=== PATIENT | male | born 1960 | race Caucasian/White ===

== ENCOUNTER 2020-03-02 16:23 | Emergency (ER) | payer OTHER, SELFPAY ==
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
[2020-03-02 16:25] VITALS: BP 142/79; PULSE 76; RESP 20; TEMP 36.6; O2SAT 97
[2020-03-02] MEDS: ACETAMINOPHEN 500 MG TABLET 1000 MG PO (17:08)
--- NOTE | 2020-03-02 17:49 | ED.UPPEXIN ---
HPI - Extremity Injury (Upper) General Chief Complaint: Extremity Injury, Upper Stated Complaint: right hand injury Time Seen by Provider: 03/02/20 16:48 History of Present Illness HPI narrative: Patient is a 59-year-old male who presents the ER with right hand pain. He was working with a drill when it caught in spine and jerked his hand. Initially did not have any pain but over the course of a couple hours she started having a lot of pain with movement and with gripping. No numbness or tingling. No direct trauma. Related Data Allergies Allergy/AdvReac Type Severity Reaction Status Date / Time No Known Allergies Allergy Verified 03/02/20 16:28 Review of Systems Musculoskeletal: Comments: right hand pain and swelling Neurologic: Denies focal weakness and Denies numbness PMFSH Past Medical History Medical History (Updated 03/02/20 @ 17:53 by Isidro Conde MD) Healthy adult male Surgical History Surgical History (Updated 03/02/20 @ 17:51 by Isidro Conde MD) No history of previous surgery Social History Social History (Updated 03/02/20 @ 17:51 by Isidro Conde MD) Smoking status: Never smoker Exam Narrative: Exam Narrative: GENERAL: Well-appearing, well-nourished, and in no acute distress. HEAD: Normocephalic, atraumatic. HEART: Regular rate and rhythm. No murmur heard. Normal peripheral pulses. EXTREMITIES: Palpation over the fourth metacarpal of the dorsal aspect of the hand. Slight swelling. No bruising. FROM of digits/wrist. NV intact. SKIN: Warm, dry, no rash. NEURO: No focal deficits. Alert and oriented x3. PSYCH: Normal mood and affect. Course Course Emergency Course: Informed of results. Shakeel wrap applied by nurse. D/c. Vital Signs Vital signs: Vital Signs Temperature 97.9 F 03/02/20 16:25 Pulse Rate 76 03/02/20 16:25 Respiratory Rate 03/02/20 16:25 Blood Pressure 142/79 H 03/02/20 16:25 Pulse Oximetry 97 03/02/20 16:25 Temperature 97.9 F 03/02/20 16:25 Pulse Rate 76 03/02/20 16:25 Respiratory Rate 20 03/02/20 16:25 Blood Pressure 142/79 H 03/02/20 16:25 Pulse Oximetry 97 03/02/20 16:25 MDM - Extremity Injury (Upper) Imaging Data Radiologist's impression: ITS Impressions Hand X-Ray 03/02/20 16:55 IMPRESSION: No acute osseous findings. Wrist X-Ray 03/02/20 16:55 IMPRESSION: No acute osseous findings. Discharge Plan Discharge Clinical Impression: Hand sprain Patient Disposition: Home, Self-Care Condition: Stable Instructions: Hand Sprain (ED) Additional Instructions: Return to the ER if you suffer new injury, you have chest pain or shortness of breath, you cannot keep down food or water, you have additional concerns. Follow-up/Referrals: PHYSICIAN,CONE CHOCOLATE DIPPER [Primary Care Provider] - Gil Ramírez MD [Physician] - 1 Week
== END 2020-03-02 17:58 | disposition home or self-care (01) ==
PROVIDERS: Emergency Provider Emergency Medicine
DX: S63.91XA Sprain of unspecified part of right wrist and hand, initial encounter (principal); W29.8XXA Contact with other powered hand tools and household machinery, initial encounter
CPT/HCPCS: 73110; 73130; 99283; A9270

== ENCOUNTER 2020-12-23 12:05 | Emergency (ER) | payer OTHER, SELFPAY ==
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
[2020-12-23 12:19] VITALS: BP 151/95; PULSE 87; RESP 18; TEMP 36.7; O2SAT 97
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
[2020-12-23] MEDS: HYDROcodone/acetaminophen (*CRX) 5-325 MG TABLET 1 TAB PO (13:04)
== END 2020-12-23 13:29 | disposition home or self-care (01) ==
PROVIDERS: Emergency Provider Emergency Medicine; PCP Internal Medicine
DX: S16.1XXA Strain of muscle, fascia and tendon at neck level, initial encounter (principal); M54.6 Pain in thoracic spine; J43.9 Emphysema, unspecified; M47.812 Spondylosis without myelopathy or radiculopathy, cervical region; M47.814 Spondylosis without myelopathy or radiculopathy, thoracic region; V49.40XA Driver injured in collision with unspecified motor vehicles in traffic accident, initial encounter
CPT/HCPCS: 71046; 72072; 72125; 73030; 99284; A9270

== ENCOUNTER 2021-01-12 16:51 | Outpatient (CLI) | payer OTHER, SELFPAY ==
--- NOTE | ~2021-01-12 | XR_ITS ---
EXAMINATION: XR clavicle LT DATE: 01/12/2021 17:32 INDICATION: Left shoulder pain. TECHNIQUE: 2 views of left clavicle were obtained. COMPARISON: Left shoulder radiographs 12/23/2020 FINDINGS: Bone alignment is normal. No fracture. The sternoclavicular joint and acromioclavicular bev nt are normal. IMPRESSION: 1. Normal left clavicle. Reviewed, dictated and finalized at location A. IMPRESSION: 1. Normal left clavicle.
--- NOTE | ~2021-01-12 | XR_ITS ---
EXAMINATION: XR_RIBSBICXR1_CR DATE: 01/12/2021 17:31 INDICATION: Dorsalgia. Shoulder pain. TECHNIQUE: A single view of the chest, 3 views of the right ribs, and 3 views of the left ribs were o btained. COMPARISON: Chest 2 views 12/23/2020 FINDINGS: There are lucencies in the lungs, consistent with emphysema. No pleural effusion or pneumot horax. The heart size is normal. There is a fracture of anterior right seventh rib. IMPRESSION: 1. Right seventh rib fracture. 2. Emphysema. Reviewed, dictated and finalized at location A.
--- NOTE | ~2021-01-12 | XR_ITS ---
EXAMINATION: XR thoracic spine 2V DATE: 01/12/2021 17:32 INDICATION: Thoracic back pain. TECHNIQUE: 3 views of thoracic spine were obtained. COMPARISON: Thoracic spine radiographs 12/23/2020, chest single view 12/23/2012 FINDINGS: There is kyphosis of thoracic spine. There is mild chronic anterior wedging of multiple pura tebral bodies. There are endplate osteophytes at most levels. There is mildly decreased disc height a t a level in mid thoracic spine. IMPRESSION: 1. No acute fracture. 2. Mild thoracic spondylosis. 3. Thoracic kyphosis. Reviewed, dictated and finalized at location A.
== END 2021-01-12 16:52 | disposition home or self-care (01) ==
LOC: ANHIMG 16:59
PROVIDERS: PCP Nurse Practitioner Family; Visit Provider Nurse Practitioner Family
DX: S22.31XA Fracture of one rib, right side, initial encounter for closed fracture (principal); J43.9 Emphysema, unspecified; M47.814 Spondylosis without myelopathy or radiculopathy, thoracic region; M40.294 Other kyphosis, thoracic region
CPT/HCPCS: 71111; 72070; 73000

== ENCOUNTER → 2021-03-11 12:58 | Outpatient (CLI) | payer OTHER, SELFPAY ==
--- NOTE | ~2021-03-11 | XR_ITS ---
XR knee RT min 4V DATE: 03/11/2021 16:24 INDICATION: Right knee pain. No injury. TECHNIQUE: AP, PA, lateral and sunrise views COMPARISON: None FINDINGS: No fracture or dislocation or joint effusion. No periosteal reaction or bone destruction. J oint spaces are relatively well preserved. No radiopaque intra-articular loose body or chondrocalcino sis. There is femoral and popliteal artery calcification. IMPRESSION: No significant abnormality of the right knee Reviewed, dictated and finalized at location B.
--- NOTE | ~2021-03-11 | XR_ITS ---
XR knee LT min 4V DATE: 03/11/2021 13:30 INDICATION: Left knee pain. No injury. TECHNIQUE: 4 views including sunrise and standing AP, PA and lateral projections COMPARISON: None FINDINGS: There is evidence of a small suprapatellar knee joint effusion. No fracture or dislocation, radiopaque intra-articular loose body or chondrocalcinosis. Joint spaces appear well preserved. No periosteal reaction or bone destruction. IMPRESSION: Small suprapatellar knee joint effusion Reviewed, dictated and finalized at location B.
== END ==
PROVIDERS: PCP Nurse Practitioner Family; Visit Provider Nurse Practitioner Family
DX: M25.569 Pain in unspecified knee (principal); M25.462 Effusion, left knee
CPT/HCPCS: 73564

== ENCOUNTER 2021-11-21 13:29 | Outpatient (CLI) | payer OTHER, SELFPAY ==
--- NOTE | ~2021-11-21 | CT_ITS ---
EXAMINATION:CT lung screening DATE: 11/21/2021 13:48 INDICATION: Personal history of nicotine dependence. Smoker who quit 4 years ago with 60 pack year hi story. TECHNIQUE: Computed tomography (CT) of the chest was performed without intravenous contrast. Automate d exposure control and iterative reconstruction technique were employed. The dose-length product (DLP ) was 85.87 mGy-cm. COMPARISON: None. FINDINGS: There is moderate emphysema. There is an 8 mm nodule in lingula abutting the medial pleura adjacent to the heart. There are other nodules in lingula measuring up to 7 mm. There is a 5 mm nodul e in left upper lobe. There is a 7 mm nodule in left upper lobe. No pleural effusion. The heart size is normal. There are coronary artery calcifications. No pericardial effusion. There is mild chronic a nterior wedging of multiple thoracic vertebral bodies. There is mild thoracic spondylosis. IMPRESSION: 1. Lung-RADS category 4A: Suspicious. Noncontrast chest CT is recommended in 3 months. Reviewed, dictated and finalized at location B.
== END 2021-11-21 13:30 | disposition home or self-care (01) ==
PROVIDERS: PCP Nurse Practitioner Family; Visit Provider Nurse Practitioner Family
DX: Z12.2 Encounter for screening for malignant neoplasm of respiratory organs (principal); Z87.891 Personal history of nicotine dependence
CPT/HCPCS: 71271

== ENCOUNTER 2022-02-28 12:11 | Outpatient (CLI) | payer OTHER, SELFPAY ==
--- NOTE | ~2022-02-28 | CT_ITS ---
EXAMINATION: CT diagnostic chest wo con DATE: 02/28/2022 12:42 INDICATION: Pulmonary nodules TECHNIQUE: Computed tomography (CT) of the chest was performed without intravenous contrast. The dose -length product was 79.73 mGy-cm. Automated exposure control and iterative reconstruction technique w ere employed. COMPARISON: CT dated 11/21/2021 FINDINGS: Interval resolution of 8 mm left upper lobe nodule located medially on prior study. Stable focal scarring at the left apex posteriorly. There is emphysema. There is a stable 5 mm left upper lo be nodule, image 32. There is emphysema. No endobronchial lesions. There are subtle reticulonodular d ensities in the right lower lobe and right middle lobe adjacent to the fissure, likely postinfectious /inflammatory. No pneumothorax. The upper abdomen is unremarkable. Mild thoracic spondylosis with acc entuated kyphosis. IMPRESSION: 1. Stable 5 mm left upper lobe nodule. Reticulonodular densities in the right middle and lower lobe a djacent to the fissure are likely postinfectious/inflammatory. Follow-up low dose CT chest in 12 barak hs recommended. 2: Emphysema. Reviewed, dictated and finalized at location A. IMPRESSION: 1. Stable 5 mm left upper lobe nodule. Reticulonodular densities in the right m iddle and lower lobe adjacent to the fissure are likely postinfectious/inflamma tory. Follow-up low dose CT chest in 12 months recommended. 2: Emphysema.
== END 2022-02-28 12:12 | disposition home or self-care (01) ==
PROVIDERS: PCP Nurse Practitioner Family; Visit Provider Nurse Practitioner Family
DX: R91.8 Other nonspecific abnormal finding of lung field (principal); J43.9 Emphysema, unspecified
CPT/HCPCS: 71250

== ENCOUNTER 2022-07-12 15:12 | Outpatient (CLI) | payer OTHER, SELFPAY ==
--- NOTE | ~2022-07-12 | XR_ITS ---
Left Shoulder Technique: AP and scapular Y views were obtained. Clinical History: Pain Findings: No fracture or dislocation is seen. Osseous alignment is anatomic. The glenohumeral and acr omioclavicular joint spaces are preserved. Soft tissues are unremarkable. Impression: Unremarkable left shoulder radiographs. Reviewed, dictated and finalized at [facility]. 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
--- NOTE | ~2022-07-12 | XR_ITS ---
Right Shoulder Technique: AP and scapular Y views were obtained. Clinical History: Pain Findings: No fracture or dislocation is seen. Osseous alignment is anatomic. The glenohumeral and acr omioclavicular joint spaces are preserved. Soft tissues are unremarkable. Impression: Unremarkable right shoulder radiographs. Reviewed, dictated and finalized at [facility]. ON PRESSER Impression: Unremarkable right shoulder radiographs.
== END 2022-07-12 15:13 | disposition home or self-care (01) ==
PROVIDERS: PCP Nurse Practitioner Family; Visit Provider Nurse Practitioner Family
DX: M25.519 Pain in unspecified shoulder (principal)
CPT/HCPCS: 73030

== ENCOUNTER 2023-02-19 12:46 | Outpatient (CLI) | payer OTHER, SELFPAY ==
--- NOTE | ~2023-02-19 | CT_ITS ---
CT Scan of the Chest without Contrast: Clinical Indication: Lung cancer screening, personal history of nicotine dependence Technique: Contiguous sections were acquired throughout the chest without intravenous contrast. Dose reduction technique was used on this scan by utilizing automated exposure control and iterative recon struction technique. The dose-length product (DLP) was 95.78 mGy-cm. COMPARISON: 02/28/2022, 11/21/2021 Findings: There is no evidence of any significant mediastinal, hilar or axillary lymphadenopathy. Atherosclerot ic calcifications of the coronary arteries are present. There is no evidence of pleural or pericardial effusion. There is a new 5 mm nodule at the anteromedial right upper lobe (axial image 71). Stable 5 mm left up per lobe pulmonary nodule noted (axial image 35). There is an additional new left upper lobe pulmonar y nodule measuring 6 mm (axial image 50). Previously noted lingular nodules are essentially completel y resolved. There is a new 7 mm nodule in the left lower lobe (axial image 90). Images through the upper abdomen reveal no abnormalities. Impression: Lung RADS 4A: Suspicious. 3 month follow-up screening CT recommended given new 7 mm nodule at the lef t lower lobe. Reviewed, dictated and finalized at location M. Impression: Lung RADS 4A: Suspicious. 3 month follow-up screening CT recommended given new 7 mm nodule at the left lower lobe.
== END 2023-02-19 12:47 | disposition home or self-care (01) ==
PROVIDERS: PCP Nurse Practitioner Family; Visit Provider Nurse Practitioner Family
DX: Z12.2 Encounter for screening for malignant neoplasm of respiratory organs (principal); Z87.891 Personal history of nicotine dependence; R91.8 Other nonspecific abnormal finding of lung field
CPT/HCPCS: 71271

== ENCOUNTER 2023-05-23 12:40 | Outpatient (CLI) | payer OTHER, SELFPAY ==
--- NOTE | ~2023-05-23 | CT_ITS ---
EXAMINATION: CT diagnostic chest wo con DATE: 05/23/2023 12:58 INDICATION: Pulmonary nodules TECHNIQUE: Computed tomography (CT) of the chest was performed without intravenous contrast. The dose -length product (DLP) was 101.59 mGy-cm. Automated exposure control and iterative reconstruction tech [employer] were employed. COMPARISON: 02/19/2023 FINDINGS: There is moderate emphysema. There has been near-complete interval resolution of the new 5 mm right upper lobe nodule on the comparison examination. A 9 mm left lower lobe nodule described as new on the comparison examination has resolved. There are stable nodules of the left upper lobe measu ring up to 6 mm. There is focal airspace opacity in the right upper lobe, consistent with infection/i nflammation. No pleural effusion or pneumothorax. No pathologically enlarged thoracic lymph nodes are identified. The heart size is normal. Calcified coronary artery atherosclerosis is noted. There is m ild thoracic spondylosis. IMPRESSION: 1. Interval resolution of the pulmonary nodules described as new on the recent lung cancer screening CT, consistent with resolved infection/inflammation. 2. New focal airspace opacity in the right upper lobe, consistent with infection/inflammation. 3. Otherwise stable pulmonary nodules. Annual lung cancer screening CT is recommended. Reviewed, dictated and finalized at location B. 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 Interval resolution of the pulmonary nodules described as new on the recent lung cancer screening CT, consistent with resolved infection/inflammation. 2. New focal airspace opacity in the right upper lobe, consistent with infectio n/inflammation. 3. Otherwise stable pulmonary nodules. Annual lung cancer screening CT is recom mended.
== END 2023-05-23 12:41 | disposition home or self-care (01) ==
PROVIDERS: PCP Nurse Practitioner Family; Visit Provider Nurse Practitioner Family
DX: R91.8 Other nonspecific abnormal finding of lung field (principal)
CPT/HCPCS: 71250

== ENCOUNTER 2023-05-31 13:23 | Outpatient (CLI) | payer OTHER, SELFPAY ==
--- NOTE | ~2023-05-31 | MR_ITS ---
MRI of the brain Clinical History: Memory impairment Technique: Axial and sagittal T1-weighted images were acquired. These were followed by axial T2-weigh nicolasa, diffusion weighted, gradient, and FLAIR images. Following intravenous administration of 15 cc Mu ltiHance gadolinium, T1-weighted fat-sat imaging was performed in the axial and coronal planes. Findings: No abnormal signal seen in the brain parenchyma. No acute infarct, intracranial hemorrhage, or mass lesion. Ventricles and subarachnoid spaces are unremarkable. Orbits are unremarkable. Paranasal sinuses and m astoid air cells are clear. Major intracranial flow voids are intact. Sagittal midline structures are intact. No abnormal postcontrast enhancement identified. IMPRESSION: Unremarkable exam. Reviewed, dictated and finalized at location M. STERED RESPIRATORY TECHNICIAN IMPRESSION: Unremarkable exam.
== END 2023-05-31 13:24 | disposition home or self-care (01) ==
PROVIDERS: PCP Nurse Practitioner Family; Visit Provider Nurse Practitioner Family
DX: R41.3 Other amnesia (principal)
CPT/HCPCS: 70553; A9577

== ENCOUNTER 2023-06-14 11:20 | Emergency (ER) | payer OTHER, SELFPAY ==
--- NOTE | ~2023-06-14 | XR_ITS ---
XR chest 2V DATE: 06/14/2023 12:01 INDICATION: Chest pain, upper back pain. No injury. TECHNIQUE: 2 views COMPARISON: 05/23/2023 CT chest 12/23/2020 2 view chest FINDINGS: There is bilateral hyperinflation consistent with COPD. No pulmonary infiltrate or consolidation, pleural effusion or pulmonary vascular congestion or pneumo thorax is detected. Normal heart size. No hilar or mediastinal enlargement. No suspicious osteolytic or osteoblastic lesions are identified. IMPRESSION: Moderate emphysema; no active cardiopulmonary disease Reviewed, dictated and finalized at location L. IN [employer]ORTER
--- NOTE | ~2023-06-14 | XR_ITS ---
EXAMINATION: XR thoracic spine 3V DATE: 06/14/2023 12:01 INDICATION: Centralized upper back pain TECHNIQUE: One AP, lateral and lateral swimmer's views of the thoracic spine were obtained. COMPARISON: 12/23/2020 FINDINGS: Visualized portion of lungs are clear. No pleural effusion or pneumothorax. Cardiomediastinal silhoue tte is normal. Again seen is a mild to moderate thoracic kyphosis with chronic mild anterior wedging of a few mid and lower thoracic vertebral bodies. Multilevel mild thoracic disc height loss and small degenerative endplate osteophytes. IMPRESSION: 1. Mild to moderate thoracic kyphosis with multiple chronic mild compression fractures in the mid to lower thoracic spine. 2. Mild thoracic spondylosis. Reviewed, dictated and finalized at location A. [employer] IMPRESSION: 1. Mild to moderate thoracic kyphosis with multiple chronic mild compression fr actures in the mid to lower thoracic spine. 2. Mild thoracic spondylosis.
[2023-06-14 11:22] VITALS: BP 121/73; PULSE 86; RESP 20; TEMP 36.2; O2SAT 97
--- NOTE | 2023-06-14 11:35 | ECG_ITS ---
Measurements Intervals [place] Rate: 83 P: 14 VT: 163 QRS: -8 QRSD: 88 T: -6 QT: 346 QTc: 407 Interpretive Statements SINUS RHYTHM INCOMPLETE RIGHT BUNDLE BRANCH BLOCK BORDERLINE T WAVE ABNORMALITY- INFERIOR LEADS BORDERLINE ECG NO PREVIOUS ECG AVAILABLE FOR COMPARISON Electronically Signed On 06-14-2023 12:24:09 AUTOMATIC PINSETTER ADJUSTER by Zion Freedman D.O.
--- NOTE | 2023-06-14 11:48 | PC.NURSE ---
pt states they would like to decline the muscle relaxer because they are unable to get a ride after discharge today as well as plans to run errands. pt states they took 800mg of alieve @1000 that is helping relieve the pain.
[2023-06-14 12:35] LABS: Basophils Percent Auto 0.5 % (0.2-1.2); Eosinophils Absolute Auto 0.2 K/mm3 (0-0.3); Eosinophils Percent Auto 3.2 % (0-4.4); Hematocrit 41.5 % (42.0-52.0); Hemoglobin 14.9 g/dL (14.0-18.0); Immature Granulocyte Absolute 0.04 K/mm3 (0.00-0.031); Immature Granulocyte Percent A 0.5 % (0-0.5); Lymphocytes Absolute Auto 1.92 K/mm3 (0.9-3.2); Lymphocytes Percent Auto 25.9 % (18.3-44.2); Mean Corpuscular HGB Conc 35.9 g/dl (32-36); Mean Corpuscular Hemoglobin 33.1 pg (26-34); Mean Corpuscular Volume 92.2 fl (80-100); Mean Platelet Volume 8.3 fl (7.4-10.4); Monocytes Absolute Auto 0.9 K/mm3 (0.1-0.6); Monocytes Percent Auto 12.7 % (2.6-8.5); Neutrophils Absolute Auto 4.2 K/mm3 (1.3-6.7); Neutrophils Percent Auto 57.2 % (45.5-73.1); Platelet Count Result 192 k/mm3 (150-375); Red Cell Distribution Width 12.1 % (11.5-14.5); White Blood Count 7.4 K/mm3 (4.5-10.0)
[2023-06-14 12:45] LABS: Alanine Aminotransferase 41 U/L (6-50); Albumin Level 4.1 g/dL (3.5-5.1); Alkaline Phosphatase 85 U/L (38-126); Anion Gap 7 mmol/L (8-16); Aspartate Amino Transferase 37 U/L (17-59); Bilirubin,Total 0.5 mg/dL (0.2-1.3); Blood Urea Nitrogen 12 mg/dL (9-20); Calcium 8.8 mg/dL (8.4-10.2); Carbon Dioxide 28 mmol/L (22-30); Chloride 100 mmol/L (98-107); Estimated CRCL calculation 102 ml/min; Estimated Glomerular Filt Rate > 60; Glucose 97 mg/dL (65-110); Potassium 4.5 mmol/L (3.4-5.0); Sodium 135 mmol/L (137-145)
[2023-06-14 12:46] LABS: INR 0.9; Prothrombin Time 12.4 Seconds (11.1-14.7)
[2023-06-14 12:48] LABS: Partial Thromboplastin Time 42.2 SECONDS (22.3-36.8)
[2023-06-14 12:59] LABS: Troponin I < 0.012 ng/mL (0.000-0.034)
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
[2023-06-14 14:11] VITALS: BP 119/79
== END 2023-06-14 14:13 | disposition home or self-care (01) ==
PROVIDERS: Emergency Provider Emergency Medicine; PCP Nurse Practitioner Family
DX: M54.6 Pain in thoracic spine (principal); E78.00 Pure hypercholesterolemia, unspecified; K21.9 Gastro-esophageal reflux disease without esophagitis; F41.9 Anxiety disorder, unspecified; F32.A Depression, unspecified; Z87.891 Personal history of nicotine dependence; M47.814 Spondylosis without myelopathy or radiculopathy, thoracic region; J43.9 Emphysema, unspecified; I45.10 Unspecified right bundle-branch block; R94.31 Abnormal electrocardiogram [ECG] [EKG]; M48.54XA Collapsed vertebra, not elsewhere classified, thoracic region, initial encounter for fracture
CPT/HCPCS: 36415; 71046; 72072; 80053; 84484; 85025; 85610; 85730; 93005; 99284

== ENCOUNTER 2023-06-17 12:30 | Inpatient (IN) | payer OTHER, SELFPAY ==
[2023-06-17] VITALS (9 sets, daily range): BP systolic 102–151; BP diastolic 59–106; PULSE 75–130; RESP 13–28; TEMP 36.5–37.2; O2SAT 85–97; BMI 23.6
--- NOTE | ~2023-06-17 | XR_ITS ---
XR chest 2V DATE: 06/17/2023 13:16 INDICATION: Cough, shortness of breath. History of COPD TECHNIQUE: AP and lateral views COMPARISON: 06/14/2023 PA and lateral chest FINDINGS: Bilateral hyperinflation, consistent with clinical diagnosis of COPD. There is interval pulmonary vascular congestion and prominence of the fissures and there are prominen t bilateral Harjeet B-lines. There are bilateral pulmonary infiltrates, predominating in the lower lung zones, right greater than left. Differential diagnosis of the pulmonary infiltrates includes pulmonary edema, pneumonia, aspira tion. Normal heart size. Osteopenia. IMPRESSION: Congestive changes and pulmonary edema Bilateral pulmonary infiltrates which may be due to pulmonary edema or pneumonia or aspiration COPD Reviewed, dictated and finalized at location A. STAND LOADER IMPRESSION: Congestive changes and pulmonary edema Bilateral pulmonary infiltrates which may be due to pulmonary edema or pneumoni a or aspiration COPD
--- NOTE | ~2023-06-17 | CT_ITS ---
EXAMINATION: CTA chest PE protocol DATE: 06/17/2023 18:19 INDICATION: Cough and shortness of breath TECHNIQUE: Computed tomography angiography (CTA) of the chest was performed with 100 mL Omnipaque-350 intravenous contrast timed to evaluate the pulmonary arteries. Coronal maximum intensity projection 3D-reconstructions were created by the technologist. The dose-length product (DLP) was 314.92 mGy-cm. Automated exposure control and iterative reconstruction technique were employed. COMPARISON: 05/23/2023 FINDINGS: The pulmonary arteries are well-opacified. No pulmonary embolism is identified. There are s mall pleural effusions. There is moderate emphysema. There are new airspace opacities of the lower lo bes and right middle lobe. There is a decreasing airspace opacity of the right upper lobe. No pneumot horax is identified. There is mild bilateral hilar lymphadenopathy, likely reactive. The heart size i s normal. Calcified coronary artery atherosclerosis is noted. There is mild thoracic spondylosis. IMPRESSION: 1. Multifocal pneumonia of the lower lobes and right middle lobe. No pulmonary embolus identified. 2. Moderate emphysema. Reviewed, dictated and finalized at location F. CAN HISTORY PROFESSOR
--- NOTE | 2023-06-17 12:46 | ECG_ITS ---
Measurements Intervals [place] Rate: 103 P: 44 [place]: 148 QRS: 73 QRSD: 85 T: 89 QT: 317 QTc: 416 Interpretive Statements SINUS TACHYCARDIA POSSIBLE LEFT ATRIAL ENLARGEMENT INCOMPLETE RIGHT BUNDLE BRANCH BLOCK BORDERLINE T WAVE ABNORMALITY- HIGH LATERAL LEADS BASELINE ARTIFACT- II, III, AVF, V4-V5 BORDERLINE ECG COMPARED TO ECG 06/14/2023 11:47:00 SINUS TACHYCARDIA NOW PRESENT Electronically Signed On 06-17-2023 16:10:54 UNDERWRITING SERVICE REPRESENTATIVE by Zion Freedman D.O.
[2023-06-17 13:15] LABS: Basophils Absolute Auto 0.1 K/mm3 (0.0-0.1); Basophils Percent Auto 0.7 % (0.2-1.2); Eosinophils Absolute Auto 0.2 K/mm3 (0-0.3); Eosinophils Percent Auto 2.1 % (0-4.4); Hematocrit 46.3 % (42.0-52.0); Hemoglobin 15.8 g/dL (14.0-18.0); Immature Granulocyte Absolute 0.04 K/mm3 (0.00-0.031); Immature Granulocyte Percent A 0.5 % (0-0.5); Lymphocytes Absolute Auto 1.28 K/mm3 (0.9-3.2); Lymphocytes Percent Auto 14.7 % (18.3-44.2); Mean Corpuscular HGB Conc 34.1 g/dl (32-36); Mean Corpuscular Hemoglobin 32.7 pg (26-34); Mean Corpuscular Volume 95.9 fl (80-100); Mean Platelet Volume 8.6 fl (7.4-10.4); Monocytes Absolute Auto 0.9 K/mm3 (0.1-0.6); Monocytes Percent Auto 9.9 % (2.6-8.5); Neutrophils Absolute Auto 6.3 K/mm3 (1.3-6.7); Neutrophils Percent Auto 72.1 % (45.5-73.1); Platelet Count Result 204 k/mm3 (150-375); Red Blood Count 4.83 M/mm3 (4.6-6.20); Red Cell Distribution Width 12.3 % (11.5-14.5); White Blood Count 8.7 K/mm3 (4.5-10.0)
[2023-06-17 13:26] LABS: Alanine Aminotransferase 39 U/L (6-50); Albumin Level 4.1 g/dL (3.5-5.1); Alkaline Phosphatase 116 U/L (38-126); Anion Gap 15 mmol/L (8-16); Aspartate Amino Transferase 51 U/L (17-59); Bilirubin,Total 0.7 mg/dL (0.2-1.3); Blood Urea Nitrogen 13 mg/dL (9-20); Calcium 8.6 mg/dL (8.4-10.2); Carbon Dioxide 19 mmol/L (22-30); Chloride 102 mmol/L (98-107); Estimated CRCL calculation 90 ml/min; Estimated Glomerular Filt Rate > 60; Glucose 153 mg/dL (65-110); Potassium 3.9 mmol/L (3.4-5.0); Sodium 136 mmol/L (137-145)
--- NOTE | 2023-06-17 13:29 | ED.SOB ---
HPI - SOB/Dyspnea General Chief Complaint: Shortness of Breath/Dyspnea Stated Complaint: back pain Time Seen by Provider: 06/17/23 13:16 Source: patient and family Mode of arrival: ambulatory Limitations: no limitations History of Present Illness HPI Narrative: 63 YEARS OLD WHITE MALE CAME TO THE EMERGENCY ROOM WITH HIS PATIENT WAS SEEN IN OUR EMERGENCY ROOM 2 DAYS AGO WITH THE SAME SYMPTOMS AND WAS DISCHARGED ON NAPROXEN AND TIZANIDINE. HISTORY OF COPD, HYPERLIPIDEMIA, AND ACID REFLUX. PATIENT DENIES ANY CHEST PAIN. IN THE ED PATIENT IS TELLING ME HE FEELS BETTER RIGHT NOW COMPARED TO AT HOME. AFTER TAKING ALL THIS MEDICATION PRIOR TO ARRIVAL. Related Data Home Medications Medication Instructions Recorded Confirmed omeprazole 20 mg capsule,delayed 20 mg PO DAILY 10/31/21 06/17/23 release alendronate 70 mg tablet 70 mg PO WEEKLY 11/10/22 06/17/23 trazodone 100 mg tablet 100 mg PO HS 11/10/22 06/17/23 albuterol sulfate 90 mcg/actuation 2 puff inhalation Q6H PRN Wheezing 06/17/23 06/17/23 aerosol inhaler cholecalciferol (vitamin D3) 125 125 mcg PO DAILY 06/17/23 06/17/23 mcg (5,000 unit) capsule fluticasone fur. 100 mcg-umeclid 1 inh inhalation QAM 06/17/23 06/17/23 62.5 mcg-vilant 25 mcg inhalat.powder (Trelegy Ellipta) folic acid 1 mg tablet 1 mg PO DAILY 06/17/23 06/17/23 propranolol 10 mg tablet 10 mg PO DAILY 06/17/23 06/17/23 simvastatin 20 mg tablet 20 mg PO DAILY 06/17/23 06/17/23 Allergies Allergy/AdvReac Type Severity Reaction Status Date / Time No Known Allergies Allergy Verified 01/12/23 12:47 Review of Systems Review of Systems: All systems reviewed & are unremarkable except as noted in HPI and below PMFSH Past Medical History Medical History (Updated 06/18/23 @ 04:43 by Lisa Mcghee DO) Anxiety and depression COPD with chronic bronchitis and emphysema Former smoker GERD (gastroesophageal reflux disease) Heavy alcohol use Hypercholesteremia Osteoporosis Surgical History Surgical History History of tonsillectomy Social History Social History (Updated 06/18/23 @ 04:43 by Lisa Mcghee DO) Social History: Patient reports he smoke 1 pack of cigarettes per day but quit smoking in 2019. He occasionally will vape some marijuana. He is single and never been . He does not have any children. He lives alone. 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 Code status: Full code Smoking packs per day: 1 Smoking cigarettes per day: 20.0 Years smoked: 40 Smoking pack-years: 40.00 Smoking status: Former smoker Tobacco type: cigarettes Second hand tobacco smoke exposure: No Smoking end date: 04/15/91 Alcohol intake: current Drinks per week: 4 Alcohol use details: wine Substance use: never Substance use type: does not use Do You Feel Safe in your Home?: Yes Lack of Transportation: No Lack of Food: Never True Current Housing: I Have Housing Concerned About Future Housing: No Difficulty Paying Gas/Electric Bills: No Difficulty Paying for Meds: No Currently Unemployed: No Education: High School Diploma/GED Difficulty w/ Childcare or Family Care: No Living arrangements: with family Occupation/Education: unemployed 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 Gender identity (if verbalized by the patient): Male Spiritual care concerns: No Exam Narrative: GENERAL APPEARANCE: WELL-DEVELOPED, WELL-NOURISHED SKIN: NORMAL COLOR HEAD: NORMOCEPHALIC, NONTRAUMATIC EYES: CLEAR CONJUNCTIVA ENT: OROPHARYNX NORMAL, EARS NORMAL, NOSE NORMAL NECK: SUPPLE, NONTENDER CHEST AND RESPIRATORY: AIRWAY PATENT, NO RESPIRATORY DISTRESS, NO ACCESSORY MUSCLE USE HEART: REGULAR RATE/RHYTHM ABDOMEN: SOFT, NONTENDER, NO ORGANOMEGALY, QUIET BOWEL SOUNDS VASCULAR: NORMAL PERIPHERAL PULSES, NORMAL CAPILLARY REFILL. MUSCULOSKELETAL: NORMAL RANG
[2023-06-17 13:51] LABS: Influenza A QL RT-PCR Negative (Negative); Influenza B QL RT-PCR Negative (Negative); RSV RNA, RT-PCR Negative (Negative); SARS-CoV-2 RNA PCR Negative (Negative)
[2023-06-17 15:02] LABS: Influenza A QL RT-PCR Negative (Negative); Influenza B QL RT-PCR Negative (Negative); RSV RNA, RT-PCR Negative (Negative); SARS-CoV-2 RNA PCR Negative (Negative)
[2023-06-17 15:54] LABS: CRP 1.9 mg/dL (<1.0)
[2023-06-17 16:13] LABS: Troponin I 0.534 ng/mL (0.000-0.034)
[2023-06-17 16:15] LABS: D Dimer 0.85 ug/mL (<0.48)
[2023-06-17 16:36] LABS: Erythrocyte Sedimentation Rate 18 mm/hr (0-20)
[2023-06-17] MEDS: ONDANSETRON INJ 4 MG/2 ML VIAL IV PUSH (17:54)
[2023-06-17] MEDS: MORPHINE SULFATE (*CRX) 4 MG/ML INJ IV PUSH (17:54)
--- NOTE | 2023-06-17 18:42 | ECG_ITS ---
Measurements Intervals [place] Rate: 93 P: 40 [place]: 175 QRS: 58 QRSD: 81 T: 76 QT: 330 QTc: 411 Interpretive Statements SINUS RHYTHM BORDERLINE ST-T WAVE ABNORMALITY- HIGH LATERAL LEADS BORDERLINE ECG COMPARED TO ECG 06/17/2023 12:51:50 SINUS RHYTHM NOW PRESENT Electronically Signed On 06-18-2023 6:46:59 SUPERVISOR RIVETING by Zion Freedman D.O.
[2023-06-17] MEDS: ASPIRIN 81 MG CHEWABLE TABLET 324 MG PO (18:49)
[2023-06-17] MEDS: diazePAM INJ (*CRX) 10 MG/2 ML SYRINGE 5 MG IV PUSH (18:50)
[2023-06-17] MEDS: IPRATROPIUM BR 0.02% INH SOLN 0.5 MG/2.5 ML VIAL INHALATION (20:42)
[2023-06-17] MEDS: ALBUTEROL SULFATE NEB 2.5 MG/3 ML INH INHALATION (20:42)
[2023-06-17] MEDS: HEPARIN SOD/D5W 100 UNITS/ML 25,000 UNITS/250 ML BAG 9 UNITS IV CONT (21:04)
[2023-06-17] MEDS: HEPARIN SODIUM 5,000 UNITS/ML VIAL 4000 UNITS IV PUSH (21:04)
--- NOTE | 2023-06-17 21:56 | ADMGEN ---
This patient, Edgar Laguna, was admitted to IMU Room 202-01. @[id number] Patient/family oriented to hospital policies and general routines including ID bracelet, bed and alarms, visiting hours, pain management, procedures, bathroom and other care routines, personal items, smoking policy, room service/diet, and visiting hours. Information on how to activate the Rapid Response Team has been discussed. Patient/Family are encouraged to report perceived risks to care and to ask questions if they do not understand what they are told or what they should do.
[2023-06-17] MEDS: AZITHROMYCIN 500 MG/NS 250 ML 500 MG/250 ML BAG 250 MG IVPB (22:04)
[2023-06-17 22:36] LABS: Lipase 207 U/L (23-300)
--- NOTE | 2023-06-17 22:57 | ECG_ITS ---
Measurements Intervals [place] Rate: 93 P: 52 [place]: 162 QRS: 79 QRSD: 85 T: 81 QT: 329 QTc: 410 Interpretive Statements SINUS RHYTHM INCOMPLETE RIGHT BUNDLE BRANCH BLOCK BASELINE ARTIFACT- I, III, AVR, AVL, V1 BORDERLINE ECG COMPARED TO ECG 06/17/2023 19:10:47 NO SIGNIFICANT CHANGES Electronically Signed On 06-18-2023 7:45:56 STEWARD/STEWARDESS SECOND CLASS by Zion Freedman D.O.
[2023-06-18] VITALS (27 sets, daily range): BP systolic 70–126; BP diastolic 59–81; PULSE 72–109; RESP 12–24; TEMP 36.4–37; O2SAT 91–100
--- NOTE | 2023-06-18 | ECHO_ITS ---
Patient Info Name: Edgar Laguna Age: 63 years : 1960 Gender: Male Ht: 61 in Wt: 168 lbs BSA: 1.84 m2 HR: 86 bpm BP: 101 / 67 mmHg Heart Rhythm: Sinus Rhythm Technical Quality: Poor Exam Date: 06/18/2023 9:18 AM Exam Location: Echo Lab Patient Status: Outpatient Admit Date: 06/17/2023 Staff Ordering Physician: Lisa Mcghee DO Attending Provider: Lisa Mcghee DO Referring Physician: Taz MELARA; Exam Type: CA echo dop color flow w con Study Info Indications I21.4 - Non-ST elevation (NSTEMI) myocardial infarction Complete two-dimensional, color flow and Doppler transthoracic echocardiogram is performed with contrast to opacify the left ventricle and to improve the deliniation of the left ventricle endocardial borders. Contrast/Agitated Saline Contrast/Ag. Saline: Definity Amount: 2.00 ml Existing IV Access: Yes IV Access Condition: patent with no signs of infiltration Reason for Poor Study: patient body habitus Summary 1. Technically difficult study with limited views. Definity contrast administered. 2. Left ventricular chamber dimension is normal. 3. Left ventricular systolic function is moderately reduced, estimated at 30-35%. Akinesis of the apex with relative sparing at the bases. 4. There is mild to moderately increased left ventricular wall thickness. 5. The left ventricular diastolic function is grade I diastolic dysfunction. 6. Heavy trabeculation noted at the LV apex, however, there is no clear thrombus visualized in the left ventricle. 7. There is mild mitral valve regurgitation. Left Ventricle Left ventricular chamber dimension is normal. Left ventricular systolic function is moderately reduced, estimated at 30-35%. Akinesis of the apex with relative sparing at the bases. There is mild to moderately increased left ventricular wall thickness. The left ventricular diastolic function is grade I diastolic dysfunction. Heavy trabeculation noted at the LV apex, however, there is no clear thrombus visualized in the left ventricle. Technically difficult study with limited views. Definity contrast administered. Right Ventricle Right ventricular chamber dimension is normal. Right ventricular systolic function is mildly reduced. TAPSE 1.7. Left Atria Left atrial chamber dimension is normal. Right Atria Right atrial chamber dimension is normal. Aortic Valve The aortic valve is not well visualized. There is no aortic valve stenosis. There is no aortic valve regurgitation. Pulmonic Valve The pulmonic valve is not well visualized. There is trace pulmonic regurgitation. Mitral Valve The mitral valve has thickened leaflets. There is mild mitral valve regurgitation. The mitral valve annulus is mildly calcified. Tricuspid Valve The tricuspid valve is not well visualized. Unable to estimate PA systolic pressure due to poor spectral resolution of tricuspid regurgitant jet velocity. Pericardium/Pleural The pericardium appears not well visualized. Inferior Vena Cava Normal inferior vena cava with >50% collapse upon inspiration consistent with normal right atrial pressure, 5 mmHg. Aorta The aortic root size at the sinus of Valsalva is normal. There is mild aortic atherosclerosis. Left Ventricular Outflow Tract Name Value Normal LVOT 2D
[2023-06-18] MEDS: NITROGLYCERIN SL 0.4 MG TABLET SUBLINGUAL (02:26)
[2023-06-18] MEDS: IPRATROPIUM BR 0.02% INH SOLN 0.5 MG/2.5 ML VIAL INHALATION ×4 (02:37→21:06)
[2023-06-18] MEDS: ALBUTEROL SULFATE NEB 2.5 MG/3 ML INH INHALATION ×4 (02:37→21:06)
[2023-06-18] MEDS: NITROGLYCERIN OINTMENT 1 INCH DOSE TRANSDERM ×3 (02:49→11:35)
[2023-06-18 03:33] LABS: Basophils Absolute Auto 0.1 K/mm3 (0.0-0.1); Basophils Percent Auto 0.6 % (0.2-1.2); Eosinophils Absolute Auto 0.2 K/mm3 (0-0.3); Eosinophils Percent Auto 1.4 % (0-4.4); Hematocrit 39.5 % (42.0-52.0); Hemoglobin 13.6 g/dL (14.0-18.0); Immature Granulocyte Absolute 0.04 K/mm3 (0.00-0.031); Immature Granulocyte Percent A 0.4 % (0-0.5); Lymphocytes Absolute Auto 2.34 K/mm3 (0.9-3.2); Lymphocytes Percent Auto 21.2 % (18.3-44.2); Mean Corpuscular HGB Conc 34.4 g/dl (32-36); Mean Corpuscular Volume 95.9 fl (80-100); Mean Platelet Volume 8.8 fl (7.4-10.4); Monocytes Absolute Auto 1.1 K/mm3 (0.1-0.6); Monocytes Percent Auto 9.5 % (2.6-8.5); Neutrophils Absolute Auto 7.4 K/mm3 (1.3-6.7); Neutrophils Percent Auto 66.9 % (45.5-73.1); Platelet Count Result 180 k/mm3 (150-375); Red Blood Count 4.12 M/mm3 (4.6-6.20); Red Cell Distribution Width 12.5 % (11.5-14.5)
--- NOTE | 2023-06-18 03:44 | PM.IMHP ---
H&P: HPI History of Present Illness Date/Time: 06/18/23 03:44 Chief Complaint: back pain Narrative: 63-year-old male with past medical history of osteoporosis, COPD, hypertension, GERD and insomnia who presented to the ER via private vehicle due to mid upper back pain. The patient reports that he has had 4 days of back pain. He came to the ER couple of days ago receive prescriptions for tramadol and Flexeril. He reports that the pain did not improved despite taking 100 mg of tramadol, naproxen, and 1.5 g of Tylenol. So I decided she drinks some rubs which seemed to help his pain. He went to bed and fell asleep. When he woke up the pain had returned. When it returned nose accompanied by chest heaviness that extended across his shoulders. The pain went up into his lower neck. With the onset of the chest pain he then began having severe shortness of breath. He denies having any increased cough from baseline, lower extremity swelling. But he has been having some increased dyspnea on exertion for a couple of days. He he states that he had CT of his chest in May to monitor for possible lung cancer. This CT at that time demonstrated a right upper lobe infiltrate. Two days later she was diagnosed with COVID and had COVID symptoms for 2 weeks. He had chest x-ray on his initial ER visit which demonstrated emphysema. His repeat x-ray on this visit demonstrated?Congestive changes and pulmonary edema with bilateral pulmonary infiltrates with differential including edema pneumonia or atelectasis. Patient had a CTA of the chest performed due to elevated D-dimer which demonstrated multifocal pneumonia bilateral lower lobes and right middle lobe. Patient denies any increased cough for sputum production. He has not had any chills and his temperature has been normal. He reports that when he had the onset of chest pain which prompted him to come to the ER he did have some diaphoresis but denies significant nausea. He denies having any palpitations. His CTA was negative for pulmonary embolism. He has had to mild recurrences of his chest pain since arrival to the IMU. The patient is fixated on his back pain no and is insistent that he is not going to take any other pain medications except for Tylenol until his pain is unbearable. The patient was given a sublingual nitroglycerin which resolved his chest pain. His chest pain has not recurred since he placed on nitropaste. His back pain remained constant and is worse with palpation of his back but no discrete pinpoint tenderness to spinous processes. Review of Systems Review of Systems: 12 systems were reviewed with pertinent positives and negatives per HPI. Except as documented in the HPI, all other systems were reviewed and are negative. He denies any history of drug use besides occasional vaping of THC. He reports that his weight has been stable. She does have osteoporosis and his pain in his back is similar to when he had a prior compression fracture but is further up in his back. He reports that the pain is similar to the pain he had when he had adhesive capsulitis of bilateral shoulders. [facility] Past Medical History Medical History (Updated 06/18/23 @ 08:18 by Lisa Mcghee DO) Anxiety and depression COPD with chronic bronchitis and emphysema Former smoker GERD (gastroesophageal reflux disease) Heavy alcohol use Hypercholesteremia Osteoporosis with prior thoracic compression fractures Surgical History Surgical History History of tonsillectomy Social History Social History (Updated 06/18/23 @ 04:43 by Lisa Mcghee DO) Social History: Patient reports he smoke 1 pack of cigarettes per day but quit smoking in 2019. He occasionally will vape some marijuana. He is single and never been . He does not have any children. He lives alone. 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 Code status: Full code
[2023-06-18 03:48] LABS: Cholesterol 164 mg/dL (0-200); HDL Direct 45 mg/dL; Triglycerides 152 mg/dL (<150)
[2023-06-18 03:57] LABS: Partial Thromboplastin Time 73.7 SECONDS (22.3-36.8)
[2023-06-18 03:59] LABS: LDL Cholesterol Direct 87 mg/dL
[2023-06-18] MEDS: MORPHINE SULFATE (*CRX) 2 MG/ML INJ 4 MG IV PUSH (07:58)
[2023-06-18] MEDS: ASPIRIN 81 MG CHEWABLE TABLET PO (08:29)
[2023-06-18] MEDS: CHOLECALCIFEROL 1,000 UNITS TABLET 5000 UNITS PO (08:29)
[2023-06-18] MEDS: SIMVASTATIN 20 MG TABLET PO (08:29)
[2023-06-18] MEDS: PANTOPRAZOLE 40 MG TABLET PO (08:30)
[2023-06-18] MEDS: PROPRANOLOL HCL 10 MG TABLET PO (08:30)
[2023-06-18] MEDS: FOLIC ACID 1 MG TABLET PO (08:30)
[2023-06-18 09:23] LABS: Barbiturate Screen Urine Negative (Negative); Benzodiazepines Screen Urine Positive (Negative)
[2023-06-18 09:27] LABS: Amphetamine Screen Urine Negative (Negative); Cannabinoid Screen Urine Positive (Negative); Cocaine Screen Urine Negative (Negative); Methadone Screen Urine Negative (Negative); Opiate Screen Urine Positive (Negative); Phencyclidine Screen Urine Negative (Negative)
--- NOTE | 2023-06-18 09:57 | PM.CNCAR ---
Assessment and Plan Assessment and plan (1) Non-STEMI (non-ST elevated myocardial infarction): Code(s): I21.4 - Non-ST elevation (NSTEMI) myocardial infarction Status: Acute Assessment and Plan: Patient presents with progressive upper back pain new, severe chest pain with associated shortness of breath resolved with nitroglycerin, significant elevation in his troponin consistent with NSTEMI. He has no prior known history of CAD treated he remains pain-free with nitroglycerin paste. Continue heparin infusion for now. Continue simvastatin with goal LDL less than 70. I advised invasive angiography for delineation of his coronary anatomy possible percutaneous intervention and stent implantation. At great length, we discussed the pros and cons of angiography including risks and benefits including but not limited to bleeding/infection, myocardial infarction, stroke, arrhythmia, and or . Patient verbalized understanding and agreed to proceed with plan of care. All questions answered to his satisfaction. Obtained 2D echocardiogram to assess LV function, valve pathology, pulmonary pressures no wall motion abnormalities. 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 Continue aspirin 81 mg daily, simvastatin 20 mg at bedtime. Explained the high risk nature of his presentation and concern given significant troponin elevation consistent with injury and acute myocardial infarction. Patient verbalized understanding and agreed with plan of care. (2) Ischemic cardiomyopathy: Code(s): I25.5 - Ischemic cardiomyopathy Status: Acute Assessment and Plan: Echo personally reviewed. If moderately reduced 30-35% with akinetic apex. Optimize guideline directed medical therapy. Add Toprol XL 25 mg daily as tolerated and as BP permits Lisinopril 5mg daily or Entresto 24/26mg BID depending upon coronary angiography. Patient is not clinically in decompensated heart failure at this time. Continue to monitor volume status. Patient at elevated risk for ventricular arrhythmias, CHF. (3) Hypercholesteremia: Code(s): E78.00 - Pure hypercholesterolemia, unspecified Status: Acute Assessment and Plan: Check lipid panel. Continue simvastatin 20 mg daily. Dose adjustment for goal LDL less than 70. (4) Back pain: Qualifiers: Back pain laterality: midline Back pain location: thoracic back pain Chronicity: acute Qualified Code(s): M54.6 - Pain in thoracic spine Code(s): M54.9 - Dorsalgia, unspecified Status: Acute Assessment and Plan: Management per primary service. Unclear if predominantly a function of referred pain related to NSTEMI versus musculoskeletal pain. (5) COPD with chronic bronchitis and emphysema: Code(s): J44.89 - Other specified chronic obstructive pulmonary disease; J43.9 - Emphysema, unspecified Status: Acute Assessment and Plan: Encouraged remains smoke-free. Monitor O2 saturations. Bronchodilator therapy as warranted. Defer to primary service. (6) Alcohol dependence: Code(s): F10.20 - Alcohol dependence, uncomplicated Status: Acute Assessment and Plan: Strongly encouraged to cut down and abstain from excessive alcohol intake. (7) Former smoker: Code(s): Z87.891 - Personal history of nicotine dependence Status: Acute Assessment and Plan: Encouraged to remain smoke-free as above. History of Present Illness History of Present Illness Consult date/time: Date of service:06/18/23 09:57 Requesting physician: Lisa Mcghee DO Consult reason: Other (NSTEMI) Reason For Visit: Non-STEMI, Pneumonia Narrative: Patient is a 63-year-old male with past medical history significant for remote tobacco abuse, COPD, alcohol dependence, hyperlipidemia, GERD, osteoarthritis who presented emergency department with complaints of progressive upper back pain for approximately 5 days minimally responsive to Tyle
[2023-06-18] MEDS: FLUTICASONE/UMECLIDIN/VILANTER 100-62.5-25 MCG ELLIPTA 1 PUFF INHALATION (10:00)
[2023-06-18] MEDS: PERFLUTREN LIPID MICROSPHERES 1.5 ML VIAL DILUTED TO 10 ML TOTAL VOLUME IV PUSH (10:16)
[2023-06-18 10:27] LABS: Partial Thromboplastin Time 61.7 SECONDS (22.3-36.8)
[2023-06-18] MEDS: HEPARIN SODIUM 5,000 UNITS/ML VIAL 3000 UNITS IV PUSH (10:39)
[2023-06-18] MEDS: traMADol HCL (*CRX) 50 MG TABLET PO (11:31)
--- NOTE | 2023-06-18 14:22 | WPDMODSED ---
Moderate Sedation Note-Pt Data Patient Data Diagnosis: NSTEMI Present Complaint: chest Procedure to be performed/Plan: coronary angiogram left heart catheterization stent Allergies Allergy/AdvReac Type Severity Reaction Status Date / Time No Known Allergies Allergy Verified 01/12/23 12:47 Home Medications Medication Instructions Recorded Confirmed Type omeprazole 20 mg capsule,delayed 20 mg PO DAILY 10/31/21 06/17/23 History release alendronate 70 mg tablet 70 mg PO WEEKLY 11/10/22 06/17/23 History trazodone 100 mg tablet 100 mg PO HS 11/10/22 06/17/23 History naproxen 500 mg tablet 500 mg PO BID #14 tabs 06/14/23 06/17/23 Rx tizanidine 2 mg capsule 2 mg PO Q8H PRN muscle spasticity 06/14/23 06/17/23 Rx #14 caps albuterol sulfate 90 mcg/actuation 2 puff inhalation Q6H PRN Wheezing 06/17/23 06/17/23 History aerosol inhaler cholecalciferol (vitamin D3) 125 125 mcg PO DAILY 06/17/23 06/17/23 History mcg (5,000 unit) capsule fluticasone fur. 100 mcg-umeclid 1 inh inhalation QAM 06/17/23 06/17/23 History 62.5 mcg-vilant 25 mcg inhalat.powder (Trelegy Ellipta) folic acid 1 mg tablet 1 mg PO DAILY 06/17/23 06/17/23 History propranolol 10 mg tablet 10 mg PO DAILY 06/17/23 06/17/23 History simvastatin 20 mg tablet 20 mg PO DAILY 06/17/23 06/17/23 History Current Medications: Active Medications Acetaminophen (Acetaminophen 500 Mg Tablet) 1,000 mg PO Q6H PRN PRN Reason: Mild Pain (1-3) or Fever Albuterol (Albuterol Sulfate Neb 2.5 Mg/3 Ml Inh) 2.5 mg INHALATION Q6HRT [facility] Last Admin: 06/18/23 10:00 Dose: 2.5 mg Aspirin (Aspirin 81 Mg Chewable Tablet) 81 mg PO DAILY@0800 [facility] Last Admin: 06/18/23 08:29 Dose: 81 mg Diazepam (Diazepam Inj (*Crx) 10 Mg/2 Ml Syringe) 5 mg IV PUSH Q8H PRN PRN Reason: muscle spasm Fluticasone/Umeclidinium/Vilanterol (Fluticasone/Umeclidin/Vilanter 100-62.5-25 Mcg Ellipta) 1 puff INHALATION DAILYRT [facility] Last Admin: 06/18/23 10:00 Dose: 1 puff Folic Acid (Folic Acid 1 Mg Tablet) 1 mg PO DAILY [facility] Last Admin: 06/18/23 08:30 Dose: 1 mg Heparin Sodium (Porcine) (Heparin Sodium 5,000 Units/Ml Vial) 4,000 units IV PUSH PRN PRN PRN Reason: aPTT less than 55 seconds Heparin Sodium (Porcine) (Heparin Sodium 5,000 Units/Ml Vial) 3,000 units IV PUSH PRN PRN PRN Reason: aPTT 55 - 70 seconds Last Admin: 06/18/23 10:39 Dose: 3,000 units Heparin Sodium/Dextrose (Heparin Sodium/D5w 100 Units/Ml) 25,000 units in 250 mls @ 11 mls/hr IV CONT .[id number] [facility]; Protocol Last Titration: 06/18/23 10:40 Dose: 1,100 units/hr, 11 mls/hr Ceftriaxone Sodium (Rocephin 1 Gm/Ns 50 Ml) 1 gm in 50 mls @ 100 mls/hr IVPB Q24H [facility] Azithromycin (Zithromax) 500 mg in 250 mls @ 250 mls/hr IVPB Q24H [facility] Ipratropium [place] (Ipratropium Br 0.02% Inh Soln 0.5 Mg/2.5 Ml Vial) 0.5 mg INHALATION Q6HRT [facility] Last Admin: 06/18/23 10:00 Dose: 0.5 mg Metoprolol Succinate (Metoprolol Succinate Ext Rel 25 Mg Tabcr) 25 mg PO QAM [facility] Morphine Sulfate (Morphine Sulfate (*Crx) 2 Mg/Ml Inj) 4 mg IV PUSH Q2H PRN PRN Reason: Pain Rated 7-10 Last Admin: 06/18/23 07:58 Dose: 4 mg Nitroglycerin (Nitroglycerin Sl 0.4 Mg Tablet) 0.4 mg SUBLINGUAL Q5MIN PRN PRN Reason: Chest Pain Last Admin: 06/18/23 02:26 Dose: 0.4 mg Nitroglycerin (Nitroglycerin Ointment 1 Inch Dose) 1 inch TRANSDERM Q6HR [facility] Last Admin: 06/18/23 11:35 Dose: 1 inch Pantoprazole Sodium (Pantoprazole 40 Mg Tablet) 40 mg PO DAILY [facility] Stop: 07/18/23 08:59 Last Admin: 06/18/23 08:30 Dose: 40 mg Perflutren Lipid Microsphere (Perflutren Lipid Microspheres 1.5 Ml Vial Diluted To 10 Ml Total Volume) 0 ml IV PUSH ONCE PRN; Protocol PRN Reason: adequate visualization Stop: 06/21/23 03:51 Propranolol HCl (Propranolol Hcl 10 Mg Tablet) 10 mg PO DAILY [facility] Last Admin: 06/18/23 08:30 Dose: 10 mg Simvastatin (Simvastatin 20 Mg Tablet) 20 mg PO DAILY [facility] Last Admin: 06/18/23 08:29 Dose: 20 mg Tramadol HCl (Tramadol
--- NOTE | 2023-06-18 14:24 | WPDHPUPDATE1 ---
History and Physical Update Update Date/Time: 06/18/23 14:24 History and Physical has been reviewed, including an updated exam of the patient. There are NO changes in the patient's condition. Risks, benefits, and alternatives have been discussed and questions answered. Patient agrees to proceed with procedure.
--- NOTE | 2023-06-18 14:28 | WPDCARDPROC ---
Cardiac Cath Procedure Note Date of procedure:: 06/18/23 Performing physician:: Isadora Ruvalcaba MD Indication:: NSTEMI Brief clinical history:: this 63-year-old patient with history of tobacco abuse, history of alcohol abuse presents to the hospital with chest pain was found to have elevated troponins and therefore patient is here for cardiac catheterization. Procedure Procedure performed:: 1-Moderate sedation that started at 12:23 p.m.and ended at 2:18 p.m. total duration 101 minutes using 1mg of Versed and 50mcg fentanyl. The registered nurse was carolee wilcox. 2-Selective left and right coronary angiogram. 3-Left heart catheterization with measurement of LVEDP and measurement of gradient across aortic valve. 4- intravascular ultrasound of the LAD and the left main. 5- Deployment of a drug-eluting stent orsiro 2.75 by 20 to cover the mid LAD. 6- deployment of a drug-eluting stent 3 x 30 vanda covering proximal LAD in overlapping the mid stent. 7- deployment with drug-eluting stent 3.5 x 18 covering left main into the LAD stent in overlapping fashion. 4-Right common femoral arterial angiogram. 5-Deployment of 6 Tristanian Angio-Seal. Sedation/Medication given:: Moderate sedation. Access site:: Right common femoral artery. Estimated blood loss:: 10cc Procedure note:: After informed consent patient was brought in to laborer cement gun placing with the was draped and prepped in usual manner. Moderate sedation was given and the right groin was infiltrated using 1% lidocaine. Five Tristanian sheath was obtained using micropuncture needle and the modified Seldinger technique. Selective left coronary angiogram was done using JL4 catheter with the tip of the catheter placed in the left main coronary artery. Selective right coronary angiogram was done using JR4 catheter with the tip of the catheter placed to the right coronary artery. After that The JR4 catheter was advanced across the aortic valve into the left ventricle with measurement of LVEDP and measurement of gradient across aortic valve. Right common femoral arterial angiogram was done. - subsequently left main was engaged using 6 Tristanian CLS 3.5 guide catheter then we attempted to wire the LAD using the luge wire without success and then we used BMW wire. After that balloon angioplasty of the mid LAD was done using 3 by 10 balloon under nominal pressure for 10 seconds. And then balloon angioplasty of proximal LAD done using the same under normal pressure for 10 seconds. Then after that deployment of a drug-eluting stent orsiro 2.75 x 20 to cover the mid LAD under normal pressure for about 10 seconds. at that time we noticed that the left main disease became hazy and unstable . also noticed at proximal to the mid LAD stent there was significant disease in the LAD. Intravascular ultrasound was taken and measured the left main which was 3.5 mm. we took another wire luge into the left circumflex artery. I took another stent vanda 3 x 30 cover the proximal LAD in overlapping the mid LAD stent under nominal pressure for 10 seconds and then the stent balloon was used to dilated the overlap segment. subsequently a another stent 3.5 x 18 vanda was used to cover the ostial left main into the proximal LAD stent under normal pressure for 10 seconds and then the stent balloon was used to post dilate the overlap segment. Subsequently post dilatation of the stents, the mid LAD stent using 2.75 x 20 noncompliant balloon under 20 atmospheres for 10 seconds with 2 inflations and then we used 3 x 20 noncompliant balloon to inflate in the proximal LAD stents under normal pressure for 10 seconds. And then 3.5 by 20 noncompliant balloon under 20 atmospheres for 10 seconds 2 inflations. after that 6 Tristanian Angio-Seal deployed. during the case we had to give a couple dosages of phenylephrine and then restarted patient on Levophed due to low blood pressure. he responded very well to Levophed. Findings:: 1- left coronary artery is a la
[2023-06-18] MEDS: LACTATED RINGERS 1,000 ML 100 ML IV CONT (16:00)
[2023-06-18] MEDS: SODIUM CHLORIDE 0.9% IV 1,000 ML 125 ML IV CONT (16:01)
--- NOTE | 2023-06-18 18:13 | PC.NURSE ---
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 Oriented to unit policies, call light and post cath orders. call light within reach.
--- NOTE | 2023-06-18 18:29 | PM.IMPN ---
Progress Note: A&P Assessment and Plan (1) Non-STEMI (non-ST elevated myocardial infarction): Code(s): I21.4 - Non-ST elevation (NSTEMI) myocardial infarction Status: Acute Assessment and Plan: Patient presents with back pain. He was hypoxic at 91% on 3L on admission. EKG showing sinus tach, possible LAE, iRBBB and borderline T wave changes in the high lateral leads CXR showing congestive changes, pulmonary edema, Bilateral pulmonary infiltrates (edema or PNA or aspiration) and COPD? CTA chest showing multifocal pneumonia of the lower lobes and right middle lobe, no PE and moderate emphysema. Troponin elevated on admission and climbed to 9.8. Recieved nebs in ED. Hypoxia resolved. Abx started. Echo showing EF 30-35% with akinesis of the apex and Grade I diastolic dysfunction. Cardiology consulted and patient went for C earlier today showin- left coronary artery is a large artery that divides into large LAD, large circumflex artery.? Left main is the lesion of about 40% however later on became unstable and his during the intervention. 2- left anterior descending artery is a large artery that runs and wraps around the apex. has a proximal lesion about 90% mid lesion of about 90% also. 3- leftcircumflex artery is a large artery? and codominant.? Ostial and proximal 50%. 4- right coronary artery is ? medium in size, ostial and proximal 50%, mid 50% 5- LVEDP was 10mmhg and no gradient across aortic valve. 6- opening arterial pressure was 94/50 and closing pressure was 106/60 . 7- right femoral artery angiogram shows no significant disease in the right common femoral artery. PCI and PARMINDER to Mid-LAD; a 2nd stent proximal LAD overlapping the mid LAD and 3rd stent to cover the ostial left main into the proximal LAD in overlapping fashion Medical management with ASA, Brilinta, Zocor. No Toprol due to HoTN Stop NTP. Apprecaite cardiology input. (2) Shock: Code(s): R57.9 - Shock, unspecified Status: Acute Assessment and Plan: During the heart cath, patient was HoTN requiring a couple dosages of phenylephrine but ultimately needed to be started on Levophed due to low blood pressure. BP improved. Monitor closely in ICU' Wean Levophed as BP toelrates. (3) COPD with chronic bronchitis and emphysema: Code(s): J44.89 - Other specified chronic obstructive pulmonary disease; J43.9 - Emphysema, unspecified Status: Acute Assessment and Plan: Patient did have hypoxia in the ER on presentation. Imaging as above. Consider pulmonary edema over PNA givnen the low EF. Patient recently had COVID and could directly have residual pneumonia due to recent COVID. Continue abx and nebs. Consider Lasix when more stable. No evidence of acute COPD flare. (4) Heavy alcohol use: Code(s): F10.90 - Alcohol use, unspecified, uncomplicated Status: Acute Assessment and Plan: Patient reports he drinks a little over a bottle of wine 5 days a week. He denies history of alcohol withdrawal. Patient was educated about the benefits abstaining from alcohol use Contineu Folic acid. Continue PPI Add Thiamine. (5) Back pain: Qualifiers: Back pain laterality: midline Back pain location: thoracic back pain Chronicity: acute Qualified Code(s): M54.6 - Pain in thoracic spine Code(s): M54.9 - Dorsalgia, unspecified Status: Acute Assessment and Plan: Patient was having back pain that is reproducible to palpation. Thoracic xray showing mild-mod thoracic kyphosis with multiple chronic mild compression fractues which probably the etiology of his back pain. Out of bed when able. Plan DVT prophylaxis -Lovenox Code status -full Subjective Date/time seen: 06/18/23 18:29 Interval history: 63yo male with osteoporosis, COPD, hypertension, GERD and insomnia who presented to the ER via private vehicle due to mid upper back pain.? Patient underwent L
[2023-06-18] MEDS: AZITHROMYCIN 500 MG/NS 250 ML 500 MG/250 ML BAG 250 MG IVPB (20:53)
[2023-06-18] MEDS: THIAMINE HCL 200 MG/2 ML VIAL 100 MG IV PUSH (20:53)
[2023-06-18] MEDS: TICAGRELOR 90 MG TABLET PO (20:54)
[2023-06-18] MEDS: traZODone HCL 50 MG TABLET 100 MG PO (20:54)
[2023-06-19] VITALS (8 sets, daily range): BP systolic 102–119; BP diastolic 64–89; PULSE 87–100; RESP 14–24; TEMP 36.4–36.6; O2SAT 94–96
[2023-06-19] MEDS: ALBUTEROL SULFATE NEB 2.5 MG/3 ML INH INHALATION (01:53)
[2023-06-19] MEDS: IPRATROPIUM BR 0.02% INH SOLN 0.5 MG/2.5 ML VIAL INHALATION (01:54)
[2023-06-19 04:48] LABS: Hematocrit 36.6 % (42.0-52.0); Hemoglobin 12.4 g/dL (14.0-18.0); Mean Corpuscular HGB Conc 33.9 g/dl (32-36); Mean Corpuscular Hemoglobin 32.7 pg (26-34); Mean Corpuscular Volume 96.6 fl (80-100); Mean Platelet Volume 9.1 fl (7.4-10.4); Platelet Count Result 194 k/mm3 (150-375); Red Blood Count 3.79 M/mm3 (4.6-6.20); Red Cell Distribution Width 12.5 % (11.5-14.5); White Blood Count 8.9 K/mm3 (4.5-10.0)
[2023-06-19 04:59] LABS: Alanine Aminotransferase 36 U/L (6-50); Albumin Level 3.2 g/dL (3.5-5.1); Alkaline Phosphatase 85 U/L (38-126); Anion Gap 9 mmol/L (8-16); Aspartate Amino Transferase 79 U/L (17-59); Bilirubin,Total 0.7 mg/dL (0.2-1.3); Blood Urea Nitrogen 8 mg/dL (9-20); Calcium 8.2 mg/dL (8.4-10.2); Carbon Dioxide 21 mmol/L (22-30); Chloride 102 mmol/L (98-107); Estimated CRCL calculation 102 ml/min; Estimated Glomerular Filt Rate > 60; Glucose 82 mg/dL (65-110); Magnesium 1.9 mg/dL (1.6-2.3); Potassium 3.8 mmol/L (3.4-5.0); Sodium 132 mmol/L (137-145)
[2023-06-19] MEDS: FLUTICASONE/UMECLIDIN/VILANTER 100-62.5-25 MCG ELLIPTA 1 PUFF INHALATION (08:19)
[2023-06-19] MEDS: TICAGRELOR 90 MG TABLET PO (08:39)
[2023-06-19] MEDS: PANTOPRAZOLE 40 MG TABLET PO (08:39)
[2023-06-19] MEDS: ASPIRIN 81 MG CHEWABLE TABLET PO (08:39)
[2023-06-19] MEDS: CHOLECALCIFEROL 1,000 UNITS TABLET 5000 UNITS PO (08:40)
[2023-06-19] MEDS: FOLIC ACID 1 MG TABLET PO (08:40)
[2023-06-19] MEDS: THIAMINE HCL 200 MG/2 ML VIAL 100 MG IV PUSH (08:41)
[2023-06-19] MEDS: SIMVASTATIN 20 MG TABLET PO (09:07)
--- NOTE | 2023-06-19 10:34 | PM.PNCARD ---
Progress Note: A&P Assessment and Plan (1) Non-STEMI (non-ST elevated myocardial infarction): Code(s): I21.4 - Non-ST elevation (NSTEMI) myocardial infarction Status: Acute Assessment and Plan: Patient underwent PCI to the LM and LAD on 06/[address] Ruvalcaba (Left main, proximal LAD, and mid LAD; total of 3 stents). Continue ASA indefinitely. Brilinta 90mg BID for at least 1 year. High-intensity statin. Start beta debra. I had a lengthy discussion with the patient regarding importance of being compliant with DAPT and the risks of stent thrombosis, including , if non-compliant. Patient expressed understanding. (2) Ischemic cardiomyopathy: Code(s): I25.5 - Ischemic cardiomyopathy Status: Acute Assessment and Plan: Echocardiogram 06/18 shows LVEF 30-35%, akinesis of the apex with relative sparing of bases. This is a new diagnosis of cardiomyopathy for the patient, in setting of NSTEMI. Will start low dose Toprol. His pressures are soft at this time, will hold off on ARNI/ACEi/ARB for now. Uptitrate GDMT as tolerated by hemodynamics. (3) Alcohol dependence: Code(s): F10.20 - Alcohol dependence, uncomplicated Status: Acute Assessment and Plan: Discussed cessation. Plan Recommendations and Plan discussed with Beef Splitter. Subjective Date/time seen: 06/19/23 10:34 Interval history: Reason for visit: NSTEMI HPI: Patient is a 63-year-old male with past medical history significant for remote tobacco abuse, COPD, alcohol dependence, hyperlipidemia, GERD, osteoarthritis who presented emergency department with complaints of progressive upper back pain for approximately 5 days minimally responsive to Tylenol, tramadol, and Flexeril.? He states he only thing that really helped him was drinking a small bottle of rum.? Day prior to presentation he then developed significant chest pain with associated progressive shortness of breath.? Back pain was clearly worsen with position and activity.? He has never had severe back pain such as this in his chronic pain is generally in the lower back.? He denies orthopnea, PND or lower extremity edema.? He was noted to CT chest obtained in May revealed right upper lobe infiltrate and shortly after he was diagnosed with COVID and had associated symptoms for 2 weeks [address].? CT angiogram of the chest revealed multifocal pneumonia but no pulmonary embolism.? Initial troponin was mildly elevated at 0.534 subsequently 2.820, 4.410, 9.840.? Chest pain at presentation was resolved with sublingual nitroglycerin and has not returned a nitroglycerin paste.? Of note, patient presented to the ER at [place] 06/14/2023 with complaints of back pain which radiated to his chest waking him from sleep prompting him to present to the ER.? Troponin at that time was negative and he was discharged home on tizanidine and naproxen.? No significant ECG changes side from tachycardia presentation compared to 06/14/2023.? He denies any prior known history of CAD, myocardial infarction, CHF or arrhythmias.? Denies history of DVT/PE, stroke or bleeding complications.? He was continued on IV antibiotic treatment with azithromycin and ceftriaxone for possible pneumonia and heparin drip and aspirin for NSTEMI.? Aside from upper back pain he has no other complaints of chest pain or shortness of breath at present. Date of service 06/19: No chest pain, back pain. Feeling well this morning. Patient states he wants to go home today and will leave AMA this afternoon. Review of Systems Review of Systems: All systems reviewed & are unremarkable except as noted in HPI and below (HPI) Exam Const: General: comfortable and no acute distress HENMT: Mouth: Yes moist mucous membranes Eyes: General: appearance normal, both eyes and all related structures Sclera: sclerae normal Neck: Neck: supple Resp: Effort & Inspection: normal respiratory effort Auscultation: clear to auscultation marco
--- NOTE | 2023-06-19 11:20 | PC.NURSE ---
Pt remains a and o times 4, signed AMA sheet, stated he has a friend coming to pick him up, iv's dc'd, tele. bp cuff and pulse ox check removed, pt oob getting dressed at this time
--- NOTE | 2023-06-19 11:27 | PC.NURSE ---
pt signed AMA sheet, alert and oriented x's 4, removed iv's, telemetry off, bp cuff and pulse ox off, pt up changing clothes
--- NOTE | 2023-06-19 11:54 | WPDCNINT ---
Assessment and Plan Assessment and plan (1) Non-STEMI (non-ST elevated myocardial infarction): Code(s): I21.4 - Non-ST elevation (NSTEMI) myocardial infarction Status: Acute Assessment and Plan: Present patient is a 06/28/2022, diagnosed with NSTEMI, status post PTCA/PCI with stent x3 to left main, proximal LAD and mid LAD -continue aspirin, Brilinta, high-intensity statin and beta-debra -cardiology following the patient closely (2) Ischemic cardiomyopathy: Code(s): I25.5 - Ischemic cardiomyopathy Status: Acute Assessment and Plan: Echocardiogram 06/18/2023 showed EF of 35% achiness of the apex with relative sparing of bases. -new diagnosis of cardiomyopathy likely related to ischemia/NSTEMI -cardiology will be following the patient (3) COPD with chronic bronchitis and emphysema: Code(s): J44.89 - Other specified chronic obstructive pulmonary disease; J43.9 - Emphysema, unspecified Status: Acute Assessment and Plan: Continue bronchodilators (4) Hypercholesteremia: Code(s): E78.00 - Pure hypercholesterolemia, unspecified Status: Acute Assessment and Plan: Continue high-intensity statin Plan DVT prophylaxis: Status post cardiac care Stress ulcer prophylaxis: Protonix Nutrition: Heart healthy that Code Status: Full code Critical Care Time Spent: 44 minutes Due to a high probability of clinically significant, life threatening deterioration, the patient required my highest level of preparedness to intervene emergently and I personally spent this critical care time directly and personally managing the patient. This critical care time included obtaining a history; examining the patient; pulse oximetry; ordering and review of studies; arranging urgent treatment with development of a management plan; evaluation of patient's response to treatment; frequent reassessment; and discussions with other providers. It was exclusive of separately billable procedures and treating other patients and teaching time. Please see Assessment and Plan section and the rest of the note for further information on patient assessment and treatment This dictation may have been done utilizing a voice recognition system. Attempts have been made to correct errors. However, there may be uncorrected grammatical, spelling, and recognitions errors present. Labor Delivery Rn Consult Note Consult date: 06/19/23 Reason for consult: NSTEMI status post cardiac catheterization with PTCA/PCI with stent x3 to left main, proximal LAD and mid LAD. HPI: Edgar Laguna is a 63 year old with past medical history of tobacco abuse, COPD, alcohol dependence, hyperlipidemia, gastroesophageal reflux disease, osteoarthritis presented the ED on 06/18/2023 with complains of chest pain which was started as upper back pain for about 4-5 days prior to admission and the day prior to admission he developed chest pain associated shortness of breath, radiating to the left arm and jaw. Chest chest pain resolved with sublingual nitroglycerin and nitroglycerin paste. Troponins were elevated and peaked at 9.84. 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 Patient was started on aspirin, Brilinta, high-dose statin and beta-debra patient was transferred to the ICU for further management Patient seen and examined the ICU this morning, is awake, alert, oriented x3, nonfocal. Denies any chest pain, shortness of breath, abdominal pain, nausea vomiting at this time. Patient states he was to go home replied that the marble worker will decide any await for the Cardiology to come by. He was agreeable. Hemodynamically stable, afebrile, adequate urine output Review of Systems Review of Systems: All systems reviewed & are unremarkable except as noted in HPI and below PMFSH Past Medical History Medical History (Reviewed 06/18/23 @ 14:23 by Beth Platt
--- NOTE | 2023-06-19 12:09 | PM.DS ---
DS: Admitting Diagnosis Discharge Date 06/19/23 Admitting Diagnosis Upper back pain DS: Discharge Diagnosis Discharge Diagnosis (1) Non-STEMI (non-ST elevated myocardial infarction): Code(s): I21.4 - Non-ST elevation (NSTEMI) myocardial infarction Status: Acute (2) Shock: Code(s): R57.9 - Shock, unspecified Status: Acute (3) COPD with chronic bronchitis and emphysema: Code(s): J44.89 - Other specified chronic obstructive pulmonary disease; J43.9 - Emphysema, unspecified Status: Acute (4) Heavy alcohol use: Code(s): F10.90 - Alcohol use, unspecified, uncomplicated Status: Acute (5) Back pain: Qualifiers: Back pain laterality: midline Back pain location: thoracic back pain Chronicity: acute Qualified Code(s): M54.6 - Pain in thoracic spine Code(s): M54.9 - Dorsalgia, unspecified Status: Acute DS: Summary Hospital Course Reason for hospitalization: 63yo male with osteoporosis, COPD, hypertension, GERD and insomnia who presented to the ER via private vehicle due to mid upper back pain.?Please see H&P for details. Hospital Course: Patient presents with back pain probably anginal equivalent. He was hypoxic at 91% on 3L on admission. EKG showing sinus tach, possible LAE, iRBBB and borderline T wave changes in the high lateral leads. CXR showing?congestive changes,? pulmonary edema, Bilateral pulmonary infiltrates (edema or PNA or aspiration) and COPD. TA chest showing?multifocal pneumonia of the lower lobes and right middle lobe, no PE and moderate emphysema. Troponin elevated on admission and climbed to 9.8. He received nebs in ED. Hypoxia resolved. Abx started. Echo showing EF 30-35% with akinesis of the apex and Grade I diastolic dysfunction. Cardiology consulted and patient went for [facility] 06/18/23 showin- left coronary artery is a large artery that divides into large LAD, large circumflex artery.? Left main is the lesion of about 40% however later on became unstable and his during the intervention. 2- left anterior descending artery is a large artery that runs and wraps around the apex. has a proximal lesion about 90% mid lesion of about 90% also. 3- leftcircumflex artery is a large artery? and codominant.? Ostial and proximal 50%. 4- right coronary artery is ? medium in size, ostial and proximal 50%, mid 50% 5- LVEDP was 10mmhg and no gradient across aortic valve. 6- opening arterial pressure was 94/50 and closing pressure was 106/60 . 7- right femoral artery angiogram shows no significant disease in the right common femoral artery. PCI and PARMINDER to Mid-LAD; a 2nd stent proximal LAD overlapping the mid LAD and 3rd stent to cover the ostial left main into the proximal LAD in overlapping fashion. Medical management with ASA, Brilinta, Zocor. No Toprol due to HoTN. During the heart cath, patient was HoTN requiring a couple dosages of phenylephrine but ultimately needed to be started on Levophed due to low blood pressure. BP improved. He was moved to the ICU after the procedure. Able to wean Levophed off. Patient reports he drinks a little over a bottle of wine 5 days a week.? He denies history of alcohol withdrawal.? Patient was educated about the benefits abstaining from alcohol use. Thiaminie and Folate added. Patient was having back pain that was reproducible to palpation. Consider also that it is anginal equivalent. Thoracic xray showing mild-mod thoracic kyphosis with multiple chronic mild compression fractures which probably the etiology of his back pain. The day after the [facility], patient felt much better and decided to sign himself out against medical advise. He was alert and oriented. He voiced understanding of the risks of leaving the hospital AMA including but not limited to heart failure, recurrent heart attack and/or sudden cardiac . Patient voices understanding of this. Also explained in detail about the need to be compliant with the aspirin and Brilinta. R
[2023-06-20 21:54] LABS: Pneumococcal Antigen Urine Not Detected (Not Detected)
[2023-06-21 01:47] LABS: Legionella pneumophila Ag Ur Not Detected (Not Detected)
--- NOTE | 2023-07-03 14:06 | IVDEFINITY ---
Prior to administration of IV Definity the patient was educated on the risks and benefits of the imaging enhancing agent including potential adverse side effects. The patient verbalized understanding. Allergies were verified. No exclusion criteria were identified and at least one of the following inclusion criteria were met: 1) physician request, 2) patient technically difficult to image (per the [place] [employer] Echocardiography guidelines of two or more segments not discernable within the apical view), or 3) questionable left ventricular function. ?
== END 2023-06-19 12:03 | disposition left against medical advice (07) | DRG 174 ==
LOC: ANHED 13:42 → ANHIMU 21:15 → ANHICU 06-18 14:41
PROVIDERS: Emergency Medicine; Internal Medicine; Internal Medicine Cardiovascular Disease; Admitting Provider Internal Medicine; Emergency Provider Emergency Medicine; PCP Nurse Practitioner Family; Visit Provider Internal Medicine
PROC: 4A023N7 Measurement of Cardiac Sampling and Pressure, Left Heart, Percutaneous Approach (ICD-10-PCS; CPT 93452; principal; 2023-06-18 13:00)
PROC: 027036Z Dilation of Coronary Artery, One Artery with Three Drug-eluting Intraluminal Devices, Percutaneous Approach (ICD-10-PCS; 2023-06-18 13:00)
PROC: 027036Z Dilation of Coronary Artery, One Artery with Three Drug-eluting Intraluminal Devices, Percutaneous Approach (ICD-10-PCS; 2023-06-18 13:00)
PROC: 027036Z Dilation of Coronary Artery, One Artery with Three Drug-eluting Intraluminal Devices, Percutaneous Approach (ICD-10-PCS; CPT 92933; 2023-06-18 13:00)
PROC: 027036Z Dilation of Coronary Artery, One Artery with Three Drug-eluting Intraluminal Devices, Percutaneous Approach (ICD-10-PCS; 2023-06-18 13:00)
DX: I21.4 Non-ST elevation (NSTEMI) myocardial infarction (principal); I25.10 Atherosclerotic heart disease of native coronary artery without angina pectoris; I95.89 Other hypotension; J18.9 Pneumonia, unspecified organism; E78.00 Pure hypercholesterolemia, unspecified; I25.5 Ischemic cardiomyopathy; J44.89 Other specified chronic obstructive pulmonary disease; F10.20 Alcohol dependence, uncomplicated; Z86.16 Personal history of COVID-19; Z87.891 Personal history of nicotine dependence; M80.08XD Age-related osteoporosis with current pathological fracture, vertebra(e), subsequent encounter for fracture with routine healing
CPT/HCPCS: 36415; 71046; 71275; 80053; 80061; 80307; 83605; 83690; 83735; 84484; 85025; 85027; 85380; 85652; 85730; 86140; 87040; 87449; 87637; 87899; 92978; 93005; 93458; 94640; 96365; 96374; 96375; 99285; A9270; C1725; C1753; C1760; C1769; C1874; C1887; C1894; C8929; C9600; G0269; G0378; G0379; J0456; J0583; J0696; J1327; J1644; J2250; J2270; J2405; J3010; J3360; J3411; J7030; J7040; J7060; J7120; Q9957; Q9967

== ENCOUNTER 2023-06-19 15:00 | Observation (INO) | payer OTHER, SELFPAY ==
[2023-06-19] VITALS (18 sets, daily range): BP systolic 117–149; BP diastolic 72–93; PULSE 88–105; RESP 14–26; TEMP 36.1–36.3; O2SAT 94–98; BMI 23.2
--- NOTE | ~2023-06-19 | XR_ITS ---
EXAMINATION: XR chest 2V DATE: 06/19/2023 16:14 INDICATION: Shortness of breath. Chest pain. Palpitations. TECHNIQUE: Frontal and lateral views of the chest were obtained. COMPARISON: Chest 2 views 06/17/23, chest CT 06/17/2023 FINDINGS: There are lucencies in the lungs, consistent with emphysema. There is interstitial pattern in the inferior lungs, consistent with mild pulmonary edema. No pleural effusion or pneumothorax. The heart size is normal. IMPRESSION: 1. Mild pulmonary edema with interval improvement. 2. Emphysema. Reviewed, dictated and finalized at location A. SALES REPRESENTATIVE
--- NOTE | 2023-06-19 15:43 | ED.SOB ---
HPI - SOB/Dyspnea General Chief Complaint: Shortness of Breath/Dyspnea Stated Complaint: SOB Time Seen by Provider: 06/19/23 18:01 Source: patient and old records reviewed Mode of arrival: ambulatory Limitations: no limitations History of Present Illness HPI Narrative: Patient is a 63 y/o male who presents to the ED with c/o dyspnea on exertion. Per records, patient was admitted to the hospital here on Sunday for NSTEMI by elevated troponin, multifocal pneumonia. He underwent cardiac catheterization and had 3 stents placed. Patient left AMA from the hospital around noon today. Was provided with Rx for Plavix and ASA, but states he has not picked these up yet. He was not given any antibiotic prescriptions. Patient states when he attempted to walk into his house from his car he became significantly short of breath, noted that his heart was racing. Worse with any type of exertion. He went to see his primary care doctor and c d stripper and was referred here for further evaluation. Patient also reports a recent cough with red tinged sputum. Denies known fevers. Denies chest pain currently. Related Data Home Medications Medication Instructions Recorded Confirmed omeprazole 20 mg capsule,delayed 20 mg PO DAILY 10/31/21 06/19/23 release alendronate 70 mg tablet 70 mg PO WEEKLY 11/10/22 06/19/23 trazodone 100 mg tablet 100 mg PO HS 11/10/22 06/19/23 albuterol sulfate 90 mcg/actuation 2 puff inhalation Q6H PRN Wheezing 06/17/23 06/19/23 aerosol inhaler cholecalciferol (vitamin D3) 125 125 mcg PO DAILY 06/17/23 06/19/23 mcg (5,000 unit) capsule fluticasone fur. 100 mcg-umeclid 1 inh inhalation QAM 06/17/23 06/19/23 62.5 mcg-vilant 25 mcg inhalat.powder (Trelegy Ellipta) folic acid 1 mg tablet 1 mg PO DAILY 06/17/23 06/19/23 propranolol 10 mg tablet 10 mg PO DAILY 06/17/23 06/19/23 atorvastatin 80 mg tablet 80 mg PO HS 06/19/23 06/19/23 calcium 100 mg capsule 100 mg PO DAILY 06/19/23 06/19/23 Allergies Allergy/AdvReac Type Severity Reaction Status Date / Time No Known Allergies Allergy Verified 01/12/23 12:47 Review of Systems Review of Systems: CONSTITUTIONAL: Denies fever, chills, or sweats. CARDIOVASCULAR: See HPI. RESPIRATORY: See HPI. All systems reviewed & are unremarkable except as noted in HPI and below PMFSH Past Medical History Medical History Anxiety and depression COPD with chronic bronchitis and emphysema Former smoker GERD (gastroesophageal reflux disease) Heavy alcohol use Hypercholesteremia Osteoporosis with prior thoracic compression fractures Surgical History Surgical History History of tonsillectomy Family History Family History Other Unknown family medical history Social History Social History Social History: Patient reports he smoke 1 pack of cigarettes per day but quit smoking in 2019. He occasionally will vape some marijuana. He is single and never been . He does not have any children. He lives alone. 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 Code status: Full code Smoking packs per day: 1 Smoking cigarettes per day: 20.0 Years smoked: 40 Smoking pack-years: 40.00 Smoking status: Former smoker Tobacco type: cigarettes Second hand tobacco smoke exposure: No Smoking end date: 04/15/91 Alcohol intake: current Drinks per week: 4 Alcohol use details: wine Substance use: current Substance use type: marijuana Last use: Sunday Do You Feel Safe in your Home?: Yes Lack of Transportation: No Lack of Food: Never True Current Housing: I Have Housing Concerned About Future Housing: No Difficulty Paying Gas/Electric Bills: No Difficulty Paying for Meds: No Currently Unemployed: N
--- NOTE | 2023-06-19 15:46 | ECG_ITS ---
Measurements Intervals [place] Rate: 98 P: 51 HI: 162 QRS: 75 QRSD: 89 T: 111 QT: 371 QTc: 475 Interpretive Statements SINUS RHYTHM POSSIBLE LEFT ATRIAL ENLARGEMENT INCOMPLETE RIGHT BUNDLE BRANCH BLOCK ANTEROSEPTAL INFARCT, AGE INDETERMINATE T WAVE ABNORMALITY IN ANT/HIGH LAT LEADS- CONSIDER ISCHEMIA BASELINE WANDER- V6 ABNORMAL ECG COMPARED TO ECG 06/17/2023 23:04:39 MYOCARDIAL INFARCT FINDING NOW PRESENT T WAVE ABNORMALITY NOW PRESENT Electronically Signed On 06-19-2023 16:13:17 [employer] SUPERINTENDENT by Zion Freedman D.O.
[2023-06-19 16:08] LABS: Basophils Absolute Auto 0.1 K/mm3 (0.0-0.1); Basophils Percent Auto 0.5 % (0.2-1.2); Eosinophils Absolute Auto 0.2 K/mm3 (0-0.3); Eosinophils Percent Auto 1.7 % (0-4.4); Hematocrit 40.6 % (42.0-52.0); Hemoglobin 14.5 g/dL (14.0-18.0); Immature Granulocyte Absolute 0.04 K/mm3 (0.00-0.031); Immature Granulocyte Percent A 0.4 % (0-0.5); Lymphocytes Absolute Auto 1.27 K/mm3 (0.9-3.2); Mean Corpuscular HGB Conc 35.7 g/dl (32-36); Mean Corpuscular Hemoglobin 33.1 pg (26-34); Mean Corpuscular Volume 92.7 fl (80-100); Mean Platelet Volume 8.4 fl (7.4-10.4); Monocytes Percent Auto 9.2 % (2.6-8.5); Neutrophils Absolute Auto 8.1 K/mm3 (1.3-6.7); Neutrophils Percent Auto 76.2 % (45.5-73.1); Platelet Count Result 218 k/mm3 (150-375); Red Blood Count 4.38 M/mm3 (4.6-6.20); Red Cell Distribution Width 12.3 % (11.5-14.5); White Blood Count 10.6 K/mm3 (4.5-10.0)
[2023-06-19 16:15] LABS: Ethanol < 10 mg/dL (<10)
[2023-06-19 16:18] LABS: Alanine Aminotransferase 40 U/L (6-50); Albumin Level 4.3 g/dL (3.5-5.1); Alkaline Phosphatase 100 U/L (38-126); Anion Gap 8 mmol/L (8-16); Aspartate Amino Transferase 75 U/L (17-59); Bilirubin,Total 0.8 mg/dL (0.2-1.3); Blood Urea Nitrogen 8 mg/dL (9-20); Carbon Dioxide 24 mmol/L (22-30); Chloride 101 mmol/L (98-107); Estimated Glomerular Filt Rate > 60; Glucose 150 mg/dL (65-110); Potassium 3.6 mmol/L (3.4-5.0); Sodium 133 mmol/L (137-145)
[2023-06-19 16:19] LABS: INR 0.9; Prothrombin Time 12.8 Seconds (11.1-14.7)
[2023-06-19 16:20] LABS: Partial Thromboplastin Time 45.6 SECONDS (22.3-36.8)
[2023-06-19 16:33] LABS: NT Pro B Type Natriuretic Pept 3040 pg/mL (19.9-100)
--- NOTE | 2023-06-19 18:12 | ED.SOB ---
HPI - SOB/Dyspnea General Chief Complaint: Shortness of Breath/Dyspnea Stated Complaint: SOB Time Seen by Provider: 06/19/23 18:01 Source: patient and old records reviewed Mode of arrival: ambulatory Limitations: no limitations History of Present Illness HPI Narrative: Patient had coronary stents yesterday, sign AMA and ICU today, he is telling me because he would like to have a shower and cannot have it in the hospital. At home patient noticed that he gets short of breath with any slight activity even get out of bed to the bathroom. He denies any pain, fever, chills, nausea, vomiting. CURRENTLY PATIENT FEELING OKAY, DENYING ANY SYMPTOM LONG LYING DOWN IN BED WITHOUT ANY ACTIVITIES. Related Data Home Medications Medication Instructions Recorded Confirmed omeprazole 20 mg capsule,delayed 20 mg PO DAILY 10/31/21 06/17/23 release alendronate 70 mg tablet 70 mg PO WEEKLY 11/10/22 06/17/23 trazodone 100 mg tablet 100 mg PO HS 11/10/22 06/17/23 albuterol sulfate 90 mcg/actuation 2 puff inhalation Q6H PRN Wheezing 06/17/23 06/17/23 aerosol inhaler cholecalciferol (vitamin D3) 125 125 mcg PO DAILY 06/17/23 06/17/23 mcg (5,000 unit) capsule fluticasone fur. 100 mcg-umeclid 1 inh inhalation QAM 06/17/23 06/17/23 62.5 mcg-vilant 25 mcg inhalat.powder (Trelegy Ellipta) folic acid 1 mg tablet 1 mg PO DAILY 06/17/23 06/17/23 propranolol 10 mg tablet 10 mg PO DAILY 06/17/23 06/17/23 simvastatin 20 mg tablet 20 mg PO DAILY 06/17/23 06/17/23 Allergies Allergy/AdvReac Type Severity Reaction Status Date / Time No Known Allergies Allergy Verified 01/12/23 12:47 Review of Systems Review of Systems: All systems reviewed & are unremarkable except as noted in HPI and below PMFSH Past Medical History Medical History Anxiety and depression COPD with chronic bronchitis and emphysema Former smoker GERD (gastroesophageal reflux disease) Heavy alcohol use Hypercholesteremia Osteoporosis with prior thoracic compression fractures Surgical History Surgical History History of tonsillectomy Social History Social History Social History: Patient reports he smoke 1 pack of cigarettes per day but quit smoking in 2019. He occasionally will vape some marijuana. He is single and never been . He does not have any children. He lives alone. 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 Code status: Full code Smoking packs per day: 1 Smoking cigarettes per day: 20.0 Years smoked: 40 Smoking pack-years: 40.00 Smoking status: Former smoker Tobacco type: cigarettes Second hand tobacco smoke exposure: No Smoking end date: 04/15/91 Alcohol intake: current Drinks per week: 4 Alcohol use details: wine Substance use: never Substance use type: does not use Do You Feel Safe in your Home?: Yes Lack of Transportation: No Lack of Food: Never True Current Housing: I Have Housing Concerned About Future Housing: No Difficulty Paying Gas/Electric Bills: No Difficulty Paying for Meds: No Currently Unemployed: No Education: High School Diploma/GED Difficulty w/ Childcare or Family Care: No Living arrangements: with family Occupation/Education: unemployed Additional occupation/education comments: 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 Gender identity (if verbalized by the patient): Male Spiritual care concerns: No Exam Narrative: General appearance: Well-developed, well-nourished Skin: Normal color Head: Normocephalic, nontraumatic Eyes: Clear conjunctiva ENT: Oropharynx normal, ears normal, nose normal Neck: Supple, nontender Chest and respiratory: Airway patent, no respiratory distress, no accessory muscle use Heart: Regular rate/rhythm Abdomen: Soft, nontender, no organomegaly, quiet bowel sounds Vascular:
--- NOTE | 2023-06-19 19:37 | PC.NURSE ---
care and report given to REYES Lindsay. all questions answered.
--- NOTE | 2023-06-19 20:20 | PC.NURSE ---
spoke w/ mother Norma w/ pts permission, discussed POC, she is requesting updates be called to her cell at [phone]
--- NOTE | 2023-06-19 20:35 | ADMGEN ---
This patient, Edgar Laguna, was admitted to IMU Room 214-01. Patient/family oriented to hospital policies and general routines including ID bracelet, bed and alarms, visiting hours, pain management, procedures, bathroom and other care routines, personal items, smoking policy, room service/diet, and visiting hours. Information on how to activate the Rapid Response Team has been discussed. Patient/Family are encouraged to report perceived risks to care and to ask questions if they do not understand what they are told or what they should do.
[2023-06-19 23:45] LABS: Amphetamine Screen Urine Negative (Negative); Barbiturate Screen Urine Negative (Negative); Benzodiazepines Screen Urine Positive (Negative); Cannabinoid Screen Urine Positive (Negative); Cocaine Screen Urine Negative (Negative); Methadone Screen Urine Negative (Negative); Opiate Screen Urine Negative (Negative); Phencyclidine Screen Urine Negative (Negative)
[2023-06-20] VITALS (19 sets, daily range): BP systolic 102–125; BP diastolic 63–85; PULSE 79–92; RESP 20; TEMP 36.1–36.8; O2SAT 94–96
[2023-06-20] MEDS: ASPIRIN 81 MG CHEWABLE TABLET PO (08:53)
[2023-06-20] MEDS: ATORVASTATIN 40 MG TABLET 80 MG PO (10:20)
[2023-06-20] MEDS: TICAGRELOR 90 MG TABLET 180 MG PO (10:20)
--- NOTE | 2023-06-20 10:22 | PM.CNCAR ---
Assessment and Plan Assessment and plan (1) Non-STEMI (non-ST elevated myocardial infarction): Code(s): I21.4 - Non-ST elevation (NSTEMI) myocardial infarction Status: Acute Assessment and Plan: Patient underwent PCI to the LM and LAD on 06/[address] Ruvalcaba (Left main, proximal LAD, and mid LAD; total of 3 stents). Continue ASA 81mg once daily indefinitely. Unfortunately, patient had reported to ER team and admitting team that he had not taken his evening dose of Brilinta, and unfortunately neither the ER team nor the admitting team ordered his Brilinta to be given last night, therefore, he ended up missing the evening dose completely. I will reload with 180mg of Brilinta this morning and continue with Brilinta 90mg BID. Patient cannot miss any doses of his DAPT. Continue high-intensity statin. Continue beta debra. (2) Ischemic cardiomyopathy: Code(s): I25.5 - Ischemic cardiomyopathy Status: Acute Assessment and Plan: Echocardiogram 06/18 shows LVEF 30-35%, akinesis of the apex with relative sparing of bases. This is a new diagnosis of cardiomyopathy for the patient, in setting of NSTEMI. Will give one time dose of IV Lasix given mild pulmonary edema on CXR. Increase Toprol to 50mg once daily. Start low dose Losartan 25mg once daily. If able to tolerate this GDMT, will plan to add Spironolactone 06/21. History of Present Illness History of Present Illness Consult date/time: 06/20/23 10:22 Requesting physician: Josue Hill MD Consult reason: shortness of breath Reason For Visit: POST CORONARY STENT, CHF Narrative: We are consulted for CAD, CHF. This is a 63 year old male with remote tobacco use, COPD, alcohol dependence, hyperlipidemia, GERD, osteoarthritis who was initially admitted to [facility] on 06/18 for NSTEMI. Patient underwent PCI to the LM and LAD on 06/[address] Ruvalcaba (Left main, proximal LAD, and mid LAD; total of 3 stents).?Echocardiogram 06/18 shows LVEF 30-35%, akinesis of the apex with relative sparing of bases. Patient left AMA on 06/19. Patient return to the ED later that night for exertional shortness of breath. Troponins are flat at 5.840, 5.510, 5.580, which are downtrending from initial NSTEMI. BNP elevated at 3040. CXR showed mild pulmonary edema. He was admitted for further management. Unfortunately, patient had reported to ER team and admitting team that he had not taken his evening dose of Brilinta, and unfortunately neither the ER team nor the admitting team ordered his Brilinta to be given last night, therefore, he ended up missing the evening dose completely. Review of Systems Review of Systems: All systems reviewed & are unremarkable except as noted in HPI and below (HPI) [facility] Past Medical History Medical History Anxiety and depression COPD with chronic bronchitis and emphysema Former smoker GERD (gastroesophageal reflux disease) Heavy alcohol use Hypercholesteremia Osteoporosis with prior thoracic compression fractures Surgical History Surgical History History of tonsillectomy Family History Family History Other Unknown family medical history Social History Social History Social History: Patient reports he smoke 1 pack of cigarettes per day but quit smoking in 2019. He occasionally will vape some marijuana. He is single and never been . He does not have any children. He lives alone. 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 Code status: Full code Smoking packs per day: 1 Smoking cigarettes per day: 20.0 Years smoked: 40 Smoking pack-years: 40.00 Smoking status: Former smoker Tobacco type: cigarettes Second hand tobacco smoke exposure: No Smoking end date: 04/15/91 Alcohol intake: fred
[2023-06-20] MEDS: METOPROLOL SUCCINATE EXT REL 50 MG TABCR PO (10:31)
[2023-06-20] MEDS: FUROSEMIDE INJ 40 MG/4 ML VIAL 20 MG IV PUSH (10:31)
[2023-06-20] MEDS: LOSARTAN POTASSIUM 25 MG TABLET PO (10:31)
--- NOTE | 2023-06-20 13:51 | PM.IMHP ---
H&P: HPI History of Present Illness Date/Time: 06/20/23 13:51 Chief Complaint: SOB Narrative: 63-year-old male with past medical history of osteoporosis, COPD, hypertension, GERD and insomnia who presented to the ER via private vehicle due to mid upper back pain.? Pt had recent NSTEMI, PCI and PARMINDER to Mid-LAD; a 2nd stent proximal LAD overlapping the mid LAD and 3rd stent to cover the ostial left main into the proximal LAD on 06/18 Pt felt AMA from ICU. Back again with SOB likely CHF exacerbation. Pt seen by cardiology medications are restarted. IV lasix also given in ED can transition to oral lasix Pt has extensive history of alcoholism ex smoker heavy drinker 1 bottle of wine a day Pt has history of emphysema sees pulmology Echo shows - ?LVEF 30-35% Review of Systems Review of Systems: SOB ongoing worse when he ambulates all other systems are negative apart from those documented in HPI PMFSH Past Medical History Medical History Anxiety and depression COPD with chronic bronchitis and emphysema Former smoker GERD (gastroesophageal reflux disease) Heavy alcohol use Hypercholesteremia Osteoporosis with prior thoracic compression fractures Surgical History Surgical History History of tonsillectomy Family History Family History Other Unknown family medical history Social History Social History Social History: Patient reports he smoke 1 pack of cigarettes per day but quit smoking in 2019. He occasionally will vape some marijuana. He is single and never been . He does not have any children. He lives alone. 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 Code status: Full code Smoking packs per day: 1 Smoking cigarettes per day: 20.0 Years smoked: 40 Smoking pack-years: 40.00 Smoking status: Former smoker Tobacco type: cigarettes Second hand tobacco smoke exposure: No Smoking end date: 04/15/91 Alcohol intake: current Drinks per week: 4 Alcohol use details: wine Substance use: current Substance use type: marijuana Last use: Sunday Do You Feel Safe in your Home?: Yes Lack of Transportation: No Lack of Food: Never True Current Housing: I Have Housing Concerned About Future Housing: No Difficulty Paying Gas/Electric Bills: No Difficulty Paying for Meds: No Currently Unemployed: No Education: Decline to Answer Difficulty w/ Childcare or Family Care: No Living arrangements: with family Occupation/Education: unemployed Additional occupation/education comments: 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 Gender identity (if verbalized by the patient): Male Spiritual care concerns: No Meds Home Medications and Allergies Home Medications Medication Instructions Recorded Confirmed Type omeprazole 20 mg capsule,delayed 20 mg PO DAILY 10/31/21 06/19/23 History release alendronate 70 mg tablet 70 mg PO WEEKLY 11/10/22 06/19/23 History trazodone 100 mg tablet 100 mg PO HS 11/10/22 06/19/23 History naproxen 500 mg tablet 500 mg PO BID #14 tabs 06/14/23 06/19/23 Rx tizanidine 2 mg capsule 2 mg PO Q8H PRN muscle spasticity 06/14/23 06/19/23 Rx #14 caps albuterol sulfate 90 mcg/actuation 2 puff inhalation Q6H PRN Wheezing 06/17/23 06/19/23 History aerosol inhaler cholecalciferol (vitamin D3) 125 125 mcg PO DAILY 06/17/23 06/19/23 History mcg (5,000 unit) capsule fluticasone fur. 100 mcg-umeclid 1 inh inhalation QAM 06/17/23 06/19/23 History 62.5 mcg-vilant 25 mcg inhalat.powder (Trelegy Ellipta) folic acid 1 mg tablet 1 mg PO DAILY 06/17/23 06/19/23 History propranolol 10 mg tablet 10 mg PO DAILY 06/17/23 06/19/23 History aspirin 81 mg tablet,delayed 81 mg PO DAILY@0800 #90 tabs 06/19/23 06/19/23
--- NOTE | 2023-06-20 14:16 | PC.NURSE ---
Notified Dr. López of duplicated Cardiology medication orders. Cardiology had increased Metoprolol to 50mg daily and Dr. López had resumed home medication dose of 25mg PO Metoprolol. New order to changed medication to Cardiology recommendations.
[2023-06-20] MEDS: TICAGRELOR 90 MG TABLET PO (21:05)
[2023-06-20] MEDS: traZODone HCL 50 MG TABLET 100 MG PO (21:05)
[2023-06-21] VITALS (12 sets, daily range): BP systolic 108–113; BP diastolic 68–70; PULSE 71–95; RESP 18–20; TEMP 36.2–36.5; O2SAT 94–96
[2023-06-21] MEDS: FLUTICASONE/UMECLIDIN/VILANTER 100-62.5-25 MCG ELLIPTA 1 PUFF INHALATION (07:33)
[2023-06-21] MEDS: ATORVASTATIN 40 MG TABLET 80 MG PO (08:37)
[2023-06-21] MEDS: METOPROLOL SUCCINATE EXT REL 50 MG TABCR PO (08:37)
[2023-06-21] MEDS: TICAGRELOR 90 MG TABLET PO (08:37)
[2023-06-21] MEDS: FUROSEMIDE 20 MG TABLET PO (08:37)
[2023-06-21] MEDS: ASPIRIN 81 MG ENTERIC TABLET PO (08:37)
[2023-06-21] MEDS: LOSARTAN POTASSIUM 25 MG TABLET PO (08:37)
[2023-06-21] MEDS: PANTOPRAZOLE 40 MG TABLET PO (08:37)
[2023-06-21] MEDS: FOLIC ACID 1 MG TABLET PO (08:38)
--- NOTE | 2023-06-21 09:22 | PM.PNCARD ---
Progress Note: A&P Assessment and Plan (1) Non-STEMI (non-ST elevated myocardial infarction): Code(s): I21.4 - Non-ST elevation (NSTEMI) myocardial infarction Status: Acute Assessment and Plan: Patient underwent PCI to the LM and LAD on 06/[address] Ruvalcaba (Left main, proximal LAD, and mid LAD; total of 3 stents). Continue ASA 81mg once daily indefinitely. Continue Brilinta 90mg BID for at least 1 year. Continue high-intensity statin. Continue beta debra. (2) Ischemic cardiomyopathy: Code(s): I25.5 - Ischemic cardiomyopathy Status: Acute Assessment and Plan: Echocardiogram 06/18 shows LVEF 30-35%, akinesis of the apex with relative sparing of bases. This is a new diagnosis of cardiomyopathy for the patient, in setting of NSTEMI. Started Losartan 25mg once daily, continue. Increased his Toprol to 50mg once daily, continue. IV Lasix switched to 20mg PO daily, continue. Further GDMT optimization can be done as outpatient. Plan Patient can be discharged home from a cardiology standpoint. Will arrange follow up in our office. Recommendations and plan discussed with Hospitalist. Subjective Date/time seen: 06/21/23 09:22 Interval history: Reason for visit: Recent NSTEMI, CHF HPI: We are consulted for CAD, CHF. This is a 63 year old male with remote tobacco use, COPD, alcohol dependence, hyperlipidemia, GERD, osteoarthritis who was initially admitted to [facility] on 06/18 for NSTEMI. Patient underwent PCI to the LM and LAD on 06/[address] Ruvalcaba (Left main, proximal LAD, and mid LAD; total of 3 stents).?Echocardiogram 06/18 shows LVEF 30-35%, akinesis of the apex with relative sparing of bases. Patient left AMA on 06/19. Patient return to the ED later that night for exertional shortness of breath. Troponins are flat at 5.840, 5.510, 5.580, which are downtrending from initial NSTEMI. BNP elevated at 3040. CXR showed mild pulmonary edema. He was admitted for further management. Unfortunately, patient had reported to ER team and admitting team that he had not taken his evening dose of Brilinta, and unfortunately neither the ER team nor the admitting team ordered his Brilinta to be given last night, therefore, he ended up missing the evening dose completely. Date of service 06/21: Feeling well this morning. Exam Const: General: comfortable and no acute distress Eyes: General: appearance normal, both eyes and all related structures Sclera: sclerae normal Resp: Effort & Inspection: normal respiratory effort Cardio: Rate: regular rate Rhythm: regular rhythm Skin: General skin exam: normal color Neuro: Speech: normal speech Psych: Mental Status: mental status grossly normal Affect: normal affect Objective Data Vital Signs Vital Signs: Vital Signs - 24 hr 06/20/23 10:00 06/20/23 10:31 06/20/23 12:05 Temperature 36.6 C Pulse Rate 90 87 84 Respiratory Rate 20 Blood Pressure 125/78 Pulse Oximetry 96 Oxygen Delivery 06/20/23 12:00 06/20/23 12:00 06/20/23 14:00 Temperature Pulse Rate 82 79 Respiratory Rate Blood Pressure Pulse Oximetry 96 Oxygen Delivery Room Air 06/20/23 15:56 06/20/23 16:00 06/20/23 16:00 Temperature 36.8 C Pulse Rate 86 81 Respiratory Rate 20 Blood Pressure 107/63 Pulse Oximetry 95 95 Oxygen Delivery Room Air 06/20/23 18:00 06/20/23 19:50 06/20/23 20:00 Temperature 36.4 C Pulse Rate 88 86 Respiratory Rate 20 Blood Pressure 111/75 Pulse Oximetry 96 Oxygen Delivery Room Air 06/20/23 23:53 06/20/23 20:00 06/20/23 22:00 Temperature 36.6 C Pulse Rate 81 86 83 Respiratory Rate 20 Blood Pressure 102/68 Pulse Oximetry 94 Oxygen Delivery 06/21/23 00:00 06/21/23 00:00 06/21/23 02:00 Temperature Pulse Rate 85 77 Respiratory Rate Blood Pressure Pulse Oximetry Oxygen Delivery Room Air 06/21/23 04:00 06/21/23 04:50 06/21/23 04:00 Temperature 36.4 C Pulse
--- NOTE | 2023-06-21 11:40 | PM.DS ---
DS: Admitting Diagnosis Discharge Date 06/21/2023 Admitting Diagnosis SOB DS: Discharge Diagnosis Discharge Diagnosis (1) Status post coronary artery stent placement: Code(s): Z95.5 - Presence of coronary angioplasty implant and graft Status: Acute Assessment and Plan: Recent stent placement Noted Pt left AMA rom ICU Continue cardiac medications compliance to medications important pt is sp recent heart cath (2) CHF (congestive heart failure): Code(s): I50.9 - Heart failure, unspecified Status: Acute Assessment and Plan: continue iv lasix cautiously EF is 30-35% pt to ambulate in room PT/ OR ordered (3) Ischemic cardiomyopathy: Code(s): I25.5 - Ischemic cardiomyopathy Status: Acute Assessment and Plan: sp NStemi history of alcholism and smoking in the past EF is ?LVEF 30-35% pt given lasix iv in ED can transition to oral lasix (4) Alcohol dependence: Code(s): F10.20 - Alcohol dependence, uncomplicated Status: Acute Assessment and Plan: CIWA protocol Ativan 1 mg iv tid prn agitation (5) Hypercholesteremia: Code(s): E78.00 - Pure hypercholesterolemia, unspecified Status: Acute Assessment and Plan: Continue statins in hospital high intensity statins ordered (6) Former smoker: Code(s): Z87.891 - Personal history of nicotine dependence Status: Acute Assessment and Plan: Pt refuses nicotine patch states he is not smoking any more (7) COPD with chronic bronchitis and emphysema: Code(s): J44.89 - Other specified chronic obstructive pulmonary disease; J43.9 - Emphysema, unspecified Status: Acute Assessment and Plan: H/o of COpd continue inhalers Plan DVT prop: pt is on Brilinta order SCD DS: Summary Hospital Course Hospital Course: 63-year-old male with past medical history of osteoporosis, COPD, hypertension, GERD and insomnia who presented to the ER via private vehicle due to mid upper back pain.? Pt had recent NSTEMI, PCI and PARMINDER to Mid-LAD; a 2nd stent proximal LAD overlapping the mid LAD and 3rd stent to cover the ostial left main into the proximal LAD on 06/18 Pt felt AMA from ICU. Back again with SOB likely CHF exacerbation. Pt seen by cardiology medications are restarted. IV lasix also given in ED can transition to oral lasix Pt has extensive history of alcoholism ex smoker heavy drinker 1 bottle of wine a day Pt has history of emphysema Echo shows - ?LVEF 30-35% Pt seen by cardiology medications adjusted on DC pt strongly advised to take his medications follow up with cardiology and stop or quit drinking alcholol Time Spent with Patient Time attestation: Total time spent providing and/or coordinating discharge services:38 minutes on day of DC Exam Const: Other: appears older than stated age, thin body habitus HENMT: Other: mucous membranes are tacky, no oral pharyngeal erythema, pupils are equal and reactive Eyes: Other: no scleral icterus, no conjunctival pallor Neck: Other: mild JVD, supple Resp: Other: decreased breath sounds bilaterally, with crackles and wheeze Cardio: Other: regular rate, regular rhythm, 2+ bilateral radial pedal pulses GI: Other: soft, nontender, nondistended, positive bowel sounds Skin: Other: no jaundice, tanned Neuro: Other: alert oriented x4, speech is clear, no facial asymmetry, no localizing neurologic deficits noted on limited exam Extrem: Other: no clubbing, cyanosis or edema, moves all extremities equally Psych: Other: irritable but cooperative, poor insight Discharge Plan Discharge Attending physician on discharge: Susan López Consulting providers: Aria Israel; Shahid Collins; Zion Freedman; Julián Jeff V. Discharging Clinician: Susan López Anticipated Discharge Date/Time: 06/21/23 11
== END 2023-06-21 12:58 | disposition home or self-care (01) ==
LOC: ANHED 18:41 → ANHIMU 19:47
PROVIDERS: Physician Assistant; Admitting Provider Family Medicine; Emergency Provider Emergency Medicine; PCP Nurse Practitioner Family; Visit Provider Family Medicine
DX: I25.10 Atherosclerotic heart disease of native coronary artery without angina pectoris (principal); Z95.5 Presence of coronary angioplasty implant and graft; G47.00 Insomnia, unspecified; I11.0 Hypertensive heart disease with heart failure; I50.9 Heart failure, unspecified; I21.4 Non-ST elevation (NSTEMI) myocardial infarction; I25.5 Ischemic cardiomyopathy; J44.89 Other specified chronic obstructive pulmonary disease; J43.9 Emphysema, unspecified; F41.9 Anxiety disorder, unspecified; F32.A Depression, unspecified; R94.31 Abnormal electrocardiogram [ECG] [EKG]; K21.9 Gastro-esophageal reflux disease without esophagitis; E78.00 Pure hypercholesterolemia, unspecified; M81.0 Age-related osteoporosis without current pathological fracture; Z87.891 Personal history of nicotine dependence; F10.90 Alcohol use, unspecified, uncomplicated; F12.90 Cannabis use, unspecified, uncomplicated; Z79.1 Long term (current) use of non-steroidal anti-inflammatories (NSAID); Z79.02 Long term (current) use of antithrombotics/antiplatelets; Z79.51 Long term (current) use of inhaled steroids; Z79.899 Other long term (current) drug therapy
CPT/HCPCS: 36415; 71046; 80053; 80307; 83880; 84484; 85025; 85610; 85730; 93005; 94640; 96374; 99285; A9270; G0378; G0379; J1940

== ENCOUNTER 2023-08-20 14:28 | Outpatient (CLI) | payer OTHER, SELFPAY ==
--- NOTE | 2023-08-20 14:45 | ECHO_ITS ---
Patient Info Name: Edgar Laguna Age: 63 years : 1960 Gender: Male Ht: 71 in Wt: 169 lbs BSA: 1.96 m2 HR: 67 bpm BP: 124 / 75 mmHg Technical Quality: Fair Exam Date: 08/20/2023 3:05 PM Exam Location: Echo Lab Patient Status: Outpatient Admit Date: 08/20/2023 Staff Ordering Physician: Zion Freedman DO Specialist Field Engineer: Latosha Nur RCS Attending Provider: Zion Freedman DO Referring Physician: Tano MOSER; Exam Type: CA echo doppler color flow Study Info Indications - ISCHEMIC CARDIOMYOPATHY Complete two-dimensional, color flow and Doppler transthoracic echocardiogram is performed. Summary 1. Complete two-dimensional, color flow and Doppler transthoracic echocardiogram is performed. 2. Left ventricular chamber dimension is normal. 3. Left ventricular systolic function is normal, estimated at 60-65%. 4. The left ventricular diastolic function is normal. 5. Left atrial chamber dimension is moderately enlarged. 6. The mitral valve has mildly calcified posterior leaflet. 7. There is moderate mitral valve regurgitation. 8. There is mild to moderate tricuspid valve regurgitation. 9. Mild pulmonary hypertension, estimated pulmonary arterial systolic pressure is 41 mmHg. Left Ventricle Tissue doppler E/e' is not performed. Left ventricular chamber dimension is normal. Left ventricular systolic function is normal, estimated at 60-65%. The left ventricular diastolic function is normal. Right Ventricle Right ventricular systolic function is normal and with normal TAPSE 2.4 cm. Right ventricular chamber dimension is normal. Left Atria Left atrial chamber dimension is moderately enlarged. Right Atria Right atrial chamber dimension is normal. Aortic Valve The aortic valve is trileaflet. There is no aortic valve stenosis. There is no aortic valve regurgitation. Pulmonic Valve There is no pulmonic regurgitation. Mitral Valve The mitral valve has mildly calcified posterior leaflet. There is no mitral valve stenosis. There is moderate mitral valve regurgitation. Tricuspid Valve There is mild to moderate tricuspid valve regurgitation. Mild pulmonary hypertension, estimated pulmonary arterial systolic pressure is 41 mmHg. Pericardium/Pleural There is no pericardial effusion. Inferior Vena Cava Normal inferior vena cava with >50% collapse upon inspiration consistent with normal right atrial pressure, 5 mmHg. Aorta The aortic root size at the sinus of Valsalva is normal. Left Ventricular Outflow Tract Name Value Normal LVOT 2D LVOT Diameter 2.1 cm LVOT Doppler LVOT Peak Gradient 4 mmHg LVOT Mean Gradient 3 mmHg LVOT VTI 21 cm LVOT VTI/AV VTI Ratio 0.9 LVOT Stroke Volume 75 ml LVOT CO 15.9 l/min LVOT CI 8.1 l/min/m2 Pulmonic Valve Name Value Normal RVOT Doppler
== END 2023-08-20 14:29 | disposition home or self-care (01) ==
PROVIDERS: Visit Provider Internal Medicine Cardiovascular Disease
DX: I25.5 Ischemic cardiomyopathy (principal); I51.7 Cardiomegaly; I34.81 Nonrheumatic mitral (valve) annulus calcification; I34.0 Nonrheumatic mitral (valve) insufficiency; I27.20 Pulmonary hypertension, unspecified
CPT/HCPCS: 93306

== ENCOUNTER 2023-09-03 13:49 | Outpatient (CLI) | payer OTHER, SELFPAY ==
--- NOTE | ~2023-09-03 | DEXA_ITS ---
Bone Density Report Name: JEFFRY HENDERSON Age: 63 Sex: Male Ethnicity: White Date of : 1960 Indication: height loss; asthma or emphysema; Referring Provider: YONAS FLETCHER Study: Bone densitometry was performed. Exam Date: September 03, 2023 Accession number: [id number] Bone Density: Region BMD T-score Z-score Classification AP Spine(L1-L4) 0.803 -2.6 -2.0 Osteoporosis Femoral Neck (Left) 0.666 -1.9 -1.0 Osteopenia Total Hip (Left) 0.867 -1.1 -0.6 Osteopenia Femoral Neck (Right) 0.641 -2.1 -1.2 Osteopenia Total Hip (Right) 0.792 -1.6 -1.1 Osteopenia Total Hip Mean 0.830 -1.4 -0.9 Osteopenia World Health Organization criteria for BMD impression classify patients as: Normal (T-score at or above -1.0), Osteopenia (T-score between -1.0 and -2.5), or Osteoporosis (T-score at or below -2.5). 10-year Fracture Risk: FRAX not reported because: Some T-score for Spine Total or Hip Total or Femoral Neck at or below -2.5 Treated for osteoporosis Clinical Information Provided by Patient: Has 3 or more alcoholic drinks per day Is being treated for osteoporosis Has used the following medications: Vitamin D, Calcium, weekly pill unsure of name Has the following medical conditions: Asthma or Emphysema Patient maximum height was 71 No regular weight bearing exercise Does not regularly consume dairy products Impression: The patient has osteoporosis, based on the Total Spine T-score. The patient has risk factors, including: excessive alcohol use. Discussion: It is important to ask patients whether they are taking their medications and to encourage continued and appropriate compliance with their osteoporosis therapies to reduce fracture risk. It is also important to review their risk factors and encourage appropriate calcium and vitamin D intakes, exercise, fall prevention and other lifestyle measures. Follow-Up: Consider repeating this study in 2 years to reassess this patient's status, or sooner if there is some new clinical indication. Reported by: LARA on 09/04/2023 3:29:00 PM. Reviewed, dictated and finalized at location A. STEPHANIE
== END 2023-09-03 13:50 | disposition home or self-care (01) ==
LOC: ANHIMG 13:51
PROVIDERS: Visit Provider Nurse Practitioner Family
DX: M81.0 Age-related osteoporosis without current pathological fracture (principal); M85.852 Other specified disorders of bone density and structure, left thigh; M85.851 Other specified disorders of bone density and structure, right thigh
CPT/HCPCS: 77080

== ENCOUNTER 2023-10-01 12:58 | Outpatient (CLI) | payer OTHER, SELFPAY ==
--- NOTE | ~2023-10-01 | XR_ITS ---
EXAMINATION: XR lg joint inject/asp w image DATE: 10/01/2023 14:04 INDICATION: Right shoulder pain TECHNIQUE: A time-out was performed to verify the patient's name, date of , and procedure to b e performed. The procedure including the risks, benefits, and alternatives was discussed with the pat ient. Risks discussed included bleeding and infection. The patient understood the risks and agreed to proceed. The skin overlying the rotator cuff interval of the right glenohumeral joint was prepped a nd draped in usual sterile fashion. Anesthetic was administered with 1% lidocaine subcutaneously. A 22 G needle was advanced under fluoroscopic guidance into the joint. Injection of 1 mL of Omnipaque 240 confirmed intra-articular position of the needle. Subsequently, injectate consisting of 4 mL a 3:1 mixture of 1% lidocaine: 40 mg/mL triamcinolone for a total dosage of 40 mg triamcinolone was ins tilled. Washout of contrast was seen confirming intra-articular administration. The needle was remove d and the entry site was cleaned and dressed. There were no immediate complications. Fluoroscopy exp osure time was 0.1 minutes. The total number of images was 2. Total DAP was 0.2 Gycm^2. FINDINGS: Real-time fluoroscopy demonstrates the needle in the right glenohumeral joint. Patient's pa in prior to procedure:12/18. Patient's pain following the procedure: 06/20. IMPRESSION: 1. Successful right glenohumeral joint injection of local anesthetic and steroid with decrease in the patient's presenting pain. Reviewed, dictated and finalized at location A. IMPRESSION: 1. Successful right glenohumeral joint injection of local anesthetic and steroi d with decrease in the patient's presenting pain.
== END 2023-10-01 12:59 | disposition home or self-care (01) ==
PROVIDERS: PCP Physician Assistant; Visit Provider Physician Assistant
DX: M25.511 Pain in right shoulder (principal)
CPT/HCPCS: 20610; 77002; J3301; Q9966

== ENCOUNTER 2023-10-10 13:30 | Outpatient (RCR) | payer OTHER, SELFPAY ==
[2023-08-21 15:48] VITALS: PULSE 72
== END 2023-10-30 09:47 | disposition home or self-care (01) ==
LOC: ANHCPREHAB 13:30
PROVIDERS: PCP Nurse Practitioner Family; Visit Provider Internal Medicine Cardiovascular Disease
DX: Z95.5 Presence of coronary angioplasty implant and graft (principal)
CPT/HCPCS: 93798

== ENCOUNTER 2023-11-11 12:39 | Inpatient (IN) | payer OTHER, SELFPAY ==
[2023-11-11] VITALS (11 sets, daily range): BP systolic 103–153; BP diastolic 60–106; PULSE 81–108; RESP 16–22; TEMP 36.4–37.7; O2SAT 92–97
--- NOTE | ~2023-11-11 | XR_ITS ---
XR chest 2V 11/11/2023 12:58 Indication: Tachycardia. Emphysema. Shortness of breath. Procedure: 2 view chest Comparison: Comparison to multiple prior studies sequentially, with oldest reviewed study dated 12/23. Findings: There is right lower lobe pneumonia. Heart size normal. Left lung clear. No pleural effusio n or pneumothorax. No acute osseous abnormality. Impression: 1: Right lower lobe pneumonia. Reviewed, dictated and finalized at location B. Impression: 1: Right lower lobe pneumonia.
--- NOTE | 2023-11-11 12:45 | ECG_ITS ---
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 Measurements Intervals [place] Rate: 102 P: 0 NV: 153 QRS: -24 QRSD: 86 T: -12 QT: 311 QTc: 405 Interpretive Statements SINUS TACHYCARDIA POSSIBLE RIGHT VENTRICULAR CONDUCTION DELAY [RSR (QR) IN V1/V2] CANNOT RULE OUT PREVIOUS INFERIOR IA ABNORMAL ECG No previous ECG available for comparison Electronically Signed On 11-12-2023 07:17:54 CDT by Dieudonne Lamar M.D.
--- NOTE | 2023-11-11 13:21 | ED.ARRPALP ---
HPI - Arrhythmia/Palpitations General Chief Complaint: Arrhythmia/Palpitations Stated Complaint: abn VS Time Seen by Provider: 11/11/23 13:01 History of Present Illness HPI narrative: Pt presents with SOB for the last 6 weeks getting progressively worse over the last couple of days. Pt had stents placed a couple of months ago. Pt says heart rate is fast as he normally runs in 80's. Pt denies CP or leg swelling or weight gain. Related Data Home Medications Medication Instructions Recorded Confirmed omeprazole 20 mg capsule,delayed 20 mg PO DAILY 10/31/21 11/11/23 release alendronate 70 mg tablet 70 mg PO WEEKLY 11/10/22 11/11/23 trazodone 100 mg tablet 100 mg PO HS 11/10/22 11/11/23 albuterol sulfate 90 mcg/actuation 2 puff inhalation Q6H PRN Wheezing 06/17/23 11/11/23 aerosol inhaler cholecalciferol (vitamin D3) 125 125 mcg PO DAILY 06/17/23 11/11/23 mcg (5,000 unit) capsule fluticasone fur. 100 mcg-umeclid 1 inh inhalation QAM 06/17/23 11/11/23 62.5 mcg-vilant 25 mcg inhalat.powder (Trelegy Ellipta) folic acid 1 mg tablet 1 mg PO DAILY 06/17/23 11/11/23 atorvastatin 80 mg tablet 80 mg PO HS 06/19/23 11/11/23 calcium 100 mg capsule 100 mg PO DAILY 06/19/23 11/11/23 Allergies Allergy/AdvReac Type Severity Reaction Status Date / Time No Known Allergies Allergy Verified 10/19/23 13:26 Review of Systems Review of Systems: All systems reviewed & are unremarkable except as noted in HPI and below [facility] Past Medical History Medical History (Updated 11/11/23 @ 15:50 by Tania Adams PA-C) Anxiety and depression Chronic hyponatremia COPD with chronic bronchitis and emphysema Coronary artery disease Former smoker Gastroesophageal reflux disease Heavy alcohol use Hypercholesteremia Hypertension Ischemic cardiomyopathy EF is low as 30 to 35% in June 2023; improved to 60 to 65% on echo obtained in August 2023. Osteoporosis Thoracic compression fracture Surgical History Surgical History (Updated 11/11/23 @ 15:48 by Tania Adams PA-C) History of coronary artery stent placement (06/2023) x3 to the LAD. History of tonsillectomy Family History Family History (Updated 11/11/23 @ 16:39 by Emerita Solo RN) Father Aneurysm Other Unknown family medical history Social History Social History (Updated 11/11/23 @ 15:49 by Tania Adams PA-C) Social History: Surrogate medical decision maker: Code status: Full code. Smoking packs per day: 1.5 Smoking cigarettes per day: 30.0 Years smoked: 44 Smoking pack-years: 66.00 Smoking status: Former smoker Second hand tobacco smoke exposure: No Alcohol intake: current Drinks per week: 4 Alcohol use details: wine Substance use: current Substance use type: marijuana Last use: Sunday Do You Feel Safe in your Home?: Yes Lack of Transportation: No Lack of Food: Never True Current Housing: I Have Housing Concerned About Future Housing: No Difficulty Paying Gas/Electric Bills: No Difficulty Paying for Meds: No Currently Unemployed: No Education: High School Diploma/GED Difficulty w/ Childcare or Family Care: No Living arrangements: alone Additional living arrangements comments: Lives alone in [place]. 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 Spiritual care concerns: No Exam Const: General: healthy appearing and no acute distress Orientation/consciousness: patient oriented x3 HENMT: Mouth: Yes Normal oral and palatal mucosa present Eyes: Pupils: Equal, round and reactive pupils present EOM: EOMs intact bilaterally Neck: Neck: normal visual inspection and no lymphadenopathy Resp: Effort & Inspection: normal respiratory effort Auscultation: crackles Cardio: Rate: regular rate Rhythm: regular rhythm GI: GI Palp: Yes Soft to palpation Auscultation: normal bowel sounds Skin: General skin exam: norm
[2023-11-11] MEDS: IPRATROPIUM 0.5 MG/ALBUTEROL SULFATE 2.5 MG AMPUL.NEB 3 ML INHALATION (13:24)
[2023-11-11 13:34] LABS: Basophils Percent Auto 0.2 % (0.2-1.2); Eosinophils Percent Auto 0.2 % (0-4.4); Hematocrit 40.2 % (42.0-52.0); Hemoglobin 14.2 g/dL (14.0-18.0); Immature Granulocyte Absolute 0.06 K/mm3 (0.00-0.031); Immature Granulocyte Percent A 0.5 % (0-0.5); Lymphocytes Absolute Auto 0.55 K/mm3 (0.9-3.2); Lymphocytes Percent Auto 4.5 % (18.3-44.2); Mean Corpuscular HGB Conc 35.3 g/dl (32-36); Mean Corpuscular Hemoglobin 33.2 pg (26-34); Mean Corpuscular Volume 93.9 fl (80-100); Mean Platelet Volume 8.2 fl (7.4-10.4); Monocytes Absolute Auto 1.2 K/mm3 (0.1-0.6); Monocytes Percent Auto 10.2 % (2.6-8.5); Neutrophils Absolute Auto 10.2 K/mm3 (1.3-6.7); Neutrophils Percent Auto 84.4 % (45.5-73.1); Platelet Count Result 264 k/mm3 (150-375); Red Blood Count 4.28 M/mm3 (4.6-6.20); Red Cell Distribution Width 12.4 % (11.5-14.5); White Blood Count 12.1 K/mm3 (4.5-10.0)
[2023-11-11 13:43] LABS: Alanine Aminotransferase 20 U/L (6-50); Albumin Level 4.6 g/dL (3.5-5.1); Alkaline Phosphatase 129 U/L (38-126); Anion Gap 10 mmol/L (4-12); Aspartate Amino Transferase 28 U/L (17-59); Bilirubin,Total 1.2 mg/dL (0.2-1.3); Blood Urea Nitrogen 8 mg/dL (9-20); Calcium 9.2 mg/dL (8.4-10.2); Carbon Dioxide 27 mmol/L (22-30); Chloride 96 mmol/L (98-107); Estimated Glomerular Filt Rate > 60; Glucose 117 mg/dL (65-110); Lipase 43 U/L (23-300); Potassium 4.3 mmol/L (3.4-5.0); Sodium 133 mmol/L (137-145)
[2023-11-11 13:50] LABS: NT Pro B Type Natriuretic Pept 639 pg/mL (19.9-100)
[2023-11-11 13:54] LABS: Troponin I < 0.012 ng/mL (0.000-0.034)
[2023-11-11 14:18] LABS: Partial Thromboplastin Time 40.1 Seconds (22.3-36.8)
[2023-11-11 14:25] LABS: Prothrombin Time 13.8 Seconds (11.1-14.7)
--- NOTE | 2023-11-11 15:40 | PM.IMHP ---
H&P: HPI History of Present Illness Date/Time: 11/11/23 16:45 Chief Complaint: Shortness of breath. Narrative: This is a 63-year-old male with coronary artery disease status post stents to the LAD in June 2023, ischemic cardiomyopathy with improved ejection fraction to 60 to 65% in August 2023, hypertension, chronic obstructive pulmonary disease, and gastroesophageal reflux disease who presented to the emergency department for evaluation of shortness of breath. The patient provides the following history. He has not been feeling well with runny nose, cough occasionally productive of clear sputum however he has had several episodes where he has coughed up dark reddish brown sputum, chills, fatigue, and dyspnea on exertion. He has a pulse oximeter at home and has noticed that his heart rate has been running in the lower 100s and his SpO2 has been in the low 90s, both which are unusual for him. He is unaware of sick contacts however he has been going to cardiac rehab. He denies dysphagia and concerns for aspiration. He denies documented fever, headache, sore throat, chest and pleuritic pain, orthopnea, paroxysmal nocturnal dyspnea, vomiting, diarrhea, calf pain, and lower extremity swelling. In the ED: He was afebrile on arrival with a pulse of 108 (sinus tachycardia) and an SpO2 of 92%. Blood pressures have been stable. Labs are significant for a WBC count of 12.1, hemoglobin 14.2, sodium 133, potassium 4.3, chloride 96, BUN 8, creatinine 0.70, glucose 117, troponin less than 0.012, proBNP 639. Chest x-ray showed right lower lobe pneumonia. He was given a nebulizer treatment, azithromycin, and ceftriaxone and he is being admitted in this setting for further treatment. Review of Systems Review of Systems: 12 systems were reviewed and are negative except for as per HPI. [facility] Past Medical History Medical History (Updated 11/11/23 @ 15:50 by Tania Adams PA-C) Anxiety and depression Chronic hyponatremia COPD with chronic bronchitis and emphysema Coronary artery disease Former smoker Gastroesophageal reflux disease Heavy alcohol use Hypercholesteremia Hypertension Ischemic cardiomyopathy EF is low as 30 to 35% in June 2023; improved to 60 to 65% on echo obtained in August 2023. Osteoporosis Thoracic compression fracture Surgical History Surgical History (Updated 11/11/23 @ 15:48 by Tania Adams PA-C) History of coronary artery stent placement (06/2023) x3 to the LAD. History of tonsillectomy Family History Family History (Updated 11/11/23 @ 16:39 by Emerita Solo RN) Father Aneurysm Other Unknown family medical history Social History Social History (Updated 11/11/23 @ 22:11 by Tania Adams PA-C) Social History: Surrogate medical decision maker: Valeriano Laguna, sibling. Code status: Full code. Smoking packs per day: 1.5 Smoking cigarettes per day: 30.0 Years smoked: 44 Smoking pack-years: 66.00 Smoking status: Former smoker Second hand tobacco smoke exposure: No Alcohol intake: current Drinks per week: 4 Alcohol use details: wine Substance use: current Substance use type: marijuana Last use: Sunday Do You Feel Safe in your Home?: Yes Lack of Transportation: No Lack of Food: Never True Current Housing: I Have Housing Concerned About Future Housing: No Difficulty Paying Gas/Electric Bills: No Difficulty Paying for Meds: No Currently Unemployed: No Education: High School Diploma/GED Difficulty w/ Childcare or Family Care: No Living arrangements: alone Additional living arrangements comments: Lives alone in [place]. 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 Spiritual care concerns: No Meds Home Medications and Allergies Home Medications Medication Instructions Recorded Confirmed Type omeprazole 20 mg capsule,delayed 20 mg PO DAILY 10/31/21 11/11/23 History
--- NOTE | 2023-11-11 16:10 | ADMGEN ---
This patient, Edgar Laguna, was admitted to Medical Room 346-01. Patient/family oriented to hospital policies and general routines including ID bracelet, bed and alarms, visiting hours, pain management, procedures, bathroom and other care routines, personal items, smoking policy, room service/diet, and visiting hours. Information on how to activate the Rapid Response Team has been discussed. Patient/Family are encouraged to report perceived risks to care and to ask questions if they do not understand what they are told or what they should do.
--- NOTE | 2023-11-11 16:18 | ADMGEN ---
This patient, Edgar Laguna, was admitted to Medical Room 346-01 @1610. Patient/family oriented to hospital policies and general routines including ID bracelet, bed and alarms, visiting hours, pain management, procedures, bathroom and other care routines, personal items, smoking policy, room service/diet, and visiting hours. Information on how to activate the Rapid Response Team has been discussed. Patient/Family are encouraged to report perceived risks to care and to ask questions if they do not understand what they are told or what they should do.
[2023-11-11] MEDS: LACTATED RINGERS 1,000 ML 125 ML IV CONT (16:35)
[2023-11-11] MEDS: AZITHROMYCIN 500 MG/NS 250 ML 500 MG/250 ML BAG 250 MG IVPB (16:40)
[2023-11-11 16:57] LABS: Troponin I < 0.012 ng/mL (0.000-0.034)
[2023-11-11] MEDS: METOPROLOL SUCCINATE EXT REL 50 MG TABCR PO (21:06)
[2023-11-11] MEDS: ATORVASTATIN 40 MG TABLET 80 MG PO (21:06)
[2023-11-11] MEDS: ASPIRIN 81 MG ENTERIC TABLET PO (21:07)
[2023-11-11] MEDS: LOSARTAN POTASSIUM 25 MG TABLET PO (21:07)
[2023-11-11] MEDS: FOLIC ACID 1 MG TABLET PO (21:07)
[2023-11-11] MEDS: PANTOPRAZOLE 40 MG TABLET PO (21:07)
[2023-11-11] MEDS: CHOLECALCIFEROL 1,000 UNITS TABLET 5000 UNITS PO (21:07)
[2023-11-11] MEDS: FUROSEMIDE 20 MG TABLET PO (21:08)
[2023-11-11] MEDS: traZODone HCL 50 MG TABLET 100 MG PO (21:09)
[2023-11-11] MEDS: TICAGRELOR 90 MG TABLET PO (21:09)
[2023-11-11] MEDS: guaiFENesin 12 HR 600 MG TABCR 1200 MG PO (22:23)
[2023-11-12] VITALS (12 sets, daily range): BP systolic 102–119; BP diastolic 55–69; PULSE 85–100; RESP 18–20; TEMP 36.5–37.3; O2SAT 92–95
[2023-11-12 05:41] LABS: Hematocrit 35.2 % (42.0-52.0); Hemoglobin 12.5 g/dL (14.0-18.0); Mean Corpuscular HGB Conc 35.5 g/dl (32-36); Mean Corpuscular Hemoglobin 33.3 pg (26-34); Mean Corpuscular Volume 93.9 fl (80-100); Mean Platelet Volume 8.3 fl (7.4-10.4); Platelet Count Result 260 k/mm3 (150-375); Red Blood Count 3.75 M/mm3 (4.6-6.20); Red Cell Distribution Width 12.2 % (11.5-14.5); White Blood Count 13.1 K/mm3 (4.5-10.0)
[2023-11-12 05:52] LABS: Anion Gap 4 mmol/L (4-12); Blood Urea Nitrogen 8 mg/dL (9-20); Calcium 8.7 mg/dL (8.4-10.2); Carbon Dioxide 27 mmol/L (22-30); Chloride 98 mmol/L (98-107); Estimated Glomerular Filt Rate > 60; Glucose 117 mg/dL (65-110); Magnesium 1.9 mg/dL (1.6-2.3); Potassium 3.8 mmol/L (3.4-5.0); Sodium 129 mmol/L (137-145)
[2023-11-12] MEDS: FLUTICASONE/UMECLIDIN/VILANTER 100-62.5-25 MCG ELLIPTA 1 PUFF INHALATION (07:32)
[2023-11-12] MEDS: guaiFENesin 12 HR 600 MG TABCR 1200 MG PO ×2 (08:52→20:16)
[2023-11-12] MEDS: TICAGRELOR 90 MG TABLET PO ×2 (11:28→20:15)
--- NOTE | 2023-11-12 11:29 | PC.NURSE ---
Ticagrelor (Brilanta) 90 mg administered at 1130 instead of 0900 per pt request.
--- NOTE | 2023-11-12 13:53 | PM.IMPN ---
Progress Note: A&P Assessment and Plan (1) Right lower lobe pneumonia: Code(s): J18.9 - Pneumonia, unspecified organism Status: Acute (2) Chronic hyponatremia: Code(s): E87.1 - Hypo-osmolality and hyponatremia Status: Acute (3) Coronary artery disease: Code(s): I25.10 - Atherosclerotic heart disease of [place] coronary artery without angina pectoris Status: Acute (4) Hypertension: Code(s): I10 - Essential (primary) hypertension Status: Acute (5) COPD with chronic bronchitis and emphysema: Code(s): J44.89 - Other specified chronic obstructive pulmonary disease; J43.9 - Emphysema, unspecified Status: Acute (6) Gastroesophageal reflux disease: Code(s): K21.9 - Gastro-esophageal reflux disease without esophagitis Status: Acute (7) Ischemic cardiomyopathy: Code(s): I25.5 - Ischemic cardiomyopathy Status: Acute Plan The patient presented to the emergency department for evaluation of shortness of breath. He has hx of coronary artery disease status post stents to the LAD in June 2023, ischemic cardiomyopathy with improved ejection fraction to 60 to 65% in August 2023, hypertension, chronic obstructive pulmonary disease, and gastroesophageal reflux disease. He has not been feeling well with runny nose, cough occasionally productive of clear sputum however he has had several episodes where he has coughed up dark reddish brown sputum, chills, fatigue, and dyspnea on exertion. He has a pulse oximeter at home and has noticed that his heart rate has been running in the lower 100s and his SpO2 has been in the low 90s, both which are unusual for him. He is unaware of sick contacts however he has been going to cardiac rehab. He denies dysphagia and concerns for aspiration. He denies documented fever, headache, sore throat, chest and pleuritic pain, orthopnea, paroxysmal nocturnal dyspnea, vomiting, diarrhea, calf pain, and lower extremity swelling. In the ED: He was afebrile on arrival with a pulse of 108 (sinus tachycardia) and an SpO2 of 92%. Blood pressures have been stable. Labs are significant for a WBC count of 12.1, hemoglobin 14.2, sodium 133, potassium 4.3, chloride 96, BUN 8, creatinine 0.70, glucose 117, troponin less than 0.012, proBNP 639. Chest x-ray showed right lower lobe pneumonia. He was given a nebulizer treatment, azithromycin, and ceftriaxone and he is being admitted in this setting for further treatment. Chest x-ray showed pneumonia in the right lower lobe and he has been started on azithromycin and ceftriaxone. Continue scheduled bronchodilators. Attempt sputum for culture. Check Legionella and pneumococcal antigens as well as mycoplasma IgM. SpO2 has been in the low 90s an oxygen will be weaned as tolerated. He has chronic hyponatremia which is stable. Avoid over-hydration given history of ischemic cardiomyopathy though his EF had normalized on recent echocardiogram. Blood pressures were reviewed and they are stable. No acute issues with regards to COPD. DVT proph: add lovenox Subjective Date/time seen: 11/12/23 13:53 Interval history: feeeling better, no nausea, vmoiting. coughing with expectoration. no chest pain .sob with exertion. does have copd Review of Systems Review of Systems: All systems reviewed & are unremarkable except as noted in HPI and below Exam Narrative: General: Mildly ill-appearing gentleman , no acute distress HEENT: PERRL, EOMI. Sclera anicteric. Oral mucosa moist. Neck: Supple. No JVD. Respiratory: Respirations are even and nonlabored coarse breath sounds Cardiovascular: Regular rate and rhythm with S1-S2. Gastrointestinal: Abdomen is soft, nontender, and nondistended with positive bowel sounds. Skin: Warm and dry. No rash or lesions on limited exam. Extremities: No cyanosis, clubbing, or edema. Radial and pedal pulses intact. Neurological: Alert. Cranial nerves 2-12 are grossly intact. No gross focal def
[2023-11-12] MEDS: AZITHROMYCIN 500 MG/NS 250 ML 500 MG/250 ML BAG 250 MG IVPB (14:10)
[2023-11-12] MEDS: CHOLECALCIFEROL 1,000 UNITS TABLET 5000 UNITS PO (17:35)
[2023-11-12] MEDS: FUROSEMIDE 20 MG TABLET PO (17:35)
[2023-11-12] MEDS: FOLIC ACID 1 MG TABLET PO (17:36)
[2023-11-12] MEDS: ASPIRIN 81 MG ENTERIC TABLET PO (17:36)
[2023-11-12] MEDS: LOSARTAN POTASSIUM 25 MG TABLET PO (17:36)
[2023-11-12] MEDS: METOPROLOL SUCCINATE EXT REL 50 MG TABCR PO (17:36)
[2023-11-12] MEDS: PANTOPRAZOLE 40 MG TABLET PO (17:37)
[2023-11-12] MEDS: ATORVASTATIN 40 MG TABLET 80 MG PO (17:38)
[2023-11-12] MEDS: traZODone HCL 50 MG TABLET 100 MG PO (20:15)
[2023-11-13] VITALS (13 sets, daily range): BP systolic 106–110; BP diastolic 62–70; PULSE 85–95; RESP 16–20; TEMP 36.4–36.8; O2SAT 93–95
[2023-11-13 05:56] LABS: Basophils Percent Auto 0.3 % (0.2-1.2); Eosinophils Absolute Auto 0.1 K/mm3 (0-0.3); Eosinophils Percent Auto 0.8 % (0-4.4); Hematocrit 33.9 % (42.0-52.0); Hemoglobin 12.1 g/dL (14.0-18.0); Immature Granulocyte Absolute 0.09 K/mm3 (0.00-0.031); Immature Granulocyte Percent A 0.8 % (0-0.5); Lymphocytes Absolute Auto 1.35 K/mm3 (0.9-3.2); Lymphocytes Percent Auto 11.8 % (18.3-44.2); Mean Corpuscular HGB Conc 35.7 g/dl (32-36); Mean Corpuscular Hemoglobin 33.4 pg (26-34); Mean Corpuscular Volume 93.6 fl (80-100); Mean Platelet Volume 8.1 fl (7.4-10.4); Monocytes Absolute Auto 1.4 K/mm3 (0.1-0.6); Monocytes Percent Auto 11.9 % (2.6-8.5); Neutrophils Absolute Auto 8.5 K/mm3 (1.3-6.7); Neutrophils Percent Auto 74.4 % (45.5-73.1); Platelet Count Result 242 k/mm3 (150-375); Red Blood Count 3.62 M/mm3 (4.6-6.20); Red Cell Distribution Width 12.2 % (11.5-14.5); White Blood Count 11.5 K/mm3 (4.5-10.0)
[2023-11-13 06:05] LABS: Alanine Aminotransferase 17 U/L (6-50); Albumin Level 3.7 g/dL (3.5-5.1); Alkaline Phosphatase 106 U/L (38-126); Anion Gap 8 mmol/L (4-12); Aspartate Amino Transferase 22 U/L (17-59); Bilirubin,Total 1.1 mg/dL (0.2-1.3); Blood Urea Nitrogen 10 mg/dL (9-20); Calcium 8.5 mg/dL (8.4-10.2); Carbon Dioxide 24 mmol/L (22-30); Chloride 97 mmol/L (98-107); Estimated Glomerular Filt Rate > 60; Glucose 117 mg/dL (65-110); Potassium 3.8 mmol/L (3.4-5.0); Sodium 129 mmol/L (137-145)
[2023-11-13] MEDS: FLUTICASONE/UMECLIDIN/VILANTER 100-62.5-25 MCG ELLIPTA 1 PUFF INHALATION (07:36)
[2023-11-13] MEDS: guaiFENesin 12 HR 600 MG TABCR 1200 MG PO ×2 (09:42→20:01)
[2023-11-13] MEDS: ENOXAPARIN 40 MG/0.4 ML SYRINGE SUB-Q (09:42)
[2023-11-13] MEDS: CALCIUM CARBONATE (OSCAL) 250 MG TABLET PO (09:42)
[2023-11-13] MEDS: TICAGRELOR 90 MG TABLET PO ×2 (09:43→20:01)
--- NOTE | 2023-11-13 11:52 | PC.NURSE ---
Patient orders changed to up ad kaz. Patient in hallway, walking up and down middle of hallway, carrying plastic bag with his boots and personal items simulating a bag of groceries . Patient breathing is observed to be very labored, HR 102 and oxygen saturation saturation at 91% (with portable pulse ox). This nurse recommended slowing down, walking without the bag, and or walking near handrail for balance in case he starts feeling dizzy. Patient responded What is the point? I have to push myself to get better. Call the police if you don't like it.
[2023-11-13] MEDS: AZITHROMYCIN 500 MG/NS 250 ML 500 MG/250 ML BAG 250 MG IVPB (14:37)
--- NOTE | 2023-11-13 15:48 | PM.IMPN ---
Progress Note: A&P Assessment and Plan (1) Right lower lobe pneumonia: Code(s): J18.9 - Pneumonia, unspecified organism Status: Acute (2) Chronic hyponatremia: Code(s): E87.1 - Hypo-osmolality and hyponatremia Status: Acute (3) Coronary artery disease: Code(s): I25.10 - Atherosclerotic heart disease of [place] coronary artery without angina pectoris Status: Acute (4) Hypertension: Code(s): I10 - Essential (primary) hypertension Status: Acute (5) COPD with chronic bronchitis and emphysema: Code(s): J44.89 - Other specified chronic obstructive pulmonary disease; J43.9 - Emphysema, unspecified Status: Acute (6) Gastroesophageal reflux disease: Code(s): K21.9 - Gastro-esophageal reflux disease without esophagitis Status: Acute (7) Ischemic cardiomyopathy: Code(s): I25.5 - Ischemic cardiomyopathy Status: Acute Plan The patient presented to the emergency department for evaluation of shortness of breath. He has hx of coronary artery disease status post stents to the LAD in June 2023, ischemic cardiomyopathy with improved ejection fraction to 60 to 65% in August 2023, hypertension, chronic obstructive pulmonary disease, and gastroesophageal reflux disease. He has not been feeling well with runny nose, cough occasionally productive of clear sputum however he has had several episodes where he has coughed up dark reddish brown sputum, chills, fatigue, and dyspnea on exertion. He has a pulse oximeter at home and has noticed that his heart rate has been running in the lower 100s and his SpO2 has been in the low 90s, both which are unusual for him. He is unaware of sick contacts however he has been going to cardiac rehab. He denies dysphagia and concerns for aspiration. He denies documented fever, headache, sore throat, chest and pleuritic pain, orthopnea, paroxysmal nocturnal dyspnea, vomiting, diarrhea, calf pain, and lower extremity swelling. In the ED: He was afebrile on arrival with a pulse of 108 (sinus tachycardia) and an SpO2 of 92%. Blood pressures have been stable. Labs are significant for a WBC count of 12.1, hemoglobin 14.2, sodium 133, potassium 4.3, chloride 96, BUN 8, creatinine 0.70, glucose 117, troponin less than 0.012, proBNP 639. Chest x-ray showed right lower lobe pneumonia. He was given a nebulizer treatment, azithromycin, and ceftriaxone and he is being admitted in this setting for further treatment. Chest x-ray showed pneumonia in the right lower lobe and he has been started on azithromycin and ceftriaxone. Continue scheduled bronchodilators. Attempt sputum for culture. Check Legionella and pneumococcal antigens as well as mycoplasma IgM. SpO2 has been in the low 90s an oxygen will be weaned as tolerated. He has chronic hyponatremia which is stable. Avoid over-hydration given history of ischemic cardiomyopathy though his EF had normalized on recent echocardiogram. Blood pressures were reviewed and they are stable. No acute issues with regards to COPD. Leukocytosis improving will continue on IV antibiotics. Will adjust activity up ad kaz and monitor clinically for any worsening shortness of breath. DVT proph: Lovenox If does well can DC in a.m. Subjective Date/time seen: 11/13/23 15:48 Interval history: Feeling better. No new complaints. Has some cough. Labs reviewed. Wants to ambulate more. Review of Systems Review of Systems: All systems reviewed & are unremarkable except as noted in HPI and below Exam Narrative: General: Mildly ill-appearing gentleman , no acute distress HEENT: PERRL, EOMI. Sclera anicteric. Oral mucosa moist. Neck: Supple. No JVD. Respiratory: Respirations are even and nonlabored coarse breath sounds Cardiovascular: Regular rate and rhythm with S1-S2. Gastrointestinal: Abdomen is soft, nontender, and nondistended with positive bowel sounds. Skin: Warm and dry. No rash or lesions on limited exam. Extremi
[2023-11-13] MEDS: FUROSEMIDE 20 MG TABLET PO (17:42)
[2023-11-13] MEDS: METOPROLOL SUCCINATE EXT REL 50 MG TABCR PO (17:43)
[2023-11-13] MEDS: ATORVASTATIN 40 MG TABLET 80 MG PO (17:43)
[2023-11-13] MEDS: LOSARTAN POTASSIUM 25 MG TABLET PO (17:44)
[2023-11-13] MEDS: CHOLECALCIFEROL 1,000 UNITS TABLET 5000 UNITS PO (17:44)
[2023-11-13] MEDS: PANTOPRAZOLE 40 MG TABLET PO (17:44)
[2023-11-13] MEDS: FOLIC ACID 1 MG TABLET PO (17:44)
[2023-11-13] MEDS: ASPIRIN 81 MG ENTERIC TABLET PO (17:44)
[2023-11-13] MEDS: traZODone HCL 50 MG TABLET 100 MG PO (20:01)
[2023-11-14] VITALS: PULSE 81
[2023-11-14 04:00] VITALS: PULSE 71
[2023-11-14 04:57] LABS: Basophils Absolute Auto 0.1 K/mm3 (0.0-0.1); Basophils Percent Auto 0.5 % (0.2-1.2); Eosinophils Absolute Auto 0.2 K/mm3 (0-0.3); Eosinophils Percent Auto 1.9 % (0-4.4); Hematocrit 34.7 % (42.0-52.0); Hemoglobin 12.2 g/dL (14.0-18.0); Immature Granulocyte Absolute 0.07 K/mm3 (0.00-0.031); Immature Granulocyte Percent A 0.7 % (0-0.5); Lymphocytes Absolute Auto 1.42 K/mm3 (0.9-3.2); Lymphocytes Percent Auto 15.2 % (18.3-44.2); Mean Corpuscular HGB Conc 35.2 g/dl (32-36); Mean Corpuscular Hemoglobin 33.2 pg (26-34); Mean Corpuscular Volume 94.6 fl (80-100); Mean Platelet Volume 8.1 fl (7.4-10.4); Monocytes Percent Auto 11.1 % (2.6-8.5); Neutrophils Absolute Auto 6.6 K/mm3 (1.3-6.7); Neutrophils Percent Auto 70.6 % (45.5-73.1); Platelet Count Result 259 k/mm3 (150-375); Red Blood Count 3.67 M/mm3 (4.6-6.20); White Blood Count 9.4 K/mm3 (4.5-10.0)
[2023-11-14 05:09] LABS: Alanine Aminotransferase 21 U/L (6-50); Albumin Level 3.7 g/dL (3.5-5.1); Alkaline Phosphatase 105 U/L (38-126); Anion Gap 7 mmol/L (4-12); Aspartate Amino Transferase 31 U/L (17-59); Bilirubin,Total 0.8 mg/dL (0.2-1.3); Blood Urea Nitrogen 11 mg/dL (9-20); Calcium 8.6 mg/dL (8.4-10.2); Carbon Dioxide 26 mmol/L (22-30); Chloride 100 mmol/L (98-107); Estimated Glomerular Filt Rate > 60; Glucose 110 mg/dL (65-110); Magnesium 2.2 mg/dL (1.6-2.3); Potassium 3.4 mmol/L (3.4-5.0); Sodium 133 mmol/L (137-145)
[2023-11-14 05:50] VITALS: BP 102/53; PULSE 76; RESP 16; TEMP 36.9; O2SAT 94
[2023-11-14 07:07] VITALS: PULSE 77; RESP 18; O2SAT 92
[2023-11-14] MEDS: FLUTICASONE/UMECLIDIN/VILANTER 100-62.5-25 MCG ELLIPTA 1 PUFF INHALATION (07:07)
[2023-11-14] MEDS: guaiFENesin 12 HR 600 MG TABCR 1200 MG PO (09:34)
[2023-11-14] MEDS: CALCIUM CARBONATE (OSCAL) 250 MG TABLET PO (09:34)
[2023-11-14] MEDS: ENOXAPARIN 40 MG/0.4 ML SYRINGE SUB-Q (09:34)
[2023-11-14] MEDS: TICAGRELOR 90 MG TABLET PO (09:34)
--- NOTE | 2023-11-14 11:20 | PM.DS ---
DS: Admitting Diagnosis Discharge Date 11/14/23 Admitting Diagnosis Shortness of breath DS: Discharge Diagnosis Discharge Diagnosis (1) Right lower lobe pneumonia: Code(s): J18.9 - Pneumonia, unspecified organism Status: Acute (2) Chronic hyponatremia: Code(s): E87.1 - Hypo-osmolality and hyponatremia Status: Acute (3) Coronary artery disease: Code(s): I25.10 - Atherosclerotic heart disease of [place] coronary artery without angina pectoris Status: Acute (4) Hypertension: Code(s): I10 - Essential (primary) hypertension Status: Acute (5) COPD with chronic bronchitis and emphysema: Code(s): J44.89 - Other specified chronic obstructive pulmonary disease; J43.9 - Emphysema, unspecified Status: Acute (6) Gastroesophageal reflux disease: Code(s): K21.9 - Gastro-esophageal reflux disease without esophagitis Status: Acute (7) Ischemic cardiomyopathy: Code(s): I25.5 - Ischemic cardiomyopathy Status: Acute DS: Summary Hospital Course Reason for hospitalization: 63yo male with COPD, HTN and CAD here for shortness of breath. Please see H&P for details Hospital Course: The patient presented to the emergency department for evaluation of shortness of breath. He has hx of CAD status post stents to the LAD in June 2023, ischemic cardiomyopathy with improved EF to 60 to 65% in August 2023, HTN and COPD. In the ED: He was afebrile with a pulse of 108 (sinus tachycardia) and an SpO2 of 92%. Blood pressures have been stable. Labs are significant for a WBC count of 12.1, sodium 133, troponin less than 0.012, proBNP 639. CXR showed right lower lobe pneumonia. EKG showing no acute changes. He was given a nebulizer treatment, azithromycin, and ceftriaxone and was admitted. No BCx collected. Sputum culture pending. WBC normalized. Sodium dropped to 129 before climbing to 133. He has a chronic mild hyponatremia. Legionella and pneumococcal antigens pending. Cough has improved. He is up walking in the halls with minimal dyspnea. He overall did well and was able to be discharged home on 11/14/23 Status at Discharge Cognitive/behavioral status at discharge: stable Time Spent with Patient Time attestation: Total time spent providing and/or coordinating discharge services: 34 minutes Time spent: Greater than 30 minutes Exam Narrative: AF 98.4 102/53 77 18 92% ra Gen - NARD Chest - right base crackles o/w clear. CV - RRR S1/S2. Tele showing no significant dysrhythmias Abd - Soft, NT/ND, Positive BS Ext - No pedal edema Psych - Nml mood and affect Skin - Warm and dry DS: Data Data Completed and Pending Labs on day of discharge: Labs from last 24 hours 11/14/23 04:50 WBC 9.4 RBC 3.67 L Hgb 12.2 L Hct 34.7 L MCV 94.6 MCH 33.2 MCHC 35.2 RDW 12.0 Plt Count 259 MPV 8.1 Immature Gran % (Auto) 0.7 H Neut % (Auto) 70.6 Lymph % (Auto) 15.2 L [place] % (Auto) 11.1 H Eos % (Auto) 1.9 Baso % (Auto) 0.5 Lymph # (Auto) 1.42 [place] # (Auto) 1.0 H Eos # (Auto) 0.2 Baso # (Auto) 0.1 Abs Immat Gran (auto) 0.07 H Absolute Neuts (auto) 6.6 Absolute Nucleated RBC 0.000 Nucleated RBC % 0.0 Sodium 133 L Potassium 3.4 Chloride 100 Carbon Dioxide 26 Anion Gap 7 BUN 11 Creatinine 0.60 L Estim Creat Clear Calc Not Reportable Estimated GFR > 60 Glucose 110 Calcium 8.6 Magnesium 2.2 Total Bilirubin 0.8 AST 31 ALT 21 Alkaline Phosphatase 105 Total Protein 7.0 Albumin 3.7 Preliminary micro results at discharge 11/12/23 13:06 Sputum Culture - Preliminary Sputum Discharge Plan Discharge Attending physician on discharge: Elkin Coulter Discharging Clinician: Elkin Coulter Anticipated Discharge Date/Time: 11/14/23 11:30 Patient Disposition: Home, Self-Care Activity: as tolerated Diet: heart healthy Discharge Instructions: Per Care Coordination: Jerson lópez
[2023-11-14] MEDS: AZITHROMYCIN 250 MG TABLET PO (12:01)
[2023-11-16 17:59] LABS: Pneumococcal Antigen Urine NOT DETECTED
[2023-11-17 21:43] LABS: Legionella pneumophila Ag Ur NOT DETECTED
[2023-11-19 19:43] LABS: Mycoplasma IgM Antibody Titer 97 U/mL
--- NOTE | 2023-11-20 10:28 | PC.NURSE ---
Mycoplasma is normal at 97. Urine for legionella and pneumococcal both are not detected. Dr. Marylin manzano.
== END 2023-11-14 12:23 | disposition home or self-care (01) | DRG 139 ==
LOC: ANHED 14:47 → ANH3MED 15:53
PROVIDERS: Emergency Medicine; Physician Assistant; Admitting Provider Internal Medicine; Emergency Provider Emergency Medicine; PCP Emergency Medicine; Visit Provider Internal Medicine
DX: J18.9 Pneumonia, unspecified organism (principal); J44.0 Chronic obstructive pulmonary disease with (acute) lower respiratory infection; I10 Essential (primary) hypertension; I25.10 Atherosclerotic heart disease of native coronary artery without angina pectoris; Z95.5 Presence of coronary angioplasty implant and graft; I25.5 Ischemic cardiomyopathy; E87.1 Hypo-osmolality and hyponatremia; F41.9 Anxiety disorder, unspecified; F32.A Depression, unspecified; J43.9 Emphysema, unspecified; Z87.891 Personal history of nicotine dependence; K21.9 Gastro-esophageal reflux disease without esophagitis; E78.00 Pure hypercholesterolemia, unspecified; M81.0 Age-related osteoporosis without current pathological fracture
CPT/HCPCS: 36415; 71046; 80048; 80053; 83690; 83735; 83880; 84484; 85025; 85027; 85610; 85730; 86738; 87070; 87205; 87449; 87899; 93005; 94640; 96365; 96367; 96374; 99285; A9270; G0378; G0379; J0456; J0696; J1650; J7120

== ENCOUNTER 2023-11-15 13:28 | Emergency (ER) | payer OTHER, SELFPAY ==
--- NOTE | 2023-11-15 13:42 | ED.GENADULT ---
HPI - General Adult General Chief complaint: Abdominal Pain Stated complaint: SWOLLEN ABDOMEN Time Seen by Provider: 11/15/23 13:42 Source: patient, RN notes reviewed and old records reviewed Mode of arrival: ambulatory Limitations: no limitations History of Present Illness HPI narrative: 63-year-old male who was just discharged from [facility] after being admitted for several days comes to the [facility] with complaints of abdominal distension, bloating and gas. Patient states the only thing different was he is started on antibiotics. Since he was in the hospital has had increased take gas Denies any pain. Had a bowel movement this morning. Denies any urinary symptoms Symptoms started last night or this morning Related Data Home Medications Medication Instructions Recorded Confirmed omeprazole 20 mg capsule,delayed 20 mg PO DAILY 10/31/21 11/15/23 release alendronate 70 mg tablet 70 mg PO WEEKLY 11/10/22 11/15/23 trazodone 100 mg tablet 100 mg PO HS 11/10/22 11/15/23 albuterol sulfate 90 mcg/actuation 2 puff inhalation Q6H PRN Wheezing 06/17/23 11/15/23 aerosol inhaler cholecalciferol (vitamin D3) 125 125 mcg PO DAILY 06/17/23 11/15/23 mcg (5,000 unit) capsule fluticasone fur. 100 mcg-umeclid 1 inh inhalation QAM 06/17/23 11/15/23 62.5 mcg-vilant 25 mcg inhalat.powder (Trelegy Ellipta) folic acid 1 mg tablet 1 mg PO DAILY 06/17/23 11/15/23 atorvastatin 80 mg tablet 80 mg PO HS 06/19/23 11/15/23 calcium 100 mg capsule 100 mg PO DAILY 06/19/23 11/15/23 Allergies Allergy/AdvReac Type Severity Reaction Status Date / Time No Known Allergies Allergy Verified 11/15/23 13:36 Review of Systems Review of Systems: All systems reviewed & are unremarkable except as noted in HPI and below Constitutional: Constitutional: Reports no additional constitutional complaints Eyes: Eyes: Reports no additional eye complaints ENT: Reports system reviewed and no additional complaints, except as documented Cardiovascular: Cardiovascular: Reports no additional cardiovascular complaints, Denies chest pain and Denies dyspnea Respiratory: Respiratory: Reports no additional respiratory complaints, Denies chest congestion, Denies cough and Denies dyspnea Gastrointestinal: Gastrointestinal: Reports as per HPI, Denies abdominal pain, Denies nausea and Denies vomiting Musculoskeletal: Musculoskeletal: Reports no additional musculoskeletal complaints Integumentary/Breasts: Skin/Breast: Reports system reviewed and no additional complaints, except as docu Neurologic: Reports system reviewed and no additional complaints, except as documented Psychiatric: Psychiatric: Reports no additional psychiatric complaints Allergic/Immunologic: Allergic/Immunologic: Reports no additional allergic/immunologic complaints [facility] Past Medical History Medical History Anxiety and depression Chronic hyponatremia COPD with chronic bronchitis and emphysema Coronary artery disease Former smoker Gastroesophageal reflux disease Heavy alcohol use Hypercholesteremia Hypertension Ischemic cardiomyopathy EF is low as 30 to 35% in June 2023; improved to 60 to 65% on echo obtained in August 2023. Osteoporosis Thoracic compression fracture Surgical History Surgical History History of coronary artery stent placement (06/2023) x3 to the LAD. History of tonsillectomy Family History Family History Father Aneurysm Other Unknown family medical history Social History Social History Social History: Surrogate medical decision maker: Valeriano Laguna, sibling. Code status: Full code. Smoking packs per day: 1.5 Smoking cigarettes per day: 30.0 Years smoked: 44 Smoking pack-years: 66.00 Smoking status: Former smoker
[2023-11-15 13:44] VITALS: BP 112/82; PULSE 87; RESP 16; TEMP 36.4; O2SAT 97
== END 2023-11-15 13:56 | disposition home or self-care (01) ==
PROVIDERS: Emergency Provider Nurse Practitioner; PCP Emergency Medicine
DX: R14.0 Abdominal distension (gaseous) (principal); Z87.891 Personal history of nicotine dependence; F12.90 Cannabis use, unspecified, uncomplicated; J44.9 Chronic obstructive pulmonary disease, unspecified; I25.10 Atherosclerotic heart disease of native coronary artery without angina pectoris; K21.9 Gastro-esophageal reflux disease without esophagitis; E78.00 Pure hypercholesterolemia, unspecified; I10 Essential (primary) hypertension; I25.5 Ischemic cardiomyopathy; M81.0 Age-related osteoporosis without current pathological fracture; Z95.5 Presence of coronary angioplasty implant and graft; F32.A Depression, unspecified
CPT/HCPCS: 99211; G0463

== ENCOUNTER 2023-12-26 15:05 | Outpatient (CLI) | payer OTHER, SELFPAY ==
--- NOTE | ~2023-12-26 | XR_ITS ---
Clinical Indication: Pneumonia PA and lateral views of the chest: Comparison: 11/11/2023 Findings: There is a small area of slightly more confluent consolidation at the right infrahilar yoly on. Left lung remains clear.. Cardiomediastinal silhouette is within normal limits. Bones and soft t issues are unremarkable. Impression: Decreasing right lower lobe consolidation, which could reflect improving pneumonia. Continued follow- up to radiographic resolution is advised. Reviewed, dictated and finalized at location M. Impression: Decreasing right lower lobe consolidation, which could reflect improving pneumo anil. Continued follow-up to radiographic resolution is advised.
== END 2023-12-26 15:06 | disposition home or self-care (01) ==
PROVIDERS: PCP Emergency Medicine; Visit Provider Nurse Practitioner Family
DX: J18.9 Pneumonia, unspecified organism (principal)
CPT/HCPCS: 71046

== ENCOUNTER 2024-01-17 13:52 | Outpatient (CLI) | payer OTHER, SELFPAY ==
--- NOTE | ~2024-01-17 | XR_ITS ---
XR chest 2V 01/17/2024 14:14 Indication: 2 view chest Procedure: 12/26/2023 Comparison: 12/26/2023 Findings: Heart size normal. There is resolving consolidation of the right lower lobe, consistent wit h improving pneumonia. No pleural effusion. The lungs are hyperinflated which is consistent with, but not diagnostic of chronic obstructive pulmonary disease. Impression: 1: Improving right lower lobe pneumonia. Reviewed, dictated and finalized at location B. Impression: 1: Improving right lower lobe pneumonia.
== END 2024-01-17 13:53 | disposition home or self-care (01) ==
LOC: ANHIMG 13:53
PROVIDERS: PCP Emergency Medicine; Visit Provider Nurse Practitioner Family
DX: J18.9 Pneumonia, unspecified organism (principal)
CPT/HCPCS: 71046

== ENCOUNTER 2024-04-06 13:05 | Observation (INO) | payer OTHER, SELFPAY ==
[2024-04-06] VITALS (14 sets, daily range): BP systolic 108–151; BP diastolic 59–98; PULSE 60–73; RESP 13–21; TEMP 36.4–36.5; O2SAT 93–100
--- NOTE | ~2024-04-06 | XR_ITS ---
XR chest 2V DATE: 04/06/2024 14:20 INDICATION: Posterior thoracic pain. COPD. TECHNIQUE: PA and lateral views COMPARISON: 01/17/2024 PA and lateral chest FINDINGS: Bilateral hyperinflation suggesting COPD. Diminished discoid change in the right lower lung suggesting improvement of discoid atelectasis; barbie ot exclude some discoid scarring. There is focal mild infiltrate or atelectasis in the posteromedial left lower lobe, new since . No pleural effusion or pulmonary vascular congestion or pneumothorax. Normal heart size. Coronary artery stent is noted. No hilar or mediastinal enlargement is evident. Osteopenia. IMPRESSION: Diminished discoid atelectasis, right lower lung, since 01/17/2024 New focal posteromedial basilar left lower lobe infiltrate and/or atelectasis since 01/17/2024 COPD Coronary artery stent Reviewed, dictated and finalized at location A. IMPRESSION: Diminished discoid atelectasis, right lower lung, since 01/17/2024 New focal posteromedial basilar left lower lobe infiltrate and/or atelectasis s lizbet 01/17/2024 COPD Coronary artery stent
--- NOTE | 2024-04-06 13:48 | ECG_ITS ---
Test Date: 2024-04-06 13:58:36 Measurements Intervals [place] Rate: 59 P: 46 MO: 165 QRS: 80 QRSD: 84 T: 76 QT: 389 QTc: 387 Interpretive Statements SINUS BRADYCARDIA POSSIBLE RIGHT VENTRICULAR CONDUCTION DELAY [RSR (QR) IN V1/V2] ABNORMAL ECG Compared to ECG 11/11/2023 12:48:13 Sinus tachycardia no longer present Myocardial infarct finding no longer present Electronically Signed On 04-06-2024 14:22:04 CDT by Cesario Alvarado M.D.
[2024-04-06 14:08] LABS: Basophils Percent Auto 0.4 % (0.2-1.2); Eosinophils Absolute Auto 0.2 K/mm3 (0-0.3); Eosinophils Percent Auto 2.7 % (0-4.4); Hematocrit 39.6 % (42.0-52.0); Hemoglobin 13.9 g/dL (14.0-18.0); Immature Granulocyte Absolute 0.02 K/mm3 (0.00-0.031); Immature Granulocyte Percent A 0.3 % (0-0.5); Lymphocytes Absolute Auto 1.64 K/mm3 (0.9-3.2); Lymphocytes Percent Auto 22.3 % (18.3-44.2); Mean Corpuscular HGB Conc 35.1 g/dl (32-36); Mean Corpuscular Hemoglobin 33.3 pg (26-34); Mean Platelet Volume 8.3 fl (7.4-10.4); Monocytes Absolute Auto 0.9 K/mm3 (0.1-0.6); Monocytes Percent Auto 12.8 % (2.6-8.5); Neutrophils Absolute Auto 4.5 K/mm3 (1.3-6.7); Neutrophils Percent Auto 61.5 % (45.5-73.1); Platelet Count Result 169 k/mm3 (150-375); Red Blood Count 4.17 M/mm3 (4.6-6.20); Red Cell Distribution Width 12.8 % (11.5-14.5); White Blood Count 7.4 K/mm3 (4.5-10.0)
[2024-04-06 14:18] LABS: Alanine Aminotransferase 18 U/L (6-50); Albumin Level 4.4 g/dL (3.5-5.1); Alkaline Phosphatase 84 U/L (38-126); Anion Gap 10 mmol/L (4-12); Aspartate Amino Transferase 19 U/L (17-59); Bilirubin,Total 1.3 mg/dL (0.2-1.3); Blood Urea Nitrogen 11 mg/dL (9-20); Calcium 9.2 mg/dL (8.4-10.2); Carbon Dioxide 28 mmol/L (22-30); Chloride 98 mmol/L (98-107); Estimated CRCL calculation 115 ml/min; Estimated Glomerular Filt Rate > 60; Glucose 102 mg/dL (65-110); Sodium 136 mmol/L (137-145)
[2024-04-06 14:22] LABS: Prothrombin Time 13.4 Seconds (11.1-14.7)
[2024-04-06 14:23] LABS: Partial Thromboplastin Time 43.2 Seconds (22.3-36.8)
[2024-04-06 14:27] LABS: NT Pro B Type Natriuretic Pept 787 pg/mL (19.9-100)
[2024-04-06 14:30] LABS: Troponin I < 0.012 ng/mL (0.000-0.034)
--- NOTE | 2024-04-06 14:52 | ED.BACK ---
HPI - Back Pain/Injury General Chief Complaint: Back Pain/Injury Stated Complaint: upper back pain, concern for cardiac problem Time Seen by Provider: 04/06/24 13:28 History of Present Illness HPI Narrative: Patient is a 64-year-old male who presents ER with left-sided back pain. Near the scapula and spine. Aching over last day. Feels similar to when he had his AK earlier in the year. He had 3 stents. He does think the symptoms worsened with exertion. No fevers or chills or sweats. No cough. He is without nausea or vomiting. No chest pain. He had no chest pain when he had his AK either. Related Data Home Medications Medication Instructions Recorded Confirmed trazodone 100 mg tablet 100 mg PO HS 11/10/22 03/13/24 albuterol sulfate 90 mcg/actuation 2 puff inhalation Q6H PRN Wheezing 06/17/23 03/13/24 aerosol inhaler folic acid 1 mg tablet 1 mg PO DAILY 06/17/23 03/13/24 atorvastatin 80 mg tablet 80 mg PO HS 06/19/23 03/13/24 calcium 100 mg capsule 100 mg PO DAILY 06/19/23 03/13/24 multivitamin (Daily Multi-Vitamin 1 tablet PO DAILY 03/13/24 03/13/24 tablet) Allergies Allergy/AdvReac Type Severity Reaction Status Date / Time No Known Allergies Allergy Verified 04/06/24 13:16 Review of Systems Review of Systems: All systems reviewed & are unremarkable except as noted in HPI and below Constitutional: Constitutional: Reports no additional constitutional complaints ENT: Reports system reviewed and no additional complaints, except as documented Cardiovascular: Cardiovascular: Reports no additional cardiovascular complaints Respiratory: Respiratory: Reports no additional respiratory complaints Gastrointestinal: Gastrointestinal: Reports no additional gastrointestinal complaints Musculoskeletal: Musculoskeletal: Reports back pain, Denies arthralgias and Denies joint swelling [facility] Past Medical History Medical History Anxiety and depression Chronic hyponatremia COPD with chronic bronchitis and emphysema Coronary artery disease Former smoker Gastroesophageal reflux disease Heavy alcohol use Hypercholesteremia Hypertension Ischemic cardiomyopathy EF is low as 30 to 35% in June 2023; improved to 60 to 65% on echo obtained in August 2023. Osteoporosis Thoracic compression fracture Surgical History Surgical History History of coronary artery stent placement (06/2023) x3 to the LAD. History of tonsillectomy Family History Family History Father Aneurysm Other Unknown family medical history Social History Social History Social History: Surrogate medical decision maker: Valeriano Laguna, sibling. Code status: Full code. Smoking packs per day: 1.5 Smoking cigarettes per day: 30.0 Years smoked: 44 Smoking pack-years: 66.00 Smoking status: Former smoker (quit smoking 4-5 years ago) Second hand tobacco smoke exposure: No Alcohol intake: current Drinks per week: 4 Alcohol use details: wine Substance use: current Substance use type: marijuana Last use: Sunday Do You Feel Safe in your Home?: Yes Lack of Transportation: No Lack of Food: Never True Current Housing: I Have Housing Concerned About Future Housing: No Difficulty Paying Gas/Electric Bills: No Difficulty Paying for Meds: No Currently Unemployed: No Education: High School Diploma/GED Difficulty w/ Childcare or Family Care: No Living arrangements: alone Additional living arrangements comments: Lives alone in [place]. 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 Spiritual care concerns: No Exam Narrative: GENERAL: Well-appearing, well-nourished, and in no acute distress. HEAD: Normocephalic, atraumatic. ENT: Mucous membranes moist. CHEST: Clear to auscultation. No respiratory distress. HEART: Regular rate and rhythm. Normal peripheral pulses. ABDOMEN: Soft, nontender, nondistended. BACK: No reproducible midline/paraspinal tenderness of T/L. EXTREMITIES: Normal range of motion. No edema. SKIN: Warm, dry, no rash. NEURO: Alert and oriented x3. PSYCH: Normal mood and affect. Course Course Emergency Course: Admit to hospitalist service. Still having discomfort in the back. Up INR thoracic region. Given the fact that this is consistent with his previous AK he will be observed. Vital Signs Vital signs: Vital Signs Temperature 97.7 F 04/06/24 13:13 Pulse Rate 62 04/06/24 13:13 Respiratory Rate 16 04/06/24 13:13 Blood Pressure 129/88 04/06/24 13:13 Pulse Oximetry 99 04/06/24 13:13 Oxygen Delivery Room Air 04/06/24 13:13 Temperature 97.7 F 04/06/24 13:13 Pulse Rate 67 04/06/24 17:01 Respiratory Rate 20 04/06/24 17:01 Blood Pressure 111/79 04/06/24 17:01 Pulse Oximetry 93 04/06/24 17:01 Oxygen Delivery Room Air 04/06/24 13:13 MDM - Back Pain/Injury Lab Data 04/06/24 13:58 04/06/24 13:58 Labs: Lab Results 04/06/24 Range/Units 13:58 WBC 7.4 (4.5-10.0) K/mm3 RBC 4.17 L (4.6-6.20) M/mm3 Hgb 13.9 L (14.0-18.0) g/dL Hct 39.6 L (42.0-52.0) % MCV 95.0 (80-100) fl MCH 33.3 (26-34) pg MCHC 35.1 (32-36) g/dl RDW 12.8 (11.5-14.5) % Plt Count 169 (150-375) k/mm3 MPV 8.3 (7.4-10.4) fl Immature Gran % (Auto) 0.3 (0-0.5) % Neut % (Auto) 61.5 (45.5-73.1) % Lymph % (Auto) 22.3 (18.3-44.2) % Mccormick % (Auto) 12.8 H (2.6-8.5) % Eos % (Auto) 2.7 (0-4.4) % Baso % (Auto) 0.4 (0.2-1.2) % Lymph # (Auto) 1.64 (0.9-3.2) K/mm3 Mccormick # (Auto) 0.9 H (0.1-0.6) K/mm3 Eos # (Auto) 0.2 (0-0.3) K/mm3 Baso # (Auto) 0.0 (0.0-0.1) K/mm3 Abs Immat Gran (auto) 0.02 (0.00-0.031) K/mm3 Absolute Neuts (auto) 4.5 (1.3-6.7) K/mm3 Absolute Nucleated RBC 0.000 (0.0-0.012) K/mm3 Nucleated RBC % 0.0 (0.0-0.2) % PT 13.4 (11.1-14.7) Seconds INR 1.0 APTT 43.2 H (22.3-36.8) Seconds Sodium 136 L (137-145) mmol/L Potassium 4.0 (3.4-5.0) mmol/L Chloride 98 (98-107) mmol/L Carbon Dioxide 28 (22-30) mmol/L Anion Gap 10 (4-12) mmol/L BUN 11 (9-20) mg/dL Creatinine 0.60 L (0.7-1.3) mg/dL Estim Creat Clear Calc 115 ml/min Estimated GFR > 60 (59 - ) Glucose 102 (65-110) mg/dL Calcium 9.2 (8.4-10.2) mg/dL Total Bilirubin 1.3 (0.2-1.3) mg/dL AST 19 (17-59) U/L ALT 18 (6-50) U/L Alkaline Phosphatase 84 (38-126) U/L Troponin I < 0.012 (0.000-0.034) ng/mL NT-Pro-B Natriuret Pep 787 H (19.9-100) pg/mL Total Protein 8.0 (6.3-8.2) g/dL Albumin 4.4 (3.5-5.1) g/dL Imaging Data Radiologist's impression: ITS Impressions Chest X-Ray 04/06/24 14:34 IMPRESSION: Diminished discoid atelectasis, right lower lung, since 01/17/2024 New focal posteromedial basilar left lower lobe infiltrate and/or atelectasis since 01/17/2024 COPD Coronary artery stent ECG Data EKG #1: ECG completion date: 04/06/24 ECG completion time: 13:58 EKG Interpretation: bradycardia (59), sinus rhythm, no ectopy, no ST changes, normal QT and NL axis Discharge Plan Discharge Clinical Impression: Atypical chest pain Patient Disposition: Still a Patient Condition: Stable
[2024-04-06] MEDS: NITROGLYCERIN SL 0.4 MG TABLET SUBLINGUAL (16:40)
--- NOTE | 2024-04-06 16:50 | P.HP_ITS ---
H&P: HPI History of Present Illness Date/Time: 04/06/24 16:50 Chief Complaint: left sided back pain Narrative: This is a 64 year old male with a significant past medical history of anxiety, depression, chronic hyponatremia, COPD, coronary artery disease, GA back in June of this year requiring 3 stents to be placed to the LAD, former smoker, GERD, high cholesterol, hypertension, alcohol abuse, osteoporosis who presents to the hospital for evaluation of left-sided back pain. Patient states that his atypical chest pain started yesterday and he reports that the pain is in between his shoulder blades midback which is similar to how he presented back in June when he had his GA reqiring stent placement x3 to the LAD. He states when he had this pain before, he was originally sent home from the emergency room with muscle relaxers and pain medication then ended up coming back to the hospital with unrelieved back pain on 06/18/23. He was then given nitro for his pain which shown some improvement. Cardiology was consulted and He was found to have a non-STEMI. He was taken to the clinical laboratory aide and had 3 stents placed to his LAD. He was noted to have some ischemic cardiomyopathy post intervention with an EF of 30-35% which later improved on an Echo in August to 60-65%. Since that time he reports that he has been taking his medication religiously and has not missed any doses. He also denied any activity that would cause him to have back pain like lifting heavy objects. He denies any fever, chills, nausea, vomiting, diarrhea, abdominal pain, chest pain, shortness a breath, lightheadedness, dizzi ness, headache. He is followed by [facility] on an outpatient basis. Workup in the hospital included a chest x-ray which shown COPD, coronary artery stent, possible focal basilar left lower lobe infiltrate versus atelectasis. Initial labs were essentially unremarkable other than a hemoglobin of 13.9, sodium 136, troponin was negative x2, proBNP 787. EKG showed sinus bradycardia with possible right ventricular conduction delay with a rate of 59, QTC 387. Patient was given a dose of nitroglycerin while in the ED. Cardiology was consulted. Review of Systems Review of Systems: All systems reviewed & are unremarkable except as noted in HPI and below Constitutional: Constitutional: Reports as per HPI and Reports no additional constitutional complaints Eyes: Eyes: Reports as per HPI and Reports no additional eye complaints ENT: Reports system reviewed and no additional complaints, except as documented and Reports as per HPI Cardiovascular: Cardiovascular: Reports as per HPI and Reports no additional cardiovascular complaints Respiratory: Respiratory: Reports as per HPI and Reports no additional respiratory complaints Gastrointestinal: Gastrointestinal: Reports as per HPI and Reports no addition al gastrointestinal complaints Genitourinary: Genitourinary: Reports no additional male genitourinary complaints and Reports as per HPI Musculoskeletal: Musculoskeletal: Reports no additional musculoskeletal complaints and Reports as per HPI Integumentary/Breasts: Skin/Breast: Reports system reviewed and no additional complaints, except as docu and Reports as per HPI Neurologic: Reports system reviewed and no additional complaints, except as documented and Reports as per HPI Psychiatric: Psychiatric: Reports no additional psychiatric complaints and Reports as per HPI FORMERLY [facility] Past Medical History Medical History Anxiety and depression Chronic hyponatremia COPD with chronic bronchitis and emphysema Coronary artery disease Former smoker Gastroesophageal reflux disease Heavy alcohol use Hypercholesteremia Hypertension Ischemic cardiomyopathy EF is low as 30 to 35% in June 2023; improved to 60 to 65% on echo obtained in August 2023. Osteoporosis Thoracic compression fracture Surgical History Surgical History History of coronary artery stent placement (06/2023) x3 to the LAD. History of tonsillectomy Family History Family History Father Aneurysm Grandparent Black lung Social History Social History Social History: Surrogate medical decision maker: Valeriano Laguna, sibling. Code status: Full code. Smoking packs per day: 1.5 Smoking cigarettes per day: 30.0 Years smoked: 42 Smoking pack-years: 63.00 Smoking status: Former smoker Tobacco type: cigarettes Second hand tobacco smoke exposure: No Alcohol intake: current Drinks per week: 34 Alcohol use details: wine Substance use: never Substance use type: marijuana Last use: Sunday Do You Feel Safe in your Home?: Yes Lack of Transportation: No Lack of Food: Never True Current Housing: I Have Housing Concerned About Future Housing: No Difficulty Paying Gas/Electric Bills: No Difficulty Paying for Meds: No Currently Unemployed: No Education: Master's Degree or Higher Difficulty w/ Childcare or Family Care: No Living arrangements: alone Additional living arrangements comments: Lives alone in [place]. 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 Spiritual care concerns: No Meds Home Medications and Allergies Home Medications Medication Instructions Recorded Confirmed Type trazodone 100 mg tablet 100 mg PO HS 11/10/22 04/06/24 History albuterol sulfate 90 mcg/actuation 2 puff inhalation Q6H PRN Wheezing 06/17/23 04/06/24 History aerosol inhaler folic acid 1 mg tablet 1 mg PO DAILY 06/17/23 04/06/24 History aspirin 81 mg tablet,delayed 81 mg PO DAILY@0800 #90 tabs 06/19/23 04/06/24 Rx release atorvastatin 80 mg tablet 80 mg PO HS 06/19/23 04/06/24 History calcium 100 mg capsule 100 mg PO DAILY 06/19/23 04/06/24 History ticagrelor 90 mg tablet (Brilinta) 90 mg PO Q12HR #180 tabs 06/19/23 04/06/24 Rx furosemide 20 mg tablet 20 mg PO DAILY #90 tabs 06/21/23 04/06/24 Rx losartan 25 mg tablet 12.5 mg PO DAILY #90 tabs 11/21/23 04/06/24 Rx metoprolol succinate 100 mg 100 mg PO DAILY #30 tabs 11/21/23 04/06/24 Rx tablet,extended release 24 hr alendronate 70 mg tablet 70 mg PO WEEKLY #52 tabs 11/29/23 04/06/24 Rx omeprazole 20 mg capsule,delayed 20 mg PO DAILY #90 caps 11/29/23 04/06/24 Rx release Trelegy Ellipta 100 mcg-62.5 1 inh inhalation QAM #60 ea 03/06/24 04/06/24 Rx mcg-25 mcg powder for inhalation ([id number]) multivitamin (Daily Multi-Vitamin 1 tablet PO DAILY 03/13/24 04/06/24 History tablet) cholecalciferol (vitamin D3) 125 125 mcg PO DAILY #90 caps 03/17/24 04/06/24 Rx mcg (5,000 unit) capsule Allergies Allergy/AdvReac Type Severity Reaction Status Date / Time No Known Allergies Allergy Verified 04/06/24 13:16 Vital Signs Vital Signs - 24 hr 04/06/24 13:13 04/06/24 13:14 04/06/24 13:16 Temperature 97.7 F Pulse Rate 62 64 60 Respiratory Rate 16 17 19 Blood Pressure 129/88 129/88 125/74 Pulse Oximetry 99 100 99 Oxygen Delivery Room Air 04/06/24 13:32 04/06/24 16:41 04/06/24 13:47 Temperature Pulse Rate 68 66 66 Respiratory Rate 21 H 16 14 Blood Pressure 151/87 H 128/78 134/78 Pulse Oximetry 100 97 98 Oxygen Delivery 04/06/24 14:02 04/06/24 14:26 Temperature Pulse Rate 64 67 Respiratory Rate 13 20 Blood Pressure 129/74 129/98 H Pulse Oximetry 97 97 Oxygen Delivery Exam Narrative: General: In no acute distress, well nourished Head: atraumatic, no encephalopathy Eyes: EOMI, PERRLA, sclera clear ENT: moist mucous membranes, nasal passages clear Neck: supple, no JVD, no adenopathy, trachea midline Cardiac: Normal S1 and S2. Distant heart sounds. No murmur, gallops or friction rubs, peripheral pulses intact. Respiratory: Lungs clear to auscultation, no adventitious lung sounds, currently on room air Gastrointestinal: soft, non-distended, non-tender, normoactive bowel sounds. : voiding without difficulty. Extremities: moves all extremities well, no edema, good ROM, strength 5/5 Skin: clean, dry, intact. No wounds or lesions. Neuro: Alert and oriented x4, cranial nerves intact, no neuro deficits. Psych: normal mood, normal affect, interactive H&P: Results Labs Labs: Short CBC 04/06/24 Range/Units 13:58 WBC 7.4 (4.5-10.0) K/mm3 Hgb 13.9 L (14.0-18.0) g/dL Hct 39.6 L (42.0-52.0) % Plt Count 169 (150-375) k/mm3 BMP 04/06/24 13:58 Sodium 136 L Potassium 4.0 Chloride 98 Carbon Dioxide 28 BUN 11 Creatinine 0.60 L Glucose 102 Calcium 9.2 Cardiac Enzymes 04/06/24 Range/Units 13:58 Troponin I < 0.012 (0.000-0.034) ng/mL Liver Function 04/06/24 Range/Units 13:58 Total Bilirubin 1.3 (0.2-1.3) mg/dL AST 19 (17-59) U/L ALT 18 (6-50) U/L Alkaline Phosphatase 84 (38-126) U/L Albumin 4.4 (3.5-5.1) g/dL Imaging Chest x-ray: Radiologist's impression: XR chest 2V DATE: 04/06/2024 14:20 INDICATION: Posterior thoracic pain. COPD. TECHNIQUE: PA and lateral views COMPARISON: 01/17/2024 PA and lateral chest FINDINGS: Bilateral hyperinflation suggesting COPD. Diminished discoid change in the right lower lung suggesting improvement of discoid atelectasis; cannot exclude some discoid scarring. There is focal mild infiltrate or atelectasis in the posteromedial left lower lobe, new since 01/17/2024. No pleural effusion or pulmonary vascular congestion or pneumothorax. Normal heart size. Coronary artery stent is noted. No hilar or mediastinal enlargement is evident. Osteopenia. IMPRESSION: Diminished discoid atelectasis, right lower lung, since 01/17/2024 New focal posteromedial basilar left lower lobe infiltrate and/or atelectasis since 01/17/2024 COPD Coronary artery stent Reviewed, dictated and finalized at location A. Assessment and Plan Assessment and plan (1) Atypical chest pain: Code(s): R07.89 - Other chest pain Status: Acute Assessment and Plan: Reports pain is similar to when he had his heart attack back in June of this year. During that time, he had 3 stents placed to the LAD with some ischemic cardiomyopathy post intervention with an EF of 30-35% which later improved to 60-65% by August 2023. * Nitroglycerin ordered for pain * Continue Brilinta, atorvastatin, and aspirin * Cardiology consulted * Trend troponins (2) Ischemic cardiomyopathy: Code(s): I25.5 - Ischemic cardiomyopathy Status: Acute Assessment and Plan: * Continue lasix, metoprolol tonight. Hold losartan until tomorrow due to lower than normal blood pressure * Last Echo shown an EF of 60-65% back in August of this year * Patient of Dr. Freedman (3) CAD (coronary artery disease): Code(s): I25.10 - Atherosclerotic heart disease of [place] coronary artery without angina pectoris Status: Chronic Assessment and Plan: * continue aspirin, atorvastatin, and Brilinta (4) COPD with chronic bronchitis and emphysema: Code(s): J44.89 - Other specified chronic obstructive pulmonary disease; J43.9 - Emphysema, unspecified Status: Chronic Assessment and Plan: * Former smoker x44 years 1.5 pack per day, quit 5 years ago * Continue Trelegy Ellipta inhaler (5) Hypertension: Code(s): I10 - Essential (primary) hypertension Status: Chronic Assessment and Plan: * blood pressures ranging 108/59-111/79 * Losartan restarted for morning starting tomorrow (6) Gastroesophageal reflux disease: Code(s): K21.9 - Gastro-esophageal reflux disease without esophagitis Status: Chronic Assessment and Plan: * Start protonix Quality VTE Prophylaxis VTE prophylaxis: pharmacologic ordered Hospitalist MIPS Advance Care Plan I have confirmed that the patient's Advanced Care Plan is present, code status is documented, or surrogate decision maker is listed in patient medical record.: Yes Medication Reconciliation I have utilized all available resources to obtain, update and review the patients current medications (includes all prescriptions, OTC, herbals, cannabis, and nutritional supplements).: Yes
--- NOTE | 2024-04-06 16:50 | PC.NURSE ---
1647 pt states pain is 2/10 and second dose of nitro administered sublingually
--- NOTE | 2024-04-06 17:00 | PC.NURSE ---
1700 pt reporting pain as 2/10 third dose of nitro administered sublingually
[2024-04-06 17:24] LABS: Troponin I < 0.012 ng/mL (0.000-0.034)
--- NOTE | 2024-04-06 18:41 | ADMGEN ---
This patient, Edgar Laguna, was admitted to IMU Room 214-01 on 04/06/24 at 1818. Patient/family oriented to hospital policies and general routines including ID bracelet, bed and alarms, visiting hours, pain management, procedures, bathroom and other care routines, personal items, smoking policy, room service/diet, and visiting hours. Information on how to activate the Rapid Response Team has been discussed. Patient/Family are encouraged to report perceived risks to care and to ask questions if they do not understand what they are told or what they should do.
[2024-04-06] MEDS: TICAGRELOR 90 MG TABLET PO (21:09)
[2024-04-06] MEDS: METOPROLOL SUCCINATE EXT REL 100 MG TABCR PO (21:09)
[2024-04-06] MEDS: PANTOPRAZOLE 40 MG TABLET PO (21:10)
[2024-04-06] MEDS: FUROSEMIDE 20 MG TABLET PO (21:10)
[2024-04-06] MEDS: traZODone HCL 50 MG TABLET 100 MG PO (21:10)
[2024-04-06] MEDS: ASPIRIN 81 MG ENTERIC TABLET PO (21:10)
[2024-04-06] MEDS: ATORVASTATIN 40 MG TABLET 80 MG PO (21:11)
[2024-04-06 21:30] LABS: Troponin I < 0.012 ng/mL (0.000-0.034)
[2024-04-07] VITALS (12 sets, daily range): BP systolic 96–117; BP diastolic 53–76; PULSE 63–72; RESP 18–22; TEMP 36.4–36.7; O2SAT 93–96
--- NOTE | 2024-04-07 | ECHO_ITS ---
Patient Info Name: Edgar Laguna Age: 64 years : 1960 Gender: Male Ht: 71 in Wt: 160 lbs BSA: 1.91 m2 HR: 65 bpm BP: 103 / 60 mmHg Heart Rhythm: Sinus Rhythm Technical Quality: Good Exam Date: 04/07/2024 3:16 PM Exam Location: Echo Lab Patient Status: Outpatient Admit Date: 04/06/2024 Staff Ordering Physician: Zion Freedman DO Air Carrier Operations Inspector: Lucia Rodriguez RDCS Attending Provider: Elkin Coulter MD Referring Physician: Tano MOSER; Exam Type: CA echo doppler color flow Study Info Indications R07.9 - Chest pain, unspecified Complete two-dimensional, color flow and Doppler transthoracic echocardiogram is performed. Summary 1. Complete two-dimensional, color flow and Doppler transthoracic echocardiogram is performed. 2. Left ventricular chamber dimension is normal. 3. Left ventricular systolic function is normal, estimated at 60-65%. 4. The left ventricular diastolic function is grade I diastolic dysfunction. 5. E/e' 15 is elevated. 6. Left atrial chamber dimension is mildly enlarged. 7. There is mild aortic valve sclerosis. 8. The mitral valve has mildly thickened leaflets. 9. There is mild to moderate mitral valve stenosis with valve are of 1.1 cm2 by continuity equation and mean gradient of 4 mmHg. 10. There is mild to moderate mitral valve regurgitation. 11. No pulmonary hypertension, estimated pulmonary arterial systolic pressure is 19 mmHg. Left Ventricle E/e' 15 is elevated. Left ventricular chamber dimension is normal. Left ventricular systolic function is normal, estimated at 60-65%. The left ventricular diastolic function is grade I diastolic dysfunction. Right Ventricle Right ventricular systolic function is normal and with normal TAPSE 2.1 cm. Right ventricular chamber dimension is normal. Left Atria Left atrial chamber dimension is mildly enlarged. Right Atria Right atrial chamber dimension is normal. Aortic Valve The aortic valve is trileaflet. There is mild aortic valve sclerosis. There is no aortic valve stenosis. There is no aortic valve regurgitation. Pulmonic Valve There is no pulmonic regurgitation. Mitral Valve The mitral valve has mildly thickened leaflets. There is mild to moderate mitral valve stenosis with valve are of 1.1 cm2 by continuity equation and mean gradient of 4 mmHg. There is mild to moderate mitral valve regurgitation. Tricuspid Valve There is no tricuspid valve regurgitation. No pulmonary hypertension, estimated pulmonary arterial systolic pressure is 19 mmHg. Pericardium/Pleural There is no pericardial effusion. Inferior Vena Cava Normal inferior vena cava with >50% collapse upon inspiration consistent with normal right atrial pressure, 5 mmHg. Aorta The aortic root size at the sinus of Valsalva is normal. Left Ventricular Outflow Tract Name Value Normal LVOT 2D LVOT Diameter 2.0 cm LVOT Doppler LVOT Peak Gradient 3 mmHg LVOT Mean Gradient 2 mmHg LVOT VTI 18 cm LVOT VTI/AV VTI Ratio 0.7 LVOT Stroke Volume 59 ml LVOT CO 3.5 l/min LVOT CI 1.8 l/min/m2 Pulmonic Valve Name Value Normal RVOT Doppler RVOT Peak Gradient 1 mmHg PV Doppler PV Peak Gradient 3 mmHg Mitral Valve Name Value Normal MV Doppler MV Peak Gradient 8 mmHg MV Mean Gradient 4 mmHg MV Decel [place] 391 cm/s2 MV PHT 98 ms MV Area (PHT) 2.2 cm2 4.0-5.0 MV Area (Cont Eq VTI) 1.1 cm2 MV Regurgitation Doppler MR Peak Gradient 122 mmHg MV Diastolic Function MV E Peak Velocity 132 cm/s MV A Peak Velocity 138 cm/s MV E/A 1.0 MV Decel Time 338 ms MV Annular TDI MV E/e' (Septal) 19.9 <=8.0 MV E/e' (Lateral) 12.7 <=8.0 MV E/e' (Average) 16.3 Tricuspid Valve Name Value Normal TV Regurgitation Doppler TR Peak Velocity 188 cm/s TR Peak Gradient 14 mmHg Estimated PAP/RSVP RA Pressure 5 mmHg <=5 PA Systolic Pressure 19 mmHg <36 RV Systolic Pressure 19 mmHg <36 Aorta Name Value Normal Ascending Aorta Ao Root Diameter (MM) 3.1 cm Ao Root Diam Index (MM) 1.6 cm/m2 Aortic Valve Name Value Normal AV Doppler AV Peak Velocity 132 cm/s AV Peak Gradient 7 mmHg AV Mean Gradient 4 mmHg AV VTI 24 cm AV Area (Cont Eq VTI) 2.4 cm2 >=3.0 AV Area (Cont Eq Omid) 2.3 cm2 AV Regurgitation 2D LVOT Area 3.3 cm2 Ventricles Name Value Normal LV Dimensions 2D/MM IVS Diastolic Thickness (2D) 0.7 cm 0.6-1.0 LVID Diastole (2D) 5.4 cm 4.2-5.8 LVIW Diastolic Thickness (2D) 0.7 cm 0.6-1.0 LVID Systole (2D) 3.5 cm 2.5-4.0 LVOT Diameter 2.0 cm LV Mass (2D Cubed) 133.41 g 88.00-224.00 LV Mass Index (2D Cubed) 70 g/m2 49-115 Relative Wall Thickness (2D) 0.25 LV Fractional Shortening/Ejection Fraction 2D/MM LV Fractional Shortening (2D) 35 % 25-43 LV EF (2D Teicholz) 64 % 52-72 LV Diastolic Volume (4C MOD) 92 ml LV EF (4C MOD) 60 % LV Diastolic Volume (2C MOD) 59 ml LV EF (2C MOD) 58 % LV Diastolic Volume (BP MOD) 76 ml 62-150 LV Diastolic Volume Index (BP MOD) 40 ml/m2 34-74 LV Systolic Volume (BP MOD) 30 ml 21-61 LV Systolic Volume Index (BP MOD) 16 ml/m2 11-31 LV EF (BP MOD) 60 % 52-72 LV Diastolic Length (4C) 8.2 cm LV Systolic Length (4C) 6.8 cm LV Stroke Volume (4C MOD) 55 ml Atria Name Value Normal LA Dimensions LA Dimension (MM) 4.7 cm 3.0-4.1 LA Volume (4C A-L) 49 ml LA Volume (BP A-L) 51 ml RA Dimensions RA Area (4C) 13.5 cm2 <=18.0 Report Signatures
[2024-04-07 05:13] LABS: Basophils Percent Auto 0.5 % (0.2-1.2); Eosinophils Absolute Auto 0.2 K/mm3 (0-0.3); Eosinophils Percent Auto 2.4 % (0-4.4); Hematocrit 39.1 % (42.0-52.0); Immature Granulocyte Absolute 0.14 K/mm3 (0.00-0.031); Immature Granulocyte Percent A 1.7 % (0-0.5); Lymphocytes Absolute Auto 1.89 K/mm3 (0.9-3.2); Lymphocytes Percent Auto 22.9 % (18.3-44.2); Mean Corpuscular HGB Conc 35.8 g/dl (32-36); Mean Corpuscular Hemoglobin 33.5 pg (26-34); Mean Corpuscular Volume 93.5 fl (80-100); Mean Platelet Volume 8.5 fl (7.4-10.4); Monocytes Absolute Auto 1.1 K/mm3 (0.1-0.6); Monocytes Percent Auto 13.6 % (2.6-8.5); Neutrophils Absolute Auto 4.9 K/mm3 (1.3-6.7); Neutrophils Percent Auto 58.9 % (45.5-73.1); Platelet Count Result 190 k/mm3 (150-375); Red Blood Count 4.18 M/mm3 (4.6-6.20); Red Cell Distribution Width 12.6 % (11.5-14.5); White Blood Count 8.2 K/mm3 (4.5-10.0)
[2024-04-07 05:29] LABS: Alanine Aminotransferase 18 U/L (6-50); Albumin Level 4.1 g/dL (3.5-5.1); Alkaline Phosphatase 91 U/L (38-126); Anion Gap 7 mmol/L (4-12); Aspartate Amino Transferase 20 U/L (17-59); Bilirubin,Total 1.2 mg/dL (0.2-1.3); Blood Urea Nitrogen 12 mg/dL (9-20); Calcium 8.9 mg/dL (8.4-10.2); Carbon Dioxide 26 mmol/L (22-30); Chloride 99 mmol/L (98-107); Estimated CRCL calculation 111 ml/min; Estimated Glomerular Filt Rate > 60; Glucose 104 mg/dL (65-110); Potassium 3.7 mmol/L (3.4-5.0); Sodium 132 mmol/L (137-145)
[2024-04-07] MEDS: FLUTICASONE/UMECLIDIN/VILANTER 100-62.5-25 MCG ELLIPTA 1 PUFF INHALATION (07:08)
--- NOTE | 2024-04-07 08:06 | P.CONCA_ITS ---
Assessment and Plan Assessment and plan (1) Atypical chest pain: Code(s): R07.89 - Other chest pain Status: Acute Assessment and Plan: Probably musculoskeletal back pain as it is reproducible by palpation. He has been r/o for ND by serial troponin and EKG. Obtain echo. If OK, may d/c home from cardiology standpoint. (2) Coronary artery disease: Code(s): I25.10 - Atherosclerotic heart disease of [place] coronary artery without angina pectoris Status: Acute Assessment and Plan: Stable. Continue dual antiplatelets uninterrupted. (3) Hypercholesteremia: Code(s): E78.00 - Pure hypercholesterolemia, unspecified Status: Acute Assessment and Plan: On Atorvastatin. (4) Ischemic cardiomyopathy: Code(s): I25.5 - Ischemic cardiomyopathy Status: Acute Assessment and Plan: Resolved. History of Present Illness History of Present Illness Consult date/time: 04/07/24 08:06 Reason For Visit: Atypical Chest Pain Narrative: 64 yr old man who is my regular cardiology patient presents to ER with chest pain. He has a history of CAD, ICM, hypertension, dyslipidemia, COPD, alcohol abuse, former smoking. Reports that 2 days ago pain started in mid upper back and did not go away yesterday so he came to ER. Currently it is 2/10 pain that is reproducible by palpation. He is able to walk a couple of blocks. He drinks a quart of wine a night. Denies chest pain, sob, orthopnea, PND, edema, dizziness, palpitations. Cardiovascular Procedures Environmental Health Technician:: 06/18/23 [facility] with Dr. Bell: LM 40% unstable, LAD prox 90%, mid 90%, LCx ostial- prox 50%, RCA prox 50%, mid 50%; PCI with PARMINDER to LM into LAD, 2 stents in prox to mid LAD. Echo/MUGA:: 08/20/23 Echo: EF 60-65%, mod LAE, diastolic function indeterminate, mild posterior MAC, mod MR, mild-mod TR, RVSP 41 mmHg. 06/18/23 Echo: EF 30-35%, akinetic apex, mild-mod LVH, grade I diastolic dysfunction, mild MR. Electrophysiology:: 11/21/23 26 days event monitor: Sinus rhythm, HR range 47-120 bpm; average 67 bpm; 47 bpm was on 11/29/23 at 05:48; 1% PAC, 2% PVC. 11/11/23 EKG: Sinus tachycardia at 102, consider inferior infarct. 10/19/23 EKG: Sinus bradycardia at 56 bpm. 06/19/23 EKG: Sinus rhythm, anteroseptal infarct, T wave abnormality- consider ant/high lat ischemia. Stress Tests:: 11/11/23 CXR: RLL pneumonia. Review of Systems Review of Systems: All systems reviewed & are unremarkable except as noted in HPI and below Constitutional: Constitutional: Reports as per HPI, Denies chills and Denies fever(s) Cardiovascular: Cardiovascular: Reports as per HPI, Denies chest pain and Denies irregular heart rhythm Respiratory: Respiratory: Reports as per HPI and Denies dyspnea Gastrointestinal: Gastrointestinal: Reports as per HPI and Denies abdominal pain Genitourinary: Genitourinary: Reports as per HPI and Denies dysuria Musculoskeletal: Musculoskeletal: Reports as per HPI and Reports back pain Neurologic: Reports as per HPI, Denies dizziness and Denies syncope [facility] Past Medical History Medical History Anxiety and depression Chronic hyponatremia COPD with chronic bronchitis and emphysema Coronary artery disease Former smoker Gastroesophageal reflux disease Heavy alcohol use Hypercholesteremia Hypertension Ischemic cardiomyopathy EF is low as 30 to 35% in June 2023; improved to 60 to 65% on echo obtained in August 2023. Osteoporosis Thoracic compression fracture Surgical History Surgical History History of coronary artery stent placement (06/2023) x3 to the LAD. History of tonsillectomy Family History Family History Father Aneurysm Grandparent Black lung Social History Social History Social History: Surrogate medical decision maker: Valeriano Laguna, sibling. Code status: Full code. Smoking packs per day: 1.5 Smoking cigarettes per day: 30.0 Years smoked: 42 Smoking pack-years: 63.00 Smoking status: Former smoker Tobacco type: cigarettes Second hand tobacco smoke exposure: No Alcohol intake: current Drinks per week: 34 Alcohol use details: wine Substance use: never Substance use type: marijuana Last use: Sunday Do You Feel Safe in your Home?: Yes Lack of Transportation: No Lack of Food: Never True Current Housing: I Have Housing Concerned About Future Housing: No Difficulty Paying Gas/Electric Bills: No Difficulty Paying for Meds: No Currently Unemployed: No Education: Master's Degree or Higher Difficulty w/ Childcare or Family Care: No Living arrangements: alone Additional living arrangements comments: Lives alone in [place]. 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 Spiritual care concerns: No Meds Home Medications and Allergies Home Medications Medication Instructions Recorded Confirmed Type trazodone 100 mg tablet 100 mg PO HS 11/10/22 04/06/24 History albuterol sulfate 90 mcg/actuation 2 puff inhalation Q6H PRN Wheezing 06/17/23 04/06/24 History aerosol inhaler folic acid 1 mg tablet 1 mg PO DAILY 06/17/23 04/06/24 History aspirin 81 mg tablet,delayed 81 mg PO DAILY@0800 #90 tabs 06/19/23 04/06/24 Rx release atorvastatin 80 mg tablet 80 mg PO HS 06/19/23 04/06/24 History calcium 100 mg capsule 100 mg PO DAILY 06/19/23 04/06/24 History ticagrelor 90 mg tablet (Brilinta) 90 mg PO Q12HR #180 tabs 06/19/23 04/06/24 Rx furosemide 20 mg tablet 20 mg PO DAILY #90 tabs 06/21/23 04/06/24 Rx losartan 25 mg tablet 12.5 mg PO DAILY #90 tabs 11/21/23 04/06/24 Rx metoprolol succinate 100 mg 100 mg PO DAILY #30 tabs 11/21/23 04/06/24 Rx tablet,extended release 24 hr alendronate 70 mg tablet 70 mg PO WEEKLY #52 tabs 11/29/23 04/06/24 Rx omeprazole 20 mg capsule,delayed 20 mg PO DAILY #90 caps 11/29/23 04/06/24 Rx release Trelegy Ellipta 100 mcg-62.5 1 inh inhalation QAM #60 ea 03/06/24 04/06/24 Rx mcg-25 mcg powder for inhalation (dimcjwjrjhe-tzkazluoh-amjrlkfy) multivitamin (Daily Multi-Vitamin 1 tablet PO DAILY 03/13/24 04/06/24 History tablet) cholecalciferol (vitamin D3) 125 125 mcg PO DAILY #90 caps 03/17/24 04/06/24 Rx mcg (5,000 unit) capsule Allergies Allergy/AdvReac Type Severity Reaction Status Date / Time No Known Allergies Allergy Verified 04/06/24 13:16 Vital Signs Vital Signs - 24 hr 04/06/24 13:13 04/06/24 13:14 04/06/24 13:16 Temperature 97.7 F Pulse Rate 62 64 60 Respiratory Rate 16 17 19 Blood Pressure 129/88 129/88 125/74 Pulse Oximetry 99 100 99 Oxygen Delivery Room Air 04/06/24 13:32 04/06/24 16:41 04/06/24 13:47 Temperature Pulse Rate 68 66 66 Respiratory Rate 21 H 16 14 Blood Pressure 151/87 H 128/78 134/78 Pulse Oximetry 100 97 98 Oxygen Delivery 04/06/24 14:02 04/06/24 14:26 04/06/24 16:41 Temperature Pulse Rate 64 67 66 Respiratory Rate 13 20 20 Blood Pressure 129/74 129/98 H 128/78 Pulse Oximetry 97 97 97 Oxygen Delivery 04/06/24 16:46 04/06/24 17:01 04/06/24 18:19 Temperature Pulse Rate 68 67 73 Respiratory Rate 17 20 Blood Pressure 115/74 111/79 Pulse Oximetry 94 93 Oxygen Delivery 04/06/24 20:00 04/06/24 21:09 04/06/24 20:00 Temperature 97.6 F Pulse Rate 69 68 Respiratory Rate 20 Blood Pressure 108/59 L Pulse Oximetry 95 Oxygen Delivery Room Air 04/06/24 20:00 04/06/24 22:00 04/07/24 00:00 Temperature 97.6 F Pulse Rate 65 71 69 Respiratory Rate 20 Blood Pressure 96/60 L Pulse Oximetry 93 Oxygen Delivery 04/07/24 00:00 04/07/24 02:00 04/07/24 00:00 Temperature Pulse Rate 68 72 Respiratory Rate Blood Pressure Pulse Oximetry Oxygen Delivery Room Air 04/07/24 04:25 04/07/24 04:00 04/07/24 06:00 Temperature 97.7 F Pulse Rate 69 72 68 Respiratory Rate 18 Blood Pressure 103/53 L Pulse Oximetry 94 Oxygen Delivery 04/07/24 04:00 04/07/24 07:03 04/07/24 07:03 Temperature Pulse Rate 63 63 Respiratory Rate 18 18 Blood Pressure Pulse Oximetry 95 Oxygen Delivery Room Air Room Air 04/07/24 07:57 Temperature 98.1 F Pulse Rate 65 Respiratory Rate 22 H Blood Pressure 103/60 Pulse Oximetry 96 Oxygen Delivery Exam Const: General: cooperative, healthy appearing and comfortable Resp: Auscultation: clear to auscultation bilaterally, no crackles, no rales, no rhonchi and no wheezes Cardio: Rate: regular rate Rhythm: regular rhythm Heart sounds: no murmurs Peripheral pulses: dorsalis pedis present GI: GI Palp: No abdominal tenderness and Yes Soft to palpation Neuro: General: oriented to person, oriented to place and oriented to time Extrem: Right lower extremity: no edema Left lower extremity: no edema Results Labs and Meds 04/07/24 04:47 04/07/24 04:47 Lab results: Cardiac Enzymes 04/06/24 04/06/24 04/06/24 Range/Units 13:58 16:59 20:56 AST 19 (17-59) U/L Troponin I < 0.012 < 0.012 < 0.012 (0.000-0.034) ng/mL 04/07/24 Range/Units 04:47 AST 20 (17-59) U/L Troponin I (0.000-0.034) ng/mL Coagulation 04/06/24 Range/Units 13:58 PT 13.4 (11.1-14.7) Seconds APTT 43.2 H (22.3-36.8) Seconds CBC 04/06/24 04/07/24 Range/Units 13:58 04:47 WBC 7.4 8.2 (4.5-10.0) K/mm3 RBC 4.17 L 4.18 L (4.6-6.20) M/mm3 Hgb 13.9 L 14.0 (14.0-18.0) g/dL Hct 39.6 L 39.1 L (42.0-52.0) % Plt Count 169 190 (150-375) k/mm3 Lymph # (Auto) 1.64 1.89 (0.9-3.2) K/mm3 [place] # (Auto) 0.9 H 1.1 H (0.1-0.6) K/mm3 Eos # (Auto) 0.2 0.2 (0-0.3) K/mm3 Baso # (Auto) 0.0 0.0 (0.0-0.1) K/mm3 Comprehensive Metabolic Panel 04/06/24 04/07/24 Range/Units 13:58 04:47 Sodium 136 L 132 L (137-145) mmol/L Potassium 4.0 3.7 (3.4-5.0) mmol/L Chloride 98 99 (98-107) mmol/L Carbon Dioxide 28 26 (22-30) mmol/L BUN 11 12 (9-20) mg/dL Creatinine 0.60 L 0.60 L (0.7-1.3) mg/dL Glucose 102 104 (65-110) mg/dL Calcium 9.2 8.9 (8.4-10.2) mg/dL AST 19 20 (17-59) U/L ALT 18 18 (6-50) U/L Alkaline Phosphatase 84 91 (38-126) U/L Total Protein 8.0 8.0 (6.3-8.2) g/dL Albumin 4.4 4.1 (3.5-5.1) g/dL Intake and Output 04/06/24 04/07/24 04/07/24 23:59 07:59 15:59 Intake Total 500 Balance 500 Intake: Oral 500 Other: # Unmeasured Voids 3 Patient Weight 04/07/24 23:59 Weight 72.6 kg
[2024-04-07] MEDS: TICAGRELOR 90 MG TABLET PO (09:47)
[2024-04-07] MEDS: MULTIVITAMINS THERAPEUTIC TAB (*BKC) 1 TABLET PO (09:47)
--- NOTE | 2024-04-07 15:02 | P.DS_ITS ---
DS: Admitting Diagnosis Discharge Date 04/07/24 Admitting Diagnosis Left sided back pain DS: Discharge Diagnosis Discharge Diagnosis (1) Atypical chest pain: Code(s): R07.89 - Other chest pain Status: Acute (2) Ischemic cardiomyopathy: Code(s): I25.5 - Ischemic cardiomyopathy Status: Acute (3) CAD (coronary artery disease): Code(s): I25.10 - Atherosclerotic heart disease of [place] coronary artery without angina pectoris Status: Chronic (4) COPD with chronic bronchitis and emphysema: Code(s): J44.89 - Other specified chronic obstructive pulmonary disease; J43.9 - Emphysema, unspecified Status: Chronic (5) Hypertension: Code(s): I10 - Essential (primary) hypertension Status: Chronic (6) Gastroesophageal reflux disease: Code(s): K21.9 - Gastro-esophageal reflux disease without esophagitis Status: Chronic DS: Summary Hospital Course Reason for hospitalization: 64 year old male with anxiety, depression, chronic hyponatremia, COPD, CAD with IL in June 2023 requiring 3 stents to the LAD, former smoker, GERD, HLD, HTN, alcohol abuse, and osteoporosis who presents to the hospital for evaluation of left-sided back pain. Please see H&P for details. Hospital Course: Patient presents with back pain concerning for anginal equivalent. Workup in the ED included a chest x-ray which shown COPD, coronary artery stent, and possible focal basilar left lower lobe infiltrate versus atelectasis. No pleuritic chest/back pain, fever or elevated WBC. Has chronic cough usually dry. Initial labs were essentially unremarkable other than a hemoglobin of 13.9, sodium 136, troponin was negative x3, proBNP 787. EKG showed sinus bradycardia with possible right ventricular conduction delay with a rate of 59, QTC 387. Patient was given a dose of nitroglycerin while in the ED. Cardiology was consulted but felt this was musculoskeletal pain. Echo ordered and is pending. It was felt clinically less likely he had PNA. He overall did well and was able to be discharged home on 04/07/24. Status at Discharge Cognitive/behavioral status at discharge: stable Time Spent with Patient Time attestation: Total time spent providing and/or coordinating discharge services: 34 minutes Time spent: Greater than 30 minutes Exam Narrative: AF 97.7 117/76 64 18 96% ra Gen - NARD Chest - clear, distant BS CV - RRR S1/S2. Tele showing no significant dysrhythmias Abd - Soft, NT/ND, Positive BS Ext - No pedal edema Psych - Nml mood and affect Skin - Warm and dry DS: Data Data Completed and Pending Labs on day of discharge: Labs from last 24 hours 04/07/24 04/06/24 04/06/24 04:47 20:56 16:59 WBC 8.2 RBC 4.18 L Hgb 14.0 Hct 39.1 L MCV 93.5 MCH 33.5 MCHC 35.8 RDW 12.6 Plt Count 190 MPV 8.5 Immature Gran % (Auto) 1.7 H Neut % (Auto) 58.9 Lymph % (Auto) 22.9 [place] % (Auto) 13.6 H Eos % (Auto) 2.4 Baso % (Auto) 0.5 Lymph # (Auto) 1.89 [place] # (Auto) 1.1 H Eos # (Auto) 0.2 Baso # (Auto) 0.0 Abs Immat Gran (auto) 0.14 H Absolute Neuts (auto) 4.9 Absolute Nucleated RBC 0.000 Nucleated RBC % 0.0 Sodium 132 L Potassium 3.7 Chloride 99 Carbon Dioxide 26 Anion Gap 7 BUN 12 Creatinine 0.60 L Estim Creat Clear Calc 111 Estimated GFR > 60 Glucose 104 Calcium 8.9 Total Bilirubin 1.2 AST 20 ALT 18 Alkaline Phosphatase 91 Troponin I < 0.012 < 0.012 Total Protein 8.0 Albumin 4.1 Discharge Plan Discharge Attending physician on discharge: Elkin Coulter Consulting providers: Brice Crook; Zion Freedman Discharging Clinician: Elkin Coulter Anticipated Discharge Date/Time: 04/07/24 15:15 Patient Disposition: Home, Self-Care Activity: as tolerated Diet: heart healthy Discharge Instructions: Check blood pressure 1 to 2 times a day. Record and bring into your doctor for review. Call your doctor if your blood pressure is greater than 180/110 or less than 90/45. Take precautions to avoid falls. Rise slowly from a lying or sitting position. Pause before standing or walking. Check daily morning weights after voiding. Call your doctor if you gain more than 3 lb in 2 days or 5 lb in 1 week. Contact your doctor or call 911 and come to the Emergency Room if you have fever, worsening cough, lightheadedness with standing or other worrisome symptoms. Avoid NSAIDs (ibuprofen, naproxen, Aleve). Tylenol is safe to take. Follow-up with your primary care provider in 1-2 weeks. Please call for appointment. Follow-up with [facility] at next scheduled appointment. Please call for an appointment Thank you for using [facility] for your health care needs. Patient Instructions: Antibiotic Form, Ticagrelor (By mouth), Suicide Prevention (DC) Stand Alone Forms: General Discharge Information Follow-up/Referrals: Zion Freedman DO [Physician] - Call for Appointment Brice Crook MD [Physician] - Call for Appointment Discharge Medications: Continued trazodone 100 mg tablet 100 mg PO HS alendronate 70 mg tablet 70 mg PO WEEKLY Qty: 52 0RF Rx Instructions: Takes on Sunday omeprazole 20 mg capsule,delayed release(DR/EC) 20 mg PO DAILY Qty: 90 1RF losartan 25 mg tablet 12.5 mg PO DAILY Qty: 90 3RF metoprolol succinate 100 mg tablet extended release 24 hr 100 mg PO DAILY Qty: 30 5RF multivitamin [Daily Multi-Vitamin] Tablet 1 tablet PO DAILY albuterol sulfate 90 mcg/actuation HFA aerosol inhaler 2 puff inhalation Q6H PRN (Reason: Wheezing) Rx Instructions: INHALE 1-2 PUFFS EVERY 6 HOURS NEEDED. folic acid 1 mg tablet 1 mg PO DAILY aspirin 81 mg tablet,delayed release (DR/EC) 81 mg PO DAILY@0800 Qty: 90 3RF Brilinta 90 mg Tablet 90 mg PO Q12HR Qty: 180 3RF calcium 100 mg Capsule 100 mg PO DAILY atorvastatin 80 mg Tablet 80 mg PO HS Patient Comments: Pt has only taken while in the hospital. He left AMA before receiving RX. Pt states he was taking simvastatin prior to hospitalization on 06-16-23. furosemide 20 mg Tablet 20 mg PO DAILY Qty: 90 3RF Trelegy Ellipta 100-62.5-25 mcg blister with device 1 inh inhalation QAM Qty: 60 11RF Rx Instructions: rinse and spit cholecalciferol (vitamin D3) 125 mcg (5,000 unit) capsule 125 mcg PO DAILY Qty: 90 1RF Date of admission: 04/06/24 16:44 Primary Care Provider: PHYSICIAN,TARIFF PUBLISHING AGENT Admitting Provider: Elkin Coulter Attending physician on admission: Elkin Coulter Condition: Stable Hospitalist MIPS Heart Failure (Exclusion) Patient has history of Heart Transplant or Left Ventricular Assistive Device?: No IF YES, STOP HERE Heart Failure (Qualifier) Patient has current or prior documentation of LVEF less than or equal to 40%, or mod/servere depressed LVSF?: No IF NO, STOP HERE
--- NOTE | 2024-04-07 16:29 | PC.NURSE ---
Reviewed discharge instructions with patient, including medication list. Verbalizes understanding and denies further questions at this time
== END 2024-04-07 16:20 | disposition home or self-care (01) ==
LOC: ANHED 13:33 → ANHIMU 17:38
PROVIDERS: Nurse Practitioner Acute Care; Admitting Provider Internal Medicine; Emergency Provider Emergency Medicine; Visit Provider Internal Medicine
DX: R07.89 Other chest pain (principal); I25.5 Ischemic cardiomyopathy; J44.89 Other specified chronic obstructive pulmonary disease; J43.9 Emphysema, unspecified; I25.2 Old myocardial infarction; I10 Essential (primary) hypertension; E78.00 Pure hypercholesterolemia, unspecified; I25.10 Atherosclerotic heart disease of native coronary artery without angina pectoris; K21.9 Gastro-esophageal reflux disease without esophagitis; M81.0 Age-related osteoporosis without current pathological fracture; F41.8 Other specified anxiety disorders; Z87.891 Personal history of nicotine dependence; Z95.5 Presence of coronary angioplasty implant and graft; F12.90 Cannabis use, unspecified, uncomplicated; Z79.51 Long term (current) use of inhaled steroids; Z79.82 Long term (current) use of aspirin
CPT/HCPCS: 36415; 71046; 80053; 83880; 84484; 85025; 85610; 85730; 93005; 93306; 94640; 99285; A9270; G0378

== ENCOUNTER 2024-06-19 14:14 | Outpatient (CLI) | payer OTHER, SELFPAY ==
--- NOTE | ~2024-06-19 | CT_ITS ---
EXAMINATION: CT diagnostic chest w con DATE: 06/19/2024 14:57 INDICATION: Personal history of nicotine dependence TECHNIQUE: Computed tomography (CT) of the chest was performed without intravenous contrast. The dose -length product was 178.00 mGy-cm. Automated exposure control and iterative reconstruction technique were employed. COMPARISON: CT dated 06/17/2023 FINDINGS: Heart size normal. There is no significant vascular abnormality. No evidence for aortic ane urysm or dissection. No central pulmonary embolism. Upper abdomen is unremarkable. There is a 4 mm le ft upper lobe nodule, image 29. This is unchanged compared with 06/17/2023, likely benign. There is e mphysema. IMPRESSION: 1. Stable 4 mm left upper lobe nodule, likely benign. Consider follow-up low dose CT chest in 12 barak hs. 2: Emphysema. Reviewed, dictated and finalized at location B. 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 Stable 4 mm left upper lobe nodule, likely benign. Consider follow-up low do se CT chest in 12 months. 2: Emphysema.
[2024-06-19 14:48] LABS: Estimated Glomerular Filt Rate > 60
== END 2024-06-19 14:15 | disposition home or self-care (01) ==
PROVIDERS: PCP Emergency Medicine; Visit Provider Nurse Practitioner Family
DX: R91.1 Solitary pulmonary nodule (principal); J43.9 Emphysema, unspecified; R04.2 Hemoptysis; Z87.891 Personal history of nicotine dependence
CPT/HCPCS: 71260; Q9967

== ENCOUNTER 2024-09-10 11:39 | Outpatient (CLI) | payer OTHER, SELFPAY ==
--- OUTSIDE RECORDS SUMMARY | 2024-09-10 13:11 | XMS_ITS | Clinical Summary ---
Author Organization [facility] Address [address] [facility], [place] [address] Phone Care Team Providers Care Solvent Recoverer Name Role Phone Ivette Barba APRN, INFORMATICS ANALYST Primary Care Pro vider Allergies No known active allergies Medications buPROPion, Smoking Deter, (ZYBAN) 150 MG TABLET SR 12 HR Take 150 mg by mouth 2 times daily. Active diazePAM (VALIUM) 5 MG Tablet Take 5 mg by mouth every 8 hours as needed. Active famotidine (PEPCID) 20 MG Tablet Take 20 mg by mouth 2 times daily. Active [place]lysses-3 Fatty Acids (FISH OIL PO) Take by mouth daily. Active lithium 300 MG Capsule Take 300 mg by mouth 3 times daily. Active simvastatin (ZOCOR) 10 MG Tablet Take 10 mg by mouth every evening. Active budesonide-form oterol fumarate (SYMBICORT) 160-4.5 MCG/ACT Aerosol take 2 Puffs by inhalation 2 times daily. Active traZODone (DESYREL) 150 MG Tablet Take 100 mg by mouth nightly. Active albuterol (VENTOLIN HFA) 108 (90 Base) MCG/ACT Aerosol Solution take 2 Puffs by inhalation every 4 hours as needed. Active Omeprazole 20 MG Tablet Delayed Response Take by mouth. Activ e propranolol (INDERAL) 40 MG Tablet Take 40 mg by mouth 3 times daily. Active fluticasone-tao meterol (Wixela Inhub) 500-50 MCG/DOSE AEROSOL POWDER, BREATH ACTIVATED take 1 Puff by inhalation 2 times daily. 1 Each 5 2 Active Incruse Ellipta 62.5 MCG/INH AEROSOL POWDER, BREATH ACTIVATED INHALE 1 PUFF BY MOUTH EVERY DAY 30 Each 3 2 Active Active Problems Problem Noted Date Diagnosed Date Centrilobular emphysema 05/15/2019 Pulmonary HTN 05/15/2019 Tobacco use disorder 05/15/2019 Gastroesophageal reflux disease without esophagi tis 05/15/2019 Family History Medical History Relation Name Comments Other-comment Father cerebral arter ial aneurysm Relation Name Status Comments Father Social History Tobacco Use Types Packs/Day Years Used Date Smoking Tobacco: Former Cigarettes Smokeless Tobacco: Never Tobacco Cessation:Counseling Given: No Comments:less than 3 cigarettes a day Alcohol Use Standard Drinks/Week Comments Yes 0 (1 standard drink = 0.6 oz pur e alcohol) occasional Sexually Active Control Partners Comments Not Currently Sex and Gender Information Value Date Recorded Sex Assigned at Not on file Legal Sex Male 8:50 PM CDT Gender Identity Not on file Sexual Orientation Not on file Last Filed Vital Signs Vital Sign Reading Time Taken Comments Blood Pressure 120/70 06/27/2021 1:33 PM MARBLE RUBBER Pulse 66 06/27/2021 1:33 PM MARBLE RUBBER Temperature 36.6 C (97.9 F) 06/27/2021 1:33 PM MARBLE RUBBER Respiratory Rate 16 06/27/2021 1:33 PM MARBLE RUBBER Oxygen Saturation 97% 06/27/2021 1:33 PM MARBLE RUBBER Inhaled Oxygen Concentration - - Weight 78.1 kg (172 lb 1.6 oz) 06/27/2021 1:33 P M MARBLE RUBBER Height 180.3 cm (5' 11 ) 06/27/2021 1:33 PM MARBLE RUBBER Body Mass Index 24 06/27/2021 1:33 PM MARBLE RUBBER Plan of Treatment Health Maintenance Due Date Last Done Comments Hepatitis C Virus (HCV) Screening 1962 TdaP Immunization 1962 Pneumococcal Immunization (50+ years) (1 of 2 - PCV) 1981 Colonoscopy 2007 Colorectal Cancer Screening 2007 Cologuard 2012 Immunochemical Fecal Occult Blood 2012 Zoster Immunization (1 of 2) 2012 PSA Discussion 2017 Respiratory Syncytial Virus (RSV) Immunization (Adult) (1 - Risk 60-74 years 1-dose series) 2022 Influenza Immunization (#1) 2024 04/14/2019, 1 07/30/2017 SARS-COV-2 Immunization ( season) 2024 03/13/2022, 03/30/2021, 09/20/2020, Additional history exists Hepatitis B Immunization Aged Out No longer eligible based on patient's age to complete this topic Meningococcal Immunization (ACWY) Aged Out No longer eligible based on patient's age to complete this topic Rotavirus Immunization Aged Out No lo nger eligible based on patient's age to complete this topic Insurance [place]ID [place] Care Teams Solvent Recoverer Relationship Specialty Start Date End Date Ivette Barba APRN, INFORMATICS ANALYST [address] [place] [address] PCP - General Certified Nurse Practitioner 06/09/21
--- OUTSIDE RECORDS SUMMARY | 2024-09-10 13:11 | XMS_ITS | Clinical Summary ---
Author Organization [facility] Address [address] [place] [address] Care Team Providers Care Payroll Assistant Name Role Phone Ivette Barba APRN-RUBBER CHEMIST Primary Care Provider Source Comments [facility],non-owned Affiliates and Associated Physician Practices is amultiple site organization consisting of ambulatory clinics and hospital sitesin [place], [place] and [place]. This disclosure is being madepursuant to the Care Everywhere program and may not contain all information available regarding this patient. Last updated 18.[facility] Allergies No known active allergies Medications * Be aware that medications may not be up to date on this document. Alwaysverify current medications with the patient. Medication Sig Dispensed Refills Start Date End Date Status albuterol HFA (PROVENTIL; VENTOLIN; PROAIR) 108 (90 Base) MCG/ACT inhaler Inhale 2 puffs by mouth every 4 hours as needed Active ADVAIR DISKUS 500-50 MCG/ACT inhaler Inhale 1 puff by mouth 2 times daily 10/19/2021 Active omeprazole (PRILOSEC) 20 MG capsule Take 20 mg by mouth once daily 10/19/2021 Active propranolol (INDERAL) 10 MG tablet Take 10 mg by mouth 3 times daily 10/17/2021 Active propranolol (INDERAL) 40 MG tablet Take 40 mg by mouth 3 times daily Active simvastatin (ZOCOR) 10 MG tablet Take 10 mg by mouth once daily 09/15/2021 Active traZODone (DESYREL) 150 MG tablet Take 150 mg by mouth once daily as needed 10/19/2021 Active Active Problems Problem Noted Date Diagnosed Date Tobacco use disorder 05/15/2019 Pulmonary HTN 05/15/2019 Gastroesophageal reflux disease without esophagi tis 05/15/2019 Centrilobular emphysema 05/15/2019 Social History Tobacco Use Types Packs/Day Years Used Date Smoking Tobacco: Never Assessed Sex and Gender Information Value Date Recorded Sex Assigned at Not on file Gender Identity Not on file Sexual Orientation Not on file Plan of Treatment Health Maintenance Due Date Last Done Comments COLOGUARD (AGES 45-75) - COL ON CA SCREENING 1962 COLON MONITORING 1962 COLONOSCOPY - COLON CA SCREENING 1962 CT COLONOGRAPHY - COLON CA SCREENING 1962 Colorectal Cancer Screening 1962 FIT - COLON CA SCREENING 1962 FLEX SIG - COLON CA SCREENING 1962 HIV SCREENING 1977 HEPATITIS C SCREENING 03/30/1980 DTAP/TDAP/TD VACCINES (1 - Tdap) 1981 PNEUMOCOCCAL VACCINE 50+ (1 of 2 - PCV) 1981 PNEUMOCOCCAL VACCINE (1 of 2 - PCV) 1981 ZOSTER VACCINE (1 of 2) 2012 Respiratory Syncytial Virus (RSV) Vaccine Pt: or over 60 yrs (1 - Risk 60-74 years 1-dose series) 2022 COVID-19 VACCINE (1 - 2023-2 5 season) 2024 INFLUENZA VACCINE (#1) 2024 DEPRESSION SCREENING 06/11/2024 HEPATITIS B VACCINE Aged Out No longe r eligible based on patient's age to complete this topic HIB VACCINE Aged Out No longer eligi ble based on patient's age to complete this topic HPV VACCINE Aged Out No longer eligi ble based on patient's age to complete this topic MENINGOCOCCAL (Group B) VACC INE SHARED DECISION-MAKING Aged Out No longer eligibl e based on patient's age to complete this topic MENINGOCOCCAL GROUPS A/C/Y/W VACCINE Aged Out No longer eligible b ased on patient's age to complete this topic Care Teams Payroll Assistant Relationship Specialty Start Date End Date Ivette Barba, SWING MANAGER-RUBBER CHEMIST [address] [place] [address] PCP - General 11/10/21
[2024-09-10 13:15] LABS: Alanine Aminotransferase 26 U/L (6-50); Albumin Level 4.6 g/dL (3.5-5.1); Alkaline Phosphatase 98 U/L (38-126); Anion Gap 9 mmol/L (4-12); Aspartate Amino Transferase 89 U/L (17-59); Bilirubin,Total 0.4 mg/dL (0.2-1.3); Blood Urea Nitrogen 15 mg/dL (9-20); Carbon Dioxide 28 mmol/L (22-30); Chloride 100 mmol/L (98-107); Cholesterol 142 mg/dL (0-200); Estimated Glomerular Filt Rate > 60; Glucose 103 mg/dL (65-110); HDL Direct 59 mg/dL; Potassium 4.3 mmol/L (3.4-5.0); Sodium 137 mmol/L (137-145); Triglycerides 167 mg/dL (<150)
[2024-09-10 13:26] LABS: LDL Cholesterol Direct 54 mg/dL
[2024-09-10 13:45] LABS: Prostate Specific Antigen 0.3 ng/mL (< OR = 4.0)
[2024-09-10 14:11] LABS: Vitamin D 25 Hydroxy 72.1 ng/mL
== END 2024-09-10 11:40 | disposition home or self-care (01) ==
LOC: ANHGOSHLAB 11:40
PROVIDERS: PCP Emergency Medicine; Visit Provider Emergency Medicine
DX: E78.5 Hyperlipidemia, unspecified (principal); Z12.5 Encounter for screening for malignant neoplasm of prostate; E55.9 Vitamin D deficiency, unspecified
CPT/HCPCS: 36415; 80053; 80061; 82306; 84153; G0103

== ENCOUNTER 2024-10-27 13:27 | Inpatient (IN) | payer OTHER, SELFPAY ==
[2024-10-27] VITALS (40 sets, daily range): BP systolic 104–197; BP diastolic 70–123; PULSE 79–135; RESP 21–90; TEMP 37.1; O2SAT 96–100; BMI 24.7
--- NOTE | ~2024-10-27 | CT_ITS ---
EXAMINATION: CTA chest PE protocol DATE: 10/29/2024 20:41 CDT INDICATION: Shortness of breath TECHNIQUE: Computed tomographic angiography (CTA) of the chest was performed with 100 mL Omnipaque-35 0 intravenous contrast. The dose-length product was 325.93 mGy-cm. Maximum intensity projection 3D-re constructions of the aorta and other arteries were constructed by the technologist on a separate work station. COMPARISON: 06/17/2023. Reference was made to a diagnostic evaluation of the chest dated 06/19/2024 FINDINGS/OBSERVATIONS: PULMONARY ARTERIES: No filling defect is identified within the main or proximal pulmonary artery. The main pulmonary artery is not enlarged. THORACIC AORTA: No aneurysmal dilatation or dissection is present. The great vessels are intact LUNGS: Panlobular emphysematous disease with bibasilar honeycombing. The remainder of the lungs are clear. MEDIASTINUM: No morphologically suspicious or pathologically enlarged lymph nodes are identified with in the mediastinum or bilateral axilla. BONES OF THE CHEST: No acute fracture. No significant degenerative disease. No lytic or blastic lesions. HEART: The heart is of normal size, without pericardial effusion. IMPRESSION: No pulmonary embolus. No thoracic aortic dissection. Panlobular emphysematous disease with bibasilar honeycombing. Reviewed, dictated and finalized at location A.
--- NOTE | ~2024-10-27 | XR_ITS ---
Portable chest x-ray Comparison: 10/27/2024 Clinical History: COPD Findings: Lungs are clear, without focal consolidation or pleural effusion. Probable COPD. Cardiome diastinal silhouette is stable. Bones and soft tissues are unremarkable. Impression: Clear lungs. COPD. Reviewed, dictated and finalized at location . Impression: Clear lungs. COPD.
--- NOTE | ~2024-10-27 | XR_ITS ---
XR chest 1V portable Ordering provider: Lebron Roa MD History: 64 years Male with . resp distress . Comparison: April 06, 2024. FINDINGS: MEDIASTINUM: The cardiac silhouette is not enlarged. Congestive leroy. LUNGS: No effusions or pneumothorax. Infiltrate is seen in both lower lobes. OTHER: No free air under the diaphragm. IMPRESSION: Bilateral basal pneumonia. Follow-up to resolution advised. Reviewed, dictated and finalized at location A.
[2024-10-27] MEDS: methylPREDNISolone SOD SUCC 125 MG VIAL IV PUSH (13:41)
[2024-10-27] MEDS: MAGNESIUM SULF 1 GM/D5W 100 ML 1 GM/100 ML BAG IVPB (13:46)
--- OUTSIDE RECORDS SUMMARY | 2024-10-27 13:46 | XMS_ITS | Clinical Summary ---
Author Organization [facility] Address [address] [place] [address] Care Team Providers Care Deicer Inspector Pneumatic Name Role Phone Ivette Barba APRN-SHOE TREER Primary Care Provider Source Comments [facility]),non-owned Affiliates and Associated Physician Practices is amultiple site organization consisting of ambulatory clinics and hospital sitesin [place], [place], [place] and [place]. This disclosure is being madepursuant to the Care Everywhere program and may not contain all information available regarding this patient. Last updated 18.[employer] [facility] Allergies No known active allergies Medications * Be aware that medications may not be up to date on this document. Always verify current medications with the patient. albuterol HFA (PROVENTIL; VENTOLIN; PROAIR) 108 (90 [...] at Not on file Legal Sex Male 12:54 PM SHOP COOPER Gender Identity Not on file Sexual Orientation [...] 50+ (1 of 2 - PCV) 1981 ZOSTER VACCINE (1 of 2) 2012 Respiratory Syncytial Virus (RSV) Vaccine Pt: or over 60 yrs (1 - Risk 60-74 years 1-dose series) 2022 COVID-19 VACCINE (1 - 2023-2 5 season) 2024 DEPRESSION SCREENING 06/11/2024 INFLUENZA VACCINE (Season Ended) 2025 HEPATITIS B VACCINE Aged Out No longe [...] patient's age to complete this topic Insurance [facility] Care Teams Deicer Inspector Pneumatic Relationship Specialty Start Date End Date Ivette Barba, MANAGER STATISTICAL PROGRAMMING-SHOE TREER [address] [place] [address] PCP - General 11/10/21
--- OUTSIDE RECORDS SUMMARY | 2024-10-27 13:46 | XMS_ITS | Clinical Summary ---
Author Organization [facility] Address [address] [facility] [place] [address] Phone Care Team Providers Care Investigation Division Lieutenant Name Role Phone Ivette Barba APRN, PROBLEM MANAGER Primary Care Pro vider Allergies No known active allergies Medications buPROPion, Smoking Deter, (ZYBAN) 150 MG TABLET SR 12 HR Take 150 mg by mouth 2 times daily. Active diazePAM (VALIUM) 5 MG Tablet Take 5 mg by mouth every 8 hours as needed. Active famotidine (PEPCID) 20 MG Tablet Take 20 mg by mouth 2 times daily. Active [place]-3 Fatty Acids (FISH OIL PO) Take by [...] Comments Blood Pressure 120/70 06/27/2021 1:33 PM RECORD TESTER Pulse 66 06/27/2021 1:33 PM RECORD TESTER Temperature 36.6 C (97.9 F) 06/27/2021 1:33 PM RECORD TESTER Respiratory Rate 16 06/27/2021 1:33 PM RECORD TESTER Oxygen Saturation 97% 06/27/2021 1:33 PM RECORD TESTER Inhaled Oxygen Concentration - - Weight 78.1 kg (172 lb 1.6 oz) 06/27/2021 1:33 P M RECORD TESTER Height 180.3 cm (5' 11 ) 06/27/2021 1:33 PM RECORD TESTER Body Mass Index 24 06/27/2021 1:33 PM RECORD TESTER Plan of Treatment Health Maintenance Due Date [...] this topic Insurance MEDICAID [place] Care Teams Investigation Division Lieutenant Relationship Specialty Start Date End Date Ivette Barba APRN, PROBLEM MANAGER [address] [place] [address] PCP - General Certified Nurse Practitioner 06/09/21
--- NOTE | 2024-10-27 13:52 | ED_ITS ---
HPI - General Adult General Chief complaint: Shortness of Breath/Dyspnea Stated complaint: Respiratory Distress History of Present Illness HPI narrative: 64-year-old male present to the emergency department for evaluation after being found unresponsive in his driveway and respiratory distress. EMS was called for difficulty breathing and patient was found minimally responsive in his driveway with a pulse ox of 50% on room air. Patient was placed on non-rebreather and his oxygenation did increase to 92. Upon arrival to the emergency department patient was somnolent but responding to voice and was appropriate. Attempted BiPAP and patient did tolerate this well. Upon arrival patient denies any chest pain and states he had been feeling ill since yesterday. Patient declined any prior history of CHF but states he does have history of COPD and coronary artery disease. Related Data Home Medications ?Medication ?Instructions ?Recorded ?Confirmed ?Last Taken ?Type trazodone 100 mg tablet 100 mg PO HS 11/10/22 09/29/24 11/10/23 21:00 History calcium 100 mg capsule 100 mg PO DAILY 06/19/23 09/29/24 11/10/23 17:00 History multivitamin (Daily Multi-Vitamin 1 tablet PO DAILY 03/13/24 09/29/24 Unknown History tablet) aripiprazole 2 mg tablet 2 mg PO DAILY 09/08/24 09/29/24 Unknown History sertraline 50 mg tablet 50 mg PO DAILY 09/08/24 09/29/24 Unknown History vitamin B complex-folic acid 0.4 1 tablet PO DAILY 09/08/24 09/29/24 Unknown History mg tablet (B Complex 1 (with folic acid)) Allergies Allergy/AdvReac Type Severity Reaction Status Date / Time No Known Allergies Allergy Verified 10/27/24 13:54 Review of Systems 2 Review of Systems: All systems reviewed & are unremarkable except as noted in HPI and below PMFSH Past Medical History Medical History Bilateral cataracts Non-STEMI (non-ST elevated myocardial infarction) Preop cardiovascular exam Shock CAD (coronary artery disease) Right lower lobe pneumonia Pneumonia Emphysema lung Hypertension Chronic hyponatremia Coronary artery disease Thoracic compression fracture Gastroesophageal reflux disease Ischemic cardiomyopathy EF is low as 30 to 35% in June 2023; improved to 60 to 65% on echo obtained in August 2023. Osteoporosis COPD with chronic bronchitis and emphysema Heavy alcohol use Anxiety and depression Hypercholesteremia Former smoker Surgical History Surgical History Hx of cataract surgery History of coronary artery stent placement (06/2023) x3 to the LAD. History of tonsillectomy Family History Family History Father Aneurysm Grandparent Black lung Social History Social History Social History: Surrogate medical decision maker: Valeriano Luz Elena, sibling. Code status: Full code. Smoking packs per day: 1.5 Smoking cigarettes per day: 30.0 Years smoked: 42 Smoking pack-years: 63.00 Smoking status: Former smoker Tobacco type: cigarettes Second hand tobacco smoke exposure: No Alcohol intake: current Drinks per week: 36 Alcohol use details: wine Substance use: never Substance use type: does not use Last use: Sunday Do You Feel Safe in your Home?: Yes Lack of Transportation: No Lack of Food: Never True Current Housing: I Have Housing Concerned About Future Housing: No Difficulty Paying Gas/Electric Bills: No Difficulty Paying for Meds: No Currently Unemployed: No Education: High School Diploma/GED Difficulty w/ Childcare or Family Care: No Living arrangements: alone Additional living arrangements comments: Lives alone in [place]. 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 Spiritual care concerns: No Exam 2 Narrative: APPEARANCE: Respiratory distress HEAD: normocephalic, atraumatic. EYES: PERRLA/EOMI, conjunctivae clear. NOSE: Normal no drainage EARS:TMS clear with good light reflex. THROAT: Pharynx clear, no exudate. NECK: Supple. No adenopathy, no masses. RESPIRATORY: Minimal air movement with wheezing in upper lung pittman and congestion and lower lung pittman CARDIOVASCULAR: Regular rate and rhythm without murmurs rubs or gallops. ABDOMINAL: Soft, nontender, nondistended, normal bowel sounds MUSCULOSKELETAL: Moves all extremities. Strength/ROM intact, No edema, No calf tenderness. NEURO: Alert. Moving all limbs equally with no focal deficit SKIN: Warm, dry. Normal Color Course Vital Signs Vital signs: Vital Signs Pulse Rate 135 H 10/27/24 13:27 Respiratory Rate 39 H 10/27/24 13:27 Pulse Oximetry 96 10/27/24 13:27 Oxygen Delivery Room Air 10/27/24 13:27 Temperature 98.8 F 10/27/24 19:42 Pulse Rate 92 10/27/24 20:23 Respiratory Rate 90 H 10/27/24 20:23 Blood Pressure 130/73 10/27/24 19:42 Pulse Oximetry 98 10/27/24 19:42 Oxygen Delivery BiPAP 10/27/24 19:15 Fraction of Inspired Oxygen 50 10/27/24 15:24 Medical Decision Making MDM Narrative Medical decision making narrative: 64-year-old male presents emergency department for evaluation for respiratory distress. Patient was following commands upon arrival to the emergency department so BiPAP was attempted. Patient's oxygenation did improve with BiPAP. Patient's lungs do show evidence of pulmonary vascular congestion versus pneumonia. Patient's BNP is not significantly elevated. Patient is currently afebrile but does have a leukocytosis of 14.2 and hemoglobin of 18.7. INR is 0.9. Patient's initial pCO2 was 63.3 but after recheck after being on BiPAP for an hour patient's pCO2 was improved to 40.4. Patient's initial chemistries prior to rehydration did show a potassium of 5.1 and lactic acid of 5.5. Patient's proBNP is 781 which is similar to his baseline. Chest x-ray did show bilateral pneumonia. Patient was started on Rocephin azithromycin and blood cultures were ordered. Since patient had significant improvement in his ABG and in his mental status case was discussed with hospitalist patient will be admitted to the IMU versus ICU. Differential Diagnosis Differential Diagnosis: Pneumonia, COPD, respiratory distress, respiratory failure, CHF, COVID, RSV, influenza Vital Signs Vital Signs: Vital Signs Pulse Rate 135 H 10/27/24 13:27 Respiratory Rate 39 H 10/27/24 13:27 Pulse Oximetry 96 10/27/24 13:27 Oxygen Delivery Room Air 10/27/24 13:27 Temperature 98.8 F 10/27/24 19:42 Pulse Rate 92 10/27/24 20:23 Respiratory Rate 90 H 10/27/24 20:23 Blood Pressure 130/73 10/27/24 19:42 Pulse Oximetry 98 10/27/24 19:42 Oxygen Delivery BiPAP 10/27/24 19:15 Fraction of Inspired Oxygen 50 10/27/24 15:24 Lab Data Lab results reviewed: Yes I reviewed the patient's lab results. 10/27/24 13:51 10/27/24 13:51 Labs: Lab Results 10/27/24 10/27/24 10/27/24 Range/Units 13:49 13:51 13:51 WBC 14.2 H (4.5-10.0) K/mm3 RBC 5.78 (4.6-6.20) M/mm3 Hgb 18.7 H D (14.0-18.0) g/dL Hct 54.1 H (42.0-52.0) % MCV 93.6 (80-100) fl MCH 32.4 (26-34) pg MCHC 34.6 (32-36) g/dl RDW 12.3 (11.5-14.5) % Plt Count 307 D (150-375) k/mm3 MPV 8.3 (7.4-10.4) fl Immature Gran % (Auto) 0.6 H (0-0.5) % Neut % (Auto) 53.3 (45.5-73.1) % Lymph % (Auto) 36.5 (18.3-44.2) % [place] % (Auto) 6.7 (2.6-8.5) % Eos % (Auto) 2.2 (0-4.4) % Baso % (Auto) 0.7 (0.2-1.2) % Lymph # (Auto) 5.19 H (0.9-3.2) K/mm3 [place] # (Auto) 1.0 H (0.1-0.6) K/mm3 Eos # (Auto) 0.3 (0-0.3) K/mm3 Baso # (Auto) 0.1 (0.0-0.1) K/mm3 Abs Immat Gran (auto) 0.09 H (0.00-0.031) K/mm3 Absolute Neuts (auto) 7.6 H (1.3-6.7) K/mm3 Absolute Nucleated RBC 0.000 (0.0-0.012) K/mm3 Nucleated RBC % 0.0 (0.0-0.2) % PT 12.9 (11.1-14.7) Seconds INR 0.9 APTT 32.6 (22.3-36.8) Seconds Methemoglobin (0-1.5) %THb Expiratory Pressure cmH2O Inspiratory Pressure cmH2O Sodium 136 L (137-145) mmol/L Potassium 5.1 H (3.4-5.0) mmol/L Chloride 101 (98-107) mmol/L Carbon Dioxide 21 L (22-30) mmol/L Anion Gap 14 H (4-12) mmol/L BUN 16 (9-20) mg/dL Creatinine 0.99 (0.7-1.3) mg/dL Estim Creat Clear Calc 75 ml/min Estimated GFR > 60 (59 - ) Glucose 288 H (65-110) mg/dL Lactic Acid 5.5 H* (0.7-2.0) mmol/L Calcium 8.8 (8.4-10.2) mg/dL Total Bilirubin 0.5 (0.2-1.3) mg/dL AST 63 H (17-59) U/L ALT 35 (6-50) U/L Alkaline Phosphatase 104 (38-126) U/L Troponin I < 0.012 Cancelled (0.000-0.034) ng/mL C-Reactive Protein < 0.5 (<1.0) mg/dL NT-Pro-B Natriuret Pep 781 H (19.9-100) pg/mL Total Protein 8.0 (6.3-8.2) g/dL Albumin 4.6 (3.5-5.1) g/dL Urine Color (Yellow) Urine Appearance (Clear) Urine pH (5.0-9.0) Ur Specific [place] (1.001-1.035) Urine Protein (Negative) mg/dL Urine Glucose (UA) (Negative) mg/dL Urine Ketones (Negative) mg/dL Ur Blood (Man) (Negative) Urine Nitrate (Negative) Urine Bilirubin (Negative) Urine Urobilinogen (<2.0) mg/dL Add Ur Microanalysis Leukocyte Esterase Rfl (Negative) JOSE/UL Urine RBC (0-2) /hpf Urine WBC (0-3) /hpf Ur Squamous Epith Cells (Few) /hpf Urine Bacteria /hpf Urine Casts Ethyl Alcohol < 10 (<10) mg/dL 10/27/24 10/27/24 10/27/24 Range/Units 13:53 15:08 15:31 WBC (4.5-10.0) K/mm3 RBC (4.6-6.20) M/mm3 Hgb (14.0-18.0) g/dL Hct (42.0-52.0) % MCV (80-100) fl MCH (26-34) pg MCHC (32-36) g/dl RDW (11.5-14.5) % Plt Count (150-375) k/mm3 MPV (7.4-10.4) fl Immature Gran % (Auto) (0-0.5) % Neut % (Auto) (45.5-73.1) % Lymph % (Auto) (18.3-44.2) % [place] % (Auto) (2.6-8.5) % Eos % (Auto) (0-4.4) % Baso % (Auto) (0.2-1.2) % Lymph # (Auto) (0.9-3.2) K/mm3 [place] # (Auto) (0.1-0.6) K/mm3 Eos # (Auto) (0-0.3) K/mm3 Baso # (Auto) (0.0-0.1) K/mm3 Abs Immat Gran (auto) (0.00-0.031) K/mm3 Absolute Neuts (auto) (1.3-6.7) K/mm3 Absolute Nucleated RBC (0.0-0.012) K/mm3 Nucleated RBC % (0.0-0.2) % PT (11.1-14.7) Seconds INR APTT (22.3-36.8) Seconds Methemoglobin 0.6 0.5 (0-1.5) %THb Expiratory Pressure 8 5 cmH2O Inspiratory Pressure 16 25 cmH2O Sodium (137-145) mmol/L Potassium (3.4-5.0) mmol/L Chloride (98-107) mmol/L Carbon Dioxide (22-30) mmol/L Anion Gap (4-12) mmol/L BUN (9-20) mg/dL Creatinine (0.7-1.3) mg/dL Estim Creat Clear Calc ml/min Estimated GFR (59 - ) Glucose (65-110) mg/dL Lactic Acid (0.7-2.0) mmol/L Calcium (8.4-10.2) mg/dL Total Bilirubin (0.2-1.3) mg/dL AST (17-59) U/L ALT (6-50) U/L Alkaline Phosphatase (38-126) U/L Troponin I (0.000-0.034) ng/mL C-Reactive Protein (<1.0) mg/dL NT-Pro-B Natriuret Pep (19.9-100) pg/mL Total Protein (6.3-8.2) g/dL Albumin (3.5-5.1) g/dL Urine Color Yellow (Yellow) Urine Appearance Clear (Clear) Urine pH 5.5 (5.0-9.0) Ur Specific [place] 1.016 (1.001-1.035) Urine Protein 2+ H (Negative) mg/dL Urine Glucose (UA) Negative (Negative) mg/dL Urine Ketones Negative (Negative) mg/dL Ur Blood (Man) Trace (Negative) Urine Nitrate Negative (Negative) Urine Bilirubin Negative (Negative) Urine Urobilinogen 0.2 (<2.0) mg/dL Add Ur Microanalysis Reviewed Leukocyte Esterase Rfl Negative (Negative) JOSE/UL Urine RBC 0-2 (0-2) /hpf Urine WBC 0-5 (0-3) /hpf Ur Squamous Epith Cells None seen (Few) /hpf Urine Bacteria None seen /hpf Urine Casts >20 Ethyl Alcohol (<10) mg/dL ABG Data ABG results: 10/27/24 10/27/24 13:53 15:08 Puncture Site Right radial Right radial ABG pH 7.122 L* 7.304 L ABG pCO2 63.3 H* 40.4 ABG pO2 146.4 H 177.1 H ABG PO2/FiO2 Ratio 2.09 2.53 ABG HCO3 20.2 L 19.6 L ABG O2 Saturation 98.1 99.1 ABG O2 Content 28.0 H 25.3 H ABG Base Excess -10.6 -6.3 A-a Gradient 284.7 278.6 Oxyhemoglobin 97.5 98.4 Carboxyhemoglobin 0.1 0.3 Reduced Hemoglobin 1.8 0.8 Total Hemoglobin 20.3 H 18.1 H O2 Delivery Device Bipap Bipap O2 Liters/Min Not Reportable Not Reportable Vent Rate 14 FiO2 70 70 Imaging Data Radiologist's impression: Impressions Chest X-Ray 10/27/24 13:50 IMPRESSION: Bilateral basal pneumonia. Follow-up to resolution advised. Critical Care Time Critical Care Time Critical Care Time: Yes Total Critical Care Time: 35 Discharge Plan Discharge Clinical Impression: Acute respiratory distress, Pneumonia, Hypercapnia Patient Disposition: Still a Patient Condition: Serious
[2024-10-27 13:59] LABS: Alveolar/Arterial O2 Gradient 284.7 mmHg; Base Excess ABG -10.6 mEq/l (+/-2.0); Carboxyhemoglobin 0.1 % THb (0-2.0); Fractional Inspired Oxygen 70 %; HCO3 ABG 20.2 mEq/l (22.0-26.0); Methemoglobin ABG 0.6 %THb (0-1.5); Oxygen Saturation ABG 98.1 % (95.0-100.0); Oxyhemoglobin 97.5 % THb (90.0-100.0); PO2 ABG 146.4 mmHg (80.0-100.0); PO2 FiO2 Ratio Arterial Blood 2.09 %; Reduced Hemoglobin 1.8 %THb (0-5.0); Total Hemoglobin 20.3 g/dL (12.0-18.0)
[2024-10-27 14:00] LABS: Basophils Absolute Auto 0.1 K/mm3 (0.0-0.1); Basophils Percent Auto 0.7 % (0.2-1.2); Eosinophils Absolute Auto 0.3 K/mm3 (0-0.3); Eosinophils Percent Auto 2.2 % (0-4.4); Hematocrit 54.1 % (42.0-52.0); Hemoglobin 18.7 g/dL (14.0-18.0); Immature Granulocyte Absolute 0.09 K/mm3 (0.00-0.031); Immature Granulocyte Percent A 0.6 % (0-0.5); Lymphocytes Absolute Auto 5.19 K/mm3 (0.9-3.2); Lymphocytes Percent Auto 36.5 % (18.3-44.2); Mean Corpuscular HGB Conc 34.6 g/dl (32-36); Mean Corpuscular Hemoglobin 32.4 pg (26-34); Mean Corpuscular Volume 93.6 fl (80-100); Mean Platelet Volume 8.3 fl (7.4-10.4); Monocytes Percent Auto 6.7 % (2.6-8.5); Neutrophils Absolute Auto 7.6 K/mm3 (1.3-6.7); Neutrophils Percent Auto 53.3 % (45.5-73.1); Platelet Count Result 307 k/mm3 (150-375); Red Blood Count 5.78 M/mm3 (4.6-6.20); Red Cell Distribution Width 12.3 % (11.5-14.5); White Blood Count 14.2 K/mm3 (4.5-10.0)
[2024-10-27 14:05] LABS: Device BIPAP; Modified Allen's Test Pass; PCO2 ABG 63.3 mmHg (35.0-45.0); Site Drawn RIGHT RADIAL; pH ABG 7.122 (7.350-7.450)
--- NOTE | 2024-10-27 14:06 | PC.NURSE ---
ERP at bedside, states to hold nitro drip at this time bp- 167/109
[2024-10-27 14:07] LABS: Expiratory Pressure 8 cmH2O; Inspiratory Pressure 16 cmH2O
[2024-10-27 14:11] LABS: Alanine Aminotransferase 35 U/L (6-50); Albumin Level 4.6 g/dL (3.5-5.1); Alkaline Phosphatase 104 U/L (38-126); Anion Gap 14 mmol/L (4-12); Aspartate Amino Transferase 63 U/L (17-59); Bilirubin,Total 0.5 mg/dL (0.2-1.3); Blood Urea Nitrogen 16 mg/dL (9-20); Calcium 8.8 mg/dL (8.4-10.2); Carbon Dioxide 21 mmol/L (22-30); Chloride 101 mmol/L (98-107); Estimated CRCL calculation 75 ml/min; Estimated Glomerular Filt Rate > 60; Glucose 288 mg/dL (65-110); Potassium 5.1 mmol/L (3.4-5.0); Sodium 136 mmol/L (137-145)
[2024-10-27] MEDS: ALBUTEROL SULFATE NEB 2.5 MG/3 ML INH INHALATION ×3 (14:11→20:13)
[2024-10-27 14:21] LABS: INR 0.9; NT Pro B Type Natriuretic Pept 781 pg/mL (19.9-100); Prothrombin Time 12.9 Seconds (11.1-14.7)
[2024-10-27 14:22] LABS: Partial Thromboplastin Time 32.6 Seconds (22.3-36.8)
[2024-10-27 14:40] LABS: CRP < 0.5 mg/dL (<1.0); Troponin I < 0.012 ng/mL (0.000-0.034)
[2024-10-27 14:41] LABS: Ethanol < 10 mg/dL (<10)
[2024-10-27] MEDS: LACTATED RINGERS 1,000 ML 999 ML IV CONT (14:54)
[2024-10-27] MEDS: AZITHROMYCIN 500 MG/NS 250 ML 500 MG/250 ML BAG 250 MG IVPB (14:54)
--- NOTE | 2024-10-27 15:02 | ECG_ITS ---
Test Date: 2024-10-27 15:03:18 Measurements Intervals [place] Rate: 97 P: 48 VT: 150 QRS: 78 QRSD: 89 T: 77 QT: 337 QTc: 429 Interpretive Statements SINUS RHYTHM POSSIBLE RIGHT VENTRICULAR CONDUCTION DELAY [RSR (QR) IN V1/V2] Compared to ECG 04/06/2024 13:58:36 Sinus bradycardia no longer present Electronically Signed On 10-28-2024 13:24:01 CDT by Shahid Collins M.D.
--- NOTE | 2024-10-27 15:15 | PC.NURSE ---
spoke with refrigerating technician, only one set of blood cultures were drawn prior to antibiotic administration
[2024-10-27 15:16] LABS: Alveolar/Arterial O2 Gradient 278.6 mmHg; Base Excess ABG -6.3 mEq/l (+/-2.0); Carboxyhemoglobin 0.3 % THb (0-2.0); Fractional Inspired Oxygen 70 %; HCO3 ABG 19.6 mEq/l (22.0-26.0); Methemoglobin ABG 0.5 %THb (0-1.5); Oxygen Content ABG 25.3 %vol (16.0-22.0); Oxygen Saturation ABG 99.1 % (95.0-100.0); Oxyhemoglobin 98.4 % THb (90.0-100.0); PCO2 ABG 40.4 mmHg (35.0-45.0); PO2 ABG 177.1 mmHg (80.0-100.0); PO2 FiO2 Ratio Arterial Blood 2.53 %; Reduced Hemoglobin 0.8 %THb (0-5.0); Total Hemoglobin 18.1 g/dL (12.0-18.0); pH ABG 7.304 (7.350-7.450)
[2024-10-27 15:19] LABS: Modified Allen's Test Pass; Site Drawn RIGHT RADIAL
[2024-10-27 15:20] LABS: Device BIPAP; Non-Invasive Expiratory Pressure 5 CMH2O; Non-Invasive Inspiratory Pressure 25 CMH2O; Non-Invasive Vent Rate 14 /MIN
[2024-10-27 15:34] LABS: Lactic Acid Reflex 5.5 mmol/L (0.7-2.0)
[2024-10-27] MEDS: LACTATED RINGERS 1,000 ML 500 ML IV CONT (15:58)
[2024-10-27 16:01] LABS: Add Urine Microscopic? YES; Appearance Urine Clear (Clear); Bacteria Urine None Seen /hpf; Bilirubin Urine Negative (Negative); Blood Urine Trace (Negative); Color Urine Yellow (Yellow); Glucose Urine UA Negative (Negative); Ketones Urine Negative (Negative); Leukocyte Esterase Ur Negative LEU/UL (Negative); Need Manual Microscopic Reviewed; Nitrate Urine Negative (Negative); Non Pathogenic Casts >20; Protein Urine 2+ mg/dL (Negative); RBC Urine 0-2 /hpf (0-2); Specific Grav Ur 1.016 (1.001-1.035); Squamous Epithelial Cell Urine None Seen /hpf (Few); Urobilinogen Urine 0.2 mg/dL (<2.0); WBC Urine 0-5 /hpf (0-3); pH Urine 5.5 (5.0-9.0)
[2024-10-27 17:01] LABS: Reflex Lactic Acid Yes or No Add Lactic
--- NOTE | 2024-10-27 18:11 | ECG_ITS ---
Test Date: 2024-10-27 18:20:06 Measurements Intervals [place] Rate: 82 P: 49 FL: 169 QRS: 80 QRSD: 86 T: 77 QT: 367 QTc: 429 Interpretive Statements SINUS RHYTHM POSSIBLE RIGHT VENTRICULAR CONDUCTION DELAY [RSR (QR) IN V1/V2] Compared to ECG 10/27/2024 15:03:18 No significant changes Electronically Signed On 10-28-2024 13:29:09 CDT by Shahid Collins M.D.
--- NOTE | 2024-10-27 18:17 | PC.NURSE ---
mom Truman Norma called and would like the patient to call her when he can, and if he needs anything. states that the patient has a habit of signing out AMA from the hospital. her phone number is [phone]
[2024-10-27 18:20] LABS: Lactic Acid 1.3 mmol/L (0.7-2.0)
[2024-10-27 18:39] LABS: Troponin I 0.042 ng/mL (0.000-0.034)
[2024-10-27 19:00] LABS: Influenza A QL RT-PCR Negative (Negative); Influenza B QL RT-PCR Negative (Negative); RSV RNA, RT-PCR Negative (Negative); SARS-CoV-2 RNA PCR Negative (Negative)
--- NOTE | 2024-10-27 19:04 | P.HP_ITS ---
H&P: HPI History of Present Illness Date/Time: 10/27/24 19:04 Chief Complaint: Acute respiratory distress Narrative: 64-year-old male past medical history of NSTEMI, CAD, COPD, hypertension, alcohol use and hyperlipidemia presents to the hospital with altered mental status and respiratory distress. HPI is limited as patient is on the BiPAP. Patient states he does not remember how he got to the hospital. Patient denies shortness of breath, fever or chills. In the ED patient was placed on BiPAP due to respiratory failure with respiratory acidosis and hypercarbia. Patient's repeat blood gas did show much improvement the patient was not intubated. His lab work shows leukocytosis at 14.2, hemoconcentrated 18.7, sodium of 136, potassium of 5.1, lactic acid of 5.5 resolved to 1.3 after fluid bolus, 3 hour troponin was 0.042, BNP was 781, UA was negative for infection. Influenza A/B, RSV, COVID negative. Chest x-ray showed bilateral pneumonia. Review of Systems Review of Systems: 12 systems were reviewed and are negativ e except for as per HPI. [facility] Past Medical History Medical History Bilateral cataracts Non-STEMI (non-ST elevated myocardial infarction) Preop cardiovascular exam Shock CAD (coronary artery disease) Right lower lobe pneumonia Pneumonia Emphysema lung Hypertension Chronic hyponatremia Coronary artery disease Thoracic compression fracture Gastroesophageal reflux disease Ischemic cardiomyopathy EF is low as 30 to 35% in June 2023; improved to 60 to 65% on echo obtained in August 2023. Osteoporosis COPD with chronic bronchitis and emphysema Heavy alcohol use Anxiety and depression Hypercholesteremia Former smoker Surgical History Surgical History Hx of cataract surgery History of coronary artery stent placement (06/2023) x3 to the LAD. History of tonsillectomy Family History Family History Father Aneurysm Grandparent Black lung Social History Social History Social History: Surrogate medical decision maker: Valeriano Luz Elena, sibling. Code status: Full code. Smoking packs per day: 1.5 Smoking cigarettes per day: 30.0 Years smoked: 42 Smoking pack-years: 63.00 Smoking status: Former smoker Tobacco type: cigarettes Second hand tobacco smoke exposure: No Alcohol intake: current Drinks per week: 36 Alcohol use details: wine Substance use: never Substance use type: does not use Last use: Sunday Do You Feel Safe in your Home?: Yes Lack of Transportation: No Lack of Food: Never True Current Housing: I Have Housing Concerned About Future Housing: No Difficulty Paying Gas/Electric Bills: No Difficulty Paying for Meds: No Currently Unemployed: No Education: High School Diploma/GED Difficulty w/ Childcare or Family Care: No Living arrangements: alone Additional living arrangements comments: Lives alone in [place]. 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 Spiritual care concerns: No Meds Home Medications and Allergies Home Medications ?Medication ?Instructions ?Recorded ?Confirmed ?Type trazodone 100 mg tablet 100 mg PO HS 11/10/22 10/27/24 History aspirin 81 mg tablet,delayed 81 mg PO DAILY@0800 #90 tabs 06/19/23 10/27/24 Rx release calcium 100 mg capsule 100 mg PO DAILY 06/19/23 10/27/24 History losartan 25 mg tablet 12.5 mg (1/2 x 25 mg) PO DAILY #90 11/21/23 10/27/24 Rx tabs Trelegy Ellipta 100 mcg-62.5 1 inh inhalation QAM #60 ea 03/06/24 10/27/24 Rx mcg-25 mcg powder for inhalation (nrihqdvyies-pbouvtxkz-wzdffhqm) multivitamin (Daily Multi-Vitamin 1 tablet PO DAILY 03/13/24 10/27/24 History tablet) carvedilol 6.25 mg tablet 6.25 mg PO Q12H #60 tabs 05/23/24 10/27/24 Rx atorvastatin 80 mg tablet 80 mg PO HS #30 tabs 06/18/24 10/27/24 Rx albuterol sulfate 1.25 mg/3 mL 1.25 mg (3 mL) inhalation Q6H PRN 07/31/24 10/27/24 Rx solution for nebulization shortness of breath or wheezing #360 mL alendronate 70 mg tablet 70 mg PO WEEKLY #12 tabs 09/08/24 10/27/24 Rx aripiprazole 2 mg tablet 2 mg PO DAILY 09/08/24 10/27/24 History omeprazole 20 mg capsule,delayed 20 mg PO DAILY #90 caps 09/08/24 10/27/24 Rx release vitamin B complex-folic acid 0.4 1 tablet PO DAILY 09/08/24 10/27/24 History mg tablet (B Complex 1 (with folic acid)) ticagrelor 90 mg tablet (Brilinta) 90 mg PO Q12HR #180 tabs 09/24/24 10/27/24 Rx ensifentrine 3 mg/2.5 mL 2.5 ml inhalation QAM AND QPM #150 10/27/24 10/27/24 Rx suspension for nebulization mL (Ohtuvayre) Allergies Allergy/AdvReac Type Severity Reaction Status Date / Time No Known Allergies Allergy Verified 10/27/24 13:54 Vital Signs Vital Signs - 24 hr 10/27/24 13:27 10/27/24 13:45 10/27/24 13:54 Pulse Rate 135 H 130 H 123 H Respiratory Rate 39 H 47 H 35 H Blood Pressure 197/123 H Pulse Oximetry 96 97 Oxygen Delivery Room Air Fraction of Inspired Oxygen 10/27/24 13:55 10/27/24 14:14 10/27/24 14:15 Pulse Rate 116 H Respiratory Rate 47 H Blood Pressure Pulse Oximetry 97 98 Oxygen Delivery BiPAP BiPAP Fraction of Inspired Oxygen 70 70 10/27/24 14:15 10/27/24 14:42 10/27/24 14:45 Pulse Rate 112 H 104 H 105 H Respiratory Rate 47 H 34 H 37 H Blood Pressure Pulse Oximetry 98 98 97 Oxygen Delivery BiPAP Fraction of Inspired Oxygen 10/27/24 14:46 10/27/24 14:47 10/27/24 15:20 Pulse Rate 104 H 103 H Respiratory Rate 38 H 37 H Blood Pressure 114/90 105/76 Pulse Oximetry 97 97 100 Oxygen Delivery BiPAP Fraction of Inspired Oxygen 10/27/24 15:24 10/27/24 16:31 10/27/24 16:32 Pulse Rate 91 91 Respiratory Rate 27 H 25 H Blood Pressure 107/86 Pulse Oximetry 98 100 99 Oxygen Delivery BiPAP Fraction of Inspired Oxygen 50 10/27/24 16:45 10/27/24 16:46 10/27/24 17:00 Pulse Rate 87 95 87 Respiratory Rate 28 H 22 H 27 H Blood Pressure 106/73 Pulse Oximetry 100 100 98 Oxygen Delivery Fraction of Inspired Oxygen 10/27/24 17:01 10/27/24 17:15 10/27/24 17:16 Pulse Rate 86 85 87 Respiratory Rate 26 H 22 H 26 H Blood Pressure 104/73 105/81 Pulse Oximetry 98 97 97 Oxygen Delivery Fraction of Inspired Oxygen 10/27/24 17:30 10/27/24 17:31 10/27/24 17:45 Pulse Rate 85 80 80 Respiratory Rate 21 H 22 H 22 H Blood Pressure 108/75 Pulse Oximetry 99 100 99 Oxygen Delivery Fraction of Inspired Oxygen 10/27/24 17:46 10/27/24 18:00 10/27/24 18:01 Pulse Rate 81 79 85 Respiratory Rate 23 H 24 H 29 H Blood Pressure 109/70 111/76 Pulse Oximetry 100 99 99 Oxygen Delivery Fraction of Inspired Oxygen 10/27/24 18:15 10/27/24 18:16 10/27/24 18:24 Pulse Rate 83 84 85 Respiratory Rate 24 H 25 H 47 H Blood Pressure 121/81 Pulse Oximetry 98 99 100 Oxygen Delivery BiPAP Fraction of Inspired Oxygen 10/27/24 18:28 Pulse Rate 84 Respiratory Rate 25 H Blood Pressure 121/81 Pulse Oximetry 99 Oxygen Delivery Fraction of Inspired Oxygen Exam Narrative: General: well appearing, appears stated age. HEENT: normocephalic, atraumatic. Mucous membranes moist. EOMI, PERRLA, bilateral sclera anicteric, no conjunctival injection. Neck supple without JVD, lymphadenopathy, or bruit. Respiratory: clear to ascultation bilaterally. No rales/rhonic/wheezes. Cardiovascular: Regular rate and rhythm, normal S1-S2 upon ascultation. No murmurs, rubs, or clicks. PMI is nondisplaced, capillary refill less than 3 second. Abdomen: Soft, round, no pulsatile masses, nondistended and nontender. No rebound, no guarding. No CVA tenderness, no hepatosplenomegaly. Bowel sounds present to all four quadrants. No high pitch or tinkling sounds, resonant to percussion. Extremities: No cyanosis, clubbing, or edema present. Pulses are palpable 2/2. Active ROM to all four extremities. Neuro: Alert and orientated x 4. PERRLA. Cranial nerves 2-12 intact without focal deficit. Skin: Warm, dry, and intact, without rash, erythema, or lesion. Psych: pleasant, cooperative, normal speech, normal affect, no hallucinations, no dysarthia On BiPAP H&P: Results Labs Labs: Short CBC 10/27/24 Range/Units 13:51 WBC 14.2 H (4.5-10.0) K/mm3 Hgb 18.7 H D (14.0-18.0) g/dL Hct 54.1 H (42.0-52.0) % Plt Count 307 D (150-375) k/mm3 BMP 10/27/24 13:51 Sodium 136 L Potassium 5.1 H Chloride 101 Carbon Dioxide 21 L BUN 16 Creatinine 0.99 Glucose 288 H Calcium 8.8 Cardiac Enzymes 10/27/24 10/27/24 10/27/24 Range/Units 13:51 13:51 17:59 Troponin I < 0.012 Cancelled 0.042 H* D (0.000-0.034) ng/mL Liver Function 10/27/24 Range/Units 13:51 Total Bilirubin 0.5 (0.2-1.3) mg/dL AST 63 H (17-59) U/L ALT 35 (6-50) U/L Alkaline Phosphatase 104 (38-126) U/L Albumin 4.6 (3.5-5.1) g/dL Urine 10/27/24 Range/Units 15:31 Urine Color Yellow (Yellow) Urine Appearance Clear (Clear) Urine pH 5.5 (5.0-9.0) Ur Specific [place] 1.016 (1.001-1.035) Urine Protein 2+ H (Negative) mg/dL Urine Glucose (UA) Negative (Negative) mg/dL Assessment and Plan Assessment and plan (1) Pneumonia: Code(s): J18.9 - Pneumonia, unspecified organism Status: Acute Assessment and Plan: Azithromycin and Rocephin Gentle IVF (2) Acute respiratory distress: Code(s): R06.03 - Acute respiratory distress Status: Acute Assessment and Plan: With hypercarbia Secondary to above Continues BiPAP ABG in the morning (3) COPD with chronic bronchitis and emphysema: Code(s): J44.89 - Other specified chronic obstructive pulmonary disease; J43.9 - Emphys naima, unspecified Status: Chronic Assessment and Plan: IV steroids DuoNebs (4) Alcohol dependence: Code(s): F10.20 - Alcohol dependence, uncomplicated Status: Acute Assessment and Plan: [facility] protocol Banana bag, Ativan and thiamine (5) Hypercholesteremia: Code(s): E78.00 - Pure hypercholesterolemia, unspecified Status: Acute Assessment and Plan: Nursing unable to complete home med list as patient does not know what he is taking (6) Hypertension: Code(s): I10 - Essential (primary) hypertension Status: Chronic Assessment and Plan: Same as above Quality VTE Prophylaxis VTE prophylaxis: mechanical ordered and pharmacologic ordered Nursing currently unable to complete med list is patient does not know what he is taking Hospitalist MIPS Advance Care Plan I have confirmed that the patient's Advanced Care Plan is present, code status is documented, or surrogate decision maker is listed in patient medical record.: Yes
--- NOTE | 2024-10-27 19:48 | ADMGEN ---
This patient, Edgar Laguna, was admitted to IMU Room 201-01. Patient/family oriented to hospital policies and general routines including ID bracelet, bed and alarms, visiting hours, pain management, procedures, bathroom and other care routines, personal items, smoking policy, room service/diet, and visiting hours. Information on how to activate the Rapid Response Team has been discussed. Patient/Family are encouraged to report perceived risks to care and to ask questions if they do not understand what they are told or what they should do.
[2024-10-27] MEDS: carvediloL 6.25 MG TABLET PO (23:16)
[2024-10-27] MEDS: TICAGRELOR 90 MG TABLET PO (23:16)
[2024-10-27] MEDS: methylPREDNISolone SOD SUCC 125 MG VIAL 60 MG IV PUSH (23:16)
[2024-10-27] MEDS: THIAMINE HCL INJ 100 MG, FOLIC ACID INJ 1 MG, MAGNESIUM SULFATE INJ 1 GM, MULTIVITAMINS... IV CONT (23:18)
[2024-10-27] MEDS: traZODone HCL 50 MG TABLET 100 MG PO (23:18)
[2024-10-28] VITALS (28 sets, daily range): BP systolic 108–136; BP diastolic 58–85; PULSE 68–92; RESP 18–90; TEMP 36.3–37.1; O2SAT 92–100
--- NOTE | 2024-10-28 | ECHO_ITS ---
Patient Info Name: Edgar Laguna Age: 64 years : 1960 Gender: Male Ht: 71 in Wt: 177 lbs BSA: 2.01 m2 HR: 73 bpm BP: 126 / 68 mmHg Technical Quality: Poor Exam Date: 10/28/2024 1:26 PM Patient Status: I Admit Date: 10/27/2024 Exam Type: CA echo doppler color flow Complete two-dimensional, color flow and Doppler transthoracic echocardiogram is performed. Staff Referring Physician: Lebron Roa Supervisor Photostat: Belem Cross Attending Provider: Miah Meneses Summary 1. Complete two-dimensional, color flow and Doppler transthoracic echocardiogram is performed. 2. Technically suboptimal study due to poor sonographic images. 3. Left ventricular chamber dimension is normal. 4. Left ventricular systolic function is normal, estimated at 60-65. 5. The left ventricular diastolic function is abnormal. 6. E/e' 16 is elevated. 7. Left atrial chamber dimension is mildly enlarged. 8. The aortic valve is not well visualized. Cannot determine number of aortic valve leaflets. 9. There is moderate mitral valve regurgitation. 10. No pulmonary hypertension, estimated pulmonary arterial systolic pressure is 33 mmHg. Left Ventricle E/e' 16 is elevated. Left ventricular chamber dimension is normal. Left ventricular systolic function is normal, estimated at 60-65. The left ventricular diastolic function is abnormal. Technically suboptimal study due to poor sonographic images. Right Ventricle Right ventricular chamber dimension is normal. Right ventricular systolic function is normal. Left Atria Left atrial chamber dimension is mildly enlarged. Right Atria Right atrial chamber dimension is normal. Aortic Valve The aortic valve is not well visualized. Cannot determine number of aortic valve leaflets. There is no aortic valve stenosis. based on normal valve area and gradients. There is no aortic valve regurgitation. Pulmonic Valve There is no pulmonic regurgitation. Mitral Valve There is no mitral valve stenosis. There is moderate mitral valve regurgitation. Tricuspid Valve There is no tricuspid valve regurgitation. No pulmonary hypertension, estimated pulmonary arterial systolic pressure is 33 mmHg. Pericardium/Pleural There is no pericardial effusion. Inferior Vena Cava Normal inferior vena cava with >50% collapse upon inspiration consistent with normal right atrial pressure, 5 mmHg. Aorta The aortic root size at the sinus of Valsalva is normal. Left Ventricular Outflow Tract Name Value Normal LVOT 2D LVOT Diameter 1.9 cm LVOT Doppler LVOT Peak Velocity 112 cm/s LVOT Peak Gradient 5 mmHg LVOT Mean Gradient 3 mmHg LVOT VTI 22 cm LVOT VTI/AV VTI Ratio 0.8 LVOT Stroke Volume 61 ml LVOT CO 12.5 l/min LVOT CI 6.2 l/min/m2 Mitral Valve Name Value Normal MV Doppler MV Peak Gradient 15 mmHg MV Mean Gradient 6 mmHg MV Area (Cont Eq VTI) 1.0 cm2 MV Diastolic Function MV E Peak Velocity 160 cm/s MV A Peak Velocity 129 cm/s MV E/A 1.2 MV Decel Time (PW) 372 ms MV Annular TDI MV E/e' (Septal) 18.8 MV E/e' (Lateral) 14.4 MV E/e' (Average) 16.6 Tricuspid Valve Name Value Normal TV Regurgitation Doppler TR Peak Velocity 265 cm/s TR Peak Gradient 16 mmHg Estimated PAP/RSVP RA Pressure 5 mmHg <=5 PA Systolic Pressure 33 mmHg <36 RV Systolic Pressure 33 mmHg <36 TV Annular TDI TV Lateral Pilar s' Velocity 14.5 cm/s >=9.5 Aorta Name Value Normal Ascending Aorta Ao Root Diameter (MM) 3.2 cm Ao Root Diam Index (MM) 1.6 cm/m2 Aortic Valve Name Value Normal AV Doppler AV Peak Velocity 141 cm/s AV Peak Gradient 8 mmHg AV Mean Gradient 5 mmHg AV VTI 29 cm AV Area (Cont Eq VTI) 2.1 cm2 >=3.0 AV Area (Cont Eq Omid) 2.2 cm2 AV DI (Moid) 0.79 AV Regurgitation 2D LVOT Area 2.8 cm2 Ventricles Name Value Normal LV Dimensions 2D/MM IVS Diastolic Thickness (2D) 0.9 cm 0.6-1.0 LVID Diastole (2D) 4.4 cm 4.2-5.8 LVIW Diastolic Thickness (2D) 1.0 cm 0.6-1.0 LVID Systole (2D) 3.1 cm 2.5-4.0 LVOT Diameter 1.9 cm LV Mass (2D Cubed) 133.43 g 88.00-224.00 LV Mass Index (2D Cubed) 66 g/m2 49-115 Relative Wall Thickness (2D) 0.44 <=0.42 LV Fractional Shortening/Ejection Fraction 2D/MM LV Fractional Shortening (2D) 30 % 25-43 LV EF (2D Teichholz) 57 % LV Diastolic Volume (4C MOD) 110 ml LV EF (4C MOD) 67 % LV Diastolic Volume (2C MOD) 112 ml LV EF (2C MOD) 63 % LV Diastolic Volume (BP MOD) 113 ml 62-150 LV Diastolic Volume Index (BP MOD) 56 ml/m2 34-74 LV Systolic Volume (BP MOD) 41 ml 21-61 LV Systolic Volume Index (BP MOD) 20 ml/m2 11-31 LV EF (BP MOD) 64 % 52-72 LV Diastolic Length (4C) 8.3 cm LV Systolic Length (4C) 7.0 cm LV Stroke Volume (4C MOD) 73 ml Atria Name Value Normal LA Dimensions LA Dimension (MM) 0.0 cm 3.0-4.0 LA Volume (4C A-L) 49 ml LA Volume (BP A-L) 66 ml RA Dimensions RA Systolic Major [place] Length (4C) 4.2 cm 2.1-2.7 RA Area (4C) 13.0 cm2 <=18.0 Report Signatures
[2024-10-28] MEDS: ALBUTEROL SULFATE NEB 2.5 MG/3 ML INH INHALATION ×2 (01:47→08:27)
[2024-10-28] MEDS: methylPREDNISolone SOD SUCC 125 MG VIAL 60 MG IV PUSH (04:29)
[2024-10-28 05:29] LABS: Alveolar/Arterial O2 Gradient 86.4 mmHg; Base Excess ABG -0.7 mEq/l (+/-2.0); Carboxyhemoglobin 0.7 % THb (0-2.0); Fractional Inspired Oxygen 30 %; Oxygen Content ABG 19.4 %vol (16.0-22.0); Oxygen Saturation ABG 96.9 % (95.0-100.0); PCO2 ABG 34.9 mmHg (35.0-45.0); PO2 ABG 86.5 mmHg (80.0-100.0); PO2 FiO2 Ratio Arterial Blood 2.88 %; Reduced Hemoglobin 3.3 %THb (0-5.0); Total Hemoglobin 14.3 g/dL (12.0-18.0); pH ABG 7.436 (7.350-7.450)
[2024-10-28 05:31] LABS: Device OTHER DEVICE; Modified Allen's Test Pass; Site Drawn RIGHT RADIAL
[2024-10-28] MEDS: FLUTICASONE/UMECLIDIN/VILANTER 100-62.5-25 MCG ELLIPTA 1 PUFF INHALATION (08:41)
--- NOTE | 2024-10-28 09:12 | PM.IMPN ---
Progress Note: A&P Assessment and Plan (1) Pneumonia: Code(s): J18.9 - Pneumonia, unspecified organism Status: Acute (2) Acute respiratory distress: Code(s): R06.03 - Acute respiratory distress Status: Acute (3) COPD with chronic bronchitis and emphysema: Code(s): J44.89 - Other specified chronic obstructive pulmonary disease; J43.9 - Emphysema, unspecified Status: Chronic (4) Alcohol dependence: Code(s): F10.20 - Alcohol dependence, uncomplicated Status: Acute (5) Hypercholesteremia: Code(s): E78.00 - Pure hypercholesterolemia, unspecified Status: Acute (6) Hypertension: Code(s): I10 - Essential (primary) hypertension Status: Chronic Plan 64-year-old male past medical history of NSTEMI, CAD, COPD, hypertension, alcohol use and hyperlipidemia presents to the hospital with altered mental status and respiratory distress. Patient states he does not remember how he got to the hospital. Patient reports shortness of breath and palpitations prior to presentation. In the ED patient was placed on BiPAP due to respiratory failure with respiratory acidosis and hypercarbia. Patient's repeat blood gas did show much improvement the patient was not intubated. His lab work shows leukocytosis at 14.2, hemoconcentrated 18.7, sodium of 136, potassium of 5.1, lactic acid of 5.5 resolved to 1.3 after fluid bolus, 3 hour troponin was 0.042, BNP was 781, UA was negative for infection. Influenza A/B, RSV, COVID negative. Chest x-ray showed bilateral pneumonia. fu troponin up to 0.088. bipap remvoed this am and switched to nasal cannula. no active wheezing. will stop iv steroid. continue antibiotics with iv ceftraixone and azithromycin. add mucinex. continue bronchodilators. copd possible exacerbation. switch to oral steroid. hypercapnic resp failure: abg imrpoved with bipap. will stop bipap. recheck abg in am ams likely due to hypercapnic resp failure. cad s/p stents in the past copd hx of nstemi htn alcohol use hyperlipidemia DVT proph: lovenox code status; full code hx of Thoracic compression fracture Gastroesophageal reflux disease Ischemic cardiomyopathy: EF is low as 30 to 35% in June 2023; improved to 60 to 65% on echo obtained in August 2023. osteoporosis Subjective Date/time seen: 10/28/24 09:12 Interval history: State on BiPAP overnight. ABG reviewed. Feels better. Review of Systems Review of Systems: 12 systems were reviewed and are negative except for as per HPI. Exam Narrative: General: well appearing, appears stated age. HEENT: normocephalic, atraumatic. Mucous membranes moist. Respiratory: clear to ascultation bilaterally. No rales/rhonic/wheezes. Cardiovascular: Regular rate and rhythm, normal S1-S2 upon ascultation. No murmurs, rubs, or clicks. Abdomen: Soft, round, no pulsatile masses, nondistended and nontender. Extremities: No cyanosis, clubbing, or edema present. Pulses are palpable 2/2. Active ROM to all four extremities. Neuro: Alert and orientated x 4. PERRLA. Cranial nerves 2-12 intact without focal deficit. Skin: Warm, dry, and intact, without rash, erythema, or lesion. Psych: pleasant, cooperative, normal speech, normal affect, no hallucinations, no dysarthia Objective Data Vital Signs Vital Signs: Vital Signs - 24 hr 10/27/24 13:27 10/27/24 13:45 10/27/24 13:54 Temperature Pulse Rate 135 H 130 H 123 H Pulse Rate [Monitor] Respiratory Rate 39 H 47 H 35 H Blood Pressure 197/123 H Pulse Oximetry 96 97 Oxygen Delivery Room Air Oxygen Flow Rate Fraction of Inspired Oxygen 10/27/24 13:55 10/27/24 14:14 10/27/24 14:15 Temperature Pulse Rate 116 H Pulse Rate [Monitor] Respiratory Rate 47 H Blood Pressure Pulse Oximetry 97 98 Oxygen Delivery BiPAP BiPAP Oxygen Flow Rate Fraction of Inspired Oxygen 70 70 10/27/24 14:15 10/27/24 14:42 10/27/24 14:45 Temperature Pulse Rate 112 H 104 H 105 H Pulse Rate [Monitor] Respiratory Rate 47 H 34 H 37 H Blood Pressure Pulse Oximetry 98 98 97 Oxygen Delivery BiPAP Oxygen Flow Rate Fraction of Inspired Oxygen 10/27/24 14:46 10/27/24 14:47 10/27/24 15:20 Temperature Pulse Rate 104 H 103 H Pulse Rate [Monitor] Respiratory Rate 38 H 37 H Blood Pressure 114/90 105/76 Pulse Oximetry 97 97 100 Oxygen Delivery BiPAP Oxygen Flow Rate Fraction of Inspired Oxygen 10/27/24 15:24 10/27/24 16:31 10/27/24 16:32 Temperature Pulse Rate 91 91 Pulse Rate [Monitor] Respiratory Rate 27 H 25 H Blood Pressure 107/86 Pulse Oximetry 98 100 99 Oxygen Delivery BiPAP Oxygen Flow Rate Fraction of Inspired Oxygen 50 10/27/24 16:45 10/27/24 16:46 10/27/24 17:00 Temperature Pulse Rate 87 95 87 Pulse Rate [Monitor] Respiratory Rate 28 H 22 H 27 H Blood Pressure 106/73 Pulse Oximetry 100 100 98 Oxygen Delivery Oxygen Flow Rate Fraction of Inspired Oxygen 10/27/24 17:01 10/27/24 17:15 10/27/24 17:16 Temperature Pulse Rate 86 85 87 Pulse Rate [Monitor] Respiratory Rate 26 H 22 H 26 H Blood Pressure 104/73 105/81 Pulse Oximetry 98 97 97 Oxygen Delivery Oxygen Flow Rate Fraction of Inspired Oxygen 10/27/24 17:30 10/27/24 17:31 10/27/24 17:45 Temperature Pulse Rate 85 80 80 Pulse Rate [Monitor] Respiratory Rate 21 H 22 H 22 H Blood Pressure 108/75 Pulse Oximetry 99 100 99 Oxygen Delivery Oxygen Flow Rate Fraction of Inspired Oxygen 10/27/24 17:46 10/27/24 18:00 10/27/24 18:01 Temperature Pulse Rate 81 79 85 Pulse Rate [Monitor] Respiratory Rate 23 H 24 H 29 H Blood Pressure 109/70 111/76 Pulse Oximetry 100 99 99 Oxygen Delivery Oxygen Flow Rate Fraction of Inspired Oxygen 10/27/24 18:15 10/27/24 18:16 10/27/24 18:24 Temperature Pulse Rate 83 84 85 Pulse Rate [Monitor] Respiratory Rate 24 H 25 H 47 H Blood Pressure 121/81 Pulse Oximetry 98 99 100 Oxygen Delivery BiPAP Oxygen Flow Rate Fraction of Inspired Oxygen 10/27/24 18:28 10/27/24 19:15 10/27/24 19:42 Temperature 98.8 F Pulse Rate 84 82 85 Pulse Rate [Monitor] Respiratory Rate 25 H 24 H 33 H Blood Pressure 121/81 130/73 Pulse Oximetry 99 97 98 Oxygen Delivery BiPAP Oxygen Flow Rate Fraction of Inspired Oxygen 10/27/24 20:00 10/27/24 20:00 10/27/24 20:13 Temperature Pulse Rate 95 98 92 Pulse Rate [Monitor] Respiratory Rate 22 H 90 H Blood Pressure Pulse Oximetry 98 Oxygen Delivery BiPAP Oxygen Flow Rate Fraction of Inspired Oxygen 50 10/27/24 20:23 10/27/24 22:00 10/27/24 22:11 Temperature Pulse Rate 92 90 Pulse Rate [Monitor] 90 Respiratory Rate 90 H Blood Pressure Pulse Oximetry Oxygen Delivery Oxygen Flow Rate Fraction of Inspired Oxygen 10/27/24 23:16 10/27/24 23:27 10/27/24 23:34 Temperature Pulse Rate 94 88 Pulse Rate [Monitor] 88 Respiratory Rate 27 H Blood Pressure 130/73 Pulse Oximetry 98 Oxygen Delivery BiPAP Oxygen Flow Rate Fraction of Inspired Oxygen 10/27/24 23:34 10/27/24 23:34 10/28/24 00:00 Temperature 98.7 F Pulse Rate 88 88 88 Pulse Rate [Monitor] Respiratory Rate 27 H 33 H Blood Pressure 136/85 Pulse Oximetry 98 96 Oxygen Delivery BiPAP Oxygen Flow Rate Fraction of Inspired Oxygen 50 10/28/24 01:30 10/28/24 01:47 10/28/24 02:00 Temperature Pulse Rate 88 92 68 Pulse Rate [Monitor] Respiratory Rate 22 H 90 H Blood Pressure Pulse Oximetry 98 Oxygen Delivery BiPAP Oxygen Flow Rate Fraction of Inspired Oxygen 10/28/24 02:07 10/28/24 04:00 10/28/24 04:00 Temperature 98.7 F Pulse Rate 92 73 Pulse Rate [Monitor] 72 Respiratory Rate 90 H 33 H Blood Pressure 108/69 108/69 Pulse Oximetry 96 Oxygen Delivery Oxygen Flow Rate Fraction of Inspired Oxygen 10/28/24 04:00 10/28/24 04:00 10/28/24 06:00 Temperature Pulse Rate 72 72 85 Pulse Rate [Monitor] Respiratory Rate 33 H Blood Pressure Pulse Oximetry 96 Oxygen Delivery BiPAP Oxygen Flow Rate Fraction of Inspired Oxygen 50 10/28/24 08:00 10/28/24 08:27 10/28/24 08:33 Temperature 97.3 F L Pulse Rate 72 85 78 Pulse Rate [Monitor] Respiratory Rate 28 H 18 18 Blood Pressure 126/68 Pulse Oximetry 97 94 Oxygen Delivery Nasal Cannula Oxygen Flow Rate 2 Fraction of Inspired Oxygen 10/28/24 08:34 10/28/24 08:37 Temperature Pulse Rate 72 71 Pulse Rate [Monitor] Respiratory Rate 18 Blood Pressure Pulse Oximetry 94 Oxygen Delivery Oxygen Flow Rate Fraction of Inspired Oxygen Intake/Output Intake/Output: Intake & Output 10/25/24 10/26/24 10/27/24 10/28/24 23:59 23:59 23:59 23:59 Intake Total 2400 490 Output Total 450 1800 Balance 1950 -1310 Meds/Results Medications: Active Medications Generic Name Dose Route Start Last Admin Trade Name Freq PRN Reason Stop Dose Admin Albuterol 2.5 mg 10/27/24 20:00 10/28/24 08:27 Albuterol Sulfate Neb 2.5 Mg/3 Ml Inh INHALATION 2.5 mg Q6HRT ESTEFANÍA Administration Alendronate Sodium 70 mg 10/29/24 09:00 Alendronate Sodium 70 Mg Tablet PO WEEKLY ESTEFANÍA Aripiprazole 2 mg 10/28/24 09:00 Aripiprazole 2 Mg Tablet PO DAILY [facility] Aspirin 81 mg 10/28/24 08:00 Aspirin 81 Mg Enteric Tablet PO DAILY@0800 ESTEFANÍA Atorvastatin Calcium 80 mg 10/28/24 21:00 Atorvastatin 40 Mg Tablet PO HS [facility] Carvedilol 6.25 mg 10/27/24 22:20 10/27/24 23:16 Carvedilol 6.25 Mg Tablet PO 6.25 mg Q12HR ESTEFANÍA Administration Enoxaparin Sodium 40 mg 10/28/24 09:00 Enoxaparin 40 Mg/0.4 Ml Syringe SUB-Q DAILY ESTEFANÍA Fluticasone/Umeclidinium/Vilanterol 1 puff 10/28/24 08:00 10/28/24 08:41 Fluticasone/Umeclidin/Vilanter 100-62.5-25 Mcg Ellipta INHALATION 1 puff DAILYRT ESTEFANÍA Administration Ceftriaxone Sodium 1 gm in 50 mls @ 100 mls/hr 10/28/24 14:00 Rocephin 1 Gm/Ns 50 Ml IVPB Q24H ESTEFANÍA Azithromycin 500 mg in 250 mls @ 250 mls/hr 10/28/24 14:00 Zithromax IVPB Q24H [facility] Sodium Chloride 1,000 mls @ 75 mls/hr 10/27/24 22:10 Normal Saline Iv IV CONT .[id number] ESTEFANÍA Lorazepam 2 mg 10/27/24 22:09 Lorazepam Inj (*Crx) 2 Mg/Ml Vial IV PUSH Q4H PRN CIWA 8-15 Losartan Potassium 12.5 mg 10/28/24 09:00 Losartan Potassium 12.5 Mg Tablet PO DAILY ESTEFANÍA Methylprednisolone Sodium Succinate 60 mg 10/27/24 20:00 10/28/24 04:29 Methylprednisolone Sod Succ 125 Mg Vial IV PUSH 60 mg Q6H ESTEFANÍA Administration Nonformulary 1 each 10/27/24 22:24 Nutritional XX 10/28/24 22:23 Supplement(Calcium PRN PRN 100 Mg Capsule PROTOCOL Thiamine HCl 100 mg 10/28/24 09:00 Thiamine Hcl 200 Mg/2 Ml Vial IV PUSH DAILY ESTEFANÍA Ticagrelor 90 mg 10/27/24 22:15 10/27/24 23:16 Ticagrelor 90 Mg Tablet PO 90 mg Q12HR ESTEFANÍA Administration Trazodone HCl 100 mg 10/27/24 23:10 10/27/24 23:18 Trazodone Hcl 50 Mg Tablet PO 100 mg HS ESTEFANÍA Administration Radiology Results: ITS Impressions Chest X-Ray 10/27/24 13:50 IMPRESSION: Bilateral basal pneumonia. Follow-up to resolution advised. Labs Labs: Laboratory Results - last 24 hr 10/27/24 10/27/24 10/27/24 13:49 13:51 13:51 WBC 14.2 H RBC 5.78 Hgb 18.7 H D Hct 54.1 H MCV 93.6 MCH 32.4 MCHC 34.6 RDW 12.3 Plt Count 307 D MPV 8.3 Immature Gran % (Auto) 0.6 H Neut % (Auto) 53.3 Lymph % (Auto) 36.5 [place] % (Auto) 6.7 Eos % (Auto) 2.2 Baso % (Auto) 0.7 Lymph # (Auto) 5.19 H [place] # (Auto) 1.0 H Eos # (Auto) 0.3 Baso # (Auto) 0.1 Abs Immat Gran (auto) 0.09 H Absolute Neuts (auto) 7.6 H Absolute Nucleated RBC 0.000 Nucleated RBC % 0.0 PT 12.9 INR 0.9 APTT 32.6 Puncture Site ABG pH ABG pCO2 ABG pO2 ABG PO2/FiO2 Ratio ABG HCO3 ABG O2 Saturation ABG O2 Content ABG Base Excess A-a Gradient Oxyhemoglobin Carboxyhemoglobin Methemoglobin Reduced Hemoglobin Total Hemoglobin O2 Delivery Device O2 Liters/Min Vent Rate FiO2 Expiratory Pressure Inspiratory Pressure Sodium 136 L Potassium 5.1 H Chloride 101 Carbon Dioxide 21 L Anion Gap 14 H BUN 16 Creatinine 0.99 Estim Creat Clear Calc 75 Estimated GFR > 60 Glucose 288 H Lactic Acid 5.5 H* Calcium 8.8 Total Bilirubin 0.5 AST 63 H ALT 35 Alkaline Phosphatase 104 Troponin I < 0.012 Cancelled C-Reactive Protein < 0.5 NT-Pro-B Natriuret Pep 781 H Total Protein 8.0 Albumin 4.6 Urine Color Urine Appearance Urine pH Ur Specific [place] Urine Protein Urine Glucose (UA) Urine Ketones Ur Blood (Man) Urine Nitrate Urine Bilirubin Urine Urobilinogen Add Ur Microanalysis Leukocyte Esterase Rfl Urine RBC Urine WBC Ur Squamous Epith Cells Urine Bacteria Urine Casts Ethyl Alcohol < 10 Influenza A (RT-PCR) Influenza B (RT-PCR) RSV (RT-PCR) SARS-CoV-2 RNA (RT-PCR) 10/27/24 10/27/24 10/27/24 13:53 15:08 15:31 WBC RBC Hgb Hct MCV MCH MCHC RDW Plt Count MPV Immature Gran % (Auto) Neut % (Auto) Lymph % (Auto) [place] % (Auto) Eos % (Auto) Baso % (Auto) Lymph # (Auto) [place] # (Auto) Eos # (Auto) Baso # (Auto) Abs Immat Gran (auto) Absolute Neuts (auto) Absolute Nucleated RBC Nucleated RBC % PT INR APTT Puncture Site Right radial Right radial ABG pH 7.122 L* 7.304 L ABG pCO2 63.3 H* 40.4 ABG pO2 146.4 H 177.1 H ABG PO2/FiO2 Ratio 2.09 2.53 ABG HCO3 20.2 L 19.6 L ABG O2 Saturation 98.1 99.1 ABG O2 Content 28.0 H 25.3 H ABG Base Excess -10.6 -6.3 A-a Gradient 284.7 278.6 Oxyhemoglobin 97.5 98.4 Carboxyhemoglobin 0.1 0.3 Methemoglobin 0.6 0.5 Reduced Hemoglobin 1.8 0.8 Total Hemoglobin 20.3 H 18.1 H O2 Delivery Device Bipap Bipap O2 Liters/Min Not Reportable Not Reportable Vent Rate 14 FiO2 70 70 Expiratory Pressure 8 5 Inspiratory Pressure 16 25 Sodium Potassium Chloride Carbon Dioxide Anion Gap BUN Creatinine Estim Creat Clear Calc Estimated GFR Glucose Lactic Acid Calcium Total Bilirubin AST ALT Alkaline Phosphatase Troponin I C-Reactive Protein NT-Pro-B Natriuret Pep Total Protein Albumin Urine Color Yellow Urine Appearance Clear Urine pH 5.5 Ur Specific [place] 1.016 Urine Protein 2+ H Urine Glucose (UA) Negative Urine Ketones Negative Ur Blood (Man) Trace Urine Nitrate Negative Urine Bilirubin Negative Urine Urobilinogen 0.2 Add Ur Microanalysis Reviewed Leukocyte Esterase Rfl Negative Urine RBC 0-2 Urine WBC 0-5 Ur Squamous Epith Cells None seen Urine Bacteria None seen Urine Casts >20 Ethyl Alcohol Influenza A (RT-PCR) Influenza B (RT-PCR) RSV (RT-PCR) SARS-CoV-2 RNA (RT-PCR) 10/27/24 10/27/24 10/28/24 17:59 18:19 05:12 WBC RBC Hgb Hct MCV MCH MCHC RDW Plt Count MPV Immature Gran % (Auto) Neut % (Auto) Lymph % (Auto) [place] % (Auto) Eos % (Auto) Baso % (Auto) Lymph # (Auto) [place] # (Auto) Eos # (Auto) Baso # (Auto) Abs Immat Gran (auto) Absolute Neuts (auto) Absolute Nucleated RBC Nucleated RBC % PT INR APTT Puncture Site Right radial ABG pH 7.436 ABG pCO2 34.9 L ABG pO2 86.5 ABG PO2/FiO2 Ratio 2.88 ABG HCO3 23.0 ABG O2 Saturation 96.9 ABG O2 Content 19.4 ABG Base Excess -0.7 A-a Gradient 86.4 Oxyhemoglobin 96.0 Carboxyhemoglobin 0.7 Methemoglobin 0.0 Reduced Hemoglobin 3.3 Total Hemoglobin 14.3 O2 Delivery Device Other device O2 Liters/Min Not Reportable Vent Rate FiO2 30 Expiratory Pressure Inspiratory Pressure Sodium Potassium Chloride Carbon Dioxide Anion Gap BUN Creatinine Estim Creat Clear Calc Estimated GFR Glucose Lactic Acid 1.3 Calcium Total Bilirubin AST ALT Alkaline Phosphatase Troponin I 0.042 H* D C-Reactive Protein NT-Pro-B Natriuret Pep Total Protein Albumin Urine Color Urine Appearance Urine pH Ur Specific [place] Urine Protein Urine Glucose (UA) Urine Ketones Ur Blood (Man) Urine Nitrate Urine Bilirubin Urine Urobilinogen Add Ur Microanalysis Leukocyte Esterase Rfl Urine RBC Urine WBC Ur Squamous Epith Cells Urine Bacteria Urine Casts Ethyl Alcohol Influenza A (RT-PCR) Negative Influenza B (RT-PCR) Negative RSV (RT-PCR) Negative SARS-CoV-2 RNA (RT-PCR) Negative
[2024-10-28] MEDS: ASPIRIN 81 MG ENTERIC TABLET PO (09:43)
[2024-10-28] MEDS: carvediloL 6.25 MG TABLET PO ×2 (09:43→21:05)
[2024-10-28] MEDS: TICAGRELOR 90 MG TABLET PO ×2 (09:43→21:05)
[2024-10-28] MEDS: ENOXAPARIN 40 MG/0.4 ML SYRINGE SUB-Q (09:43)
[2024-10-28] MEDS: LOSARTAN POTASSIUM 12.5 MG TABLET PO (09:43)
[2024-10-28] MEDS: ARIPiprazole 2 MG TABLET PO (09:43)
[2024-10-28] MEDS: THIAMINE HCL 200 MG/2 ML VIAL 100 MG IV PUSH (09:44)
[2024-10-28 10:07] LABS: Hematocrit 39.8 % (42.0-52.0); Hemoglobin 13.8 g/dL (14.0-18.0); Mean Corpuscular HGB Conc 34.7 g/dl (32-36); Mean Corpuscular Hemoglobin 31.9 pg (26-34); Mean Corpuscular Volume 91.9 fl (80-100); Mean Platelet Volume 8.5 fl (7.4-10.4); Platelet Count Result 178 k/mm3 (150-375); Red Blood Count 4.33 M/mm3 (4.6-6.20); Red Cell Distribution Width 12.5 % (11.5-14.5); White Blood Count 9.6 K/mm3 (4.5-10.0)
[2024-10-28 10:09] LABS: Alanine Aminotransferase 30 U/L (6-50); Alkaline Phosphatase 61 U/L (38-126); Anion Gap 10 mmol/L (4-12); Aspartate Amino Transferase 36 U/L (17-59); Bilirubin,Total 0.5 mg/dL (0.2-1.3); Blood Urea Nitrogen 13 mg/dL (9-20); Calcium 8.9 mg/dL (8.4-10.2); Carbon Dioxide 25 mmol/L (22-30); Chloride 99 mmol/L (98-107); Estimated CRCL calculation 116 ml/min; Estimated Glomerular Filt Rate > 60; Glucose 280 mg/dL (65-110); Potassium 4.1 mmol/L (3.4-5.0); Sodium 134 mmol/L (137-145)
[2024-10-28 10:25] LABS: Troponin I 0.088 ng/mL (0.000-0.034)
[2024-10-28 11:36] LABS: Glucose Point of Care 213 mg/dl (65-105)
[2024-10-28 13:05] LABS: Hemoglobin A1C 5.1 % (<5.7)
[2024-10-28] MEDS: INSULIN ASPART (*BKC) 100 UNITS/ML SUB-Q (14:31)
[2024-10-28] MEDS: AZITHROMYCIN 500 MG/NS 250 ML 500 MG/250 ML BAG 250 MG IVPB (14:33)
[2024-10-28] MEDS: IPRATROPIUM 0.5 MG/ALBUTEROL SULFATE 2.5 MG AMPUL.NEB 3 ML INHALATION ×2 (15:19→19:55)
[2024-10-28 15:39] LABS: Glucose Point of Care 130 mg/dl (65-105)
[2024-10-28 15:47] LABS: MRSA (PCR) NOT DETECTED (NOT DETECTE)
[2024-10-28 20:15] LABS: Glucose Point of Care 114 mg/dl (65-105)
[2024-10-28] MEDS: traZODone HCL 50 MG TABLET 100 MG PO (21:04)
[2024-10-28] MEDS: ATORVASTATIN 40 MG TABLET 80 MG PO (21:04)
[2024-10-29] VITALS (25 sets, daily range): BP systolic 109–144; BP diastolic 57–84; PULSE 60–89; RESP 2–20; TEMP 36.4–36.8; O2SAT 92–96
[2024-10-29] MEDS: IPRATROPIUM 0.5 MG/ALBUTEROL SULFATE 2.5 MG AMPUL.NEB 3 ML INHALATION ×3 (02:20→14:23)
[2024-10-29 04:23] LABS: Basophils Percent Auto 0.3 % (0.2-1.2); Eosinophils Percent Auto 0.2 % (0-4.4); Hematocrit 37.4 % (42.0-52.0); Hemoglobin 12.4 g/dL (14.0-18.0); Immature Granulocyte Absolute 0.06 K/mm3 (0.00-0.031); Immature Granulocyte Percent A 0.6 % (0-0.5); Lymphocytes Absolute Auto 1.95 K/mm3 (0.9-3.2); Lymphocytes Percent Auto 18.8 % (18.3-44.2); Mean Corpuscular HGB Conc 33.2 g/dl (32-36); Mean Corpuscular Hemoglobin 31.8 pg (26-34); Mean Corpuscular Volume 95.9 fl (80-100); Mean Platelet Volume 8.7 fl (7.4-10.4); Monocytes Absolute Auto 0.9 K/mm3 (0.1-0.6); Monocytes Percent Auto 8.4 % (2.6-8.5); Neutrophils Absolute Auto 7.4 K/mm3 (1.3-6.7); Neutrophils Percent Auto 71.7 % (45.5-73.1); Platelet Count Result 171 k/mm3 (150-375); White Blood Count 10.4 K/mm3 (4.5-10.0)
[2024-10-29 04:34] LABS: Alanine Aminotransferase 24 U/L (6-50); Albumin Level 3.7 g/dL (3.5-5.1); Alkaline Phosphatase 57 U/L (38-126); Anion Gap 3 mmol/L (4-12); Aspartate Amino Transferase 29 U/L (17-59); Bilirubin,Total 0.6 mg/dL (0.2-1.3); Blood Urea Nitrogen 16 mg/dL (9-20); Calcium 8.8 mg/dL (8.4-10.2); Carbon Dioxide 30 mmol/L (22-30); Chloride 105 mmol/L (98-107); Estimated CRCL calculation 99 ml/min; Estimated Glomerular Filt Rate > 60; Glucose 104 mg/dL (65-110); Potassium 3.9 mmol/L (3.4-5.0); Sodium 138 mmol/L (137-145)
[2024-10-29 05:08] LABS: Alveolar/Arterial O2 Gradient 57.5 mmHg; Base Excess ABG 2.1 mEq/l (+/-2.0); Fractional Inspired Oxygen 30 %; Oxygen Content ABG 18.3 %vol (16.0-22.0); Oxygen Saturation ABG 97.9 % (95.0-100.0); Oxyhemoglobin 97.2 % THb (90.0-100.0); PCO2 ABG 42.9 mmHg (35.0-45.0); PO2 FiO2 Ratio Arterial Blood 3.53 %; Total Hemoglobin 13.3 g/dL (12.0-18.0); pH ABG 7.416 (7.350-7.450)
[2024-10-29 05:12] LABS: Device OTHER DEVICE; Modified Allen's Test Pass; Site Drawn RIGHT RADIAL
[2024-10-29 07:11] LABS: Glucose Point of Care 105 mg/dl (65-105)
--- NOTE | 2024-10-29 08:48 | PC.NURSE ---
Pt reports pinprick rash that appeared to dorsal surface of bilat hands after receiving morning medication yesterday. Today, hives noted to inside of forearm. Dr. Clark made aware. Will assess pt at bedside.
[2024-10-29] MEDS: FLUTICASONE/UMECLIDIN/VILANTER 100-62.5-25 MCG ELLIPTA 1 PUFF INHALATION (09:03)
[2024-10-29] MEDS: THIAMINE HCL 200 MG/2 ML VIAL 100 MG IV PUSH (09:50)
[2024-10-29] MEDS: carvediloL 6.25 MG TABLET PO ×2 (09:51→20:43)
[2024-10-29] MEDS: LOSARTAN POTASSIUM 12.5 MG TABLET PO (09:51)
[2024-10-29] MEDS: ARIPiprazole 2 MG TABLET PO (09:51)
[2024-10-29] MEDS: predniSONE 20 MG TABLET 40 MG PO (09:51)
[2024-10-29] MEDS: ASPIRIN 81 MG ENTERIC TABLET PO (09:51)
[2024-10-29] MEDS: ENOXAPARIN 40 MG/0.4 ML SYRINGE SUB-Q (09:51)
[2024-10-29] MEDS: TICAGRELOR 90 MG TABLET PO ×2 (09:52→20:44)
[2024-10-29] MEDS: ALENDRONATE SODIUM 70 MG TABLET PO (09:52)
[2024-10-29] MEDS: diphenhydrAMINE HCl INJ 50 MG/ML VIAL 25 MG IV PUSH (10:46)
[2024-10-29] MEDS: AZITHROMYCIN 500 MG/NS 250 ML 500 MG/250 ML BAG 250 MG IVPB (13:21)
--- NOTE | 2024-10-29 14:18 | P.CONPL_ITS ---
Assessment and Plan Assessment and plan (1) COPD with chronic bronchitis and emphysema: Code(s): J44.89 - Other specified chronic obstructive pulmonary disease; J43.9 - Emphysema, unspecified Status: Chronic Assessment and Plan: Gold grade 3 COPD patient with a 64 pack year tobacco use, quit 5 years ago, daily marijuana use currently vaporizing THC at 5 inhalations a day, alpha 1 anti trypsin genotype MM, PFT @ [facility] 06/09/21 severe airways obstruction. No evidence of airways restriction. DLCO severely reduced. Significant improvement in in flow rates post bronchodilator. FEV1 39% pred, FEV1/FVC 44%. From pulmonology office visit note: May 2020 FEV1: FVC ratio 38% and FEV1 35% predicted. First CT scan in our system from 06/22 demonstrates moderate to severe centrilobular emphysema with mild bronchiectasis. Currently on no home oxygen. On a good day he can walk 200 yd. maintained on trelegy 100 and prescribed ohtuvayre but this has not been delivered to him yet. echocardiogram 10/28/2024 with LVEF 60 65%, abnormal diastolic function, moderate mitral regurg mildly enlarged left atrium, normal right atrium normal right ventricular size and function, PASP 33. 10/27/2024: Patient admitted to the hospital after he lost consciousness. He had no evidence of a COPD exacerbation prior to this event. He had wheezing in the emergency room with an acute respiratory acidosis 7.12/63 with a serum bicarbonate of 21 and a lactic acid of 5.5. He has been treated for COPD exacerbations with steroids, bronchodilators and being treated for pneumonia with ceftriaxone and azithromycin. Patient had hemoptysis that has resolved. 10/29/2024: currently the patient tells me he is at his baseline regarding his breathing with no rest shortness of breath. His dyspnea on exertion is increased compared to his usual. His cough is normal, he has no Increase in his phlegm production. He did have blood streak in his sputum this morning but none since. he is afebrile. Room air saturations 94%. His white blood cell count is 10.4, his creatinine is 0.71. Patient wore the hospital noninvasive ventilator with the AVAPS mode rate of 14, tidal volume 500, EPAP 4, minimal inspiratory pressure 5, maximal inspiratory pressure 25, inspiratory time 1.2, rise of 5 and 30% FiO2. ABG drawn prior to mass removal was 7.42/42/106. Plan: I will obtain CT angiogram of the chest to exclude pulmonary embolism. Patient says he is breathing back to normal no wheezing at this time. I will discontinue his prednisone, status post 3 days of systemic steroids. I will continue the patient on his trelegy 100 and discontinued nebulizers at this time. Will perform overnight oximetry on room air tonight. Will perform home O2 assessment prior to discharge. Discussed with Dr. Clark, will follow with you. (2) Hypercapnia: Code(s): R06.89 - Other abnormalities of breathing Status: Acute Assessment and Plan: Patient presented with an acute respiratory acidosis 7. with a serum bicarbonate of 21 and a lactic acid of 5.5. he was initially treated with BiPAP. 10/29/24: Patient wore the hospital noninvasive ventilator with the AVAPS mode rate of 14, tidal volume 500, EPAP 4, minimal inspiratory pressure 5, maximal inspiratory pressure 25, inspiratory time 1.2, rise of 5 and 30% FiO2. ABG drawn prior to mass removal was 7.42/42/106. Plan: I will reassess him for chronic hypercarbic respiratory failure in leave him off of noninvasive ventilation for 24 hours and check a room air arterial blood gas tomorrow at 8:00 a.m.. (3) Pneumonia: Code(s): J18.9 - Pneumonia, unspecified organism Status: Acute Assessment and Plan: Patient had no clinical infectious complaints prior to zone responsive episode. He did become unresponsive and may have aspirated. His initial white blood cell count was 14.2. He has been afebrile. His chest x-ray showed bibasilar interstitial alveolar infiltrates. COVID, influenza, RSV RT PCR study negative. 1 blood culture negative to date. 10/29/24: Patient remains afebrile, white blood cell count 10.4, no infectious complaints. Plan: I will check a CTA scan of the chest to reassess his infiltrates. Patient is on ceftriaxone and azithromycin day 3 both and I will continue. I will check a procalcitonin in the morning. Urine Legionella, urine pneumococcal, serum mycoplasma IgM are pending and I will order an extended respiratory pathogen panel. History of Present Illness History of Present Illness Consult date: 10/29/24 Chief complaint: Respiratory distress, hypercapnia, pneumonia Narrative: 64-year-old with a history history of a NSTEMI, coronary artery disease, ischemic cardiomyopathy with an EF 30-35% in June of 2023 and improved 65% in August of 2023, hypertension, alcohol use, hyperlipidemia, and Gold grade 3 COPD Patient is followed in the Pulmonary [facility] in last seen on 09/29/2024. This is a copy of that office note. 3 month follow-up regarding COPD, dx 2018 when he quit smoking (60 pack years). PCP Dr[address] Balbir Zamora. Hx: CAD, ICM, hypertension, dyslipidemia, COPD, alcohol abuse, former smoking. Sees Dr. Freedman. Last visit, he started Daliresp. Today, he reports continued symptoms of TYLER along with wheezing. Not as much coughing but still has chest congestion clear w/o hemoptysis. He is maintained on Trelegy 100, Daliresp 500mcg daily, and albuterol PRN. Rarely uses rescue inhaler. He feels Trelegy works for him. He admits to not being very active. Consumes quart of wine nightly. Reports being compliant with dual antiplatelets. Has been on Brilinta for a little over 1 year. He does report feeling short of breath with tachycardia since starting Brilinta. He reports he may be coming off of it when he sees Dr. Freedman in follow-up. plan:Did not like Breztri. Hasn't noticed any significant difference with taking Daliresp. Continue Trelegy 100 and albuterol PRN. *Maranda FISHMAN to replace Daliresp. Consent signed. Will update PFT *PFT, 6mw Alternatively, if no benefit, consider all neb meds to replace Trelegy. Pulmonary rehab was recommended. He will think about it. I am curious if maybe his Brilinta may be contributing to his dyspnea as well. He plans to see Dr. Freedman in follow-up soon. Stay UTD on vaccinations, encourage daily exercise as tolerated. F/u 3 months or PRN. On a good day patient says he can walk 200 yd slowly. Patient is not on home oxygen and says that his rest saturations are usually 92%. With activities saturations go 88-90%. He has a chronic cough and production of white phlegm. Patient smoked a pack and half of cigarettes from age [age] for a total of 64 pack years. Patient smokes daily marijuana until 5 years ago. Since then he has been vaporizing THC products and takes 5 inhalations a day. He is not exposed to any secondhand smoke. Patient smoked crack cocaine from age [age] but none since. 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 He retired 20 years ago. On the morning of the patient was in his usual state of health. He slept normally that night, he woke up and took a shower and felt normal other than having low energy. He has baseline dyspnea on exertion while he took a shower. He denied fever, chills, rigors, change in his cough, change in his phlegm production. He did not do any marijuana vaping that morning and his last use was the night before. After his shower he said it is computer for an hour and was feeling normally. At approximately 1:00 p.m. he walked down hill to his car and he felt hot and short of breath more so than usual. He was in his car and he did not improve with rest and was going to drive himself to the hospital but symptoms worsened and he got out of his car and he sat down and called 911. He was panting but not wheezing. He had no chest pain. The patient then Lost consciousness and slumped over from a seated position and woke up in the emergency department. 10/27/2024: Patient brought to the emergency room after being found unresponsive in his driveway and respiratory distress. Room air pulse oximetry was 50% by EMS. Placed on a non-rebreather and saturations increased to 92. In the ED he was somnolent but responding to voice he did not tolerate BiPAP. Blood pressure 130/72, heart rate 90, on BiPAP 50% pulse oximetry 98%. He had minimal air movement with wheezing in the upper [place] and congestion in the lower [place]. His white blood cell count was 14.2 with eosinophils 2.2% equal 312/uL. creatinine 0.99, serum bicarbonate 21 lactic acid 5.5, BNP 781, troponin negative, alcohol less than 10. Influenza, RSV, COVID RT PCR negative. ABG on BiPAP was 7.12/63/146. Repeat ABG after on BiPAP for 1 hour was 7.30/40/177 on BiPAP rate of 14. 70% FiO2. Chest x-ray showed congestion versus pneumonia. Patient started on ceftriaxone and azithromycin. Patient tells me he had hemoptysis with blood clots. 10/28/2024: Notes state the patient was stable on BiPAP overnight and he felt better. Patient tells me he had blood streak sputum. Mucinex was added. Continue bronchodilators. Switch to oral steroids. Plan was to stop his BiPAP and recheck an ABG in the a.m.. 10/29/2024: currently the patient tells me he is at his baseline regarding his breathing with no rest shortness of breath. His dyspnea on exertion is increased compared to his usual. His cough is normal, he has no Increase in his phlegm production. He did have blood streak in his sputum this morning but none since. His white blood cell count is 10.4, his creatinine is 0.71. Patient wore the hospital noninvasive ventilator with the AVAPS mode rate of 14, tidal volume 500, EPAP 4, minimal inspiratory pressure 5, maximal inspiratory pressure 25, inspiratory time 1.2, rise of 5 and 30% FiO2. ABG drawn prior to mass removal was 7.42/42/106. DATA: 10/28/24: Echo Summary 1. Complete two-dimensional, color flow and Doppler transthoracic echocardiogram is performed. 2. Technically suboptimal study due to poor sonographic images. 3. Left ventricular chamber dimension is normal. 4. Left ventricular systolic function is normal, estimated at 60-65. 5. The left ventricular diastolic function is abnormal. 6. E/e' 16 is elevated. 7. Left atrial chamber dimension is mildly enlarged. 8. The aortic valve is not well visualized. Cannot determine number of aortic valve leaflets. 9. There is moderate mitral valve regurgitation. 10. No pulmonary hypertension, estimated pulmonary arterial systolic pressure is 33 mmHg. Right Ventricle Right ventricular chamber dimension is normal. Right ventricular systolic function is normal. Right Atria Right atrial chamber dimension is normal. Chest CT 06/19/24 - Stable 4 mm left upper lobe nodule, likely benign. Consider follow-up low dose CT chest in 12 months. Emphysema. Echo 04/06/24 - EF 60-65%, mild to moderate mitral valve stenosis, no pulm HTN With PASP 19. Chest CT 06/19/24 - Stable 4 mm left upper lobe nodule, likely benign. Consider follow-up low dose CT chest in 12 months. Emphysema. Echo 06/18/23 - EF 30-35%. 6mw 11/22/22 - did not require O2 Chest CTA 06/17/23 - There are small pleural effusions. There is moderate emphysema. There are new airspace opacities of the lower lobes and right middle lobe. There is a decreasing airspace opacity of the right upper lobe. No PE. Alpha 1 PIMM normal PFT @ [facility] 06/09/21 severe airways obstruction. No evidence of airways restriction. DLCO severely reduced. Significant improvement in in flow rates post bronchodilator. FEV1 39% pred, FEV1/FVC 44%. From pulmonology office visit note: May 2020 FEV1: FVC ratio 38% and FEV1 35% predicted. Review of Systems 2 Constitutional: Constitutional: Reports no additional constitutional complaints Eyes: Eyes: Reports no additional eye complaints ENT: Reports system reviewed and no additional complaints, except as documented Cardiovascular: Cardiovascular: Reports no additional cardiovascular complaints Respiratory: Respiratory: Reports no additional respiratory complaints Gastrointestinal: Gastrointestinal: Reports no additional gastrointestinal complaints Musculoskeletal: Musculoskeletal: Reports no additional musculoskeletal complaints Neurologic: Reports system reviewed and no additional complaints, except as documented Psychiatric: Psychiatric: Reports no additional psychiatric complaints Endocrine: Endocrine: Reports no additional endocrine complaints Hematologic/Lymphatic: Hematologic/Lymphatic: Reports no additional hematologic/lymphatic complaints Allergic/Immunologic: Allergic/Immunologic: Reports no additional allergic/immunologic complaints [facility] Past Medical History Medical History Bilateral cataracts Non-STEMI (non-ST elevated myocardial infarction) Preop cardiovascular exam Shock CAD (coronary artery disease) Right lower lobe pneumonia Pneumonia Emphysema lung Hypertension Chronic hyponatremia Coronary artery disease Thoracic compression fracture Gastroesophageal reflux disease Ischemic cardiomyopathy EF is low as 30 to 35% in June 2023; improved to 60 to 65% on echo obtained in August 2023. Osteoporosis COPD with chronic bronchitis and emphysema Heavy alcohol use Anxiety and depression Hypercholesteremia Former smoker Surgical History Surgical History Hx of cataract surgery History of coronary artery stent placement (06/2023) x3 to the LAD. History of tonsillectomy Family History Family History Father Aneurysm Grandparent Black lung Social History Social History Social History: Surrogate medical decision maker: Valeriano Laguna, sibling. Code status: Full code. Smoking packs per day: 1.5 Smoking cigarettes per day: 30.0 Years smoked: 42 Smoking pack-years: 63.00 Smoking status: Former smoker Tobacco type: cigarettes Second hand tobacco smoke exposure: No Alcohol intake: current Drinks per week: 36 Alcohol use details: wine Substance use: never Substance use type: does not use Last use: Sunday Do You Feel Safe in your Home?: Yes Lack of Transportation: No Lack of Food: Never True Current Housing: I Have Housing Concerned About Future Housing: No Difficulty Paying Gas/Electric Bills: No Difficulty Paying for Meds: No Currently Unemployed: No Education: High School Diploma/GED Difficulty w/ Childcare or Family Care: No Living arrangements: alone Additional living arrangements comments: Lives alone in [place]. 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 Spiritual care concerns: No Meds Home Medications and Allergies Home Medications ?Medication ?Instructions ?Recorded ?Confirmed ?Type trazodone 100 mg tablet 100 mg PO HS 11/10/22 10/27/24 History aspirin 81 mg tablet,delayed 81 mg PO DAILY@0800 #90 tabs 06/19/23 10/27/24 Rx release calcium 100 mg capsule 100 mg PO DAILY 06/19/23 10/27/24 History losartan 25 mg tablet 12.5 mg (1/2 x 25 mg) PO DAILY #90 11/21/23 10/27/24 Rx tabs Trelegy Ellipta 100 mcg-62.5 1 inh inhalation QAM #60 ea 03/06/24 10/27/24 Rx mcg-25 mcg powder for inhalation (frglrpfrhgl-oovaykfkf-droxxyyc) multivitamin (Daily Multi-Vitamin 1 tablet PO DAILY 03/13/24 10/27/24 History tablet) carvedilol 6.25 mg tablet 6.25 mg PO Q12H #60 tabs 05/23/24 10/27/24 Rx atorvastatin 80 mg tablet 80 mg PO HS #30 tabs 06/18/24 10/27/24 Rx albuterol sulfate 1.25 mg/3 mL 1.25 mg (3 mL) inhalation Q6H PRN 07/31/24 10/27/24 Rx solution for nebulization shortness of breath or wheezing #360 mL alendronate 70 mg tablet 70 mg PO WEEKLY #12 tabs 09/08/24 10/27/24 Rx aripiprazole 2 mg tablet 2 mg PO DAILY 09/08/24 10/27/24 History omeprazole 20 mg capsule,delayed 20 mg PO DAILY #90 caps 09/08/24 10/27/24 Rx release vitamin B complex-folic acid 0.4 1 tablet PO DAILY 09/08/24 10/27/24 History mg tablet (B Complex 1 (with folic acid)) ticagrelor 90 mg tablet (Brilinta) 90 mg PO Q12HR #180 tabs 09/24/24 10/27/24 Rx ensifentrine 3 mg/2.5 mL 2.5 ml inhalation QAM AND QPM #150 10/29/24 Rx suspension for nebulization mL (Ohtuvayre) Allergies Allergy/AdvReac Type Severity Reaction Status Date / Time No Known Allergies Allergy Verified 10/27/24 13:54 Vital Signs Vital Signs - 24 hr 10/28/24 15:19 10/28/24 15:41 10/28/24 16:00 Temperature 36.6 C Pulse Rate 75 88 Pulse Rate [Monitor] Respiratory Rate 18 20 Blood Pressure 112/72 Pulse Oximetry 96 92 Oxygen Delivery Room Air Fraction of Inspired Oxygen 10/28/24 16:00 10/28/24 16:00 10/28/24 18:00 Temperature Pulse Rate 84 86 Pulse Rate [Monitor] 92 Respiratory Rate Blood Pressure Pulse Oximetry Oxygen Delivery Fraction of Inspired Oxygen 10/28/24 19:57 10/28/24 19:58 10/28/24 20:00 Temperature 36.5 C Pulse Rate 78 72 Pulse Rate [Monitor] Respiratory Rate 20 18 Blood Pressure 117/63 Pulse Oximetry 94 100 Oxygen Delivery Room Air Fraction of Inspired Oxygen 10/28/24 20:00 10/28/24 20:00 10/28/24 20:00 Temperature Pulse Rate 77 77 Pulse Rate [Monitor] 78 Respiratory Rate 18 Blood Pressure 117/63 Pulse Oximetry 100 Oxygen Delivery Room Air Fraction of Inspired Oxygen 50 10/28/24 20:07 10/28/24 21:05 10/28/24 22:00 Temperature Pulse Rate 80 74 68 Pulse Rate [Monitor] Respiratory Rate 20 Blood Pressure Pulse Oximetry Oxygen Delivery Fraction of Inspired Oxygen 10/28/24 23:54 10/28/24 23:54 10/28/24 23:54 Temperature Pulse Rate 72 72 Pulse Rate [Monitor] 68 Respiratory Rate 18 Blood Pressure 117/63 Pulse Oximetry 100 Oxygen Delivery Room Air Fraction of Inspired Oxygen 50 10/29/24 00:00 10/29/24 02:00 10/29/24 02:25 Temperature 36.5 C Pulse Rate 75 76 70 Pulse Rate [Monitor] Respiratory Rate 17 15 Blood Pressure 129/75 Pulse Oximetry 93 93 Oxygen Delivery BiPAP Fraction of Inspired Oxygen 10/29/24 02:26 10/29/24 03:56 10/29/24 04:00 Temperature 36.5 C Pulse Rate 70 68 Pulse Rate [Monitor] 60 Respiratory Rate 15 18 Blood Pressure 109/57 L 109/57 L Pulse Oximetry 92 Oxygen Delivery Fraction of Inspired Oxygen 10/29/24 04:00 10/29/24 04:00 10/29/24 05:15 Temperature Pulse Rate 60 60 69 Pulse Rate [Monitor] Respiratory Rate 18 20 Blood Pressure Pulse Oximetry 92 96 Oxygen Delivery Room Air BiPAP Fraction of Inspired Oxygen 50 10/29/24 05:39 10/29/24 05:59 10/29/24 07:31 Temperature 36.4 C Pulse Rate 72 71 74 Pulse Rate [Monitor] Respiratory Rate 15 20 Blood Pressure 123/80 Pulse Oximetry 94 Oxygen Delivery Fraction of Inspired Oxygen 10/29/24 08:00 10/29/24 08:00 10/29/24 09:04 Temperature Pulse Rate 74 75 Pulse Rate [Monitor] Respiratory Rate 18 Blood Pressure Pulse Oximetry 94 95 Oxygen Delivery Room Air Room Air Fraction of Inspired Oxygen 10/29/24 09:05 10/29/24 09:13 10/29/24 09:51 Temperature Pulse Rate 75 66 68 Pulse Rate [Monitor] Respiratory Rate 18 18 Blood Pressure Pulse Oximetry Oxygen Delivery Fraction of Inspired Oxygen 10/29/24 10:00 Temperature Pulse Rate 73 Pulse Rate [Monitor] Respiratory Rate Blood Pressure Pulse Oximetry Oxygen Delivery Fraction of Inspired Oxygen Exam 2 Const: General: cooperative, healthy appearing and comfortable O rientation/consciousness: oriented to person, oriented to place and oriented to time HENMT: Head: normal to inspection Ears: hearing grossly normal bilaterally Eyes: General: appearance normal, both eyes and all related structures Neck: Neck: normal visual inspection Chest: Chest palpation & inspection: normal inspection of the chest Resp: Effort & Inspection: normal respiratory effort and able to speak in complete sentences Auscultation: crackles, no rales, no rhonchi, no wheezes and lung sounds not diminished Cardio: Jugular venous distension: no JVD GI: Inspection: normal to inspection GI Palp: No abdominal tenderness Skin: General skin exam: normal color Neuro: General: oriented to person, oriented to place and oriented to time Extrem: General: normal to inspection and no edema Psych: Appearance: grossly normal Results Laboratory Findings 10/29/24 03:44 10/29/24 03:44 ABG, PT/INR, D-dimer: ABG ABG pH 7.416 (7.350-7.450) 10/29/24 04:57 ABG pCO2 42.9 mmHg (35.0-45.0) 10/29/24 04:57 ABG pO2 106.0 mmHg (80.0-100.0) H 10/29/24 04:57 ABG O2 Saturation 97.9 % (95.0-100.0) 10/29/24 04:57 PT/INR, D-dimer PT 12.9 Seconds (11.1-14.7) 10/27/24 13:51 INR 0.9 10/27/24 13:51 Abnormal lab findings: Abnormal Labs 10/27/24 10/27/24 10/27/24 13:49 13:51 13:53 WBC 14.2 H RBC Hgb 18.7 H D Hct 54.1 H Immature Gran % (Auto) 0.6 H Lymph # (Auto) 5.19 H [place] # (Auto) 1.0 H Abs Immat Gran (auto) 0.09 H Absolute Neuts (auto) 7.6 H ABG pH 7.122 L* ABG pCO2 63.3 H* ABG pO2 146.4 H ABG HCO3 20.2 L ABG O2 Content 28.0 H Total Hemoglobin 20.3 H Sodium 136 L Potassium 5.1 H Carbon Dioxide 21 L Anion Gap 14 H Creatinine Glucose 288 H POC Capillary Glucose Lactic Acid 5.5 H* AST 63 H Troponin I NT-Pro-B Natriuret Pep 781 H Total Protein Urine Protein 10/27/24 10/27/24 10/27/24 15:08 15:31 17:59 WBC RBC Hgb Hct Immature Gran % (Auto) Lymph # (Auto) [place] # (Auto) Abs Immat Gran (auto) Absolute Neuts (auto) ABG pH 7.304 L ABG pCO2 ABG pO2 177.1 H ABG HCO3 19.6 L ABG O2 Content 25.3 H Total Hemoglobin 18.1 H Sodium Potassium Carbon Dioxide Anion Gap Creatinine Glucose POC Capillary Glucose Lactic Acid AST Troponin I 0.042 H* D NT-Pro-B Natriuret Pep Total Protein Urine Protein 2+ H 10/28/24 10/28/24 10/28/24 05:12 09:47 11:31 WBC RBC 4.33 L Hgb 13.8 L D Hct 39.8 L Immature Gran % (Auto) Lymph # (Auto) [place] # (Auto) Abs Immat Gran (auto) Absolute Neuts (auto) ABG pH ABG pCO2 34.9 L ABG pO2 ABG HCO3 ABG O2 Content Total Hemoglobin Sodium 134 L Potassium Carbon Dioxide Anion Gap Creatinine 0.60 L Glucose 280 H POC Capillary Glucose 213 H Lactic Acid AST Troponin I 0.088 H* NT-Pro-B Natriuret Pep Total Protein Urine Protein 10/28/24 10/28/24 10/29/24 15:35 20:04 03:44 WBC 10.4 H RBC 3.90 L Hgb 12.4 L Hct 37.4 L Immature Gran % (Auto) 0.6 H Lymph # (Auto) [place] # (Auto) 0.9 H Abs Immat Gran (auto) 0.06 H Absolute Neuts (auto) 7.4 H ABG pH ABG pCO2 ABG pO2 ABG HCO3 ABG O2 Content Total Hemoglobin Sodium Potassium Carbon Dioxide Anion Gap 3 L Creatinine Glucose POC Capillary Glucose 130 H 114 H Lactic Acid AST Troponin I NT-Pro-B Natriuret Pep Total Protein 6.0 L Urine Protein 10/29/24 04:57 WBC RBC Hgb Hct Immature Gran % (Auto) Lymph # (Auto) [place] # (Auto) Abs Immat Gran (auto) Absolute Neuts (auto) ABG pH ABG pCO2 ABG pO2 106.0 H ABG HCO3 27.0 H ABG O2 Content Total Hemoglobin Sodium Potassium Carbon Dioxide Anion Gap Creatinine Glucose POC Capillary Glucose Lactic Acid AST Troponin I NT-Pro-B Natriuret Pep Total Protein Urine Protein Diagnostic Findings Additional studies: ITS Impressions Chest X-Ray 10/27/24 13:50 IMPRESSION: Bilateral basal pneumonia. Follow-up to resolution advised.
--- NOTE | 2024-10-29 14:25 | PCPTNOTE ---
Spoke with current hospitalist, OK it remove therapy orders - pt independent in the room.
[2024-10-29 15:38] LABS: Glucose Point of Care 278 mg/dl (65-105)
--- NOTE | 2024-10-29 16:47 | PC.NURSE ---
This patient, Edgar Laguna, was transferred to [facility] on 10/29/24 at 1607. Personal belongings sent with patient. Report given to REYES Ward. Appropriate documentation sent with patient.
--- NOTE | 2024-10-29 17:26 | PM.IMPN ---
Progress Note: A&P Assessment and Plan (1) Pneumonia: Code(s): J18.9 - Pneumonia, unspecified organism Status: Acute (2) Acute respiratory distress: Code(s): R06.03 - Acute respiratory distress Status: Acute (3) COPD with chronic bronchitis and emphysema: Code(s): J44.89 - Other specified chronic obstructive pulmonary disease; J43.9 - Emphysema, unspecified Status: Chronic (4) Alcohol dependence: Code(s): F10.20 - Alcohol dependence, uncomplicated Status: Acute (5) Hypercholesteremia: Code(s): E78.00 - Pure hypercholesterolemia, unspecified Status: Acute (6) Hypertension: Code(s): I10 - Essential (primary) hypertension Status: Chronic Plan 64-year-old male past medical history of NSTEMI, CAD, COPD, hypertension, alcohol use and hyperlipidemia presents to the hospital with altered mental status and respiratory distress. Patient states he does not remember how he got to the hospital. Patient reports shortness of breath and palpitations prior to presentation. In the ED patient was placed on BiPAP due to respiratory failure with respiratory acidosis and hypercarbia. Patient's repeat blood gas did show much improvement the patient was not intubated. His lab work shows leukocytosis at 14.2, hemoconcentrated 18.7, sodium of 136, potassium of 5.1, lactic acid of 5.5 resolved to 1.3 after fluid bolus, 3 hour troponin was 0.042, BNP was 781, UA was negative for infection. Influenza A/B, RSV, COVID negative. Chest x-ray showed bilateral pneumonia. fu troponin up to 0.088. bipap remvoed this am and switched to nasal cannula. no active wheezing. will stop iv steroid. continue antibiotics with iv ceftraixone and azithromycin. add mucinex. continue bronchodilators. copd possible exacerbation. switch to oral steroid. hypercapnic resp failure: abg imrpoved with bipap. will stop bipap. recheck abg in am ams likely due to hypercapnic resp failure. cad s/p stents in the past copd will consult Dr. Mcwilliams and further recommendation to follow. hx of nstemi htn alcohol use hyperlipidemia DVT proph: lovenox code status; full code hx of Thoracic compression fracture Gastroesophageal reflux disease Ischemic cardiomyopathy: EF is low as 30 to 35% in June 2023; improved to 60 to 65% on echo obtained in August 2023. osteoporosis Subjective Date/time seen: 10/29/24 17:26 Interval history: State on BiPAP overnight. Patient with hypercarbic respiratory failure, ABG reviewed which showed improvement in pCO2, however patient feels short of breath with short distance, patient with history of COPD had been seen by analog ic design engineer, will consult further recommendation. Review of Systems Review of Systems: 12 systems were reviewed and are negative except for as per HPI. Exam Narrative: Patient is comfortable, NAD HEENT: eyes are clear and none icteric LUNGS: Bilateral fair entry with rhonchi and minimal wheezing HEART: RR S1S2 ABD: BS+, Soft and nontender Lower extremities: no edema SKIN: nonjaundiced Neuro: grossly intact. Objective Data Vital Signs Vital Signs: Vital Signs - 24 hr 10/28/24 18:00 10/28/24 19:57 10/28/24 19:58 Temperature Pulse Rate 86 78 Pulse Rate [Monitor] Respiratory Rate 20 Blood Pressure Pulse Oximetry 94 Oxygen Delivery Room Air Fraction of Inspired Oxygen 10/28/24 20:00 10/28/24 20:00 10/28/24 20:00 Temperature 36.5 C Pulse Rate 72 77 Pulse Rate [Monitor] 78 Respiratory Rate 18 18 Blood Pressure 117/63 117/63 Pulse Oximetry 100 100 Oxygen Delivery Room Air Fraction of Inspired Oxygen 50 10/28/24 20:00 10/28/24 20:07 10/28/24 21:05 Temperature Pulse Rate 77 80 74 Pulse Rate [Monitor] Respiratory Rate 20 Blood Pressure Pulse Oximetry Oxygen Delivery Fraction of Inspired Oxygen 10/28/24 22:00 10/28/24 23:54 10/28/24 23:54 Temperature Pulse Rate 68 72 Pulse Rate [Monitor] 68 Respiratory Rate 18 Blood Pressure 117/63 Pulse Oximetry 100 Oxygen Delivery Room Air Fraction of Inspired Oxygen 50 10/28/24 23:54 10/29/24 00:00 10/29/24 02:00 Temperature 36.5 C Pulse Rate 72 75 76 Pulse Rate [Monitor] Respiratory Rate 17 Blood Pressure 129/75 Pulse Oximetry 93 Oxygen Delivery Fraction of Inspired Oxygen 10/29/24 02:25 10/29/24 02:26 10/29/24 03:56 Temperature 36.5 C Pulse Rate 70 70 68 Pulse Rate [Monitor] Respiratory Rate 15 15 18 Blood Pressure 109/57 L Pulse Oximetry 93 92 Oxygen Delivery BiPAP Fraction of Inspired Oxygen 10/29/24 04:00 10/29/24 04:00 10/29/24 04:00 Temperature Pulse Rate 60 60 Pulse Rate [Monitor] 60 Respiratory Rate 18 Blood Pressure 109/57 L Pulse Oximetry 92 Oxygen Delivery Room Air Fraction of Inspired Oxygen 50 10/29/24 05:15 10/29/24 05:39 10/29/24 05:59 Temperature Pulse Rate 69 72 71 Pulse Rate [Monitor] Respiratory Rate 20 15 Blood Pressure Pulse Oximetry 96 Oxygen Delivery BiPAP Fraction of Inspired Oxygen 10/29/24 07:31 10/29/24 08:00 10/29/24 08:00 Temperature 36.4 C Pulse Rate 74 74 Pulse Rate [Monitor] Respiratory Rate 20 Blood Pressure 123/80 Pulse Oximetry 94 94 Oxygen Delivery Room Air Fraction of Inspired Oxygen 10/29/24 09:04 10/29/24 09:05 10/29/24 09:13 Temperature Pulse Rate 75 75 66 Pulse Rate [Monitor] Respiratory Rate 18 18 18 Blood Pressure Pulse Oximetry 95 Oxygen Delivery Room Air Fraction of Inspired Oxygen 10/29/24 09:51 10/29/24 10:00 10/29/24 12:00 Temperature Pulse Rate 68 73 67 Pulse Rate [Monitor] Respiratory Rate Blood Pressure Pulse Oximetry Oxygen Delivery Fraction of Inspired Oxygen 10/29/24 15:23 10/29/24 16:00 10/29/24 16:22 Temperature 36.7 C 36.8 C Pulse Rate 81 79 80 Pulse Rate [Monitor] Respiratory Rate 18 20 Blood Pressure 138/84 144/78 H Pulse Oximetry 94 93 Oxygen Delivery Fraction of Inspired Oxygen Intake/Output Intake/Output: Intake & Output 10/26/24 10/27/24 10/28/24 10/29/24 23:59 23:59 23:59 23:59 Intake Total 2400 1030 480 Output Total 450 2580 775 Balance 1950 -1550 -295 Meds/Results Medications: Active Medications Generic Name Dose Route Start Last Admin Trade Name Freq PRN Reason Stop Dose Admin Alendronate Sodium 70 mg 10/29/24 09:00 10/29/24 09:52 Alendronate Sodium 70 Mg Tablet PO 70 mg WEEKLY ESTEFANÍA Administration Aripiprazole 2 mg 10/28/24 09:00 10/29/24 09:51 Aripiprazole 2 Mg Tablet PO 2 mg DAILY ESTEFANÍA Administration Aspirin 81 mg 10/28/24 08:00 10/29/24 09:51 Aspirin 81 Mg Enteric Tablet PO 81 mg DAILY@0800 ESTEFANÍA Administration Atorvastatin Calcium 80 mg 10/28/24 21:00 10/28/24 21:04 Atorvastatin 40 Mg Tablet PO 80 mg HS ESTEFANÍA Administration Carvedilol 6.25 mg 10/27/24 22:20 10/29/24 09:51 Carvedilol 6.25 Mg Tablet PO 6.25 mg Q12HR ESTEFANÍA Administration Enoxaparin Sodium 40 mg 10/28/24 09:00 10/29/24 09:51 Enoxaparin 40 Mg/0.4 Ml Syringe SUB-Q 40 mg DAILY ESTEFANÍA Administration Fluticasone/Umeclidinium/Vilanterol 1 puff 10/28/24 08:00 10/29/24 09:03 Fluticasone/Umeclidin/Vilanter 100-62.5-25 Mcg Ellipta INHALATION 1 puff DAILYRT ESTEFANÍA Administration Ceftriaxone Sodium 1 gm in 50 mls @ 100 mls/hr 10/28/24 14:00 10/29/24 13:21 Rocephin 1 Gm/Ns 50 Ml IVPB 100 mls/hr Q24H ESTEFANÍA Administration Azithromycin 500 mg in 250 mls @ 250 mls/hr 10/28/24 14:00 10/29/24 13:21 Zithromax IVPB 250 mls/hr Q24H ESTEFANÍA Administration Lorazepam 2 mg 10/27/24 22:09 Lorazepam Inj (*Crx) 2 Mg/Ml Vial IV PUSH Q4H PRN CIWA 8-15 Losartan Potassium 12.5 mg 10/28/24 09:00 10/29/24 09:51 Losartan Potassium 12.5 Mg Tablet PO 12.5 mg DAILY ESTEFANÍA Administration Perflutren Lipid Microsphere 0 ml 10/28/24 09:35 Perflutren Lipid Microspheres 1.5 Ml Vial Diluted To 10 Ml Total Volume IV PUSH 10/31/24 09:36 ONCE PRN adequate visualization Protocol Thiamine HCl 100 mg 10/28/24 09:00 10/29/24 09:50 Thiamine Hcl 200 Mg/2 Ml Vial IV PUSH 100 mg DAILY ESTEFANÍA Administration Ticagrelor 90 mg 10/27/24 22:15 10/29/24 09:52 Ticagrelor 90 Mg Tablet PO 90 mg Q12HR ESTEFANÍA Administration Trazodone HCl 100 mg 10/27/24 23:10 10/28/24 21:04 Trazodone Hcl 50 Mg Tablet PO 100 mg HS ESTEFANÍA Administration Radiology Results: ITS Impressions Chest X-Ray 10/27/24 13:50 IMPRESSION: Bilateral basal pneumonia. Follow-up to resolution advised. Labs Labs: Laboratory Results - last 24 hr 10/27/24 10/28/24 10/29/24 14:04 20:04 03:44 WBC 10.4 H RBC 3.90 L Hgb 12.4 L Hct 37.4 L MCV 95.9 MCH 31.8 MCHC 33.2 RDW 13.0 Plt Count 171 MPV 8.7 Immature Gran % (Auto) 0.6 H Neut % (Auto) 71.7 Lymph % (Auto) 18.8 [place] % (Auto) 8.4 Eos % (Auto) 0.2 Baso % (Auto) 0.3 Lymph # (Auto) 1.95 [place] # (Auto) 0.9 H Eos # (Auto) 0.0 Baso # (Auto) 0.0 Abs Immat Gran (auto) 0.06 H Absolute Neuts (auto) 7.4 H Absolute Nucleated RBC 0.000 Nucleated RBC % 0.0 Puncture Site ABG pH ABG pCO2 ABG pO2 ABG PO2/FiO2 Ratio ABG HCO3 ABG O2 Saturation ABG O2 Content ABG Base Excess A-a Gradient Oxyhemoglobin Total Hemoglobin O2 Delivery Device O2 Liters/Min FiO2 Sodium 138 Potassium 3.9 Chloride 105 Carbon Dioxide 30 Anion Gap 3 L BUN 16 Creatinine 0.71 Estim Creat Clear Calc 99 Estimated GFR > 60 Glucose 104 POC Capillary Glucose 278 H 114 H Calcium 8.8 Magnesium 2.0 Total Bilirubin 0.6 AST 29 ALT 24 Alkaline Phosphatase 57 Total Protein 6.0 L Albumin 3.7 10/29/24 10/29/24 04:57 07:07 WBC RBC Hgb Hct MCV MCH MCHC RDW Plt Count MPV Immature Gran % (Auto) Neut % (Auto) Lymph % (Auto) [place] % (Auto) Eos % (Auto) Baso % (Auto) Lymph # (Auto) [place] # (Auto) Eos # (Auto) Baso # (Auto) Abs Immat Gran (auto) Absolute Neuts (auto) Absolute Nucleated RBC Nucleated RBC % Puncture Site Right radial ABG pH 7.416 ABG pCO2 42.9 ABG pO2 106.0 H ABG PO2/FiO2 Ratio 3.53 ABG HCO3 27.0 H ABG O2 Saturation 97.9 ABG O2 Content 18.3 ABG Base Excess 2.1 A-a Gradient 57.5 Oxyhemoglobin 97.2 Total Hemoglobin 13.3 O2 Delivery Device Other device O2 Liters/Min FiO2 30 Sodium Potassium Chloride Carbon Dioxide Anion Gap BUN Creatinine Estim Creat Clear Calc Estimated GFR Glucose POC Capillary Glucose 105 Calcium Magnesium Total Bilirubin AST ALT Alkaline Phosphatase Total Protein Albumin Quality VTE Prophylaxis VTE prophylaxis: mechanical ordered and pharmacologic ordered
[2024-10-29] MEDS: traZODone HCL 50 MG TABLET 100 MG PO (20:42)
[2024-10-29] MEDS: ATORVASTATIN 40 MG TABLET 80 MG PO (20:43)
[2024-10-30] VITALS (12 sets, daily range): BP systolic 129–143; BP diastolic 74–86; PULSE 65–79; RESP 16–18; TEMP 36.1–36.5; O2SAT 94–97
[2024-10-30] MEDS: FLUTICASONE/UMECLIDIN/VILANTER 100-62.5-25 MCG ELLIPTA 1 PUFF INHALATION (08:05)
[2024-10-30] MEDS: LOSARTAN POTASSIUM 12.5 MG TABLET PO (08:26)
[2024-10-30] MEDS: ENOXAPARIN 40 MG/0.4 ML SYRINGE SUB-Q (08:26)
[2024-10-30] MEDS: ARIPiprazole 2 MG TABLET PO (08:26)
[2024-10-30] MEDS: THIAMINE HCL 200 MG/2 ML VIAL 100 MG IV PUSH (08:26)
[2024-10-30] MEDS: carvediloL 6.25 MG TABLET PO ×2 (08:26→20:24)
[2024-10-30] MEDS: TICAGRELOR 90 MG TABLET PO ×2 (08:26→20:25)
[2024-10-30] MEDS: ASPIRIN 81 MG ENTERIC TABLET PO (08:26)
[2024-10-30 08:31] LABS: Hematocrit 41.3 % (42.0-52.0); Hemoglobin 13.9 g/dL (14.0-18.0); Mean Corpuscular HGB Conc 33.7 g/dl (32-36); Mean Corpuscular Hemoglobin 31.6 pg (26-34); Mean Corpuscular Volume 93.9 fl (80-100); Mean Platelet Volume 8.5 fl (7.4-10.4); Platelet Count Result 189 k/mm3 (150-375); Red Cell Distribution Width 12.7 % (11.5-14.5)
[2024-10-30 08:50] LABS: Anion Gap 7 mmol/L (4-12); Blood Urea Nitrogen 16 mg/dL (9-20); Calcium 8.9 mg/dL (8.4-10.2); Carbon Dioxide 28 mmol/L (22-30); Chloride 103 mmol/L (98-107); Estimated CRCL calculation 89 ml/min; Estimated Glomerular Filt Rate > 60; Glucose 96 mg/dL (65-110); Magnesium 1.9 mg/dL (1.6-2.3); Potassium 3.7 mmol/L (3.4-5.0); Sodium 138 mmol/L (137-145)
--- NOTE | 2024-10-30 09:50 | PM.PNPUL ---
Progress Note: A&P Assessment and Plan (1) COPD with chronic bronchitis and emphysema: Code(s): J44.89 - Other specified chronic obstructive pulmonary disease; J43.9 - Emphysema, unspecified Status: Chronic Assessment and Plan: Gold grade 3 COPD patient with a 64 pack year tobacco use, quit 5 years ago, daily marijuana use currently vaporizing THC at 5 inhalations a day, alpha 1 anti trypsin genotype MM, PFT @ [facility] 06/09/21 severe airways obstruction. No evidence of airways restriction. DLCO severely reduced. Significant improvement in in flow rates post bronchodilator. FEV1 39% pred, FEV1/FVC 44%. From pulmonology office visit note: May 2020 FEV1: FVC ratio 38% and FEV1 35% predicted. First CT scan in our system from 06/22 demonstrates moderate to severe centrilobular emphysema with mild bronchiectasis. Currently on no home oxygen. On a good day he can walk 200 yd. maintained on trelegy 100 and prescribed ohtuvayre but this has not been delivered to him yet. echocardiogram 10/28/2024 with LVEF 60 65%, abnormal diastolic function, moderate mitral regurg mildly enlarged left atrium, normal right atrium normal right ventricular size and function, PASP 33. 10/27/2024: Patient admitted to the hospital after he lost consciousness. He had no evidence of a COPD exacerbation prior to this event. He had wheezing in the emergency room with an acute respiratory acidosis 7.12/63 with a serum bicarbonate of 21 and a lactic acid of 5.5. He has been treated for COPD exacerbations with steroids, bronchodilators and being treated for pneumonia with ceftriaxone and azithromycin. Patient had hemoptysis that has resolved. 10/29/2024: currently the patient tells me he is at his baseline regarding his breathing with no rest shortness of breath. His dyspnea on exertion is increased compared to his usual. His cough is normal, he has no Increase in his phlegm production. He did have blood streak in his sputum this morning but none since. he is afebrile. Room air saturations 94%. His white blood cell count is 10.4, his creatinine is 0.71. Patient wore the hospital noninvasive ventilator with the AVAPS mode rate of 14, tidal volume 500, EPAP 4, minimal inspiratory pressure 5, maximal inspiratory pressure 25, inspiratory time 1.2, rise of 5 and 30% FiO2. ABG drawn prior to mass removal was 7.. Plan: I will obtain CT angiogram of the chest to exclude pulmonary embolism. Patient says he is breathing back to normal no wheezing at this time. I will discontinue his prednisone, status post 3 days of systemic steroids. I will continue the patient on his trelegy 100 and discontinued nebulizers at this time. Will perform overnight oximetry on room air tonight. Will perform home O2 assessment prior to discharge. Later in the day patient had a CT angiogram of the chest which was negative for PE. He has severe apical greater than basilar centrilobular emphysema and minimal dependent atelectasis versus edema. 10/30/2024: Patient said he slept well. At rest he is breathing normal. His cough is normal. He did have some hemoptysis consisting of blood-streaked mucus last night. He has had none this morning. His rest room air saturations are 96%. Chest x-ray this morning shows no infiltrates or effusions. Patient had an overnight oximetry on room air with recording duration 6 hours and 8 minutes. Average saturation 91%. Low saturation 82%. Time with saturation less than or equal to 88% was 23 minutes. Oxygen desaturation index 7.6. Plan: I do not believe this is a COPD exacerbation. I will continue patient's home dose of trelegy 100. goal saturation 90-94%, currently the patient is on room air. I will order an overnight oximetry on [address] Clark, will follow with you. (2) Hypercapnia: Code(s): R06.89 - Other abnormalities of breathing Status: Acute Assessment and Plan: Patient presented with an acute respiratory acidosis 7. with a serum bicarbonate of 21 and a lactic acid of 5.5. he was initially treated with BiPAP. 10/29/24: Patient wore the hospital noninvasive ventilator with the AVAPS mode rate of 14, tidal volume 500, EPAP 4, minimal inspiratory pressure 5, maximal inspiratory pressure 25, inspiratory time 1.2, rise of 5 and 30% FiO2. ABG drawn prior to mass removal was 7.. Plan: I will reassess him for chronic hypercarbic respiratory failure in leave him off of noninvasive ventilation for 24 hours and check a room air arterial blood gas tomorrow at 8:00 a.m.. 10/30/24: patient has improved and his breathing back to his baseline. patient has been off noninvasive ventilation for 24 hours. Plan: I will check an ABG today to assess for hypercarbic respiratory failure. (3) Pneumonia: Code(s): J18.9 - Pneumonia, unspecified organism Status: Acute Assessment and Plan: Patient had no clinical infectious complaints prior to zone responsive episode. He did become unresponsive and may have aspirated. His initial white blood cell count was 14.2. He has been afebrile. His chest x-ray showed bibasilar interstitial alveolar infiltrates. COVID, influenza, RSV RT PCR study negative. 1 blood culture negative to date. 10/29/24: Patient remains afebrile, white blood cell count 10.4, no infectious complaints. Plan: I will check a CTA scan of the chest to reassess his infiltrates. Patient is on ceftriaxone and azithromycin day 3 both and I will continue. I will check a procalcitonin in the morning. Urine Legionella, urine pneumococcal, serum mycoplasma IgM are pending and I will order an extended respiratory pathogen panel. Later in the day patient had a CT angiogram of the chest which was negative for PE. He has severe apical greater than basilar centrilobular emphysema and minimal dependent atelectasis versus edema. 10/30/24: Patient's infiltrates had resolved within 48 hours which in my opinion was too fast for bacterial infection or aspiration injury. I suspect this was related to fluid. Plan: Continue ceftriaxone and azithromycin for now, Day 4 both. Urine Legionella, urine pneumococcal, serum mycoplasma IgM are pending and I will order an extended respiratory pathogen panel. I discussed the case with his care team coordinator scheduler and the patient has diastolic dysfunction with moderate mitral regurg and presented with hypertensive urgency a blood pressure 197/123 likely resulting in flash pulmonary edema. He felt no stress test was needed and to continue his current cardiac medications. Subjective Date/time seen: 10/30/24 09:50 Interval history: 10/29/24: This is a new pulmonary consult for pneumonia. 64-year-old with a history history of a NSTEMI, coronary artery disease, ischemic cardiomyopathy with an EF 30-35% in June of 2023 and improved 65% in August of 2023, hypertension, alcohol use, hyperlipidemia, and Gold grade 3 COPD Patient is followed in the Pulmonary Clinic in last seen on 09/29/2024. This is a copy of that office note. 3 month follow-up regarding COPD, dx 2018 when he quit smoking (60 pack years). PCP Dr[address] Balbir Zamora. Hx: CAD, ICM, hypertension, dyslipidemia, COPD, alcohol abuse, former smoking. Sees Dr. Freedman. Last visit, he started Daliresp. Today, he reports continued symptoms of TYLER along with wheezing. Not as much coughing but still has chest congestion clear w/o hemoptysis. He is maintained on Trelegy 100, Daliresp 500mcg daily, and albuterol PRN. Rarely uses rescue inhaler. He feels Trelegy works for him. He admits to not being very active. Consumes quart of wine nightly. Reports being compliant with dual antiplatelets. Has been on Brilinta for a little over 1 year. He does report feeling short of breath with tachycardia since starting Brilinta. He reports he may be coming off of it when he sees Dr. Freedman in follow-up. plan:Did not like Breztri. Hasn't noticed any significant difference with taking Daliresp. Continue Trelegy 100 and albuterol PRN. *Maranda FISHMAN to replace Daliresp. Consent signed. Will update PFT *PFT, 6mw Alternatively, if no benefit, consider all neb meds to replace Trelegy. Pulmonary rehab was recommended. He will think about it. I am curious if maybe his Brilinta may be contributing to his dyspnea as well. He plans to see Dr. Freedman in follow-up soon. Stay UTD on vaccinations, encourage daily exercise as tolerated. F/u 3 months or PRN. On a good day patient says he can walk 200 yd slowly. Patient is not on home oxygen and says that his rest saturations are usually 92%. With activities saturations go 88-90%. He has a chronic cough and production of white phlegm. Patient smoked a pack and half of cigarettes from age [age] for a total of 64 pack years. Patient smokes daily marijuana until 5 years ago. Since then he has been vaporizing THC products and takes 5 inhalations a day. He is not exposed to any secondhand smoke. Patient smoked crack cocaine from age [age] but none since. 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 He retired 20 years ago. On the morning of the patient was in his usual state of health. He slept normally that night, he woke up and took a shower and felt normal other than having low energy. He has baseline dyspnea on exertion while he took a shower. He denied fever, chills, rigors, change in his cough, change in his phlegm production. He did not do any marijuana vaping that morning and his last use was the night before. After his shower he said it is computer for an hour and was feeling normally. At approximately 1:00 p.m. he walked down hill to his car and he felt hot and short of breath more so than usual. He was in his car and he did not improve with rest and was going to drive himself to the hospital but symptoms worsened and he got out of his car and he sat down and called 911. He was panting but not wheezing. He had no chest pain. The patient then Lost consciousness and slumped over from a seated position and woke up in the emergency department. 10/27/2024: Patient brought to the emergency room after being found unresponsive in his driveway and respiratory distress. Room air pulse oximetry was 50% by EMS. Placed on a non-rebreather and saturations increased to 92. In the ED he was somnolent but responding to voice he did not tolerate BiPAP. Initial Blood pressure 197/123, heart rate 90, on BiPAP 50% pulse oximetry 98%. He had minimal air movement with wheezing in the upper [place] and congestion in the lower p[place]. His white blood cell count was 14.2 with eosinophils 2.2% equal 312/uL. creatinine 0.99, serum bicarbonate 21 lactic acid 5.5, BNP 781, troponin negative, alcohol less than 10. Influenza, RSV, COVID RT PCR negative. ABG on BiPAP was 7.12/63/146. Repeat ABG after on BiPAP for 1 hour was 7.30/40/177 on BiPAP rate of 14. 70% FiO2. Chest x-ray showed congestion versus pneumonia. Patient started on ceftriaxone and azithromycin. Patient tells me he had hemoptysis with blood clots. 10/28/2024: Notes state the patient was stable on BiPAP overnight and he felt better. Patient tells me he had blood streak sputum. Mucinex was added. Continue bronchodilators. Switch to oral steroids. Plan was to stop his BiPAP and recheck an ABG in the a.m.. 10/29/2024: currently the patient tells me he is at his baseline regarding his breathing with no rest shortness of breath. His dyspnea on exertion is increased compared to his usual. His cough is normal, he has no Increase in his phlegm production. He did have blood streak in his sputum this morning but none since. His white blood cell count is 10.4, his creatinine is 0.71. Patient wore the hospital noninvasive ventilator with the AVAPS mode rate of 14, tidal volume 500, EPAP 4, minimal inspiratory pressure 5, maximal inspiratory pressure 25, inspiratory time 1.2, rise of 5 and 30% FiO2. ABG drawn prior to mass removal was 7.42/42/106. Later in the day patient had a CT angiogram of the chest which was negative for PE. He has severe apical greater than basilar centrilobular emphysema and minimal dependent atelectasis versus edema. 10/30/2024: Patient said he slept well. At rest he is breathing normal. His cough is normal. He did have some hemoptysis consisting of blood-streaked mucus last night. He has had none this morning. His rest room air saturations are 96%. Chest x-ray this morning shows no infiltrates or effusions. Patient had an overnight oximetry on room air with recording duration 6 hours and 8 minutes. Average saturation 91%. Low saturation 82%. Time with saturation less than or equal to 88% was 23 minutes. Oxygen desaturation index 7.6. DATA: 10/28/24: Echo Summary 1. Complete two-dimensional, color flow and Doppler transthoracic echocardiogram is performed. 2. Technically suboptimal study due to poor sonographic images. 3. Left ventricular chamber dimension is normal. 4. Left ventricular systolic function is normal, estimated at 60-65. 5. The left ventricular diastolic function is abnormal. 6. E/e' 16 is elevated. 7. Left atrial chamber dimension is mildly enlarged. 8. The aortic valve is not well visualized. Cannot determine number of aortic valve leaflets. 9. There is moderate mitral valve regurgitation. 10. No pulmonary hypertension, estimated pulmonary arterial systolic pressure is 33 mmHg. Right Ventricle Right ventricular chamber dimension is normal. Right ventricular systolic function is normal. Right Atria Right atrial chamber dimension is normal. Chest CT 06/19/24 - Stable 4 mm left upper lobe nodule, likely benign. Consider follow-up low dose CT chest in 12 months. Emphysema. Echo 04/06/24 - EF 60-65%, mild to moderate mitral valve stenosis, no pulm HTN With PASP 19. Chest CT 06/19/24 - Stable 4 mm left upper lobe nodule, likely benign. Consider follow-up low dose CT chest in 12 months. Emphysema. Echo 06/18/23 - EF 30-35%. 6mw 11/22/22 - did not require O2 Chest CTA 06/17/23 - There are small pleural effusions. There is moderate emphysema. There are new airspace opacities of the lower lobes and right middle lobe. There is a decreasing airspace opacity of the right upper lobe. No PE. Alpha 1 PIMM normal PFT @ [facility] 06/09/21 severe airways obstruction. No evidence of airways restriction. DLCO severely reduced. Significant improvement in in flow rates post bronchodilator. FEV1 39% pred, FEV1/FVC 44%. From pulmonology office visit note: May 2020 FEV1: FVC ratio 38% and FEV1 35% predicted. Review of Systems Constitutional: Constitutional: Reports no additional constitutional complaints Eyes: Eyes: Reports no additional eye complaints ENT: Reports system reviewed and no additional complaints, except as documented Cardiovascular: Cardiovascular: Reports no additional cardiovascular complaints Respiratory: Respiratory: Reports no additional respiratory complaints Gastrointestinal: Gastrointestinal: Reports no additional gastrointestinal complaints Musculoskeletal: Musculoskeletal: Reports no additional musculoskeletal complaints Neurologic: Reports system reviewed and no additional complaints, except as documented Psychiatric: Psychiatric: Reports no additional psychiatric complaints Endocrine: Endocrine: Reports no additional endocrine complaints Hematologic/Lymphatic: Hematologic/Lymphatic: Reports no additional hematologic/lymphatic complaints Allergic/Immunologic: Allergic/Immunologic: Reports no additional allergic/immunologic complaints Exam Const: General: cooperative, healthy appearing and comfortable Orientation/consciousness: oriented to person, oriented to place and oriented to time HENMT: Head: normal to inspection Ears: hearing grossly normal bilaterally Eyes: General: appearance normal, both eyes and all related structures Neck: Neck: normal visual inspection Chest: Chest palpation & inspection: normal inspection of the chest Resp: Effort & Inspection: normal respiratory effort and able to speak in complete sentences Auscultation: no crackles, no rales, no rhonchi, no wheezes and lung sounds not diminished Cardio: Jugular venous distension: no JVD GI: Inspection: normal to inspection Skin: General skin exam: normal color Neuro: General: oriented to person, oriented to place and oriented to time Extrem: General: normal to inspection and no edema Psych: Appearance: grossly normal Objective Data Vital Signs Vital Signs: Vital Signs - 24 hr 10/29/24 09:51 10/29/24 10:00 10/29/24 12:00 Temperature Pulse Rate 68 73 67 Respiratory Rate Blood Pressure Pulse Oximetry Oxygen Delivery Fraction of Inspired Oxygen 10/29/24 14:23 10/29/24 14:45 10/29/24 15:23 Temperature 36.7 C Pulse Rate 76 80 81 Respiratory Rate 20 2 L 18 Blood Pressure 138/84 Pulse Oximetry 94 Oxygen Delivery Fraction of Inspired Oxygen 10/29/24 16:00 10/29/24 16:22 10/29/24 18:11 Temperature 36.8 C Pulse Rate 79 80 Respiratory Rate 20 Blood Pressure 144/78 H Pulse Oximetry 93 Oxygen Delivery Room Air Fraction of Inspired Oxygen 10/29/24 20:00 10/29/24 20:00 10/29/24 20:43 Temperature Pulse Rate 89 79 Respiratory Rate Blood Pressure Pulse Oximetry Oxygen Delivery Room Air Fraction of Inspired Oxygen 10/29/24 23:47 10/30/24 00:00 10/30/24 00:00 Temperature 36.5 C Pulse Rate 74 65 71 Respiratory Rate 18 Blood Pressure 129/74 Pulse Oximetry 93 96 Oxygen Delivery Room Air Fraction of Inspired Oxygen 10/30/24 04:00 10/30/24 06:07 10/30/24 08:00 Temperature 36.3 C L 36.1 C L Pulse Rate 66 79 67 Respiratory Rate 18 18 Blood Pressure 132/80 130/79 Pulse Oximetry 94 95 Oxygen Delivery Fraction of Inspired Oxygen 10/30/24 08:06 10/30/24 08:26 Temperature Pulse Rate 69 Respiratory Rate Blood Pressure Pulse Oximetry 95 Oxygen Delivery Room Air Fraction of Inspired Oxygen Intake/Output Intake/Output: Intake & Output 10/27/24 10/28/24 10/29/24 10/30/24 23:59 23:59 23:59 23:59 Intake Total 2400 1030 1020 240 Output Total 450 2580 775 Balance 1950 -1550 245 240 Meds/Results Medications: Active Medications Generic Name Dose Route Start Last Admin Trade Name Freq PRN Reason Stop Dose Admin Alendronate Sodium 70 mg 10/29/24 09:00 10/29/24 09:52 Alendronate Sodium 70 Mg Tablet PO 70 mg WEEKLY ESTEFANÍA Administration Aripiprazole 2 mg 10/28/24 09:00 10/30/24 08:26 Aripiprazole 2 Mg Tablet PO 2 mg DAILY ESTEFANÍA Administration Aspirin 81 mg 10/28/24 08:00 10/30/24 08:26 Aspirin 81 Mg Enteric Tablet PO 81 mg DAILY@0800 ESTEFANÍA Administration Atorvastatin Calcium 80 mg 10/28/24 21:00 10/29/24 20:43 Atorvastatin 40 Mg Tablet PO 80 mg HS ESTEFANÍA Administration Carvedilol 6.25 mg 10/27/24 22:20 10/30/24 08:26 Carvedilol 6.25 Mg Tablet PO 6.25 mg Q12HR ESTEFANÍA Administration Enoxaparin Sodium 40 mg 10/28/24 09:00 10/30/24 08:26 Enoxaparin 40 Mg/0.4 Ml Syringe SUB-Q 40 mg DAILY ESTEFANÍA Administration Fluticasone/Umeclidinium/Vilanterol 1 puff 10/28/24 08:00 10/30/24 08:05 Fluticasone/Umeclidin/Vilanter 100-62.5-25 Mcg Ellipta INHALATION 1 puff DAILYRT ESTEFANÍA Administration Ceftriaxone Sodium 1 gm in 50 mls @ 100 mls/hr 10/28/24 14:00 10/29/24 13:21 Rocephin 1 Gm/Ns 50 Ml IVPB 100 mls/hr Q24H ESTEFANÍA Administration Azithromycin 500 mg in 250 mls @ 250 mls/hr 10/28/24 14:00 10/29/24 13:21 Zithromax IVPB 250 mls/hr Q24H ESTEFANÍA Administration Lorazepam 2 mg 10/27/24 22:09 Lorazepam Inj (*Crx) 2 Mg/Ml Vial IV PUSH Q4H PRN CIWA 8-15 Losartan Potassium 12.5 mg 10/28/24 09:00 10/30/24 08:26 Losartan Potassium 12.5 Mg Tablet PO 12.5 mg DAILY ESTEFANÍA Administration Perflutren Lipid Microsphere 0 ml 10/28/24 09:35 Perflutren Lipid Microspheres 1.5 Ml Vial Diluted To 10 Ml Total Volume IV PUSH 10/31/24 09:36 ONCE PRN adequate visualization Protocol Thiamine HCl 100 mg 10/28/24 09:00 10/30/24 08:26 Thiamine Hcl 200 Mg/2 Ml Vial IV PUSH 100 mg DAILY ESTEFANÍA Administration Ticagrelor 90 mg 10/27/24 22:15 10/30/24 08:26 Ticagrelor 90 Mg Tablet PO 90 mg Q12HR ESTEFANÍA Administration Trazodone HCl 100 mg 10/27/24 23:10 10/29/24 20:42 Trazodone Hcl 50 Mg Tablet PO 100 mg HS ESTEFANÍA Administration Radiology Results: ITS Impressions Chest CTA 10/29/24 20:37 IMPRESSION: No pulmonary embolus. No thoracic aortic dissection. Panlobular emphysematous disease with bibasilar honeycombing. Chest X-Ray 10/30/24 08:30 Impression: Clear lungs. COPD. Labs Labs: Laboratory Results - last 24 hr 10/27/24 10/30/24 14:04 08:19 WBC 10.0 RBC 4.40 L Hgb 13.9 L Hct 41.3 L MCV 93.9 MCH 31.6 MCHC 33.7 RDW 12.7 Plt Count 189 MPV 8.5 Sodium 138 Potassium 3.7 Chloride 103 Carbon Dioxide 28 Anion Gap 7 BUN 16 Creatinine 0.80 Estim Creat Clear Calc 89 Estimated GFR > 60 Glucose 96 POC Capillary Glucose 278 H Calcium 8.9 Magnesium 1.9
[2024-10-30 10:37] LABS: Fractional Inspired Oxygen 21 %; HCO3 ABG 24.5 mEq/l (22.0-26.0); Oxygen Content ABG 18.9 %vol (16.0-22.0); Oxygen Saturation ABG 94.5 % (95.0-100.0); Oxyhemoglobin 92.9 % THb (90.0-100.0); PCO2 ABG 39.2 mmHg (35.0-45.0); PO2 ABG 70.8 mmHg (80.0-100.0); PO2 FiO2 Ratio Arterial Blood 3.37 %; Total Hemoglobin 14.5 g/dL (12.0-18.0); pH ABG 7.413 (7.350-7.450)
[2024-10-30 10:47] LABS: Modified Allen's Test Pass; Site Drawn RIGHT RADIAL
--- NOTE | 2024-10-30 13:14 | P.PNIM_ITS ---
Progress Note: A&P Assessment and Plan (1) Pneumonia: Code(s): J18.9 - Pneumonia, unspecified organism Status: Acute (2) Acute respiratory distress: Code(s): R06.03 - Acute respiratory distress Status: Acute (3) COPD with chronic bronchitis and emphysema: Code(s): J44.89 - Other specified chronic obstructive pulmonary disease; J43.9 - Emphysema, unspecified Status: Chronic (4) Alcohol dependence: Code(s): F10.20 - Alcohol dependence, uncomplicated Status: Acute (5) Hypercholesteremia: Code(s): E78.00 - Pure hypercholesterolemia, unspecified Status: Acute (6) Hypertension: Code(s): I10 - Essential (primary) hypertension Status: Chronic Plan 64-year-old male past medical history of NSTEMI, CAD, COPD, hypertension, alcohol use and hyperlipidemia presents to the hospital with altered mental stat us and respiratory distress. Patient states he does not remember how he got to the hospital. Patient reports shortness of breath and palpitations prior to presentation. In the ED patient was placed on BiPAP due to respiratory failure with respiratory acidosis and hypercarbia. Patient's repeat blood gas did show much improvement the patient was not intubated. His lab work shows leukocytosis at 14.2, hemoconcentrated 18.7, sodium of 136, potassium of 5.1, lactic acid of 5.5 resolved to 1.3 after fluid bolus, 3 hour troponin was 0.042, BNP was 781, UA was negative for infection. Influenza A/B, RSV, COVID negative. Chest x-ray showed bilateral pneumonia. fu troponin up to 0.088. bipap remvoed this am and switched to nasal cannula. no active wheezing. will stop iv steroid. continue antibiotics with iv ceftraixone and azithromycin. add mucinex. continue bronchodilators. copd possible exacerbation. switch to oral steroid. hypercapnic resp failure: abg imrpoved with bipap. will stop bipap. recheck abg in am ams likely due to hypercapnic resp failure. cad s/p stents in the past Patient with hypercarbic respiratory failure, ABG reviewed which showed improvement in pCO2, however patient feels short of breath with short distance, patient with history of COPD had been seen by gaming surveillance observer, discuss with Dr. Mcwilliams does not suspect patient has exacerbation of COPD,and does not suspect patient has aspiration pneumonia, patient does have desaturation of O2 while sleep and being monitored, Dr. Mcwilliams will do ABP to r/o hypercapnic respiratory failure and will monitor and further recommendation ti follow. hx of nstemi htn alcohol use hyperlipidemia DVT proph: lovenox code status; full code hx of Thoracic compression fracture Gastroesophageal reflux disease Ischemic cardiomyopathy: EF is low as 30 to 35% in June 2023; improved to 60 to 65% on echo obtained in August 2023. osteoporosis Subjective Date/time seen: 10/30/24 13:14 Interval history: Patient with hypercarbic respiratory failure, ABG reviewed which showed improvement in pCO2, however patient feels short of breath with short distance, patient with history of COPD had been seen by gaming surveillance observer, discuss with Dr. Mcwilliams does not suspect patient has exacerbation of COPD,and does not suspect patient has aspiration pneumonia, patient does have desaturation of O2 while sleep and being monitored, Dr. Mcwilliams will do ABP to r/o hypercapnic respiratory failure and will monitor and further recommendation ti follow. Review of Systems Review of Systems: 12 systems were reviewed and are negativ e except for as per HPI. Exam Narrative: Patient is comfortable, NAD HEENT: eyes are clear and none icteric LUNGS: Bilateral fair entry with rhonchi and minimal wheezing HEART: RR S1S2 ABD: BS+, Soft and nontender Lower extremities: no edema SKIN: nonjaundiced Neuro: grossly intact. Objective Data Vital Signs Vital Signs: Vital Signs - 24 hr 10/29/24 14:23 10/29/24 14:45 10/29/24 15:23 Temperature 36.7 C Pulse Rate 76 80 81 Respiratory Rate 20 2 L 18 Blood Pressure 138/84 Pulse Oximetry 94 Oxygen Delivery Fraction of Inspired Oxygen 10/29/24 16:00 10/29/24 16:22 10/29/24 18:11 Temperature 36.8 C Pulse Rate 79 80 Respiratory Rate 20 Blood Pressure 144/78 H Pulse Oximetry 93 Oxygen Delivery Room Air Fraction of Inspired Oxygen 10/29/24 20:00 10/29/24 20:00 10/29/24 20:43 Temperature Pulse Rate 89 79 Respiratory Rate Blood Pressure Pulse Oximetry Oxygen Delivery Room Air Fraction of Inspired Oxygen 10/29/24 23:47 10/30/24 00:00 10/30/24 00:00 Temperature 36.5 C Pulse Rate 74 65 71 Respiratory Rate 18 Blood Pressure 129/74 Pulse Oximetry 93 96 Oxygen Delivery Room Air Fraction of Inspired Oxygen 10/30/24 04:00 10/30/24 06:07 10/30/24 08:00 Temperature 36.3 C L 36.1 C L Pulse Rate 66 79 67 Respiratory Rate 18 18 Blood Pressure 132/80 130/79 Pulse Oximetry 94 95 Oxygen Delivery Fraction of Inspired Oxygen 10/30/24 08:00 10/30/24 08:00 10/30/24 08:06 Temperature Pulse Rate 76 Respiratory Rate Blood Pressure Pulse Oximetry 95 Oxygen Delivery Room Air Room Air Fraction of Inspired Oxygen 10/30/24 08:26 10/30/24 12:00 Temperature Pulse Rate 69 66 Respiratory Rate Blood Pressure Pulse Oximetry Oxygen Delivery Fraction of Inspired Oxygen Intake/Output Intake/Output: Intake & Output 10/27/24 10/28/24 10/29/24 10/30/24 23:59 23:59 23:59 23:59 Intake Total 2400 1030 1070 480 Output Total 450 2580 775 Balance 1950 -1550 295 480 Meds/Results Medications: Active Medications Generic Name Dose Route Start Last Admin Trade Name Freq PRN Reason Stop Dose Admin Alendronate Sodium 70 mg 10/29/24 09:00 10/29/24 09:52 Alendronate Sodium 70 Mg Tablet PO 70 mg WEEKLY ESTEFANÍA Administration Aripiprazole 2 mg 10/28/24 09:00 10/30/24 08:26 Aripiprazole 2 Mg Tablet PO 2 mg DAILY ESTEFANÍA Administration Aspirin 81 mg 10/28/24 08:00 10/30/24 08:26 Aspirin 81 Mg Enteric Tablet PO 81 mg DAILY@0800 ESTEFANÍA Administration Atorvastatin Calcium 80 mg 10/28/24 21:00 10/29/24 20:43 Atorvastatin 40 Mg Tablet PO 80 mg HS ESTEFANÍA Administration Carvedilol 6.25 mg 10/27/24 22:20 10/30/24 08:26 Carvedilol 6.25 Mg Tablet PO 6.25 mg Q12HR ESTEFANÍA Administration Enoxaparin Sodium 40 mg 10/28/24 09:00 10/30/24 08:26 Enoxaparin 40 Mg/0.4 Ml Syringe SUB-Q 40 mg DAILY ESTEFANÍA Administration Fluticasone/Umeclidinium/Vilanterol 1 puff 10/28/24 08:00 10/30/24 08:05 Fluticasone/Umeclidin/Vilanter 100-62.5-25 Mcg Ellipta INHALATION 1 puff DAILYRT ESTEFANÍA Administration Ceftriaxone Sodium 1 gm in 50 mls @ 100 mls/hr 10/28/24 14:00 10/30/24 13:12 Rocephin 1 Gm/Ns 50 Ml IVPB 100 mls/hr Q24H ESTEFANÍA Administration Azithromycin 500 mg in 250 mls @ 250 mls/hr 10/28/24 14:00 10/29/24 13:21 Zithromax IVPB 250 mls/hr Q24H ESTEFANÍA Administration Lorazepam 2 mg 10/27/24 22:09 Lorazepam Inj (*Crx) 2 Mg/Ml Vial IV PUSH Q4H PRN CIWA 8-15 Losartan Potassium 12.5 mg 10/28/24 09:00 10/30/24 08:26 Losartan Potassium 12.5 Mg Tablet PO 12.5 mg DAILY ESTEFANÍA Administration Perflutren Lipid Microsphere 0 ml 10/28/24 09:35 Perflutren Lipid Microspheres 1.5 Ml Vial Diluted To 10 Ml Total Volume IV PUSH 10/31/24 09:36 ONCE PRN adequate visualization Protocol Thiamine HCl 100 mg 10/28/24 09:00 10/30/24 08:26 Thiamine Hcl 200 Mg/2 Ml Vial IV PUSH 100 mg DAILY ESTEFANÍA Administration Ticagrelor 90 mg 10/27/24 22:15 10/30/24 08:26 Ticagrelor 90 Mg Tablet PO 90 mg Q12HR ESTEFANÍA Administration Trazodone HCl 100 mg 10/27/24 23:10 10/29/24 20:42 Trazodone Hcl 50 Mg Tablet PO 100 mg HS ESTEFANÍA Administration Radiology Results: ITS Impressions Chest CTA 10/29/24 20:37 IMPRESSION: No pulmonary embolus. No thoracic aortic dissection. Panlobular emphysematous disease with bibasilar honeycombing. Chest X-Ray 10/30/24 08:30 Impression: Clear lungs. COPD. Labs Labs: Laboratory Results - last 24 hr 10/27/24 10/30/24 10/30/24 14:04 08:08 08:19 WBC 10.0 RBC 4.40 L Hgb 13.9 L Hct 41.3 L MCV 93.9 MCH 31.6 MCHC 33.7 RDW 12.7 Plt Count 189 MPV 8.5 Puncture Site Right radial ABG pH 7.413 ABG pCO2 39.2 ABG pO2 70.8 L ABG PO2/FiO2 Ratio 3.37 ABG HCO3 24.5 ABG O2 Saturation 94.5 L ABG O2 Content 18.9 ABG Base Excess 0.0 A-a Gradient 32.0 Oxyhemoglobin 92.9 Total Hemoglobin 14.5 O2 Delivery Device Not Reportable O2 Liters/Min Not Reportable FiO2 21 Sodium 138 Potassium 3.7 Chloride 103 Carbon Dioxide 28 Anion Gap 7 BUN 16 Creatinine 0.80 Estim Creat Clear Calc 89 Estimated GFR > 60 Glucose 96 POC Capillary Glucose 278 H Calcium 8.9 Magnesium 1.9 Quality VTE Prophylaxis VTE prophylaxis: mechanical ordered and pharmacologic ordered
[2024-10-30] MEDS: AZITHROMYCIN 500 MG/NS 250 ML 500 MG/250 ML BAG 250 MG IVPB (14:08)
[2024-10-30] MEDS: ATORVASTATIN 40 MG TABLET 80 MG PO (20:24)
[2024-10-30] MEDS: traZODone HCL 50 MG TABLET 100 MG PO (20:24)
[2024-10-31] VITALS (8 sets, daily range): BP systolic 118–128; BP diastolic 68–81; PULSE 65–92; RESP 18; TEMP 36.4–36.6; O2SAT 93–98
[2024-10-31 08:09] LABS: Hemoglobin 14.2 g/dL (14.0-18.0); Mean Corpuscular HGB Conc 34.6 g/dl (32-36); Mean Corpuscular Hemoglobin 32.1 pg (26-34); Mean Corpuscular Volume 92.6 fl (80-100); Mean Platelet Volume 8.5 fl (7.4-10.4); Platelet Count Result 171 k/mm3 (150-375); Red Blood Count 4.43 M/mm3 (4.6-6.20); Red Cell Distribution Width 12.5 % (11.5-14.5); White Blood Count 7.8 K/mm3 (4.5-10.0)
[2024-10-31] MEDS: TICAGRELOR 90 MG TABLET PO (08:48)
[2024-10-31] MEDS: carvediloL 6.25 MG TABLET PO (08:48)
[2024-10-31] MEDS: ASPIRIN 81 MG ENTERIC TABLET PO (08:48)
[2024-10-31] MEDS: ARIPiprazole 2 MG TABLET PO (08:48)
[2024-10-31] MEDS: LOSARTAN POTASSIUM 12.5 MG TABLET PO (08:48)
[2024-10-31] MEDS: ENOXAPARIN 40 MG/0.4 ML SYRINGE SUB-Q (08:49)
[2024-10-31] MEDS: THIAMINE HCL 200 MG/2 ML VIAL 100 MG IV PUSH (08:49)
--- NOTE | 2024-10-31 08:49 | PM.PNPUL ---
Progress Note: A&P Assessment and Plan (1) COPD with chronic bronchitis and emphysema: Code(s): J44.89 - Other specified chronic obstructive pulmonary disease; J43.9 - Emphysema, unspecified Status: Chronic Assessment and Plan: Gold grade 3 COPD patient with a 64 pack year tobacco use, quit 5 years ago, daily marijuana use currently vaporizing THC at 5 inhalations a day, alpha 1 anti trypsin genotype MM, PFT @ [facility] 06/09/21 severe airways obstruction. No evidence of airways restriction. DLCO severely reduced. Significant improvement in in flow rates post bronchodilator. FEV1 39% pred, FEV1/FVC 44%. From pulmonology office visit note: May 2020 FEV1: FVC ratio 38% and FEV1 35% predicted. First CT scan in our system from 06/22 demonstrates moderate to severe centrilobular emphysema with mild bronchiectasis. Currently on no home oxygen. On a good day he can walk 200 yd. maintained on trelegy 100 and prescribed ohtuvayre but this has not been delivered to him yet. echocardiogram 10/28/2024 with LVEF 60 65%, abnormal diastolic function, moderate mitral regurg mildly enlarged left atrium, normal right atrium normal right ventricular size and function, PASP 33. 10/27/2024: Patient admitted to the hospital after he lost consciousness. He had no evidence of a COPD exacerbation prior to this event. He had wheezing in the emergency room with an acute respiratory acidosis 7.12/63 with a serum bicarbonate of 21 and a lactic acid of 5.5. He has been treated for COPD exacerbations with steroids, bronchodilators and being treated for pneumonia with ceftriaxone and azithromycin. Patient had hemoptysis that has resolved. 10/29/2024: currently the patient tells me he is at his baseline regarding his breathing with no rest shortness of breath. His dyspnea on exertion is increased compared to his usual. His cough is normal, he has no Increase in his phlegm production. He did have blood streak in his sputum this morning but none since. he is afebrile. Room air saturations 94%. His white blood cell count is 10.4, his creatinine is 0.71. Patient wore the hospital noninvasive ventilator with the AVAPS mode rate of 14, tidal volume 500, EPAP 4, minimal inspiratory pressure 5, maximal inspiratory pressure 25, inspiratory time 1.2, rise of 5 and 30% FiO2. ABG drawn prior to mass removal was 7.42/42/106. Plan: I will obtain CT angiogram of the chest to exclude pulmonary embolism. Patient says he is breathing back to normal no wheezing at this time. I will discontinue his prednisone, status post 3 days of systemic steroids. I will continue the patient on his trelegy 100 and discontinued nebulizers at this time. Will perform overnight oximetry on room air tonight. Will perform home O2 assessment prior to discharge. Later in the day patient had a CT angiogram of the chest which was negative for PE. He has severe apical greater than basilar centrilobular emphysema and minimal dependent atelectasis versus edema. 10/30/2024: Patient said he slept well. At rest he is breathing normal. His cough is normal. He did have some hemoptysis consisting of blood-streaked mucus last night. He has had none this morning. His rest room air saturations are 96%. Chest x-ray this morning shows no infiltrates or effusions. Patient had an overnight oximetry on room air with recording duration 6 hours and 8 minutes. Average saturation 91%. Low saturation 82%. Time with saturation less than or equal to 88% was 23 minutes. Oxygen desaturation index 7.6. Plan: I do not believe this is a COPD exacerbation. I will continue patient's home dose of trelegy 100. goal saturation 90-94%, currently the patient is on room air. I will order an overnight oximetry on 2 L. 10/31/2024: Patient said he slept well. He walked around the nurse's station yesterday without any difficulty. He states that his breathing and phlegm production or it is normal. He did have blood streak sputum and this is improved since it 1st started. Pain is on room air with saturations 96%.He is afebrile. White blood cell count 7.8. Weight today is 77.1 kg. Patient had an overnight oximetry on 2 L nasal cannula with recording duration 7 hours and 3 minutes. Average saturation 96%. Low saturation 91%. Time with saturation less than or equal to 88% was 0 minutes. Oxygen desaturation index 1.2. Plan: From a pulmonary perspective patient is ready to be discharged on these pulmonary medicines: Trelegy 100- 62.5-25 at 1 puff q.day Ensifentrine 2.5 ml neb BID (waiting for set up) Albuterol 2 puffs q.4 hours p.r.n. shortness of breath or wheezing Albuterol 1.25 mg neb q.4 hours p.r.n. shortness of breath or wheezing oxygen at rest and with activity for formal home O2 assessment which I have ordered When naps or sleeps: Oxygen 2 L NC Follow-up in the Pulmonary Clinic in 3-4 weeks. 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 Discussed with Dr. Clark, will sign off, call with questions. (2) Hypercapnia: Code(s): R06.89 - Other abnormalities of breathing Status: Acute Assessment and Plan: Patient presented with an acute respiratory acidosis 7. with a serum bicarbonate of 21 and a lactic acid of 5.5. he was initially treated with BiPAP. 10/29/24: Patient wore the hospital noninvasive ventilator with the AVAPS mode rate of 14, tidal volume 500, EPAP 4, minimal inspiratory pressure 5, maximal inspiratory pressure 25, inspiratory time 1.2, rise of 5 and 30% FiO2. ABG drawn prior to mass removal was 7.42/42/106. Plan: I will reassess him for chronic hypercarbic respiratory failure in leave him off of noninvasive ventilation for 24 hours and check a room air arterial blood gas tomorrow at 8:00 a.m.. 10/30/24: patient has improved and his breathing back to his baseline. patient has been off noninvasive ventilation for 24 hours. Plan: I will check an ABG today to assess for hypercarbic respiratory failure. Later in the day ABG on room air 7.41/39/71 10/31/2024: No evidence of chronic hypercarbic respiratory failure on ABG after he has recovered from his pulmonary edema. (3) Pneumonia: Code(s): J18.9 - Pneumonia, unspecified organism Status: Acute Assessment and Plan: Patient had no clinical infectious complaints prior to zone responsive episode. He did become unresponsive and may have aspirated. His initial white blood cell count was 14.2. He has been afebrile. His chest x-ray showed bibasilar interstitial alveolar infiltrates. COVID, influenza, RSV RT PCR study negative. 1 blood culture negative to date. 10/29/24: Patient remains afebrile, white blood cell count 10.4, no infectious complaints. Plan: I will check a CTA scan of the chest to reassess his infiltrates. Patient is on ceftriaxone and azithromycin day 3 both and I will continue. I will check a procalcitonin in the morning. Urine Legionella, urine pneumococcal, serum mycoplasma IgM are pending and I will order an extended respiratory pathogen panel. Later in the day patient had a CT angiogram of the chest which was negative for PE. He has severe apical greater than basilar centrilobular emphysema and minimal dependent atelectasis versus edema. 10/30/24: Patient's infiltrates had resolved within 48 hours which in my opinion was too fast for bacterial infection or aspiration injury. I suspect this was related to fluid. Plan: Continue ceftriaxone and azithromycin for now, Day 4 both. Urine Legionella, urine pneumococcal, serum mycoplasma IgM are pending and I will order an extended respiratory pathogen panel. I discussed the case with his structural iron worker and the patient has diastolic dysfunction with moderate mitral regurg and presented with hypertensive urgency a blood pressure 197/123 likely resulting in flash pulmonary edema. He felt no stress test was needed and to continue his current cardiac medications. 10/31/24: Patient is afebrile. Urine Legionella, urine pneumococcal, serum mycoplasma IgM and respiratory pathogen panel all pending. Plan: Today is day 5 of antibiotics and will discontinue at this time. Subjective Date/time seen: 10/31/24 08:49 Interval history: 10/29/24: This is a new pulmonary consult for pneumonia. 64-year-old with a history history of a NSTEMI, coronary artery disease, ischemic cardiomyopathy with an EF 30-35% in June of 2023 and improved 65% in August of 2023, hypertension, alcohol use, hyperlipidemia, and Gold grade 3 COPD Patient is followed in the Pulmonary Clinic in last seen on 09/29/2024. This is a copy of that office note. 3 month follow-up regarding COPD, dx 2018 when he quit smoking (60 pack years). PCP Dr. Balbir Zamora. Hx: CAD, ICM, hypertension, dyslipidemia, COPD, alcohol abuse, former smoking. Sees Dr. Freedman. Last visit, he started Daliresp. Today, he reports continued symptoms of TYELR along with wheezing. Not as much coughing but still has chest congestion clear w/o hemoptysis. He is maintained on Trelegy 100, Daliresp 500mcg daily, and albuterol PRN. Rarely uses rescue inhaler. He feels Trelegy works for him. He admits to not being very active. Consumes quart of wine nightly. Reports being compliant with dual antiplatelets. Has been on Brilinta for a little over 1 year. He does report feeling short of breath with tachycardia since starting Brilinta. He reports he may be coming off of it when he sees Dr. Freedman in follow-up. plan:Did not like Breztri. Hasn't noticed any significant difference with taking Daliresp. Continue Trelegy 100 and albuterol PRN. *Maranda FISHMAN to replace Daliresp. Consent signed. Will update PFT *PFT, 6mw Alternatively, if no benefit, consider all neb meds to replace Trelegy. Pulmonary rehab was recommended. He will think about it. I am curious if maybe his Brilinta may be contributing to his dyspnea as well. He plans to see Dr. Freedman in follow-up soon. Stay UTD on vaccinations, encourage daily exercise as tolerated. F/u 3 months or PRN. On a good day patient says he can walk 200 yd slowly. Patient is not on home oxygen and says that his rest saturations are usually 92%. With activities saturations go 88-90%. He has a chronic cough and production of white phlegm. Patient smoked a pack and half of cigarettes from age [age] for a total of 64 pack years. Patient smokes daily marijuana until 5 years ago. Since then he has been vaporizing THC products and takes 5 inhalations a day. He is not exposed to any secondhand smoke. Patient smoked crack cocaine from age [age] but none since. 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 He retired 20 years ago. On the morning of the patient was in his usual state of health. He slept normally that night, he woke up and took a shower and felt normal other than having low energy. He has baseline dyspnea on exertion while he took a shower. He denied fever, chills, rigors, change in his cough, change in his phlegm production. He did not do any marijuana vaping that morning and his last use was the night before. After his shower he said it is computer for an hour and was feeling normally. At approximately 1:00 p.m. he walked down hill to his car and he felt hot and short of breath more so than usual. He was in his car and he did not improve with rest and was going to drive himself to the hospital but symptoms worsened and he got out of his car and he sat down and called 911. He was panting but not wheezing. He had no chest pain. The patient then Lost consciousness and slumped over from a seated position and woke up in the emergency department. 10/27/2024: Patient brought to the emergency room after being found unresponsive in his driveway and respiratory distress. Room air pulse oximetry was 50% by EMS. Placed on a non-rebreather and saturations increased to 92. In the ED he was somnolent but responding to voice he did not tolerate BiPAP. Initial Blood pressure 197/123, heart rate 90, on BiPAP 50% pulse oximetry 98%. He had minimal air movement with wheezing in the upper p[place] and congestion in the lower pittman. His white blood cell count was 14.2 with eosinophils 2.2% equal 312/uL. creatinine 0.99, serum bicarbonate 21 lactic acid 5.5, BNP 781, troponin negative, alcohol less than 10. Influenza, RSV, COVID RT PCR negative. ABG on BiPAP was 7.12/63/146. Repeat ABG after on BiPAP for 1 hour was 7.30/40/177 on BiPAP rate of 14. 70% FiO2. Chest x-ray showed congestion versus pneumonia. Patient started on ceftriaxone and azithromycin. Patient tells me he had hemoptysis with blood clots. 10/28/2024: Notes state the patient was stable on BiPAP overnight and he felt better. Patient tells me he had blood streak sputum. Mucinex was added. Continue bronchodilators. Switch to oral steroids. Plan was to stop his BiPAP and recheck an ABG in the a.m.. 10/29/2024: currently the patient tells me he is at his baseline regarding his breathing with no rest shortness of breath. His dyspnea on exertion is increased compared to his usual. His cough is normal, he has no Increase in his phlegm production. He did have blood streak in his sputum this morning but none since. His white blood cell count is 10.4, his creatinine is 0.71. Patient wore the hospital noninvasive ventilator with the AVAPS mode rate of 14, tidal volume 500, EPAP 4, minimal inspiratory pressure 5, maximal inspiratory pressure 25, inspiratory time 1.2, rise of 5 and 30% FiO2. ABG drawn prior to mass removal was 7.42/42/106. Later in the day patient had a CT angiogram of the chest which was negative for PE. He has severe apical greater than basilar centrilobular emphysema and minimal dependent atelectasis versus edema. 10/30/2024: Patient said he slept well. At rest he is breathing normal. His cough is normal. He did have some hemoptysis consisting of blood-streaked mucus last night. He has had none this morning. His rest room air saturations are 96%. Chest x-ray this morning shows no infiltrates or effusions. Patient had an overnight oximetry on room air with recording duration 6 hours and 8 minutes. Average saturation 91%. Low saturation 82%. Time with saturation less than or equal to 88% was 23 minutes. Oxygen desaturation index 7.6. 10/31/2024: Patient said he slept well. He walked around the nurse's station yesterday without any difficulty. He states that his breathing and phlegm production or it is normal. He did have blood streak sputum and this is improved since it 1st started. Pain is on room air with saturations 96%.He is afebrile. White blood cell count 7.8. Weight today is 77.1 kg. Patient had an overnight oximetry on 2 L nasal cannula with recording duration 7 hours and 3 minutes. Average saturation 96%. Low saturation 91%. Time with saturation less than or equal to 88% was 0 minutes. Oxygen desaturation index 1.2. DATA: 10/31/24: Patient had an overnight oximetry on room air with recording duration 6 hours and 8 minutes. Average saturation 91%. Low saturation 82%. Time with saturation less than or equal to 88% was 23 minutes. Oxygen desaturation index 7.6. 10/30/2024: Patient had an overnight oximetry on 2 L nasal cannula with recording duration 7 hours and 3 minutes. Average saturation 96%. Low saturation 91%. Time with saturation less than or equal to 88% was 0 minutes. Oxygen desaturation index 1.2. 10/28/24: Echo Summary 1. Complete two-dimensional, color flow and Doppler transthoracic echocardiogram is performed. 2. Technically suboptimal study due to poor sonographic images. 3. Left ventricular chamber dimension is normal. 4. Left ventricular systolic function is normal, estimated at 60-65. 5. The left ventricular diastolic function is abnormal. 6. E/e' 16 is elevated. 7. Left atrial chamber dimension is mildly enlarged. 8. The aortic valve is not well visualized. Cannot determine number of aortic valve leaflets. 9. There is moderate mitral valve regurgitation. 10. No pulmonary hypertension, estimated pulmonary arterial systolic pressure is 33 mmHg. Right Ventricle Right ventricular chamber dimension is normal. Right ventricular systolic function is normal. Right Atria Right atrial chamber dimension is normal. Chest CT 06/19/24 - Stable 4 mm left upper lobe nodule, likely benign. Consider follow-up low dose CT chest in 12 months. Emphysema. Echo 04/06/24 - EF 60-65%, mild to moderate mitral valve stenosis, no pulm HTN With PASP 19. Chest CT 06/19/24 - Stable 4 mm left upper lobe nodule, likely benign. Consider follow-up low dose CT chest in 12 months. Emphysema. Echo 06/18/23 - EF 30-35%. 6mw 11/22/22 - did not require O2 Chest CTA 06/17/23 - There are small pleural effusions. There is moderate emphysema. There are new airspace opacities of the lower lobes and right middle lobe. There is a decreasing airspace opacity of the right upper lobe. No PE. Alpha 1 PIMM normal PFT @ [facility] 06/09/21 severe airways obstruction. No evidence of airways restriction. DLCO severely reduced. Significant improvement in in flow rates post bronchodilator. FEV1 39% pred, FEV1/FVC 44%. From pulmonology office visit note: May 2020 FEV1: FVC ratio 38% and FEV1 35% predicted. Review of Systems Constitutional: Constitutional: Reports no additional constitutional complaints Eyes: Eyes: Reports no additional eye complaints ENT: Reports system reviewed and no additional complaints, except as documented Cardiovascular: Cardiovascular: Reports no additional cardiovascular complaints Respiratory: Respiratory: Reports no additional respiratory complaints Gastrointestinal: Gastrointestinal: Reports no additional gastrointestinal complaints Musculoskeletal: Musculoskeletal: Reports no additional musculoskeletal complaints Neurologic: Reports system reviewed and no additional complaints, except as documented Psychiatric: Psychiatric: Reports no additional psychiatric complaints Endocrine: Endocrine: Reports no additional endocrine complaints Hematologic/Lymphatic: Hematologic/Lymphatic: Reports no additional hematologic/lymphatic complaints Allergic/Immunologic: Allergic/Immunologic: Reports no additional allergic/immunologic complaints Exam Const: General: cooperative, healthy appearing and comfortable Orientation/consciousness: oriented to person, oriented to place and oriented to time HENMT: Head: normal to inspection Ears: hearing grossly normal bilaterally Eyes: General: appearance normal, both eyes and all related structures Neck: Neck: normal visual inspection Chest: Chest palpation & inspection: normal inspection of the chest Resp: Effort & Inspection: normal respiratory effort and able to speak in complete sentences Auscultation: no crackles, no rales, no rhonchi, no wheezes and lung sounds not diminished Cardio: Jugular venous distension: no JVD GI: Inspection: normal to inspection Skin: General skin exam: normal color Neuro: General: oriented to person, oriented to place and oriented to time Extrem: General: normal to inspection and no edema Psych: Appearance: grossly normal Objective Data Vital Signs Vital Signs: Vital Signs - 24 hr 10/30/24 12:00 10/30/24 14:30 10/30/24 16:00 Temperature 36.3 C L Pulse Rate 66 70 67 Respiratory Rate 16 Blood Pressure 143/86 H Pulse Oximetry 95 Oxygen Delivery Oxygen Flow Rate 10/30/24 20:00 10/30/24 20:00 10/30/24 20:24 Temperature Pulse Rate 74 70 Respiratory Rate Blood Pressure Pulse Oximetry Oxygen Delivery Room Air Oxygen Flow Rate 10/30/24 22:40 10/31/24 00:00 10/31/24 00:00 Temperature 36.4 C Pulse Rate 68 74 Respiratory Rate 18 Blood Pressure 128/81 Pulse Oximetry 97 95 Oxygen Delivery Nasal Cannula Oxygen Flow Rate 2 10/31/24 04:00 10/31/24 06:27 10/31/24 08:00 Temperature 36.6 C 36.5 C Pulse Rate 70 71 68 Respiratory Rate 18 18 Blood Pressure 120/71 118/68 Pulse Oximetry 98 96 Oxygen Delivery Oxygen Flow Rate 10/31/24 08:48 Temperature Pulse Rate 65 Respiratory Rate Blood Pressure Pulse Oximetry Oxygen Delivery Oxygen Flow Rate Intake/Output Intake/Output: Intake & Output 10/28/24 10/29/24 10/30/24 10/31/24 23:59 23:59 23:59 23:59 Intake Total 1030 1320 1080 480 Output Total 2580 775 Balance -5894 238 5228 480 Meds/Results Medications: Active Medications Generic Name Dose Route Start Last Admin Trade Name Freq PRN Reason Stop Dose Admin Alendronate Sodium 70 mg 10/29/24 09:00 10/29/24 09:52 Alendronate Sodium 70 Mg Tablet PO 70 mg WEEKLY ESTEFANÍA Administration Aripiprazole 2 mg 10/28/24 09:00 10/31/24 08:48 Aripiprazole 2 Mg Tablet PO 2 mg DAILY ESTEFANÍA Administration Aspirin 81 mg 10/28/24 08:00 10/31/24 08:48 Aspirin 81 Mg Enteric Tablet PO 81 mg DAILY@0800 ESTEFANÍA Administration Atorvastatin Calcium 80 mg 10/28/24 21:00 10/30/24 20:24 Atorvastatin 40 Mg Tablet PO 80 mg HS ESTEFANÍA Administration Carvedilol 6.25 mg 10/27/24 22:20 10/31/24 08:48 Carvedilol 6.25 Mg Tablet PO 6.25 mg Q12HR ESTEFANÍA Administration Enoxaparin Sodium 40 mg 10/28/24 09:00 10/31/24 08:49 Enoxaparin 40 Mg/0.4 Ml Syringe SUB-Q 40 mg DAILY ESTEFANÍA Administration Fluticasone/Umeclidinium/Vilanterol 1 puff 10/28/24 08:00 10/30/24 08:05 Fluticasone/Umeclidin/Vilanter 100-62.5-25 Mcg Ellipta INHALATION 1 puff DAILYRT ESTEFANÍA Administration Ceftriaxone Sodium 1 gm in 50 mls @ 100 mls/hr 10/28/24 14:00 10/30/24 13:12 Rocephin 1 Gm/Ns 50 Ml IVPB 100 mls/hr Q24H ESTEFANÍA Administration Azithromycin 500 mg in 250 mls @ 250 mls/hr 10/28/24 14:00 10/30/24 14:08 Zithromax IVPB 250 mls/hr Q24H ESTEFANÍA Administration Lorazepam 2 mg 10/27/24 22:09 Lorazepam Inj (*Crx) 2 Mg/Ml Vial IV PUSH Q4H PRN CIWA 8-15 Losartan Potassium 12.5 mg 10/28/24 09:00 10/31/24 08:48 Losartan Potassium 12.5 Mg Tablet PO 12.5 mg DAILY ESTEFANÍA Administration Perflutren Lipid Microsphere 0 ml 10/28/24 09:35 Perflutren Lipid Microspheres 1.5 Ml Vial Diluted To 10 Ml Total Volume IV PUSH 10/31/24 09:36 ONCE PRN adequate visualization Protocol Thiamine HCl 100 mg 10/28/24 09:00 10/31/24 08:49 Thiamine Hcl 200 Mg/2 Ml Vial IV PUSH 100 mg DAILY ESTEFANÍA Administration Ticagrelor 90 mg 10/27/24 22:15 10/31/24 08:48 Ticagrelor 90 Mg Tablet PO 90 mg Q12HR ESTEFANÍA Administration Trazodone HCl 100 mg 10/27/24 23:10 10/30/24 20:24 Trazodone Hcl 50 Mg Tablet PO 100 mg HS ESTEFANÍA Administration Radiology Results: ITS Impressions Chest CTA 10/29/24 20:37 IMPRESSION: No pulmonary embolus. No thoracic aortic dissection. Panlobular emphysematous disease with bibasilar honeycombing. Chest X-Ray 10/30/24 08:30 Impression: Clear lungs. COPD. Labs Labs: Laboratory Results - last 24 hr 10/30/24 10/30/24 10/31/24 08:08 08:19 07:56 WBC 7.8 RBC 4.43 L Hgb 14.2 Hct 41.0 L MCV 92.6 MCH 32.1 MCHC 34.6 RDW 12.5 Plt Count 171 MPV 8.5 Puncture Site Right radial ABG pH 7.413 ABG pCO2 39.2 ABG pO2 70.8 L ABG PO2/FiO2 Ratio 3.37 ABG HCO3 24.5 ABG O2 Saturation 94.5 L ABG O2 Content 18.9 ABG Base Excess 0.0 A-a Gradient 32.0 Oxyhemoglobin 92.9 Total Hemoglobin 14.5 O2 Delivery Device Not Reportable O2 Liters/Min Not Reportable FiO2 21 Sodium 138 Potassium 3.7 Chloride 103 Carbon Dioxide 28 Anion Gap 7 BUN 16 Creatinine 0.80 Estim Creat Clear Calc 89 Estimated GFR > 60 Glucose 96 Calcium 8.9 Magnesium 1.9
[2024-10-31] MEDS: FLUTICASONE/UMECLIDIN/VILANTER 100-62.5-25 MCG ELLIPTA 1 PUFF INHALATION (08:55)
[2024-10-31] MEDS: AZITHROMYCIN 250 MG TABLET 500 MG PO (10:01)
--- NOTE | 2024-10-31 11:07 | PCRCNOTE ---
Pt requires 2 liters home O2 at night with sleep. DME IV [facility]P [facility] [phone]
--- NOTE | 2024-10-31 12:12 | PM.DS ---
DS: Summary Time Spent with Patient Time attestation: Total time spent providing and/or coordinating discharge services: DS: Data Data Completed and Pending Labs on day of discharge: Labs from last 24 hours 10/31/24 07:56 WBC 7.8 RBC 4.43 L Hgb 14.2 Hct 41.0 L MCV 92.6 MCH 32.1 MCHC 34.6 RDW 12.5 Plt Count 171 MPV 8.5 Sodium Pending Potassium Pending Chloride Pending Carbon Dioxide Pending Anion Gap Pending BUN Pending Creatinine Pending Estim Creat Clear Calc Pending Estimated GFR Pending Glucose Pending Calcium Pending Magnesium Pending Preliminary micro results at discharge 10/27/24 15:36 Blood Culture - Preliminary Blood Discharge Plan Discharge Attending physician on discharge: Maih Meneses Consulting providers: Dieudonne Mcwilliams Discharging Clinician: Moses Clark Patient Disposition: Home Activity: as tolerated Diet: heart healthy Patient Instructions: Antibiotic Form, Enoxaparin (By injection), Pneumonia (GEN) Patient Language: Turkish Stand Alone Forms: General Discharge Information Follow-up/Referrals: Dieudonne Posada MD [Primary Care Provider] - Dieudonne Mcwilliams MD [Physician] - Discharge Medications: Continued trazodone 100 mg tablet 100 mg PO HS vitamin B complex-folic acid [B Complex 1 (with folic acid)] 0.4 mg tablet 1 tablet PO DAILY alendronate 70 mg tablet 70 mg PO WEEKLY Qty: 12 2RF Rx Instructions: Takes on Sunday omeprazole 20 mg capsule,delayed release(DR/EC) 20 mg PO DAILY Qty: 90 2RF aripiprazole 2 mg tablet 2 mg PO DAILY losartan 25 mg tablet 12.5 mg PO DAILY Qty: 90 3RF multivitamin [Daily Multi-Vitamin] Tablet 1 tablet PO DAILY aspirin 81 mg tablet,delayed release (DR/EC) 81 mg PO DAILY@0800 Qty: 90 3RF calcium 100 mg Capsule 100 mg PO DAILY Trelegy Ellipta 100-62.5-25 mcg blister with device 1 inh inhalation QAM Qty: 60 11RF Rx Instructions: rinse and spit carvedilol 6.25 mg tablet 6.25 mg PO Q12H Qty: 60 5RF Rx Instructions: must administer with a meal/food atorvastatin 80 mg tablet 80 mg PO HS Qty: 30 5RF albuterol sulfate 1.25 mg/3 mL solution for nebulization 1.25 mg inhalation Q6H PRN (Reason: shortness of breath or wheezing) Qty: 360 2RF Brilinta 90 mg tablet 90 mg PO Q12HR Qty: 180 2RF Ohtuvayre 3 mg/2.5 mL suspension for nebulization 2.5 ml inhalation QAM AND QPM Qty: 150 5RF Rx Instructions: This will replace Daliresp (roflumilast) Date of admission: 10/27/24 16:32 Primary Care Provider: Dieudonne Posada Admitting Provider: Miah Meneses Attending physician on admission: Miah Meneses Condition: Serious
[2024-10-31 18:17] LABS: Pneumococcal Antigen Urine NOT DETECTED
[2024-10-31 18:58] LABS: Legionella pneumophila Ag Ur NOT DETECTED
[2024-10-31 19:10] LABS: Anion Gap 4 mmol/L (4-12); Blood Urea Nitrogen 14 mg/dL (9-20); Calcium 8.8 mg/dL (8.4-10.2); Carbon Dioxide 28 mmol/L (22-30); Chloride 104 mmol/L (98-107); Estimated CRCL calculation 100 ml/min; Estimated Glomerular Filt Rate > 60; Glucose 98 mg/dL (65-110); Magnesium 1.9 mg/dL (1.6-2.3); Potassium 3.6 mmol/L (3.4-5.0); Sodium 136 mmol/L (137-145)
[2024-10-31 21:48] LABS: Mycoplasma IgM Antibody Titer 81 U/mL
[2024-11-02 14:04] LABS: Adenovirus DNA Not Detected (Not Detected); Chlamydophila pneumoniae Not Detected (Not Detected); Coronavirus 229E Not Detected (Not Detected); Coronavirus HKU1 Not Detected (Not Detected); Coronavirus NL63 Not Detected (Not Detected); Coronavirus OC43 Not Detected (Not Detected); Human Metapneumovirus Not Detected (Not Detected); Human Parainfluenza Virus 1 Not Detected (Not Detected); Human Parainfluenza Virus 2 Not Detected (Not Detected); Human Parainfluenza Virus 3 Not Detected (Not Detected); Human Parainfluenza Virus 4 Not Detected (Not Detected); Human RSV B Not Detected (Not Detected); Influenza A Not Detected (Not Detected); Influenza B Not Detected (Not Detected); Mycoplasma pneumoniae Not Detected (Not Detected); Rhinovirus/Enterovirus Not Detected (Not Detected)
== END 2024-10-31 13:55 | disposition home or self-care (01) | DRG 139 ==
LOC: ANHED 15:37 → ANHIMU 16:18 → ANH2MED 10-31 12:07 → ANHIMU 11-04 11:50
PROVIDERS: Internal Medicine; Internal Medicine Pulmonary Disease; Admitting Provider Internal Medicine; Emergency Provider Emergency Medicine; PCP Emergency Medicine; Visit Provider Family Medicine
DX: J18.9 Pneumonia, unspecified organism (principal); J96.02 Acute respiratory failure with hypercapnia; I25.10 Atherosclerotic heart disease of native coronary artery without angina pectoris; R04.2 Hemoptysis; J43.9 Emphysema, unspecified; I10 Essential (primary) hypertension; K21.9 Gastro-esophageal reflux disease without esophagitis; I25.5 Ischemic cardiomyopathy; M81.0 Age-related osteoporosis without current pathological fracture; E78.5 Hyperlipidemia, unspecified; F41.8 Other specified anxiety disorders; F10.20 Alcohol dependence, uncomplicated; Z87.891 Personal history of nicotine dependence; I25.2 Old myocardial infarction; Z95.5 Presence of coronary angioplasty implant and graft
CPT/HCPCS: 36415; 36600; 71045; 71275; 80048; 80053; 81001; 82077; 82375; 82805; 82948; 83036; 83050; 83605; 83735; 83880; 84484; 85018; 85025; 85027; 85610; 85730; 86140; 86738; 87040; 87449; 87633; 87637; 87641; 87899; 93005; 93306; 94002; 94640; 94762; 96365; 96367; 96368; 96375; 99291; A9270; G0378; J0456; J0696; J1200; J1650; J1815; J2919; J3411; J3475; J7120; J7121; J7512; Q9967

== ENCOUNTER 2024-11-05 14:33 | Outpatient (CLI) | payer OTHER, SELFPAY ==
--- OUTSIDE RECORDS SUMMARY | 2024-11-05 14:37 | XMS_ITS | Clinical Summary ---
Author Organization [facility] Address [address] [place] [address] Care Team Providers Care Veterinary Surgery Technician Name Role Phone Ivette Barba APRN-MAC OPERATOR Primary Care Provider Source Comments [facility],non-owned Affiliates and Associated Physician Practices is amultiple site organization consisting of ambulatory clinics and hospital sitesin [place], [place], [place] and [place]. This disclosure is being madepursuant to the Care Everywhere program and may not contain all information available regarding this patient. 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
--- OUTSIDE RECORDS SUMMARY | 2024-11-05 14:37 | XMS_ITS | Clinical Summary ---
Author Organization [facility] Address [address] [facility] [place] [address] Phone Care Team Providers Care Harness Cutter Name Role Phone Ivette Barba APRN, ACADEMIC INTERVENTIONIST Primary Care Pro vider Allergies No known active allergies Medications buPROPion, Smoking Deter, (ZYBAN) 150 MG TABLET SR 12 HR Take 150 mg by mouth 2 times daily. Active diazePAM (VALIUM) 5 MG Tablet Take 5 mg by mouth every 8 hours as needed. Active famotidine (PEPCID) 20 MG Tablet Take 20 mg by mouth 2 times daily. Active [place]-3 Fatty Acids (FISH OIL PO) Take by [...] Comments Blood Pressure 120/70 06/27/2021 1:33 PM MULTIMEDIA AUTHORING SPECIALIST Pulse 66 06/27/2021 1:33 PM MULTIMEDIA AUTHORING SPECIALIST Temperature 36.6 C (97.9 F) 06/27/2021 1:33 PM MULTIMEDIA AUTHORING SPECIALIST Respiratory Rate 16 06/27/2021 1:33 PM MULTIMEDIA AUTHORING SPECIALIST Oxygen Saturation 97% 06/27/2021 1:33 PM MULTIMEDIA AUTHORING SPECIALIST Inhaled Oxygen Concentration - - Weight 78.1 kg (172 lb 1.6 oz) 06/27/2021 1:33 P M MULTIMEDIA AUTHORING SPECIALIST Height 180.3 cm (5' 11) 06/27/2021 1:33 PM MULTIMEDIA AUTHORING SPECIALIST Body Mass Index 24 06/27/2021 1:33 PM MULTIMEDIA AUTHORING SPECIALIST Plan of Treatment Health Maintenance Due Date [...] this topic Insurance [place] Care Teams Harness Cutter Relationship Specialty Start Date End Date Ivette Barba APRN, ACADEMIC INTERVENTIONIST [address] [place] [address] PCP - General Certified Nurse Practitioner 06/09/21
--- NOTE | 2024-11-13 12:18 | P.PCNPFT_ITS ---
PFT Procedure Performed PFT Procedure Performed Spirometry with Pre/Post Bronchodilator Plethysmography (Lung Vol) Diffusing Cap (DLCO) Flow Vol Loop PFT Interpretation DOS: 11/05/2024 REQUESTING: Mauricio Polanco APRN REASON FOR TESTING: COPD, pulmonary rehab PULMONARY FUNCTION TESTS Results are reliable and reproducible. Repeatability of spirometry FEV1 maneuver pre and post bronchodilator is Grade A. GLI 2012 reference equations were used. Spirometry: The pre-bronchodilator FEV1 is 1.06 L, 29%, severely decreased. The pre-bronchodilator FVC is 3.23 L, 69%, mildly decreased. The FEV1/FVC ratio is 33%, decreased, consistent with airflow obstruction. After bronchodilator, the FEV1 is 1.23 L, 34% predicted, +16%. The post-bronchodilator FVC is 3.66 L, 78%, +13%. This is a statistically significant increase after bronchodilator administration. The FEV1/FVC ratio is 34%. Lung volumes: The total lung capacity is 8.11 L, 113%, normal. The residual volume is 4.74 L, 203%, increased, consistent with air trapping. The RV/TLC is 58%, increased. FRC is 5.92 L, 157%, increased. Airway resistance is increased. Diffusion: DLCO is 11.5, 40%, severely decreased. The DLCO/VA is 2.54, 62%, moderately decreased. Flow volume loop: The flow volume loop shows coving of the expiratory limb c onsistent with airflow obstruction. IMPRESSION: This study shows an extremely severe obstructive ventilatory impairment with a significant response to bronchodilator administration, severe air trapping and a severe diffusion impairment which partially corrects when adjusted for alveolar volume. No prior studies for comparison. Linn Reeves MD
--- NOTE | 2024-11-13 12:24 | WPDSIXMINUTE ---
Six Minute Walk Procedure Procedure Performed Pulmonary Stress Test (6 min walk) Six Minute Walk Six Minute Walk: DATE OF SERVICE: 11/05/2024 REQUESTING: Mauricio Polanco APRN REASON FOR TESTING: COPD, pulmonary rehab SIX MINUTE WALK This test was conducted per ATS guidelines, breathing room air and not using any walking aid. The initial saturation was 96%, and initial heart rate was 67 beats per minute. The patient walked without stopping, completing 243.8 m/800 ft. The saturation at the end of testing was 95%, and the heart rate was 66 beats per minute. The dyspnea fatigue scale at the beginning of the study was 0/1. At the end of this study the dyspnea/fatigue score was also 0.1. The lowest saturation during testing was 91%. IMPRESSION: This is a normal study. The patient did not require supplemental oxygen with exertion. Linn Reeves MD
== END 2024-11-05 14:34 | disposition home or self-care (01) ==
PROVIDERS: PCP Emergency Medicine; Visit Provider Nurse Practitioner Family
DX: J44.89 Other specified chronic obstructive pulmonary disease (principal); J43.9 Emphysema, unspecified
CPT/HCPCS: 94060; 94618; 94726; 94729

== ENCOUNTER 2024-11-18 14:41 | Outpatient (RCR) | payer OTHER, SELFPAY | END 2024-12-25 13:49 | disposition home or self-care (01) | LOC: ANHCPREHAB 14:41 | PROVIDERS: PCP Emergency Medicine; Visit Provider Internal Medicine Critical Care Medicine | DX: J43.9 Emphysema, unspecified (principal) | CPT/HCPCS: 94625 ==

== ENCOUNTER 2024-12-13 13:26 | Inpatient (IN) | payer OTHER, SELFPAY ==
[2024-12-13] VITALS (16 sets, daily range): BP systolic 110–158; BP diastolic 67–100; PULSE 87–110; RESP 17–35; TEMP 36.6–37.4; O2SAT 90–100; BMI 23.1
--- NOTE | ~2024-12-13 | CT_ITS ---
EXAMINATION: CTA chest PE protocol DATE: 12/13/2024 15:11 INDICATION: Shortness of breath elevated D-dimer eval PE TECHNIQUE: Computed tomography angiography (CTA) of the chest was performed with 100 mL Omnipaque-350 intravenous contrast timed to evaluate the pulmonary arteries. Coronal maximum intensity projection 3D-reconstructions were created by the technologist. The dose-length product (DLP) was 268.21 mGy-cm. Automated exposure control and iterative reconstruction technique were employed. COMPARISON: 10/29/2024, 06/19/2024. FINDINGS: Lung parenchyma and airways: Patent airways. Severe emphysematous change. Dependent consolidation in the right middle lobe and bilateral lower lobes. Septal thickening. 9 mm irregular nodule in the supe rior portion of the left lower lobe. Persistent left lower lobe nodule more inferiorly, slightly smal ler than the prior study now measuring 7 mm. 9 mm lingular nodular opacity, stable, with additional c entral areas of focal consolidation. Benign left upper lobe granuloma (image 37/144). Pleura: Trace bilateral pleural fluid collections. Thoracic inlet, axillae and chest wall: Unremarkable. Thoracic aorta: No significant dilation. No dissection. Mild atherosclerotic calcification. Mediastinum: Normal. Heart and pericardium: Normal. Coronary artery calcifications: Moderate. Upper abdomen: No significant finding. Bones: No acute osseous finding. Pulmonary arteries: Study quality: Adequate. No pulmonary emboli detected. IMPRESSION: No CT evidence of acute pulmonary embolus. Pulmonary findings most consistent with moderate pulmonary edema overlying severe emphysematous ferraro e. Scattered inflammatory infectious foci. Reviewed, dictated and finalized at location K. IMPRESSION: No CT evidence of acute pulmonary embolus. Pulmonary findings most consistent with moderate pulmonary edema overlying rosamaria re emphysematous change. Scattered inflammatory infectious foci.
--- NOTE | ~2024-12-13 | XR_ITS ---
CHEST RADIOGRAPH CLINICAL HISTORY: dyspnea COPD coughing up blood tinged sputum. COMPARISON: 10/30/2024 TECHNIQUE: Single portable view of the chest. FINDINGS The cardiomediastinal silhouette is unremarkable. Interstitial thickening is identified within the bilateral lung pittman, with primarily a bibasilar di stribution, with patchy groundglass opacification, for which acute on chronic interstitial lung disea se is suspected, possibly representing pneumonia. IMPRESSION: Findings within the bilateral lower lobes for which an infectious etiology is suspected. Reviewed, dictated and finalized at location A. IMPRESSION: Findings within the bilateral lower lobes for which an infectious etiology is s uspected.
--- NOTE | 2024-12-13 13:31 | ECG_ITS ---
Test Date: 2024-12-13 13:35:35 Measurements Intervals [place] Rate: 106 P: 48 OK: 160 QRS: 87 QRSD: 90 T: 79 QT: 318 QTc: 423 Interpretive Statements SINUS TACHYCARDIA POSSIBLE RIGHT VENTRICULAR CONDUCTION DELAY [RSR (QR) IN V1/V2] ABNORMAL RHYTHM ECG heart rate increased Electronically Signed On 12-13-2024 14:14:05 CDT by Matt Calvillo M.D.
[2024-12-13 13:46] LABS: Hematocrit 46.2 % (42.0-52.0); Hemoglobin 15.9 g/dL (14.0-18.0); Immature Granulocyte Percent A 0.5 % (0-0.5); Lymphocytes Absolute Auto 0.74 K/mm3 (0.9-3.2); Mean Corpuscular HGB Conc 34.4 g/dl (32-36); Mean Corpuscular Hemoglobin 32.1 pg (26-34); Mean Corpuscular Volume 93.3 fl (80-100); Nucleated Red Blood Cells Absolute Auto 0.000 K/mm3 (0.0-0.012); Nucleated Red Blood Cells Perc 0.0 % (0.0-0.2); Platelet Count Result 205 k/mm3 (150-375); Red Blood Count 4.95 M/mm3 (4.6-6.20); White Blood Count 11.9 K/mm3 (4.5-10.0)
[2024-12-13 13:53] LABS: Alveolar/Arterial O2 Gradient 109.4 mmHg; Fractional Inspired Oxygen 32 %; HCO3 ABG 25.6 mEq/l (22.0-26.0); Oxygen Content ABG 21.1 %vol (16.0-22.0); Oxygen Saturation ABG 91.5 % (95.0-100.0); PCO2 ABG 46.7 mmHg (35.0-45.0); PO2 ABG 64.1 mmHg (80.0-100.0); PO2 FiO2 Ratio Arterial Blood 2.00 %
[2024-12-13 13:55] LABS: Site Drawn RIGHT RADIAL
[2024-12-13 13:56] LABS: Liters per Minute 3.0 LPM; Modified Allen's Test Pass
[2024-12-13 13:59] LABS: Alanine Aminotransferase 28 U/L (6-50); Albumin Level 4.4 g/dL (3.5-5.1); Alkaline Phosphatase 66 U/L (38-126); Anion Gap 12 mmol/L (4-12); Aspartate Amino Transferase 51 U/L (17-59); Bilirubin,Total 0.4 mg/dL (0.2-1.3); Blood Urea Nitrogen 12 mg/dL (9-20); Calcium 8.8 mg/dL (8.4-10.2); Carbon Dioxide 27 mmol/L (22-30); Chloride 99 mmol/L (98-107); Estimated CRCL calculation 86 ml/min; Estimated Glomerular Filt Rate > 60; Glucose 211 mg/dL (65-110); Potassium 4.8 mmol/L (3.4-5.0); Sodium 138 mmol/L (137-145); Total Protein 7.6 g/dL (6.3-8.2)
[2024-12-13 14:05] LABS: INR 0.9; Partial Thromboplastin Time 30.0 Seconds (22.3-36.8); Prothrombin Time 12.4 Seconds (11.1-14.7)
[2024-12-13 14:11] LABS: NT Pro B Type Natriuretic Pept 199 pg/mL (19.9-100); Troponin I < 0.012 ng/mL (0.000-0.034)
--- OUTSIDE RECORDS SUMMARY | 2024-12-13 14:46 | XMS_ITS | Clinical Summary ---
Author Organization [facility] Address [address] [facility] [place] [address] Care Team Providers Care Rug Backing Stenciler Name Role Phone Ivette Barba APRN-BAKERY DELIVERER Primary Care Provider Source Comments [facility],non-owned Affiliates and Associated Physician Practices is amultiple site organization consisting of ambulatory clinics and hospital sitesin [place], [place], [place] and [place]. This disclosure is being madepursuant to the Care Everywhere program and may not contain all information available regarding this patient. 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
--- OUTSIDE RECORDS SUMMARY | 2024-12-13 14:46 | XMS_ITS | Clinical Summary ---
Author Organization [facility] Address [address] [facility] [place] [address] Phone Care Team Providers Care Egg Gatherer Name Role Phone Ivette Barba APRN, DIGITAL ASSOCIATE MEDIA DIRECTOR Primary Care Pro vider Allergies No known active allergies Medications buPROPion, Smoking Deter, (ZYBAN) 150 MG TABLET SR 12 HR Take 150 mg by mouth 2 times daily. Active diazePAM (VALIUM) 5 MG Tablet Take 5 mg by mouth every 8 hours as needed. Active famotidine (PEPCID) 20 MG Tablet Take 20 mg by mouth 2 times daily. Active [place]-3 Fatty Acids (FISH OIL PO) Take by [...] Comments Blood Pressure 120/70 06/27/2021 1:33 PM DATA RECOVERY PLANNER Pulse 66 06/27/2021 1:33 PM DATA RECOVERY PLANNER Temperature 36.6 C (97.9 F) 06/27/2021 1:33 PM DATA RECOVERY PLANNER Respiratory Rate 16 06/27/2021 1:33 PM DATA RECOVERY PLANNER Oxygen Saturation 97% 06/27/2021 1:33 PM DATA RECOVERY PLANNER Inhaled Oxygen Concentration - - Weight 78.1 kg (172 lb 1.6 oz) 06/27/2021 1:33 P M DATA RECOVERY PLANNER Height 180.3 cm (5' 11) 06/27/2021 1:33 PM DATA RECOVERY PLANNER Body Mass Index 24 06/27/2021 1:33 PM DATA RECOVERY PLANNER Plan of Treatment Health Maintenance Due Date Last Done Comments Hepatitis C Virus (HCV) Screening 1962 TdaP Immunization 1962 Pneumococcal Immunization (50+ years) (1 of 2 - PCV) 1981 Cologuard 2007 Colonoscopy 2007 Colorectal Cancer Screening 2007 Immunochemical Fecal Occult Blood 2007 Zoster Immunization (1 of 2) 2012 PSA Discussion 2017 Respiratory Syncytial Virus (RSV) Immunization (Adult) (1 - Risk 60-74 years 1-dose series) 2022 SARS-COV-2 Immunization ( season) 2024 03/13/2022, 03/30/2021, 09/20/2020, Additional history exists Influenza Immunization (Season Ended) 2025 04/14/2019, 05/29/2018 Hepatitis B Immunization Aged Out No longer eligible based on patient's age to complete this topic Human Papillomavirus (HPV) Immunization Aged Out No longer eligible based on patient's age to complete this topic Meningococcal Immunization (ACWY) Aged Out No longer eligible based on patient's age to complete this topic Rotavirus Immunization Aged Out No lo nger eligible based on patient's age to complete this topic Insurance [place]ICAID [place] Care Teams Egg Gatherer Relationship Specialty Start Date End Date Ivette Barba, COTTON GROWER, DIGITAL ASSOCIATE MEDIA DIRECTOR [address] [place] [address] PCP - General Certified Nurse Practitioner 06/09/21
[2024-12-13] MEDS: IPRATROPIUM 0.5 MG/ALBUTEROL SULFATE 2.5 MG AMPUL.NEB 3 ML INHALATION ×2 (15:12→20:19)
--- NOTE | 2024-12-13 15:39 | ED_ITS ---
HPI - General Adult General Chief complaint: Shortness of Breath/Dyspnea Stated complaint: COPD Time Seen by Provider: 12/13/24 14:43 History of Present Illness HPI narrative: Patient is 62-year-old gentleman who presents emergency department chief complaint of shortness of breath. Patient has prior history of COPD CHF and coronary disease the patient states he has had pink colored sputum and reports that he feels short of breath and feels similar to whenever he had pneumonia and heart failure exacerbation. Related Data Home Medications ?Medication ?Instructions ?Recorded ?Confirmed ?Last Taken ?Type trazodone 100 mg tablet 100 mg PO HS 11/10/22 11/20/24 11/10/23 21:00 History calcium 100 mg capsule 100 mg PO DAILY 06/19/23 11/20/24 11/10/23 17:00 History multivitamin (Daily Multi-Vitamin 1 tablet PO DAILY 03/13/24 11/20/24 Unknown History tablet) aripiprazole 2 mg tablet 2 mg PO DAILY 09/08/24 11/20/24 Unknown History vitamin B complex-folic acid 0.4 1 tablet PO DAILY 09/08/24 11/20/24 Unknown History mg tablet (B Complex 1 (with folic acid)) Allergies Allergy/AdvReac Type Severity Reaction Status Date / Time No Known Allergies Allergy Verified 11/20/24 14:25 Review of Systems 2 Review of Systems: A 10 system review of systems was completed on the patient and is negative except for what is stated in the HPI. Nursing and ancillary documentation was reviewed. [facility] Past Medical History Medical History Bilateral cataracts Non-STEMI (non-ST elevated myocardial infarction) Preop cardiovascular exam Shock CAD (coronary artery disease) Right lower lobe pneumonia Pneumonia Emphysema lung Hypertension Chronic hyponatremia Coronary artery disease Thoracic compression fracture Gastroesophageal reflux disease Ischemic cardiomyopathy EF is low as 30 to 35% in June 2023; improved to 60 to 65% on echo obtained in August 2023. Osteoporosis COPD with chronic bronchitis and emphysema Heavy alcohol use Anxiety and depression Hypercholesteremia Former smoker Surgical History Surgical History Hx of cataract surgery History of coronary artery stent placement (06/2023) x3 to the LAD. History of tonsillectomy Family History Family History Father Aneurysm Grandparent Black lung Social History Social History Social History: Surrogate medical decision maker: Valeriano Laguna, sibling. Code status: Full code. Smoking packs per day: 1.5 Smoking cigarettes per day: 30.0 Years smoked: 42 Smoking pack-years: 63.00 Smoking status: Former smoker Tobacco type: cigarettes Second hand tobacco smoke exposure: No Alcohol intake: current Drinks per week: 36 Alcohol use details: wine Substance use: current Substance use type: marijuana Last use: Sunday Do You Feel Safe in your Home?: Yes Lack of Transportation: No Lack of Food: Never True Current Housing: I Have Housing Concerned About Future Housing: No Difficulty Paying Gas/Electric Bills: No Difficulty Paying for Meds: No Currently Unemployed: No Education: High School Diploma/GED Difficulty w/ Childcare or Family Care: No Living arrangements: alone Additional living arrangements comments: Lives alone in [place]. 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 Spiritual care concerns: No Exam 2 Narrative: GENERAL: Well-appearing, well-nourished, and in no acute distress. HEAD: Normocephalic, atraumatic. EYES: PERRLA and EOMI. ENT: Nares clear, no rhinorrhea or epistaxis. Mucous membranes moist. NECK: Supple. CHEST: Rhonchi to auscultation. No respiratory distress. HEART: Regular rate and rhythm. No murmur heard. Normal peripheral pulses. ABDOMEN: Soft, nontender, nondistended, normal active bowel sounds. EXTREMITIES: Normal range of motion. No edema. SKIN: Warm, dry, no rash. NEURO: No focal deficits. Alert and oriented x3. PSYCH: Normal mood and affect. Course Vital Signs Vital signs: Vital Signs Temperature 36.6 C 12/13/24 13:34 Pulse Rate 103 H 12/13/24 13:34 Respiratory Rate 32 H 12/13/24 13:34 Blood Pressure 158/100 H 12/13/24 13:34 Pulse Oximetry 100 12/13/24 13:34 Oxygen Delivery Non-Rebreather Mask 12/13/24 13:34 Oxygen Flow Rate 10 12/13/24 13:34 Temperature 36.6 C 12/13/24 13:34 Pulse Rate 106 H 12/13/24 15:24 Respiratory Rate 20 12/13/24 15:24 Blood Pressure 129/88 12/13/24 14:00 Pulse Oximetry 92 12/13/24 14:00 Oxygen Delivery Nasal Cannula 12/13/24 13:41 Oxygen Flow Rate 4 12/13/24 13:41 Medical Decision Making MDM Narrative Medical decision making narrative: Differential diagnosis includes pneumonia, CHF, COPD exacerbation Laboratory studies were obtained on the patient showed a VBG with a pH of 7.357 pCO2 was 46 PO2 was 64 patient was 91% on 3 L Chest x-ray showed bilateral lower lobe infiltrates CTA chest showed no evidence of PE but did show evidence of infection and also pulmonary edema BNP was 1 9 9 troponin was negative D-dimer was elevated at 1.45 lactate was 1.3 The patient was started on IV antibiotics Rocephin and Zithromax Plan will be discussed case with the hospitalist Vital Signs Vital Signs: Vital Signs Temperature 36.6 C 12/13/24 13:34 Pulse Rate 103 H 12/13/24 13:34 Respiratory Rate 32 H 12/13/24 13:34 Blood Pressure 158/100 H 12/13/24 13:34 Pulse Oximetry 100 12/13/24 13:34 Oxygen Delivery Non-Rebreather Mask 12/13/24 13:34 Oxygen Flow Rate 10 12/13/24 13:34 Temperature 36.6 C 12/13/24 13:34 Pulse Rate 106 H 12/13/24 15:24 Respiratory Rate 20 12/13/24 15:24 Blood Pressure 129/88 12/13/24 14:00 Pulse Oximetry 92 12/13/24 14:00 Oxygen Delivery Nasal Cannula 12/13/24 13:41 Oxygen Flow Rate 4 12/13/24 13:41 Lab Data 12/13/24 13:40 12/13/24 13:40 Labs: Lab Results 12/13/24 Range/Units 13:40 WBC 11.9 H (4.5-10.0) K/mm3 RBC 4.95 (4.6-6.20) M/mm3 Hgb 15.9 (14.0-18.0) g/dL Hct 46.2 (42.0-52.0) % MCV 93.3 (80-100) fl MCH 32.1 (26-34) pg MCHC 34.4 (32-36) g/dl RDW 12.8 (11.5-14.5) % Plt Count 205 (150-375) k/mm3 MPV 8.0 (7.4-10.4) fl Immature Gran % (Auto) 0.5 (0-0.5) % Neut % (Auto) 86.2 H (45.5-73.1) % Lymph % (Auto) 6.2 L (18.3-44.2) % [place] % (Auto) 5.6 (2.6-8.5) % Eos % (Auto) 1.2 (0-4.4) % Baso % (Auto) 0.3 (0.2-1.2) % Lymph # (Auto) 0.74 L (0.9-3.2) K/mm3 [place] # (Auto) 0.7 H (0.1-0.6) K/mm3 Eos # (Auto) 0.1 (0-0.3) K/mm3 Baso # (Auto) 0.0 (0.0-0.1) K/mm3 Abs Immat Gran (auto) 0.06 H (0.00-0.031) K/mm3 Absolute Neuts (auto) 10.2 H (1.3-6.7) K/mm3 Absolute Nucleated RBC 0.000 (0.0-0.012) K/mm3 Nucleated RBC % 0.0 (0.0-0.2) % PT 12.4 (11.1-14.7) Seconds INR 0.9 APTT 30.0 (22.3-36.8) Seconds D-Dimer 1.45 H (<0.48) ug/mL Sodium 138 (137-145) mmol/L Potassium 4.8 (3.4-5.0) mmol/L Chloride 99 (98-107) mmol/L Carbon Dioxide 27 (22-30) mmol/L Anion Gap 12 (4-12) mmol/L BUN 12 (9-20) mg/dL Creatinine 0.83 (0.7-1.3) mg/dL Estim Creat Clear Calc 86 ml/min Estimated GFR > 60 (59 - ) Glucose 211 H (65-110) mg/dL Lactic Acid 1.3 (0.7-2.0) mmol/L Calcium 8.8 (8.4-10.2) mg/dL Total Bilirubin 0.4 (0.2-1.3) mg/dL AST 51 (17-59) U/L ALT 28 (6-50) U/L Alkaline Phosphatase 66 (38-126) U/L Troponin I < 0.012 (0.000-0.034) ng/mL NT-Pro-B Natriuret Pep 199 H (19.9-100) pg/mL Total Protein 7.6 (6.3-8.2) g/dL Albumin 4.4 (3.5-5.1) g/dL ABG Data ABG results: 12/13/24 13:49 Puncture Site Right radial ABG pH 7.357 ABG pCO2 46.7 H ABG pO2 64.1 L ABG PO2/FiO2 Ratio 2.00 ABG HCO3 25.6 ABG O2 Saturation 91.5 L ABG O2 Content 21.1 ABG Base Excess -0.4 A-a Gradient 109.4 Oxyhemoglobin 90.4 Total Hemoglobin 16.6 O2 Delivery Device Nasal cannula O2 Liters/Min 3.0 FiO2 32 Discharge Plan Discharge Clinical Impression: Pneumonia, Breath shortness, Acute hypoxemic respiratory failure Patient Disposition: Still a Patient Condition: Stable Patient Language: Macedonian Prescriptions: No Action trazodone 100 mg tablet 100 mg PO HS vitamin B complex-folic acid [B Complex 1 (with folic acid)] 0.4 mg tablet 1 tablet PO DAILY alendronate 70 mg tablet 70 mg PO WEEKLY Qty: 12 2RF Rx Instructions: Takes on Sunday omeprazole 20 mg capsule,delayed release(DR/EC) 20 mg PO DAILY Qty: 90 2RF aripiprazole 2 mg tablet 2 mg PO DAILY losartan 25 mg tablet 12.5 mg PO DAILY Qty: 90 3RF furosemide 20 mg tablet 20 mg PO QAM Qty: 30 5RF multivitamin [Daily Multi-Vitamin] Tablet 1 tablet PO DAILY aspirin 81 mg tablet,delayed release (DR/EC) 81 mg PO DAILY@0800 Qty: 90 3RF calcium 100 mg Capsule 100 mg PO DAILY Trelegy Ellipta 100-62.5-25 mcg blister with device 1 inh inhalation QAM Qty: 60 11RF Rx Instructions: rinse and spit atorvastatin 80 mg tablet 80 mg PO HS Qty: 30 5RF albuterol sulfate 1.25 mg/3 mL solution for nebulization 1.25 mg inhalation Q6H PRN (Reason: shortness of breath or wheezing) Qty: 360 2RF Brilinta 90 mg tablet 90 mg PO Q12HR Qty: 180 2RF Ohtuvayre 3 mg/2.5 mL suspension for nebulization 2.5 ml inhalation QAM AND QPM Qty: 150 5RF Rx Instructions: This will replace Daliresp (roflumilast) carvedilol 6.25 mg tablet See Rx Instructions .ROUTE .COMPLEX Qty: 60 5RF Dose Instruction: TAKE 1 TABLET BY MOUTH EVERY 12 HOURS Rx Instructions: TAKE 1 TABLET BY MOUTH EVERY 12 HOURS Follow-up/Referrals: Dieudonne Posada MD [Primary Care Provider] - Time of Disposition: 15:43
[2024-12-13] MEDS: AZITHROMYCIN 500 MG/NS 250 ML 500 MG/250 ML BAG 250 MG IVPB (16:39)
--- NOTE | 2024-12-13 16:41 | P.HP_ITS ---
H&P: HPI History of Present Illness Date/Time: 12/13/24 16:41 Chief Complaint: Shortness of Breath Narrative: 64 y/o M with PMH of coronary artery disease status post stents to the LAD in June 2023, ischemic cardiomyopathy with improved ejection fraction to 60 to 65% in Mar and October, hypertension, chronic obstructive pulmonary disease (GOLD Grade 3 Group E), hyperlipidemia, and gastroesophageal reflux disease presents here with shortness of breath. The patient presents here from home via EMS on 12/13 for further evaluation of shortness of breath. The patient reports onset of shortness of breath intermittently, this will be his third time being admitted for SOB. He reports onset of shortness of breath for this admission today while he was in the shower. It is accompanied by productive cough yielding blood tinged/pink or red sputum. States this is brighter than it has been previously and he feels it is coming from higher in his throat. He endorses alcohol use - 6 days per week and a 5L wine box lasts him 4 nights. He denies any withdrawal symptoms with cessation. SOB is also accompanied by feeling hot but not feverish. He denies chills, body aches, chest pain, nausea, vomiting or diarrhea. The patient has a respiratory history significant for COPD (GOLD Grade 3 Group E). He follows with pulmonology outpatient, last visit on 11/20/2024 with Anika NAILS. Patient does not smoke tobacco, uses a vaporizer (not a vape) that is the least invasive way according to the patient to smoked marijuana. Patient reports he sat next to someone yesterday that smoked and he tried to lean away from it, no other exposures or triggers precipitating SOB. Initial VS at presentation: 97.9? F, HR 103, R 32, 158/100, and 100% on non- rebreather. Now on 4L nasal cannula at 96% ED workup showed: WBC 11.9, no anemia, normal coags, elevated D-dimer, initial ABG showed a CO2 of 46.7/O2 64.1/O2 saturation 91.5% on 3L nasal cannula, no significant electrolyte derangements, creatinine 0.83 and GFR >60, glucose 211, BNP 199, initial troponin negative. CXR showed findings within the bilateral lower lobes for which infectious etiologies suspected. Chest CTA showed no CT evidence of acute PE, pulmonary findings most consistent with moderate pulmonary edema overlying severe emphysematous changes, scattered inflammatory infectious foci. Review of Systems Review of Systems: All systems reviewed & are unremarkable except as noted in HPI and below [facility] Past Medical History Medical History Asthma Bilateral cataracts Non-STEMI (non-ST elevated myocardial infarction) Preop cardiovascular exam CAD (coronary artery disease) Pneumonia Emphysema lung Hypertension Chronic hyponatremia Thoracic compression fracture Gastroesophageal reflux disease Ischemic cardiomyopathy EF is low as 30 to 35% in June 2023; improved to 60 to 65% on echo obtained in August 2023. Osteoporosis COPD with chronic bronchitis and emphysema Heavy alcohol use Anxiety and depression has previously undergone ECT treatments Hypercholesteremia Former smoker Surgical History Surgical History Hx of cataract surgery History of coronary artery stent placement (06/2023) x3 to the LAD. History of tonsillectomy Family History Family History Father Aneurysm Grandparent Black lung Social History Social History Social History: Surrogate medical decision maker: Valeriano Laguna, sibling. Code status: Full code. Smoking packs per day: 1.5 Smoking cigarettes per day: 30.0 Years smoked: 42 Smoking pack-years: 63.00 Smoking status: Former smoker Second hand tobacco smoke exposure: No Smoking end date: 12/10/19 Alcohol intake: current Drinks per week: 6 Alcohol use details: wine Substance use: current Substance use type: marijuana Last use: Sunday Do You Feel Safe in your Home?: Yes Lack of Transportation: No Lack of Food: Never True Current Housing: I Have Housing Concerned About Future Housing: No Difficulty Paying Gas/Electric Bills: No Difficulty Paying for Meds: No Currently Unemployed: No Education: High School Diploma/GED Difficulty w/ Childcare or Family Care: No Living arrangements: alone Additional living arrangements comments: Lives alone in [place]. 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 Spiritual care concerns: No Meds Home Medications and Allergies Home Medications ?Medication ?Instructions ?Recorded ?Confirmed ?Type trazodone 100 mg tablet 100 mg PO HS 11/10/22 12/13/24 History aspirin 81 mg tablet,delayed 81 mg PO DAILY@0800 #90 tabs 06/19/23 12/13/24 Rx release calcium 100 mg capsule 100 mg PO DAILY 06/19/23 12/13/24 History losartan 25 mg tablet 12.5 mg (1/2 x 25 mg) PO DAILY #90 11/21/23 12/13/24 Rx tabs Trelegy Ellipta 100 mcg-62.5 1 inh inhalation QAM #60 ea 03/06/24 12/13/24 Rx mcg-25 mcg powder for inhalation (vkuhaisokvv-vlzodpljj-wozhsfpa) multivitamin (Daily Multi-Vitamin 1 tablet PO DAILY 03/13/24 12/13/24 History tablet) atorvastatin 80 mg tablet 80 mg PO HS #30 tabs 06/18/24 12/13/24 Rx albuterol sulfate 1.25 mg/3 mL 1.25 mg (3 mL) inhalation Q6H PRN 07/31/24 12/13/24 Rx solution for nebulization shortness of breath or wheezing #360 mL alendronate 70 mg tablet 70 mg PO WEEKLY #12 tabs 09/08/24 12/13/24 Rx aripiprazole 2 mg tablet 2 mg PO DAILY 09/08/24 12/13/24 History omeprazole 20 mg capsule,delayed 20 mg PO DAILY #90 caps 09/08/24 12/13/24 Rx release vitamin B complex-folic acid 0.4 1 tablet PO DAILY 09/08/24 12/13/24 History mg tablet (B Complex 1 (with folic acid)) ticagrelor 90 mg tablet (Brilinta) 90 mg PO Q12HR #180 tabs 09/24/24 12/13/24 Rx ensifentrine 3 mg/2.5 mL 2.5 ml inhalation QAM AND QPM #150 10/29/24 12/13/24 Rx suspension for nebulization mL (Ohtuvayre) furosemide 20 mg tablet 20 mg PO QAM #30 tabs 11/19/24 12/13/24 Rx carvedilol 6.25 mg tablet See Rx Instructions .Route 11/26/24 12/13/24 Rx .COMPLEX #60 tabs albuterol sulfate 90 mcg/actuation 2 puff inhalation Q6H PRN 12/13/24 12/13/24 History aerosol inhaler shortness of breath or wheezing cholecalciferol (vitamin D3) 125 5,000 unit PO DAILY 12/13/24 12/13/24 History mcg (5,000 unit) capsule Allergies Allergy/AdvReac Type Severity Reaction Status Date / Time No Known Allergies Allergy Verified 12/13/24 18:01 Vital Signs Vital Signs - 24 hr 12/13/24 13:34 12/13/24 13:41 12/13/24 13:45 Temperature 97.9 F Pulse Rate 103 H 110 H Respiratory Rate 32 H 35 H Blood Pressure 158/100 H 140/92 H Pulse Oximetry 100 97 96 Oxygen Delivery Non-Rebreather Mask Nasal Cannula Oxygen Flow Rate 10 4 12/13/24 14:00 12/13/24 14:45 12/13/24 15:13 Temperature Pulse Rate 108 H 103 H 108 H Respiratory Rate 30 H 17 20 Blood Pressure 129/88 119/80 Pulse Oximetry 92 90 Oxygen Delivery Oxygen Flow Rate 12/13/24 15:24 12/13/24 15:30 Temperature 97.9 F Pulse Rate 106 H 96 Respiratory Rate 20 27 H Blood Pressure 118/76 Pulse Oximetry 96 Oxygen Delivery Oxygen Flow Rate Exam Const: General: comfortable and no acute distress Other: , male, nontoxic appearance HENMT: Face/Nose/Sinus: Normal nares present Mouth: Yes moist mucous membranes Eyes: General: appearance normal, both eyes and all related structures Sc karlo: sclerae normal Pupils: Equal, round and reactive pupils present EOM: EOMs intact bilaterally Resp: Effort & Inspection: normal respiratory effort Other: scattered wheezing, faint. bibasilar crackles. NC in place, tolerating well. Cardio: Rate: regular rate Rhythm: regular rhythm Other: S1-S2 present without murmur, rub, ectopy GI: Other: Abdomen soft, nondistended, nontender. Normoactive bowel sounds in all quadrants. Skin: General skin exam: normal color and no rashes or lesions noted Wounds: no wounds Neuro: Speech: normal speech Motor exam (neuro): 5/5 motor strength present throughout Sensory Exam: normal sensation Other: A&O x4 Extrem: General: normal to inspection Psych: Mental Status: mental status grossly normal Affect: normal affect Other: good insight and judgment, pleasant H&P: Results Labs Labs: Short CBC 12/13/24 Range/Units 13:40 WBC 11.9 H (4.5-10.0) K/mm3 Hgb 15.9 (14.0-18.0) g/dL Hct 46.2 (42.0-52.0) % Plt Count 205 (150-375) k/mm3 BMP 12/13/24 13:40 Sodium 138 Potassium 4.8 Chloride 99 Carbon Dioxide 27 BUN 12 Creatinine 0.83 Glucose 211 H Calcium 8.8 Cardiac Enzymes 12/13/24 Range/Units 13:40 Troponin I < 0.012 (0.000-0.034) ng/mL Liver Function 12/13/24 Range/Units 13:40 Total Bilirubin 0.4 (0.2-1.3) mg/dL AST 51 (17-59) U/L ALT 28 (6-50) U/L Alkaline Phosphatase 66 (38-126) U/L Albumin 4.4 (3.5-5.1) g/dL Assessment and Plan Assessment and plan (1) Sepsis: Qualifiers: Acute respiratory failure type: with hypoxia Sepsis acute organ dysfunction status: with acute organ dysfunction Sepsis type: sepsis due to unspecified organism Severe sepsis acute organ dysfunction type: acute respirat ory failure Severe sepsis shock status: without septic shock Qualified Code(s): A41.9 - Sepsis, unspecified organism; R65.20 - Severe sepsis without septic shock; J96.01 - Acute respiratory failure with hypoxia Code(s): A41.9 - Sepsis, unspecified organism Status: Acute Assessment and Plan: - meets SIRS criteria: HR >100, RR >20., +hypoxia, -hypoTN - lactic acid: 1.3 - CTA Concerning for moderate pulmonary edema, giving diuretic. Will hold on fluids at this time. - suspected source: Pneumonia, started on ceftriaxone and azithromycin, see below - blood cultures drawn on 12/13, follow - monitor hemodynamic stability (2) Acute hypoxemic respiratory failure: Code(s): J96.01 - Acute respiratory failure with hypoxia Status: Acute Assessment and Plan: - CXR: Findings within the bilateral lower lobes for which an infectious etiology is suspected. - D-dimer elevated, chest CTA obtained: No CT evidence of acute pulmonary embolus. Pulmonary findings most consistent with moderate pulmonary edema overlying severe emphysematous change. Scattered inflammatory infectious foci. - started on CAP tx, see below - initial ABG reviewed, only showed mild derangements with a CO2 of 46.7, O2 64.1, O2 saturation 91.5% on 3L nasal cannula. - continue supplemental O2 to maintain O2 sat greater than 92%, wean as tolerated - if no improvement, low threshold for consultation to pulmonology (3) Pneumonia: Qualifiers: Laterality: bilateral Lung location: unspecified part of lung Pneumonia type: due to unspecified organism Qualified Code(s): J18.9 - Pneumonia, unspecified organism Code(s): J18.9 - Pneumonia, unspecified organism Status: Acute Assessment and Plan: - Imaging showing scattered inflammatory/infectious foci of the lungs - started on CAP tx: ceftriaxone and azithromycin on 12/13 - MRSA PCR negative on 10/28/2024 - check sputum culture, mycoplasma, pneumococcal, and Legionella - supportive care: Mucinex denita, Tessalon Perles p.r.n., Tylenol p.r.n., DuoNebs denita - continue supplemental oxygen, wean as tolerated (4) COPD with chronic bronchitis and emphysema: Code(s): J44.89 - Other specified chronic obstructive pulmonary disease; J43.9 - Emphysema, unspecified Status: Chronic Assessment and Plan: - Duonebs DENITA - continue home inhalers as appropriate - start steroid course - prednisone 40 mg x5 days, scattered wheezing and sputum production (5) Diastolic dysfunction: Code(s): I51.89 - Other ill-defined heart diseases Status: Chronic Assessment and Plan: - reviewed most recent echo HFpEF with diastolic dysfunction on 10/28/24, see report for full details - BNP 199 - will give Lasix 20 mg IV, monitor blood pressure and response. may need second IV dose -> home dose of Lasix (20 mg PO daily) - monitor I&Os daily weights (6) Hypertension: Qualifiers: Hypertension type: primary hypertension Qualified Code(s): I10 - Essential (primary) hypertension Code(s): I10 - Essential (primary) hypertension Status: Chronic Assessment and Plan: - chronic, currently 118/73 - continue home medications: Coreg, losartan - monitor Plan Diet: heart healthy GI Prophylaxis: not currently indicated DVT Prophylaxis: SCDs IV fluids: none Lines/Tubes: peripheral IV Code Status: DNR Quality VTE Prophylaxis VTE prophylaxis: mechanical ordered Hospitalist [facility] Advance Care Plan I have confirmed that the patient's Advanced Care Plan is present, code status is documented, or surrogate decision maker is listed in patient medical record.: Yes Medication Reconciliation I have utilized all available resources to obtain, update and review the patients current medications (includes all prescriptions, OTC, herbals, cannabis, and nutritional supplements).: Yes
[2024-12-13] MEDS: FUROSEMIDE INJ 40 MG/4 ML VIAL 20 MG IV PUSH (17:24)
--- NOTE | 2024-12-13 18:15 | ADMGEN ---
This patient, Edgar Laguna, was admitted to Medical Room 253-01. Patient/family oriented to hospital policies and general routines including ID bracelet, bed and alarms, visiting hours, pain management, procedures, bathroom and other care routines, personal items, smoking policy, room service/diet, and visiting hours. Information on how to activate the Rapid Response Team has been discussed. Patient/Family are encouraged to report perceived risks to care and to ask questions if they do not understand what they are told or what they should do.
[2024-12-13] MEDS: guaiFENesin 12 HR 600 MG TABCR PO (21:47)
[2024-12-14] VITALS (20 sets, daily range): BP systolic 116–117; BP diastolic 60–77; PULSE 72–728; RESP 16–20; TEMP 36.4–37; O2SAT 94–99
[2024-12-14] MEDS: IPRATROPIUM 0.5 MG/ALBUTEROL SULFATE 2.5 MG AMPUL.NEB 3 ML INHALATION ×4 (02:00→20:02)
[2024-12-14 05:21] LABS: Hematocrit 36.8 % (42.0-52.0); Hemoglobin 12.9 g/dL (14.0-18.0); Immature Granulocyte Percent A 0.3 % (0-0.5); Lymphocytes Absolute Auto 2.01 K/mm3 (0.9-3.2); Mean Corpuscular HGB Conc 35.1 g/dl (32-36); Mean Corpuscular Hemoglobin 32.7 pg (26-34); Mean Corpuscular Volume 93.4 fl (80-100); Nucleated Red Blood Cells Absolute Auto 0.000 K/mm3 (0.0-0.012); Nucleated Red Blood Cells Perc 0.0 % (0.0-0.2); Platelet Count Result 178 k/mm3 (150-375); Red Blood Count 3.94 M/mm3 (4.6-6.20); White Blood Count 9.5 K/mm3 (4.5-10.0)
[2024-12-14 05:37] LABS: Alanine Aminotransferase 21 U/L (6-50); Albumin Level 3.8 g/dL (3.5-5.1); Alkaline Phosphatase 63 U/L (38-126); Anion Gap 6 mmol/L (4-12); Aspartate Amino Transferase 28 U/L (17-59); Bilirubin,Total 0.7 mg/dL (0.2-1.3); Blood Urea Nitrogen 10 mg/dL (9-20); Calcium 8.7 mg/dL (8.4-10.2); Carbon Dioxide 29 mmol/L (22-30); Chloride 99 mmol/L (98-107); Estimated CRCL calculation 103 ml/min; Estimated Glomerular Filt Rate > 60; Glucose 94 mg/dL (65-110); Potassium 3.2 mmol/L (3.4-5.0); Sodium 134 mmol/L (137-145); Total Protein 6.4 g/dL (6.3-8.2)
[2024-12-14] MEDS: TICAGRELOR 90 MG TABLET PO ×2 (09:30→20:24)
[2024-12-14] MEDS: FUROSEMIDE INJ 40 MG/4 ML VIAL 20 MG IV PUSH (09:33)
--- NOTE | 2024-12-14 12:03 | P.PNIM_ITS ---
Progress Note: A&P Assessment and Plan (1) Sepsis: Qualifiers: Sepsis type: sepsis due to unspecified organism Sepsis acute organ dysfunction status: with acute organ dysfunction Severe sepsis acute organ dysfunction type: acute respiratory failure Acute respiratory failure type: with hypoxia Severe sepsis shock status: without septic shock Qualified Code(s): A41.9 - Sepsis, unspecified organism; R65.20 - Severe sepsis without septic shock; J96.01 - Acute respiratory failure with hypoxia Code(s): A41.9 - Sepsis, unspecified organism Status: Acute Assessment and Plan: - No longer meets SIRS criteria but continues to require 4L supplemental oxygen. - CTA Concerning for moderate pulmonary edema, giving diuretic. - Continue to hold IVF in setting of concern for Pulmonary edema. - suspected source: Pneumonia, started on ceftriaxone and azithromycin, see below - blood cultures pending. - monitor hemodynamic stability (2) Acute hypoxemic respiratory failure: Code(s): J96.01 - Acute respiratory failure with hypoxia Status: Acute Assessment and Plan: - CXR: Findings within the bilateral lower lobes for which an infectious etiology is suspected. - D-dimer elevated, chest CTA obtained without any acute PE or other abnormal fi ndings. - started on CAP tx, see below - continue supplemental O2 to maintain O2 sat greater than 92%, wean as tolerated - Attempted to wean oxygen to 2L, but he is now back on 4L. Will consult Pulmon ology as he is a pt of Dr. Hernandez. (3) Pneumonia: Qualifiers: Laterality: bilateral Lung location: unspecified part of lung Pneumonia type: due to unspecified organism Qualified Code(s): J18.9 - Pneumonia, unspecified organism Code(s): J18.9 - Pneumonia, unspecified organism Status: Acute Assessment and Plan: - Imaging showing scattered inflammatory/infectious foci of the lungs - started on CAP tx: ceftriaxone and azithromycin on 12/13 - MRSA PCR negative on 10/28/2024 - check sputum culture, mycoplasma, pneumococcal, and Legionella - supportive care: Mucinex denita, Tessalon Perles p.r.n., Tylenol p.r.n., DuoNebs denita - continue supplemental oxygen, wean as tolerated, baseline is 2L at HS only at home. (4) COPD with chronic bronchitis and emphysema: Code(s): J44.89 - Other specified chronic obstructive pulmonary disease; J43.9 - Emphysema, unspecified Status: [facility] continue [facility] inhalers as appropriate - Continue steroids. (5) Diastolic dysfunction: Code(s): I51.89 - Other ill-defined heart diseases Status: Chronic Assessment and Plan: - reviewed most recent echo HFpEF with diastolic dysfunction on 10/28/24, see re port for full details - BNP 199 - Appears euvolemic. - monitor I&Os daily weights (6) Hypertension: Qualifiers: Hypertension type: primary hypertension Qualified Code(s): I10 - Essential (primary) hypertension Code(s): I10 - Essential (primary) hypertension Status: Chronic Assessment and Plan: - continue home medications: Coreg, losartan - monitor Plan Diet: heart healthy GI Prophylaxis: not currently indicated DVT Prophylaxis: SCDs IV fluids: none Lines/Tubes: peripheral IV Code Status: DNR Time Spent With Patient Time with patient: 15 - 25 minutes Subjective Date/time seen: 12/14/24 12:03 Interval history: This pt was examined at the bedside today in interval assessment. He reports that he is feeling slightly better than yesterday, but still remains overall feeling unwell. He has had his oxygen decreased from 5L NC to 4L NC. He remains on Azithromycin and Rocephin for potential PNA. He has not been able to give a sputum sample as of yet. Pt is convinced that he has mold in his bedroom at home and that is what caused all of his respiratory symptoms. He is a pt of Dr. Jaylen livingston with Pulmonology, so we will consult Pulm to weigh in on pt's treatment during his hospitalization. Review of Systems Review of Systems: All systems reviewed & are unremarkable except as noted in HPI and below Exam Const: General: comfortable and no acute distress Other: Sitting up in bed in no acute distress at this time. HENMT: Face/Nose/Sinus: Normal nares present Mouth: Yes moist mucous membranes Eyes: General: appearance normal, both eyes and all related structures Neck: Neck: supple and no JVD Lymphatic: lymphadenopathy not noted Resp: Effort & Inspection: normal respiratory effort Auscultation: diminished lung sounds bilateral (bases) Cardio: Rate: regular rate Rhythm: regular rhythm Heart sounds: no gallops, no murmurs and no rubs GI: GI Palp: Yes Soft to palpation and No Tenderness to palpation present (GI) Auscultation: normal bowel sounds Skin: General skin exam: normal color, no rashes or lesions noted and no erythema Wounds: no wounds Neuro: Speech: normal speech Motor exam (neuro): 5/5 motor strength present throughout and Normal motor muscle tone present throughout Sensory Exam: normal sensation Extrem: Other: FROM actively without deficit Psych: Mental Status: mental status grossly normal Affect: normal affect Objective Data Vital Signs Vital Signs: Vital Signs - 24 hr 12/13/24 13:34 12/13/24 13:41 12/13/24 13:45 Temperature 97.9 F Pulse Rate 103 H 110 H Respiratory Rate 32 H 35 H Blood Pressure 158/100 H 140/92 H Pulse Oximetry 100 97 96 Oxygen Delivery Non-Rebreather Mask Nasal Cannula Oxygen Flow Rate 10 4 12/13/24 14:00 12/13/24 14:45 12/13/24 15:13 Temperature Pulse Rate 108 H 103 H 108 H Respiratory Rate 30 H 17 20 Blood Pressure 129/88 119/80 Pulse Oximetry 92 90 Oxygen Delivery Oxygen Flow Rate 12/13/24 15:24 12/13/24 15:30 12/13/24 16:15 Temperature 97.9 F 97.8 F Pulse Rate 106 H 96 101 H Respiratory Rate 20 27 H 22 H Blood Pressure 118/76 113/83 Pulse Oximetry 96 95 Oxygen Delivery Oxygen Flow Rate 12/13/24 16:47 12/13/24 17:46 12/13/24 19:48 Temperature 99.3 F Pulse Rate 96 96 96 Respiratory Rate 26 H 20 Blood Pressure 118/73 110/67 Pulse Oximetry 95 95 Oxygen Delivery Oxygen Flow Rate 12/13/24 20:00 12/13/24 20:00 12/13/24 20:23 Temperature Pulse Rate 102 H 87 Respiratory Rate 20 Blood Pressure Pulse Oximetry 95 Oxygen Delivery Nasal Cannula Oxygen Flow Rate 3 12/13/24 20:24 12/13/24 20:31 12/14/24 00:00 Temperature Pulse Rate 89 82 Respiratory Rate 20 Blood Pressure Pulse Oximetry 95 Oxygen Delivery Nasal Cannula Oxygen Flow Rate 4 12/14/24 02:00 12/14/24 02:09 12/14/24 04:00 Temperature Pulse Rate 80 86 75 Respiratory Rate 20 20 Blood Pressure Pulse Oximetry Oxygen Delivery Oxygen Flow Rate 12/14/24 06:00 12/14/24 09:03 12/14/24 09:03 Temperature 98.6 F Pulse Rate 78 74 Respiratory Rate 20 20 Blood Pressure 116/60 Pulse Oximetry 96 99 Oxygen Delivery Nasal Cannula Oxygen Flow Rate 5 12/14/24 09:19 12/14/24 09:30 Temperature Pulse Rate 75 75 Respiratory Rate 20 Blood Pressure Pulse Oximetry Oxygen Delivery Oxygen Flow Rate Intake/Output Intake/Output: Intake & Output 12/11/24 12/12/24 12/13/24 12/14/24 23:59 23:59 23:59 23:59 Intake Total 880 620 Output Total 1200 300 Balance -320 320 Meds/Results Medications: Active Medications Generic Name Dose Route Start Last Admin Trade Name Freq PRN Reason Stop Dose Admin Acetaminophen 650 mg 12/13/24 15:56 Acetaminophen 325 Mg Tablet PO Q4H PRN Mild Pain (1-3) or Fever Albuterol/Ipratropium 3 ml 12/13/24 20:00 12/14/24 09:03 Ipratropium 0.5 Mg/Albuterol Sulfate 2.5 Mg Ampul.Neb 3 Ml INHALATION 3 ml Q6HRT [facility] Administration Alendronate Sodium 70 mg 12/17/24 06:30 Alendronate Sodium 70 Mg Tablet PO WEEKLY@0630 [facility] Aripiprazole 2 mg 12/14/24 17:00 Aripiprazole 2 Mg Tablet PO DAILY@1700 [facility] Aspirin 81 mg 12/14/24 08:00 Aspirin 81 Mg Enteric Tablet PO DAILY@0800 [facility] Atorvastatin Calcium 80 mg 12/14/24 21:00 Atorvastatin 40 Mg Tablet PO HS [facility] Benzonatate 100 mg 12/13/24 17:11 Benzonatate 100 Mg Capsule PO TID PRN Cough Calcium Carbonate 250 mg 12/14/24 09:00 Calcium Carbonate (Oscal) 250 Mg Tablet PO QAM [facility] Carvedilol 6.25 mg 12/14/24 09:00 12/14/24 09:30 Carvedilol 6.25 Mg Tablet PO 6.25 mg Q12HR [facility] Administration Fluticasone/Umeclidinium/Vilanterol 1 puff 12/14/24 08:00 Fluticasone/Umeclidin/Vilanter 100-62.5-25 Mcg Ellipta INHALATION DAILYRT [facility] Furosemide 20 mg 12/14/24 17:00 Furosemide 20 Mg Tablet PO DAILY@1700 [facility] Guaifenesin 600 mg 12/13/24 21:00 12/13/24 21:47 Guaifenesin 12 Hr 600 Mg Tabcr PO 600 mg Q12HR [facility] Administration Ceftriaxone Sodium 1 gm in 50 mls @ 100 mls/hr 12/14/24 17:00 Rocephin 1 Gm/Ns 50 Ml IVPB Q24H [facility] Azithromycin 500 mg in 250 mls @ 250 mls/hr 12/14/24 17:00 Zithromax IVPB Q24H [facility] Losartan Potassium 12.5 mg 12/14/24 17:00 Losartan Potassium 12.5 Mg Tablet PO DAILY@1700 [facility] Miscellaneous Information 1 each 12/13/24 00:01 Ensifentrine [Ohtuvayre] 3 Mg/2.5 Ml Suspension For Nebulization) Is Nonformulary, Can Pat XX 01/12/25 00:00 CLARIFY [facility] Multivitamins Therapeutic 1 tablet 12/14/24 17:00 Multivitamins Therapeutic Tab (*Bkc) PO DAILY@1700 [facility] Non-Formulary Medication 2.5 ml 12/13/24 23:45 Ensifentrine [Ohtuvayre] INHALATION 01/12/25 23:44 QAM AND QPM [facility] Pantoprazole Sodium 40 mg 12/14/24 17:00 Pantoprazole 40 Mg Tablet PO DAILY@1700 [facility] Prednisone 40 mg 12/14/24 08:00 Prednisone 20 Mg Tablet PO 12/19/24 07:59 DAILY@0800 [facility] Ticagrelor 90 mg 12/14/24 09:00 12/14/24 09:30 Ticagrelor 90 Mg Tablet PO 90 mg Q12HR [facility] Administration Trazodone HCl 100 mg 12/13/24 23:50 12/13/24 23:58 Trazodone Hcl 50 Mg Tablet PO 100 mg HS [facility] Administration Vitamin B Complex/Folic Acid 1 cap 12/14/24 09:00 Vitamin B Cmplx/Vit C/Folic Ac 1 Capsule PO QAM [facility] Vitamin D 125 mcg 12/14/24 09:00 Cholecalciferol (Vitamin D3) 125 Mcg (5,000 Units) Tablet PO DAILY [facility] Radiology Results: ITS Impressions Chest X-Ray 12/13/24 14:04 IMPRESSION: Findings within the bilateral lower lobes for which an infectious etiology is suspected. Chest CTA 07/05/25 15:21 IMPRESSION: No CT evidence of acute pulmonary embolus. Pulmonary findings most consistent with moderate pulmonary edema overlying severe emphysematous change. Scattered inflammatory infectious foci. Labs Labs: Laboratory Results - last 24 hr 12/13/24 12/13/24 12/14/24 13:40 13:49 04:58 WBC 11.9 H 9.5 RBC 4.95 3.94 L Hgb 15.9 12.9 L D Hct 46.2 36.8 L MCV 93.3 93.4 MCH 32.1 32.7 MCHC 34.4 35.1 RDW 12.8 12.9 Plt Count 205 178 MPV 8.0 8.3 Immature Gran % (Auto) 0.5 0.3 Neut % (Auto) 86.2 H 66.3 Lymph % (Auto) 6.2 L 21.1 [place] % (Auto) 5.6 10.1 H Eos % (Auto) 1.2 1.7 Baso % (Auto) 0.3 0.5 Lymph # (Auto) 0.74 L 2.01 [place] # (Auto) 0.7 H 1.0 H Eos # (Auto) 0.1 0.2 Baso # (Auto) 0.0 0.1 Abs Immat Gran (auto) 0.06 H 0.03 Absolute Neuts (auto) 10.2 H 6.3 Absolute Nucleated RBC 0.000 0.000 Nucleated RBC % 0.0 0.0 PT 12.4 INR 0.9 APTT 30.0 D-Dimer 1.45 H Puncture Site Right radial ABG pH 7.357 ABG pCO2 46.7 H ABG pO2 64.1 L ABG PO2/FiO2 Ratio 2.00 ABG HCO3 25.6 ABG O2 Saturation 91.5 L ABG O2 Content 21.1 ABG Base Excess -0.4 A-a Gradient 109.4 Oxyhemoglobin 90.4 Total Hemoglobin 16.6 O2 Delivery Device Nasal cannula O2 Liters/Min 3.0 FiO2 32 Sodium 138 134 L Potassium 4.8 3.2 L Chloride 99 99 Carbon Dioxide 27 29 Anion Gap 12 6 BUN 12 10 Creatinine 0.83 0.68 L Estim Creat Clear Calc 86 103 Estimated GFR > 60 > 60 Glucose 211 H 94 Lactic Acid 1.3 Calcium 8.8 8.7 Total Bilirubin 0.4 0.7 AST 51 28 ALT 28 21 Alkaline Phosphatase 66 63 Troponin I < 0.012 NT-Pro-B Natriuret Pep 199 H Total Protein 7.6 6.4 Albumin 4.4 3.8 Quality VTE Prophylaxis VTE prophylaxis: mechanical ordered
[2024-12-14] MEDS: FLUTICASONE/UMECLIDIN/VILANTER 100-62.5-25 MCG ELLIPTA 1 PUFF INHALATION (13:49)
[2024-12-14] MEDS: ASPIRIN 81 MG ENTERIC TABLET PO (16:14)
[2024-12-14] MEDS: VITAMIN B CMPLX/VIT C/FOLIC AC 1 CAPSULE 1 CAP PO (16:15)
[2024-12-14] MEDS: guaiFENesin 12 HR 600 MG TABCR PO ×2 (16:15→20:25)
[2024-12-14] MEDS: LOSARTAN POTASSIUM 12.5 MG TABLET PO (16:15)
[2024-12-14] MEDS: MULTIVITAMINS THERAPEUTIC TAB (*BKC) 1 TABLET PO (16:15)
[2024-12-14] MEDS: CHOLECALCIFEROL (VITAMIN D3) 125 MCG (5,000 UNITS) TABLET PO (16:15)
[2024-12-14] MEDS: CALCIUM CARBONATE (OSCAL) 250 MG TABLET PO (16:15)
[2024-12-14] MEDS: FUROSEMIDE 20 MG TABLET PO (16:15)
[2024-12-14] MEDS: PANTOPRAZOLE 40 MG TABLET PO (16:15)
[2024-12-14] MEDS: AZITHROMYCIN 500 MG/NS 250 ML 500 MG/250 ML BAG 250 MG IVPB (17:29)
[2024-12-14] MEDS: ATORVASTATIN 40 MG TABLET 80 MG PO (20:24)
[2024-12-15] VITALS (16 sets, daily range): BP systolic 128; BP diastolic 60–76; PULSE 62–117; RESP 16–18; TEMP 36.5; O2SAT 92–98
--- NOTE | 2024-12-15 02:06 | PC.NURSE ---
Patient was offered scheduled trazodone at 2100 on 12/14/24 and requested to wait until his 0200 breathing treatment on 12/15/24. Patient called RN at [phone] to request trazodone because they should be here anytime to do my treatment and I will take it then. rug cleaner hand Fadia told the patient that we were unable to leave medication at the bedside and that event staff was to witness patient taking all medications and patient was aggravated and refused administration of trazodone at this time and stated I have been here several times over the years and this has never happened to me before; You have to take this medicine within a certain window or if just won't work; this is ridiculous that you won't just leave it here so I can take it when I'm ready. Patient was instructed to call the nurse's station when he was ready for administration pending time of breathing treatment.
[2024-12-15] MEDS: IPRATROPIUM 0.5 MG/ALBUTEROL SULFATE 2.5 MG AMPUL.NEB 3 ML INHALATION ×3 (02:31→14:06)
[2024-12-15 04:57] LABS: Hematocrit 38.2 % (42.0-52.0); Hemoglobin 12.9 g/dL (14.0-18.0); Immature Granulocyte Percent A 0.6 % (0-0.5); Lymphocytes Absolute Auto 1.42 K/mm3 (0.9-3.2); Mean Corpuscular HGB Conc 33.8 g/dl (32-36); Mean Corpuscular Hemoglobin 32.3 pg (26-34); Mean Corpuscular Volume 95.5 fl (80-100); Nucleated Red Blood Cells Absolute Auto 0.000 K/mm3 (0.0-0.012); Nucleated Red Blood Cells Perc 0.0 % (0.0-0.2); Platelet Count Result 198 k/mm3 (150-375); Red Blood Count 4.00 M/mm3 (4.6-6.20); White Blood Count 6.4 K/mm3 (4.5-10.0)
[2024-12-15 05:13] LABS: Alanine Aminotransferase 21 U/L (6-50); Albumin Level 3.9 g/dL (3.5-5.1); Alkaline Phosphatase 61 U/L (38-126); Anion Gap 6 mmol/L (4-12); Aspartate Amino Transferase 28 U/L (17-59); Bilirubin,Total 0.8 mg/dL (0.2-1.3); Blood Urea Nitrogen 10 mg/dL (9-20); Calcium 9.1 mg/dL (8.4-10.2); Carbon Dioxide 30 mmol/L (22-30); Chloride 99 mmol/L (98-107); Estimated CRCL calculation 100 ml/min; Estimated Glomerular Filt Rate > 60; Glucose 116 mg/dL (65-110); Potassium 3.5 mmol/L (3.4-5.0); Sodium 135 mmol/L (137-145); Total Protein 6.7 g/dL (6.3-8.2)
--- NOTE | 2024-12-15 07:41 | PM.IMPN ---
Progress Note: A&P Assessment and Plan (1) Sepsis: Qualifiers: Acute respiratory failure type: with hypoxia Sepsis acute organ dysfunction status: with acute organ dysfunction Sepsis type: sepsis due to unspecified organism Severe sepsis acute organ dysfunction type: acute respiratory failure Severe sepsis shock status: without septic shock Qualified Code(s): A41.9 - Sepsis, unspecified organism; R65.20 - Severe sepsis without septic shock; J96.01 - Acute respiratory failure with hypoxia Code(s): A41.9 - Sepsis, unspecified organism Status: Acute Assessment and Plan: - No longer meets SIRS criteria but continues to require 4L supplemental oxygen. - CTA Concerning for moderate pulmonary edema, giving diuretic. - Continue to hold IVF in setting of concern for Pulmonary edema. - suspected source: Pneumonia, started on ceftriaxone and azithromycin, see below - blood cultures pending. - monitor hemodynamic stability (2) Acute hypoxemic respiratory failure: Code(s): J96.01 - Acute respiratory failure with hypoxia Status: Acute Assessment and Plan: Hx COPD D-dimer elevated, 1.45 WBC 11.9 >6.4 Attempted to wean oxygen to 2L, but he is now back on 4L. IMAGING 12/13 CXR: Findings within the bilateral lower lobes for which an infectious etiology is suspected. 12/13 CTA: No CT evidence of acute pulmonary embolus. Pulmonary findings most consistent with moderate pulmonary edema overlying severe emphysematous change. Scattered inflammatory infectious foci. PLAN --Treating possible community acquired pneumonia, atypical vs bacterial --Treatment of COPD as noted - continue supplemental O2 to maintain O2 sat greater than 92%, wean as tolerated - Pulmonology consulted. Pt of Dr. Donaldson. (3) Pneumonia: Qualifiers: Laterality: bilateral Lung location: unspecified part of lung Pneumonia type: due to unspecified organism Qualified Code(s): J18.9 - Pneumonia, unspecified organism Code(s): J18.9 - Pneumonia, unspecified organism Status: Acute Assessment and Plan: - Imaging showing scattered inflammatory/infectious foci of the lungs - started on CAP tx: ceftriaxone and azithromycin on 12/13 - MRSA PCR negative on 10/28/2024 - check sputum culture, mycoplasma, pneumococcal, and Legionella - supportive care: Mucinex denita, Tessalon Perles p.r.n., Tylenol p.r.n., DuoNebs denita - continue supplemental oxygen, wean as tolerated, baseline is 2L at HS only at home. (4) COPD with chronic bronchitis and emphysema: Code(s): J44.89 - Other specified chronic obstructive pulmonary disease; J43.9 - Emphysema, unspecified Status: [facility] continue home [facility]ers as appropriate - Continue steroids. (5) Diastolic dysfunction: Code(s): I51.89 - Other ill-defined heart diseases Status: Chronic Assessment and Plan: - reviewed most recent echo HFpEF with diastolic dysfunction on 10/28/24, normal LVEL, moderate Mitral valve regurg, see report for full details - BNP 199 - Appears euvolemic. - monitor I&Os daily weights (6) Hypertension: Qualifiers: Hypertension type: primary hypertension Qualified Code(s): I10 - Essential (primary) hypertension Code(s): I10 - Essential (primary) hypertension Status: Chronic Assessment and Plan: Home meds: Carvedilol 6.25 BID, Losartan 25 daily, furosemide 20 daily - continue home medications Plan Diet: heart healthy GI Prophylaxis: not currently indicated DVT Prophylaxis: SCDs IV fluids: none Lines/Tubes: peripheral IV Code Status: DNR Subjective Date/time seen: 12/15/24 07:41 Interval history: Weaning O2 5>4L>Off Exam Narrative: scattered wheezing, faint. bibasilar crackles. NC in place, tolerating well. Objective Data Vital Signs Vital Signs: Vital Signs - 24 hr 12/14/24 08:00 12/14/24 08:00 12/14/24 09:03 Temperature Pulse Rate 102 H 72 Respiratory Rate 20 Blood Pressure Pulse Oximetry 99 99 Oxygen Delivery Nasal Cannula Nasal Cannula Oxygen Flow Rate 4 5 Fraction of Inspired Oxygen 12/14/24 09:03 12/14/24 09:19 12/14/24 09:30 Temperature Pulse Rate 74 75 75 Respiratory Rate 20 20 Blood Pressure Pulse Oximetry Oxygen Delivery Oxygen Flow Rate Fraction of Inspired Oxygen 12/14/24 12:00 12/14/24 13:50 12/14/24 13:50 Temperature Pulse Rate 728 H 80 Respiratory Rate 20 Blood Pressure Pulse Oximetry 98 Oxygen Delivery Nasal Cannula Oxygen Flow Rate 2 Fraction of Inspired Oxygen 28 12/14/24 13:57 12/14/24 14:00 12/14/24 16:00 Temperature 97.5 F L Pulse Rate 78 81 83 Respiratory Rate 20 18 Blood Pressure 117/77 Pulse Oximetry 96 Oxygen Delivery Oxygen Flow Rate Fraction of Inspired Oxygen 12/14/24 20:00 12/14/24 20:00 12/14/24 20:02 Temperature Pulse Rate 94 81 Respiratory Rate 18 Blood Pressure Pulse Oximetry 96 Oxygen Delivery Nasal Cannula Oxygen Flow Rate 4 Fraction of Inspired Oxygen 12/14/24 20:11 12/14/24 20:15 12/14/24 20:24 Temperature Pulse Rate 81 96 Respiratory Rate 18 Blood Pressure Pulse Oximetry 98 Oxygen Delivery Nasal Cannula Oxygen Flow Rate 2 Fraction of Inspired Oxygen 28 12/14/24 21:24 12/15/24 00:00 12/15/24 02:31 Temperature 97.7 F Pulse Rate 96 80 81 Respiratory Rate 16 18 Blood Pressure 116/69 Pulse Oximetry 94 Oxygen Delivery Oxygen Flow Rate Fraction of Inspired Oxygen 12/15/24 02:39 12/15/24 04:00 12/15/24 06:00 Temperature 97.7 F Pulse Rate 81 86 62 Respiratory Rate 18 16 Blood Pressure 128/60 Pulse Oximetry 96 Oxygen Delivery Oxygen Flow Rate Fraction of Inspired Oxygen Intake/Output Intake/Output: Intake & Output 12/12/24 12/13/24 12/14/24 12/15/24 23:59 23:59 23:59 23:59 Intake Total 880 910 400 Output Total 1200 300 400 Balance -320 610 0 Meds/Results Medications: Active Medications Generic Name Dose Route Start Last Admin Trade Name Freq PRN Reason Stop Dose Admin Acetaminophen 650 mg 12/13/24 15:56 Acetaminophen 325 Mg Tablet PO Q4H PRN Mild Pain (1-3) or Fever Albuterol/Ipratropium 3 ml 12/13/24 20:00 12/15/24 02:31 Ipratropium 0.5 Mg/Albuterol Sulfate 2.5 Mg Ampul.Neb 3 Ml INHALATION 3 ml Q6HRT [facility] Administration Alendronate Sodium 70 mg 12/17/24 06:30 Alendronate Sodium 70 Mg Tablet PO WEEKLY@0630 [facility] Aripiprazole 2 mg 12/14/24 17:00 12/14/24 16:15 Aripiprazole 2 Mg Tablet PO 2 mg DAILY@1700 [facility] Administration Aspirin 81 mg 12/14/24 08:00 12/14/24 16:14 Aspirin 81 Mg Enteric Tablet PO 81 mg DAILY@0800 [facility] Administration Atorvastatin Calcium 80 mg 12/14/24 21:00 12/14/24 20:24 Atorvastatin 40 Mg Tablet PO 80 mg HS [facility] Administration Benzonatate 100 mg 12/13/24 17:11 Benzonatate 100 Mg Capsule PO TID PRN Cough Calcium Carbonate 250 mg 12/14/24 09:00 12/14/24 16:15 Calcium Carbonate (Oscal) 250 Mg Tablet PO 250 mg QAM [facility] Administration Carvedilol 6.25 mg 12/14/24 09:00 12/14/24 20:24 Carvedilol 6.25 Mg Tablet PO 6.25 mg Q12HR [facility] Administration Fluticasone/Umeclidinium/Vilanterol 1 puff 12/14/24 08:00 12/14/24 13:49 Fluticasone/Umeclidin/Vilanter 100-62.5-25 Mcg Ellipta INHALATION 1 puff DAILYRT [facility] Administration Furosemide 20 mg 12/14/24 17:00 12/14/24 16:15 Furosemide 20 Mg Tablet PO 20 mg DAILY@1700 [facility] Administration Guaifenesin 600 mg 12/13/24 21:00 12/14/24 20:25 Guaifenesin 12 Hr 600 Mg Tabcr PO 600 mg Q12HR [facility] Administration Ceftriaxone Sodium 1 gm in 50 mls @ 100 mls/hr 12/14/24 17:00 12/14/24 16:45 Rocephin 1 Gm/Ns 50 Ml IVPB Infused Q24H [facility] Infusion Azithromycin 500 mg in 250 mls @ 250 mls/hr 12/14/24 17:00 12/14/24 17:29 Zithromax IVPB 250 mls/hr Q24H [facility] Administration Losartan Potassium 12.5 mg 12/14/24 17:00 12/14/24 16:15 Losartan Potassium 12.5 Mg Tablet PO 12.5 mg DAILY@1700 [facility] Administration Miscellaneous Information 1 each 12/13/24 00:01 Ensifentrine [Ohtuvayre] 3 Mg/2.5 Ml Suspension For Nebulization) Is Nonformulary, Can Pat XX 01/12/25 00:00 CLARIFY [facility] Multivitamins Therapeutic 1 tablet 12/14/24 17:00 12/14/24 16:15 Multivitamins Therapeutic Tab (*Bkc) PO 1 tablet DAILY@1700 [facility] Administration Non-Formulary Medication 2.5 ml 12/13/24 23:45 Ensifentrine [Ohtuvayre] INHALATION 01/12/25 23:44 QAM AND QPM [facility] Pantoprazole Sodium 40 mg 12/14/24 17:00 12/14/24 16:15 Pantoprazole 40 Mg Tablet PO 40 mg DAILY@1700 [facility] Administration Prednisone 40 mg 12/14/24 08:00 12/14/24 12:10 Prednisone 20 Mg Tablet PO 12/19/24 07:59 40 mg DAILY@0800 [facility] Administration Ticagrelor 90 mg 12/14/24 09:00 12/14/24 20:24 Ticagrelor 90 Mg Tablet PO 90 mg Q12HR [facility] Administration Trazodone HCl 100 mg 12/13/24 23:50 12/15/24 02:31 Trazodone Hcl 50 Mg Tablet PO 100 mg HS [facility] Administration Vitamin B Complex/Folic Acid 1 cap 12/14/24 09:00 12/14/24 16:15 Vitamin B Cmplx/Vit C/Folic Ac 1 Capsule PO 1 cap QAM [facility] Administration Vitamin D 125 mcg 12/14/24 09:00 12/14/24 16:15 Cholecalciferol (Vitamin D3) 125 Mcg (5,000 Units) Tablet PO 125 mcg DAILY [facility] Administration Radiology Results: ITS Impressions Chest X-Ray 12/13/24 14:04 IMPRESSION: Findings within the bilateral lower lobes for which an infectious etiology is suspected. Chest CTA 12/13/24 15:21 IMPRESSION: No CT evidence of acute pulmonary embolus. Pulmonary findings most consistent with moderate pulmonary edema overlying severe emphysematous change. Scattered inflammatory infectious foci. Labs Labs: Laboratory Results - last 24 hr 12/15/24 04:35 WBC 6.4 RBC 4.00 L Hgb 12.9 L Hct 38.2 L MCV 95.5 MCH 32.3 MCHC 33.8 RDW 13.0 Plt Count 198 MPV 8.1 Immature Gran % (Auto) 0.6 H Neut % (Auto) 65.6 Lymph % (Auto) 22.1 [place] % (Auto) 10.4 H Eos % (Auto) 0.8 Baso % (Auto) 0.5 Lymph # (Auto) 1.42 [place] # (Auto) 0.7 H Eos # (Auto) 0.1 Baso # (Auto) 0.0 Abs Immat Gran (auto) 0.04 H Absolute Neuts (auto) 4.2 Absolute Nucleated RBC 0.000 Nucleated RBC % 0.0 Sodium 135 L Potassium 3.5 Chloride 99 Carbon Dioxide 30 Anion Gap 6 BUN 10 Creatinine 0.70 Estim Creat Clear Calc 100 Estimated GFR > 60 Glucose 116 H Calcium 9.1 Total Bilirubin 0.8 AST 28 ALT 21 Alkaline Phosphatase 61 Total Protein 6.7 Albumin 3.9 Quality VTE Prophylaxis VTE prophylaxis: mechanical ordered Hospitalist [facility] Advance Care Plan I have confirmed that the patient's Advanced Care Plan is present, code status is documented, or surrogate decision maker is listed in patient medical record.: Yes Medication Reconciliation I have utilized all available resources to obtain, update and review the patients current medications (includes all prescriptions, OTC, herbals, cannabis, and nutritional supplements).: Yes
[2024-12-15] MEDS: FLUTICASONE/UMECLIDIN/VILANTER 100-62.5-25 MCG ELLIPTA 1 PUFF INHALATION (09:12)
[2024-12-15] MEDS: guaiFENesin 12 HR 600 MG TABCR PO (09:17)
[2024-12-15] MEDS: VITAMIN B CMPLX/VIT C/FOLIC AC 1 CAPSULE 1 CAP PO (09:17)
[2024-12-15] MEDS: TICAGRELOR 90 MG TABLET PO (09:18)
[2024-12-15] MEDS: CHOLECALCIFEROL (VITAMIN D3) 125 MCG (5,000 UNITS) TABLET PO (09:18)
[2024-12-15] MEDS: CALCIUM CARBONATE (OSCAL) 250 MG TABLET PO (09:18)
[2024-12-15] MEDS: ASPIRIN 81 MG ENTERIC TABLET PO (09:18)
--- NOTE | 2024-12-15 10:44 | P.CONPL_ITS ---
Assessment and Plan Assessment and plan (1) Acute respiratory distress: Code(s): R06.03 - Acute respiratory distress Status: Acute Assessment and Plan: Patient was in his normal state of health and woke up with mild shortness of breath and 10 minutes later took a hot shower which has provoked respiratory issues in the past. After he left the hot shower his breathing improved but did not return to baseline and he called EMS. He had no prodrome of COPD exacerbation or pneumonia. his x-ray is consistent with dependent interstitial alveolar infiltrates and a CT scan showed no PE and congestion versus possible pneumonia. I have a very low suspicion that this is related to a COPD exacerbation or a bacterial pneumonia. He had a previous hospitalization with diffuse interstitial alveolar infiltrates after presented with hypertensive emergency with his known diastolic dysfunction and mitral regurg. at that time it was felt no additional cardiac workup needed to be performed. He may have similar condition currently. 12/15/2024: Patient is much improved. States he is 90% back to his normal. His cough is normal with no blood and no hemoptysis. He has no rest shortness of breath today. White blood cell count 6.4, creatinine 0.7. When I enter the room he is on 2 L with saturations 100%, I placed him on room air and after 12 minutes his saturations were 97%. Patient feels like he is ready to go home. I will complete treatment for possible COPD exacerbation and/or pneumonia. I discussed with hospitalist who will review case with Cardiology to determine if any cardiac workup needs to be performed at this time. Plan: From a pulmonary perspective case patient can be discharged on these pulmonary medications: Prednisone 40 mg p.o. q.day x3 days Azithromycin 250 mg p.o. q.day to complete a 5 day course Trelegy 100- 62.5-25 at 1 puff q.day Albuterol 2 puffs q.4 hours p.r.n. shortness of breath or wheezing. Albuterol 1.25 mg nebs q.4 hours p.r.n. shortness of breath or wheezing. Oxygen at rest and with activity to main saturations at 90-94% at home. Oxygen 2 L nasal cannula at night. with I told the patient if he is feeling stronger on 12/17/2024 that he can resume pulmonary rehabilitation and informed them that he was admitted to the hospital and told him he should not resume his previous full exercise routine a 41 minutes but that he showed take it slow on the 1st day back and build back up to that pace as tolerated. Vaping cessation and alcohol abstinence was discussed with the patient. Follow-up with previously scheduled pulmonary appointment on 01/02/2025. Discussed with Asim Elder with questions. History of Present Illness History of Present Illness Consult date: 12/15/24 Chief complaint: pneumonia,acute hypoxic respiratory Narrative: 12/15/2024: This is a new pulmonary consult for COPD and shortness of breath I previously seen the patient in consultation on 10/27/2024: 10/27/2024 through 10/31/2024: Patient was admitted to [facility] with syncope after walking to his car. ?He had no respiratory issues prior to him walking from his house to his car. ?Had no evidence of a COPD exacerbation.? Chest x-ray showed diffuse interstitial infiltrate consistent with edema.? CTA of the chest negative for PE.? Severe apical greater than basilar centrilobular emphysema and minimal dependent atelectasis versus edema.? He presented with a blood gas of 7.12/63/146 and was initially placed on BiPAP. I discussed the case with his international organizer and the patient has diastolic dysfunction with moderate mitral regurg and presented with hypertensive urgency a blood pressure 197/123 likely culminating in flash pulmonary edema. He felt no stress test was needed and to continue his current cardiac medications.? Off BiPAP for 24 hours his blood gas was 7.41/39/71.? His diffuse infiltrates resolved within 48 hours suggesting fluid rather than infection and antibiotics were discontinued after 5 days.? He was discharged on trelegy 100, Ensifentrine 2.5 ml BID (waiting for set up), rescue albuterol inhaler nebulizer.? 2 L nasal cannula at night.? Home O2 assessment demonstrated he required no oxygen at rest or with activity. Patient is followed in the Pulmonary Clinic in last seen on 11/20/2024. Patient had initiated pulmonary rehab as an outpatient and on 12/11 underwent 41 minutes of exercise at pulmonary rehabilitation. On 12/12 patient felt normal and was doing well. He continues to vape 2 hits of marijuana a night. 12/13/2024 the patient woke up and said that he had slight increase in his rest shortness of breath. No fever, chills, rigors, cough, phlegm production or hemoptysis. 10 minutes after awakening he took a shower. In the past hot showers with a steamy bathroom have caused him respiratory distress. Early [place] through the shower the room was filled with humidity and developed shortness of breath. He stops the shower and left the steamy bathroom and his breathing got a little bit better but not did not return to normal with extra oxygen and rescue albuterol and he called EMS. In the emergency room his blood pressure was 158/100, heart rate 103, respirations 32 on 10 L non-rebreather saturations were 100%. Whie blod kari count 11.9, creatinine 0.83, BNP 199, troponin negative. ABG on 3 L nasal cannula 7.36/47/64. CT angiogram of the chest was negative for PE, septal thickening with dependent consolidation in the lower lobes with stable nodules. Patient was treated with DuoNebs, Lasix, antibiotics and steroids. 12/15/2024: Patient is much improved. States he is 90% back to his normal. His cough is normal with no blood and no hemoptysis. He has no rest shortness of breath today. White blood cell count 6.4, creatinine 0.7. When I enter the room he is on 2 L with saturations 100%, I placed him on room air and after 12 minutes his saturations were 97%. Patient feels like he is ready to go home. DATA 12/13/24: EXAMINATION: CTA chest PE protocol INDICATION: Shortness of breath elevated D-dimer eval PE COMPARISON: 10/29/2024, 06/19/2024. FINDINGS: Lung parenchyma and airways: Patent airways. Severe emphysematous change. Dependent consolidation in the right middle lobe and bilateral lower lobes. Septal thickening. 9 mm irregular nodule in the superior portion of the left lower lobe. Persistent left lower lobe nodule more inferiorly, slightly smaller than the prior study now measuring 7 mm. 9 mm lingular nodular opacity, stable, with additional central areas of focal consolidation. Benign left upper lobe granuloma (image [id number]). Pleura: Trace bilateral pleural fluid collections. Thoracic inlet, axillae and chest wall: Unremarkable. Thoracic aorta: No significant dilation. No dissection. Mild atherosclerotic calcification. Mediastinum: Normal. Heart and pericardium: Normal. Coronary artery calcifications: Moderate. Upper abdomen: No significant finding. Bones: No acute osseous finding. Pulmonary arteries: Study quality: Adequate. No pulmonary emboli detected. IMPRESSION: No CT evidence of acute pulmonary embolus. Pulmonary findings most consistent with moderate pulmonary edema overlying severe emphysematous change. Scattered inflammatory infectious foci. 11/05/24:? This is a pulmonary function test with pre and post-bronchodilator spirometry, plethysmography and diffusing capacity.? The test was performed and results interpreted in accordance with the 2019 and 2005 ATS/ERS Task Force guidelines respectively using the Global Lung Function Initiative-2012 reference equations. Patient demonstrated good effort and cooperation. Reproducibility criteria were met. The quality of the pre bronchodilator spirometry maneuver was Grade A and post bronchodilator spirometry maneuver was Grade A. Findings: Spirometry:? There is decreased maximal expiratory airflow at all lung volumes with concave expiratory flow tracing.? The contour the inspiratory flow tracing is normal.? The pre bronchodilator FVC is 3.23 L, 69% predicted.? The pre bronchodilator FEV1 is 1.06 L, 29% predicted.? The pre bronchodilator FEV1: FVC ratio is 33%.? The post bronchodilator FVC is 3.66 L, representing a 13% increase.? The post bronchodilator FEV1 is 1.23 L, representing a 16% increase.? The post bronchodilator FEV1: FVC ratio is 34%.? Plethysmography:? Total lung capacity is 8.11 L, 113% predicted.? The functional residual capacity is 5.92 L, 157% predicted.? The residual volume is 4.74 L, 203% predicted.? The residual volume: Total lung capacity ratio is 58%.? Diffusing capacity:? The diffusing capacity unadjusted for hemoglobin and carboxyhemoglobin is 11.5, 40% predicted.? The diffusing capacity adjusted for alveolar volume is 2.54, 62% predicted. Impression: There is a severe obstructive abnormality. There is significant improvement after inhaling a single dose of albuterol.? The increase in residual volume to total lung volume ratio is consistent with hyperinflation from an obstructive abnormality.? The diffusing capacity unadjusted for hemoglobin and carboxyhemoglobin is moderately decreased and remains mildly decreased when adjusted for alveolar volume. In comparison to PFT limited report @ [facility] 06/09/21 the FEV1 has decreased from 39% to 29%.? In comparison to data from Pulmonary office visit note from May 2020 the FEV1 has decreased from 35% to 29%. 11/05/2024:? This is a 6 minute walk test. The test was performed and interpreted in accordance with the 2014 ERS/ATS task force guidelines. Findings:? The patient's resting room air oxygen saturation measured by pulse oximetry was 96%, the heart rate was 67 bpm, and the modified Tamara dyspnea score was 0. Patient ambulated for 30 meters and oxygen saturation remained 91 to 92%.? At the end of the study the heart rate was 66 bpm and the modified Tamara dyspnea score was 0. The patient did not qualify for supplemental oxygen at rest or with ambulation. There are no prior studies for comparison. 10/31/2024: Home O2 assessment: Rest room air saturation 95%. Exercise room air saturation 93%. Patient requires no supplemental oxygen at rest or with activity. He will require 2 L nasal cannula at night. 10/31/24: Patient had an overnight oximetry on room air with recording duration 6 hours and 8 minutes. Average saturation 91%. Low saturation 82%. Time with saturation less than or equal to 88% was 23 minutes. Oxygen desaturation index 7.6. 10/30/2024: Patient had an overnight oximetry on 2 L nasal cannula with recording duration 7 hours and 3 minutes. Average saturation 96%. Low saturation 91%. Time with saturation less than or equal to 88% was 0 minutes. Oxygen desaturation index 1.2. 10/28/24: Echo Summary 1. Complete two-dimensional, color flow and Doppler transthoracic echocardiogram is performed. 2. Technically suboptimal study due to poor sonographic images. 3. Left ventricular chamber dimension is normal. 4. Left ventricular systolic function is normal, estimated at 60-65. 5. The left ventricular diastolic function is abnormal. 6. E/e' 16 is elevated. 7. Left atrial chamber dimension is mildly enlarged. 8. The aortic valve is not well visualized. Cannot determine number of aortic valve leaflets. 9. There is moderate mitral valve regurgitation. 10. No pulmonary hypertension, estimated pulmonary arterial systolic pressure is 33 mmHg. Right Ventricle Right ventricular chamber dimension is normal. Right ventricular systolic function is normal. Right Atria Right atrial chamber dimension is normal. Chest CT 06/19/24 - Stable 4 mm left upper lobe nodule, likely benign. Consider follow-up low dose CT chest in 12 months. Emphysema. Echo 04/06/24 - EF 60-65%, mild to moderate mitral valve stenosis, no pulm HTN With PASP 19. Chest CT 06/19/24 - Stable 4 mm left upper lobe nodule, likely benign. Consider follow-up low dose CT chest in 12 months. Emphysema. Echo 06/18/23 - EF 30-35%. 6mw 11/22/22 - did not require O2 Chest CTA 06/17/23 - There are small pleural effusions. There is moderate emphysema. There are new airspace opacities of the lower lobes and right middle lobe. There is a decreasing airspace opacity of the right upper lobe. No PE. 12/28/2021: Alpha 1 PIMM normal PFT @ [facility] 06/09/21 severe airways obstruction. No evidence of airways restriction. DLCO severely reduced. Significant improvement in in flow rates post bronchodilator. FEV1 39% pred, FEV1/FVC 44%. From pulmonology office visit note: May 2020 FEV1: FVC ratio 38% and FEV1 35% predicted. Review of Systems 2 Constitutional: Constitutional: Reports no additional constitutional complaints Eyes: Eyes: Reports no additional eye complaints ENT: Reports system reviewed and no additional complaints, except as documented Cardiovascular: Cardiovascular: Reports no additional cardiovascular complaints Respiratory: Respiratory: Reports no additional respiratory complaints Gastrointestinal: Gastrointestinal: Reports no additional gastrointestinal complaints Musculoskeletal: Musculoskeletal: Reports no additional musculoskeletal complaints Neurologic: Reports system reviewed and no additional complaints, except as documented Psychiatric: Psychiatric: Reports no additional psychiatric complaints Endocrine: Endocrine: Reports no additional endocrine complaints Hematologic/Lymphatic: Hematologic/Lymphatic: Reports no additional hematologic/lymphatic complaints Allergic/Immunologic: Allergic/Immunologic: Reports no additional allergic/immunologic complaints [facility] Past Medical History Medical History Asthma Bilateral cataracts Non-STEMI (non-ST elevated myocardial infarction) Preop cardiovascular exam CAD (coronary artery disease) Pneumonia Emphysema lung Hypertension Chronic hyponatremia Thoracic compression fracture Gastroesophageal reflux disease Ischemic cardiomyopathy EF is low as 30 to 35% in June 2023; improved to 60 to 65% on echo obtained in August 2023. Osteoporosis COPD with chronic bronchitis and emphysema Heavy alcohol use Anxiety and depression has previously undergone ECT treatments Hypercholesteremia Former smoker Surgical History Surgical History Hx of cataract surgery History of coronary artery stent placement (06/2023) x3 to the LAD. History of tonsillectomy Family History Family History Father Aneurysm Grandparent Black lung Social History Social History Social History: Surrogate medical decision maker: Valeriano Laguna, sibling. Code status: Full code. Smoking packs per day: 1.5 Smoking cigarettes per day: 30.0 Years smoked: 42 Smoking pack-years: 63.00 Smoking status: Former smoker Second hand tobacco smoke exposure: No Smoking end date: 12/10/19 Alcohol intake: current Drinks per week: 6 Alcohol use details: wine Substance use: current Substance use type: marijuana Last use: Sunday Do You Feel Safe in your Home?: Yes Lack of Transportation: No Lack of Food: Never True Current Housing: I Have Housing Concerned About Future Housing: No Difficulty Paying Gas/Electric Bills: No Difficulty Paying for Meds: No Currently Unemployed: No Education: High School Diploma/GED Difficulty w/ Childcare or Family Care: No Living arrangements: alone Additional living arrangements comments: Lives alone in [place]. 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 Spiritual care concerns: No Meds Home Medications and Allergies Home Medications ?Medication ?Instructions ?Recorded ?Confirmed ?Type trazodone 100 mg tablet 100 mg PO HS 11/10/22 12/13/24 History aspirin 81 mg tablet,delayed 81 mg PO DAILY@0800 #90 tabs 06/19/23 12/13/24 Rx release calcium 100 mg capsule 100 mg PO DAILY 06/19/23 12/13/24 History losartan 25 mg tablet 12.5 mg (1/2 x 25 mg) PO DAILY #90 11/21/23 12/13/24 Rx tabs Trelegy Ellipta 100 mcg-62.5 1 inh inhalation QAM #60 ea 03/06/24 12/13/24 Rx mcg-25 mcg powder for inhalation (qumcmdjupyr-nauphepsb-pheqcdky) multivitamin (Daily Multi-Vitamin 1 tablet PO DAILY 03/13/24 12/13/24 History tablet) atorvastatin 80 mg tablet 80 mg PO HS #30 tabs 06/18/24 12/13/24 Rx albuterol sulfate 1.25 mg/3 mL 1.25 mg (3 mL) inhalation Q6H PRN 07/31/24 12/13/24 Rx solution for nebulization shortness of breath or wheezing #360 mL alendronate 70 mg tablet 70 mg PO WEEKLY #12 tabs 09/08/24 12/13/24 Rx aripiprazole 2 mg tablet 2 mg PO DAILY 09/08/24 12/13/24 History omeprazole 20 mg capsule,delayed 20 mg PO DAILY #90 caps 09/08/24 12/13/24 Rx release vitamin B complex-folic acid 0.4 1 tablet PO DAILY 09/08/24 12/13/24 History mg tablet (B Complex 1 (with folic acid)) ticagrelor 90 mg tablet (Brilinta) 90 mg PO Q12HR #180 tabs 09/24/24 12/13/24 Rx ensifentrine 3 mg/2.5 mL 2.5 ml inhalation QAM AND QPM #150 10/29/24 12/13/24 Rx suspension for nebulization mL (Ohtuvayre) furosemide 20 mg tablet 20 mg PO QAM #30 tabs 11/19/24 12/13/24 Rx carvedilol 6.25 mg tablet See Rx Instructions .Route 11/26/24 12/13/24 Rx .COMPLEX #60 tabs albuterol sulfate 90 mcg/actuation 2 puff inhalation Q6H PRN 12/13/24 12/13/24 History aerosol inhaler shortness of breath or wheezing cholecalciferol (vitamin D3) 125 5,000 unit PO DAILY 12/13/24 12/13/24 History mcg (5,000 unit) capsule Allergies Allergy/AdvReac Type Severity Reaction Status Date / Time No Known Allergies Allergy Verified 12/13/24 18:01 Vital Signs Vital Signs - 24 hr 12/14/24 12:00 12/14/24 13:50 12/14/24 13:50 Temperature Pulse Rate 728 H 80 Respiratory Rate 20 Blood Pressure Pulse Oximetry 98 Oxygen Delivery Nasal Cannula Oxygen Flow Rate 2 Fraction of Inspired Oxygen 28 12/14/24 13:57 12/14/24 14:00 12/14/24 16:00 Temperature 36.4 C L Pulse Rate 78 81 83 Respiratory Rate 20 18 Blood Pressure 117/77 Pulse Oximetry 96 Oxygen Delivery Oxygen Flow Rate Fraction of Inspired Oxygen 12/14/24 20:00 12/14/24 20:00 12/14/24 20:02 Temperature Pulse Rate 94 81 Respiratory Rate 18 Blood Pressure Pulse Oximetry 96 Oxygen Delivery Nasal Cannula Oxygen Flow Rate 4 Fraction of Inspired Oxygen 28 12/14/24 20:11 12/14/24 20:15 12/14/24 20:24 Temperature Pulse Rate 81 96 Respiratory Rate 18 Blood Pressure Pulse Oximetry 98 Oxygen Delivery Nasal Cannula Oxygen Flow Rate 2 Fraction of Inspired Oxygen 28 12/14/24 21:24 12/15/24 00:00 12/15/24 02:31 Temperature 36.5 C Pulse Rate 96 80 81 Respiratory Rate 16 18 Blood Pressure 116/69 Pulse Oximetry 94 Oxygen Delivery Oxygen Flow Rate Fraction of Inspired Oxygen 12/15/24 02:39 12/15/24 04:00 12/15/24 06:00 Temperature 36.5 C Pulse Rate 81 86 62 Respiratory Rate 18 16 Blood Pressure 128/60 Pulse Oximetry 96 Oxygen Delivery Oxygen Flow Rate Fraction of Inspired Oxygen 12/15/24 09:13 12/15/24 09:13 12/15/24 09:18 Temperature Pulse Rate 78 67 Respiratory Rate 18 Blood Pressure Pulse Oximetry 98 Oxygen Delivery Room Air Oxygen Flow Rate Fraction of Inspired Oxygen 12/15/24 09:25 Temperature Pulse Rate 78 Respiratory Rate 18 Blood Pressure Pulse Oximetry Oxygen Delivery Oxygen Flow Rate Fraction of Inspired Oxygen Exam 2 Const: General: cooperative, healthy appearing and comfortable O rientation/consciousness: oriented to person, oriented to place and oriented to time HENMT: Head: normal to inspection Ears: hearing grossly normal bilaterally Eyes: General: appearance normal, both eyes and all related structures Neck: Neck: normal visual inspection Chest: Chest palpation & inspection: normal inspection of the chest Resp: Effort & Inspection: normal respiratory effort and able to speak in complete sentences Auscultation: no crackles, no rales, no rhonchi, no wheezes and lung sounds not diminished Cardio: Jugular venous distension: no JVD GI: Inspection: normal to inspection GI Palp: No abdominal tenderness Skin: General skin exam: normal color Neuro: General: oriented to person, oriented to place and oriented to time Extrem: General: normal to inspection Psych: Appearance: grossly normal Results Laboratory Findings 12/15/24 04:35 12/15/24 04:35 ABG, PT/INR, D-dimer: ABG ABG pH 7.357 (7.350-7.450) 12/13/24 13:49 ABG pCO2 46.7 mmHg (35.0-45.0) H 12/13/24 13:49 ABG pO2 64.1 mmHg (80.0-100.0) L 12/13/24 13:49 ABG O2 Saturation 91.5 % (95.0-100.0) L 12/13/24 13:49 PT/INR, D-dimer PT 12.4 Seconds (11.1-14.7) 12/13/24 13:40 INR 0.9 12/13/24 13:40 D-Dimer 1.45 ug/mL (<0.48) H 12/13/24 13:40 Abnormal lab findings: Abnormal Labs 12/13/24 12/13/24 12/14/24 13:40 13:49 04:58 WBC 11.9 H RBC 3.94 L Hgb 12.9 L D Hct 36.8 L Immature Gran % (Auto) Neut % (Auto) 86.2 H Lymph % (Auto) 6.2 L [place] % (Auto) 10.1 H Lymph # (Auto) 0.74 L [place] # (Auto) 0.7 H 1.0 H Abs Immat Gran (auto) 0.06 H Absolute Neuts (auto) 10.2 H D-Dimer 1.45 H ABG pCO2 46.7 H ABG pO2 64.1 L ABG O2 Saturation 91.5 L Sodium 134 L Potassium 3.2 L Creatinine 0.68 L Glucose 211 H NT-Pro-B Natriuret Pep 199 H 12/15/24 04:35 WBC RBC 4.00 L Hgb 12.9 L Hct 38.2 L Immature Gran % (Auto) 0.6 H Neut % (Auto) Lymph % (Auto) [place] % (Auto) 10.4 H Lymph # (Auto) [place] # (Auto) 0.7 H Abs Immat Gran (auto) 0.04 H Absolute Neuts (auto) D-Dimer ABG pCO2 ABG pO2 ABG O2 Saturation Sodium 135 L Potassium Creatinine Glucose 116 H NT-Pro-B Natriuret Pep Diagnostic Findings Additional studies: ITS Impressions Chest X-Ray 12/13/24 14:04 IMPRESSION: Findings within the bilateral lower lobes for which an infectious etiology is suspected. Chest CTA 12/13/24 15:21
--- NOTE | 2024-12-15 15:36 | PCRCNOTE ---
Home O2 eval complete. Patient does not require home O2 at this time. RN notified.
[2024-12-17 15:54] LABS: Pneumococcal Antigen Urine NOT DETECTED
[2024-12-17 16:58] LABS: Legionella pneumophila Ag Ur. NOT DETECTED
[2024-12-18 16:13] LABS: Human Parainfluenza Virus 1 Not Detected (Not Detected); Human Parainfluenza Virus 2 Not Detected (Not Detected); Human Parainfluenza Virus 3 Not Detected (Not Detected); Human Parainfluenza Virus 4 Not Detected (Not Detected); Human RSV B Not Detected (Not Detected)
[2024-12-18 18:39] LABS: Mycoplasma IgM Antibody Titer. 484 U/mL
--- NOTE | 2025-01-05 19:52 | PM.DS ---
DS: Admitting Diagnosis Discharge Date 12/15/24 Admitting Diagnosis Shortness of breath DS: Discharge Diagnosis Discharge Diagnosis (1) Diastolic dysfunction: Code(s): I51.89 - Other ill-defined heart diseases Status: Chronic (2) Mitral valve regurgitation: Code(s): I34.0 - Nonrheumatic mitral (valve) insufficiency Status: Acute (3) Tachycardia: Code(s): R00.0 - Tachycardia, unspecified Status: Acute (4) Hyperglycemia: Code(s): R73.9 - Hyperglycemia, unspecified Status: Acute (5) Acute respiratory failure with hypoxia and hypercapnia: Code(s): J96.01 - Acute respiratory failure with hypoxia; J96.02 - Acute respiratory failure with hypercapnia Status: Acute (6) COPD with emphysema: Code(s): J43.9 - Emphysema, unspecified Status: Acute (7) Pneumonia: Code(s): J18.9 - Pneumonia, unspecified organism Status: Acute (8) Sepsis: Qualifiers: Sepsis type: sepsis due to unspecified organism Sepsis acute organ dysfunction status: with acute organ dysfunction Severe sepsis acute organ dysfunction type: acute respiratory failure Acute respiratory failure type: with hypoxia Severe sepsis shock status: without septic shock Qualified Code(s): A41.9 - Sepsis, unspecified organism; R65.20 - Severe sepsis without septic shock; J96.01 - Acute respiratory failure with hypoxia Code(s): A41.9 - Sepsis, unspecified organism Status: Acute DS: Summary Hospital Course Reason for hospitalization: Copied from [facility] 12/15: 64 y/o M with PMH of coronary artery disease status post stents to the LAD in June 2023, ischemic cardiomyopathy with improved ejection fraction to 60 to 65% in Mar and October, hypertension, chronic obstructive pulmonary disease (GOLD Grade 3 Group E), hyperlipidemia, and gastroesophageal reflux disease presents here with shortness of breath. The patient presents here from home via EMS on 12/13 for further evaluation of shortness of breath. The patient reports onset of shortness of breath intermittently, this will be his third time being admitted for SOB. He reports onset of shortness of breath for this admission today while he was in the shower. It is accompanied by productive cough yielding blood tinged/pink or red sputum. States this is brighter than it has been previously and he feels it is coming from higher in his throat. He endorses alcohol use - 6 days per week and a 5L wine box lasts him 4 nights. He denies any withdrawal symptoms with cessation. SOB is also accompanied by feeling hot but not feverish. He denies chills, body aches, chest pain, nausea, vomiting or diarrhea. The patient has a respiratory history significant for COPD (GOLD Grade 3 Group E). He follows with pulmonology outpatient, last visit on 11/20/2024 with Anika NAILS. Patient does not smoke tobacco, uses a vaporizer (not a vape) that is the least invasive way according to the patient to smoked marijuana. Patient reports he sat next to someone yesterday that smoked and he tried to lean away from it, no other exposures or triggers precipitating SOB. Initial VS at presentation: 97.9? F, HR 103, R 32, 158/100, and 100% on non-rebreather. Now on 4L nasal cannula at 96% ED workup showed: WBC 11.9, no anemia, normal coags, elevated D-dimer, initial ABG showed a CO2 of 46.7/O2 64.1/O2 saturation 91.5% on 3L nasal cannula, no significant electrolyte derangements, creatinine 0.83 and GFR >60, glucose 211, BNP 199, initial troponin negative. CXR showed findings within the bilateral lower lobes for which infectious etiologies suspected. Chest CTA showed no CT evidence of acute PE, pulmonary findings most consistent with moderate pulmonary edema overlying severe emphysematous changes, scattered inflammatory infectious foci. Hospital Course: Acute Respiratory Distress: The patient experienced acute respiratory distress after a hot shower, which has been a prior trigger for him. Imaging showed dependent interstitial alveolar infiltrates, and CT scan ruled out pulmonary embolism. The condition improved significantly with treatment, and the patient was stable on room air with saturations at 97% before discharge. D-dimer elevated, 1.45 WBC 11.9 >6.4 IMAGING 12/13 CXR: Findings within the bilateral lower lobes for which an infectious etiology is suspected. 12/13 CTA: No CT evidence of acute pulmonary embolus. Pulmonary findings most consistent with moderate pulmonary edema overlying severe emphysematous change. Scattered inflammatory infectious foci. - continued supplemental oxygen, wean as tolerated, baseline is 2L at HS only at home. Sepsis Pneumonia: Suspected pneumonia was treated with azithromycin and supportive care. Imaging showed scattered inflammatory infectious foci, and the patient responded well to treatment. Blood cultures no growth Imaging showing scattered inflammatory/infectious foci of the lungs - started on CAP tx: ceftriaxone and azithromycin on 12/13 - MRSA PCR negative on 10/28/2024 - check sputum culture, mycoplasma, pneumococcal, and Legionella - supportive care: Mucinex denita, Tessalon Perles p.r.n., Tylenol p.r.n., DuoNebs formerly [facility] Chronic Obstructive Pulmonary Disease (COPD): The patient has a history of COPD with chronic bronchitis and emphysema. Treatment included prednisone, Trelegy, and albuterol. Pulmonary rehabilitation was discussed, and the patient was advised to resume gradually. Treated with prednisone and azithromycin. ICS Diastolic Dysfunction Moderate Mitral valve regurg The patient has diastolic dysfunction with moderate mitral regurgitation. Cardiology was consulted, and no additional cardiac workup was deemed necessary at this time. BNP 199. Appeared euvolemic. Monitored I&O & daily weights. Concern for flash pulmonary edema in the setting of uncontrolled HTN. Most recent echo HFpEF with diastolic dysfunction on 10/28/24, normal LVEL, moderate Mitral valve regurg, which is likely contributing CTA Concerning for moderate pulmonary edema, sujathaed Needs follow up with cardiology/valve clinic . Hypertension: The patient continued on home medications, including carvedilol, losartan, and furosemide. Home meds: Carvedilol 6.25 BID, Losartan 25 daily, furosemide 20 daily - continue home medications Pulmonary Consultation: The patient was seen for COPD and shortness of breath. Previous episodes were associated with hypertensive emergencies and pulmonary edema. Current imaging showed no pulmonary embolism but indicated moderate pulmonary edema and emphysematous changes. The patient was treated with DuoNebs, Lasix, antibiotics, and steroids, showing significant improvement. Status at Discharge Cognitive/behavioral status at discharge: A&Ox4 Time Spent with Patient Time attestation: Total time spent providing and/or coordinating discharge services: 58 minutes Exam Narrative: Const: General: cooperati ve, healthy appear ing and comfortabl e Orientation/con sciousness: orient ed to person, orie nted to place and oriented to time HENMT: Head: normal to in spection Ears: he aring grossly norm al bilaterally Eyes: General: appearanc e normal, both eye s and all related structures Neck: Neck: normal visua l inspection Chest: Chest palpation & inspection: normal inspection of the chest Resp: Effort & Inspectio n: normal respirat ory effort and abl e to speak in comp lete sentences Au scultation: no aircraft stress analyst ckles, no rales, n o rhonchi, no whee zes and lung sound s not diminished Cardio: Jugular venous dis tension: no JVD GI: Inspection: normal to inspection GI Palp: No abdomina l tenderness Skin: General skin exam: normal color Neuro: General: oriented to person, oriente d to place and jose ented to time Extrem: General: normal to inspection Psych: Appearance: grossl y normal Discharge Plan Discharge Attending physician on discharge: Sandrita Velasco Consulting providers: Caty Ascencio; Dieudonne Mcwilliams; Matt Calvillo; Breann Johnson; Emerita Tse; Matt Frausto Discharging Clinician: Sandrita Velasco Anticipated Discharge Date/Time: 12/15/24 15:46 Patient Disposition: Home Activity: october shower Diet: regular Discharge Instructions: Follow up with your PCP in 1-2 weeks Follow up with pulmonary Come back to the ER for increased shortness of breath or chest pain. Continue to wear 2L Oxygen at night Recommend complete alcohol cessation. If not planning to quit, recommend cutting back as much as possible Patient Instructions: Antibiotic Form Patient Language: Chadian Stand Alone Forms: General Discharge Information Follow-up/Referrals: Dieudonne Posada MD [Primary Care Provider] - 2 Weeks Dieudonne Mcwilliams MD [Physician] - 4 Weeks Discharge Medications: New benzonatate 100 mg Capsule 100 mg PO TID PRN (Reason: Cough) Qty: 30 0RF guaifenesin [Mucus Relief ER] 600 mg Tablet Extended Release 12hr 600 mg PO Q12HR Qty: 30 0RF Continued trazodone 100 mg tablet 100 mg PO HS vitamin B complex-folic acid [B Complex 1 (with folic acid)] 0.4 mg tablet 1 tablet PO DAILY alendronate 70 mg tablet 70 mg PO WEEKLY Qty: 12 2RF Rx Instructions: Takes on Sunday omeprazole 20 mg capsule,delayed release(DR/EC) 20 mg PO DAILY Qty: 90 2RF aripiprazole 2 mg tablet 2 mg PO DAILY losartan 25 mg tablet 12.5 mg PO DAILY Qty: 90 3RF furosemide 20 mg tablet 20 mg PO QAM Qty: 30 5RF multivitamin [Daily Multi-Vitamin] Tablet 1 tablet PO DAILY aspirin 81 mg tablet,delayed release (DR/EC) 81 mg PO DAILY@0800 Qty: 90 3RF cholecalciferol (vitamin D3) 125 mcg (5,000 unit) capsule 5,000 unit PO DAILY albuterol sulfate 90 mcg/actuation HFA aerosol inhaler 2 puff INHALATION Q6H PRN (Reason: shortness of breath or wheezing) calcium 100 mg Capsule 100 mg PO DAILY Trelegy Ellipta 100-62.5-25 mcg blister with device 1 inh inhalation QAM Qty: 60 11RF Rx Instructions: rinse and spit albuterol sulfate 1.25 mg/3 mL solution for nebulization 1.25 mg inhalation Q6H PRN (Reason: shortness of breath or wheezing) Qty: 360 2RF Brilinta 90 mg tablet 90 mg PO Q12HR Qty: 180 2RF Ohtuvayre 3 mg/2.5 mL suspension for nebulization 2.5 ml inhalation QAM AND QPM Qty: 150 5RF Rx Instructions: This will replace Daliresp (roflumilast) carvedilol 6.25 mg tablet See Rx Instructions .ROUTE .COMPLEX Qty: 60 5RF Dose Instruction: TAKE 1 TABLET BY MOUTH EVERY 12 HOURS Rx Instructions: TAKE 1 TABLET BY MOUTH EVERY 12 HOURS No Action atorvastatin 80 mg tablet See Rx Instructions .ROUTE .COMPLEX Qty: 30 0RF Dose Instruction: TAKE 1 TABLET BY MOUTH AT BEDTIME Rx Instructions: TAKE 1 TABLET BY MOUTH AT BEDTIME Date of admission: 12/14/24 14:03 Primary Care Provider: Dieudonne Posada Admitting Provider: Moses Clark Attending physician on admission: Sandrita Velasco Condition: Stable Hospitalist MIPS Heart Failure (Exclusion) Patient has history of Heart Transplant or Left Ventricular Assistive Device?: No IF YES, STOP HERE Heart Failure (Qualifier) Patient has current or prior documentation of LVEF less than or equal to 40%, or mod/servere depressed LVSF?: No IF NO, STOP HERE
== END 2024-12-15 16:40 | disposition home or self-care (01) | DRG 720 ==
LOC: ANHED 15:43 → ANH2MED 16:21
PROVIDERS: Emergency Medicine; Internal Medicine Pulmonary Disease; Nurse Practitioner Adult Health; Student in an Organized Health Care Education/Training Program; Admitting Provider Family Medicine; Emergency Provider Emergency Medicine; PCP Emergency Medicine; Visit Provider Nurse Practitioner Acute Care
DX: A41.9 Sepsis, unspecified organism (principal); J96.01 Acute respiratory failure with hypoxia; J18.9 Pneumonia, unspecified organism; J44.1 Chronic obstructive pulmonary disease with (acute) exacerbation; I25.10 Atherosclerotic heart disease of native coronary artery without angina pectoris; J44.0 Chronic obstructive pulmonary disease with (acute) lower respiratory infection; K21.9 Gastro-esophageal reflux disease without esophagitis; I25.5 Ischemic cardiomyopathy; M81.0 Age-related osteoporosis without current pathological fracture; E78.00 Pure hypercholesterolemia, unspecified; I51.89 Other ill-defined heart diseases; I16.0 Hypertensive urgency; F41.8 Other specified anxiety disorders; Z66 Do not resuscitate; I25.2 Old myocardial infarction; Z87.891 Personal history of nicotine dependence; Z95.5 Presence of coronary angioplasty implant and graft
CPT/HCPCS: 36415; 36600; 71045; 71275; 80053; 82805; 83605; 83880; 84484; 85018; 85025; 85380; 85610; 85730; 86738; 87040; 87070; 87205; 87449; 87633; 87899; 93005; 94618; 94640; 96365; 96367; 96374; 96375; 99285; A9270; G0378; G0379; J0456; J0696; J1938; J7512; Q9967

== ENCOUNTER 2024-12-18 11:55 | Outpatient (CLI) | payer OTHER, SELFPAY ==
--- OUTSIDE RECORDS SUMMARY | 2024-12-18 11:57 | XMS_ITS | Clinical Summary ---
Author Organization [facility] Address [address] [place] [address] Care Team Providers Care Paper Tube Cutter Name Role Phone Ivette Barba APRN-MUSIC MIXER Primary Care Provider Source Comments [facility],non-owned Affiliates and Associated Physician Practices is amultiple site organization consisting of ambulatory clinics and hospital sitesin [place], [place], [place] and [place]. This disclosure is being madepursuant to the Care Everywhere program and may not contain all information available regarding this patient. 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 Gender Identity Not on file Sexual Orientation [...] Tdap) 1981 PNEUMOCOCCAL VACCINE 50+ (1 of 1 - PCV) 2012 ZOSTER VACCINE (1 of 2) 2012 COVID-19 VACCINE (1 - 2023-2 5 season) 2024 DEPRESSION SCREENING 06/11/2024 INFLUENZA VACCINE (#1) 2025 Respiratory Syncytial Virus (RSV) Vaccine Pt: or over 60 yrs (1 - 1-dose 75+ series) 2037 HEPATITIS B VACCINE Aged Out No longe [...] patient's age to complete this topic Insurance [facility] Care Teams Paper Tube Cutter Relationship Specialty Start Date End Date Ivette Barba, CURTAIN FITTER-MUSIC MIXER [address] [place] [id number] PCP - General 11/10/21
--- OUTSIDE RECORDS SUMMARY | 2024-12-18 11:57 | XMS_ITS | Clinical Summary ---
Author Organization [facility] Address [address] [facility] [place] [address] Phone Care Team Providers Care Population Health Coach Name Role Phone Ivette Barba APRN, SPECIALTY FOODS COOK Primary Care Pro vider Allergies No known active allergies Medications buPROPion, Smoking Deter, (ZYBAN) 150 MG TABLET SR 12 HR Take 150 mg by mouth 2 times daily. Active diazePAM (VALIUM) 5 MG Tablet Take 5 mg by mouth every 8 hours as needed. Active famotidine (PEPCID) 20 MG Tablet Take 20 mg by mouth 2 times daily. Active [place]-3 Fatty Acids (FISH OIL PO) Take by [...] Comments Blood Pressure 120/70 06/27/2021 1:33 PM USER INTERFACE DEVELOPER Pulse 66 06/27/2021 1:33 PM USER INTERFACE DEVELOPER Temperature 36.6 C (97.9 F) 06/27/2021 1:33 PM USER INTERFACE DEVELOPER Respiratory Rate 16 06/27/2021 1:33 PM USER INTERFACE DEVELOPER Oxygen Saturation 97% 06/27/2021 1:33 PM USER INTERFACE DEVELOPER Inhaled Oxygen Concentration - - Weight 78.1 kg (172 lb 1.6 oz) 06/27/2021 1:33 P M USER INTERFACE DEVELOPER Height 180.3 cm (5' 11) 06/27/2021 1:33 PM USER INTERFACE DEVELOPER Body Mass Index 24 06/27/2021 1:33 PM USER INTERFACE DEVELOPER Plan of Treatment Health Maintenance Due Date Last Done Comments Hepatitis C Virus (HCV) Screening 1962 TdaP Immunization 1962 Pneumococcal Immunization (50+ years) (1 of 2 - PCV) 1981 Cologuard 2007 Colonoscopy 2007 Colorectal Cancer Screening 2007 Immunochemical Fecal Occult Blood 2007 Zoster Immunization (1 of 2) 2012 Respiratory Syncytial Virus (RSV) Immunization (Adult) (1 - Risk 60-74 years 1-dose series) 2022 SARS-COV-2 Immunization (5 - 2024-25 season) 2024 03/13/2022, 03/30/2021, 09/20/2020, Additional history exists Influenza Immunization (#1) 2025 04/14/2019, 1 07/30/2017 Hepatitis B Immunization Aged Out No longer [...] age to complete this topic Insurance MEDICAID [place] Care Teams Population Health Coach Relationship Specialty Start Date End Date Ivette Barba, OPERATIONS WELDER, SPECIALTY FOODS COOK [address] [place], [place] [address] PCP - General Certified Nurse Practitioner 06/09/21
[2024-12-18 18:59] LABS: Alanine Aminotransferase 19 U/L (6-50); Albumin Level 4.2 g/dL (3.5-5.1); Alkaline Phosphatase 59 U/L (38-126); Anion Gap 8 mmol/L (4-12); Aspartate Amino Transferase 58 U/L (17-59); Bilirubin,Total 0.3 mg/dL (0.2-1.3); Blood Urea Nitrogen 14 mg/dL (9-20); Calcium 8.8 mg/dL (8.4-10.2); Carbon Dioxide 30 mmol/L (22-30); Chloride 101 mmol/L (98-107); Cholesterol 153 mg/dL (0-200); Estimated Glomerular Filt Rate > 60; Glucose 89 mg/dL (65-110); HDL Direct 72 mg/dL; Potassium 3.4 mmol/L (3.4-5.0); Sodium 139 mmol/L (137-145); Total Protein 6.9 g/dL (6.3-8.2); Triglycerides 138 mg/dL (<150)
== END 2024-12-18 11:56 | disposition home or self-care (01) ==
LOC: ANHGOSHLAB 11:55
PROVIDERS: PCP Emergency Medicine; Visit Provider Emergency Medicine
DX: E55.9 Vitamin D deficiency, unspecified (principal); E78.5 Hyperlipidemia, unspecified
CPT/HCPCS: 36415; 80053; 80061; 82306

== ENCOUNTER 2024-12-18 16:46 | Inpatient (IN) | payer OTHER, SELFPAY ==
[2024-12-18] VITALS (15 sets, daily range): BP systolic 104–152; BP diastolic 66–99; PULSE 83–116; RESP 18–26; TEMP 36.4–36.7; O2SAT 92–99; BMI 24.0
--- NOTE | ~2024-12-18 | XR_ITS ---
XR chest 1V portable Ordering provider: Dieudonne Mcwilliams MD History: 64 years Male with changes Left. fluid overload . Comparison: None. FINDINGS: MEDIASTINUM: The cardiac silhouette is not enlarged. LUNGS: No infiltrates, effusions or pneumothorax. OTHER: No free air under the diaphragm. IMPRESSION: No acute cardiopulmonary pathology. Reviewed, dictated and finalized at location A.
--- NOTE | ~2024-12-18 | XR_ITS ---
XR chest 1V portable Ordering provider: Maryann Haynes III, DO History: 64 years Male with . sob . Comparison: December 13, 2024 FINDINGS: MEDIASTINUM: The cardiac silhouette is not enlarged. Prominent leroy. LUNGS: No effusions or pneumothorax. Bibasilar opacification more on the right side suggestive of pne umonia. Bilateral interstitial thickening is seen which may indicate pulmonary edema versus pneumonit is. Underlying fibrotic changes are noted. OTHER: No free air under the diaphragm. IMPRESSION: Bilateral basal pneumonia. Underlying pulmonary edema versus pneumonitis. Reviewed, dictated and finalized at location A.
--- NOTE | ~2024-12-18 | US_ITS ---
EXAMINATION: US venous doppler UE RT DATE: 12/22/2024 18:47 INDICATION: pain and swelling . TECHNIQUE: Grayscale ultrasound images without and with compression and Doppler ultrasound images of the right upper extremity veins were obtained. COMPARISON: None. FINDINGS: The visualized portions of the right internal jugular vein, subclavian vein, axillary vein, brachial veins, basilic vein, cephalic vein, radial vein, and ulnar vein are patent. Hypoechoic area adjacent to the brachial vein in the area of clinical concern, may represent small volume hemorrhage and bruis ing particularly if there is been recent venous access. IMPRESSION: No deep venous thrombosis. Reviewed, dictated and finalized at location K. IMPRESSION: No deep venous thrombosis.
--- NOTE | 2024-12-18 16:57 | ED_ITS ---
HPI - SOB/Dyspnea General Chief Complaint: Shortness of Breath/Dyspnea Stated Complaint: respiratory distress Time Seen by Provider: 12/18/24 16:52 History of Present Illness HPI Narrative: Pt presents with SOB for several days but worse today. Pt has COPD and is currently being treated for pneumonia. Pt has had intermittent bloody sputum production for days. Pt was satting in 60's on EMS arrival in severe distress. EMS gave neb put on cpap and gave magnesium and now sats in 90's. Pt says he does not want to be intubated. Related Data Home Medications ?Medication ?Instructions ?Recorded ?Confirmed ?Last Taken ?Type trazodone 100 mg tablet 100 mg PO HS 11/10/22 12/13/24 12/12/24 21:00 History 100 mg calcium 100 mg capsule 100 mg PO DAILY 06/19/23 12/13/24 12/12/24 17:00 History 100 mg multivitamin (Daily Multi-Vitamin 1 tablet PO DAILY 03/13/24 12/13/24 12/12/24 17:00 History tablet) 1 tablet aripiprazole 2 mg tablet 2 mg PO DAILY 09/08/24 12/13/24 12/12/24 17:00 History 2 mg vitamin B complex-folic acid 0.4 1 tablet PO DAILY 09/08/24 12/13/24 12/12/24 17:00 History mg tablet (B Complex 1 (with folic 1 tablet acid)) albuterol sulfate 90 mcg/actuation 2 puff inhalation Q6H PRN 12/13/24 12/13/24 12/13/24 09:00 History aerosol inhaler shortness of breath or wheezing 3 puff cholecalciferol (vitamin D3) 125 5,000 unit PO DAILY 12/13/24 12/13/24 12/12/24 17:00 History mcg (5,000 unit) capsule 5,000 unit Allergies Allergy/AdvReac Type Severity Reaction Status Date / Time No Known Allergies Allergy Verified 12/18/24 17:16 Review of Systems 2 Review of Systems: All systems reviewed & are unremarkable except as noted in HPI and below [facility] Past Medical History Medical History Asthma Bilateral cataracts Non-STEMI (non-ST elevated myocardial infarction) Preop cardiovascular exam CAD (coronary artery disease) Pneumonia Emphysema lung Hypertension Chronic hyponatremia Thoracic compression fracture Gastroesophageal reflux disease Ischemic cardiomyopathy EF is low as 30 to 35% in June 2023; improved to 60 to 65% on echo obtained in August 2023. Osteoporosis COPD with chronic bronchitis and emphysema Heavy alcohol use Anxiety and depression has previously undergone ECT treatments Hypercholesteremia Former smoker Surgical History Surgical History Hx of cataract surgery History of coronary artery stent placement (06/2023) x3 to the LAD. History of tonsillectomy Family History Family History Father Aneurysm Grandparent Black lung Social History Social History Social History: Surrogate medical decision maker: Valeriano Laguna, sibling. Code status: Full code. Smoking packs per day: 1.5 Smoking cigarettes per day: 30.0 Years smoked: 42 Smoking pack-years: 63.00 Smoking status: Former smoker Second hand tobacco smoke exposure: No Smoking end date: 12/10/19 Alcohol intake: current Drinks per week: 6 Alcohol use details: wine Substance use: current Substance use type: marijuana Last use: Sunday Do You Feel Safe in your Home?: Yes Lack of Transportation: No Lack of Food: Never True Current Housing: I Have Housing Concerned About Future Housing: No Difficulty Paying Gas/Electric Bills: No Difficulty Paying for Meds: No Currently Unemployed: No Education: High School Diploma/GED Difficulty w/ Childcare or Family Care: No Living arrangements: alone Additional living arrangements comments: Lives alone in [place]. 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 Spiritual care concerns: No Exam 2 Const: General: ill appearing Nutritional Appearance: thin O rientation/consciousness: patient oriented x3 Limitations: other limitations (resp distress) Chest: Other: barrel chest Resp: Effort & Inspection: labored, retractions and tachypneic A uscultation: diminished lung sounds Cardio: Rate: regular rate Rhythm: regular rhythm GI: GI Palp: Yes Soft to palpation and No Tenderness to palpation present (GI) Auscultation: normal bowel sounds Skin: Rashes: no rashes Wounds: no wounds Neuro: General: patient oriented x3, moves all extremities, no meningeal signs and no focal motor deficits Speech: normal speech Extrem: General: normal to inspection and no clubbing, cyanosis or edema Psych: Mental Status: mental status grossly normal Affect: normal affect Attitude: cooperative Course Vital Signs Vital signs: Vital Signs Temperature 97.6 F 12/18/24 16:50 Pulse Rate 116 H 12/18/24 16:50 Respiratory Rate 26 H 12/18/24 16:50 Blood Pressure 152/78 H 12/18/24 16:50 Pulse Oximetry 95 12/18/24 16:50 Oxygen Delivery BiPAP 12/18/24 16:50 Temperature 97.6 F 12/18/24 16:50 Pulse Rate 99 12/18/24 18:24 Respiratory Rate 20 12/18/24 18:24 Blood Pressure 111/88 12/18/24 18:24 Pulse Oximetry 97 12/18/24 18:24 Oxygen Delivery BiPAP 12/18/24 17:12 MDM - SOB/Dyspnea MDM Narrative Medical decision making narrative: Pt presents with severe SOB on cpap and getting neb. Pt is still in distress but is much improved per pt and ems. Pt does not want to be intubated. will get labs and cxr and give hour long neb and solumedrol. Pt much better after neb and on bipap, cxr shows bibasilar pneumonia, wbc elevated, abg minimal respiratory acidosis. discussed with mary and agrees to admit would like levaquin for pneumonia. Differential Diagnosis Differential diagnosis: Likely acute exacerbation of chronic obstructive airways disease, congestive heart failure, community acquired pneumonia, asthma with exacerbation, pulmonary embolism and other (pneumothorax) Lab Data 12/18/24 17:07 12/18/24 17:07 Labs: Lab Results 12/18/24 12/18/24 12/18/24 Range/Units 17:05 17:07 17:20 WBC 11.2 H (4.5-10.0) K/mm3 RBC 5.01 (4.6-6.20) M/mm3 Hgb 16.2 D (14.0-18.0) g/dL Hct 46.9 (42.0-52.0) % MCV 93.6 (80-100) fl MCH 32.3 (26-34) pg MCHC 34.5 (32-36) g/dl RDW 13.0 (11.5-14.5) % Plt Count 335 D (150-375) k/mm3 MPV 8.1 (7.4-10.4) fl Immature Gran % (Auto) 1.2 H (0-0.5) % Neut % (Auto) 85.6 H (45.5-73.1) % Lymph % (Auto) 10.4 L (18.3-44.2) % Brooks % (Auto) 2.2 L (2.6-8.5) % Eos % (Auto) 0.2 (0-4.4) % Baso % (Auto) 0.4 (0.2-1.2) % Lymph # (Auto) 1.16 (0.9-3.2) K/mm3 Brooks # (Auto) 0.3 (0.1-0.6) K/mm3 Eos # (Auto) 0.0 (0-0.3) K/mm3 Baso # (Auto) 0.0 (0.0-0.1) K/mm3 Abs Immat Gran (auto) 0.13 H (0.00-0.031) K/mm3 Absolute Neuts (auto) 9.6 H (1.3-6.7) K/mm3 Absolute Nucleated RBC 0.000 (0.0-0.012) K/mm3 Nucleated RBC % 0.0 (0.0-0.2) % PT 12.4 (11.1-14.7) Seconds INR 0.9 APTT 27.7 (22.3-36.8) Seconds Expiratory Pressure 5 CMH2O Inspiratory Pressure 20 CMH2O Sodium 132 L (137-145) mmol/L Potassium 4.6 (3.4-5.0) mmol/L Chloride 98 (98-107) mmol/L Carbon Dioxide 23 (22-30) mmol/L Anion Gap 11 (4-12) mmol/L BUN 18 (9-20) mg/dL Creatinine 0.80 (0.7-1.3) mg/dL Estim Creat Clear Calc 89 ml/min Estimated GFR > 60 (59 - ) Glucose 278 H (65-110) mg/dL Lactic Acid 1.5 (0.7-2.0) mmol/L Calcium 8.8 (8.4-10.2) mg/dL Magnesium 2.5 H (1.6-2.3) mg/dL Total Bilirubin 0.7 (0.2-1.3) mg/dL AST 36 (17-59) U/L ALT 25 (6-50) U/L Alkaline Phosphatase 95 (38-126) U/L Troponin I < 0.012 (0.000-0.034) ng/mL NT-Pro-B Natriuret Pep 307 H (19.9-100) pg/mL Total Protein 8.0 (6.3-8.2) g/dL Albumin 4.5 (3.5-5.1) g/dL ABG Data ABG results: 12/18/24 17:05 Puncture Site Left radial ABG pH 7.315 L ABG pCO2 46.3 H ABG pO2 93.1 ABG PO2/FiO2 Ratio 2.33 ABG HCO3 23.1 ABG O2 Saturation 96.5 ABG O2 Content 22.7 H ABG Base Excess -3.4 A-a Gradient 138.9 Oxyhemoglobin 95.2 Total Hemoglobin 16.9 O2 Delivery Device Non-invasive vent O2 Liters/Min Not Reportable Vent Rate 20 FiO2 40 Critical Care Time Critical Care Time Critical Care Time: Yes Total Critical Care Time: 42 Discharge Plan Discharge Clinical Impression: Pneumonia, Acute respiratory distress Patient Disposition: Still a Patient Condition: Improved Patient Language: Turkmen Prescriptions: No Action trazodone 100 mg tablet 100 mg PO HS vitamin B complex-folic acid [B Complex 1 (with folic acid)] 0.4 mg tablet 1 tablet PO DAILY alendronate 70 mg tablet 70 mg PO WEEKLY Qty: 12 2RF Rx Instructions: Takes on Sunday omeprazole 20 mg capsule,delayed release(DR/EC) 20 mg PO DAILY Qty: 90 2RF aripiprazole 2 mg tablet 2 mg PO DAILY losartan 25 mg tablet 12.5 mg PO DAILY Qty: 90 3RF furosemide 20 mg tablet 20 mg PO QAM Qty: 30 5RF multivitamin [Daily Multi-Vitamin] Tablet 1 tablet PO DAILY aspirin 81 mg tablet,delayed release (DR/EC) 81 mg PO DAILY@0800 Qty: 90 3RF cholecalciferol (vitamin D3) 125 mcg (5,000 unit) capsule 5,000 unit PO DAILY albuterol sulfate 90 mcg/actuation HFA aerosol inhaler 2 puff INHALATION Q6H PRN (Reason: shortness of breath or wheezing) prednisone 20 mg Tablet 40 mg PO DAILY@0800 3 Days Qty: 6 0RF benzonatate 100 mg Capsule 100 mg PO TID PRN (Reason: Cough) Qty: 30 0RF guaifenesin [Mucus Relief ER] 600 mg Tablet Extended Release 12hr 600 mg PO Q12HR Qty: 30 0RF azithromycin 250 mg tablet 250 mg PO DAILY 120 Days Qty: 3 0RF calcium 100 mg Capsule 100 mg PO DAILY Trelegy Ellipta 100-62.5-25 mcg blister with device 1 inh inhalation QAM Qty: 60 11RF Rx Instructions: rinse and spit albuterol sulfate 1.25 mg/3 mL solution for nebulization 1.25 mg inhalation Q6H PRN (Reason: shortness of breath or wheezing) Qty: 360 2RF Brilinta 90 mg tablet 90 mg PO Q12HR Qty: 180 2RF Ohtuvayre 3 mg/2.5 mL suspension for nebulization 2.5 ml inhalation QAM AND QPM Qty: 150 5RF Rx Instructions: This will replace Daliresp (roflumilast) carvedilol 6.25 mg tablet See Rx Instructions .ROUTE .COMPLEX Qty: 60 5RF Dose Instruction: TAKE 1 TABLET BY MOUTH EVERY 12 HOURS Rx Instructions: TAKE 1 TABLET BY MOUTH EVERY 12 HOURS atorvastatin 80 mg tablet See Rx Instructions .ROUTE .COMPLEX Qty: 30 0RF Dose Instruction: TAKE 1 TABLET BY MOUTH AT BEDTIME Rx Instructions: TAKE 1 TABLET BY MOUTH AT BEDTIME Follow-up/Referrals: Dieudonne Posada MD [Primary Care Provider] -
--- NOTE | 2024-12-18 17:06 | ECG_ITS ---
Test Date: 2024-12-18 17:09:54 Measurements Intervals [place] Rate: 111 P: 53 [place]: 167 QRS: 72 QRSD: 78 T: 77 QT: 302 QTc: 412 Interpretive Statements SINUS TACHYCARDIA POSSIBLE LEFT ATRIAL ENLARGEMENT [-0.1mV P-WAVE IN V1/V2] POSSIBLE RIGHT VENTRICULAR CONDUCTION DELAY [RSR (QR) IN V1/V2] ABNORMAL RHYTHM ECG Compared to ECG 12/13/2024 13:35:35 No significant changes Electronically Signed On 12-19-2024 07:10:31 CDT by Isadora Ruvalcaba M.D.
[2024-12-18 17:07] LABS: Alveolar/Arterial O2 Gradient 138.9 mmHg; Fractional Inspired Oxygen 40 %; HCO3 ABG 23.1 mEq/l (22.0-26.0); Modified Allen's Test Pass; Oxygen Content ABG 22.7 %vol (16.0-22.0); Oxygen Saturation ABG 96.5 % (95.0-100.0); PCO2 ABG 46.3 mmHg (35.0-45.0); PO2 ABG 93.1 mmHg (80.0-100.0); PO2 FiO2 Ratio Arterial Blood 2.33 %; Site Drawn LEFT RADIAL
[2024-12-18 17:08] LABS: Non-Invasive Expiratory Pressure 5 CMH2O; Non-Invasive Inspiratory Pressure 20 CMH2O; Non-Invasive Vent Rate 20 /MIN
[2024-12-18] MEDS: ALBUTEROL SULFATE NEB 2.5 MG/3 ML INH 10 MG INHALATION (17:10)
[2024-12-18 17:12] LABS: Hematocrit 46.9 % (42.0-52.0); Hemoglobin 16.2 g/dL (14.0-18.0); Immature Granulocyte Percent A 1.2 % (0-0.5); Lymphocytes Absolute Auto 1.16 K/mm3 (0.9-3.2); Mean Corpuscular HGB Conc 34.5 g/dl (32-36); Mean Corpuscular Hemoglobin 32.3 pg (26-34); Mean Corpuscular Volume 93.6 fl (80-100); Nucleated Red Blood Cells Absolute Auto 0.000 K/mm3 (0.0-0.012); Nucleated Red Blood Cells Perc 0.0 % (0.0-0.2); Platelet Count Result 335 k/mm3 (150-375); Red Blood Count 5.01 M/mm3 (4.6-6.20); White Blood Count 11.2 K/mm3 (4.5-10.0)
[2024-12-18 17:25] LABS: INR 0.9; Prothrombin Time 12.4 Seconds (11.1-14.7)
[2024-12-18 17:26] LABS: Partial Thromboplastin Time 27.7 Seconds (22.3-36.8)
[2024-12-18 17:33] LABS: Alanine Aminotransferase 25 U/L (6-50); Albumin Level 4.5 g/dL (3.5-5.1); Alkaline Phosphatase 95 U/L (38-126); Anion Gap 11 mmol/L (4-12); Aspartate Amino Transferase 36 U/L (17-59); Bilirubin,Total 0.7 mg/dL (0.2-1.3); Blood Urea Nitrogen 18 mg/dL (9-20); Calcium 8.8 mg/dL (8.4-10.2); Carbon Dioxide 23 mmol/L (22-30); Chloride 98 mmol/L (98-107); Estimated CRCL calculation 89 ml/min; Estimated Glomerular Filt Rate > 60; Glucose 278 mg/dL (65-110); Magnesium 2.5 mg/dL (1.6-2.3); Potassium 4.6 mmol/L (3.4-5.0); Sodium 132 mmol/L (137-145); Total Protein 8.0 g/dL (6.3-8.2)
--- OUTSIDE RECORDS SUMMARY | 2024-12-18 17:33 | XMS_ITS | Clinical Summary ---
Author Organization [facility] Address [address] [place] [address] Care Team Providers Care Engineering Faculty Name Role Phone Ivette Barba APRN-WAREHOUSE LOADER Primary Care Provider Source Comments [facility],non-owned Affiliates and Associated Physician Practices is amultiple site organization consisting of ambulatory clinics and hospital sitesin [place], [place], [place] and [place]. This disclosure is being madepursuant to the Care Everywhere program and may not contain all information available regarding this patient. Last updated 03/01/18.51 [facility] Allergies No known active allergies Medications * [...] on file Legal Sex Male 12:54 PM HAIRSPRING STAKER Gender Identity Not on file Sexual Orientation [...] to complete this topic Insurance [facility] Care Teams Engineering Faculty Relationship Specialty Start Date End Date Ivette Barba, TUNG NUT GROWER-WAREHOUSE LOADER [address] [place] [address] PCP - General 11/10/21
--- OUTSIDE RECORDS SUMMARY | 2024-12-18 17:33 | XMS_ITS | Clinical Summary ---
Author Organization [facility] Address [address] [facility] [place] [address] Phone Care Team Providers Care Satellite Tv Technician Name Role Phone Ivette Barba APRN, OVERLOCK COLLAR SETTER Primary Care Pro vider Allergies No known active allergies Medications buPROPion, Smoking Deter, (ZYBAN) 150 MG TABLET SR 12 HR Take 150 mg by mouth 2 times daily. Active diazePAM (VALIUM) 5 MG Tablet Take 5 mg by mouth every 8 hours as needed. Active famotidine (PEPCID) 20 MG Tablet Take 20 mg by mouth 2 times daily. Active [place]-3 Fatty Acids (FISH OIL PO) Take by [...] Comments Blood Pressure 120/70 06/27/2021 1:33 PM LAUNDRY TUB MAKER Pulse 66 06/27/2021 1:33 PM LAUNDRY TUB MAKER Temperature 36.6 C (97.9 F) 06/27/2021 1:33 PM LAUNDRY TUB MAKER Respiratory Rate 16 06/27/2021 1:33 PM LAUNDRY TUB MAKER Oxygen Saturation 97% 06/27/2021 1:33 PM LAUNDRY TUB MAKER Inhaled Oxygen Concentration - - Weight 78.1 kg (172 lb 1.6 oz) 06/27/2021 1:33 P M LAUNDRY TUB MAKER Height 180.3 cm (5' 11) 06/27/2021 1:33 PM LAUNDRY TUB MAKER Body Mass Index 24 06/27/2021 1:33 PM LAUNDRY TUB MAKER Plan of Treatment Health Maintenance Due Date [...] age to complete this topic Insurance MEDICAID [place] Care Teams Satellite Tv Technician Relationship Specialty Start Date End Date Ivette Barba, CRYSTALLIZER OPERATOR, OVERLOCK COLLAR SETTER [address] [place], [place] [id number] PCP - General Certified Nurse Practitioner 06/09/21
[2024-12-18 17:45] LABS: NT Pro B Type Natriuretic Pept 307 pg/mL (19.9-100); Troponin I < 0.012 ng/mL (0.000-0.034)
[2024-12-18] MEDS: levoFLOXacin 750 MG/D5W 150 ML 750 MG/150 ML BAG 100 MG IVPB (18:22)
--- NOTE | 2024-12-18 19:30 | PM.IMHP ---
H&P: HPI History of Present Illness Date/Time: 12/18/24 23:15 Chief Complaint: Shortness of breath. Narrative: This is a 64-year-old male with chronic obstructive pulmonary disease, emphysema, ischemic cardiomyopathy with an EF as low as 30 to 35% though it has since normalized, diastolic dysfunction, coronary artery disease with history of stents to the ED LM into LAD and proximal to mid LAD, mitral valve regurgitation, hypertension, hyperlipidemia, gastroesophageal reflux disease, depression, and anxiety who presented to the emergency department via EMS with complaints of shortness of breath. He is known to the hospitalist service from an admission just 5 days ago in which he with shortness of breath and hypoxia for which he was treated with antibiotics, steroids, and diuretics to cover possible pneumonia, COPD, and CHF. He was discharged on azithromycin for 3 more days of which he has completed although he continues to have a productive cough productive of pulliam colored sputum, occasionally admixed with a small amount of bright red blood. Overall he is still not feeling well and his breathing is worse than his baseline. He has to stop to rest more frequently than usual. He has been using oxygen 2 L at nighttime as ordered and he has been diligent about monitoring his pulse ox which has been as low as 90% on his watch. Today he was out running errands and he reports getting increasingly short of breath although he was not exerting himself much. Rescue inhaler helped somewhat however not long prior to arrival his shortness of breath became acutely worse and he called 911. On EMS arrival his SpO2 was reportedly 65% and he was noted to be cool and clammy. He was placed on CPAP and was administered a nebulizer treatment and magnesium sulfate en route to the hospital. At the time my evaluation he feels much better and has no current complaints. He denies fever, headache, sore throat, chest pain, pleuritic pain, palpitations, orthopnea, lower extremity edema, calf pain, nausea, vomiting, diarrhea, dysphagia, and concerns for aspiration. In the ED: He was afebrile on arrival with a blood pressure 152/78, pulse 116, respiratory rate 26, SpO2 95% on CPAP. Labs were significant for WBC count of 11.2, sodium 132, glucose 278, proBNP 307, troponin less than 0.012. ABG showed a pH of 7.315, pCO2 46.3, PO2 93.1, HC03 23.1. Chest x-ray showed bilateral basal pneumonia and underlying pulmonary edema versus pneumonitis. EKG showed sinus tachycardia without concerning ST segment changes. CPAP was transitioned to BiPAP. He was given albuterol 10 mg, methylprednisolone 125 mg IV, and levofloxacin 750 mg. He is being admitted in this setting for further treatment. Review of Systems Review of Systems: 12 systems were reviewed and are negative except for as per HPI. [facility] Past Medical History Medical History Ischemic cardiomyopathy EF is low as 30 to 35% in June 2023; improved to 60 to 65% on echo obtained in August 2023. Mitral valve regurgitation COPD with emphysema Coronary artery disease Non-STEMI (non-ST elevated myocardial infarction) Pneumonia Hypertension Chronic hyponatremia Thoracic compression fracture Gastroesophageal reflux disease Osteoporosis Heavy alcohol use Anxiety and depression has previously undergone ECT treatments Hypercholesteremia Former smoker Surgical History Surgical History History of cataract extraction History of coronary artery stent placement (06/2023) stents to the LM into LAD and proximal to mid LAD History of tonsillectomy Family History Family History Father Aneurysm Grandparent Black lung Social History Social History Social History: Surrogate medical decision maker: Valeriano Laguna, sibling. Code status: Modified code, no intubation. Smoking packs per day: 1.5 Smoking cigarettes per day: 30.0 Years smoked: 42 Smoking pack-years: 63.00 Smoking status: Former smoker Tobacco type: cigarettes Second hand tobacco smoke exposure: No Smoking end date: 06/11/19 Alcohol intake: current Drinks per week: 6 Alcohol use details: wine Substance use: current Substance use type: marijuana Last use: Sunday Do You Feel Safe in your Home?: Yes Lack of Transportation: No Lack of Food: Never True Current Housing: I Have Housing Concerned About Future Housing: No Difficulty Paying Gas/Electric Bills: No Difficulty Paying for Meds: No Currently Unemployed: No Education: Master's Degree or Higher Difficulty w/ Childcare or Family Care: No Living arrangements: alone Additional living arrangements comments: Lives alone in [place]. 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 Spiritual care concerns: No Meds Home Medications and Allergies Home Medications ?Medication ?Instructions ?Recorded ?Confirmed ?Type trazodone 100 mg tablet 100 mg PO HS 11/10/22 12/18/24 History aspirin 81 mg tablet,delayed 81 mg PO DAILY@0800 #90 tabs 06/19/23 12/18/24 Rx release calcium 100 mg capsule 100 mg PO DAILY 06/19/23 12/18/24 History losartan 25 mg tablet 12.5 mg (1/2 x 25 mg) PO DAILY #90 11/21/23 12/18/24 Rx tabs Trelegy Ellipta 100 mcg-62.5 1 inh inhalation QAM #60 ea 03/06/24 12/18/24 Rx mcg-25 mcg powder for inhalation (ievetpzxhsd-loghvyauw-hofpoekr) multivitamin (Daily Multi-Vitamin 1 tablet PO DAILY 03/13/24 12/18/24 History tablet) albuterol sulfate 1.25 mg/3 mL 1.25 mg (3 mL) inhalation Q6H PRN 07/31/24 12/18/24 Rx solution for nebulization shortness of breath or wheezing #360 mL alendronate 70 mg tablet 70 mg PO WEEKLY #12 tabs 09/08/24 12/18/24 Rx aripiprazole 2 mg tablet 2 mg PO DAILY 09/08/24 12/18/24 History omeprazole 20 mg capsule,delayed 20 mg PO DAILY #90 caps 09/08/24 12/18/24 Rx release vitamin B complex-folic acid 0.4 1 tablet PO DAILY 09/08/24 12/18/24 History mg tablet (B Complex 1 (with folic acid)) ticagrelor 90 mg tablet (Brilinta) 90 mg PO Q12HR #180 tabs 09/24/24 12/18/24 Rx ensifentrine 3 mg/2.5 mL 2.5 ml inhalation QAM AND QPM #150 10/29/24 12/18/24 Rx suspension for nebulization mL (Ohtuvayre) furosemide 20 mg tablet 20 mg PO QAM #30 tabs 11/19/24 12/18/24 Rx carvedilol 6.25 mg tablet See Rx Instructions .Route 11/26/24 12/18/24 Rx .COMPLEX #60 tabs albuterol sulfate 90 mcg/actuation 2 puff inhalation Q6H PRN 12/13/24 12/18/24 History aerosol inhaler shortness of breath or wheezing cholecalciferol (vitamin D3) 125 5,000 unit PO DAILY 12/13/24 12/18/24 History mcg (5,000 unit) capsule benzonatate 100 mg capsule 100 mg PO TID PRN Cough #30 caps 12/15/24 12/18/24 Rx guaifenesin 600 mg tablet, 600 mg PO Q12HR #30 tabs 12/15/24 12/18/24 Rx extended release 12 hr (Mucus Relief ER) atorvastatin 80 mg tablet See Rx Instructions .Route 12/16/24 12/18/24 Rx .COMPLEX #30 tabs Allergies Allergy/AdvReac Type Severity Reaction Status Date / Time No Known Allergies Allergy Verified 12/18/24 17:16 Vital Signs Vital Signs - 24 hr 12/18/24 16:50 12/18/24 16:58 12/18/24 17:00 Temperature 97.6 F Pulse Rate 116 H 107 H Respiratory Rate 26 H 25 H Blood Pressure 152/78 H Pulse Oximetry 95 95 97 Oxygen Delivery BiPAP BiPAP BiPAP 12/18/24 17:10 12/18/24 17:12 12/18/24 17:12 Temperature Pulse Rate 107 H 105 H Respiratory Rate 25 H Blood Pressure Pulse Oximetry 99 Oxygen Delivery BiPAP 12/18/24 17:13 12/18/24 18:24 Temperature Pulse Rate 105 H 99 Respiratory Rate 19 20 Blood Pressure 127/99 H 111/88 Pulse Oximetry 99 97 Oxygen Delivery Exam Narrative: General: Nontoxic-appearing male sitting up in bed in no acute distress. Weight: 70 kg. BMI: 24.0. HEENT: PERRL, EOMI. Sclera anicteric. Oral mucosa moist. Oropharynx clear. Neck: Supple. No JVD. Respiratory: Respirations are nonlabored he is speaking in full sentences. Currently on 2 L nasal cannula with an SpO2 of 96%. Lung sounds are a bit diminished throughout with faint crackles at the bases. Cardiovascular: Regular rate and rhythm with S1-S2. Soft systolic murmur at the apex. Gastrointestinal: Abdomen is soft, nontender, and nondistended with positive bowel sounds. Skin: Warm and dry. No rash or lesions on limited exam. Extremities: No cyanosis, clubbing, or edema. Radial and pedal pulses intact. Neurological: Alert. Cranial nerves 2-12 are grossly intact. No gross focal deficits to casual conversation. Psychiatric: Pleasant and cooperative with normal mood and affect. Judgment and insight intact. H&P: Results Labs Labs: Short CBC 12/18/24 Range/Units 17:07 WBC 11.2 H (4.5-10.0) K/mm3 Hgb 16.2 D (14.0-18.0) g/dL Hct 46.9 (42.0-52.0) % Plt Count 335 D (150-375) k/mm3 BMP 12/18/24 17:07 Sodium 132 L Potassium 4.6 Chloride 98 Carbon Dioxide 23 BUN 18 Creatinine 0.80 Glucose 278 H Calcium 8.8 Cardiac Enzymes 12/18/24 Range/Units 17:07 Troponin I < 0.012 (0.000-0.034) ng/mL Liver Function 12/18/24 Range/Units 17:07 Total Bilirubin 0.7 (0.2-1.3) mg/dL AST 36 (17-59) U/L ALT 25 (6-50) U/L Alkaline Phosphatase 95 (38-126) U/L Albumin 4.5 (3.5-5.1) g/dL Imaging Chest X-Ray 12/18/24 17:31 IMPRESSION: Bilateral basal pneumonia. Underlying pulmonary edema versus pneumonitis. Assessment and Plan Assessment and plan (1) Acute respiratory failure with hypoxia and hypercapnia: Code(s): J96.01 - Acute respiratory failure with hypoxia; J96.02 - Acute respiratory failure with hypercapnia Status: Acute (2) Pneumonia: Code(s): J18.9 - Pneumonia, unspecified organism Status: Acute (3) COPD with emphysema: Code(s): J43.9 - Emphysema, unspecified Status: Acute (4) Diastolic dysfunction: Code(s): I51.89 - Other ill-defined heart diseases Status: Chronic (5) Ischemic cardiomyopathy: Code(s): I25.5 - Ischemic cardiomyopathy Status: Acute (6) Mitral valve regurgitation: Code(s): I34.0 - Nonrheumatic mitral (valve) insufficiency Status: Acute (7) Hyperglycemia: Code(s): R73.9 - Hyperglycemia, unspecified Status: Acute (8) Hypertension: Qualifiers: Hypertension type: primary hypertension Qualified Code(s): I10 - Essential (primary) hypertension Code(s): I10 - Essential (primary) hypertension Status: Chronic (9) Coronary artery disease: Code(s): I25.10 - Atherosclerotic heart disease of [place] coronary artery without angina pectoris Status: Acute Plan The patient presented to the emergency department for evaluation of ongoing productive cough occasionally admixed with a small amount of blood in addition to worsening shortness of breath from baseline as detailed in HPI. Labs, imaging, EKG, and all reports were personally reviewed. Chest x-ray continues to show bibasilar infiltrates concerning for pneumonia and given his generalized malaise and productive cough, he has been started on levofloxacin. Sputum to be sent for culture. I wonder if perhaps he had some mucus plugging leading to the acute worsening in shortness of breath as he improved after coughing up a decent amount of sputum. Continue scheduled bronchodilators. Mucinex and Cornet ordered to mobilize secretions. There is no significant wheezing on exam to suggest COPD exacerbation and he does not appear volume overloaded. He is doing just fine without the BiPAP at this time. Random glucose was 278, likely related to methylprednisolone, though will check a fasting glucose and hemoglobin A1c. Blood pressures were reviewed and they have been stable and will be monitored daily. No acute issues with regards to coronary artery disease however given increasing issues with shortness of breath recently, will obtain a limited echocardiogram to look at his EF. His home medications will be reviewed and resumed as appropriate. Findings and treatment plan were discussed with the patient. Questions were solicited and answered to satisfaction. The patient's medical management will be taken over by the hospitalist team in a.m. Quality VTE Prophylaxis VTE prophylaxis: mechanical ordered If No VTE Prophylaxis Answer both mechanical and pharmacologic: Reason no pharmacologic proph: medical contraindication (patient on dual anti-platelet therapy, pharmacologic prophylaxis would put him at increased risk for bleeding) Hospitalist MIPS Advance Care Plan I have confirmed that the patient's Advanced Care Plan is present, code status is documented, or surrogate decision maker is listed in patient medical record.: Yes Medication Reconciliation I have utilized all available resources to obtain, update and review the patients current medications (includes all prescriptions, OTC, herbals, cannabis, and nutritional supplements).: Yes
--- NOTE | 2024-12-18 19:40 | PC.NURSE ---
Received report from REYES Sam for cont. of care. Pt lying on stretcher on BiPAP with oxygen saturation at 100%, VS WNL Pt AOx4, denies SOB at this time.
[2024-12-18 21:42] LABS: Hemoglobin A1C 5.1 % (<5.7)
--- NOTE | 2024-12-18 21:42 | ADMGEN ---
This patient, Edgar Laguna, was admitted to IMU Room 207-01. Patient/family oriented to hospital policies and general routines including ID bracelet, bed and alarms, visiting hours, pain management, procedures, bathroom and other care routines, personal items, smoking policy, room service/diet, and visiting hours. Information on how to activate the Rapid Response Team has been discussed. Patient/Family are encouraged to report perceived risks to care and to ask questions if they do not understand what they are told or what they should do.
[2024-12-18 21:58] LABS: Procalcitonin 0.1 ng/mL
[2024-12-18 23:19] LABS: Influenza A QL RT-PCR Negative (Negative); Influenza B QL RT-PCR Negative (Negative); SARS-CoV-2 RNA PCR Negative (Negative)
[2024-12-18 23:53] LABS: MRSA (PCR) NOT DETECTED (NOT DETECTE)
[2024-12-19] VITALS (20 sets, daily range): BP systolic 104–130; BP diastolic 66–86; PULSE 70–103; RESP 12–22; TEMP 36.3–37; O2SAT 91–96
--- NOTE | 2024-12-19 | ECHO_ITS ---
Patient Info Name: Edgar Laguna Age: 64 years : 1960 Gender: Male Ht: 71 in Wt: 173 lbs BSA: 1.99 m2 HR: 72 bpm BP: 104 / 71 mmHg Technical Quality: Poor Exam Date: 12/19/2024 1:57 PM Patient Status: I Admit Date: 12/18/2024 Exam Type: CA echo limited w contrast Limited two-dimensional transthoracic echocardiogram is performed with contrast. Staff Referring Physician: Maryann Haynes III [employer]: Anna London Attending Provider: Heather Hale Contrast/Agitated Saline Contrast/Ag. Saline: Definity Amount: 2.00 ml Administered By: Anna London Reason for Poor Study: poor echocardiographic windows Summary 1. No parasternal short axis views. 2. Definity contrast administered improved wall motion interpretation. 3. Left ventricular chamber dimension is normal. 4. Left ventricular systolic function is normal, estimated at 60-65. 5. The left ventricular diastolic function is grade I diastolic dysfunction. 6. E/e' 11 is mildly elevated. 7. Left atrial chamber dimension is mildly enlarged. 8. The aortic valve is not well visualized. Cannot determine number of aortic valve leaflets. 9. The mitral valve has mildly calcified leaflets. 10. There is moderate to severe mitral valve regurgitation. Left Ventricle E/e' 11 is mildly elevated. Left ventricular chamber dimension is normal. Left ventricular systolic function is normal, estimated at 60-65. The left ventricular diastolic function is grade I diastolic dysfunction. Definity contrast administered improved wall motion interpretation. No parasternal short axis views. Right Ventricle Right ventricular chamber dimension is normal. Right ventricular systolic function is normal. Left Atria Left atrial chamber dimension is mildly enlarged. Right Atria Right atrial chamber dimension is normal. Aortic Valve The aortic valve is not well visualized. Cannot determine number of aortic valve leaflets. There is no aortic valve stenosis. There is no aortic valve regurgitation. Pulmonic Valve The pulmonic valve is not well visualized. Mitral Valve The mitral valve has mildly calcified leaflets. There is no mitral valve stenosis. There is moderate to severe mitral valve regurgitation. Tricuspid Valve There is no tricuspid valve regurgitation. Pericardium/Pleural There is no pericardial effusion. Inferior Vena Cava Inferior vena cava is not well visualized. Aorta The aortic root size at the sinus of Valsalva is normal. Left Ventricular Outflow Tract Name Value Normal LVOT 2D LVOT Diameter 2.2 cm LVOT Doppler LVOT Peak Velocity 101 cm/s LVOT Peak Gradient 4 mmHg LVOT Mean Gradient 2 mmHg LVOT VTI 27 cm LVOT Stroke Volume 105 ml LVOT CO 7.5 l/min LVOT CI 3.8 l/min/m2 Mitral Valve Name Value Normal MV Regurgitation Doppler MR Peak Gradient 110 mmHg MV Diastolic Function MV E Peak Velocity 78 cm/s MV A Peak Velocity 93 cm/s MV E/A 0.8 MV Decel Time (PW) 269 ms MV Annular TDI MV E/e' (Septal) 13.0 MV E/e' (Lateral) 10.6 MV E/e' (Average) 11.8 Tricuspid Valve Name Value Normal Estimated PAP/RSVP RA Pressure 5 mmHg <=5 Aortic Valve Name Value Normal AV Doppler AV Peak Velocity 110 cm/s AV Peak Gradient 5 mmHg AV Area (Cont Eq Omid) 3.5 cm2 AV DI (Omid) 0.92 AV Regurgitation 2D LVOT Area 3.8 cm2 Ventricles Name Value Normal LV Dimensions 2D/MM LVOT Diameter 2.2 cm LV Fractional Shortening/Ejection Fraction 2D/MM LV Diastolic Volume (4C MOD) 105 ml LV EF (4C MOD) 65 % LV Diastolic Volume (2C MOD) 104 ml LV EF (2C MOD) 61 % LV Diastolic Volume (BP MOD) 105 ml 62-150 LV Diastolic Volume Index (BP MOD) 53 ml/m2 34-74 LV Systolic Volume (BP MOD) 38 ml 21-61 LV Systolic Volume Index (BP MOD) 19 ml/m2 11-31 LV EF (BP MOD) 64 % 52-72 LV Diastolic Length (4C) 9.2 cm LV Systolic Length (4C) 7.6 cm LV Stroke Volume (4C MOD) 68 ml Report Signatures
[2024-12-19] MEDS: IPRATROPIUM 0.5 MG/ALBUTEROL SULFATE 2.5 MG AMPUL.NEB 3 ML INHALATION ×4 (02:42→23:50)
[2024-12-19 04:28] LABS: Hematocrit 38.3 % (42.0-52.0); Hemoglobin 13.2 g/dL (14.0-18.0); Mean Corpuscular HGB Conc 34.5 g/dl (32-36); Mean Corpuscular Hemoglobin 32.7 pg (26-34); Mean Corpuscular Volume 94.8 fl (80-100); Platelet Count Result 239 k/mm3 (150-375); Red Blood Count 4.04 M/mm3 (4.6-6.20); White Blood Count 6.8 K/mm3 (4.5-10.0)
[2024-12-19 04:38] LABS: Anion Gap 10 mmol/L (4-12); Blood Urea Nitrogen 15 mg/dL (9-20); CRP < 0.5 mg/dL (<1.0); Calcium 8.8 mg/dL (8.4-10.2); Carbon Dioxide 25 mmol/L (22-30); Chloride 99 mmol/L (98-107); Estimated CRCL calculation 105 ml/min; Estimated Glomerular Filt Rate > 60; Glucose 127 mg/dL (65-110); Magnesium 2.2 mg/dL (1.6-2.3); Potassium 4.2 mmol/L (3.4-5.0); Sodium 134 mmol/L (137-145)
[2024-12-19 06:49] LABS: Alveolar/Arterial O2 Gradient 55.0 mmHg; Carboxyhemoglobin 0.6 % THb (0-2.0); Fractional Inspired Oxygen 24 %; HCO3 ABG 26.1 mEq/l (22.0-26.0); Methemoglobin ABG 0.1 %THb (0-1.5); Oxygen Content ABG 18.2 %vol (16.0-22.0); Oxygen Saturation ABG 94.4 % (95.0-100.0); PCO2 ABG 39.6 mmHg (35.0-45.0); PO2 ABG 69.0 mmHg (80.0-100.0); PO2 FiO2 Ratio Arterial Blood 2.88 %; Reduced Hemoglobin 6.1 %THb (0-5.0)
[2024-12-19 06:53] LABS: Liters per Minute 1.0 LPM; Modified Allen's Test Pass; Site Drawn RIGHT RADIAL
[2024-12-19] MEDS: FLUTICASONE/UMECLIDIN/VILANTER 100-62.5-25 MCG ELLIPTA 1 PUFF INHALATION (07:57)
--- NOTE | 2024-12-19 08:22 | PM.IMPN ---
Progress Note: A&P Assessment and Plan (1) Acute respiratory failure with hypoxia and hypercapnia: Code(s): J96.01 - Acute respiratory failure with hypoxia; J96.02 - Acute respiratory failure with hypercapnia Status: Acute (2) Pneumonia: Code(s): J18.9 - Pneumonia, unspecified organism Status: Acute (3) COPD with emphysema: Code(s): J43.9 - Emphysema, unspecified Status: Acute (4) Diastolic dysfunction: Code(s): I51.89 - Other ill-defined heart diseases Status: Chronic (5) Ischemic cardiomyopathy: Code(s): I25.5 - Ischemic cardiomyopathy Status: Acute (6) Mitral valve regurgitation: Code(s): I34.0 - Nonrheumatic mitral (valve) insufficiency Status: Acute (7) Hyperglycemia: Code(s): R73.9 - Hyperglycemia, unspecified Status: Acute (8) Hypertension: Qualifiers: Hypertension type: primary hypertension Qualified Code(s): I10 - Essential (primary) hypertension Code(s): I10 - Essential (primary) hypertension Status: Chronic (9) Coronary artery disease: Code(s): I25.10 - Atherosclerotic heart disease of [place] coronary artery without angina pectoris Status: Acute Plan This is a 64-year-old male with chronic obstructive pulmonary disease, emphysema, ischemic cardiomyopathy with an EF as low as 30 to 35% though it has since normalized, diastolic dysfunction, coronary artery disease with history of stents to the ED LM into LAD and proximal to mid LAD, mitral valve regurgitation, hypertension, hyperlipidemia, gastroesophageal reflux disease, depression, and anxiety who presented to the emergency department via EMS with complaints of shortness of breath. He is known to the hospitalist service from an admission just 5 days ago in which he with shortness of breath and hypoxia for which he was treated with antibiotics, steroids, and diuretics to cover possible pneumonia, COPD, and CHF. He was discharged on azithromycin for 3 more days of which he has completed although he continues to have a productive cough productive of pulliam colored sputum, occasionally admixed with a small amount of bright red blood. Overall he is still not feeling well and his breathing is worse than his baseline. He has to stop to rest more frequently than usual. He has been using oxygen 2 L at nighttime as ordered and he has been diligent about monitoring his pulse ox which has been as low as 90% on his watch. Today he was out running errands and he reports getting increasingly short of breath although he was not exerting himself much. Rescue inhaler helped somewhat however not long prior to arrival his shortness of breath became acutely worse and he called 911. On EMS arrival his SpO2 was reportedly 65% and he was noted to be cool and clammy. He was placed on CPAP and was administered a nebulizer treatment and magnesium sulfate en route to the hospital. In the ED: He was afebrile on arrival with a blood pressure 152/78, pulse 116, respiratory rate 26, SpO2 95% on CPAP. Labs were significant for WBC count of 11.2, sodium 132, glucose 278, proBNP 307, troponin less than 0.012. ABG showed a pH of 7.315, pCO2 46.3, PO2 93.1, HC03 23.1. Chest x-ray showed bilateral basal pneumonia and underlying pulmonary edema versus pneumonitis. EKG showed sinus tachycardia without concerning ST segment changes. CPAP was transitioned to BiPAP. He was given albuterol 10 mg, methylprednisolone 125 mg IV, and levofloxacin 750 mg. He is being admitted in this setting for further treatment. BiPAP has since then been removed. Acute hypoxic respiratory failure on oxygen via nasal cannula along with requirement of BiPAP upon arrival to the ED. chest x-ray with findings of bilateral basal pneumonia. COPD exacerbation continue scheduled bronchodilators. Did receive a dose of methylprednisolone in the ER. Not currently wheezing. Will hold off on any further steroids. bilateral basal pneumonia currently on Levaquin will continue that. Get sputum culture. Recent respiratory pathogen panel was negative. Ischemic cardiomyopathy ejection fraction low as 30-35% since since then resolved with diastolic dysfunction. Will repeat echo. Will consult Cardiology Coronary artery disease with history of stents mitral valve regurgitation hypertension hyperlipidemia GERD Anxiety depression DVT prophylaxis Lovenox Code status modified code Subjective Date/time seen: 12/19/24 08:22 Interval history: Breathing is better but still not back to usual. No leg swelling. Cough with some blood. Review of Systems Review of Systems: All systems reviewed & are unremarkable except as noted in HPI and below Exam Narrative: General: Nontoxic-appearing male sitting up in bed in no acute distress. HEENT: PERRL, EOMI. Sclera anicteric. Oral mucosa moist. Oropharynx clear. Neck: Supple. No JVD. Respiratory: Respirations are nonlabored he is speaking in full sentences. Currently on 2 L nasal cannula with an SpO2 of 96%. Lung sounds diminished bilaterally Cardiovascular: Regular rate and rhythm with S1-S2. Soft systolic murmur at the apex. Gastrointestinal: Abdomen is soft, nontender, and nondistended with positive bowel sounds. Skin: Warm and dry. No rash or lesions on limited exam. Extremities: No cyanosis, clubbing, or edema. Radial and pedal pulses intact. Neurological: Alert. Cranial nerves 2-12 are grossly intact. No gross focal deficits to casual conversation. Psychiatric: Pleasant and cooperative with normal mood and affect. Judgment and insight intact. Objective Data Vital Signs Vital Signs: Vital Signs - 24 hr 12/18/24 16:50 12/18/24 16:58 12/18/24 17:00 Temperature 97.6 F Pulse Rate 116 H 107 H Respiratory Rate 26 H 25 H Blood Pressure 152/78 H Pulse Oximetry 95 95 97 Oxygen Delivery BiPAP BiPAP BiPAP Oxygen Flow Rate Fraction of Inspired Oxygen 12/18/24 17:10 12/18/24 17:12 12/18/24 17:12 Temperature Pulse Rate 107 H 105 H Respiratory Rate 25 H Blood Pressure Pulse Oximetry 99 Oxygen Delivery BiPAP Oxygen Flow Rate Fraction of Inspired Oxygen 12/18/24 17:13 12/18/24 18:24 12/18/24 20:15 Temperature 98.1 F Pulse Rate 105 H 99 91 Respiratory Rate 19 20 18 Blood Pressure 127/99 H 111/88 Pulse Oximetry 99 97 99 Oxygen Delivery Oxygen Flow Rate Fraction of Inspired Oxygen 12/18/24 20:30 12/18/24 21:10 12/18/24 21:40 Temperature Pulse Rate 90 88 89 Respiratory Rate 19 20 25 H Blood Pressure 104/83 Pulse Oximetry 99 99 92 Oxygen Delivery BiPAP BiPAP Oxygen Flow Rate Fraction of Inspired Oxygen 12/18/24 21:40 12/18/24 21:58 12/18/24 22:00 Temperature 97.9 F Pulse Rate 89 87 Respiratory Rate 20 Blood Pressure 110/66 Pulse Oximetry 92 97 Oxygen Delivery BiPAP Oxygen Flow Rate Fraction of Inspired Oxygen 30 12/18/24 22:52 12/18/24 23:55 12/19/24 00:00 Temperature 97.8 F Pulse Rate 83 83 Respiratory Rate 20 Blood Pressure 112/68 Pulse Oximetry 92 96 91 Oxygen Delivery BiPAP Nasal Cannula Oxygen Flow Rate 2 Fraction of Inspired Oxygen 12/19/24 00:00 12/19/24 02:00 12/19/24 02:43 Temperature Pulse Rate 79 75 77 Respiratory Rate 20 Blood Pressure Pulse Oximetry Oxygen Delivery Oxygen Flow Rate Fraction of Inspired Oxygen 12/19/24 03:51 12/19/24 04:00 12/19/24 04:00 Temperature 97.8 F Pulse Rate 81 77 87 Respiratory Rate 20 Blood Pressure 104/71 Pulse Oximetry 93 93 Oxygen Delivery Nasal Cannula Oxygen Flow Rate 2 Fraction of Inspired Oxygen 12/19/24 06:00 12/19/24 07:57 12/19/24 07:57 Temperature Pulse Rate 87 80 Respiratory Rate 20 Blood Pressure Pulse Oximetry 94 Oxygen Delivery Nasal Cannula Oxygen Flow Rate 1 Fraction of Inspired Oxygen 12/19/24 08:00 12/19/24 08:09 Temperature 97.3 F L Pulse Rate 75 84 Respiratory Rate 18 20 Blood Pressure 109/75 Pulse Oximetry 96 Oxygen Delivery Oxygen Flow Rate Fraction of Inspired Oxygen Intake/Output Intake/Output: Intake & Output 12/16/24 12/17/24 12/18/24 12/19/24 23:59 23:59 23:59 23:59 Intake Total 150 250 Output Total 350 300 Balance -200 -50 Meds/Results Medications: Active Medications Generic Name Dose Route Start Last Admin Trade Name Freq PRN Reason Stop Dose Admin Acetaminophen 650 mg 12/18/24 21:16 Acetaminophen 325 Mg Tablet PO Q6H PRN Mild Pain (1-3) or Fever Albuterol/Ipratropium 3 ml 12/18/24 20:00 12/19/24 07:57 Ipratropium 0.5 Mg/Albuterol Sulfate 2.5 Mg Ampul.Neb 3 Ml INHALATION 3 ml Q6HRT [facility] Administration Aripiprazole 2 mg 12/19/24 09:00 Aripiprazole 2 Mg Tablet PO DAILY [facility] Aspirin 81 mg 12/19/24 08:00 Aspirin 81 Mg Enteric Tablet PO DAILY@0800 [facility] Atorvastatin Calcium 40 mg 12/19/24 21:00 Atorvastatin 40 Mg Tablet BY MOUTH [facility] Calcium Carbonate 250 mg 12/19/24 09:00 Calcium Carbonate (Oscal) 250 Mg Tablet PO QAM [facility] Carvedilol 6.25 mg 12/19/24 09:00 Carvedilol 6.25 Mg Tablet BY MOUTH Q12HR [facility] Fluticasone/Umeclidinium/Vilanterol 1 puff 12/19/24 08:00 12/19/24 07:57 Fluticasone/Umeclidin/Vilanter 100-62.5-25 Mcg Ellipta INHALATION 1 puff DAILYRT [facility] Administration Folic Acid 0.4 mg 12/19/24 09:00 Folic Acid 0.4 Mg Tablet PO QAM [facility] Furosemide 20 mg 12/19/24 09:00 Furosemide 20 Mg Tablet PO QAM [facility] Guaifenesin 1,200 mg 12/19/24 09:00 Guaifenesin 12 Hr 600 Mg Tabcr PO Q12HR [facility] Levofloxacin 750 mg 12/19/24 17:00 Levofloxacin 750 Mg Tablet PO DAILY@1700 [facility] Losartan Potassium 12.5 mg 12/19/24 09:00 Losartan Potassium 12.5 Mg Tablet PO DAILY [facility] Miscellaneous Information 0 each 12/19/24 05:30 Ensifentrine- Nonformulary. Please Obtain Home Supply If Possible Or Hold While Inpatient. XX 01/18/25 05:29 CLARIFY [facility] Multivitamins Therapeutic 1 tablet 12/19/24 09:00 Multivitamins Therapeutic Tab (*Bkc) PO DAILY [facility] Non-Formulary Medication 2.5 ml 12/19/24 05:15 Ensifentrine [Ohtuvayre] INHALATION 01/18/25 05:14 QAM AND QPM [facility] Pantoprazole Sodium 40 mg 12/19/24 09:00 Pantoprazole 40 Mg Tablet PO QAM [facility] Perflutren Lipid Microsphere 0 ml 12/18/24 21:15 Perflutren Lipid Microspheres 1.5 Ml Vial Diluted To 10 Ml Total Volume IV PUSH 12/21/24 21:15 ONCE PRN adequate visualization Protocol Ticagrelor 90 mg 12/19/24 09:00 Ticagrelor 90 Mg Tablet PO Q12HR [facility] Trazodone HCl 100 mg 12/19/24 21:00 Trazodone Hcl 50 Mg Tablet PO HS [facility] Vitamin B Complex 1 cap 12/19/24 09:00 Vitamin B Complex Capsule PO QAM [facility] Vitamin D 125 mcg 12/19/24 09:00 Cholecalciferol (Vitamin D3) 125 Mcg (5,000 Units) Tablet PO DAILY [facility] Radiology Results: ITS Impressions Chest X-Ray 12/18/24 17:31 IMPRESSION: Bilateral basal pneumonia. Underlying pulmonary edema versus pneumonitis. Labs Labs: Laboratory Results - last 24 hr 12/18/24 12/18/24 12/18/24 17:05 17:06 17:07 WBC 11.2 H RBC 5.01 Hgb 16.2 D Hct 46.9 MCV 93.6 MCH 32.3 MCHC 34.5 RDW 13.0 Plt Count 335 D MPV 8.1 Immature Gran % (Auto) 1.2 H Neut % (Auto) 85.6 H Lymph % (Auto) 10.4 L [place] % (Auto) 2.2 L Eos % (Auto) 0.2 Baso % (Auto) 0.4 Lymph # (Auto) 1.16 [place] # (Auto) 0.3 Eos # (Auto) 0.0 Baso # (Auto) 0.0 Abs Immat Gran (auto) 0.13 H Absolute Neuts (auto) 9.6 H Absolute Nucleated RBC 0.000 Nucleated RBC % 0.0 PT 12.4 INR 0.9 APTT 27.7 Puncture Site Left radial ABG pH 7.315 L ABG pCO2 46.3 H ABG pO2 93.1 ABG PO2/FiO2 Ratio 2.33 ABG HCO3 23.1 ABG O2 Saturation 96.5 ABG O2 Content 22.7 H ABG Base Excess -3.4 A-a Gradient 138.9 Oxyhemoglobin 95.2 Carboxyhemoglobin Methemoglobin Reduced Hemoglobin Total Hemoglobin 16.9 O2 Delivery Device Non-invasive vent O2 Liters/Min Not Reportable Vent Rate 20 FiO2 40 Expiratory Pressure 5 Inspiratory Pressure 20 Sodium 132 L Potassium 4.6 Chloride 98 Carbon Dioxide 23 Anion Gap 11 BUN 18 Creatinine 0.80 Estim Creat Clear Calc 89 Estimated GFR > 60 Glucose 278 H Hemoglobin A1c 5.1 Lactic Acid Calcium 8.8 Magnesium 2.5 H Total Bilirubin 0.7 AST 36 ALT 25 Alkaline Phosphatase 95 Troponin I < 0.012 C-Reactive Protein NT-Pro-B Natriuret Pep 307 H Total Protein 8.0 Albumin 4.5 Procalcitonin 0.1 Nasal MRSA (PCR) Influenza A (RT-PCR) Influenza B (RT-PCR) SARS-CoV-2 RNA (RT-PCR) 12/18/24 12/18/24 12/19/24 17:20 22:34 04:02 WBC 6.8 RBC 4.04 L Hgb 13.2 L D Hct 38.3 L MCV 94.8 MCH 32.7 MCHC 34.5 RDW 13.2 Plt Count 239 MPV 8.3 Immature Gran % (Auto) Neut % (Auto) Lymph % (Auto) [place] % (Auto) Eos % (Auto) Baso % (Auto) Lymph # (Auto) [place] # (Auto) Eos # (Auto) Baso # (Auto) Abs Immat Gran (auto) Absolute Neuts (auto) Absolute Nucleated RBC Nucleated RBC % PT INR APTT Puncture Site ABG pH ABG pCO2 ABG pO2 ABG PO2/FiO2 Ratio ABG HCO3 ABG O2 Saturation ABG O2 Content ABG Base Excess A-a Gradient Oxyhemoglobin Carboxyhemoglobin Methemoglobin Reduced Hemoglobin Total Hemoglobin O2 Delivery Device O2 Liters/Min Vent Rate FiO2 Expiratory Pressure Inspiratory Pressure Sodium 134 L Potassium 4.2 Chloride 99 Carbon Dioxide 25 Anion Gap 10 BUN 15 Creatinine 0.67 L Estim Creat Clear Calc 105 Estimated GFR > 60 Glucose 127 H Hemoglobin A1c Lactic Acid 1.5 Calcium 8.8 Magnesium 2.2 Total Bilirubin AST ALT Alkaline Phosphatase Troponin I C-Reactive Protein < 0.5 NT-Pro-B Natriuret Pep Total Protein Albumin Procalcitonin Nasal MRSA (PCR) Not detected Influenza A (RT-PCR) Negative Influenza B (RT-PCR) Negative SARS-CoV-2 RNA (RT-PCR) Negative 12/19/24 06:33 WBC RBC Hgb Hct MCV MCH MCHC RDW Plt Count MPV Immature Gran % (Auto) Neut % (Auto) Lymph % (Auto) [place] % (Auto) Eos % (Auto) Baso % (Auto) Lymph # (Auto) [place] # (Auto) Eos # (Auto) Baso # (Auto) Abs Immat Gran (auto) Absolute Neuts (auto) Absolute Nucleated RBC Nucleated RBC % PT INR APTT Puncture Site Right radial ABG pH 7.437 ABG pCO2 39.6 ABG pO2 69.0 L ABG PO2/FiO2 Ratio 2.88 ABG HCO3 26.1 H ABG O2 Saturation 94.4 L ABG O2 Content 18.2 ABG Base Excess 1.9 A-a Gradient 55.0 Oxyhemoglobin 93.2 Carboxyhemoglobin 0.6 Methemoglobin 0.1 Reduced Hemoglobin 6.1 H Total Hemoglobin 13.9 O2 Delivery Device Nasal cannula O2 Liters/Min 1.0 Vent Rate FiO2 24 Expiratory Pressure Inspiratory Pressure Sodium Potassium Chloride Carbon Dioxide Anion Gap BUN Creatinine Estim Creat Clear Calc Estimated GFR Glucose Hemoglobin A1c Lactic Acid Calcium Magnesium Total Bilirubin AST ALT Alkaline Phosphatase Troponin I C-Reactive Protein NT-Pro-B Natriuret Pep Total Protein Albumin Procalcitonin Nasal MRSA (PCR) Influenza A (RT-PCR) Influenza B (RT-PCR) SARS-CoV-2 RNA (RT-PCR)
[2024-12-19] MEDS: LOSARTAN POTASSIUM 12.5 MG TABLET PO (08:38)
[2024-12-19] MEDS: MULTIVITAMINS THERAPEUTIC TAB (*BKC) 1 TABLET PO (08:38)
[2024-12-19] MEDS: FUROSEMIDE 20 MG TABLET PO (08:39)
[2024-12-19] MEDS: CALCIUM CARBONATE (OSCAL) 250 MG TABLET PO (08:39)
[2024-12-19] MEDS: PANTOPRAZOLE 40 MG TABLET PO (08:39)
[2024-12-19] MEDS: ASPIRIN 81 MG ENTERIC TABLET PO (08:39)
[2024-12-19] MEDS: VITAMIN B COMPLEX CAPSULE 1 CAP PO (08:39)
[2024-12-19] MEDS: TICAGRELOR 90 MG TABLET PO ×2 (08:39→21:16)
[2024-12-19] MEDS: guaiFENesin 12 HR 600 MG TABCR 1200 MG PO ×2 (08:39→21:16)
[2024-12-19] MEDS: FOLIC ACID 0.4 MG TABLET PO (08:39)
[2024-12-19] MEDS: CHOLECALCIFEROL (VITAMIN D3) 125 MCG (5,000 UNITS) TABLET PO (08:39)
--- NOTE | 2024-12-19 14:10 | P.CONPL_ITS ---
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 Temperature Pulse Rate 90 88 89 Respiratory Rate 19 20 25 H Blood Pressure 104/83 Pulse Oximetry 99 99 92 Oxygen Delivery BiPAP BiPAP Oxygen Flow Rate Fraction of Inspired Oxygen 12/18/24 21:40 12/18/24 21:58 12/18/24 22:00 Temperature 36.6 C Pulse Rate 89 87 Respiratory Rate 20 Blood Pressure 110/66 Pulse Oximetry 92 97 Oxygen Delivery BiPAP Oxygen Flow Rate Fraction of Inspired Oxygen 30 12/18/24 22:52 12/18/24 23:55 12/19/24 00:00 Temperature 36.6 C Pulse Rate 83 83 Respiratory Rate 20 Blood Pressure 112/68 Pulse Oximetry 92 96 91 Oxygen Delivery BiPAP Nasal Cannula Oxygen Flow Rate 2 Fraction of Inspired Oxygen 12/19/24 00:00 12/19/24 02:00 12/19/24 02:43 Temperature Pulse Rate 79 75 77 Respiratory Rate 20 Blood Pressure Pulse Oximetry Oxygen Delivery Oxygen Flow Rate Fraction of Inspired Oxygen 12/19/24 03:51 12/19/24 04:00 12/19/24 04:00 Temperature 36.6 C Pulse Rate 81 77 87 Respiratory Rate 20 Blood Pressure 104/71 Pulse Oximetry 93 93 Oxygen Delivery Nasal Cannula Oxygen Flow Rate 2 Fraction of Inspired Oxygen 12/19/24 06:00 12/19/24 07:57 12/19/24 07:57 Temperature Pulse Rate 87 80 Respiratory Rate 20 Blood Pressure Pulse Oximetry 94 Oxygen Delivery Nasal Cannula Oxygen Flow Rate 1 Fraction of Inspired Oxygen 12/19/24 08:00 12/19/24 08:00 12/19/24 08:00 Temperature 36.3 C L Pulse Rate 75 79 Respiratory Rate 18 Blood Pressure 109/75 Pulse Oximetry 96 96 Oxygen Delivery Nasal Cannula Oxygen Flow Rate 2 Fraction of Inspired Oxygen 12/19/24 08:09 12/19/24 10:00 12/19/24 11:32 Temperature 36.4 C Pulse Rate 84 75 81 Respiratory Rate 20 22 H Blood Pressure 106/66 Pulse Oximetry 95 Oxygen Delivery Oxygen Flow Rate Fraction of Inspired Oxygen 12/19/24 12:00 Temperature Pulse Rate Respiratory Rate Blood Pressure Pulse Oximetry 95 Oxygen Delivery Nasal Cannula Oxygen Flow Rate 2 Fraction of Inspired Oxygen Exam 2 Const: General: cooperative, healthy appearing and comfortable O rientation/consciousness: oriented to person, oriented to place and oriented to time HENMT: Head: normal to inspection Ears: hearing grossly normal bilaterally Eyes: General: appearance normal, both eyes and all related structures Neck: Neck: normal visual inspection Chest: Chest palpation & inspection: normal inspection of the chest Resp: Effort & Inspection: normal respiratory effort and able to speak in complete sentences Auscultation: no crackles, no rales, no rhonchi, no wheezes and lung sounds not diminished Cardio: Jugular venous distension: no JVD GI: Inspection: normal to inspection GI Palp: No abdominal tenderness Skin: General skin exam: normal color Neuro: General: oriented to person, oriented to place and oriented to time Extrem: General: normal to inspection Psych: Appearance: grossly normal Results Laboratory Findings 12/19/24 04:02 12/19/24 04:02 ABG, PT/INR, D-dimer: ABG ABG pH 7.437 (7.350-7.450) 12/19/24 06:33 ABG pCO2 39.6 mmHg (35.0-45.0) 12/19/24 06:33 ABG pO2 69.0 mmHg (80.0-100.0) L 12/19/24 06:33 ABG O2 Saturation 94.4 % (95.0-100.0) L 12/19/24 06:33 PT/INR, D-dimer PT 12.4 Seconds (11.1-14.7) 12/18/24 17:07 INR 0.9 12/18/24 17:07 Abnormal lab findings: Abnormal Labs 12/18/24 12/18/24 12/19/24 17:05 17:07 04:02 WBC 11.2 H RBC 4.04 L Hgb 13.2 L D Hct 38.3 L Immature Gran % (Auto) 1.2 H Neut % (Auto) 85.6 H Lymph % (Auto) 10.4 L [place] % (Auto) 2.2 L Abs Immat Gran (auto) 0.13 H Absolute Neuts (auto) 9.6 H ABG pH 7.315 L ABG pCO2 46.3 H ABG pO2 ABG HCO3 ABG O2 Saturation ABG O2 Content 22.7 H Reduced Hemoglobin Sodium 132 L 134 L Creatinine 0.67 L Glucose 278 H 127 H Magnesium 2.5 H NT-Pro-B Natriuret Pep 307 H 12/19/24 06:33 WBC RBC Hgb Hct Immature Gran % (Auto) Neut % (Auto) Lymph % (Auto) [place] % (Auto) Abs Immat Gran (auto) Absolute Neuts (auto) ABG pH ABG pCO2 ABG pO2 69.0 L ABG HCO3 26.1 H ABG O2 Saturation 94.4 L ABG O2 Content Reduced Hemoglobin 6.1 H Sodium Creatinine Glucose Magnesium NT-Pro-B Natriuret Pep Diagnostic Findings Additional studies: ITS Impressions Chest X-Ray 12/18/24 17:31
[2024-12-19] MEDS: PERFLUTREN LIPID MICROSPHERES 1.5 ML VIAL DILUTED TO 10 ML TOTAL VOLUME IV PUSH (14:15)
--- NOTE | 2024-12-19 15:50 | IVDEFINITY ---
Prior to administration of IV Definity the patient was educated on the risks and benefits of the imaging enhancing agent including potential adverse side effects. The patient verbalized understanding. Allergies were verified. No exclusion criteria were identified and at least one of the following inclusion criteria were met: 1) physician request, 2) patient technically difficult to image (per the [place] [employer] guidelines of two or more segments not discernable within the apical view), or 3) questionable left ventricular function. ?
--- NOTE | 2024-12-19 18:07 | PHAR ---
OHTQIANARE (ENSIFENTRINE) 3MG/2.5ML FOR INHALATION SUSPENTION UNIT DOSE AMPULE #6 IDENTIFIED IN PHARMACY
[2024-12-19] MEDS: ATORVASTATIN 40 MG TABLET BY MOUTH (21:15)
[2024-12-19] MEDS: ENSIFENTRINE 2.5 EACH INHALATION (23:46)
[2024-12-20] VITALS (11 sets, daily range): BP systolic 96–122; BP diastolic 66–67; PULSE 67–96; RESP 12–20; TEMP 36.1–36.3; O2SAT 94–95
[2024-12-20 05:16] LABS: Hematocrit 40.3 % (42.0-52.0); Hemoglobin 13.7 g/dL (14.0-18.0); Immature Granulocyte Percent A 0.5 % (0-0.5); Lymphocytes Absolute Auto 2.76 K/mm3 (0.9-3.2); Mean Corpuscular HGB Conc 34.0 g/dl (32-36); Mean Corpuscular Hemoglobin 32.5 pg (26-34); Mean Corpuscular Volume 95.7 fl (80-100); Nucleated Red Blood Cells Absolute Auto 0.000 K/mm3 (0.0-0.012); Nucleated Red Blood Cells Perc 0.0 % (0.0-0.2); Platelet Count Result 235 k/mm3 (150-375); Red Blood Count 4.21 M/mm3 (4.6-6.20); White Blood Count 8.1 K/mm3 (4.5-10.0)
[2024-12-20 05:39] LABS: Alanine Aminotransferase 19 U/L (6-50); Albumin Level 4.1 g/dL (3.5-5.1); Alkaline Phosphatase 57 U/L (38-126); Anion Gap 7 mmol/L (4-12); Aspartate Amino Transferase 24 U/L (17-59); Bilirubin,Total 1.1 mg/dL (0.2-1.3); Blood Urea Nitrogen 18 mg/dL (9-20); Calcium 8.7 mg/dL (8.4-10.2); Carbon Dioxide 29 mmol/L (22-30); Chloride 98 mmol/L (98-107); Estimated CRCL calculation 87 ml/min; Estimated Glomerular Filt Rate > 60; Glucose 94 mg/dL (65-110); Magnesium 2.4 mg/dL (1.6-2.3); Potassium 3.4 mmol/L (3.4-5.0); Sodium 134 mmol/L (137-145); Total Protein 6.9 g/dL (6.3-8.2)
[2024-12-20] MEDS: ENSIFENTRINE 2.5 EACH INHALATION ×2 (07:55→20:29)
[2024-12-20] MEDS: IPRATROPIUM 0.5 MG/ALBUTEROL SULFATE 2.5 MG AMPUL.NEB 3 ML INHALATION ×2 (07:55→20:39)
[2024-12-20] MEDS: PANTOPRAZOLE 40 MG TABLET PO (08:27)
[2024-12-20] MEDS: guaiFENesin 12 HR 600 MG TABCR 1200 MG PO ×2 (08:28→21:19)
[2024-12-20] MEDS: ASPIRIN 81 MG ENTERIC TABLET PO (08:28)
[2024-12-20] MEDS: MULTIVITAMINS THERAPEUTIC TAB (*BKC) 1 TABLET PO (08:28)
[2024-12-20] MEDS: FUROSEMIDE 20 MG TABLET PO (08:28)
[2024-12-20] MEDS: CHOLECALCIFEROL (VITAMIN D3) 125 MCG (5,000 UNITS) TABLET PO (08:29)
[2024-12-20] MEDS: VITAMIN B COMPLEX CAPSULE 1 CAP PO (08:29)
[2024-12-20] MEDS: CALCIUM CARBONATE (OSCAL) 250 MG TABLET PO (08:29)
[2024-12-20] MEDS: LOSARTAN POTASSIUM 12.5 MG TABLET PO (08:29)
[2024-12-20] MEDS: TICAGRELOR 90 MG TABLET PO ×2 (08:29→21:20)
[2024-12-20] MEDS: FOLIC ACID 0.4 MG TABLET PO (08:29)
--- NOTE | 2024-12-20 12:26 | P.PNIM_ITS ---
Progress Note: A&P Assessment and Plan (1) Acute respiratory failure with hypoxia and hypercapnia: Code(s): J96.01 - Acute respiratory failure with hypoxia; J96.02 - Acute respiratory failure with hypercapnia Status: Acute (2) Pneumonia: Code(s): J18.9 - Pneumonia, unspecified organism Status: Acute (3) COPD with emphysema: Code(s): J43.9 - Emphysema, unspecified Status: Acute (4) Diastolic dysfunction: Code(s): I51.89 - Other ill-defined heart diseases Status: Chronic (5) Ischemic cardiomyopathy: Code(s): I25.5 - Ischemic cardiomyopathy Status: Acute (6) Mitral valve regurgitation: Code(s): I34.0 - Nonrheumatic mitral (valve) insufficiency Status: Acute (7) Hyperglycemia: Code(s): R73.9 - Hyperglycemia, unspecified Status: Acute (8) Hypertension: Qualifiers: Hypertension type: primary hypertension Qualified Code(s): I10 - Essent ial (primary) hypertension Code(s): I10 - Essential (primary) hypertension Status: Chronic (9) Coronary artery disease: Code(s): I25.10 - Atherosclerotic heart disease of [place] coronary artery without angina pectoris Status: Acute Plan This is a 64-year-old male with chronic obstructive pulmonary disease, emphysema, ischemic cardiomyopathy with an EF as low as 30 to 35% though it has since normalized, diastolic dysfunction, coronary artery disease with history of stents to the ED LM into LAD and proximal to mid LAD, mitral valve regurgitation, hypertension, hyperlipidemia, gastroesophageal reflux disease, depression, and anxiety who presented to the emergency department via EMS with complaints of shortness of breath. He is known to the hospitalist service from an admission just 5 days ago in which he with shortness of breath and hypoxia for which he was treated with antibiotics, steroids, and diuretics to cover possible pneumonia, COPD, and CHF. He was discharged on azithromycin for 3 more days of which he has completed although he continues to have a productive cough productive of pulliam colored sputum, occasionally admixed with a small amount of bright red blood. Overall he is still not feeling well and his breathing is worse than his baseline. He has to stop to rest more frequently than usual. He has been using oxygen 2 L at nighttime as ordered and he has been diligent about monitoring his pulse ox which has been as low as 90% on his watch. Today he was out running errands and he reports getting increasingly short of breath although he was not exerting himself much. Rescue inhaler helped somewhat however not long prior to arrival his shortness of breath became acutely worse and he called 911. On EMS arrival his SpO2 was reportedly 65% and he was noted to be cool and clammy. He was placed on CPAP and was administered a nebulizer treatment and magnesium sulfate en route to the hospital. In the ED: He was afebrile on arrival with a blood pressure 152/78, pulse 116, respiratory rate 26, SpO2 95% on CPAP. Labs were significant for WBC count of 11.2, sodium 132, glucose 278, proBNP 307, troponin less than 0.012. ABG showed a pH of 7.315, pCO2 46.3, PO2 93.1, HC03 23.1. Chest x-ray showed bilateral basal pneumonia and underlying pulmonary edema versus pneumonitis. EKG showed sinus tachycardia without concerning ST segment changes. CPAP was transitioned t o BiPAP. He was given albuterol 10 mg, methylprednisolone 125 mg IV, and levofloxacin 750 mg. He is being admitted in this setting for further treatment. BiPAP has since then been removed. Acute hypoxic respiratory failure on oxygen via nasal cannula along with requirement of BiPAP upon arrival to the ED. chest x-ray with findings of bilateral basal pneumonia. Suspected to be she related to pulmonary edema rather than pneumonia. Also does not sound like COPD exacerbation. Currently improved and down to room air COPD exacerbation continue scheduled bronchodilators. Did receive a dose of m ethylprednisolone in the ER. Not currently wheezing. Hold off on any further steroids bilateral basal pneumonia currently on Levaquin will continue that. Get sputum culture. Recent respiratory pathogen panel was negative. Stop Levaquin as suspicion for pneumonia is low Ischemic cardiomyopathy ejection fraction low as 30-35% since since then resolved with diastolic dysfunction. Repeat echo showed moderate to severe mitral regurgitation. He seems to have valvular heart disease with now severe mitral regurgitation. He has worsening mitral regurgitation over the past few months course. Consulted Cardiology for evaluation may need evaluation for underlying ischemic etiology. He will need follow-up with valve specialist as an outpatient basis. Coronary artery disease with history of stents mitral valve regurgitation now has progressed to moderate to severe over few months hypertension hyperlipidemia GERD Anxiety depression DVT prophylaxis Lovenox Code status modified code Subjective Date/time seen: 12/20/24 12:26 Interval history: No overnight events. He is off oxygen now. Breathing is better. No leg swelling. No chest pain. Echo findings reviewed with the patient. Review of Systems Review of Systems: All systems reviewed & are unremarkable except as noted in HPI and below Exam Narrative: General: Nontoxic-appearing male sitting up in bed in no acute distress. HEENT: PERRL, EOMI. Sclera anicteric. Oral mucosa moist. Oropharynx clear. Neck: Supple. No JVD. Respiratory: Respirations are nonlabored he is speaking in full sentences. Lung sounds diminished bilaterally Cardiovascular: Regular rate and rhythm with S1-S2. Soft systolic murmur at the apex. Gastrointestinal: Abdomen is soft, nontender, and nondistended with positive bowel sounds. Skin: Warm and dry. No rash or lesions on limited exam. Extremities: No cyanosis, clubbing, or edema. Radial and pedal pulses intact. Neurological: Alert. Cranial nerves 2-12 are grossly intact. No gross focal deficits to casual conversation. Psychiatric: Pleasant and cooperative with normal mood and affect. Judgment and insight intact. Objective Data Vital Signs Vital Signs: Vital Signs - 24 hr 12/19/24 14:32 12/19/24 14:42 12/19/24 16:00 Temperature 98.6 F Pulse Rate 70 78 76 Respiratory Rate 18 18 18 Blood Pressure 110/67 Pulse Oximetry 94 Oxygen Delivery Fraction of Inspired Oxygen 12/19/24 20:00 12/19/24 21:16 12/19/24 21:47 Temperature 97.7 F Pulse Rate 75 82 Respiratory Rate 12 Blood Pressure 125/67 Pulse Oximetry 95 93 Oxygen Delivery Room Air Fraction of Inspired Oxygen 12/19/24 23:41 12/19/24 23:52 12/20/24 00:12 Temperature 97.6 F Pulse Rate 103 H 99 96 Respiratory Rate 12 18 18 Blood Pressure 130/86 Pulse Oximetry 94 Oxygen Delivery Fraction of Inspired Oxygen 12/20/24 04:27 12/20/24 07:55 12/20/24 07:55 Temperature 97.0 F L Pulse Rate 67 83 Respiratory Rate 12 18 Blood Pressure 104/67 Pulse Oximetry 94 94 Oxygen Delivery Room Air Fraction of Inspired Oxygen 21 12/20/24 08:15 12/20/24 08:26 12/20/24 08:28 Temperature Pulse Rate 85 74 74 Respiratory Rate 18 Blood Pressure 122/67 Pulse Oximetry 95 Oxygen Delivery Fraction of Inspired Oxygen 12/20/24 08:30 Temperature Pulse Rate Respiratory Rate Blood Pressure Pulse Oximetry Oxygen Delivery Room Air Fraction of Inspired Oxygen Intake/Output Intake/Output: Intake & Output 12/17/24 12/18/24 12/19/24 12/20/24 23:59 23:59 23:59 23:59 Intake Total 150 730 640 Output Total 350 1950 Balance -200 -1220 640 Meds/Results Medications: Active Medications Generic Name Dose Route Start Last Admin Trade Name Freq PRN Reason Stop Dose Admin Acetaminophen 650 mg 12/18/24 21:16 Acetaminophen 325 Mg Tablet PO Q6H PRN Mild Pain (1-3) or Fever Albuterol/Ipratropium 3 ml 12/19/24 14:32 12/20/24 07:55 Ipratropium 0.5 Mg/Albuterol Sulfate 2.5 Mg Ampul.Neb 3 Ml INHALATION 3 ml Q6HRT PRN Administration Wheezing Aripiprazole 2 mg 12/19/24 09:00 12/20/24 08:29 Aripiprazole 2 Mg Tablet PO 2 mg DAILY ESTEFANÍA Administration Aspirin 81 mg 12/19/24 08:00 12/20/24 08:28 Aspirin 81 Mg Enteric Tablet PO 81 mg DAILY@0800 ESTEFANÍA Administration Atorvastatin Calcium 40 mg 12/19/24 21:00 12/19/24 21:15 Atorvastatin 40 Mg Tablet BY MOUTH 40 mg HS ESTEFANÍA Administration Calcium Carbonate 250 mg 12/19/24 09:00 12/20/24 08:29 Calcium Carbonate (Oscal) 250 Mg Tablet PO 250 mg QAM ESTEFANÍA Administration Carvedilol 6.25 mg 12/19/24 09:00 12/20/24 08:28 Carvedilol 6.25 Mg Tablet BY MOUTH 6.25 mg Q12HR ESTEFANÍA Administration Fluticasone/Umeclidinium/Vilanterol 1 puff 12/19/24 08:00 12/20/24 08:15 Fluticasone/Umeclidin/Vilanter 100-62.5-25 Mcg Ellipta INHALATION 1 puff DAILYRT ESTEFANÍA Administration Folic Acid 0.4 mg 12/19/24 09:00 12/20/24 08:29 Folic Acid 0.4 Mg Tablet PO 0.4 mg QAM ESTEFANÍA Administration Furosemide 20 mg 12/19/24 09:00 12/20/24 08:28 Furosemide 20 Mg Tablet PO 20 mg QAM ESTEFANÍA Administration Guaifenesin 1,200 mg 12/19/24 09:00 12/20/24 08:28 Guaifenesin 12 Hr 600 Mg Tabcr PO 1,200 mg Q12HR ESTEFANÍA Administration Losartan Potassium 12.5 mg 12/19/24 09:00 12/20/24 08:29 Losartan Potassium 12.5 Mg Tablet PO 12.5 mg DAILY ESTEFANÍA Administration Multivitamins Therapeutic 1 tablet 12/19/24 09:00 12/20/24 08:28 Multivitamins Therapeutic Tab (*Bkc) PO 1 tablet DAILY ESTEFANÍA Administration (Ensifentrine [ 2.5 ml 12/19/24 20:00 12/20/24 07:55 Ohtuvayre] 3 Mg/2.5 INHALATION 01/18/25 19:59 2.5 ml Ml Suspension For Q12HRT ESTEFANÍA Administration Nebulization)Homemed Pantoprazole Sodium 40 mg 12/19/24 09:00 12/20/24 08:27 Pantoprazole 40 Mg Tablet PO 40 mg QAM ESTEFANÍA Administration Ticagrelor 90 mg 12/19/24 09:00 12/20/24 08:29 Ticagrelor 90 Mg Tablet PO 90 mg Q12HR ESTEFANÍA Administration Trazodone HCl 100 mg 12/19/24 21:00 12/19/24 21:15 Trazodone Hcl 50 Mg Tablet PO 100 mg HS ESTEFANÍA Administration Vitamin B Complex 1 cap 12/19/24 09:00 12/20/24 08:29 Vitamin B Complex Capsule PO 1 cap QAM ESTEFANÍA Administration Vitamin D 125 mcg 12/19/24 09:00 12/20/24 08:29 Cholecalciferol (Vitamin D3) 125 Mcg (5,000 Units) Tablet PO 125 mcg DAILY ESTEFANÍA Administration Radiology Results: ITS Impressions Chest X-Ray 12/18/24 17:31 IMPRESSION: Bilateral basal pneumonia. Underlying pulmonary edema versus pneumonitis. Labs Labs: Laboratory Results - last 24 hr 12/20/24 04:41 WBC 8.1 RBC 4.21 L Hgb 13.7 L Hct 40.3 L MCV 95.7 MCH 32.5 MCHC 34.0 RDW 13.2 Plt Count 235 MPV 8.2 Immature Gran % (Auto) 0.5 Neut % (Auto) 54.2 Lymph % (Auto) 34.2 [place] % (Auto) 9.7 H Eos % (Auto) 1.0 Baso % (Auto) 0.4 Lymph # (Auto) 2.76 [place] # (Auto) 0.8 H Eos # (Auto) 0.1 Baso # (Auto) 0.0 Abs Immat Gran (auto) 0.04 H Absolute Neuts (auto) 4.4 Absolute Nucleated RBC 0.000 Nucleated RBC % 0.0 Sodium 134 L Potassium 3.4 Chloride 98 Carbon Dioxide 29 Anion Gap 7 BUN 18 Creatinine 0.81 Estim Creat Clear Calc 87 Estimated GFR > 60 Glucose 94 Calcium 8.7 Magnesium 2.4 H Total Bilirubin 1.1 AST 24 ALT 19 Alkaline Phosphatase 57 Total Protein 6.9 Albumin 4.1
[2024-12-20] MEDS: ATORVASTATIN 40 MG TABLET BY MOUTH (21:21)
[2024-12-21] VITALS (12 sets, daily range): BP systolic 104–121; BP diastolic 64–76; PULSE 64–76; RESP 18–20; TEMP 36.3–36.7; O2SAT 93–98
[2024-12-21 05:33] LABS: Hematocrit 39.8 % (42.0-52.0); Hemoglobin 13.6 g/dL (14.0-18.0); Immature Granulocyte Percent A 0.6 % (0-0.5); Lymphocytes Absolute Auto 2.31 K/mm3 (0.9-3.2); Mean Corpuscular HGB Conc 34.2 g/dl (32-36); Mean Corpuscular Hemoglobin 32.4 pg (26-34); Mean Corpuscular Volume 94.8 fl (80-100); Nucleated Red Blood Cells Absolute Auto 0.000 K/mm3 (0.0-0.012); Nucleated Red Blood Cells Perc 0.0 % (0.0-0.2); Platelet Count Result 219 k/mm3 (150-375); Red Blood Count 4.20 M/mm3 (4.6-6.20); White Blood Count 6.9 K/mm3 (4.5-10.0)
[2024-12-21 05:55] LABS: Alanine Aminotransferase 17 U/L (6-50); Albumin Level 3.9 g/dL (3.5-5.1); Alkaline Phosphatase 57 U/L (38-126); Anion Gap 7 mmol/L (4-12); Aspartate Amino Transferase 23 U/L (17-59); Bilirubin,Total 1.1 mg/dL (0.2-1.3); Blood Urea Nitrogen 17 mg/dL (9-20); Calcium 8.8 mg/dL (8.4-10.2); Carbon Dioxide 27 mmol/L (22-30); Chloride 100 mmol/L (98-107); Estimated CRCL calculation 87 ml/min; Estimated Glomerular Filt Rate > 60; Glucose 100 mg/dL (65-110); Magnesium 2.1 mg/dL (1.6-2.3); Potassium 3.3 mmol/L (3.4-5.0); Sodium 134 mmol/L (137-145); Total Protein 6.6 g/dL (6.3-8.2)
[2024-12-21] MEDS: FLUTICASONE/UMECLIDIN/VILANTER 100-62.5-25 MCG ELLIPTA 1 PUFF INHALATION (08:31)
[2024-12-21] MEDS: IPRATROPIUM 0.5 MG/ALBUTEROL SULFATE 2.5 MG AMPUL.NEB 3 ML INHALATION ×2 (08:32→20:47)
[2024-12-21] MEDS: MULTIVITAMINS THERAPEUTIC TAB (*BKC) 1 TABLET PO (09:07)
[2024-12-21] MEDS: POTASSIUM CHLORIDE 20 MEQ ER TABLET 40 MEQ PO (09:07)
[2024-12-21] MEDS: guaiFENesin 12 HR 600 MG TABCR 1200 MG PO ×2 (09:07→21:41)
[2024-12-21] MEDS: FOLIC ACID 0.4 MG TABLET PO (09:08)
[2024-12-21] MEDS: TICAGRELOR 90 MG TABLET PO ×2 (09:08→21:41)
[2024-12-21] MEDS: ASPIRIN 81 MG ENTERIC TABLET PO (09:08)
[2024-12-21] MEDS: CHOLECALCIFEROL (VITAMIN D3) 125 MCG (5,000 UNITS) TABLET PO (09:08)
[2024-12-21] MEDS: LOSARTAN POTASSIUM 12.5 MG TABLET PO (09:08)
[2024-12-21] MEDS: VITAMIN B COMPLEX CAPSULE 1 CAP PO (09:08)
[2024-12-21] MEDS: FUROSEMIDE 20 MG TABLET PO (09:09)
[2024-12-21] MEDS: CALCIUM CARBONATE (OSCAL) 250 MG TABLET PO (09:09)
[2024-12-21] MEDS: PANTOPRAZOLE 40 MG TABLET PO (09:09)
--- NOTE | 2024-12-21 11:08 | P.CONCA_ITS ---
Assessment and Plan Assessment and plan (1) Mitral valve regurgitation: Code(s): I34.0 - Nonrheumatic mitral (valve) insufficiency Status: Acute Assessment and Plan: Mod-severe MR. Will schedule for ADIN tomorrow. (2) Coronary artery disease: Code(s): I25.10 - Atherosclerotic heart disease of [place] coronary artery without angina pectoris Status: Acute Assessment and Plan: If valve shows needs surgical intervention, then will need [facility] prior to it. (3) Diastolic dysfunction: Code(s): I51.89 - Other ill-defined heart diseases Status: Chronic (4) Hypertension: Qualifiers: Hypertension type: primary hypertension Qualified Code(s): I10 - Essential (primary) hypertension Code(s): I10 - Essential (primary) hypertension Status: Chronic (5) Acute respiratory distress: Code(s): R06.03 - Acute respiratory distress Status: Acute History of Present Illness History of Present Illness Consult date/time: 12/21/24 11:08 Reason For Visit: pneumonia/resp distress Narrative: 64 yr old man who is my regular cardiology patient presents to ER with sob. He has a history of CAD, ICM, diastolic dysfunction, MR/MS, hypertension, dyslipidemia, COPD, alcohol abuse, former smoking. He has had 3 recurrent episodes of sob and found to have flash pulm edema. It was recover immediately with diuresis and control of BP. This time he had severe sob and found to be the same as previous visits. He was hospitalized for sob and believed to be due to to diastolic heart failure with significant mitral regurgitation. He was able to walk a couple of blocks. He drinks a quart of wine a night or 5 l/week. Denies chest pain, sob, orthopnea, PND, edema, dizziness, palpitations. 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 Bell: LM 40% unstable, LAD prox 90%, mid 90%, LCx ostial- prox 50%, RCA prox 50%, mid 50%; PCI with PARMINDER to LM into LAD, 2 stents in prox to mid LAD. Echo/MUGA:: 12/19/24 Echo: EF 60-65%, grade I diastolic dysfunction (E/e' 11), mild LAE, mild mitral valve calcification, mod-severe MR. 10/28/24 Echo: EF 60-65%, diastolic dysfunction (E/e' 16), mild LAE, mod MR. 04/07/24 Echo: EF 60-65%, grade I diastolic dysfunction (E/e' 15), mild LAE, mild MAC, mild-mod MR/MS (MVA 1.1 cm2). 08/20/23 Echo: EF 60-65%, mod LAE, diastolic function indeterminate, mild posterior MAC, mod MR, mild-mod TR, RVSP 41 mmHg. 06/18/23 Echo: EF 30-35%, akinetic apex, mild-mod LVH, grade I diastolic dysfunction, mild MR. Electrophysiology:: 11/21/23 26 days event monitor: Sinus rhythm, HR range 47-120 bpm; average 67 bpm; 47 bpm was on 11/29/23 at 05:48; 1% PAC, 2% PVC. 11/11/23 EKG: Sinus tachycardia at 102, consider inferior infarct. 10/19/23 EKG: Sinus bradycardia at 56 bpm. 06/19/23 EKG: Sinus rhythm, anteroseptal infarct, T wave abnormality- consider ant/high lat ischemia. Stress Tests:: 11/11/23 CXR: RLL pneumonia. Review of Systems 2 Review of Systems: All systems reviewed & are unremarkable except as noted in HPI and below Constitutional: Constitutional: Reports as per HPI, Denies chills, Reports fatigue and Denies fever(s) Cardiovascular: Cardiovascular: Reports as per HPI, Denies chest pain and Reports dyspnea Respiratory: Respiratory: Reports as per HPI, Reports cough and Reports dyspnea Gastrointestinal: Gastrointestinal: Reports as per HPI and Denies abdominal pain Genitourinary: Genitourinary: Reports as per HPI and Denies dysuria Musculoskeletal: Musculoskeletal: Reports as per HPI Neurologic: Reports as per HPI, Denies dizziness and Denies syncope [facility] Past Medical History Medical History Ischemic cardiomyopathy EF is low as 30 to 35% in June 2023; improved to 60 to 65% on echo obtained in August 2023. Mitral valve regurgitation COPD with emphysema Coronary artery disease Non-STEMI (non-ST elevated myocardial infarction) Pneumonia Hypertension Chronic hyponatremia Thoracic compression fracture Gastroesophageal reflux disease Osteoporosis Heavy alcohol use Anxiety and depression has previously undergone ECT treatments Hypercholesteremia Former smoker Surgical History Surgical History History of cataract extraction History of coronary artery stent placement (06/2023) stents to the LM into LAD and proximal to mid LAD History of tonsillectomy Family History Family History Father Aneurysm Grandparent Black lung Social History Social History Social History: Surrogate medical decision maker: Valeriano Laguna, sibling. Code status: Modified code, no intubation. Smoking packs per day: 1.5 Smoking cigarettes per day: 30.0 Years smoked: 42 Smoking pack-years: 63.00 Smoking status: Former smoker Tobacco type: cigarettes Second hand tobacco smoke exposure: No Smoking end date: 06/11/19 Alcohol intake: current Drinks per week: 6 Alcohol use details: wine Substance use: current Substance use type: marijuana Last use: Sunday Do You Feel Safe in your Home?: Yes Lack of Transportation: No Lack of Food: Never True Current Housing: I Have Housing Concerned About Future Housing: No Difficulty Paying Gas/Electric Bills: No Difficulty Paying for Meds: No Currently Unemployed: No Education: Master's Degree or Higher Difficulty w/ Childcare or Family Care: No Living arrangements: alone Additional living arrangements comments: Lives alone in [place]. 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 Spiritual care concerns: No Meds Home Medications and Allergies Home Medications ?Medication ?Instructions ?Recorded ?Confirmed ?Type trazodone 100 mg tablet 100 mg PO HS 11/10/22 12/18/24 History aspirin 81 mg tablet,delayed 81 mg PO DAILY@0800 #90 tabs 06/19/23 12/18/24 Rx release calcium 100 mg capsule 100 mg PO DAILY 06/19/23 12/18/24 History losartan 25 mg tablet 12.5 mg (1/2 x 25 mg) PO DAILY #90 11/21/23 12/18/24 Rx tabs Trelegy Ellipta 100 mcg-62.5 1 inh inhalation QAM #60 ea 03/06/24 12/18/24 Rx mcg-25 mcg powder for inhalation (vxghztrofuz-ehtvazeci-wpcfyxpt) multivitamin (Daily Multi-Vitamin 1 tablet PO DAILY 03/13/24 12/18/24 History tablet) albuterol sulfate 1.25 mg/3 mL 1.25 mg (3 mL) inhalation Q6H PRN 07/31/24 12/18/24 Rx solution for nebulization shortness of breath or wheezing #360 mL alendronate 70 mg tablet 70 mg PO WEEKLY #12 tabs 09/08/24 12/18/24 Rx aripiprazole 2 mg tablet 2 mg PO DAILY 09/08/24 12/18/24 History omeprazole 20 mg capsule,delayed 20 mg PO DAILY #90 caps 09/08/24 12/18/24 Rx release vitamin B complex-folic acid 0.4 1 tablet PO DAILY 09/08/24 12/18/24 History mg tablet (B Complex 1 (with folic acid)) ticagrelor 90 mg tablet (Brilinta) 90 mg PO Q12HR #180 tabs 09/24/24 12/18/24 Rx ensifentrine 3 mg/2.5 mL 2.5 ml inhalation QAM AND QPM #150 10/29/24 12/18/24 Rx suspension for nebulization mL (Ohtuvayre) furosemide 20 mg tablet 20 mg PO QAM #30 tabs 11/19/24 12/18/24 Rx carvedilol 6.25 mg tablet See Rx Instructions .Route 11/26/24 12/18/24 Rx .COMPLEX #60 tabs albuterol sulfate 90 mcg/actuation 2 puff inhalation Q6H PRN 12/13/24 12/18/24 History aerosol inhaler shortness of breath or wheezing cholecalciferol (vitamin D3) 125 5,000 unit PO DAILY 12/13/24 12/18/24 History mcg (5,000 unit) capsule benzonatate 100 mg capsule 100 mg PO TID PRN Cough #30 caps 12/15/24 12/18/24 Rx guaifenesin 600 mg tablet, 600 mg PO Q12HR #30 tabs 12/15/24 12/18/24 Rx extended release 12 hr (Mucus Relief ER) atorvastatin 80 mg tablet See Rx Instructions .Route 12/16/24 12/18/24 Rx .COMPLEX #30 tabs Allergies Allergy/AdvReac Type Severity Reaction Status Date / Time No Known Allergies Allergy Verified 12/18/24 17:16 Vital Signs Vital Signs - 24 hr 12/20/24 15:59 12/20/24 20:00 12/20/24 20:32 Temperature 97.4 F L Pulse Rate 70 67 Respiratory Rate 16 20 Blood Pressure 96/66 L Pulse Oximetry 95 Oxygen Delivery Room Air Fraction of Inspired Oxygen 12/20/24 20:41 12/20/24 20:42 12/20/24 21:21 Temperature Pulse Rate 70 76 Respiratory Rate 20 Blood Pressure Pulse Oximetry 95 Oxygen Delivery Room Air Fraction of Inspired Oxygen 21 12/21/24 00:00 12/21/24 06:25 12/21/24 08:00 Temperature 97.6 F 98.1 F Pulse Rate 76 64 Respiratory Rate 18 18 Blood Pressure 107/67 110/64 110/64 Pulse Oximetry 93 98 Oxygen Delivery Fraction of Inspired Oxygen 12/21/24 08:30 12/21/24 08:30 12/21/24 08:40 Temperature Pulse Rate 68 73 Respiratory Rate 20 20 Blood Pressure Pulse Oximetry 95 Oxygen Delivery Room Air Fraction of Inspired Oxygen 21 12/21/24 09:00 12/21/24 09:09 Temperature Pulse Rate 73 Respiratory Rate Blood Pressure Pulse Oximetry Oxygen Delivery Room Air Fraction of Inspired Oxygen Exam 2 Const: General: cooperative, healthy appearing and comfortable Resp: Auscultation: clear to auscultation bilaterally, no crackles, no rales, no rhonchi and no wheezes Cardio: Rate: regular rate Rhythm: regular rhythm Heart sounds: no murmurs GI: GI Palp: No abdominal tenderness and Yes Soft to palpation Neuro: General: oriented to person, oriented to place and oriented to time Extrem: Right lower extremity: no edema Left lower extremity: no edema Results Labs and Meds 12/21/24 05:11 12/21/24 05:11 Lab results: Cardiac Enzymes 12/21/24 Range/Units 05:11 AST 23 (17-59) U/L CBC 12/21/24 Range/Units 05:11 WBC 6.9 (4.5-10.0) K/mm3 RBC 4.20 L (4.6-6.20) M/mm3 Hgb 13.6 L (14.0-18.0) g/dL Hct 39.8 L (42.0-52.0) % Plt Count 219 (150-375) k/mm3 Lymph # (Auto) 2.31 (0.9-3.2) K/mm3 [place] # (Auto) 0.7 H (0.1-0.6) K/mm3 Eos # (Auto) 0.2 (0-0.3) K/mm3 Baso # (Auto) 0.0 (0.0-0.1) K/mm3 Comprehensive Metabolic Panel 12/21/24 Range/Units 05:11 Sodium 134 L (137-145) mmol/L Potassium 3.3 L (3.4-5.0) mmol/L Chloride 100 (98-107) mmol/L Carbon Dioxide 27 (22-30) mmol/L BUN 17 (9-20) mg/dL Creatinine 0.82 (0.7-1.3) mg/dL Glucose 100 (65-110) mg/dL Calcium 8.8 (8.4-10.2) mg/dL AST 23 (17-59) U/L ALT 17 (6-50) U/L Alkaline Phosphatase 57 (38-126) U/L Total Protein 6.6 (6.3-8.2) g/dL Albumin 3.9 (3.5-5.1) g/dL Intake and Output 12/20/24 12/21/24 12/21/24 23:59 07:59 15:59 Intake Total 790 240 Balance 790 240 Intake: Oral 790 240 Other: # Unmeasured Voids 3 3 Patient Weight 12/21/24 23:59 Weight 77.5 kg
--- NOTE | 2024-12-21 11:57 | PM.IMPN ---
Progress Note: A&P Assessment and Plan (1) Acute respiratory failure with hypoxia and hypercapnia: Code(s): J96.01 - Acute respiratory failure with hypoxia; J96.02 - Acute respiratory failure with hypercapnia Status: Acute (2) Pneumonia: Code(s): J18.9 - Pneumonia, unspecified organism Status: Acute (3) COPD with emphysema: Code(s): J43.9 - Emphysema, unspecified Status: Acute (4) Diastolic dysfunction: Code(s): I51.89 - Other ill-defined heart diseases Status: Chronic (5) Ischemic cardiomyopathy: Code(s): I25.5 - Ischemic cardiomyopathy Status: Acute (6) Mitral valve regurgitation: Code(s): I34.0 - Nonrheumatic mitral (valve) insufficiency Status: Acute (7) Hyperglycemia: Code(s): R73.9 - Hyperglycemia, unspecified Status: Acute (8) Hypertension: Qualifiers: Hypertension type: primary hypertension Qualified Code(s): I10 - Essential (primary) hypertension Code(s): I10 - Essential (primary) hypertension Status: Chronic (9) Coronary artery disease: Code(s): I25.10 - Atherosclerotic heart disease of [place] coronary artery without angina pectoris Status: Acute Plan This is a 64-year-old male with chronic obstructive pulmonary disease, emphysema, ischemic cardiomyopathy with an EF as low as 30 to 35% though it has since normalized, diastolic dysfunction, coronary artery disease with history of stents to the ED LM into LAD and proximal to mid LAD, mitral valve regurgitation, hypertension, hyperlipidemia, gastroesophageal reflux disease, depression, and anxiety who presented to the emergency department via EMS with complaints of shortness of breath. He is known to the hospitalist service from an admission just 5 days ago in which he with shortness of breath and hypoxia for which he was treated with antibiotics, steroids, and diuretics to cover possible pneumonia, COPD, and CHF. He was discharged on azithromycin for 3 more days of which he has completed although he continues to have a productive cough productive of pulliam colored sputum, occasionally admixed with a small amount of bright red blood. Overall he is still not feeling well and his breathing is worse than his baseline. He has to stop to rest more frequently than usual. He has been using oxygen 2 L at nighttime as ordered and he has been diligent about monitoring his pulse ox which has been as low as 90% on his watch. Today he was out running errands and he reports getting increasingly short of breath although he was not exerting himself much. Rescue inhaler helped somewhat however not long prior to arrival his shortness of breath became acutely worse and he called 911. On EMS arrival his SpO2 was reportedly 65% and he was noted to be cool and clammy. He was placed on CPAP and was administered a nebulizer treatment and magnesium sulfate en route to the hospital. In the ED: He was afebrile on arrival with a blood pressure 152/78, pulse 116, respiratory rate 26, SpO2 95% on CPAP. Labs were significant for WBC count of 11.2, sodium 132, glucose 278, proBNP 307, troponin less than 0.012. ABG showed a pH of 7.315, pCO2 46.3, PO2 93.1, HC03 23.1. Chest x-ray showed bilateral basal pneumonia and underlying pulmonary edema versus pneumonitis. EKG showed sinus tachycardia without concerning ST segment changes. CPAP was transitioned to BiPAP. He was given albuterol 10 mg, methylprednisolone 125 mg IV, and levofloxacin 750 mg. He is being admitted in this setting for further treatment. BiPAP has since then been removed. Acute hypoxic respiratory failure on oxygen via nasal cannula along with requirement of BiPAP upon arrival to the ED. chest x-ray with findings of bilateral basal pneumonia. Suspected to be she related to pulmonary edema rather than pneumonia. Also does not sound like COPD exacerbation. Currently improved and down to room air COPD exacerbation continue scheduled bronchodilators. Did receive a dose of methylprednisolone in the ER. Not currently wheezing. Hold off on any further steroids bilateral basal pneumonia currently on Levaquin will continue that. Get sputum culture. Recent respiratory pathogen panel was negative. Stop Levaquin as suspicion for pneumonia is low Ischemic cardiomyopathy ejection fraction low as 30-35% since since then resolved with diastolic dysfunction. Repeat echo showed moderate to severe mitral regurgitation. He seems to have valvular heart disease with now severe mitral regurgitation. He has worsening mitral regurgitation over the past few months course. Consulted Cardiology for evaluation may need evaluation for underlying ischemic etiology. He will need follow-up with valve specialist as an outpatient basis. Discussed with Cardiology. Will plan for stress test in a.m.. Coronary artery disease with history of stents mitral valve regurgitation now has progressed to moderate to severe over few months hypertension hyperlipidemia GERD Anxiety depression DVT prophylaxis Lovenox Code status modified code Subjective Date/time seen: 12/21/24 11:57 Interval history: No overnight events. Feels tired. No new complaints no chest pain or shortness of breath. Minimal cough. Review of Systems Review of Systems: All systems reviewed & are unremarkable except as noted in HPI and below Exam Narrative: General: Nontoxic-appearing male sitting up in bed in no acute distress. HEENT: PERRL, EOMI. Sclera anicteric. Oral mucosa moist. Oropharynx clear. Neck: Supple. No JVD. Respiratory: Respirations are nonlabored he is speaking in full sentences. Lung sounds diminished bilaterally Cardiovascular: Regular rate and rhythm with S1-S2. Soft systolic murmur at the apex. Gastrointestinal: Abdomen is soft, nontender, and nondistended with positive bowel sounds. Skin: Warm and dry. No rash or lesions on limited exam. Extremities: No cyanosis, clubbing, or edema. Radial and pedal pulses intact. Neurological: Alert. Cranial nerves 2-12 are grossly intact. No gross focal deficits to casual conversation. Psychiatric: Pleasant and cooperative with normal mood and affect. Judgment and insight intact. Objective Data Vital Signs Vital Signs: Vital Signs - 24 hr 12/20/24 15:59 12/20/24 20:00 12/20/24 20:32 Temperature 97.4 F L Pulse Rate 70 67 Respiratory Rate 16 20 Blood Pressure 96/66 L Pulse Oximetry 95 Oxygen Delivery Room Air Fraction of Inspired Oxygen 12/20/24 20:41 12/20/24 20:42 12/20/24 21:21 Temperature Pulse Rate 70 76 Respiratory Rate 20 Blood Pressure Pulse Oximetry 95 Oxygen Delivery Room Air Fraction of Inspired Oxygen 12/21/24 00:00 12/21/24 06:25 12/21/24 08:00 Temperature 97.6 F 98.1 F Pulse Rate 76 64 Respiratory Rate 18 18 Blood Pressure 107/67 110/64 110/64 Pulse Oximetry 93 98 Oxygen Delivery Fraction of Inspired Oxygen 12/21/24 08:30 12/21/24 08:30 12/21/24 08:40 Temperature Pulse Rate 68 73 Respiratory Rate 20 20 Blood Pressure Pulse Oximetry 95 Oxygen Delivery Room Air Fraction of Inspired Oxygen 12/21/24 09:00 12/21/24 09:09 Temperature Pulse Rate 73 Respiratory Rate Blood Pressure Pulse Oximetry Oxygen Delivery Room Air Fraction of Inspired Oxygen Intake/Output Intake/Output: Intake & Output 12/18/24 12/19/24 12/20/24 12/21/24 23:59 23:59 23:59 23:59 Intake Total 273 892 8374 240 Output Total 350 1950 Balance -200 -1220 1670 240 Meds/Results Medications: Active Medications Generic Name Dose Route Start Last Admin Trade Name Freq PRN Reason Stop Dose Admin Acetaminophen 650 mg 12/18/24 21:16 Acetaminophen 325 Mg Tablet PO Q6H PRN Mild Pain (1-3) or Fever Albuterol/Ipratropium 3 ml 12/19/24 14:32 12/21/24 08:32 Ipratropium 0.5 Mg/Albuterol Sulfate 2.5 Mg Ampul.Neb 3 Ml INHALATION 3 ml Q6HRT PRN Administration Wheezing Aripiprazole 2 mg 12/19/24 09:00 12/21/24 09:08 Aripiprazole 2 Mg Tablet PO 2 mg DAILY ESTEFANÍA Administration Aspirin 81 mg 12/19/24 08:00 12/21/24 09:08 Aspirin 81 Mg Enteric Tablet PO 81 mg DAILY@0800 ESTEFANÍA Administration Atorvastatin Calcium 40 mg 12/19/24 21:00 12/20/24 21:21 Atorvastatin 40 Mg Tablet BY MOUTH 40 mg HS ESTEFANÍA Administration Calcium Carbonate 250 mg 12/19/24 09:00 12/21/24 09:09 Calcium Carbonate (Oscal) 250 Mg Tablet PO 250 mg QAM ESTEFANÍA Administration Carvedilol 6.25 mg 12/19/24 09:00 12/21/24 09:09 Carvedilol 6.25 Mg Tablet BY MOUTH 6.25 mg Q12HR ESTEFANÍA Administration Fluticasone/Umeclidinium/Vilanterol 1 puff 12/19/24 08:00 12/21/24 08:31 Fluticasone/Umeclidin/Vilanter 100-62.5-25 Mcg Ellipta INHALATION 1 puff DAILYRT ESTEFANÍA Administration Folic Acid 0.4 mg 12/19/24 09:00 12/21/24 09:08 Folic Acid 0.4 Mg Tablet PO 0.4 mg QAM ESTEFANÍA Administration Furosemide 20 mg 12/19/24 09:00 12/21/24 09:09 Furosemide 20 Mg Tablet PO 20 mg QAM ESTEFANÍA Administration Guaifenesin 1,200 mg 12/19/24 09:00 12/21/24 09:07 Guaifenesin 12 Hr 600 Mg Tabcr PO 1,200 mg Q12HR ESTEFANÍA Administration Losartan Potassium 12.5 mg 12/19/24 09:00 12/21/24 09:08 Losartan Potassium 12.5 Mg Tablet PO 12.5 mg DAILY ESTEFANÍA Administration Multivitamins Therapeutic 1 tablet 12/19/24 09:00 12/21/24 09:07 Multivitamins Therapeutic Tab (*Bkc) PO 1 tablet DAILY ESTEFANÍA Administration (Ensifentrine [ 2.5 ml 12/19/24 20:00 12/21/24 07:37 Ohtuvayre] 3 Mg/2.5 INHALATION 01/18/25 19:59 Not Given Ml Suspension For Q12HRT ESTEFANÍA Nebulization)Homemed Pantoprazole Sodium 40 mg 12/19/24 09:00 12/21/24 09:09 Pantoprazole 40 Mg Tablet PO 40 mg QAM ESTEFANÍA Administration Ticagrelor 90 mg 12/19/24 09:00 12/21/24 09:08 Ticagrelor 90 Mg Tablet PO 90 mg Q12HR ESTEFANÍA Administration Trazodone HCl 100 mg 12/19/24 21:00 12/20/24 21:21 Trazodone Hcl 50 Mg Tablet PO 100 mg HS ESTEFANÍA Administration Vitamin B Complex 1 cap 12/19/24 09:00 12/21/24 09:08 Vitamin B Complex Capsule PO 1 cap QAM ESTEFANÍA Administration Vitamin D 125 mcg 12/19/24 09:00 12/21/24 09:08 Cholecalciferol (Vitamin D3) 125 Mcg (5,000 Units) Tablet PO 125 mcg DAILY ESTEFANÍA Administration Radiology Results: ITS Impressions Chest X-Ray 12/18/24 17:31 IMPRESSION: Bilateral basal pneumonia. Underlying pulmonary edema versus pneumonitis. Labs Labs: Laboratory Results - last 24 hr 12/21/24 05:11 WBC 6.9 RBC 4.20 L Hgb 13.6 L Hct 39.8 L MCV 94.8 MCH 32.4 MCHC 34.2 RDW 13.0 Plt Count 219 MPV 8.2 Immature Gran % (Auto) 0.6 H Neut % (Auto) 52.7 Lymph % (Auto) 33.5 [place] % (Auto) 9.9 H Eos % (Auto) 2.9 Baso % (Auto) 0.4 Lymph # (Auto) 2.31 [place] # (Auto) 0.7 H Eos # (Auto) 0.2 Baso # (Auto) 0.0 Abs Immat Gran (auto) 0.04 H Absolute Neuts (auto) 3.6 Absolute Nucleated RBC 0.000 Nucleated RBC % 0.0 Sodium 134 L Potassium 3.3 L Chloride 100 Carbon Dioxide 27 Anion Gap 7 BUN 17 Creatinine 0.82 Estim Creat Clear Calc 87 Estimated GFR > 60 Glucose 100 Calcium 8.8 Magnesium 2.1 Total Bilirubin 1.1 AST 23 ALT 17 Alkaline Phosphatase 57 Total Protein 6.6 Albumin 3.9
[2024-12-21] MEDS: ENSIFENTRINE 2.5 EACH INHALATION (20:47)
[2024-12-21] MEDS: ATORVASTATIN 40 MG TABLET BY MOUTH (21:41)
[2024-12-22] VITALS (38 sets, daily range): BP systolic 99–159; BP diastolic 61–102; PULSE 60–90; RESP 12–26; TEMP 36.5–36.6; O2SAT 92–99
[2024-12-22 05:39] LABS: Hematocrit 39.1 % (42.0-52.0); Hemoglobin 13.6 g/dL (14.0-18.0); Immature Granulocyte Percent A 0.8 % (0-0.5); Lymphocytes Absolute Auto 2.46 K/mm3 (0.9-3.2); Mean Corpuscular HGB Conc 34.8 g/dl (32-36); Mean Corpuscular Hemoglobin 32.6 pg (26-34); Mean Corpuscular Volume 93.8 fl (80-100); Nucleated Red Blood Cells Absolute Auto 0.000 K/mm3 (0.0-0.012); Nucleated Red Blood Cells Perc 0.0 % (0.0-0.2); Platelet Count Result 208 k/mm3 (150-375); Red Blood Count 4.17 M/mm3 (4.6-6.20); White Blood Count 7.9 K/mm3 (4.5-10.0)
[2024-12-22 05:53] LABS: Alanine Aminotransferase 18 U/L (6-50); Albumin Level 4.0 g/dL (3.5-5.1); Alkaline Phosphatase 57 U/L (38-126); Anion Gap 7 mmol/L (4-12); Aspartate Amino Transferase 22 U/L (17-59); Bilirubin,Total 1.2 mg/dL (0.2-1.3); Blood Urea Nitrogen 16 mg/dL (9-20); Calcium 9.1 mg/dL (8.4-10.2); Carbon Dioxide 28 mmol/L (22-30); Chloride 99 mmol/L (98-107); Estimated CRCL calculation 87 ml/min; Estimated Glomerular Filt Rate > 60; Glucose 106 mg/dL (65-110); Magnesium 2.0 mg/dL (1.6-2.3); Potassium 3.6 mmol/L (3.4-5.0); Sodium 134 mmol/L (137-145); Total Protein 6.7 g/dL (6.3-8.2)
--- NOTE | 2024-12-22 06:41 | PCCARD ---
CANCELLED THE [place] STRESS TEST PER DR WRAY
--- NOTE | 2024-12-22 07:40 | PM.PNCARD ---
Progress Note: A&P Assessment and Plan (1) Mitral valve regurgitation: Code(s): I34.0 - Nonrheumatic mitral (valve) insufficiency Status: Acute Assessment and Plan: Mod-severe MR. ADIN today. If needs repair or replacement, then will plan for LHC tomorrow. (2) Coronary artery disease: Code(s): I25.10 - Atherosclerotic heart disease of [place] coronary artery without angina pectoris Status: Acute Assessment and Plan: If valve shows needs surgical intervention, then will need LHC prior to it. (3) Diastolic dysfunction: Code(s): I51.89 - Other ill-defined heart diseases Status: Chronic Assessment and Plan: Stable. (4) Hypertension: Qualifiers: Hypertension type: primary hypertension Qualified Code(s): I10 - Essential (primary) hypertension Code(s): I10 - Essential (primary) hypertension Status: Chronic Assessment and Plan: Stabe. (5) Acute respiratory distress: Code(s): R06.03 - Acute respiratory distress Status: Acute Assessment and Plan: Stable but has frequent recurrences. Subjective Date/time seen: 12/22/24 07:40 Interval history: No sob while at rest and normal BP. Denies chest pain. Exam Const: General: cooperative, healthy appearing and comfortable Orientation/consciousness: oriented to person, oriented to place and oriented to time Resp: Auscultation: clear to auscultation bilaterally, no crackles, no rales, no rhonchi and no wheezes Cardio: Rate: regular rate Rhythm: regular rhythm Heart sounds: no murmurs Neuro: General: oriented to person, oriented to place and oriented to time Extrem: Right lower extremity: no edema Left lower extremity: no edema Objective Data Vital Signs Vital Signs: Vital Signs - 24 hr 12/21/24 08:00 12/21/24 08:30 12/21/24 08:30 Temperature Pulse Rate 68 Respiratory Rate 20 Blood Pressure 110/64 Pulse Oximetry 95 Oxygen Delivery Room Air Fraction of Inspired Oxygen 21 12/21/24 08:40 12/21/24 09:00 12/21/24 09:09 Temperature Pulse Rate 73 73 Respiratory Rate 20 Blood Pressure Pulse Oximetry Oxygen Delivery Room Air Fraction of Inspired Oxygen 12/21/24 14:50 12/21/24 20:45 12/21/24 20:47 Temperature 97.4 F L Pulse Rate 74 70 70 Respiratory Rate 18 20 Blood Pressure 104/72 Pulse Oximetry 96 95 Oxygen Delivery Room Air Fraction of Inspired Oxygen 21 12/21/24 21:09 12/21/24 21:23 12/21/24 21:25 Temperature 97.9 F Pulse Rate 71 76 Respiratory Rate 20 20 Blood Pressure 121/76 Pulse Oximetry 96 Oxygen Delivery Room Air Fraction of Inspired Oxygen 12/21/24 21:41 12/22/24 04:04 Temperature 97.8 F Pulse Rate 76 68 Respiratory Rate 20 Blood Pressure 104/63 Pulse Oximetry 96 Oxygen Delivery Fraction of Inspired Oxygen Intake/Output Intake/Output: Intake & Output 12/19/24 12/20/24 12/21/24 12/22/24 23:59 23:59 23:59 23:59 Intake Total 730 1670 1270 300 Output Total 1950 Balance -1220 1670 1270 300 Meds/Results Medications: Active Medications Generic Name Dose Route Start Last Admin Trade Name Freq PRN Reason Stop Dose Admin Acetaminophen 650 mg 12/18/24 21:16 Acetaminophen 325 Mg Tablet PO Q6H PRN Mild Pain (1-3) or Fever Albuterol/Ipratropium 3 ml 12/19/24 14:32 12/21/24 20:47 Ipratropium 0.5 Mg/Albuterol Sulfate 2.5 Mg Ampul.Neb 3 Ml INHALATION 3 ml Q6HRT PRN Administration Wheezing Aripiprazole 2 mg 12/19/24 09:00 12/21/24 09:08 Aripiprazole 2 Mg Tablet PO 2 mg DAILY ESTEFANÍA Administration Aspirin 81 mg 12/19/24 08:00 12/21/24 09:08 Aspirin 81 Mg Enteric Tablet PO 81 mg DAILY@0800 ESTEFANÍA Administration Atorvastatin Calcium 40 mg 12/19/24 21:00 12/21/24 21:41 Atorvastatin 40 Mg Tablet BY MOUTH 40 mg HS ESTEFANÍA Administration Calcium Carbonate 250 mg 12/19/24 09:00 12/21/24 09:09 Calcium Carbonate (Oscal) 250 Mg Tablet PO 250 mg QAM ESTEFANÍA Administration Carvedilol 6.25 mg 12/19/24 09:00 12/21/24 21:41 Carvedilol 6.25 Mg Tablet BY MOUTH 6.25 mg Q12HR ESTEFANÍA Administration Fluticasone/Umeclidinium/Vilanterol 1 puff 12/19/24 08:00 12/21/24 08:31 Fluticasone/Umeclidin/Vilanter 100-62.5-25 Mcg Ellipta INHALATION 1 puff DAILYRT ESTEFANÍA Administration Folic Acid 0.4 mg 12/19/24 09:00 12/21/24 09:08 Folic Acid 0.4 Mg Tablet PO 0.4 mg QAM ESTEFANÍA Administration Furosemide 20 mg 12/19/24 09:00 12/21/24 09:09 Furosemide 20 Mg Tablet PO 20 mg QAM ESTEFANÍA Administration Guaifenesin 1,200 mg 12/19/24 09:00 12/21/24 21:41 Guaifenesin 12 Hr 600 Mg Tabcr PO 1,200 mg Q12HR ESTEFANÍA Administration Losartan Potassium 12.5 mg 12/19/24 09:00 12/21/24 09:08 Losartan Potassium 12.5 Mg Tablet PO 12.5 mg DAILY ESTEFANÍA Administration Multivitamins Therapeutic 1 tablet 12/19/24 09:00 12/21/24 09:07 Multivitamins Therapeutic Tab (*Bkc) PO 1 tablet DAILY ESTEFANÍA Administration (Ensifentrine [ 2.5 ml 12/19/24 20:00 12/21/24 20:47 Ohtuvayre] 3 Mg/2.5 INHALATION 01/18/25 19:59 2.5 ml Ml Suspension For Q12HRT ESTEFANÍA Administration Nebulization)Homemed Pantoprazole Sodium 40 mg 12/19/24 09:00 12/21/24 09:09 Pantoprazole 40 Mg Tablet PO 40 mg QAM ESTEFANÍA Administration Ticagrelor 90 mg 12/19/24 09:00 12/21/24 21:41 Ticagrelor 90 Mg Tablet PO 90 mg Q12HR ESTEFANÍA Administration Trazodone HCl 100 mg 12/19/24 21:00 12/21/24 21:42 Trazodone Hcl 50 Mg Tablet PO 100 mg HS ESTEFANÍA Administration Vitamin B Complex 1 cap 12/19/24 09:00 12/21/24 09:08 Vitamin B Complex Capsule PO 1 cap QAM ESTEFANÍA Administration Vitamin D 125 mcg 12/19/24 09:00 12/21/24 09:08 Cholecalciferol (Vitamin D3) 125 Mcg (5,000 Units) Tablet PO 125 mcg DAILY ESTEFANÍA Administration Radiology Results: ITS Impressions Chest X-Ray 12/18/24 17:31 IMPRESSION: Bilateral basal pneumonia. Underlying pulmonary edema versus pneumonitis. Labs Labs: Laboratory Results - last 24 hr 12/22/24 05:13 WBC 7.9 RBC 4.17 L Hgb 13.6 L Hct 39.1 L MCV 93.8 MCH 32.6 MCHC 34.8 RDW 13.0 Plt Count 208 MPV 8.1 Immature Gran % (Auto) 0.8 H Neut % (Auto) 54.4 Lymph % (Auto) 31.1 [place] % (Auto) 10.4 H Eos % (Auto) 2.8 Baso % (Auto) 0.5 Lymph # (Auto) 2.46 [place] # (Auto) 0.8 H Eos # (Auto) 0.2 Baso # (Auto) 0.0 Abs Immat Gran (auto) 0.06 H Absolute Neuts (auto) 4.3 Absolute Nucleated RBC 0.000 Nucleated RBC % 0.0 Sodium 134 L Potassium 3.6 Chloride 99 Carbon Dioxide 28 Anion Gap 7 BUN 16 Creatinine 0.82 Estim Creat Clear Calc 87 Estimated GFR > 60 Glucose 106 Calcium 9.1 Magnesium 2.0 Total Bilirubin 1.2 AST 22 ALT 18 Alkaline Phosphatase 57 Total Protein 6.7 Albumin 4.0
--- NOTE | 2024-12-22 08:00 | ECHO_ITS ---
Patient Info Name: Edgar Laguna Age: 64 years : 1960 Gender: Male Ht: 71 in Wt: 170 lbs BSA: 1.97 m2 HR: 99 bpm Technical Quality: Good Exam Date: 12/22/2024 8:25 AM Patient Status: I Admit Date: 12/18/2024 Exam Type: CA echo transesophageal Complete two-dimensional, color flow and Doppler transesophageal study is performed. Staff Referring Physician: Cuate Jane Spinner Iron: Sara Escobar Ordering Physician: Zion Freedman DO Attending Provider: Heather Hale Summary 1. Transesophageal echocardiogram. 2. Left ventricular chamber dimension is normal. 3. Left ventricular systolic function is normal with an ejection fraction of 60-65% by visual estimation. 4. The left ventricular diastolic function is indeterminate as it was not assessed. 5. There is mild aortic valve sclerosis. 6. The mitral valve has moderate anterior prolapse. 7. The posterior leaflet appears to be restricted. 8. There is severe posteriorly directed mitral valve regurgitation. Procedure Details Risks/benefits/alternative to ADIN discuss with patient and he is agreeable. He was monitored electrocardiographically, vitals. He was in normal rhythm at HR 75 bpm, BP 115/75 mmHg, pulse ox >90% throughout procedure. He was given Cetacaine spray x 2 to posterior oropharynx and Versed 2 mg and Fentanyl 25 mcg IV for conscious sedation. He swallowed probe without incident. Multiple images obtained. Agitated saline injection x 1. ADIN probe withdrawn and no blood on ADIN probe tip. Patient tolerated procedure well with no complications. Left Ventricle Left ventricular chamber dimension is normal. Left ventricular systolic function is normal with an ejection fraction of 60-65% by visual estimation. The left ventricular diastolic function is indeterminate as it was not assessed. Transesophageal echocardiogram. Right Ventricle Right ventricular chamber dimension is normal. Right ventricular systolic function is normal. Left Atria Left atrial chamber dimension is moderately enlarged. Right Atria Right atrial chamber dimension is normal. Atrial Septum Intact interatrial septum visualized by 2D and agitated saline imaging. Agitated saline injection opacified right side cardiac chambers without shunt to left side cardiac chambers. Atrial Appendage There is no thrombus visualized in the left atrial appendage. Aortic Valve The aortic valve is trileaflet. There is mild aortic valve sclerosis. There is no aortic valve stenosis. There is no aortic valve regurgitation. Pulmonic Valve There is no pulmonic regurgitation. Mitral Valve The mitral valve has moderate anterior prolapse. There is no mitral valve stenosis. There is severe posteriorly directed mitral valve regurgitation. The posterior leaflet appears to be restricted. Tricuspid Valve There is no tricuspid valve regurgitation. Pericardium/Pleural There is no pericardial effusion. Inferior Vena Cava Inferior vena cava is not well visualized. Aorta The aortic root size at the sinus of Valsalva is normal. Report Signatures
[2024-12-22] MEDS: IPRATROPIUM 0.5 MG/ALBUTEROL SULFATE 2.5 MG AMPUL.NEB 3 ML INHALATION ×2 (08:11→21:22)
[2024-12-22] MEDS: ENSIFENTRINE 2.5 EACH INHALATION ×2 (08:11→21:22)
[2024-12-22] MEDS: FLUTICASONE/UMECLIDIN/VILANTER 100-62.5-25 MCG ELLIPTA 1 PUFF INHALATION (08:11)
[2024-12-22] MEDS: fentaNYL CITRATE INJ (*CRX) 100 MCG/2 ML VIAL 25 MCG IV PUSH (08:55)
[2024-12-22] MEDS: MIDAZOLAM HCL (*CRX) 2 MG/2 ML VIAL IV PUSH (08:55)
[2024-12-22] MEDS: FUROSEMIDE 20 MG TABLET PO (10:13)
[2024-12-22] MEDS: ASPIRIN 81 MG ENTERIC TABLET PO (10:13)
[2024-12-22] MEDS: guaiFENesin 12 HR 600 MG TABCR 1200 MG PO ×2 (10:13→20:13)
[2024-12-22] MEDS: TICAGRELOR 90 MG TABLET PO ×2 (10:13→20:13)
[2024-12-22] MEDS: CHOLECALCIFEROL (VITAMIN D3) 125 MCG (5,000 UNITS) TABLET PO (10:14)
[2024-12-22] MEDS: PANTOPRAZOLE 40 MG TABLET PO (10:14)
[2024-12-22] MEDS: FOLIC ACID 0.4 MG TABLET PO (10:14)
[2024-12-22] MEDS: CALCIUM CARBONATE (OSCAL) 250 MG TABLET PO (10:14)
[2024-12-22] MEDS: VITAMIN B COMPLEX CAPSULE 1 CAP PO (10:14)
[2024-12-22] MEDS: MULTIVITAMINS THERAPEUTIC TAB (*BKC) 1 TABLET PO (10:14)
--- NOTE | 2024-12-22 11:25 | P.PNPL_ITS ---
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 20 Blood Pressure 104/72 Pulse Oximetry 96 95 Oxygen Delivery Room Air Oxygen Flow Rate Fraction of Inspired Oxygen 21 12/21/24 21:09 12/21/24 21:23 12/21/24 21:25 Temperature 36.6 C Pulse Rate 71 76 Respiratory Rate 20 20 Blood Pressure 121/76 Pulse Oximetry 96 Oxygen Delivery Room Air Oxygen Flow Rate Fraction of Inspired Oxygen 12/21/24 21:41 12/22/24 04:04 12/22/24 07:45 Temperature 36.6 C Pulse Rate 76 68 Respiratory Rate 20 Blood Pressure 104/63 Pulse Oximetry 96 Oxygen Delivery Room Air Oxygen Flow Rate Fraction of Inspired Oxygen 12/22/24 08:00 12/22/24 08:12 12/22/24 08:12 Temperature 36.5 C Pulse Rate 60 90 90 Respiratory Rate 16 20 Blood Pressure 102/74 Pulse Oximetry 96 95 Oxygen Delivery Room Air Oxygen Flow Rate Fraction of Inspired Oxygen 21 12/22/24 08:20 12/22/24 08:40 12/22/24 08:53 Temperature Pulse Rate 77 73 Respiratory Rate 20 18 18 Blood Pressure 112/77 115/80 Pulse Oximetry 95 98 Oxygen Delivery Oxygen Flow Rate 2 Fraction of Inspired Oxygen 12/22/24 08:55 12/22/24 09:00 12/22/24 09:05 Temperature Pulse Rate 90 78 74 Respiratory Rate 24 H 23 H 22 H Blood Pressure 159/102 H 123/95 H 131/99 H Pulse Oximetry 98 92 92 Oxygen Delivery Oxygen Flow Rate 2 2 2 Fraction of Inspired Oxygen 12/22/24 09:15 12/22/24 09:30 12/22/24 09:45 Temperature Pulse Rate 79 73 76 Respiratory Rate 19 20 12 Blood Pressure 110/77 107/74 99/73 L Pulse Oximetry 92 93 94 Oxygen Delivery Room Air Oxygen Flow Rate 2 2 Fraction of Inspired Oxygen 12/22/24 10:00 12/22/24 10:14 Temperature Pulse Rate 69 74 Respiratory Rate 16 Blood Pressure 107/69 Pulse Oximetry 94 Oxygen Delivery Room Air Oxygen Flow Rate Fraction of Inspired Oxygen Intake/Output Intake/Output: Intake & Output 12/19/24 12/20/24 12/21/24 12/22/24 23:59 23:59 23:59 23:59 Intake Total 730 1670 1270 300 Output Total 1950 Balance -1220 1670 1270 300 Meds/Results Medications: Active Medications Generic Name Dose Route Start Last Admin Trade Name Freq PRN Reason Stop Dose Admin Acetaminophen 650 mg 12/18/24 21:16 Acetaminophen 325 Mg Tablet PO Q6H PRN Mild Pain (1-3) or Fever Albuterol/Ipratropium 3 ml 12/19/24 14:32 12/22/24 08:11 Ipratropium 0.5 Mg/Albuterol Sulfate 2.5 Mg Ampul.Neb 3 Ml INHALATION 3 ml Q6HRT PRN Administration Wheezing Aripiprazole 2 mg 12/19/24 09:00 12/22/24 10:13 Aripiprazole 2 Mg Tablet PO 2 mg DAILY ESTEFANÍA Administration Aspirin 81 mg 12/19/24 08:00 12/22/24 10:13 Aspirin 81 Mg Enteric Tablet PO 81 mg DAILY@0800 ESTEFANÍA Administration Atorvastatin Calcium 40 mg 12/19/24 21:00 12/21/24 21:41 Atorvastatin 40 Mg Tablet BY MOUTH 40 mg HS ESTEFANÍA Administration Calcium Carbonate 250 mg 12/19/24 09:00 12/22/24 10:14 Calcium Carbonate (Oscal) 250 Mg Tablet PO 250 mg QAM ESTEFANÍA Administration Carvedilol 6.25 mg 12/19/24 09:00 12/22/24 10:14 Carvedilol 6.25 Mg Tablet BY MOUTH 6.25 mg Q12HR ESTEFANÍA Administration Fluticasone/Umeclidinium/Vilanterol 1 puff 12/19/24 08:00 12/22/24 08:11 Fluticasone/Umeclidin/Vilanter 100-62.5-25 Mcg Ellipta INHALATION 1 puff DAILYRT ESTEFANÍA Administration Folic Acid 0.4 mg 12/19/24 09:00 12/22/24 10:14 Folic Acid 0.4 Mg Tablet PO 0.4 mg QAM ESTEFANÍA Administration Furosemide 20 mg 12/19/24 09:00 12/22/24 10:13 Furosemide 20 Mg Tablet PO 20 mg QAM ESTEFANÍA Administration Guaifenesin 1,200 mg 12/19/24 09:00 12/22/24 10:13 Guaifenesin 12 Hr 600 Mg Tabcr PO 1,200 mg Q12HR ESTEFANÍA Administration Losartan Potassium 12.5 mg 12/19/24 09:00 12/22/24 10:20 Losartan Potassium 12.5 Mg Tablet PO Not Given DAILY ESTEFANÍA Multivitamins Therapeutic 1 tablet 12/19/24 09:00 12/22/24 10:14 Multivitamins Therapeutic Tab (*Bkc) PO 1 tablet DAILY ESTEFANÍA Administration (Ensifentrine [ 2.5 ml 12/19/24 20:00 12/22/24 08:11 Ohtuvayre] 3 Mg/2.5 INHALATION 01/18/25 19:59 2.5 ml Ml Suspension For Q12HRT ESTEFANÍA Administration Nebulization)Homemed Pantoprazole Sodium 40 mg 12/19/24 09:00 12/22/24 10:14 Pantoprazole 40 Mg Tablet PO 40 mg QAM ESTEFANÍA Administration Ticagrelor 90 mg 12/19/24 09:00 12/22/24 10:13 Ticagrelor 90 Mg Tablet PO 90 mg Q12HR ESTEFANÍA Administration Trazodone HCl 100 mg 12/19/24 21:00 12/21/24 21:42 Trazodone Hcl 50 Mg Tablet PO 100 mg HS ESTEFANÍA Administration Vitamin B Complex 1 cap 12/19/24 09:00 12/22/24 10:14 Vitamin B Complex Capsule PO 1 cap QAM ETSEFANÍA Administration Vitamin D 125 mcg 12/19/24 09:00 12/22/24 10:14 Cholecalciferol (Vitamin D3) 125 Mcg (5,000 Units) Tablet PO 125 mcg DAILY ESTEFANÍA Administration Radiology Results: ITS Impressions Chest X-Ray 12/18/24 17:31 IMPRESSION: Bilateral basal pneumonia. Underlying pulmonary edema versus pneumonitis. Labs Labs: Laboratory Results - last 24 hr 12/22/24 05:13 WBC 7.9 RBC 4.17 L Hgb 13.6 L Hct 39.1 L MCV 93.8 MCH 32.6 MCHC 34.8 RDW 13.0 Plt Count 208 MPV 8.1 Immature Gran % (Auto) 0.8 H Neut % (Auto) 54.4 Lymph % (Auto) 31.1 [place] % (Auto) 10.4 H Eos % (Auto) 2.8 Baso % (Auto) 0.5 Lymph # (Auto) 2.46 [place] # (Auto) 0.8 H Eos # (Auto) 0.2 Baso # (Auto) 0.0 Abs Immat Gran (auto) 0.06 H Absolute Neuts (auto) 4.3 Absolute Nucleated RBC 0.000 Nucleated RBC % 0.0 Sodium 134 L Potassium 3.6 Chloride 99 Carbon Dioxide 28 Anion Gap 7 BUN 16 Creatinine 0.82 Estim Creat Clear Calc 87 Estimated GFR > 60 Glucose 106 Calcium 9.1 Magnesium 2.0 Total Bilirubin 1.2 AST 22 ALT 18 Alkaline Phosphatase 57 Total Protein 6.7 Albumin 4.0
--- NOTE | 2024-12-22 13:13 | SUR.PREOP ---
Pt A&O x3. States he is aware that he needs to have heart catheterization and feels like he is back to himself after his procedure at 0853. Consent for heart catheterization signed. Pt called his sibling Cyrus Laguna as well. Pt's sibling was informed that pt had a procedure with sedation this AM and was going to sign consent for additional procedure. Pt's sibling states that he consents as well for pt to receive diagnostic test and treatment per MD judgement.
--- NOTE | 2024-12-22 14:47 | PM.IMPN ---
Progress Note: A&P Assessment and Plan (1) Acute respiratory failure with hypoxia and hypercapnia: Code(s): J96.01 - Acute respiratory failure with hypoxia; J96.02 - Acute respiratory failure with hypercapnia Status: Acute (2) Pneumonia: Code(s): J18.9 - Pneumonia, unspecified organism Status: Acute (3) COPD with emphysema: Code(s): J43.9 - Emphysema, unspecified Status: Acute (4) Diastolic dysfunction: Code(s): I51.89 - Other ill-defined heart diseases Status: Chronic (5) Ischemic cardiomyopathy: Code(s): I25.5 - Ischemic cardiomyopathy Status: Acute (6) Mitral valve regurgitation: Code(s): I34.0 - Nonrheumatic mitral (valve) insufficiency Status: Acute (7) Hyperglycemia: Code(s): R73.9 - Hyperglycemia, unspecified Status: Acute (8) Hypertension: Qualifiers: Hypertension type: primary hypertension Qualified Code(s): I10 - Essential (primary) hypertension Code(s): I10 - Essential (primary) hypertension Status: Chronic (9) Coronary artery disease: Code(s): I25.10 - Atherosclerotic heart disease of [place] coronary artery without angina pectoris Status: Acute Plan This is a 64-year-old male with chronic obstructive pulmonary disease, emphysema, ischemic cardiomyopathy with an EF as low as 30 to 35% though it has since normalized, diastolic dysfunction, coronary artery disease with history of stents to the ED LM into LAD and proximal to mid LAD, mitral valve regurgitation, hypertension, hyperlipidemia, gastroesophageal reflux disease, depression, and anxiety who presented to the emergency department via EMS with complaints of shortness of breath. He is known to the hospitalist service from an admission just 5 days ago in which he with shortness of breath and hypoxia for which he was treated with antibiotics, steroids, and diuretics to cover possible pneumonia, COPD, and CHF. He was discharged on azithromycin for 3 more days of which he has completed although he continues to have a productive cough productive of pulliam colored sputum, occasionally admixed with a small amount of bright red blood. Overall he is still not feeling well and his breathing is worse than his baseline. He has to stop to rest more frequently than usual. He has been using oxygen 2 L at nighttime as ordered and he has been diligent about monitoring his pulse ox which has been as low as 90% on his watch. Today he was out running errands and he reports getting increasingly short of breath although he was not exerting himself much. Rescue inhaler helped somewhat however not long prior to arrival his shortness of breath became acutely worse and he called 911. On EMS arrival his SpO2 was reportedly 65% and he was noted to be cool and clammy. He was placed on CPAP and was administered a nebulizer treatment and magnesium sulfate en route to the hospital. In the ED: He was afebrile on arrival with a blood pressure 152/78, pulse 116, respiratory rate 26, SpO2 95% on CPAP. Labs were significant for WBC count of 11.2, sodium 132, glucose 278, proBNP 307, troponin less than 0.012. ABG showed a pH of 7.315, pCO2 46.3, PO2 93.1, HC03 23.1. Chest x-ray showed bilateral basal pneumonia and underlying pulmonary edema versus pneumonitis. EKG showed sinus tachycardia without concerning ST segment changes. CPAP was transitioned to BiPAP. He was given albuterol 10 mg, methylprednisolone 125 mg IV, and levofloxacin 750 mg. He is being admitted in this setting for further treatment. BiPAP has since then been removed. Acute hypoxic respiratory failure on oxygen via nasal cannula along with requirement of BiPAP upon arrival to the ED. chest x-ray with findings of bilateral basal pneumonia. Suspected to be she related to pulmonary edema rather than pneumonia. Also does not sound like COPD exacerbation. Currently improved and down to room air COPD exacerbation continue scheduled bronchodilators. Did receive a dose of methylprednisolone in the ER. Not currently wheezing. Hold off on any further steroids bilateral basal pneumonia currently on Levaquin will continue that. Get sputum culture. Recent respiratory pathogen panel was negative. Stop Levaquin as suspicion for pneumonia is low Ischemic cardiomyopathy ejection fraction low as 30-35% since since then resolved with diastolic dysfunction. Repeat echo showed moderate to severe mitral regurgitation. He seems to have valvular heart disease with now severe mitral regurgitation. He has worsening mitral regurgitation over the past few months course. Consulted Cardiology for evaluation may need evaluation for underlying ischemic etiology. He will need follow-up with valve specialist as an outpatient basis. Discussed with Cardiology. Status post ADIN which showed severe mitral regurgitation posteriorly. He is planned for a right and left heart catheterization tomorrow. Coronary artery disease with history of stents mitral valve regurgitation now has progressed to moderate to severe over few months hypertension hyperlipidemia GERD Anxiety depression DVT prophylaxis Lovenox Code status modified code Subjective Date/time seen: 12/22/24 14:47 Interval history: ADIN done today. Plan for heart catheterization tomorrow. No new complaints. Review of Systems Review of Systems: All systems reviewed & are unremarkable except as noted in HPI and below Exam Narrative: General: Nontoxic-appearing male sitting up in bed in no acute distress. HEENT: PERRL, EOMI. Sclera anicteric. Oral mucosa moist. Oropharynx clear. Neck: Supple. No JVD. Respiratory: Respirations are nonlabored he is speaking in full sentences. Lung sounds diminished bilaterally Cardiovascular: Regular rate and rhythm with S1-S2. Soft systolic murmur at the apex. Gastrointestinal: Abdomen is soft, nontender, and nondistended with positive bowel sounds. Skin: Warm and dry. No rash or lesions on limited exam. Extremities: No cyanosis, clubbing, or edema. Radial and pedal pulses intact. Neurological: Alert. Cranial nerves 2-12 are grossly intact. No gross focal deficits to casual conversation. Psychiatric: Pleasant and cooperative with normal mood and affect. Judgment and insight intact. Objective Data Vital Signs Vital Signs: Vital Signs - 24 hr 12/21/24 14:50 12/21/24 20:45 12/21/24 20:47 Temperature 97.4 F L Pulse Rate 74 70 70 Respiratory Rate 18 20 Blood Pressure 104/72 Pulse Oximetry 96 95 Oxygen Delivery Room Air Oxygen Flow Rate Fraction of Inspired Oxygen 12/21/24 21:09 12/21/24 21:23 12/21/24 21:25 Temperature 97.9 F Pulse Rate 71 76 Respiratory Rate 20 20 Blood Pressure 121/76 Pulse Oximetry 96 Oxygen Delivery Room Air Oxygen Flow Rate Fraction of Inspired Oxygen 12/21/24 21:41 12/22/24 04:04 12/22/24 07:45 Temperature 97.8 F Pulse Rate 76 68 Respiratory Rate 20 Blood Pressure 104/63 Pulse Oximetry 96 Oxygen Delivery Room Air Oxygen Flow Rate Fraction of Inspired Oxygen 12/22/24 08:00 12/22/24 08:12 12/22/24 08:12 Temperature 97.7 F Pulse Rate 60 90 90 Respiratory Rate 16 20 Blood Pressure 102/74 Pulse Oximetry 96 95 Oxygen Delivery Room Air Oxygen Flow Rate Fraction of Inspired Oxygen 12/22/24 08:20 12/22/24 08:40 12/22/24 08:53 Temperature Pulse Rate 77 73 Respiratory Rate 20 18 18 Blood Pressure 112/77 115/80 Pulse Oximetry 95 98 Oxygen Delivery Oxygen Flow Rate 2 Fraction of Inspired Oxygen 12/22/24 08:55 12/22/24 09:00 12/22/24 09:05 Temperature Pulse Rate 90 78 74 Respiratory Rate 24 H 23 H 22 H Blood Pressure 159/102 H 123/95 H 131/99 H Pulse Oximetry 98 92 92 Oxygen Delivery Oxygen Flow Rate 2 2 2 Fraction of Inspired Oxygen 12/22/24 09:15 12/22/24 09:30 12/22/24 09:45 Temperature Pulse Rate 79 73 76 Respiratory Rate 19 20 12 Blood Pressure 110/77 107/74 99/73 L Pulse Oximetry 92 93 94 Oxygen Delivery Room Air Oxygen Flow Rate 2 2 Fraction of Inspired Oxygen 12/22/24 10:00 12/22/24 10:14 Temperature Pulse Rate 69 74 Respiratory Rate 16 Blood Pressure 107/69 Pulse Oximetry 94 Oxygen Delivery Room Air Oxygen Flow Rate Fraction of Inspired Oxygen Intake/Output Intake/Output: Intake & Output 12/19/24 12/20/24 12/21/24 12/22/24 23:59 23:59 23:59 23:59 Intake Total 730 1670 1270 300 Output Total 1950 Balance -1220 1670 1270 300 Meds/Results Medications: Active Medications Generic Name Dose Route Start Last Admin Trade Name Freq PRN Reason Stop Dose Admin Acetaminophen 650 mg 12/18/24 21:16 Acetaminophen 325 Mg Tablet PO Q6H PRN Mild Pain (1-3) or Fever Albuterol/Ipratropium 3 ml 12/19/24 14:32 12/22/24 08:11 Ipratropium 0.5 Mg/Albuterol Sulfate 2.5 Mg Ampul.Neb 3 Ml INHALATION 3 ml Q6HRT PRN Administration Wheezing Aripiprazole 2 mg 12/19/24 09:00 12/22/24 10:13 Aripiprazole 2 Mg Tablet PO 2 mg DAILY ESTEFANÍA Administration Aspirin 81 mg 12/19/24 08:00 12/22/24 10:13 Aspirin 81 Mg Enteric Tablet PO 81 mg DAILY@0800 ESTEFANÍA Administration Atorvastatin Calcium 40 mg 12/19/24 21:00 12/21/24 21:41 Atorvastatin 40 Mg Tablet BY MOUTH 40 mg HS ESTEFANÍA Administration Calcium Carbonate 250 mg 12/19/24 09:00 12/22/24 10:14 Calcium Carbonate (Oscal) 250 Mg Tablet PO 250 mg QAM ESTEFANÍA Administration Carvedilol 6.25 mg 12/19/24 09:00 12/22/24 10:14 Carvedilol 6.25 Mg Tablet BY MOUTH 6.25 mg Q12HR ESTEFANÍA Administration Fluticasone/Umeclidinium/Vilanterol 1 puff 12/19/24 08:00 12/22/24 08:11 Fluticasone/Umeclidin/Vilanter 100-62.5-25 Mcg Ellipta INHALATION 1 puff DAILYRT ESTEFANÍA Administration Folic Acid 0.4 mg 12/19/24 09:00 12/22/24 10:14 Folic Acid 0.4 Mg Tablet PO 0.4 mg QAM ESTEFANÍA Administration Furosemide 20 mg 12/19/24 09:00 12/22/24 10:13 Furosemide 20 Mg Tablet PO 20 mg QAM ESTEFANÍA Administration Guaifenesin 1,200 mg 12/19/24 09:00 12/22/24 10:13 Guaifenesin 12 Hr 600 Mg Tabcr PO 1,200 mg Q12HR ESTEFANÍA Administration Losartan Potassium 12.5 mg 12/19/24 09:00 12/22/24 10:20 Losartan Potassium 12.5 Mg Tablet PO Not Given DAILY ESTEFANÍA Multivitamins Therapeutic 1 tablet 12/19/24 09:00 12/22/24 10:14 Multivitamins Therapeutic Tab (*Bkc) PO 1 tablet DAILY ESTEFANÍA Administration (Ensifentrine [ 2.5 ml 12/19/24 20:00 12/22/24 08:11 Ohtuvayre] 3 Mg/2.5 INHALATION 01/18/25 19:59 2.5 ml Ml Suspension For Q12HRT ESTEFANÍA Administration Nebulization)Homemed Pantoprazole Sodium 40 mg 12/19/24 09:00 12/22/24 10:14 Pantoprazole 40 Mg Tablet PO 40 mg QAM ESTEFANÍA Administration Ticagrelor 90 mg 12/19/24 09:00 12/22/24 10:13 Ticagrelor 90 Mg Tablet PO 90 mg Q12HR ESTEFANÍA Administration Trazodone HCl 100 mg 12/19/24 21:00 12/21/24 21:42 Trazodone Hcl 50 Mg Tablet PO 100 mg HS ESTEFANÍA Administration Vitamin B Complex 1 cap 12/19/24 09:00 12/22/24 10:14 Vitamin B Complex Capsule PO 1 cap QAM ESTEFANÍA Administration Vitamin D 125 mcg 12/19/24 09:00 12/22/24 10:14 Cholecalciferol (Vitamin D3) 125 Mcg (5,000 Units) Tablet PO 125 mcg DAILY ESTEFANÍA Administration Radiology Results: ITS Impressions Chest X-Ray 12/22/24 13:41 IMPRESSION: No acute cardiopulmonary pathology. Labs Labs: Laboratory Results - last 24 hr 12/22/24 05:13 WBC 7.9 RBC 4.17 L Hgb 13.6 L Hct 39.1 L MCV 93.8 MCH 32.6 MCHC 34.8 RDW 13.0 Plt Count 208 MPV 8.1 Immature Gran % (Auto) 0.8 H Neut % (Auto) 54.4 Lymph % (Auto) 31.1 [place] % (Auto) 10.4 H Eos % (Auto) 2.8 Baso % (Auto) 0.5 Lymph # (Auto) 2.46 [place] # (Auto) 0.8 H Eos # (Auto) 0.2 Baso # (Auto) 0.0 Abs Immat Gran (auto) 0.06 H Absolute Neuts (auto) 4.3 Absolute Nucleated RBC 0.000 Nucleated RBC % 0.0 Sodium 134 L Potassium 3.6 Chloride 99 Carbon Dioxide 28 Anion Gap 7 BUN 16 Creatinine 0.82 Estim Creat Clear Calc 87 Estimated GFR > 60 Glucose 106 Calcium 9.1 Magnesium 2.0 Total Bilirubin 1.2 AST 22 ALT 18 Alkaline Phosphatase 57 Total Protein 6.7 Albumin 4.0
--- NOTE | 2024-12-22 15:14 | P.SEDATION_ITS ---
Moderate Sedation Note-Pt Data Patient Data Allergies Allergy/AdvReac Type Severity Reaction Status Date / Time No Known Allergies Allergy Verified 12/18/24 17:16 Home Medications ?Medication ?Instructions ?Recorded ?Confirmed ?Type trazodone 100 mg tablet 100 mg PO HS 11/10/22 12/18/24 History aspirin 81 mg tablet,delayed 81 mg PO DAILY@0800 #90 tabs 06/19/23 12/18/24 Rx release calcium 100 mg capsule 100 mg PO DAILY 06/19/23 12/18/24 History losartan 25 mg tablet 12.5 mg (1/2 x 25 mg) PO DAILY #90 11/21/23 12/18/24 Rx tabs Trelegy Ellipta 100 mcg-62.5 1 inh inhalation QAM #60 ea 03/06/24 12/18/24 Rx mcg-25 mcg powder for inhalation ([id number]) multivitamin (Daily Multi-Vitamin 1 tablet PO DAILY 03/13/24 12/18/24 History tablet) albuterol sulfate 1.25 mg/3 mL 1.25 mg (3 mL) inhalation Q6H PRN 07/31/24 12/18/24 Rx solution for nebulization shortness of breath or wheezing #360 mL alendronate 70 mg tablet 70 mg PO WEEKLY #12 tabs 09/08/24 12/18/24 Rx aripiprazole 2 mg tablet 2 mg PO DAILY 09/08/24 12/18/24 History omeprazole 20 mg capsule,delayed 20 mg PO DAILY #90 caps 09/08/24 12/18/24 Rx release vitamin B complex-folic acid 0.4 1 tablet PO DAILY 09/08/24 12/18/24 History mg tablet (B Complex 1 (with folic acid)) ticagrelor 90 mg tablet (Brilinta) 90 mg PO Q12HR #180 tabs 09/24/24 12/18/24 Rx ensifentrine 3 mg/2.5 mL 2.5 ml inhalation QAM AND QPM #150 10/29/24 12/18/24 Rx suspension for nebulization mL (Ohtuvayre) furosemide 20 mg tablet 20 mg PO QAM #30 tabs 11/19/24 12/18/24 Rx carvedilol 6.25 mg tablet See Rx Instructions .Route 11/26/24 12/18/24 Rx .COMPLEX #60 tabs albuterol sulfate 90 mcg/actuation 2 puff inhalation Q6H PRN 12/13/24 12/18/24 History aerosol inhaler shortness of breath or wheezing cholecalciferol (vitamin D3) 125 5,000 unit PO DAILY 12/13/24 12/18/24 History mcg (5,000 unit) capsule benzonatate 100 mg capsule 100 mg PO TID PRN Cough #30 caps 12/15/24 12/18/24 Rx guaifenesin 600 mg tablet, 600 mg PO Q12HR #30 tabs 12/15/24 12/18/24 Rx extended release 12 hr (Mucus Relief ER) atorvastatin 80 mg tablet See Rx Instructions .Route 12/16/24 12/18/24 Rx .COMPLEX #30 tabs Current Medications: Active Medications Acetaminophen (Acetaminophen 325 Mg Tablet) 650 mg PO Q6H PRN PRN Reason: Mild Pain (1-3) or Fever Albuterol/Ipratropium (Ipratropium 0.5 Mg/Albuterol Sulfate 2.5 Mg Ampul.Neb 3 Ml) 3 ml INHALATION Q6HRT PRN PRN Reason: Wheezing Last Admin: 12/22/24 08:11 Dose: 3 ml Aripiprazole (Aripiprazole 2 Mg Tablet) 2 mg PO DAILY [facility] Last Admin: 12/22/24 10:13 Dose: 2 mg Aspirin (Aspirin 81 Mg Enteric Tablet) 81 mg PO DAILY@0800 [facility] Last Admin: 12/22/24 10:13 Dose: 81 mg Atorvastatin Calcium (Atorvastatin 40 Mg Tablet) 40 mg BY MOUTH HS [facility] Last Admin: 12/21/24 21:41 Dose: 40 mg Calcium Carbonate (Calcium Carbonate (Oscal) 250 Mg Tablet) 250 mg PO QAM [facility] Last Admin: 12/22/24 10:14 Dose: 250 mg Carvedilol (Carvedilol 6.25 Mg Tablet) 6.25 mg BY MOUTH Q12HR [facility] Last Admin: 12/22/24 10:14 Dose: 6.25 mg Fluticasone/Umeclidinium/Vilanterol (Fluticasone/Umeclidin/Vilanter 100-62.5-25 Mcg Ellipta) 1 puff INHALATION DAILYRT [facility] Last Admin: 12/22/24 08:11 Dose: 1 puff Folic Acid (Folic Acid 0.4 Mg Tablet) 0.4 mg PO QAM [facility] Last Admin: 12/22/24 10:14 Dose: 0.4 mg Furosemide (Furosemide 20 Mg Tablet) 20 mg PO QAM [facility] Last Admin: 12/22/24 10:13 Dose: 20 mg Guaifenesin (Guaifenesin 12 Hr 600 Mg Tabcr) 1,200 mg PO Q12HR [facility] Last Admin: 12/22/24 10:13 Dose: 1,200 mg Sodium Chloride (Normal Saline Iv) 1,000 mls @ 50 mls/hr IV CONT .Q20H ONE Stop: 12/23/24 11:12 Losartan Potassium (Losartan Potassium 12.5 Mg Tablet) 12.5 mg PO DAILY [facility] Last Admin: 12/22/24 10:20 Dose: Not Given Multivitamins Therapeutic (Multivitamins Therapeutic Tab (*Bkc)) 1 tablet PO DAILY [facility] Last Admin: 12/22/24 10:14 Dose: 1 tablet (Ensifentrine [ Ohtuvayre] 3 Mg/2.5 Ml Suspension For Nebulization)Homemed 2.5 ml INHALATION Q12HRT [facility] Stop: 01/18/25 19:59 Last Admin: 12/22/24 08:11 Dose: 2.5 ml Pantoprazole Sodium (Pantoprazole 40 Mg Tablet) 40 mg PO QAM [facility] Last Admin: 12/22/24 10:14 Dose: 40 mg Ticagrelor (Ticagrelor 90 Mg Tablet) 90 mg PO Q12HR [facility] Last Admin: 12/22/24 10:13 Dose: 90 mg Trazodone HCl (Trazodone Hcl 50 Mg Tablet) 100 mg PO HS [facility] Last Admin: 12/21/24 21:42 Dose: 100 mg Vitamin B Complex (Vitamin B Complex Capsule) 1 cap PO QAM [facility] Last Admin: 12/22/24 10:14 Dose: 1 cap Vitamin D (Cholecalciferol (Vitamin D3) 125 Mcg (5,000 Units) Tablet) 125 mcg PO DAILY [facility] Last Admin: 12/22/24 10:14 Dose: 125 mcg Sedation/Anesthesia: No previous sedation/anesthesia problems (including family history). [facility] Past Medical History Medical History Ischemic cardiomyopathy EF is low as 30 to 35% in June 2023; improved to 60 to 65% on echo obtained in August 2023. Mitral valve regurgitation COPD with emphysema Coronary artery disease Non-STEMI (non-ST elevated myocardial infarction) Pneumonia Hypertension Chronic hyponatremia Thoracic compression fracture Gastroesophageal reflux disease Osteoporosis Heavy alcohol use Anxiety and depression has previously undergone ECT treatments Hypercholesteremia Former smoker Surgical History Surgical History History of cataract extraction History of coronary artery stent placement (06/2023) stents to the LM into LAD and proximal to mid LAD History of tonsillectomy Family History Family History Father Aneurysm Grandparent Black lung Social History Social History Social History: Surrogate medical decision maker: Valeriano Laguna, sibling. Code status: Modified code, no intubation. Smoking packs per day: 1.5 Smoking cigarettes per day: 30.0 Years smoked: 42 Smoking pack-years: 63.00 Smoking status: Former smoker Tobacco type: cigarettes Second hand tobacco smoke exposure: No Smoking end date: 06/11/19 Alcohol intake: current Drinks per week: 6 Alcohol use details: wine Substance use: current Substance use type: marijuana Last use: Sunday Do You Feel Safe in your Home?: Yes Lack of Transportation: No Lack of Food: Never True Current Housing: I Have Housing Concerned About Future Housing: No Difficulty Paying Gas/Electric Bills: No Difficulty Paying for Meds: No Currently Unemployed: No Education: Master's Degree or Higher Difficulty w/ Childcare or Family Care: No Living arrangements: alone Additional living arrangements comments: Lives alone in [place]. 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 Spiritual care concerns: No Mod Sed Physical Exam Physical Exam Pre Procedural Exam: Normal: Heart Size, Heart Rate and Heart Rhythm and Variation: Lungs (decreased ) Hours since solid foods: 15 Hours since liquid intake: 15 Mallampati Classification: class II Internal Medicine - PN: Obj Da Vital Signs Vital Signs: Vital Signs - 24 hr 12/21/24 20:45 12/21/24 20:47 12/21/24 21:09 Temperature Pulse Rate 70 70 71 Respiratory Rate 20 20 Blood Pressure Pulse Oximetry 95 Oxygen Delivery Room Air Oxygen Flow Rate Fraction of Inspired Oxygen 12/21/24 21:23 07/13/25 21:25 12/21/24 21:41 Temperature 36.6 C Pulse Rate 76 76 Respiratory Rate 20 Blood Pressure 121/76 Pulse Oximetry 96 Oxygen Delivery Room Air Oxygen Flow Rate Fraction of Inspired Oxygen 12/22/24 04:04 12/22/24 07:45 12/22/24 08:00 Temperature 36.6 C 36.5 C Pulse Rate 68 60 Respiratory Rate 20 16 Blood Pressure 104/63 102/74 Pulse Oximetry 96 96 Oxygen Delivery Room Air Oxygen Flow Rate Fraction of Inspired Oxygen 12/22/24 08:12 12/22/24 08:12 12/22/24 08:20 Temperature Pulse Rate 90 90 Respiratory Rate 20 20 Blood Pressure Pulse Oximetry 95 Oxygen Delivery Room Air Oxygen Flow Rate Fraction of Inspired Oxygen 12/22/24 08:40 12/22/24 08:53 12/22/24 08:55 Temperature Pulse Rate 77 73 90 Respiratory Rate 18 18 24 H Blood Pressure 112/77 115/80 159/102 H Pulse Oximetry 95 98 98 Oxygen Delivery Oxygen Flow Rate 2 2 Fraction of Inspired Oxygen 12/22/24 09:00 12/22/24 09:05 12/22/24 09:15 Temperature Pulse Rate 78 74 79 Respiratory Rate 23 H 22 H 19 Blood Pressure 123/95 H 131/99 H 110/77 Pulse Oximetry 92 92 92 Oxygen Delivery Oxygen Flow Rate 2 2 2 Fraction of Inspired Oxygen 12/22/24 09:30 12/22/24 09:45 12/22/24 10:00 Temperature Pulse Rate 73 76 69 Respiratory Rate 20 12 16 Blood Pressure 107/74 99/73 L 107/69 Pulse Oximetry 93 94 94 Oxygen Delivery Room Air Room Air Oxygen Flow Rate 2 Fraction of Inspired Oxygen 12/22/24 10:14 Temperature Pulse Rate 74 Respiratory Rate Blood Pressure Pulse Oximetry Oxygen Delivery Oxygen Flow Rate Fraction of Inspired Oxygen Intake/Output Intake/Output: Intake & Output 12/19/24 12/20/24 12/21/24 12/22/24 23:59 23:59 23:59 23:59 Intake Total 730 1670 1270 300 Output Total 1950 Balance -1220 1670 1270 300 Meds/Results Medications: Active Medications Generic Name Dose Route Start Last Admin Trade Name Freq PRN Reason Stop Dose Admin Acetaminophen 650 mg 12/18/24 21:16 Acetaminophen 325 Mg Tablet PO Q6H PRN Mild Pain (1-3) or Fever Albuterol/Ipratropium 3 ml 12/19/24 14:32 12/22/24 08:11 Ipratropium 0.5 Mg/Albuterol Sulfate 2.5 Mg Ampul.Neb 3 Ml INHALATION 3 ml Q6HRT PRN Administration Wheezing Aripiprazole 2 mg 12/19/24 09:00 12/22/24 10:13 Aripiprazole 2 Mg Tablet PO 2 mg DAILY ESTEFANÍA Administration Aspirin 81 mg 12/19/24 08:00 12/22/24 10:13 Aspirin 81 Mg Enteric Tablet PO 81 mg DAILY@0800 ESTEFANÍA Administration Atorvastatin Calcium 40 mg 12/19/24 21:00 12/21/24 21:41 Atorvastatin 40 Mg Tablet BY MOUTH 40 mg HS ESTEFANÍA Administration Calcium Carbonate 250 mg 12/19/24 09:00 12/22/24 10:14 Calcium Carbonate (Oscal) 250 Mg Tablet PO 250 mg QAM ESTEFANÍA Administration Carvedilol 6.25 mg 12/19/24 09:00 12/22/24 10:14 Carvedilol 6.25 Mg Tablet BY MOUTH 6.25 mg Q12HR ESTEFANÍA Administration Fluticasone/Umeclidinium/Vilanterol 1 puff 12/19/24 08:00 12/22/24 08:11 Fluticasone/Umeclidin/Vilanter 100-62.5-25 Mcg Ellipta INHALATION 1 puff DAILYRT ESTEFANÍA Administration Folic Acid 0.4 mg 12/19/24 09:00 12/22/24 10:14 Folic Acid 0.4 Mg Tablet PO 0.4 mg QAM ESTEFANÍA Administration Furosemide 20 mg 12/19/24 09:00 12/22/24 10:13 Furosemide 20 Mg Tablet PO 20 mg QAM ESTEFANÍA Administration Guaifenesin 1,200 mg 12/19/24 09:00 12/22/24 10:13 Guaifenesin 12 Hr 600 Mg Tabcr PO 1,200 mg Q12HR ESTEFANÍA Administration Sodium Chloride 1,000 mls @ 50 mls/hr 12/22/24 15:13 Normal Saline Iv IV CONT 12/23/24 11:12 .Q20H ONE Losartan Potassium 12.5 mg 12/19/24 09:00 12/22/24 10:20 Losartan Potassium 12.5 Mg Tablet PO Not Given DAILY ESTEFANÍA Multivitamins Therapeutic 1 tablet 12/19/24 09:00 12/22/24 10:14 Multivitamins Therapeutic Tab (*Bkc) PO 1 tablet DAILY ESTEFANÍA Administration (Ensifentrine [ 2.5 ml 12/19/24 20:00 12/22/24 08:11 Ohtuvayre] 3 Mg/2.5 INHALATION 01/18/25 19:59 2.5 ml Ml Suspension For Q12HRT ESTEFANÍA Administration Nebulization)Homemed Pantoprazole Sodium 40 mg 12/19/24 09:00 12/22/24 10:14 Pantoprazole 40 Mg Tablet PO 40 mg QAM ESTEFANÍA Administration Ticagrelor 90 mg 12/19/24 09:00 12/22/24 10:13 Ticagrelor 90 Mg Tablet PO 90 mg Q12HR ESTEFANÍA Administration Trazodone HCl 100 mg 12/19/24 21:00 12/21/24 21:42 Trazodone Hcl 50 Mg Tablet PO 100 mg HS ESTEFANÍA Administration Vitamin B Complex 1 cap 12/19/24 09:00 12/22/24 10:14 Vitamin B Complex Capsule PO 1 cap QAM ESTEFANÍA Administration Vitamin D 125 mcg 12/19/24 09:00 12/22/24 10:14 Cholecalciferol (Vitamin D3) 125 Mcg (5,000 Units) Tablet PO 125 mcg DAILY ESTEFANÍA Administration Radiology Results: ITS Impressions Chest X-Ray 12/22/24 13:41 IMPRESSION: No acute cardiopulmonary pathology. Labs 12/22/24 05:13 12/22/24 05:13 Labs: Laboratory Results - last 24 hr 12/22/24 05:13 WBC 7.9 RBC 4.17 L Hgb 13.6 L Hct 39.1 L MCV 93.8 MCH 32.6 MCHC 34.8 RDW 13.0 Plt Count 208 MPV 8.1 Immature Gran % (Auto) 0.8 H Neut % (Auto) 54.4 Lymph % (Auto) 31.1 [place] % (Auto) 10.4 H Eos % (Auto) 2.8 Baso % (Auto) 0.5 Lymph # (Auto) 2.46 [place] # (Auto) 0.8 H Eos # (Auto) 0.2 Baso # (Auto) 0.0 Abs Immat Gran (auto) 0.06 H Absolute Neuts (auto) 4.3 Absolute Nucleated RBC 0.000 Nucleated RBC % 0.0 Sodium 134 L Potassium 3.6 Chloride 99 Carbon Dioxide 28 Anion Gap 7 BUN 16 Creatinine 0.82 Estim Creat Clear Calc 87 Estimated GFR > 60 Glucose 106 Calcium 9.1 Magnesium 2.0 Total Bilirubin 1.2 AST 22 ALT 18 Alkaline Phosphatase 57 Total Protein 6.7 Albumin 4.0 ASA Classification/Sedation ASA Classification/Sedation ASA Class: III Emergent: No Risks: Risks, benefits and alternatives explained and patient/family accepted plan for sedation. Patient re-evaluated immediately prior to sedation.
--- NOTE | 2024-12-22 15:14 | P.PCNCC_ITS ---
Cardiac Cath Procedure Note Date of procedure:: 12/22/24 Performing physician:: CATHETERIZATION LABORATORY REPORT Procedure Date: 12/22/2024 Referring Physician: Dr. Freedman Anesthesia: Versed and Fentanyl were ordered and given in my presence at 1420, procedure ended at 1508. Supervision of nurse, Laurie Gray monitored moderate sedation with 1mg Versed and 100mcg Fentanyl was provided for 48 minutes. Pre-op Diagnosis: Severe mitral regurgitation Post-op Diagnosis: Severe mitral regurgitation Obstructive 3 vessel CAD Procedure(s): Left heart catheterization with coronary angiography Right heart catheterization Access Site: Right radial artery Right brachial vein Right femoral vein Brief History and Clinical Indications: 64-year-old man with COPD and CAD status post PCI from mid LAD to left main found to have severe mitral regurgitation and acute diastolic heart failure due to define his coronary anatomy prior to surgical valve correction. All risks, benefits and alternatives to left heart catheterization with or without percutaneous coronary intervention was discussed at length with the patient. Risk of complications including but not limited to bleeding, infection, arrhythmia, stroke, worsening kidney function, blood loss, groin hematoma, limb loss, emergency coronary artery bypass grafting, and even were discussed with the patient and all questions were answered. The patient understood and wished to proceed. Time out called, patient name, date of , medical record number, allergies, procedure performed, identify Telecom Specialist, patient and staff member concurred with accurate data, procedure carried on. Findings: LEFT HEART CATHETERIZATION FINDINGS: 1. Left main: The left main coronary artery is widely patent without any significant obstructive disease. There is a patent stent in mid body of the left main extending into the LAD. 2. Left anterior descending: The LAD has a heavily calcified 70% focal in-stent restenoses. The distal portion of the stent has calcific 50% in-stent restenoses. The remainder of the LAD is angiographically free of significant disease. 3. Left circumflex: The left circumflex artery is a large caliber codominant vessel that provides 2 OM branches. The left circumflex at the ostium has a heavily calcified 70% stenosis. OM1 is small caliber vessel that has a 60-70% stenosis. OM2 is another small caliber vessel with diffuse 50-60% stenosis. 4. Right coronary artery: The RCA is a moderate caliber dominant vessel with 80% proximal focal stenosis. 5. Left ventricle: A. End-diastolic pressure 6 mmHg. B. LV gram deferred. C. No significant gradient across aortic valve on catheter pullback. 6. Opening AO pressure 106/61 and closing AO pressure 109/60 RIGHT HEART CATHETERIZATION FINDINGS: Pressures (mmHg): RA: 5 RV: 31/3 Left PA: 27/11 (18) Right PA: 28/10 (18) Left PCWP: 7 (v 10) Right PCWP: 13 (v 17) Saturations (%): PA: 65.2 Arterial: 91 CO/CI: Navid: 5.1/2.6 Description of Procedure: Informed consent signed and placed in the chart. Patient transferred to manager labor delivery room. Prepped and draped in usual sterile fashion. 2% lidocaine injected subcutaneously in right brachial area. Right review vein was accessed using micropuncture technique via ultrasound guidance. 7FR sheath placed. Given difficulties advancing J-wire, we use a Versacore wire that was able to be advanced into the IVC through the right atrium and we exchanged the Versacore for a [place] wire via a 4 [place] glide catheter. However as we have managed the 7 [place], we were met with resistance and converted to femoral approach for the right heart catheterization. 2% lidocaine in right groin area. Micropuncture needle used to access right femoral vein with Seldinger technique under ultrasound and fluoroscopic guidance. J wire advanced, micropuncture cannula placed, and exchanged out for a 7 [place] sheath. The [place]-Zev catheter was then advanced into the right atrium, right ventricle, pulmonary artery, left pulmonary artery, right pulmonary artery, and oximetry was obtained from the main pulmonary artery. Wedge pressure were obtained from both sides given eccentric nature of the severe mitral regurgitation. Attention was then turned to the coronary catheterization part of the procedure. 2% lidocaine injected subcutaneously in right wrist area. 22-gauge venipuncture catheter used to access the right radial artery with the Seldinger technique. 6- FR slender sheath placed in right radial artery. Nitroglycerin 200mcg, Verapamil 2.5mg, and Heparin 5000U was given intraarterial through the sheath. J wire advanced under fluoroscopy 5F TIG diagnostic catheter engaged Left Main Coronary Artery. 5F TIG diagnostic catheter engaged Right Coronary Artery Multiple orthogonal angiogram obtained and reviewed 5F TIG diagnostic catheter crossed aortic valve to obtain LVEDP, LV angiogram deferred. Hemostasis was achieved by application of TR band. Assessment: Obstructive 3 vessel coronary artery disease Normal pulmonary pressures Post Operative Condition: Stable No significant blood loss Disposition: Floor Plan: The patient will be monitored in the recovery area. The above findings were discussed with the referring physician. Continue aggressive medical therapy and risk factor modification. Yfn Loomis Interventional Cardiology
--- NOTE | 2024-12-22 15:14 | WPDHPUPDATE1 ---
History and Physical Update Update Date/Time: 12/22/24 14:00 History and Physical has been reviewed, including an updated exam of the patient. There are NO changes in the patient's condition. Risks, benefits, and alternatives have been discussed and questions answered. Patient agrees to proceed with procedure.
[2024-12-22] MEDS: SODIUM CHLORIDE 0.9% IV 250 ML 50 ML IVPB (16:13)
--- NOTE | 2024-12-22 18:15 | SUR.PHASEII ---
Right upper extremity above brachial insertion site found by this RN to be swollen and tender to the touch. Called Dr. Loomis and discussed findings. Dr. Loomis ordered a stat ultrasound on the upper extremity and for this RN to wrap upper extremity with compression dressing.
[2024-12-22] MEDS: ATORVASTATIN 40 MG TABLET BY MOUTH (20:14)
[2024-12-22] MEDS: ACETAMINOPHEN 325 MG TABLET 650 MG PO (22:38)
[2024-12-23] VITALS (22 sets, daily range): BP systolic 94–133; BP diastolic 64–82; PULSE 67–103; RESP 18–20; TEMP 36.5–36.6; O2SAT 92–96
[2024-12-23 04:13] LABS: Hematocrit 39.0 % (42.0-52.0); Hemoglobin 13.8 g/dL (14.0-18.0); Immature Granulocyte Percent A 0.5 % (0-0.5); Lymphocytes Absolute Auto 1.79 K/mm3 (0.9-3.2); Mean Corpuscular HGB Conc 35.4 g/dl (32-36); Mean Corpuscular Hemoglobin 32.8 pg (26-34); Mean Corpuscular Volume 92.6 fl (80-100); Nucleated Red Blood Cells Absolute Auto 0.000 K/mm3 (0.0-0.012); Nucleated Red Blood Cells Perc 0.0 % (0.0-0.2); Platelet Count Result 217 k/mm3 (150-375); Red Blood Count 4.21 M/mm3 (4.6-6.20); White Blood Count 7.4 K/mm3 (4.5-10.0)
[2024-12-23 04:32] LABS: Alanine Aminotransferase 18 U/L (6-50); Albumin Level 3.9 g/dL (3.5-5.1); Alkaline Phosphatase 62 U/L (38-126); Anion Gap 7 mmol/L (4-12); Aspartate Amino Transferase 27 U/L (17-59); Bilirubin,Total 1.0 mg/dL (0.2-1.3); Blood Urea Nitrogen 15 mg/dL (9-20); Calcium 9.2 mg/dL (8.4-10.2); Carbon Dioxide 28 mmol/L (22-30); Chloride 98 mmol/L (98-107); Estimated CRCL calculation 99 ml/min; Estimated Glomerular Filt Rate > 60; Glucose 96 mg/dL (65-110); Magnesium 1.9 mg/dL (1.6-2.3); Potassium 3.6 mmol/L (3.4-5.0); Sodium 133 mmol/L (137-145); Total Protein 6.7 g/dL (6.3-8.2)
--- NOTE | 2024-12-23 07:49 | PM.PNCARD ---
Progress Note: A&P Assessment and Plan (1) Mitral valve regurgitation: Code(s): I34.0 - Nonrheumatic mitral (valve) insufficiency Status: Acute Assessment and Plan: Severe MR. Likely schemic etiology due to probably malfunctioning posterior MV papillary muscle. 12/22/24 ADIN: EF 60-65%, posterior MV leaflet restricted with mod anterior MVP and severe posteriorly directed MR. Discuss with patient and he is agreeable to transfer to [facility] for CABG with MVR. Spoke with Dr. Álvaro Lowe, CT surgeon at [facility] who has accepted patient. (2) Coronary artery disease: Code(s): I25.10 - Atherosclerotic heart disease of [place] coronary artery without angina pectoris Status: Acute Assessment and Plan: 12/22/24 [facility] with Dr. Loomis: Mid LM with stent extending into LAD, LAD heavily calcified with focal in-stent restenosis of 70% and distant part of stent with calcified 50% in-stent restenosis; LCx ostium heavily calcified with 70% stenosis; OM1 small caliber with 60-70% and OM2 small caliber with 50-60% stenosis; RCA with 80% prox focal stenosis. RHC: CI 2.6; PCWP 7. (3) Diastolic dysfunction: Code(s): I51.89 - Other ill-defined heart diseases Status: Chronic Assessment and Plan: Stable. (4) Hypertension: Qualifiers: Hypertension type: primary hypertension Qualified Code(s): I10 - Essential (primary) hypertension Code(s): I10 - Essential (primary) hypertension Status: Chronic Assessment and Plan: Stabe. (5) Acute respiratory distress: Code(s): R06.03 - Acute respiratory distress Status: Acute Assessment and Plan: Frequent recurrences due to flash pulm edema from severe MR. Subjective Date/time seen: 12/23/24 07:49 Interval history: No sob while at rest and normal BP. Denies chest pain. Exam Const: General: cooperative, healthy appearing and comfortable Orientation/consciousness: oriented to person, oriented to place and oriented to time Resp: Auscultation: clear to auscultation bilaterally, no crackles, no rales, no rhonchi and no wheezes Cardio: Rate: regular rate Rhythm: regular rhythm Heart sounds: no murmurs Neuro: General: oriented to person, oriented to place and oriented to time Extrem: Right lower extremity: no edema Left lower extremity: no edema Objective Data Vital Signs Vital Signs: Vital Signs - 24 hr 12/22/24 08:00 12/22/24 08:12 12/22/24 08:12 Temperature 97.7 F Pulse Rate 60 90 90 Pulse Rate [Right Radial] Respiratory Rate 16 20 Blood Pressure 102/74 Pulse Oximetry 96 95 Oxygen Delivery Room Air Oxygen Flow Rate Fraction of Inspired Oxygen 21 12/22/24 08:20 12/22/24 08:40 12/22/24 08:53 Temperature Pulse Rate 77 73 Pulse Rate [Right Radial] Respiratory Rate 20 18 18 Blood Pressure 112/77 115/80 Pulse Oximetry 95 98 Oxygen Delivery Oxygen Flow Rate 2 Fraction of Inspired Oxygen 12/22/24 08:55 12/22/24 09:00 12/22/24 09:05 Temperature Pulse Rate 90 78 74 Pulse Rate [Right Radial] Respiratory Rate 24 H 23 H 22 H Blood Pressure 159/102 H 123/95 H 131/99 H Pulse Oximetry 98 92 92 Oxygen Delivery Oxygen Flow Rate 2 2 2 Fraction of Inspired Oxygen 12/22/24 09:15 12/22/24 09:30 12/22/24 09:45 Temperature Pulse Rate 79 73 76 Pulse Rate [Right Radial] Respiratory Rate 19 20 12 Blood Pressure 110/77 107/74 99/73 L Pulse Oximetry 92 93 94 Oxygen Delivery Room Air Oxygen Flow Rate 2 2 Fraction of Inspired Oxygen 12/22/24 10:00 12/22/24 10:14 12/22/24 15:30 Temperature Pulse Rate 69 74 Pulse Rate [Right Radial] 69 Respiratory Rate 16 Blood Pressure 107/69 Pulse Oximetry 94 Oxygen Delivery Room Air Oxygen Flow Rate Fraction of Inspired Oxygen 12/22/24 15:30 12/22/24 15:45 12/22/24 15:45 Temperature Pulse Rate 69 78 Pulse Rate [Right Radial] 78 Respiratory Rate 15 16 Blood Pressure 105/78 105/77 Pulse Oximetry 93 93 Oxygen Delivery Room Air Room Air Oxygen Flow Rate Fraction of Inspired Oxygen 12/22/24 16:00 12/22/24 16:00 12/22/24 16:15 Temperature Pulse Rate 75 Pulse Rate [Right Radial] 75 72 Respiratory Rate 20 Blood Pressure 115/76 Pulse Oximetry 93 Oxygen Delivery Room Air Oxygen Flow Rate Fraction of Inspired Oxygen 12/22/24 16:15 12/22/24 16:30 12/22/24 16:30 Temperature Pulse Rate 72 78 Pulse Rate [Right Radial] 78 Respiratory Rate 14 16 Blood Pressure 102/68 134/75 Pulse Oximetry 94 96 Oxygen Delivery Room Air Room Air Oxygen Flow Rate Fraction of Inspired Oxygen 12/22/24 16:45 12/22/24 16:45 12/22/24 17:00 Temperature Pulse Rate 75 Pulse Rate [Right Radial] 75 71 Respiratory Rate 15 Blood Pressure 120/90 Pulse Oximetry 94 Oxygen Delivery Room Air Oxygen Flow Rate Fraction of Inspired Oxygen 12/22/24 17:00 12/22/24 17:15 12/22/24 17:15 Temperature Pulse Rate 71 82 Pulse Rate [Right Radial] 82 Respiratory Rate 15 15 Blood Pressure 117/82 126/77 Pulse Oximetry 94 95 Oxygen Delivery Room Air Room Air Oxygen Flow Rate Fraction of Inspired Oxygen 12/22/24 17:30 12/22/24 17:30 12/22/24 17:45 Temperature Pulse Rate 71 Pulse Rate [Right Radial] 71 73 Respiratory Rate 12 Blood Pressure 114/84 Pulse Oximetry 97 Oxygen Delivery Room Air Oxygen Flow Rate Fraction of Inspired Oxygen 12/22/24 17:45 12/22/24 18:00 12/22/24 18:00 Temperature Pulse Rate 73 83 Pulse Rate [Right Radial] 83 Respiratory Rate 13 19 Blood Pressure 109/82 118/82 Pulse Oximetry 95 96 Oxygen Delivery Room Air Room Air Oxygen Flow Rate Fraction of Inspired Oxygen 12/22/24 18:15 12/22/24 18:15 12/22/24 18:30 Temperature Pulse Rate 86 Pulse Rate [Right Radial] 86 80 Respiratory Rate 22 H Blood Pressure 118/85 Pulse Oximetry 96 Oxygen Delivery Room Air Oxygen Flow Rate Fraction of Inspired Oxygen 12/22/24 18:30 12/22/24 18:45 12/22/24 18:45 Temperature Pulse Rate 80 84 Pulse Rate [Right Radial] 84 Respiratory Rate 19 23 H Blood Pressure 111/70 110/61 Pulse Oximetry 95 95 Oxygen Delivery Room Air Room Air Oxygen Flow Rate Fraction of Inspired Oxygen 12/22/24 19:00 12/22/24 19:00 12/22/24 19:15 Temperature Pulse Rate 84 Pulse Rate [Right Radial] 84 79 Respiratory Rate 15 Blood Pressure 123/93 H Pulse Oximetry 97 Oxygen Delivery Room Air Oxygen Flow Rate Fraction of Inspired Oxygen 12/22/24 19:15 12/22/24 19:30 07/14/25 19:30 Temperature Pulse Rate 79 79 Pulse Rate [Right Radial] 79 Respiratory Rate 26 H 23 H Blood Pressure 109/75 121/70 Pulse Oximetry 95 97 Oxygen Delivery Room Air Room Air Oxygen Flow Rate Fraction of Inspired Oxygen 12/22/24 20:00 12/22/24 20:00 12/22/24 20:14 Temperature 97.7 F Pulse Rate 85 80 Pulse Rate [Right Radial] Respiratory Rate 16 Blood Pressure 117/71 Pulse Oximetry 98 Oxygen Delivery Room Air Oxygen Flow Rate Fraction of Inspired Oxygen 12/22/24 21:11 12/22/24 21:16 12/22/24 21:26 Temperature Pulse Rate 77 77 Pulse Rate [Right Radial] Respiratory Rate 18 18 Blood Pressure Pulse Oximetry 99 Oxygen Delivery Room Air Oxygen Flow Rate Fraction of Inspired Oxygen 12/22/24 21:52 12/22/24 23:54 12/23/24 00:00 Temperature 97.7 F Pulse Rate 77 74 74 Pulse Rate [Right Radial] Respiratory Rate 16 Blood Pressure 109/68 Pulse Oximetry 96 Oxygen Delivery Oxygen Flow Rate Fraction of Inspired Oxygen 12/23/24 00:00 12/23/24 02:00 12/23/24 03:57 Temperature Pulse Rate 67 Pulse Rate [Right Radial] Respiratory Rate Blood Pressure Pulse Oximetry Oxygen Delivery Room Air Room Air Oxygen Flow Rate Fraction of Inspired Oxygen 12/23/24 04:00 12/23/24 05:56 Temperature Pulse Rate 67 74 Pulse Rate [Right Radial] Respiratory Rate Blood Pressure Pulse Oximetry Oxygen Delivery Oxygen Flow Rate Fraction of Inspired Oxygen Intake/Output Intake/Output: Intake & Output 12/20/24 12/21/24 12/22/24 12/23/24 23:59 23:59 23:59 23:59 Intake Total 1670 1270 300 250 Balance 1670 1270 300 250 Meds/Results Medications: Active Medications Generic Name Dose Route Start Last Admin Trade Name Freq PRN Reason Stop Dose Admin Acetaminophen 650 mg 12/18/24 21:16 12/22/24 22:38 Acetaminophen 325 Mg Tablet PO 650 mg Q6H PRN Administration Mild Pain (1-3) or Fever Albuterol/Ipratropium 3 ml 12/19/24 14:32 12/22/24 21:22 Ipratropium 0.5 Mg/Albuterol Sulfate 2.5 Mg Ampul.Neb 3 Ml INHALATION 3 ml Q6HRT PRN Administration Wheezing Aripiprazole 2 mg 12/19/24 09:00 12/22/24 10:13 Aripiprazole 2 Mg Tablet PO 2 mg DAILY ESTEFANÍA Administration Aspirin 81 mg 12/19/24 08:00 12/22/24 10:13 Aspirin 81 Mg Enteric Tablet PO 81 mg DAILY@0800 ESTEFANÍA Administration Atorvastatin Calcium 40 mg 12/19/24 21:00 12/22/24 20:14 Atorvastatin 40 Mg Tablet BY MOUTH 40 mg HS ESTEFANÍA Administration Calcium Carbonate 250 mg 12/19/24 09:00 12/22/24 10:14 Calcium Carbonate (Oscal) 250 Mg Tablet PO 250 mg QAM ESTEFANÍA Administration Carvedilol 6.25 mg 12/19/24 09:00 12/22/24 20:14 Carvedilol 6.25 Mg Tablet BY MOUTH 6.25 mg Q12HR ESTEFANÍA Administration Fluticasone/Umeclidinium/Vilanterol 1 puff 12/19/24 08:00 12/22/24 08:11 Fluticasone/Umeclidin/Vilanter 100-62.5-25 Mcg Ellipta INHALATION 1 puff DAILYRT ESTEFANÍA Administration Folic Acid 0.4 mg 12/19/24 09:00 12/22/24 10:14 Folic Acid 0.4 Mg Tablet PO 0.4 mg QAM ESTEFANÍA Administration Furosemide 20 mg 12/19/24 09:00 12/22/24 10:13 Furosemide 20 Mg Tablet PO 20 mg QAM ESTEFANÍA Administration Guaifenesin 1,200 mg 12/19/24 09:00 12/22/24 20:13 Guaifenesin 12 Hr 600 Mg Tabcr PO 1,200 mg Q12HR ESTEFANÍA Administration Losartan Potassium 12.5 mg 12/19/24 09:00 12/22/24 10:20 Losartan Potassium 12.5 Mg Tablet PO Not Given DAILY ESTEFANÍA Multivitamins Therapeutic 1 tablet 12/19/24 09:00 12/22/24 10:14 Multivitamins Therapeutic Tab (*Bkc) PO 1 tablet DAILY ESTEFANÍA Administration (Ensifentrine [ 2.5 ml 12/19/24 20:00 12/22/24 21:22 Ohtuvayre] 3 Mg/2.5 INHALATION 01/18/25 19:59 2.5 ml Ml Suspension For Q12HRT ESTEFANÍA Administration Nebulization)Homemed Pantoprazole Sodium 40 mg 12/19/24 09:00 12/22/24 10:14 Pantoprazole 40 Mg Tablet PO 40 mg QAM ESTEFANÍA Administration Ticagrelor 90 mg 12/19/24 09:00 12/22/24 20:13 Ticagrelor 90 Mg Tablet PO 90 mg Q12HR ESTEFANÍA Administration Trazodone HCl 100 mg 12/19/24 21:00 12/23/24 00:58 Trazodone Hcl 50 Mg Tablet PO 100 mg HS ESTEFANÍA Administration Vitamin B Complex 1 cap 12/19/24 09:00 12/22/24 10:14 Vitamin B Complex Capsule PO 1 cap QAM ESTEFANÍA Administration Vitamin D 125 mcg 12/19/24 09:00 12/22/24 10:14 Cholecalciferol (Vitamin D3) 125 Mcg (5,000 Units) Tablet PO 125 mcg DAILY ESTEFANÍA Administration Radiology Results: ITS Impressions Chest X-Ray 12/22/24 13:41 IMPRESSION: No acute cardiopulmonary pathology. Venous Doppler Study 12/22/24 19:01 IMPRESSION: No deep venous thrombosis. Labs Labs: Laboratory Results - last 24 hr 12/23/24 03:52 WBC 7.4 RBC 4.21 L Hgb 13.8 L Hct 39.0 L MCV 92.6 MCH 32.8 MCHC 35.4 RDW 12.8 Plt Count 217 MPV 8.3 Immature Gran % (Auto) 0.5 Neut % (Auto) 60.1 Lymph % (Auto) 24.1 Evans % (Auto) 11.0 H Eos % (Auto) 3.8 Baso % (Auto) 0.5 Lymph # (Auto) 1.79 Evans # (Auto) 0.8 H Eos # (Auto) 0.3 Baso # (Auto) 0.0 Abs Immat Gran (auto) 0.04 H Absolute Neuts (auto) 4.5 Absolute Nucleated RBC 0.000 Nucleated RBC % 0.0 Sodium 133 L Potassium 3.6 Chloride 98 Carbon Dioxide 28 Anion Gap 7 BUN 15 Creatinine 0.71 Estim Creat Clear Calc 99 Estimated GFR > 60 Glucose 96 Calcium 9.2 Magnesium 1.9 Total Bilirubin 1.0 AST 27 ALT 18 Alkaline Phosphatase 62 Total Protein 6.7 Albumin 3.9
[2024-12-23] MEDS: ENSIFENTRINE 2.5 EACH INHALATION ×2 (08:08→20:36)
[2024-12-23] MEDS: FLUTICASONE/UMECLIDIN/VILANTER 100-62.5-25 MCG ELLIPTA 1 PUFF INHALATION (08:14)
[2024-12-23] MEDS: MULTIVITAMINS THERAPEUTIC TAB (*BKC) 1 TABLET PO (08:28)
[2024-12-23] MEDS: CHOLECALCIFEROL (VITAMIN D3) 125 MCG (5,000 UNITS) TABLET PO (08:28)
[2024-12-23] MEDS: ASPIRIN 81 MG ENTERIC TABLET PO (08:28)
[2024-12-23] MEDS: FUROSEMIDE 20 MG TABLET PO (08:28)
[2024-12-23] MEDS: FOLIC ACID 0.4 MG TABLET PO (08:28)
[2024-12-23] MEDS: PANTOPRAZOLE 40 MG TABLET PO (08:28)
[2024-12-23] MEDS: LOSARTAN POTASSIUM 12.5 MG TABLET PO (08:28)
[2024-12-23] MEDS: CALCIUM CARBONATE (OSCAL) 250 MG TABLET PO (08:28)
[2024-12-23] MEDS: VITAMIN B COMPLEX CAPSULE 1 CAP PO (08:28)
[2024-12-23] MEDS: guaiFENesin 12 HR 600 MG TABCR 1200 MG PO ×2 (08:28→20:28)
--- NOTE | 2024-12-23 10:34 | PM.PNPUL ---
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 Reports system reviewed and no additional complaints, except as documented Psychiatric: Psychiatric: Reports no additional psychiatric complaints Endocrine: Endocrine: Reports no additional endocrine complaints Hematologic/Lymphatic: Hematologic/Lymphatic: Reports no additional hematologic/lymphatic complaints Allergic/Immunologic: Allergic/Immunologic: Reports no additional allergic/immunologic complaints Exam Const: General: cooperative, healthy appearing and comfortable Orientation/consciousness: oriented to person, oriented to place and oriented to time HENMT: Head: normal to inspection Ears: hearing grossly normal bilaterally Eyes: General: appearance normal, both eyes and all related structures Neck: Neck: normal visual inspection Chest: Chest palpation & inspection: normal inspection of the chest Resp: Effort & Inspection: normal respiratory effort and able to speak in complete sentences Auscultation: no crackles, no rales, no rhonchi, no wheezes and lung sounds not diminished Cardio: Jugular venous distension: no JVD Other: Mild MR murmur GI: Inspection: normal to inspection Skin: General skin exam: normal color Neuro: General: oriented to person, oriented to place and oriented to time Extrem: General: normal to inspection Psych: Appearance: grossly normal Objective Data Vital Signs Vital Signs: Vital Signs - 24 hr 12/22/24 15:30 12/22/24 15:30 12/22/24 15:45 Temperature Pulse Rate 69 Pulse Rate [Right Radial] 69 78 Respiratory Rate 15 Blood Pressure 105/78 Pulse Oximetry 93 Oxygen Delivery Room Air Fraction of Inspired Oxygen 12/22/24 15:45 12/22/24 16:00 12/22/24 16:00 Temperature Pulse Rate 78 75 Pulse Rate [Right Radial] 75 Respiratory Rate 16 20 Blood Pressure 105/77 115/76 Pulse Oximetry 93 93 Oxygen Delivery Room Air Room Air Fraction of Inspired Oxygen 12/22/24 16:15 12/22/24 16:15 12/22/24 16:30 Temperature Pulse Rate 72 Pulse Rate [Right Radial] 72 78 Respiratory Rate 14 Blood Pressure 102/68 Pulse Oximetry 94 Oxygen Delivery Room Air Fraction of Inspired Oxygen 12/22/24 16:30 12/22/24 16:45 12/22/24 16:45 Temperature Pulse Rate 78 75 Pulse Rate [Right Radial] 75 Respiratory Rate 16 15 Blood Pressure 134/75 120/90 Pulse Oximetry 96 94 Oxygen Delivery Room Air Room Air Fraction of Inspired Oxygen 12/22/24 17:00 12/22/24 17:00 12/22/24 17:15 Temperature Pulse Rate 71 Pulse Rate [Right Radial] 71 82 Respiratory Rate 15 Blood Pressure 117/82 Pulse Oximetry 94 Oxygen Delivery Room Air Fraction of Inspired Oxygen 12/22/24 17:15 12/22/24 17:30 12/22/24 17:30 Temperature Pulse Rate 82 71 Pulse Rate [Right Radial] 71 Respiratory Rate 15 12 Blood Pressure 126/77 114/84 Pulse Oximetry 95 97 Oxygen Delivery Room Air Room Air Fraction of Inspired Oxygen 12/22/24 17:45 12/22/24 17:45 12/22/24 18:00 Temperature Pulse Rate 73 Pulse Rate [Right Radial] 73 83 Respiratory Rate 13 Blood Pressure 109/82 Pulse Oximetry 95 Oxygen Delivery Room Air Fraction of Inspired Oxygen 12/22/24 18:00 12/22/24 18:15 12/22/24 18:15 Temperature Pulse Rate 83 86 Pulse Rate [Right Radial] 86 Respiratory Rate 19 22 H Blood Pressure 118/82 118/85 Pulse Oximetry 96 96 Oxygen Delivery Room Air Room Air Fraction of Inspired Oxygen 12/22/24 18:30 12/22/24 18:30 12/22/24 18:45 Temperature Pulse Rate 80 Pulse Rate [Right Radial] 80 84 Respiratory Rate 19 Blood Pressure 111/70 Pulse Oximetry 95 Oxygen Delivery Room Air Fraction of Inspired Oxygen 12/22/24 18:45 12/22/24 19:00 12/22/24 19:00 Temperature Pulse Rate 84 84 Pulse Rate [Right Radial] 84 Respiratory Rate 23 H 15 Blood Pressure 110/61 123/93 H Pulse Oximetry 95 97 Oxygen Delivery Room Air Room Air Fraction of Inspired Oxygen 12/22/24 19:15 12/22/24 19:15 12/22/24 19:30 Temperature Pulse Rate 79 Pulse Rate [Right Radial] 79 79 Respiratory Rate 26 H Blood Pressure 109/75 Pulse Oximetry 95 Oxygen Delivery Room Air Fraction of Inspired Oxygen 12/22/24 19:30 12/22/24 20:00 12/22/24 20:00 Temperature 36.5 C Pulse Rate 79 85 Pulse Rate [Right Radial] Respiratory Rate 23 H 16 Blood Pressure 121/70 117/71 Pulse Oximetry 97 98 Oxygen Delivery Room Air Room Air Fraction of Inspired Oxygen 12/22/24 20:14 12/22/24 21:11 12/22/24 21:16 Temperature Pulse Rate 80 77 Pulse Rate [Right Radial] Respiratory Rate 18 Blood Pressure Pulse Oximetry 99 Oxygen Delivery Room Air Fraction of Inspired Oxygen 21 12/22/24 21:26 12/22/24 21:52 12/22/24 23:54 Temperature 36.5 C Pulse Rate 77 77 74 Pulse Rate [Right Radial] Respiratory Rate 18 16 Blood Pressure 109/68 Pulse Oximetry 96 Oxygen Delivery Fraction of Inspired Oxygen 12/23/24 00:00 12/23/24 00:00 12/23/24 02:00 Temperature Pulse Rate 74 67 Pulse Rate [Right Radial] Respiratory Rate Blood Pressure Pulse Oximetry Oxygen Delivery Room Air Fraction of Inspired Oxygen 12/23/24 03:57 12/23/24 04:00 12/23/24 05:56 Temperature Pulse Rate 67 74 Pulse Rate [Right Radial] Respiratory Rate Blood Pressure Pulse Oximetry Oxygen Delivery Room Air Fraction of Inspired Oxygen 12/23/24 07:49 12/23/24 08:00 12/23/24 08:00 Temperature 36.6 C Pulse Rate 84 84 85 Pulse Rate [Right Radial] Respiratory Rate 18 18 Blood Pressure 133/82 Pulse Oximetry 92 92 Oxygen Delivery Room Air Fraction of Inspired Oxygen 12/23/24 08:18 12/23/24 08:18 12/23/24 08:28 Temperature Pulse Rate 82 83 Pulse Rate [Right Radial] Respiratory Rate 18 Blood Pressure Pulse Oximetry 96 Oxygen Delivery Room Air Fraction of Inspired Oxygen 12/23/24 10:00 Temperature Pulse Rate 88 Pulse Rate [Right Radial] Respiratory Rate Blood Pressure Pulse Oximetry Oxygen Delivery Fraction of Inspired Oxygen Intake/Output Intake/Output: Intake & Output 12/20/24 12/21/24 12/22/24 12/23/24 23:59 23:59 23:59 23:59 Intake Total 1670 1270 300 490 Balance 1670 1270 300 490 Meds/Results Medications: Active Medications Generic Name Dose Route Start Last Admin Trade Name Freq PRN Reason Stop Dose Admin Acetaminophen 650 mg 12/18/24 21:16 12/22/24 22:38 Acetaminophen 325 Mg Tablet PO 650 mg Q6H PRN Administration Mild Pain (1-3) or Fever Albuterol/Ipratropium 3 ml 12/19/24 14:32 12/22/24 21:22 Ipratropium 0.5 Mg/Albuterol Sulfate 2.5 Mg Ampul.Neb 3 Ml INHALATION 3 ml Q6HRT PRN Administration Wheezing Aripiprazole 2 mg 12/19/24 09:00 12/23/24 08:28 Aripiprazole 2 Mg Tablet PO 2 mg DAILY ESTEFANÍA Administration Aspirin 81 mg 12/19/24 08:00 12/23/24 08:28 Aspirin 81 Mg Enteric Tablet PO 81 mg DAILY@0800 ESTEFANÍA Administration Atorvastatin Calcium 40 mg 12/19/24 21:00 12/22/24 20:14 Atorvastatin 40 Mg Tablet BY MOUTH 40 mg HS ESTEFANÍA Administration Calcium Carbonate 250 mg 12/19/24 09:00 12/23/24 08:28 Calcium Carbonate (Oscal) 250 Mg Tablet PO 250 mg QAM ESTEFANÍA Administration Carvedilol 6.25 mg 12/19/24 09:00 12/23/24 08:28 Carvedilol 6.25 Mg Tablet BY MOUTH 6.25 mg Q12HR ESTEFANÍA Administration Fluticasone/Umeclidinium/Vilanterol 1 puff 12/19/24 08:00 12/23/24 08:14 Fluticasone/Umeclidin/Vilanter 100-62.5-25 Mcg Ellipta INHALATION 1 puff DAILYRT ESTEFANÍA Administration Folic Acid 0.4 mg 12/19/24 09:00 12/23/24 08:28 Folic Acid 0.4 Mg Tablet PO 0.4 mg QAM ESTEFANÍA Administration Furosemide 20 mg 12/19/24 09:00 12/23/24 08:28 Furosemide 20 Mg Tablet PO 20 mg QAM ESTEFANÍA Administration Guaifenesin 1,200 mg 12/19/24 09:00 12/23/24 08:28 Guaifenesin 12 Hr 600 Mg Tabcr PO 1,200 mg Q12HR ESTEFANÍA Administration Losartan Potassium 12.5 mg 12/19/24 09:00 12/23/24 08:28 Losartan Potassium 12.5 Mg Tablet PO 12.5 mg DAILY ESTEFANÍA Administration Multivitamins Therapeutic 1 tablet 12/19/24 09:00 12/23/24 08:28 Multivitamins Therapeutic Tab (*Bkc) PO 1 tablet DAILY ESTEFANÍA Administration (Ensifentrine [ 2.5 ml 12/19/24 20:00 12/23/24 08:08 Ohtuvayre] 3 Mg/2.5 INHALATION 01/18/25 19:59 2.5 ml Ml Suspension For Q12HRT ESTEFANÍA Administration Nebulization)Homemed Pantoprazole Sodium 40 mg 12/19/24 09:00 12/23/24 08:28 Pantoprazole 40 Mg Tablet PO 40 mg QAM ESTEFANÍA Administration Ticagrelor 90 mg 12/19/24 09:00 12/22/24 20:13 Ticagrelor 90 Mg Tablet PO 90 mg Q12HR ESTEFANÍA Administration Trazodone HCl 100 mg 12/19/24 21:00 12/23/24 00:58 Trazodone Hcl 50 Mg Tablet PO 100 mg HS ESTEFANÍA Administration Vitamin B Complex 1 cap 12/19/24 09:00 12/23/24 08:28 Vitamin B Complex Capsule PO 1 cap QAM ESTEFANÍA Administration Vitamin D 125 mcg 12/19/24 09:00 12/23/24 08:28 Cholecalciferol (Vitamin D3) 125 Mcg (5,000 Units) Tablet PO 125 mcg DAILY ESTEFANÍA Administration Radiology Results: ITS Impressions Chest X-Ray 12/22/24 13:41 IMPRESSION: No acute cardiopulmonary pathology. Venous Doppler Study 12/22/24 19:01 IMPRESSION: No deep venous thrombosis. Labs Labs: Laboratory Results - last 24 hr 12/23/24 03:52 WBC 7.4 RBC 4.21 L Hgb 13.8 L Hct 39.0 L MCV 92.6 MCH 32.8 MCHC 35.4 RDW 12.8 Plt Count 217 MPV 8.3 Immature Gran % (Auto) 0.5 Neut % (Auto) 60.1 Lymph % (Auto) 24.1 [place] % (Auto) 11.0 H Eos % (Auto) 3.8 Baso % (Auto) 0.5 Lymph # (Auto) 1.79 [place] # (Auto) 0.8 H Eos # (Auto) 0.3 Baso # (Auto) 0.0 Abs Immat Gran (auto) 0.04 H Absolute Neuts (auto) 4.5 Absolute Nucleated RBC 0.000 Nucleated RBC % 0.0 Sodium 133 L Potassium 3.6 Chloride 98 Carbon Dioxide 28 Anion Gap 7 BUN 15 Creatinine 0.71 Estim Creat Clear Calc 99 Estimated GFR > 60 Glucose 96 Calcium 9.2 Magnesium 1.9 Total Bilirubin 1.0 AST 27 ALT 18 Alkaline Phosphatase 62 Total Protein 6.7 Albumin 3.9
--- NOTE | 2024-12-23 11:23 | PM.IMPN ---
Progress Note: A&P Assessment and Plan (1) Acute respiratory failure with hypoxia and hypercapnia: Code(s): J96.01 - Acute respiratory failure with hypoxia; J96.02 - Acute respiratory failure with hypercapnia Status: Acute (2) Pneumonia: Code(s): J18.9 - Pneumonia, unspecified organism Status: Acute (3) COPD with emphysema: Code(s): J43.9 - Emphysema, unspecified Status: Acute (4) Diastolic dysfunction: Code(s): I51.89 - Other ill-defined heart diseases Status: Chronic (5) Ischemic cardiomyopathy: Code(s): I25.5 - Ischemic cardiomyopathy Status: Acute (6) Mitral valve regurgitation: Code(s): I34.0 - Nonrheumatic mitral (valve) insufficiency Status: Acute (7) Hyperglycemia: Code(s): R73.9 - Hyperglycemia, unspecified Status: Acute (8) Hypertension: Qualifiers: Hypertension type: primary hypertension Qualified Code(s): I10 - Essential (primary) hypertension Code(s): I10 - Essential (primary) hypertension Status: Chronic (9) Coronary artery disease: Code(s): I25.10 - Atherosclerotic heart disease of [place] coronary artery without angina pectoris Status: Acute Plan This is a 64-year-old male with chronic obstructive pulmonary disease, emphysema, ischemic cardiomyopathy with an EF as low as 30 to 35% though it has since normalized, diastolic dysfunction, coronary artery disease with history of stents to the ED LM into LAD and proximal to mid LAD, mitral valve regurgitation, hypertension, hyperlipidemia, gastroesophageal reflux disease, depression, and anxiety who presented to the emergency department via EMS with complaints of shortness of breath. He is known to the hospitalist service from an admission just 5 days ago in which he with shortness of breath and hypoxia for which he was treated with antibiotics, steroids, and diuretics to cover possible pneumonia, COPD, and CHF. He was discharged on azithromycin for 3 more days of which he has completed although he continues to have a productive cough productive of pulliam colored sputum, occasionally admixed with a small amount of bright red blood. Overall he is still not feeling well and his breathing is worse than his baseline. He has to stop to rest more frequently than usual. He has been using oxygen 2 L at nighttime as ordered and he has been diligent about monitoring his pulse ox which has been as low as 90% on his watch. Today he was out running errands and he reports getting increasingly short of breath although he was not exerting himself much. Rescue inhaler helped somewhat however not long prior to arrival his shortness of breath became acutely worse and he called 911. On EMS arrival his SpO2 was reportedly 65% and he was noted to be cool and clammy. He was placed on CPAP and was administered a nebulizer treatment and magnesium sulfate en route to the hospital. In the ED: He was afebrile on arrival with a blood pressure 152/78, pulse 116, respiratory rate 26, SpO2 95% on CPAP. Labs were significant for WBC count of 11.2, sodium 132, glucose 278, proBNP 307, troponin less than 0.012. ABG showed a pH of 7.315, pCO2 46.3, PO2 93.1, HC03 23.1. Chest x-ray showed bilateral basal pneumonia and underlying pulmonary edema versus pneumonitis. EKG showed sinus tachycardia without concerning ST segment changes. CPAP was transitioned to BiPAP. He was given albuterol 10 mg, methylprednisolone 125 mg IV, and levofloxacin 750 mg. He is being admitted in this setting for further treatment. BiPAP has since then been removed. Acute hypoxic respiratory failure on oxygen via nasal cannula along with requirement of BiPAP upon arrival to the ED. chest x-ray with findings of bilateral basal pneumonia. Suspected to be she related to pulmonary edema rather than pneumonia. Also does not sound like COPD exacerbation. Currently improved and down to room air COPD exacerbation continue scheduled bronchodilators. Did receive a dose of methylprednisolone in the ER. Not currently wheezing. Hold off on any further steroids bilateral basal pneumonia currently on Levaquin will continue that. Get sputum culture. Recent respiratory pathogen panel was negative. Stop Levaquin as suspicion for pneumonia is low Ischemic cardiomyopathy ejection fraction low as 30-35% since since then resolved with diastolic dysfunction. Repeat echo showed moderate to severe mitral regurgitation. He seems to have valvular heart disease with now severe mitral regurgitation. He has worsening mitral regurgitation over the past few months course. Consulted Cardiology for evaluation may need evaluation for underlying ischemic etiology. He will need follow-up with valve specialist as an outpatient basis. Discussed with Cardiology. Status post ADIN which showed severe mitral regurgitation posteriorly. Status post cardiac catheterization 12/22/2024: Triple-vessel disease noted 1. Left main: The left main coronary artery is widely patent without any significant obstructive disease. There is a patent stent in mid body of the left main extending into the LAD. 2. Left anterior descending: The LAD has a heavily calcified 70% focal in-stent restenoses. The distal portion of the stent has calcific 50% in-stent restenoses. The remainder of the LAD is angiographically free of significant disease. 3. Left circumflex: The left circumflex artery is a large caliber codominant vessel that provides 2 OM branches. The left circumflex at the ostium has a heavily calcified 70% stenosis. OM1 is small caliber vessel that has a 60-70% stenosis. OM2 is another small caliber vessel with diffuse 50-60% stenosis. 4. Right coronary artery: The RCA is a moderate caliber dominant vessel with 80% proximal focal stenosis. He is planned for CABG with MVR and has been referred to CT surgery at [facility]. Awaiting bed placement. Coronary artery disease with history of stents mitral valve regurgitation now has progressed to moderate to severe over few months. See above hypertension hyperlipidemia GERD Anxiety depression DVT prophylaxis Lovenox Code status modified code Subjective Date/time seen: 12/23/24 11:23 Interval history: No overnight event. Planned for transfer to [facility] whenever bed available. Review of Systems Review of Systems: All systems reviewed & are unremarkable except as noted in HPI and below Exam Narrative: General: Nontoxic-appearing male sitting up in bed in no acute distress. HEENT: PERRL, EOMI. Sclera anicteric. Oral mucosa moist. Oropharynx clear. Neck: Supple. No JVD. Respiratory: Respirations are nonlabored he is speaking in full sentences. Lung sounds diminished bilaterally Cardiovascular: Regular rate and rhythm with S1-S2. Soft systolic murmur at the apex. Gastrointestinal: Abdomen is soft, nontender, and nondistended with positive bowel sounds. Skin: Warm and dry. No rash or lesions on limited exam. Extremities: No cyanosis, clubbing, or edema. Radial and pedal pulses intact. Neurological: Alert. Cranial nerves 2-12 are grossly intact. No gross focal deficits to casual conversation. Psychiatric: Pleasant and cooperative with normal mood and affect. Judgment and insight intact. Objective Data Vital Signs Vital Signs: Vital Signs - 24 hr 12/22/24 15:30 12/22/24 15:30 12/22/24 15:45 Temperature Pulse Rate 69 Pulse Rate [Right Radial] 69 78 Respiratory Rate 15 Blood Pressure 105/78 Pulse Oximetry 93 Oxygen Delivery Room Air Fraction of Inspired Oxygen 12/22/24 15:45 12/22/24 16:00 12/22/24 16:00 Temperature Pulse Rate 78 75 Pulse Rate [Right Radial] 75 Respiratory Rate 16 20 Blood Pressure 105/77 115/76 Pulse Oximetry 93 93 Oxygen Delivery Room Air Room Air Fraction of Inspired Oxygen 12/22/24 16:15 12/22/24 16:15 12/22/24 16:30 Temperature Pulse Rate 72 Pulse Rate [Right Radial] 72 78 Respiratory Rate 14 Blood Pressure 102/68 Pulse Oximetry 94 Oxygen Delivery Room Air Fraction of Inspired Oxygen 12/22/24 16:30 12/22/24 16:45 12/22/24 16:45 Temperature Pulse Rate 78 75 Pulse Rate [Right Radial] 75 Respiratory Rate 16 15 Blood Pressure 134/75 120/90 Pulse Oximetry 96 94 Oxygen Delivery Room Air Room Air Fraction of Inspired Oxygen 12/22/24 17:00 12/22/24 17:00 12/22/24 17:15 Temperature Pulse Rate 71 Pulse Rate [Right Radial] 71 82 Respiratory Rate 15 Blood Pressure 117/82 Pulse Oximetry 94 Oxygen Delivery Room Air Fraction of Inspired Oxygen 12/22/24 17:15 12/22/24 17:30 12/22/24 17:30 Temperature Pulse Rate 82 71 Pulse Rate [Right Radial] 71 Respiratory Rate 15 12 Blood Pressure 126/77 114/84 Pulse Oximetry 95 97 Oxygen Delivery Room Air Room Air Fraction of Inspired Oxygen 12/22/24 17:45 12/22/24 17:45 12/22/24 18:00 Temperature Pulse Rate 73 Pulse Rate [Right Radial] 73 83 Respiratory Rate 13 Blood Pressure 109/82 Pulse Oximetry 95 Oxygen Delivery Room Air Fraction of Inspired Oxygen 12/22/24 18:00 12/22/24 18:15 12/22/24 18:15 Temperature Pulse Rate 83 86 Pulse Rate [Right Radial] 86 Respiratory Rate 19 22 H Blood Pressure 118/82 118/85 Pulse Oximetry 96 96 Oxygen Delivery Room Air Room Air Fraction of Inspired Oxygen 12/22/24 18:30 12/22/24 18:30 12/22/24 18:45 Temperature Pulse Rate 80 Pulse Rate [Right Radial] 80 84 Respiratory Rate 19 Blood Pressure 111/70 Pulse Oximetry 95 Oxygen Delivery Room Air Fraction of Inspired Oxygen 12/22/24 18:45 12/22/24 19:00 12/22/24 19:00 Temperature Pulse Rate 84 84 Pulse Rate [Right Radial] 84 Respiratory Rate 23 H 15 Blood Pressure 110/61 123/93 H Pulse Oximetry 95 97 Oxygen Delivery Room Air Room Air Fraction of Inspired Oxygen 12/22/24 19:15 12/22/24 19:15 12/22/24 19:30 Temperature Pulse Rate 79 Pulse Rate [Right Radial] 79 79 Respiratory Rate 26 H Blood Pressure 109/75 Pulse Oximetry 95 Oxygen Delivery Room Air Fraction of Inspired Oxygen 12/22/24 19:30 12/22/24 20:00 12/22/24 20:00 Temperature 97.7 F Pulse Rate 79 85 Pulse Rate [Right Radial] Respiratory Rate 23 H 16 Blood Pressure 121/70 117/71 Pulse Oximetry 97 98 Oxygen Delivery Room Air Room Air Fraction of Inspired Oxygen 12/22/24 20:14 12/22/24 21:11 12/22/24 21:16 Temperature Pulse Rate 80 77 Pulse Rate [Right Radial] Respiratory Rate 18 Blood Pressure Pulse Oximetry 99 Oxygen Delivery Room Air Fraction of Inspired Oxygen 21 12/22/24 21:26 12/22/24 21:52 12/22/24 23:54 Temperature 97.7 F Pulse Rate 77 77 74 Pulse Rate [Right Radial] Respiratory Rate 18 16 Blood Pressure 109/68 Pulse Oximetry 96 Oxygen Delivery Fraction of Inspired Oxygen 12/23/24 00:00 12/23/24 00:00 12/23/24 02:00 Temperature Pulse Rate 74 67 Pulse Rate [Right Radial] Respiratory Rate Blood Pressure Pulse Oximetry Oxygen Delivery Room Air Fraction of Inspired Oxygen 12/23/24 03:57 12/23/24 04:00 12/23/24 05:56 Temperature Pulse Rate 67 74 Pulse Rate [Right Radial] Respiratory Rate Blood Pressure Pulse Oximetry Oxygen Delivery Room Air Fraction of Inspired Oxygen 12/23/24 07:49 12/23/24 08:00 12/23/24 08:00 Temperature 97.8 F Pulse Rate 84 84 85 Pulse Rate [Right Radial] Respiratory Rate 18 18 Blood Pressure 133/82 Pulse Oximetry 92 92 Oxygen Delivery Room Air Fraction of Inspired Oxygen 12/23/24 08:18 12/23/24 08:18 12/23/24 08:28 Temperature Pulse Rate 82 83 Pulse Rate [Right Radial] Respiratory Rate 18 Blood Pressure Pulse Oximetry 96 Oxygen Delivery Room Air Fraction of Inspired Oxygen 12/23/24 10:00 Temperature Pulse Rate 88 Pulse Rate [Right Radial] Respiratory Rate Blood Pressure Pulse Oximetry Oxygen Delivery Fraction of Inspired Oxygen Intake/Output Intake/Output: Intake & Output 12/20/24 12/21/24 12/22/24 12/23/24 23:59 23:59 23:59 23:59 Intake Total 1670 1270 300 490 Balance 1670 1270 300 490 Meds/Results Medications: Active Medications Generic Name Dose Route Start Last Admin Trade Name Freq PRN Reason Stop Dose Admin Acetaminophen 650 mg 12/18/24 21:16 12/22/24 22:38 Acetaminophen 325 Mg Tablet PO 650 mg Q6H PRN Administration Mild Pain (1-3) or Fever Albuterol/Ipratropium 3 ml 12/19/24 14:32 12/22/24 21:22 Ipratropium 0.5 Mg/Albuterol Sulfate 2.5 Mg Ampul.Neb 3 Ml INHALATION 3 ml Q6HRT PRN Administration Wheezing Aripiprazole 2 mg 12/19/24 09:00 12/23/24 08:28 Aripiprazole 2 Mg Tablet PO 2 mg DAILY ESTEFANÍA Administration Aspirin 81 mg 12/19/24 08:00 12/23/24 08:28 Aspirin 81 Mg Enteric Tablet PO 81 mg DAILY@0800 ESTEFANÍA Administration Atorvastatin Calcium 40 mg 12/19/24 21:00 12/22/24 20:14 Atorvastatin 40 Mg Tablet BY MOUTH 40 mg HS ESTEFANÍA Administration Calcium Carbonate 250 mg 12/19/24 09:00 12/23/24 08:28 Calcium Carbonate (Oscal) 250 Mg Tablet PO 250 mg QAM ESTEFANÍA Administration Carvedilol 6.25 mg 12/19/24 09:00 12/23/24 08:28 Carvedilol 6.25 Mg Tablet BY MOUTH 6.25 mg Q12HR ESTEFANÍA Administration Fluticasone/Umeclidinium/Vilanterol 1 puff 12/19/24 08:00 12/23/24 08:14 Fluticasone/Umeclidin/Vilanter 100-62.5-25 Mcg Ellipta INHALATION 1 puff DAILYRT ESTEFANÍA Administration Folic Acid 0.4 mg 12/19/24 09:00 12/23/24 08:28 Folic Acid 0.4 Mg Tablet PO 0.4 mg QAM ESTEFANÍA Administration Furosemide 20 mg 12/19/24 09:00 12/23/24 08:28 Furosemide 20 Mg Tablet PO 20 mg QAM ESTEFANÍA Administration Guaifenesin 1,200 mg 12/19/24 09:00 12/23/24 08:28 Guaifenesin 12 Hr 600 Mg Tabcr PO 1,200 mg Q12HR ESTEFANÍA Administration Losartan Potassium 12.5 mg 12/19/24 09:00 12/23/24 08:28 Losartan Potassium 12.5 Mg Tablet PO 12.5 mg DAILY ESTEFANÍA Administration Multivitamins Therapeutic 1 tablet 12/19/24 09:00 12/23/24 08:28 Multivitamins Therapeutic Tab (*Bkc) PO 1 tablet DAILY ESTEFANÍA Administration (Ensifentrine [ 2.5 ml 12/19/24 20:00 12/23/24 08:08 Ohtuvayre] 3 Mg/2.5 INHALATION 01/18/25 19:59 2.5 ml Ml Suspension For Q12HRT ESTEFANÍA Administration Nebulization)Homemed Pantoprazole Sodium 40 mg 12/19/24 09:00 12/23/24 08:28 Pantoprazole 40 Mg Tablet PO 40 mg QAM ESTEFANÍA Administration Polyethylene Glycol 17 gm 12/23/24 11:00 Polyethylene Glycol 3350 17 Gm Powd.Pack PO QAM ESTEFANÍA Ticagrelor 90 mg 12/19/24 09:00 12/22/24 20:13 Ticagrelor 90 Mg Tablet PO 90 mg Q12HR ESTEFANÍA Administration Trazodone HCl 100 mg 12/19/24 21:00 12/23/24 00:58 Trazodone Hcl 50 Mg Tablet PO 100 mg HS ESTEFANÍA Administration Vitamin B Complex 1 cap 12/19/24 09:00 12/23/24 08:28 Vitamin B Complex Capsule PO 1 cap QAM ESTEFANÍA Administration Vitamin D 125 mcg 12/19/24 09:00 12/23/24 08:28 Cholecalciferol (Vitamin D3) 125 Mcg (5,000 Units) Tablet PO 125 mcg DAILY ESTEFANÍA Administration Radiology Results: ITS Impressions Chest X-Ray 12/22/24 13:41 IMPRESSION: No acute cardiopulmonary pathology. Venous Doppler Study 12/22/24 19:01 IMPRESSION: No deep venous thrombosis. Labs Labs: Laboratory Results - last 24 hr 12/23/24 03:52 WBC 7.4 RBC 4.21 L Hgb 13.8 L Hct 39.0 L MCV 92.6 MCH 32.8 MCHC 35.4 RDW 12.8 Plt Count 217 MPV 8.3 Immature Gran % (Auto) 0.5 Neut % (Auto) 60.1 Lymph % (Auto) 24.1 [place] % (Auto) 11.0 H Eos % (Auto) 3.8 Baso % (Auto) 0.5 Lymph # (Auto) 1.79 [place] # (Auto) 0.8 H Eos # (Auto) 0.3 Baso # (Auto) 0.0 Abs Immat Gran (auto) 0.04 H Absolute Neuts (auto) 4.5 Absolute Nucleated RBC 0.000 Nucleated RBC % 0.0 Sodium 133 L Potassium 3.6 Chloride 98 Carbon Dioxide 28 Anion Gap 7 BUN 15 Creatinine 0.71 Estim Creat Clear Calc 99 Estimated GFR > 60 Glucose 96 Calcium 9.2 Magnesium 1.9 Total Bilirubin 1.0 AST 27 ALT 18 Alkaline Phosphatase 62 Total Protein 6.7 Albumin 3.9
[2024-12-23] MEDS: ATORVASTATIN 40 MG TABLET BY MOUTH (20:28)
[2024-12-24] VITALS (20 sets, daily range): BP systolic 91–110; BP diastolic 58–72; PULSE 16–86; RESP 16–18; TEMP 36.5–36.6; O2SAT 91–98
--- NOTE | 2024-12-24 07:45 | PM.PNCARD ---
Progress Note: A&P Assessment and Plan (1) Mitral valve regurgitation: Code(s): I34.0 - Nonrheumatic mitral (valve) insufficiency Status: Acute Assessment and Plan: Severe MR. Likely schemic etiology due to probably malfunctioning posterior MV papillary muscle. 12/22/24 ADIN: EF 60-65%, posterior MV leaflet restricted with mod anterior MVP and severe posteriorly directed MR. Discuss with patient and he is agreeable to transfer to [facility] for CABG with MVR. Spoke with Dr. Álvaro Lowe, CT surgeon at [facility] who has accepted patient. Awaiting bed availability. Will sign off, please call with any questions. (2) Coronary artery disease: Code(s): I25.10 - Atherosclerotic heart disease of [place] coronary artery without angina pectoris Status: Acute Assessment and Plan: 12/22/24 [facility] with Dr. Loomis: Mid LM with stent extending into LAD, LAD heavily calcified with focal in-stent restenosis of 70% and distant part of stent with calcified 50% in-stent restenosis; LCx ostium heavily calcified with 70% stenosis; OM1 small caliber with 60-70% and OM2 small caliber with 50-60% stenosis; RCA with 80% prox focal stenosis. RHC: CI 2.6; PCWP 7. Last dose of Brilinta Sunday night on 12/22/24. (3) Diastolic dysfunction: Code(s): I51.89 - Other ill-defined heart diseases Status: Chronic Assessment and Plan: Stable. (4) Hypertension: Qualifiers: Hypertension type: primary hypertension Qualified Code(s): I10 - Essential (primary) hypertension Code(s): I10 - Essential (primary) hypertension Status: Chronic Assessment and Plan: Stabe. (5) Acute respiratory distress: Code(s): R06.03 - Acute respiratory distress Status: Acute Assessment and Plan: Frequent recurrences due to flash pulm edema from severe MR. Subjective Date/time seen: 12/24/24 07:45 Interval history: No sob while at rest and normal BP. Denies chest pain. Exam Const: General: cooperative, healthy appearing and comfortable Orientation/consciousness: oriented to person, oriented to place and oriented to time Resp: Auscultation: clear to auscultation bilaterally, no crackles, no rales, no rhonchi and no wheezes Cardio: Rate: regular rate Rhythm: regular rhythm Heart sounds: no murmurs Neuro: General: oriented to person, oriented to place and oriented to time Extrem: Right lower extremity: no edema Left lower extremity: no edema Objective Data Vital Signs Vital Signs: Vital Signs - 24 hr 12/23/24 07:49 12/23/24 08:00 12/23/24 08:00 Temperature 97.8 F Pulse Rate 84 84 85 Respiratory Rate 18 18 Blood Pressure 133/82 Pulse Oximetry 92 92 Oxygen Delivery Room Air 12/23/24 08:18 12/23/24 08:18 12/23/24 08:28 Temperature Pulse Rate 82 83 Respiratory Rate 18 Blood Pressure Pulse Oximetry 96 Oxygen Delivery Room Air 12/23/24 10:00 12/23/24 12:00 12/23/24 12:00 Temperature Pulse Rate 88 88 83 Respiratory Rate 18 Blood Pressure Pulse Oximetry 96 Oxygen Delivery Room Air 12/23/24 13:59 12/23/24 16:00 12/23/24 16:00 Temperature Pulse Rate 82 78 77 Respiratory Rate 20 Blood Pressure Pulse Oximetry 94 Oxygen Delivery Room Air 12/23/24 16:07 12/23/24 16:29 12/23/24 18:00 Temperature 97.7 F Pulse Rate 78 88 Respiratory Rate 20 Blood Pressure 94/64 L 104/74 Pulse Oximetry 94 Oxygen Delivery 12/23/24 19:32 12/23/24 20:00 12/23/24 20:09 Temperature 97.9 F Pulse Rate 79 81 103 H Respiratory Rate 20 Blood Pressure 114/81 Pulse Oximetry 95 Oxygen Delivery Room Air 12/23/24 20:29 12/23/24 20:40 12/23/24 20:40 Temperature Pulse Rate 80 83 Respiratory Rate 18 Blood Pressure Pulse Oximetry 94 Oxygen Delivery Room Air 12/23/24 22:21 12/23/24 23:47 12/24/24 00:00 Temperature Pulse Rate 77 74 75 Respiratory Rate 20 Blood Pressure Pulse Oximetry 96 Oxygen Delivery Room Air 12/24/24 00:00 12/24/24 02:13 12/24/24 04:00 Temperature Pulse Rate 76 76 82 Respiratory Rate Blood Pressure Pulse Oximetry Oxygen Delivery Room Air 12/24/24 04:00 12/24/24 06:00 Temperature Pulse Rate 78 78 Respiratory Rate Blood Pressure Pulse Oximetry Oxygen Delivery Intake/Output Intake/Output: Intake & Output 07/13/25 07/14/25 07/15/25 07/16/25 23:59 23:59 23:59 23:59 Intake Total 4778 146 4361 150 Balance 1474 235 4245 150 Meds/Results Medications: Active Medications Generic Name Dose Route Start Last Admin Trade Name Freq PRN Reason Stop Dose Admin Acetaminophen 650 mg 12/18/24 21:16 12/22/24 22:38 Acetaminophen 325 Mg Tablet PO 650 mg Q6H PRN Administration Mild Pain (1-3) or Fever Albuterol/Ipratropium 3 ml 12/19/24 14:32 12/22/24 21:22 Ipratropium 0.5 Mg/Albuterol Sulfate 2.5 Mg Ampul.Neb 3 Ml INHALATION 3 ml Q6HRT PRN Administration Wheezing Aripiprazole 2 mg 12/19/24 09:00 12/23/24 08:28 Aripiprazole 2 Mg Tablet PO 2 mg DAILY ESTEFANÍA Administration Aspirin 81 mg 12/19/24 08:00 12/23/24 08:28 Aspirin 81 Mg Enteric Tablet PO 81 mg DAILY@0800 ESTEFANÍA Administration Atorvastatin Calcium 40 mg 12/19/24 21:00 12/23/24 20:28 Atorvastatin 40 Mg Tablet BY MOUTH 40 mg HS ESTEFANÍA Administration Calcium Carbonate 250 mg 12/19/24 09:00 12/23/24 08:28 Calcium Carbonate (Oscal) 250 Mg Tablet PO 250 mg QAM ESTEFANÍA Administration Carvedilol 6.25 mg 12/19/24 09:00 12/23/24 20:29 Carvedilol 6.25 Mg Tablet BY MOUTH 6.25 mg Q12HR ESTEFANÍA Administration Fluticasone/Umeclidinium/Vilanterol 1 puff 12/19/24 08:00 12/23/24 08:14 Fluticasone/Umeclidin/Vilanter 100-62.5-25 Mcg Ellipta INHALATION 1 puff DAILYRT ESTEFANÍA Administration Folic Acid 0.4 mg 12/19/24 09:00 12/23/24 08:28 Folic Acid 0.4 Mg Tablet PO 0.4 mg QAM ESTEFANÍA Administration Furosemide 20 mg 12/19/24 09:00 12/23/24 08:28 Furosemide 20 Mg Tablet PO 20 mg QAM ESTEFANÍA Administration Guaifenesin 1,200 mg 12/19/24 09:00 12/23/24 20:28 Guaifenesin 12 Hr 600 Mg Tabcr PO 1,200 mg Q12HR ESTEFANÍA Administration Losartan Potassium 12.5 mg 12/19/24 09:00 12/23/24 08:28 Losartan Potassium 12.5 Mg Tablet PO 12.5 mg DAILY ESTEFANÍA Administration Multivitamins Therapeutic 1 tablet 12/19/24 09:00 12/23/24 08:28 Multivitamins Therapeutic Tab (*Bkc) PO 1 tablet DAILY ESTEFANÍA Administration (Ensifentrine [ 2.5 ml 12/19/24 20:00 12/23/24 20:36 Ohtuvayre] 3 Mg/2.5 INHALATION 01/18/25 19:59 2.5 ml Ml Suspension For Q12HRT ESTEFANÍA Administration Nebulization)Homemed Pantoprazole Sodium 40 mg 12/19/24 09:00 12/23/24 08:28 Pantoprazole 40 Mg Tablet PO 40 mg QAM ESTEFANÍA Administration Polyethylene Glycol 17 gm 12/23/24 11:00 12/23/24 11:49 Polyethylene Glycol 3350 17 Gm Powd.Pack PO 17 gm QAM ESTEFANÍA Administration Ticagrelor 90 mg 12/19/24 09:00 12/22/24 20:13 Ticagrelor 90 Mg Tablet PO 90 mg Q12HR ESTEFANÍA Administration Trazodone HCl 100 mg 12/19/24 21:00 12/24/24 00:37 Trazodone Hcl 50 Mg Tablet PO 100 mg HS ESTEFANÍA Administration Vitamin B Complex 1 cap 12/19/24 09:00 12/23/24 08:28 Vitamin B Complex Capsule PO 1 cap QAM ESTEFANÍA Administration Vitamin D 125 mcg 12/19/24 09:00 12/23/24 08:28 Cholecalciferol (Vitamin D3) 125 Mcg (5,000 Units) Tablet PO 125 mcg DAILY ESTEFANÍA Administration Radiology Results: ITS Impressions Chest X-Ray 12/22/24 13:41 IMPRESSION: No acute cardiopulmonary pathology. Venous Doppler Study 12/22/24 19:01 IMPRESSION: No deep venous thrombosis.
--- NOTE | 2024-12-24 08:22 | P.PNIM_ITS ---
Progress Note: A&P Assessment and Plan (1) Acute respiratory failure with hypoxia and hypercapnia: Code(s): J96.01 - Acute respiratory failure with hypoxia; J96.02 - Acute respiratory failure with hypercapnia Status: Acute (2) Pneumonia: Code(s): J18.9 - Pneumonia, unspecified organism Status: Acute (3) COPD with emphysema: Code(s): J43.9 - Emphysema, unspecified Status: Acute (4) Diastolic dysfunction: Code(s): I51.89 - Other ill-defined heart diseases Status: Chronic (5) Ischemic cardiomyopathy: Code(s): I25.5 - Ischemic cardiomyopathy Status: Acute (6) Mitral valve regurgitation: Code(s): I34.0 - Nonrheumatic mitral (valve) insufficiency Status: Acute (7) Hyperglycemia: Code(s): R73.9 - Hyperglycemia, unspecified Status: Acute (8) Hypertension: Qualifiers: Hypertension type: primary hypertension Qualified Code(s): I10 - Essent ial (primary) hypertension Code(s): I10 - Essential (primary) hypertension Status: Chronic (9) Coronary artery disease: Code(s): I25.10 - Atherosclerotic heart disease of [place] coronary artery without angina pectoris Status: Acute Plan This is a 64-year-old male with chronic obstructive pulmonary disease, emphysema, ischemic cardiomyopathy with an EF as low as 30 to 35% though it has since normalized, diastolic dysfunction, coronary artery disease with history of stents to the ED LM into LAD and proximal to mid LAD, mitral valve regurgitation, hypertension, hyperlipidemia, gastroesophageal reflux disease, depression, and anxiety who presented to the emergency department via EMS with complaints of shortness of breath. He is known to the hospitalist service from an admission just 5 days ago in which he with shortness of breath and hypoxia for which he was treated with antibiotics, steroids, and diuretics to cover possible pneumonia, COPD, and CHF. He was discharged on azithromycin for 3 more days of which he has completed although he continues to have a productive cough productive of pulliam colored sputum, occasionally admixed with a small amount of bright red blood. Overall he is still not feeling well and his breathing is worse than his baseline. He has to stop to rest more frequently than usual. He has been using oxygen 2 L at nighttime as ordered and he has been diligent about monitoring his pulse ox which has been as low as 90% on his watch. Today he was out running errands and he reports getting increasingly short of breath although he was not exerting himself much. Rescue inhaler helped somewhat however not long prior to arrival his shortness of breath became acutely worse and he called 911. On EMS arrival his SpO2 was reportedly 65% and he was noted to be cool and clammy. He was placed on CPAP and was administered a nebulizer treatment and magnesium sulfate en route to the hospital. In the ED: He was afebrile on arrival with a blood pressure 152/78, pulse 116, respiratory rate 26, SpO2 95% on CPAP. Labs were significant for WBC count of 11.2, sodium 132, glucose 278, proBNP 307, troponin less than 0.012. ABG showed a pH of 7.315, pCO2 46.3, PO2 93.1, HC03 23.1. Chest x-ray showed bilateral basal pneumonia and underlying pulmonary edema versus pneumonitis. EKG showed sinus tachycardia without concerning ST segment changes. CPAP was transitioned t o BiPAP. He was given albuterol 10 mg, methylprednisolone 125 mg IV, and levofloxacin 750 mg. He is being admitted in this setting for further treatment. BiPAP has since then been removed. Acute hypoxic respiratory failure on oxygen via nasal cannula along with requirement of BiPAP upon arrival to the ED. chest x-ray with findings of bilateral basal pneumonia. Suspected to be she related to pulmonary edema rather than pneumonia. Also does not sound like COPD exacerbation. Currently improved and down to room air COPD exacerbation continue scheduled bronchodilators. Did receive a dose of m ethylprednisolone in the ER. Not currently wheezing. Hold off on any further steroids bilateral basal pneumonia currently on Levaquin will continue that. Get sputum culture. Recent respiratory pathogen panel was negative. Stop Levaquin as suspicion for pneumonia is low Ischemic cardiomyopathy ejection fraction low as 30-35% since since then resolved with diastolic dysfunction. Repeat echo showed moderate to severe mitral regurgitation. He seems to have valvular heart disease with now severe mitral regurgitation. He has worsening mitral regurgitation over the past few months course. Consulted Cardiology for evaluation may need evaluation for underlying ischemic etiology. He will need follow-up with valve specialist as an outpatient basis. Discussed with Cardiology. Status post ADIN which showed severe mitral regurgitation posteriorly. Status post cardiac catheterization 12/22/2024: Triple-vessel disease noted 1. Left main: The left main coronary artery is widely patent without any significant obstructive disease. There is a patent stent in mid body of the left main extending into the LAD. 2. Left anterior descending: The LAD has a heavily calcified 70% focal in-stent restenoses. The distal portion of the stent has calcific 50% in-stent restenoses. The remainder of the LAD is angiographically free of significant disease. 3. Left circumflex: The left circumflex artery is a large caliber codominant vessel that provides 2 OM branches. The left circumflex at the ostium has a heavily calcified 70% stenosis. OM1 is small caliber vessel that has a 60-70% stenosis. OM2 is another small caliber vessel with diffuse 50-60% stenosis. 4. Right coronary artery: The RCA is a moderate caliber dominant vessel with 80% proximal focal stenosis. He is planned for CABG with MVR and has been referred to CT surgery at [place]. Awaiting bed placement. Coronary artery disease with history of stents mitral valve regurgitation now has progressed to moderate to severe over few months. See above hypertension hyperlipidemia GERD Anxiety depression DVT prophylaxis Lovenox Code status modified code Subjective Date/time seen: 12/24/24 08:22 Interval history: No new complaints no overnight events. Patient awaiting transfer Review of Systems Review of Systems: All systems reviewed & are unremarkable except as noted in HPI and below Exam Narrative: General: Nontoxic-appearing male sitting up in bed in no acute distress. HEENT: PERRL, EOMI. Sclera anicteric. Oral mucosa moist. Oropharynx clear. Neck: Supple. No JVD. Respiratory: Respirations are nonlabored he is speaking in full sentences. Lung sounds diminished bilaterally Cardiovascular: Regular rate and rhythm with S1-S2. Soft systolic murmur at the apex. Gastrointestinal: Abdomen is soft, nontender, and nondistended with positive bowel sounds. Skin: Warm and dry. No rash or lesions on limited exam. Extremities: No cyanosis, clubbing, or edema. Radial and pedal pulses intact. Neurological: Alert. Cranial nerves 2-12 are grossly intact. No gross focal deficits to casual conversation. Psychiatric: Pleasant and cooperative with normal mood and affect. Judgment and insight intact. Objective Data Vital Signs Vital Signs: Vital Signs - 24 hr 12/23/24 08:28 12/23/24 10:00 12/23/24 12:00 Temperature Pulse Rate 83 88 88 Respiratory Rate 18 Blood Pressure Pulse Oximetry 96 Oxygen Delivery Room Air 12/23/24 12:00 12/23/24 13:59 12/23/24 16:00 Temperature Pulse Rate 83 82 78 Respiratory Rate 20 Blood Pressure Pulse Oximetry 94 Oxygen Delivery Room Air 12/23/24 16:00 12/23/24 16:07 12/23/24 16:29 Temperature 97.7 F Pulse Rate 77 78 Respiratory Rate 20 Blood Pressure 94/64 L 104/74 Pulse Oximetry 94 Oxygen Delivery 12/23/24 18:00 12/23/24 19:32 12/23/24 20:00 Temperature Pulse Rate 88 79 81 Respiratory Rate Blood Pressure Pulse Oximetry Oxygen Delivery Room Air 12/23/24 20:09 12/23/24 20:29 12/23/24 20:40 Temperature 97.9 F Pulse Rate 103 H 80 Respiratory Rate 20 Blood Pressure 114/81 Pulse Oximetry 95 94 Oxygen Delivery Room Air 12/23/24 20:40 12/23/24 22:21 12/23/24 23:47 Temperature Pulse Rate 83 77 74 Respiratory Rate 18 20 Blood Pressure Pulse Oximetry 96 Oxygen Delivery 12/24/24 00:00 12/24/24 00:00 12/24/24 02:13 Temperature Pulse Rate 75 76 76 Respiratory Rate Blood Pressure Pulse Oximetry Oxygen Delivery Room Air 12/24/24 04:00 12/24/24 04:00 12/24/24 06:00 Temperature Pulse Rate 82 78 78 Respiratory Rate Blood Pressure Pulse Oximetry Oxygen Delivery Room Air Intake/Output Intake/Output: Intake & Output 12/21/24 12/22/24 12/23/24 12/24/24 23:59 23:59 23:59 23:59 Intake Total 3436 381 7590 150 Balance 0121 725 9888 150 Meds/Results Medications: Active Medications Generic Name Dose Route Start Last Admin Trade Name Freq PRN Reason Stop Dose Admin Acetaminophen 650 mg 12/18/24 21:16 12/22/24 22:38 Acetaminophen 325 Mg Tablet PO 650 mg Q6H PRN Administration Mild Pain (1-3) or Fever Albuterol/Ipratropium 3 ml 12/19/24 14:32 12/22/24 21:22 Ipratropium 0.5 Mg/Albuterol Sulfate 2.5 Mg Ampul.Neb 3 Ml INHALATION 3 ml Q6HRT PRN Administration Wheezing Aripiprazole 2 mg 12/19/24 09:00 12/23/24 08:28 Aripiprazole 2 Mg Tablet PO 2 mg DAILY ESTEFANÍA Administration Aspirin 81 mg 12/19/24 08:00 12/23/24 08:28 Aspirin 81 Mg Enteric Tablet PO 81 mg DAILY@0800 ESTEFANÍA Administration Atorvastatin Calcium 40 mg 12/19/24 21:00 12/23/24 20:28 Atorvastatin 40 Mg Tablet BY MOUTH 40 mg HS ESTEFANÍA Administration Calcium Carbonate 250 mg 12/19/24 09:00 12/23/24 08:28 Calcium Carbonate (Oscal) 250 Mg Tablet PO 250 mg QAM ESTEFANÍA Administration Carvedilol 6.25 mg 12/19/24 09:00 12/23/24 20:29 Carvedilol 6.25 Mg Tablet BY MOUTH 6.25 mg Q12HR ESTEFANÍA Administration Fluticasone/Umeclidinium/Vilanterol 1 puff 12/19/24 08:00 12/23/24 08:14 Fluticasone/Umeclidin/Vilanter 100-62.5-25 Mcg Ellipta INHALATION 1 puff DAILYRT ESTEFANÍA Administration Folic Acid 0.4 mg 12/19/24 09:00 12/23/24 08:28 Folic Acid 0.4 Mg Tablet PO 0.4 mg QAM ESTEFANÍA Administration Furosemide 20 mg 12/19/24 09:00 12/23/24 08:28 Furosemide 20 Mg Tablet PO 20 mg QAM ESTEFANÍA Administration Guaifenesin 1,200 mg 12/19/24 09:00 12/23/24 20:28 Guaifenesin 12 Hr 600 Mg Tabcr PO 1,200 mg Q12HR ESTEFANÍA Administration Losartan Potassium 12.5 mg 12/19/24 09:00 12/23/24 08:28 Losartan Potassium 12.5 Mg Tablet PO 12.5 mg DAILY ESTEFANÍA Administration Multivitamins Therapeutic 1 tablet 12/19/24 09:00 12/23/24 08:28 Multivitamins Therapeutic Tab (*Bkc) PO 1 tablet DAILY ESTEFANÍA Administration (Ensifentrine [ 2.5 ml 12/19/24 20:00 12/23/24 20:36 Ohtuvayre] 3 Mg/2.5 INHALATION 01/18/25 19:59 2.5 ml Ml Suspension For Q12HRT ESTEFANÍA Administration Nebulization)Homemed Pantoprazole Sodium 40 mg 12/19/24 09:00 12/23/24 08:28 Pantoprazole 40 Mg Tablet PO 40 mg QAM ESTEFANÍA Administration Polyethylene Glycol 17 gm 12/23/24 11:00 12/23/24 11:49 Polyethylene Glycol 3350 17 Gm Powd.Pack PO 17 gm QAM ESTEFANÍA Administration Ticagrelor 90 mg 12/19/24 09:00 12/22/24 20:13 Ticagrelor 90 Mg Tablet PO 90 mg Q12HR ESTEFANÍA Administration Trazodone HCl 100 mg 12/19/24 21:00 12/24/24 00:37 Trazodone Hcl 50 Mg Tablet PO 100 mg HS ESTEFANÍA Administration Vitamin B Complex 1 cap 12/19/24 09:00 12/23/24 08:28 Vitamin B Complex Capsule PO 1 cap QAM ESTEFANÍA Administration Vitamin D 125 mcg 12/19/24 09:00 12/23/24 08:28 Cholecalciferol (Vitamin D3) 125 Mcg (5,000 Units) Tablet PO 125 mcg DAILY ESTEFANÍA Administration Radiology Results: ITS Impressions Chest X-Ray 12/22/24 13:41 IMPRESSION: No acute cardiopulmonary pathology. Venous Doppler Study 12/22/24 19:01 IMPRESSION: No deep venous thrombosis.
[2024-12-24] MEDS: FLUTICASONE/UMECLIDIN/VILANTER 100-62.5-25 MCG ELLIPTA 1 PUFF INHALATION (08:27)
[2024-12-24] MEDS: ENSIFENTRINE 2.5 EACH INHALATION ×2 (08:27→20:28)
[2024-12-24] MEDS: IPRATROPIUM 0.5 MG/ALBUTEROL SULFATE 2.5 MG AMPUL.NEB 3 ML INHALATION (08:33)
[2024-12-24] MEDS: PANTOPRAZOLE 40 MG TABLET PO (09:00)
[2024-12-24] MEDS: VITAMIN B COMPLEX CAPSULE 1 CAP PO (09:00)
[2024-12-24] MEDS: CHOLECALCIFEROL (VITAMIN D3) 125 MCG (5,000 UNITS) TABLET PO (09:00)
[2024-12-24] MEDS: guaiFENesin 12 HR 600 MG TABCR 1200 MG PO ×2 (09:00→21:30)
[2024-12-24] MEDS: CALCIUM CARBONATE (OSCAL) 250 MG TABLET PO (09:01)
[2024-12-24] MEDS: LOSARTAN POTASSIUM 12.5 MG TABLET PO (09:02)
[2024-12-24] MEDS: FOLIC ACID 0.4 MG TABLET PO (09:03)
[2024-12-24] MEDS: MULTIVITAMINS THERAPEUTIC TAB (*BKC) 1 TABLET PO (09:03)
[2024-12-24] MEDS: ASPIRIN 81 MG ENTERIC TABLET PO (09:03)
[2024-12-24] MEDS: FUROSEMIDE 20 MG TABLET PO (09:03)
[2024-12-24] MEDS: ATORVASTATIN 40 MG TABLET BY MOUTH (21:31)
[2024-12-25] VITALS (20 sets, daily range): BP systolic 100–106; BP diastolic 64–68; PULSE 68–87; RESP 14–20; TEMP 36.5–36.6; O2SAT 93–95
[2024-12-25] MEDS: IPRATROPIUM 0.5 MG/ALBUTEROL SULFATE 2.5 MG AMPUL.NEB 3 ML INHALATION (07:38)
[2024-12-25] MEDS: ENSIFENTRINE 2.5 EACH INHALATION ×2 (07:38→20:54)
[2024-12-25] MEDS: FLUTICASONE/UMECLIDIN/VILANTER 100-62.5-25 MCG ELLIPTA 1 PUFF INHALATION (07:39)
--- NOTE | 2024-12-25 08:12 | PM.IMPN ---
Progress Note: A&P Assessment and Plan (1) Acute respiratory failure with hypoxia and hypercapnia: Code(s): J96.01 - Acute respiratory failure with hypoxia; J96.02 - Acute respiratory failure with hypercapnia Status: Acute (2) Pneumonia: Code(s): J18.9 - Pneumonia, unspecified organism Status: Acute (3) COPD with emphysema: Code(s): J43.9 - Emphysema, unspecified Status: Acute (4) Diastolic dysfunction: Code(s): I51.89 - Other ill-defined heart diseases Status: Chronic (5) Ischemic cardiomyopathy: Code(s): I25.5 - Ischemic cardiomyopathy Status: Acute (6) Mitral valve regurgitation: Code(s): I34.0 - Nonrheumatic mitral (valve) insufficiency Status: Acute (7) Hyperglycemia: Code(s): R73.9 - Hyperglycemia, unspecified Status: Acute (8) Hypertension: Qualifiers: Hypertension type: primary hypertension Qualified Code(s): I10 - Essential (primary) hypertension Code(s): I10 - Essential (primary) hypertension Status: Chronic (9) Coronary artery disease: Code(s): I25.10 - Atherosclerotic heart disease of [place] coronary artery without angina pectoris Status: Acute Plan This is a 64-year-old male with chronic obstructive pulmonary disease, emphysema, ischemic cardiomyopathy with an EF as low as 30 to 35% though it has since normalized, diastolic dysfunction, coronary artery disease with history of stents to the ED LM into LAD and proximal to mid LAD, mitral valve regurgitation, hypertension, hyperlipidemia, gastroesophageal reflux disease, depression, and anxiety who presented to the emergency department via EMS with complaints of shortness of breath. He is known to the hospitalist service from an admission just 5 days ago in which he with shortness of breath and hypoxia for which he was treated with antibiotics, steroids, and diuretics to cover possible pneumonia, COPD, and CHF. He was discharged on azithromycin for 3 more days of which he has completed although he continues to have a productive cough productive of pulliam colored sputum, occasionally admixed with a small amount of bright red blood. Overall he is still not feeling well and his breathing is worse than his baseline. He has to stop to rest more frequently than usual. He has been using oxygen 2 L at nighttime as ordered and he has been diligent about monitoring his pulse ox which has been as low as 90% on his watch. Today he was out running errands and he reports getting increasingly short of breath although he was not exerting himself much. Rescue inhaler helped somewhat however not long prior to arrival his shortness of breath became acutely worse and he called 911. On EMS arrival his SpO2 was reportedly 65% and he was noted to be cool and clammy. He was placed on CPAP and was administered a nebulizer treatment and magnesium sulfate en route to the hospital. In the ED: He was afebrile on arrival with a blood pressure 152/78, pulse 116, respiratory rate 26, SpO2 95% on CPAP. Labs were significant for WBC count of 11.2, sodium 132, glucose 278, proBNP 307, troponin less than 0.012. ABG showed a pH of 7.315, pCO2 46.3, PO2 93.1, HC03 23.1. Chest x-ray showed bilateral basal pneumonia and underlying pulmonary edema versus pneumonitis. EKG showed sinus tachycardia without concerning ST segment changes. CPAP was transitioned to BiPAP. He was given albuterol 10 mg, methylprednisolone 125 mg IV, and levofloxacin 750 mg. He is being admitted in this setting for further treatment. BiPAP has since then been removed. Acute hypoxic respiratory failure on oxygen via nasal cannula along with requirement of BiPAP upon arrival to the ED. chest x-ray with findings of bilateral basal pneumonia. Suspected to be she related to pulmonary edema rather than pneumonia. Also does not sound like COPD exacerbation. Currently improved and down to room air COPD exacerbation continue scheduled bronchodilators. Did receive a dose of methylprednisolone in the ER. Not currently wheezing. Hold off on any further steroids bilateral basal pneumonia currently on Levaquin will continue that. Get sputum culture. Recent respiratory pathogen panel was negative. Stop Levaquin as suspicion for pneumonia is low Ischemic cardiomyopathy ejection fraction low as 30-35% since since then resolved with diastolic dysfunction. Repeat echo showed moderate to severe mitral regurgitation. He seems to have valvular heart disease with now severe mitral regurgitation. He has worsening mitral regurgitation over the past few months course. Consulted Cardiology for evaluation may need evaluation for underlying ischemic etiology. He will need follow-up with valve specialist as an outpatient basis. Discussed with Cardiology. Status post ADIN which showed severe mitral regurgitation posteriorly. Status post cardiac catheterization 12/22/2024: Triple-vessel disease noted 1. Left main: The left main coronary artery is widely patent without any significant obstructive disease. There is a patent stent in mid body of the left main extending into the LAD. 2. Left anterior descending: The LAD has a heavily calcified 70% focal in-stent restenoses. The distal portion of the stent has calcific 50% in-stent restenoses. The remainder of the LAD is angiographically free of significant disease. 3. Left circumflex: The left circumflex artery is a large caliber codominant vessel that provides 2 OM branches. The left circumflex at the ostium has a heavily calcified 70% stenosis. OM1 is small caliber vessel that has a 60-70% stenosis. OM2 is another small caliber vessel with diffuse 50-60% stenosis. 4. Right coronary artery: The RCA is a moderate caliber dominant vessel with 80% proximal focal stenosis. He is planned for CABG with MVR and has been referred to CT surgery at [place]. Awaiting bed placement. Coronary artery disease with history of stents mitral valve regurgitation now has progressed to moderate to severe over few months. See above hypertension hyperlipidemia GERD Anxiety depression DVT prophylaxis Lovenox Code status modified code Subjective Date/time seen: 12/25/24 08:12 Interval history: No overnight events. No new complaints. No chest pain or shortness of breath. Review of Systems Review of Systems: All systems reviewed & are unremarkable except as noted in HPI and below Exam Narrative: General: Nontoxic-appearing male sitting up in bed in no acute distress. HEENT: PERRL, EOMI. Sclera anicteric. Oral mucosa moist. Oropharynx clear. Neck: Supple. No JVD. Respiratory: Respirations are nonlabored he is speaking in full sentences. Lung sounds diminished bilaterally Cardiovascular: Regular rate and rhythm with S1-S2. Soft systolic murmur at the apex. Gastrointestinal: Abdomen is soft, nontender, and nondistended with positive bowel sounds. Skin: Warm and dry. No rash or lesions on limited exam. Extremities: No cyanosis, clubbing, or edema. Radial and pedal pulses intact. Neurological: Alert. Cranial nerves 2-12 are grossly intact. No gross focal deficits to casual conversation. Psychiatric: Pleasant and cooperative with normal mood and affect. Judgment and insight intact. Objective Data Vital Signs Vital Signs: Vital Signs - 24 hr 12/24/24 08:30 12/24/24 08:31 12/24/24 08:31 Temperature Pulse Rate 79 74 Respiratory Rate 18 Blood Pressure Pulse Oximetry 91 Oxygen Delivery Room Air 12/24/24 08:44 12/24/24 09:01 12/24/24 10:00 Temperature Pulse Rate 76 80 80 Respiratory Rate 18 Blood Pressure Pulse Oximetry Oxygen Delivery 12/24/24 11:57 12/24/24 12:00 12/24/24 14:00 Temperature 97.7 F Pulse Rate 72 72 82 Respiratory Rate 18 Blood Pressure 91/69 L Pulse Oximetry 94 Oxygen Delivery 12/24/24 16:00 12/24/24 16:00 12/24/24 20:00 Temperature 97.7 F Pulse Rate 73 86 Respiratory Rate 18 Blood Pressure 110/58 L Pulse Oximetry 94 Oxygen Delivery Room Air 12/24/24 20:00 12/24/24 20:28 12/24/24 20:28 Temperature Pulse Rate 77 16 L Respiratory Rate 16 Blood Pressure Pulse Oximetry 96 Oxygen Delivery 12/24/24 20:51 12/24/24 21:30 12/24/24 22:00 Temperature 97.7 F Pulse Rate 79 79 76 Respiratory Rate 18 Blood Pressure 108/72 Pulse Oximetry 97 Oxygen Delivery 12/24/24 23:46 12/25/24 00:00 12/25/24 00:00 Temperature Pulse Rate 78 75 Respiratory Rate 18 Blood Pressure Pulse Oximetry 98 Oxygen Delivery Room Air 12/25/24 02:00 12/25/24 04:00 12/25/24 04:00 Temperature Pulse Rate 79 75 Respiratory Rate Blood Pressure Pulse Oximetry Oxygen Delivery Room Air 12/25/24 06:00 12/25/24 07:59 Temperature 97.8 F Pulse Rate 68 78 Respiratory Rate 20 Blood Pressure 100/65 Pulse Oximetry 95 Oxygen Delivery Intake/Output Intake/Output: Intake & Output 12/22/24 12/23/24 12/24/24 12/25/24 23:59 23:59 23:59 23:59 Intake Total 300 1969 2620 250 Balance 300 1969 2620 250 Meds/Results Medications: Active Medications Generic Name Dose Route Start Last Admin Trade Name Freq PRN Reason Stop Dose Admin Acetaminophen 650 mg 12/18/24 21:16 12/22/24 22:38 Acetaminophen 325 Mg Tablet PO 650 mg Q6H PRN Administration Mild Pain (1-3) or Fever Albuterol/Ipratropium 3 ml 12/19/24 14:32 12/25/24 07:38 Ipratropium 0.5 Mg/Albuterol Sulfate 2.5 Mg Ampul.Neb 3 Ml INHALATION 3 ml Q6HRT PRN Administration Wheezing Aripiprazole 2 mg 12/19/24 09:00 12/24/24 09:02 Aripiprazole 2 Mg Tablet PO 2 mg DAILY ESTEFANÍA Administration Aspirin 81 mg 12/19/24 08:00 12/24/24 09:03 Aspirin 81 Mg Enteric Tablet PO 81 mg DAILY@0800 ESTEFANÍA Administration Atorvastatin Calcium 40 mg 12/19/24 21:00 12/24/24 21:31 Atorvastatin 40 Mg Tablet BY MOUTH 40 mg HS ESTEFANÍA Administration Calcium Carbonate 250 mg 12/19/24 09:00 12/24/24 09:01 Calcium Carbonate (Oscal) 250 Mg Tablet PO 250 mg QAM ESTEFANÍA Administration Carvedilol 6.25 mg 12/19/24 09:00 12/24/24 21:30 Carvedilol 6.25 Mg Tablet BY MOUTH 6.25 mg Q12HR ESTEFANÍA Administration Fluticasone/Umeclidinium/Vilanterol 1 puff 12/19/24 08:00 12/25/24 07:39 Fluticasone/Umeclidin/Vilanter 100-62.5-25 Mcg Ellipta INHALATION 1 puff DAILYRT ESTEFANÍA Administration Folic Acid 0.4 mg 12/19/24 09:00 12/24/24 09:03 Folic Acid 0.4 Mg Tablet PO 0.4 mg QAM ESTEFANÍA Administration Furosemide 20 mg 12/19/24 09:00 12/24/24 09:03 Furosemide 20 Mg Tablet PO 20 mg QAM ESTEFANÍA Administration Guaifenesin 1,200 mg 12/19/24 09:00 12/24/24 21:30 Guaifenesin 12 Hr 600 Mg Tabcr PO 1,200 mg Q12HR ESTEFANÍA Administration Losartan Potassium 12.5 mg 12/19/24 09:00 12/24/24 09:02 Losartan Potassium 12.5 Mg Tablet PO 12.5 mg DAILY ESTEFANÍA Administration Multivitamins Therapeutic 1 tablet 12/19/24 09:00 12/24/24 09:03 Multivitamins Therapeutic Tab (*Bkc) PO 1 tablet DAILY ESTEFANÍA Administration (Ensifentrine [ 2.5 ml 12/19/24 20:00 12/25/24 07:38 Ohtuvayre] 3 Mg/2.5 INHALATION 01/18/25 19:59 2.5 ml Ml Suspension For Q12HRT ESTEFANÍA Administration Nebulization)Homemed Pantoprazole Sodium 40 mg 12/19/24 09:00 12/24/24 09:00 Pantoprazole 40 Mg Tablet PO 40 mg QAM ESTEFANÍA Administration Polyethylene Glycol 17 gm 12/23/24 11:00 12/24/24 09:04 Polyethylene Glycol 3350 17 Gm Powd.Pack PO 17 gm QAM ESTEFANÍA Administration Ticagrelor 90 mg 12/19/24 09:00 12/22/24 20:13 Ticagrelor 90 Mg Tablet PO 90 mg Q12HR ESTEFANÍA Administration Trazodone HCl 100 mg 12/19/24 21:00 12/25/24 00:47 Trazodone Hcl 50 Mg Tablet PO 100 mg HS ESTEFANÍA Administration Vitamin B Complex 1 cap 12/19/24 09:00 12/24/24 09:00 Vitamin B Complex Capsule PO 1 cap QAM ESTEFANÍA Administration Vitamin D 125 mcg 12/19/24 09:00 12/24/24 09:00 Cholecalciferol (Vitamin D3) 125 Mcg (5,000 Units) Tablet PO 125 mcg DAILY ESTEFANÍA Administration Radiology Results: ITS Impressions Chest X-Ray 12/22/24 13:41 IMPRESSION: No acute cardiopulmonary pathology. Venous Doppler Study 12/22/24 19:01 IMPRESSION: No deep venous thrombosis.
[2024-12-25] MEDS: LOSARTAN POTASSIUM 12.5 MG TABLET PO (09:19)
[2024-12-25] MEDS: PANTOPRAZOLE 40 MG TABLET PO (09:20)
[2024-12-25] MEDS: CALCIUM CARBONATE (OSCAL) 250 MG TABLET PO (09:20)
[2024-12-25] MEDS: FOLIC ACID 0.4 MG TABLET PO (09:20)
[2024-12-25] MEDS: FUROSEMIDE 20 MG TABLET PO (09:20)
[2024-12-25] MEDS: ASPIRIN 81 MG ENTERIC TABLET PO (09:20)
[2024-12-25] MEDS: MULTIVITAMINS THERAPEUTIC TAB (*BKC) 1 TABLET PO (09:20)
[2024-12-25] MEDS: guaiFENesin 12 HR 600 MG TABCR 1200 MG PO ×2 (09:20→21:08)
[2024-12-25] MEDS: VITAMIN B COMPLEX CAPSULE 1 CAP PO (09:20)
[2024-12-25] MEDS: CHOLECALCIFEROL (VITAMIN D3) 125 MCG (5,000 UNITS) TABLET PO (09:20)
--- NOTE | 2024-12-25 10:36 | PCNWS ---
Weekly nutritional screen. Patient is tolerating current heart healthy diet with adequate intake 100%. No weight loss reported. No nutritional recommendations at this time.
[2024-12-25] MEDS: ATORVASTATIN 40 MG TABLET BY MOUTH (21:08)
[2024-12-26] VITALS (12 sets, daily range): BP systolic 102–135; BP diastolic 66–71; PULSE 70–92; RESP 16–20; TEMP 36.3–36.4; O2SAT 95–96
--- NOTE | 2024-12-26 08:03 | PM.IMPN ---
Progress Note: A&P Assessment and Plan (1) Acute respiratory failure with hypoxia and hypercapnia: Code(s): J96.01 - Acute respiratory failure with hypoxia; J96.02 - Acute respiratory failure with hypercapnia Status: Acute (2) Pneumonia: Code(s): J18.9 - Pneumonia, unspecified organism Status: Acute (3) COPD with emphysema: Code(s): J43.9 - Emphysema, unspecified Status: Acute (4) Diastolic dysfunction: Code(s): I51.89 - Other ill-defined heart diseases Status: Chronic (5) Ischemic cardiomyopathy: Code(s): I25.5 - Ischemic cardiomyopathy Status: Acute (6) Mitral valve regurgitation: Code(s): I34.0 - Nonrheumatic mitral (valve) insufficiency Status: Acute (7) Hyperglycemia: Code(s): R73.9 - Hyperglycemia, unspecified Status: Acute (8) Hypertension: Qualifiers: Hypertension type: primary hypertension Qualified Code(s): I10 - Essential (primary) hypertension Code(s): I10 - Essential (primary) hypertension Status: Chronic (9) Coronary artery disease: Code(s): I25.10 - Atherosclerotic heart disease of [place] coronary artery without angina pectoris Status: Acute Plan This is a 64-year-old male with chronic obstructive pulmonary disease, emphysema, ischemic cardiomyopathy with an EF as low as 30 to 35% though it has since normalized, diastolic dysfunction, coronary artery disease with history of stents to the ED LM into LAD and proximal to mid LAD, mitral valve regurgitation, hypertension, hyperlipidemia, gastroesophageal reflux disease, depression, and anxiety who presented to the emergency department via EMS with complaints of shortness of breath. He is known to the hospitalist service from an admission just 5 days ago in which he with shortness of breath and hypoxia for which he was treated with antibiotics, steroids, and diuretics to cover possible pneumonia, COPD, and CHF. He was discharged on azithromycin for 3 more days of which he has completed although he continues to have a productive cough productive of pulliam colored sputum, occasionally admixed with a small amount of bright red blood. Overall he is still not feeling well and his breathing is worse than his baseline. He has to stop to rest more frequently than usual. He has been using oxygen 2 L at nighttime as ordered and he has been diligent about monitoring his pulse ox which has been as low as 90% on his watch. Today he was out running errands and he reports getting increasingly short of breath although he was not exerting himself much. Rescue inhaler helped somewhat however not long prior to arrival his shortness of breath became acutely worse and he called 911. On EMS arrival his SpO2 was reportedly 65% and he was noted to be cool and clammy. He was placed on CPAP and was administered a nebulizer treatment and magnesium sulfate en route to the hospital. In the ED: He was afebrile on arrival with a blood pressure 152/78, pulse 116, respiratory rate 26, SpO2 95% on CPAP. Labs were significant for WBC count of 11.2, sodium 132, glucose 278, proBNP 307, troponin less than 0.012. ABG showed a pH of 7.315, pCO2 46.3, PO2 93.1, HC03 23.1. Chest x-ray showed bilateral basal pneumonia and underlying pulmonary edema versus pneumonitis. EKG showed sinus tachycardia without concerning ST segment changes. CPAP was transitioned to BiPAP. He was given albuterol 10 mg, methylprednisolone 125 mg IV, and levofloxacin 750 mg. He is being admitted in this setting for further treatment. BiPAP has since then been removed. Acute hypoxic respiratory failure on oxygen via nasal cannula along with requirement of BiPAP upon arrival to the ED. chest x-ray with findings of bilateral basal pneumonia. Suspected to be she related to pulmonary edema rather than pneumonia. Also does not sound like COPD exacerbation. Currently improved and down to room air COPD exacerbation continue scheduled bronchodilators. Did receive a dose of methylprednisolone in the ER. Not currently wheezing. Hold off on any further steroids bilateral basal pneumonia currently on Levaquin will continue that. Get sputum culture. Recent respiratory pathogen panel was negative. Stop Levaquin as suspicion for pneumonia is low Ischemic cardiomyopathy ejection fraction low as 30-35% since since then resolved with diastolic dysfunction. Repeat echo showed moderate to severe mitral regurgitation. He seems to have valvular heart disease with now severe mitral regurgitation. He has worsening mitral regurgitation over the past few months course. Consulted Cardiology for evaluation may need evaluation for underlying ischemic etiology. He will need follow-up with valve specialist as an outpatient basis. Discussed with Cardiology. Status post ADIN which showed severe mitral regurgitation posteriorly. Status post cardiac catheterization 12/22/2024: Triple-vessel disease noted 1. Left main: The left main coronary artery is widely patent without any significant obstructive disease. There is a patent stent in mid body of the left main extending into the LAD. 2. Left anterior descending: The LAD has a heavily calcified 70% focal in-stent restenoses. The distal portion of the stent has calcific 50% in-stent restenoses. The remainder of the LAD is angiographically free of significant disease. 3. Left circumflex: The left circumflex artery is a large caliber codominant vessel that provides 2 OM branches. The left circumflex at the ostium has a heavily calcified 70% stenosis. OM1 is small caliber vessel that has a 60-70% stenosis. OM2 is another small caliber vessel with diffuse 50-60% stenosis. 4. Right coronary artery: The RCA is a moderate caliber dominant vessel with 80% proximal focal stenosis. He is planned for CABG with MVR and has been referred to CT surgery at [facility]. Awaiting bed placement. Coronary artery disease with history of stents mitral valve regurgitation now has progressed to moderate to severe over few months. See above hypertension hyperlipidemia GERD Anxiety depression DVT prophylaxis Lovenox Code status modified code Subjective Date/time seen: 12/26/24 08:03 Interval history: No overnight events. No new complaints awaiting transfer. Review of Systems Review of Systems: All systems reviewed & are unremarkable except as noted in HPI and below Exam Narrative: General: Nontoxic-appearing male sitting up in bed in no acute distress. HEENT: PERRL, EOMI. Sclera anicteric. Oral mucosa moist. Oropharynx clear. Neck: Supple. No JVD. Respiratory: Respirations are nonlabored he is speaking in full sentences. Lung sounds diminished bilaterally Cardiovascular: Regular rate and rhythm with S1-S2. Soft systolic murmur at the apex. Gastrointestinal: Abdomen is soft, nontender, and nondistended with positive bowel sounds. Skin: Warm and dry. No rash or lesions on limited exam. Extremities: No cyanosis, clubbing, or edema. Radial and pedal pulses intact. Neurological: Alert. Cranial nerves 2-12 are grossly intact. No gross focal deficits to casual conversation. Psychiatric: Pleasant and cooperative with normal mood and affect. Judgment and insight intact. Objective Data Vital Signs Vital Signs: Vital Signs - 24 hr 12/25/24 09:19 12/25/24 10:00 12/25/24 12:00 Temperature Pulse Rate 87 74 Respiratory Rate Blood Pressure Pulse Oximetry Oxygen Delivery Room Air Oxygen Flow Rate Fraction of Inspired Oxygen 12/25/24 12:00 12/25/24 14:00 12/25/24 16:00 Temperature 97.7 F Pulse Rate 71 79 77 Respiratory Rate 14 Blood Pressure 102/64 Pulse Oximetry 95 Oxygen Delivery Oxygen Flow Rate Fraction of Inspired Oxygen 12/25/24 16:00 12/25/24 16:00 12/25/24 18:00 Temperature Pulse Rate 81 85 Respiratory Rate Blood Pressure Pulse Oximetry Oxygen Delivery Room Air Oxygen Flow Rate Fraction of Inspired Oxygen 12/25/24 20:00 12/25/24 20:00 12/25/24 20:55 Temperature Pulse Rate 72 78 75 Respiratory Rate 18 20 Blood Pressure Pulse Oximetry 95 Oxygen Delivery Room Air Oxygen Flow Rate Fraction of Inspired Oxygen 28 12/25/24 20:56 12/25/24 20:57 12/25/24 21:08 Temperature 97.9 F Pulse Rate 75 72 78 Respiratory Rate 20 18 Blood Pressure 106/68 Pulse Oximetry 95 95 Oxygen Delivery Oxygen Flow Rate 2 Fraction of Inspired Oxygen 28 12/25/24 22:00 12/26/24 00:00 12/26/24 00:00 Temperature Pulse Rate 77 70 72 Respiratory Rate 18 Blood Pressure Pulse Oximetry 96 95 Oxygen Delivery Room Air Oxygen Flow Rate Fraction of Inspired Oxygen 28 12/26/24 02:00 12/26/24 04:00 12/26/24 04:00 Temperature Pulse Rate 74 74 85 Respiratory Rate 19 Blood Pressure Pulse Oximetry 96 Oxygen Delivery Room Air Oxygen Flow Rate Fraction of Inspired Oxygen 12/26/24 06:00 Temperature Pulse Rate 86 Respiratory Rate Blood Pressure Pulse Oximetry Oxygen Delivery Oxygen Flow Rate Fraction of Inspired Oxygen Intake/Output Intake/Output: Intake & Output 12/23/24 12/24/24 12/25/24 12/26/24 23:59 23:59 23:59 23:59 Intake Total 19690 2620 550 Output Total 0 Balance 1969 2619 2620 550 Meds/Results Medications: Active Medications Generic Name Dose Route Start Last Admin Trade Name Freq PRN Reason Stop Dose Admin Acetaminophen 650 mg 12/18/24 21:16 12/22/24 22:38 Acetaminophen 325 Mg Tablet PO 650 mg Q6H PRN Administration Mild Pain (1-3) or Fever Albuterol/Ipratropium 3 ml 12/19/24 14:32 12/25/24 07:38 Ipratropium 0.5 Mg/Albuterol Sulfate 2.5 Mg Ampul.Neb 3 Ml INHALATION 3 ml Q6HRT PRN Administration Wheezing Aripiprazole 2 mg 12/19/24 09:00 12/25/24 09:20 Aripiprazole 2 Mg Tablet PO 2 mg DAILY ESTEFANÍA Administration Aspirin 81 mg 12/19/24 08:00 12/25/24 09:20 Aspirin 81 Mg Enteric Tablet PO 81 mg DAILY@0800 ESTEFANÍA Administration Atorvastatin Calcium 40 mg 12/19/24 21:00 12/25/24 21:08 Atorvastatin 40 Mg Tablet BY MOUTH 40 mg HS ESTEFANÍA Administration Calcium Carbonate 250 mg 12/19/24 09:00 12/25/24 09:20 Calcium Carbonate (Oscal) 250 Mg Tablet PO 250 mg QAM ESTEFANÍA Administration Carvedilol 6.25 mg 12/19/24 09:00 12/25/24 21:08 Carvedilol 6.25 Mg Tablet BY MOUTH 6.25 mg Q12HR ESTEFANÍA Administration Fluticasone/Umeclidinium/Vilanterol 1 puff 12/19/24 08:00 12/25/24 07:39 Fluticasone/Umeclidin/Vilanter 100-62.5-25 Mcg Ellipta INHALATION 1 puff DAILYRT ESTEFANÍA Administration Folic Acid 0.4 mg 12/19/24 09:00 12/25/24 09:20 Folic Acid 0.4 Mg Tablet PO 0.4 mg QAM ESTEFANÍA Administration Furosemide 20 mg 12/19/24 09:00 12/25/24 09:20 Furosemide 20 Mg Tablet PO 20 mg QAM ESTEFANÍA Administration Guaifenesin 1,200 mg 12/19/24 09:00 12/25/24 21:08 Guaifenesin 12 Hr 600 Mg Tabcr PO 1,200 mg Q12HR ESTEFANÍA Administration Losartan Potassium 12.5 mg 12/19/24 09:00 12/25/24 09:19 Losartan Potassium 12.5 Mg Tablet PO 12.5 mg DAILY ESTEFANÍA Administration Multivitamins Therapeutic 1 tablet 12/19/24 09:00 12/25/24 09:20 Multivitamins Therapeutic Tab (*Bkc) PO 1 tablet DAILY ESTEFANÍA Administration (Ensifentrine [ 2.5 ml 12/19/24 20:00 12/25/24 20:54 Ohtuvayre] 3 Mg/2.5 INHALATION 01/18/25 19:59 2.5 ml Ml Suspension For Q12HRT ESTEFANÍA Administration Nebulization)Homemed Pantoprazole Sodium 40 mg 12/19/24 09:00 12/25/24 09:20 Pantoprazole 40 Mg Tablet PO 40 mg QAM ESTEFANÍA Administration Polyethylene Glycol 17 gm 12/23/24 11:00 12/25/24 09:21 Polyethylene Glycol 3350 17 Gm Powd.Pack PO Not Given QAM ESTEFANÍA Ticagrelor 90 mg 12/19/24 09:00 12/22/24 20:13 Ticagrelor 90 Mg Tablet PO 90 mg Q12HR ESTEFANÍA Administration Trazodone HCl 100 mg 12/19/24 21:00 12/26/24 01:01 Trazodone Hcl 50 Mg Tablet PO 100 mg HS ESTEFANÍA Administration Vitamin B Complex 1 cap 12/19/24 09:00 12/25/24 09:20 Vitamin B Complex Capsule PO 1 cap QAM ESTEFANÍA Administration Vitamin D 125 mcg 12/19/24 09:00 12/25/24 09:20 Cholecalciferol (Vitamin D3) 125 Mcg (5,000 Units) Tablet PO 125 mcg DAILY ESTEFANÍA Administration Radiology Results: ITS Impressions Chest X-Ray 12/22/24 13:41 IMPRESSION: No acute cardiopulmonary pathology. Venous Doppler Study 12/22/24 19:01 IMPRESSION: No deep venous thrombosis. Labs Labs: Laboratory Results - last 24 hr 12/19/24 21:38 M. pneumoniae (PCR)
--- NOTE | 2024-12-26 08:22 | PM.TDS ---
Transfer Discharge Sum: Prov Provider Date of admission: 12/18/24 18:12 Primary care physician: Dieudonne Posada MD Admitting clinician: Heather Hale MD Consults: 12/19/24 Consult to Physician Routine Comment: Spoke with and notified him of consult Consulting Provider: Dieudonne Mcwilliams donor processor/MD group to consult: Pulmonary Reason for consultation: Respiratory failure pneumonia Has provider been notified: Yes 12/19/24 12:21 Consult to Physician Routine Comment: Tano BAKER DR notified of consult Consulting Provider: Zion Freedman donor processor/MD group to consult: Cardiology Reason for consultation: Recurrent pulmonary edema Has provider been notified: Yes 12/22/24 Consult to Physician Routine Comment: Spoke to 12/22 1037 ([facility]) Consulting Provider: Claritza Craft donor processor/MD group to consult: HCG Reason for consultation: RHC and diagnostic LHC Has provider been notified: Yes DS: Admitting Diagnosis Discharge Date 12/24/2024 Admitting Diagnosis Shortness of breath DS: Discharge Diagnosis Discharge Diagnosis (1) Acute respiratory failure with hypoxia and hypercapnia: Code(s): J96.01 - Acute respiratory failure with hypoxia; J96.02 - Acute respiratory failure with hypercapnia Status: Acute (2) Pneumonia: Code(s): J18.9 - Pneumonia, unspecified organism Status: Acute (3) COPD with emphysema: Code(s): J43.9 - Emphysema, unspecified Status: Acute (4) Diastolic dysfunction: Code(s): I51.89 - Other ill-defined heart diseases Status: Chronic (5) Ischemic cardiomyopathy: Code(s): I25.5 - Ischemic cardiomyopathy Status: Acute (6) Mitral valve regurgitation: Code(s): I34.0 - Nonrheumatic mitral (valve) insufficiency Status: Acute (7) Hyperglycemia: Code(s): R73.9 - Hyperglycemia, unspecified Status: Acute (8) Hypertension: Qualifiers: Hypertension type: primary hypertension Qualified Code(s): I10 - Essential (primary) hypertension Code(s): I10 - Essential (primary) hypertension Status: Chronic (9) Coronary artery disease: Code(s): I25.10 - Atherosclerotic heart disease of [place] coronary artery without angina pectoris Status: Acute Transfer Discharge Sum: Med Medications Active and Home Medications: Home Medications trazodone 100 mg tablet 100 mg PO HS 11/10/22 [History Confirmed 12/18/24] aspirin 81 mg tablet,delayed release 81 mg PO DAILY@0800 #90 tabs 06/19/23 [Rx Confirmed 12/18/24] calcium 100 mg capsule 100 mg PO DAILY 06/19/23 [History Confirmed 12/18/24] losartan 25 mg tablet 12.5 mg (1/2 x 25 mg) PO DAILY #90 tabs 11/21/23 [Rx Confirmed 12/18/24] Trelegy Ellipta 100 mcg-62.5 mcg-25 mcg powder for inhalation (vzguhuzyhfc-hoostrgmh-qsezfccl) 1 inh inhalation QAM #60 ea 03/06/24 [Rx Confirmed 12/18/24] multivitamin (Daily Multi-Vitamin tablet) 1 tablet PO DAILY 03/13/24 [History Confirmed 12/18/24] albuterol sulfate 1.25 mg/3 mL solution for nebulization 1.25 mg (3 mL) inhalation Q6H PRN shortness of breath or wheezing #360 mL 07/31/24 [Rx Confirmed 12/18/24] alendronate 70 mg tablet 70 mg PO WEEKLY #12 tabs 09/08/24 [Rx Confirmed 12/18/24] aripiprazole 2 mg tablet 2 mg PO DAILY 09/08/24 [History Confirmed 12/18/24] omeprazole 20 mg capsule,delayed release 20 mg PO DAILY #90 caps 09/08/24 [Rx Confirmed 12/18/24] vitamin B complex-folic acid 0.4 mg tablet (B Complex 1 (with folic acid)) 1 tablet PO DAILY 09/08/24 [History Confirmed 12/18/24] ticagrelor 90 mg tablet (Brilinta) 90 mg PO Q12HR #180 tabs 09/24/24 [Rx Confirmed 12/18/24] ensifentrine 3 mg/2.5 mL suspension for nebulization (Ohtuvayre) 2.5 ml inhalation QAM AND QPM #150 mL 10/29/24 [Rx Confirmed 12/18/24] furosemide 20 mg tablet 20 mg PO QAM #30 tabs 11/19/24 [Rx Confirmed 12/18/24] carvedilol 6.25 mg tablet See Rx Instructions .Route .COMPLEX #60 tabs 11/26/24 [Rx Confirmed 12/18/24] albuterol sulfate 90 mcg/actuation aerosol inhaler 2 puff inhalation Q6H PRN shortness of breath or wheezing 12/13/24 [History Confirmed 12/18/24] cholecalciferol (vitamin D3) 125 mcg (5,000 unit) capsule 5,000 unit PO DAILY 12/13/24 [History Confirmed 12/18/24] benzonatate 100 mg capsule 100 mg PO TID PRN Cough #30 caps 12/15/24 [Rx Confirmed 12/18/24] guaifenesin 600 mg tablet, extended release 12 hr (Mucus Relief ER) 600 mg PO Q12HR #30 tabs 12/15/24 [Rx Confirmed 12/18/24] atorvastatin 80 mg tablet See Rx Instructions .Route .COMPLEX #30 tabs 12/16/24 [Rx Confirmed 12/18/24] Active Medications Acetaminophen (Acetaminophen 325 Mg Tablet) 650 mg PO Q6H PRN PRN Reason: Mild Pain (1-3) or Fever Last Admin: 12/22/24 22:38 Dose: 650 mg Albuterol/Ipratropium (Ipratropium 0.5 Mg/Albuterol Sulfate 2.5 Mg Ampul.Neb 3 Ml) 3 ml INHALATION Q6HRT PRN PRN Reason: Wheezing Last Admin: 12/22/24 21:22 Dose: 3 ml Aripiprazole (Aripiprazole 2 Mg Tablet) 2 mg PO DAILY [facility] Last Admin: 12/23/24 08:28 Dose: 2 mg Aspirin (Aspirin 81 Mg Enteric Tablet) 81 mg PO DAILY@0800 [facility] Last Admin: 12/23/24 08:28 Dose: 81 mg Atorvastatin Calcium (Atorvastatin 40 Mg Tablet) 40 mg BY MOUTH [facility] Last Admin: 12/23/24 20:28 Dose: 40 mg Calcium Carbonate (Calcium Carbonate (Oscal) 250 Mg Tablet) 250 mg PO QAM [facility] Last Admin: 12/23/24 08:28 Dose: 250 mg Carvedilol (Carvedilol 6.25 Mg Tablet) 6.25 mg BY MOUTH Q12HR [facility] Last Admin: 12/23/24 20:29 Dose: 6.25 mg Fluticasone/Umeclidinium/Vilanterol (Fluticasone/Umeclidin/Vilanter 100-62.5-25 Mcg Ellipta) 1 puff INHALATION DAILYRT [facility] Last Admin: 12/23/24 08:14 Dose: 1 puff Folic Acid (Folic Acid 0.4 Mg Tablet) 0.4 mg PO QAM [facility] Last Admin: 12/23/24 08:28 Dose: 0.4 mg Furosemide (Furosemide 20 Mg Tablet) 20 mg PO QAM [facility] Last Admin: 12/23/24 08:28 Dose: 20 mg Guaifenesin (Guaifenesin 12 Hr 600 Mg Tabcr) 1,200 mg PO Q12HR [facility] Last Admin: 12/23/24 20:28 Dose: 1,200 mg Losartan Potassium (Losartan Potassium 12.5 Mg Tablet) 12.5 mg PO DAILY [facility] Last Admin: 12/23/24 08:28 Dose: 12.5 mg Multivitamins Therapeutic (Multivitamins Therapeutic Tab (*Bkc)) 1 tablet PO DAILY [facility] Last Admin: 12/23/24 08:28 Dose: 1 tablet (Ensifentrine [ Ohtuvayre] 3 Mg/2.5 Ml Suspension For Nebulization)Homemed 2.5 ml INHALATION Q12HRT [facility] Stop: 01/18/25 19:59 Last Admin: 12/23/24 20:36 Dose: 2.5 ml Pantoprazole Sodium (Pantoprazole 40 Mg Tablet) 40 mg PO QAM [facility] Last Admin: 12/23/24 08:28 Dose: 40 mg Polyethylene Glycol (Polyethylene Glycol 3350 17 Gm Powd.Pack) 17 gm PO QAM [facility] Last Admin: 12/23/24 11:49 Dose: 17 gm Ticagrelor (Ticagrelor 90 Mg Tablet) 90 mg PO Q12HR [facility] Last Admin: 12/22/24 20:13 Dose: 90 mg Trazodone HCl (Trazodone Hcl 50 Mg Tablet) 100 mg PO HS [facility] Last Admin: 12/24/24 00:37 Dose: 100 mg Vitamin B Complex (Vitamin B Complex Capsule) 1 cap PO QAM [facility] Last Admin: 12/23/24 08:28 Dose: 1 cap Vitamin D (Cholecalciferol (Vitamin D3) 125 Mcg (5,000 Units) Tablet) 125 mcg PO DAILY [facility] Last Admin: 12/23/24 08:28 Dose: 125 mcg Transfer Discharge Sum: Hosp Hospital Course Hospital course: Edgar Laguna is a 64 year old male with chronic obstructive pulmonary disease, emphysema, ischemic cardiomyopathy with an EF as low as 30 to 35% though it has since normalized, diastolic dysfunction, coronary artery disease with history of stents to the ED LM into LAD and proximal to mid LAD, mitral valve regurgitation, hypertension, hyperlipidemia, gastroesophageal reflux disease, depression, and anxiety who presented to the emergency department via EMS with complaints of shortness of breath. He is known to the hospitalist service from an admission just 5 days ago in which he with shortness of breath and hypoxia for which he was treated with antibiotics, steroids, and diuretics to cover possible pneumonia, COPD, and CHF. He was discharged on azithromycin for 3 more days of which he has completed although he continues to have a productive cough productive of pulliam colored sputum, occasionally admixed with a small amount of bright red blood. Overall he is still not feeling well and his breathing is worse than his baseline. He has to stop to rest more frequently than usual. He has been using oxygen 2 L at nighttime as ordered and he has been diligent about monitoring his pulse ox which has been as low as 90% on his watch. Today he was out running errands and he reports getting increasingly short of breath although he was not exerting himself much. Rescue inhaler helped somewhat however not long prior to arrival his shortness of breath became acutely worse and he called 911. On EMS arrival his SpO2 was reportedly 65% and he was noted to be cool and clammy. He was placed on CPAP and was administered a nebulizer treatment and magnesium sulfate en route to the hospital. In the ED: He was afebrile on arrival with a blood pressure 152/78, pulse 116, respiratory rate 26, SpO2 95% on CPAP. Labs were significant for WBC count of 11.2, sodium 132, glucose 278, proBNP 307, troponin less than 0.012. ABG showed a pH of 7.315, pCO2 46.3, PO2 93.1, HC03 23.1. Chest x-ray showed bilateral basal pneumonia and underlying pulmonary edema versus pneumonitis. EKG showed sinus tachycardia without concerning ST segment changes. CPAP was transitioned to BiPAP. He was given albuterol 10 mg, methylprednisolone 125 mg IV, and levofloxacin 750 mg. He is being admitted in this setting for further treatment. BiPAP has since then been removed. Acute hypoxic respiratory failure on oxygen via nasal cannula along with requirement of BiPAP upon arrival to the ED. chest x-ray with findings of bilateral basal pneumonia. Suspected to be she related to pulmonary edema rather than pneumonia. Also does not sound like COPD exacerbation. Currently improved and down to room air COPD exacerbation continue scheduled bronchodilators. Did receive a dose of methylprednisolone in the ER. Not currently wheezing. Hold off on any further steroids bilateral basal pneumonia currently on Levaquin will continue that. Get sputum culture. Recent respiratory pathogen panel was negative. Stop Levaquin as suspicion for pneumonia is low Ischemic cardiomyopathy ejection fraction low as 30-35% since since then resolved with diastolic dysfunction. Repeat echo showed moderate to severe mitral regurgitation. He seems to have valvular heart disease with now severe mitral regurgitation. He has worsening mitral regurgitation over the past few months course. Consulted Cardiology for evaluation may need evaluation for underlying ischemic etiology. He will need follow-up with valve specialist as an outpatient basis. Discussed with Cardiology. Status post ADIN which showed severe mitral regurgitation posteriorly. Status post cardiac catheterization 12/22/2024: Triple-vessel disease noted 1. Left main: The left main coronary artery is widely patent without any significant obstructive disease. There is a patent stent in mid body of the left main extending into the LAD. 2. Left anterior descending: The LAD has a heavily calcified 70% focal in-stent restenoses. The distal portion of the stent has calcific 50% in-stent restenoses. The remainder of the LAD is angiographically free of significant disease. 3. Left circumflex: The left circumflex artery is a large caliber codominant vessel that provides 2 OM branches. The left circumflex at the ostium has a heavily calcified 70% stenosis. OM1 is small caliber vessel that has a 60-70% stenosis. OM2 is another small caliber vessel with diffuse 50-60% stenosis. 4. Right coronary artery: The RCA is a moderate caliber dominant vessel with 80% proximal focal stenosis. He is planned for CABG with MVR and has been referred to CT surgery at [place]. Patient was eventually transferred to [place] after bed was available. Coronary artery disease with history of stents mitral valve regurgitation now has progressed to moderate to severe over few months. See above hypertension hyperlipidemia GERD Anxiety depression DVT prophylaxis Lovenox Code status modified code Patient Condition: Stable Time Spent with Patient Time attestation: Total time spent providing and/or coordinating transfer services: 40 minutes Exam Narrative: General: Nontoxic-appearing male sitting up in bed in no acute distress. HEENT: PERRL, EOMI. Sclera anicteric. Oral mucosa moist. Oropharynx clear. Neck: Supple. No JVD. Respiratory: Respirations are nonlabored he is speaking in full sentences. Lung sounds diminished bilaterally Cardiovascular: Regular rate and rhythm with S1-S2. Soft systolic murmur at the apex. Gastrointestinal: Abdomen is soft, nontender, and nondistended with positive bowel sounds. Skin: Warm and dry. No rash or lesions on limited exam. Extremities: No cyanosis, clubbing, or edema. Radial and pedal pulses intact. Neurological: Alert. Cranial nerves 2-12 are grossly intact. No gross focal deficits to casual conversation. Psychiatric: Pleasant and cooperative with normal mood and affect. Judgment and insight intact. DS: Data Data Completed and Pending Labs on day of discharge: Preliminary micro results at discharge 12/19/24 21:38 Sputum Culture - Preliminary Sputum 12/18/24 17:23 Blood Culture - Preliminary Blood 12/18/24 17:20 Blood Culture - Preliminary Blood Procedures/Treatments: Exam Type: CA echo transesophageal Complete two-dimensional, color flow and Doppler transesophageal study is performed. Staff Referring Physician: Cuate Jane Asp Developer: Sara Escobar Ordering Physician: Zion Freedman DO Attending Provider: Heather Hale Summary 1. Transesophageal echocardiogram. 2. Left ventricular chamber dimension is normal. 3. Left ventricular systolic function is normal with an ejection fraction of 60-65% by visual estimation. 4. The left ventricular diastolic function is indeterminate as it was not assessed. 5. There is mild aortic valve sclerosis. 6. The mitral valve has moderate anterior prolapse. 7. The posterior leaflet appears to be restricted. 8. There is severe posteriorly directed mitral valve regurgitation. Procedure Details Risks/benefits/alternative to ADIN discuss with patient and he is agreeable. He was monitored electrocardiographically, vitals. He was in normal rhythm at HR 75 bpm, BP 115/75 mmHg, pulse ox >90% throughout procedure. He was given Cetacaine spray x 2 to posterior oropharynx and Versed 2 mg and Fentanyl 25 mcg IV for conscious sedation. He swallowed probe without incident. Multiple images obtained. Agitated saline injection x 1. ADIN probe withdrawn and no blood on ADIN probe tip. Patient tolerated procedure well with no complications. Left Ventricle Left ventricular chamber dimension is normal. Left ventricular systolic function is normal with an ejection fraction of 60-65% by visual estimation. The left ventricular diastolic function is indeterminate as it was not assessed. Transesophageal echocardiogram. Right Ventricle Right ventricular chamber dimension is normal. Right ventricular systolic function is normal. Left Atria Left atrial chamber dimension is moderately enlarged. Right Atria Right atrial chamber dimension is normal. Atrial Septum Intact interatrial septum visualized by 2D and agitated saline imaging. Agitated saline injection opacified right side cardiac chambers without shunt to left side cardiac chambers. Atrial Appendage There is no thrombus visualized in the left atrial appendage. Aortic Valve The aortic valve is trileaflet. There is mild aortic valve sclerosis. There is no aortic valve stenosis. There is no aortic valve regurgitation. Pulmonic Valve There is no pulmonic regurgitation. Mitral Valve The mitral valve has moderate anterior prolapse. There is no mitral valve stenosis. There is severe posteriorly directed mitral valve regurgitation. The posterior leaflet appears to be restricted. Tricuspid Valve There is no tricuspid valve regurgitation. Pericardium/Pleural There is no pericardial effusion. Inferior Vena Cava Inferior vena cava is not well visualized. Aorta The aortic root size at the sinus of Valsalva is normal. Cardiac Cath Procedure Note Date of procedure:: 12/22/24 Performing physician:: CATHETERIZATION LABORATORY REPORT Procedure Date: 12/22/2024 Referring Physician: Dr. Freedman Anesthesia: Versed and Fentanyl were ordered and given in my presence at 1420, procedure ended at 1508. Supervision of nurse, Laurie Gray monitored moderate sedation with 1mg Versed and 100mcg Fentanyl was provided for 48 minutes. Pre-op Diagnosis: Severe mitral regurgitation Post-op Diagnosis: Severe mitral regurgitation Obstructive 3 vessel CAD Procedure(s): Left heart catheterization with coronary angiography Right heart catheterization Access Site: Right radial artery Right brachial vein Right femoral vein Brief History and Clinical Indications: 64-year-old man with COPD and CAD status post PCI from mid LAD to left main found to have severe mitral regurgitation and acute diastolic heart failure due to define his coronary anatomy prior to surgical valve correction. All risks, benefits and alternatives to left heart catheterization with or without percutaneous coronary intervention was discussed at length with the patient. Risk of complications including but not limited to bleeding, infection, arrhythmia, stroke, worsening kidney function, blood loss, groin hematoma, limb loss, emergency coronary artery bypass grafting, and even were discussed with the patient and all questions were answered. The patient understood and wished to proceed. Time out called, patient name, date of , medical record number, allergies, procedure performed, identify Call Center Consultant, patient and staff member concurred with accurate data, procedure carried on. Findings: LEFT HEART CATHETERIZATION FINDINGS: 1. Left main: The left main coronary artery is widely patent without any significant obstructive disease. There is a patent stent in mid body of the left main extending into the LAD. 2. Left anterior descending: The LAD has a heavily calcified 70% focal in-stent restenoses. The distal portion of the stent has calcific 50% in-stent restenoses. The remainder of the LAD is angiographically free of significant disease. 3. Left circumflex: The left circumflex artery is a large caliber codominant vessel that provides 2 OM branches. The left circumflex at the ostium has a heavily calcified 70% stenosis. OM1 is small caliber vessel that has a 60-70% stenosis. OM2 is another small caliber vessel with diffuse 50-60% stenosis. 4. Right coronary artery: The RCA is a moderate caliber dominant vessel with 80% proximal focal stenosis. 5. Left ventricle: A. End-diastolic pressure 6 mmHg. B. LV gram deferred. C. No significant gradient across aortic valve on catheter pullback. 6. Opening AO pressure 106/61 and closing AO pressure 109/60 RIGHT HEART CATHETERIZATION FINDINGS: Pressures (mmHg): RA: 5 RV: 31/3 Left PA: 27/11 (18) Right PA: 28/10 (18) Left PCWP: 7 (v 10) Right PCWP: 13 (v 17) Saturations (%): PA: 65.2 Arterial: 91 CO/CI: Navid: 5.1/2.6 Description of Procedure: Informed consent signed and placed in the chart. Patient transferred to optical lab technician room. Prepped and draped in usual sterile fashion. 2% lidocaine injected subcutaneously in right brachial area. Right review vein was accessed using micropuncture technique via ultrasound guidance. 7FR sheath placed. Given difficulties advancing J-wire, we use a Versacore wire that was able to be advanced into the IVC through the right atrium and we exchanged the Versacore for a [place] wire via a 4 [place] glide catheter. However as we have managed the 7 [place]ili [place], we were met with resistance and converted to femoral approach for the right heart catheterization. 2% lidocaine in right groin area. Micropuncture needle used to access right femoral vein with Seldinger technique under ultrasound and fluoroscopic guidance. J wire advanced, micropuncture cannula placed, and exchanged out for a 7 [place] sheath. The [place]-Zev catheter was then advanced into the right atrium, right ventricle, pulmonary artery, left pulmonary artery, right pulmonary artery, and oximetry was obtained from the main pulmonary artery. Wedge pressure were obtained from both sides given eccentric nature of the severe mitral regurgitation. Attention was then turned to the coronary catheterization part of the procedure. 2% lidocaine injected subcutaneously in right wrist area. 22-gauge venipuncture catheter used to access the right radial artery with the Seldinger technique. 6-FR slender sheath placed in right radial artery. Nitroglycerin 200mcg, Verapamil 2.5mg, and Heparin 5000U was given intraarterial through the sheath. J wire advanced under fluoroscopy 5F TIG diagnostic catheter engaged Left Main Coronary Artery. 5F TIG diagnostic catheter engaged Right Coronary Artery Multiple orthogonal angiogram obtained and reviewed 5F TIG diagnostic catheter crossed aortic valve to obtain LVEDP, LV angiogram deferred. Hemostasis was achieved by application of TR band. Assessment: Obstructive 3 vessel coronary artery disease Normal pulmonary pressures Post Operative Condition: Stable No significant blood loss Disposition: Floor Plan: The patient will be monitored in the recovery area. The above findings were discussed with the referring physician. Continue aggressive medical therapy and risk factor modification. Y[facility] [place] Interventional Cardiology Exam Type: CA echo limited w contrast Limited two-dimensional transthoracic echocardiogram is performed with contrast. Staff Referring Physician: Maryann Haynes III Asp Developer: Anna London Attending Provider: Heather Hale Contrast/Agitated Saline Contrast/Ag. Saline: Definity Amount: 2.00 ml Administered By: Anna London Reason for Poor Study: poor echocardiographic windows Summary 1. No parasternal short axis views. 2. Definity contrast administered improved wall motion interpretation. 3. Left ventricular chamber dimension is normal. 4. Left ventricular systolic function is normal, estimated at 60-65. 5. The left ventricular diastolic function is grade I diastolic dysfunction. 6. E/e' 11 is mildly elevated. 7. Left atrial chamber dimension is mildly enlarged. 8. The aortic valve is not well visualized. Cannot determine number of aortic valve leaflets. 9. The mitral valve has mildly calcified leaflets. 10. There is moderate to severe mitral valve regurgitation. Left Ventricle E/e' 11 is mildly elevated. Left ventricular chamber dimension is normal. Left ventricular systolic function is normal, estimated at 60-65. The left ventricular diastolic function is grade I diastolic dysfunction. Definity contrast administered improved wall motion interpretation. No parasternal short axis views. Right Ventricle Right ventricular chamber dimension is normal. Right ventricular systolic function is normal. Left Atria Left atrial chamber dimension is mildly enlarged. Right Atria Right atrial chamber dimension is normal. Aortic Valve The aortic valve is not well visualized. Cannot determine number of aortic valve leaflets. There is no aortic valve stenosis. There is no aortic valve regurgitation. Pulmonic Valve The pulmonic valve is not well visualized. Mitral Valve The mitral valve has mildly calcified leaflets. There is no mitral valve stenosis. There is moderate to severe mitral valve regurgitation. Tricuspid Valve There is no tricuspid valve regurgitation. Pericardium/Pleural There is no pericardial effusion. Inferior Vena Cava Inferior vena cava is not well visualized. Aorta The aortic root size at the sinus of Valsalva is normal. Imaging Radiologist's impression: ITS Impressions Chest X-Ray 12/18/24 17:31 IMPRESSION: Bilateral basal pneumonia. Underlying pulmonary edema versus pneumonitis. Chest X-Ray 12/22/24 13:41 IMPRESSION: No acute cardiopulmonary pathology. Venous Doppler Study 12/22/24 19:01 IMPRESSION: No deep venous thrombosis.
[2024-12-26] MEDS: FLUTICASONE/UMECLIDIN/VILANTER 100-62.5-25 MCG ELLIPTA 1 PUFF INHALATION (08:59)
[2024-12-26] MEDS: ENSIFENTRINE 2.5 EACH INHALATION (09:00)
[2024-12-26] MEDS: guaiFENesin 12 HR 600 MG TABCR 1200 MG PO (09:17)
[2024-12-26] MEDS: ASPIRIN 81 MG ENTERIC TABLET PO (09:17)
[2024-12-26] MEDS: FUROSEMIDE 20 MG TABLET PO (09:17)
[2024-12-26] MEDS: FOLIC ACID 0.4 MG TABLET PO (09:17)
[2024-12-26] MEDS: CALCIUM CARBONATE (OSCAL) 250 MG TABLET PO (09:17)
[2024-12-26] MEDS: MULTIVITAMINS THERAPEUTIC TAB (*BKC) 1 TABLET PO (09:17)
[2024-12-26] MEDS: PANTOPRAZOLE 40 MG TABLET PO (09:17)
[2024-12-26] MEDS: CHOLECALCIFEROL (VITAMIN D3) 125 MCG (5,000 UNITS) TABLET PO (09:17)
[2024-12-26] MEDS: LOSARTAN POTASSIUM 12.5 MG TABLET PO (09:17)
[2024-12-26] MEDS: VITAMIN B COMPLEX CAPSULE 1 CAP PO (09:17)
== END 2024-12-26 19:23 | disposition short-term general hospital (02) | DRG 192 ==
LOC: ANHED 18:10 → ANHIMU 19:15 → ANH2MED 12-22 08:13 → ANHIMU 12-25 07:13 → ANH2MED 12-29 08:31 → ANHIMU 12-29 08:31
PROVIDERS: Internal Medicine; Internal Medicine Cardiovascular Disease; Physician Assistant; Admitting Provider Internal Medicine; Emergency Provider Emergency Medicine; PCP Emergency Medicine; Visit Provider Internal Medicine
PROC: B24BZZ4 Ultrasonography of Heart with Aorta, Transesophageal (ICD-10-PCS; CPT 93312; principal; 2024-12-22 08:30)
PROC: 4A023N8 Measurement of Cardiac Sampling and Pressure, Bilateral, Percutaneous Approach (ICD-10-PCS; CPT 93453; principal; 2024-12-22 12:00)
PROC: 4A023N8 Measurement of Cardiac Sampling and Pressure, Bilateral, Percutaneous Approach (ICD-10-PCS; 2024-12-22 12:00)
DX: I34.0 Nonrheumatic mitral (valve) insufficiency (principal); J96.01 Acute respiratory failure with hypoxia; J96.02 Acute respiratory failure with hypercapnia; J81.0 Acute pulmonary edema; I11.9 Hypertensive heart disease without heart failure; I25.10 Atherosclerotic heart disease of native coronary artery without angina pectoris; T82.855A Stenosis of coronary artery stent, initial encounter; I25.84 Coronary atherosclerosis due to calcified coronary lesion; J43.9 Emphysema, unspecified; F12.90 Cannabis use, unspecified, uncomplicated; I25.5 Ischemic cardiomyopathy; E78.5 Hyperlipidemia, unspecified; I16.0 Hypertensive urgency; F10.10 Alcohol abuse, uncomplicated; K21.9 Gastro-esophageal reflux disease without esophagitis; F32.A Depression, unspecified; F41.9 Anxiety disorder, unspecified; Z95.5 Presence of coronary angioplasty implant and graft; Z87.891 Personal history of nicotine dependence
CPT/HCPCS: 36415; 36600; 71045; 80048; 80053; 80061; 82306; 82375; 82805; 83036; 83050; 83605; 83735; 83880; 84145; 84484; 85018; 85025; 85027; 85610; 85730; 86140; 87040; 87070; 87205; 87581; 87636; 87641; 87899; 93005; 93308; 93312; 93320; 93325; 93460; 93971; 94002; 94640; 94667; 96374; 99285; A9270; C1760; C1769; C1887; C1894; C8924; G0269; J1644; J1956; J2003; J2250; J2305; J2919; J3010; J7040; J7050; Q9957

== ENCOUNTER 2025-01-09 05:22 | Emergency (ER) | payer OTHER, SELFPAY ==
[2025-01-09] VITALS (7 sets, daily range): BP systolic 103–134; BP diastolic 68–87; PULSE 100–108; RESP 16–22; TEMP 37.7; O2SAT 93–99
--- NOTE | ~2025-01-09 | XR_ITS ---
CHEST RADIOGRAPH CLINICAL HISTORY: Chest pain . COMPARISON: 12/22/2024 TECHNIQUE: Single portable view of the chest. FINDINGS Fixation projecting over the sternum, an interval change from prior. The remainder of the cardiomediastinal silhouette is otherwise unremarkable. Increased interstitial markings are identified bilaterally, findings suggesting mild pulmonary vascul ar congestion. The lungs are otherwise clear. IMPRESSION: Mild pulmonary vascular congestion, without focal infiltrate or effusion. Reviewed, dictated and finalized at location A.
[2025-01-09] MEDS: oxyCODONE HCL (*CRX) 5 MG TAB IR PO (05:41)
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
--- OUTSIDE RECORDS SUMMARY | 2025-01-09 05:46 | XMS_ITS | Clinical Summary ---
Author Organization [facility] Address [address] [facility] [place] [address] Phone Care Team Providers Care Taker Off Hemp Fiber Name Role Phone Ivette Barba APRN, SUPERVISOR MOLD CONSTRUCTION Primary Care Pro vider Allergies No known active allergies Medications buPROPion, Smoking Deter, (ZYBAN) 150 MG TABLET SR 12 HR Take 150 mg by mouth 2 times daily. Active diazePAM (VALIUM) 5 MG Tablet Take 5 mg by mouth every 8 hours as needed. Active famotidine (PEPCID) 20 MG Tablet Take 20 mg by mouth 2 times daily. Active [place]-3 Fatty Acids (FISH OIL PO) Take by [...] Comments Blood Pressure 120/70 06/27/2021 1:33 PM CANTEEN OPERATOR Pulse 66 06/27/2021 1:33 PM CANTEEN OPERATOR Temperature 36.6 C (97.9 F) 06/27/2021 1:33 PM CANTEEN OPERATOR Respiratory Rate 16 06/27/2021 1:33 PM CANTEEN OPERATOR Oxygen Saturation 97% 06/27/2021 1:33 PM CANTEEN OPERATOR Inhaled Oxygen Concentration - - Weight 78.1 kg (172 lb 1.6 oz) 06/27/2021 1:33 P M CANTEEN OPERATOR Height 180.3 cm (5' 11) 06/27/2021 1:33 PM CANTEEN OPERATOR Body Mass Index 24 06/27/2021 1:33 PM CANTEEN OPERATOR Plan of Treatment Health Maintenance Due Date [...] age to complete this topic Insurance MEDICAID [place] Care Teams Taker Off Hemp Fiber Relationship Specialty Start Date End Date Ivette Barba, MINISTER ASSISTANT, SUPERVISOR MOLD CONSTRUCTION [address] [place], [place] [id number] PCP - General Certified Nurse Practitioner 06/09/21
--- OUTSIDE RECORDS SUMMARY | 2025-01-09 05:46 | XMS_ITS | Clinical Summary ---
Author Organization [facility] Address [address] [place] [address] Care Team Providers Care Marketing Services Manager Name Role Phone Ivette Barba APRN-BIG DATA LEAD Primary Care Provider Source Comments [facility]non-owned Affiliates and Associated Physician Practices is amultiple site organization consisting of ambulatory clinics and hospital sitesin [place], [place], [place] and [place]. This disclosure is being madepursuant to the Care Everywhere program and may not contain all information available regarding this patient. Last updated 18.[employer] [facility] Allergies No known active allergies Medications * [...] on file Legal Sex Male 12:54 PM PHILOSOPHY LECTURER Gender Identity Not on file Sexual Orientation [...] patient's age to complete this topic Insurance [facility] Care Teams Marketing Services Manager Relationship Specialty Start Date End Date Ivette Barba, SENIOR SQL SERVER DATABASE DEVELOPER-BIG DATA LEAD [address] [place] [address] PCP - General 11/10/21
--- NOTE | 2025-01-09 05:47 | ECG_ITS ---
Test Date: 2025-01-09 06:13:02 Measurements Intervals [place] Rate: 109 P: 56 DC: 175 QRS: 79 QRSD: 93 T: 65 QT: 323 QTc: 436 Interpretive Statements SINUS TACHYCARDIA BASELINE ARTIFACT- I, II, III, AVR, AVL, AVF, V2, V4-V6 ABNORMAL ECG Compared to ECG 12/18/2024 17:09:54 NO SIGNIFICANT CHANGE Electronically Signed On 01-09-2025 06:16:40 CDT by Zion Freedman D.O.
[2025-01-09] MEDS: IPRATROPIUM 0.5 MG/ALBUTEROL SULFATE 2.5 MG AMPUL.NEB 3 ML 6 ML INHALATION (05:50)
[2025-01-09 06:10] LABS: Hematocrit 29.4 % (42.0-52.0); Hemoglobin 9.2 g/dL (14.0-18.0); Immature Granulocyte Percent A 1.2 % (0-0.5); Lymphocytes Absolute Auto 1.32 K/mm3 (0.9-3.2); Mean Corpuscular HGB Conc 31.3 g/dl (32-36); Mean Corpuscular Hemoglobin 32.2 pg (26-34); Mean Corpuscular Volume 102.8 fl (80-100); Nucleated Red Blood Cells Absolute Auto 0.000 K/mm3 (0.0-0.012); Nucleated Red Blood Cells Perc 0.0 % (0.0-0.2); Platelet Count Result 241 k/mm3 (150-375); Red Blood Count 2.86 M/mm3 (4.6-6.20); White Blood Count 7.4 K/mm3 (4.5-10.0)
[2025-01-09 06:33] LABS: Alanine Aminotransferase 25 U/L (6-50); Albumin Level 3.8 g/dL (3.5-5.1); Alkaline Phosphatase 82 U/L (38-126); Anion Gap 4 mmol/L (4-12); Aspartate Amino Transferase 39 U/L (17-59); Bilirubin,Total 0.5 mg/dL (0.2-1.3); Blood Urea Nitrogen 10 mg/dL (9-20); Calcium 9.2 mg/dL (8.4-10.2); Carbon Dioxide 34 mmol/L (22-30); Chloride 94 mmol/L (98-107); Estimated CRCL calculation 107 ml/min; Estimated Glomerular Filt Rate > 60; Glucose 107 mg/dL (65-110); Potassium 3.8 mmol/L (3.4-5.0); Sodium 132 mmol/L (137-145); Total Protein 6.7 g/dL (6.3-8.2)
[2025-01-09 06:51] LABS: Add Urine Microscopic? YES; Appearance Urine Turbid (Clear); Glucose Urine UA Negative (Negative); Leukocyte Esterase Ur Negative LEU/UL (Negative); Nitrate Urine Negative (Negative); Non Pathogenic Casts 0-2; Specific Grav Ur 1.015 (1.001-1.035)
--- NOTE | 2025-01-09 09:17 | PCCCNOTE ---
Called to ER to discuss possible options regarding SNF facility. Pt unhappy with care regarding medication administration. Pt states he does not get his percocet when needed. I explained that pain meds can only be given as ordered and not more frequently. I also explained that this would be the same at any facility. I spoke with pt mother and she indicated that he was not happy even at [facility]. I spoke with pt and indicated that he would need to be able to walk independently before he could go home. Spoke with Dr Roa and asked to make sure PT/OT and O2 support order if pt going back d/t no acute medical issue.
[2025-01-09] MEDS: BENZONATATE 100 MG CAPSULE PO (09:24)
[2025-01-09] MEDS: ACETAMINOPHEN 500 MG TABLET 1000 MG PO (09:24)
== END 2025-01-09 10:15 ==
PROVIDERS: Emergency Provider Emergency Medicine; PCP Emergency Medicine
DX: I25.5 Ischemic cardiomyopathy; I34.0 Nonrheumatic mitral (valve) insufficiency; I25.2 Old myocardial infarction; I25.10 Atherosclerotic heart disease of native coronary artery without angina pectoris; I10 Essential (primary) hypertension; J43.9 Emphysema, unspecified; E78.00 Pure hypercholesterolemia, unspecified; E87.1 Hypo-osmolality and hyponatremia; K21.9 Gastro-esophageal reflux disease without esophagitis; M81.0 Age-related osteoporosis without current pathological fracture; F41.9 Anxiety disorder, unspecified; F32.A Depression, unspecified; Z99.81 Dependence on supplemental oxygen; Z95.1 Presence of aortocoronary bypass graft; Z95.5 Presence of coronary angioplasty implant and graft; Z87.01 Personal history of pneumonia (recurrent); Z87.891 Personal history of nicotine dependence; Z98.49 Cataract extraction status, unspecified eye; Z79.899 Other long term (current) drug therapy; Z79.82 Long term (current) use of aspirin; R00.0 Tachycardia, unspecified
CPT/HCPCS: 36415; 71045; 80053; 81001; 85025; 93005; 94640; 99284; A9270

== ENCOUNTER 2025-01-10 23:18 | Emergency (ER) | payer OTHER, SELFPAY ==
--- NOTE | ~2025-01-10 | XR_ITS ---
EXAMINATION: XR chest 1V portable DATE: 01/11/2025 00:21 INDICATION: Recent coronary artery bypass grafting present with chest pain, shortness of breath and t achycardia TECHNIQUE: frontal view of the chest was obtained. COMPARISON: Chest radiograph dated 01/09/[address] dated 01/11/2025 FINDINGS: Asymmetric lower lung predominant diffuse hazy opacity throughout the left lung with partial obscurat ion of the left hemidiaphragm consistent with small left pleural effusion and associated compressive atelectasis which is better appreciated on subsequent chest CT. Right lung is clear. No pulmonary perez ma, pneumothorax or right-sided pleural effusion. Heart size is normal. Median sternotomy wires, osti al markers and mediastinal surgical clips consistent with prior coronary artery bypass grafting. Mitr al valve repair. Coronary artery stenting. IMPRESSION: 1. Small left pleural effusion with associated compressive atelectasis in the left lower lung. Reviewed, dictated and finalized at location A. IMPRESSION: 1. Small left pleural effusion with associated compressive atelectasis in the l eft lower lung.
--- NOTE | ~2025-01-10 | CT_ITS ---
EXAMINATION: CTA chest PE protocol DATE: 01/11/2025 06:29 INDICATION: Recent coronary artery bypass grafting presenting with chest pain, shortness of breath an d tachycardia. TECHNIQUE: Computed tomography (CT) pulmonary angiogram of the chest was performed with 100 mL Omnipa que-350 intravenous contrast. Additional 3D reconstructions utilizing coronal maximum intensity proje ction (MIP) were performed. Automated exposure control and iterative reconstruction technique were em ployed. The dose-length product was 457.01 mGy-cm. COMPARISON: 10/29/2024 FINDINGS: Diagnostic quality study demonstrating no pulmonary embolism. Small left pleural effusion with mild d ependent atelectasis in the left lower lobe. Additional mild discoid atelectasis in the right lower a nd middle lobes. No pneumonia, pulmonary edema, right pleural effusion or pneumothorax. Heart size no rmal. Atherosclerotic coronary artery calcific location. Median sternotomy wires and mediastinal surg ical clips are seen, likely from prior coronary artery bypass grafting. There is also likely coronary artery stenting. Mitral valve repair. Thoracic aorta normal caliber with no dissection. No pathologi jose l enlarged thoracic lymphadenopathy. Upper abdomen is unremarkable. Mild thoracic spondylosis wit h chronic mild anterior wedging of a few mid and lower thoracic vertebral bodies. IMPRESSION: 1. No pulmonary embolism. 2. Small left pleural effusion with mild dependent compressive atelectasis in the left lower lobe. 3. Moderate emphysema. Reviewed, dictated and finalized at location A. IMPRESSION: 1. No pulmonary embolism. 2. Small left pleural effusion with mild dependent compressive atelectasis in t he left lower lobe. 3. Moderate emphysema.
[2025-01-10 23:32] VITALS: BP 133/93; PULSE 118; RESP 31; TEMP 36.8; O2SAT 97
[2025-01-10 23:41] VITALS: O2SAT 96
--- NOTE | 2025-01-10 23:41 | ECG_ITS ---
Test Date: 2025-01-10 23:47:03 Measurements Intervals [place] Rate: 116 P: 65 [place]: 169 QRS: 79 QRSD: 83 T: 69 QT: 318 QTc: 442 Interpretive Statements SINUS TACHYCARDIA WITH ATRIAL PREMATURE COMPLEX LOW QRS VOLTAGE IN PRECORDIAL LEADS BORDERLINE ST-T WAVE ABNORMALITY- INFERIOR LEADS BORDERLINE ECG Compared to ECG 01/09/2025 06:13:02 Low QRS voltage now present Electronically Signed On 01-11-2025 08:17:58 CDT by Zion Freedman D.O.
[2025-01-10 23:45] VITALS: BP 126/86; PULSE 115; RESP 26; O2SAT 94
[2025-01-10 23:49] LABS: Hematocrit 29.8 % (42.0-52.0); Hemoglobin 9.6 g/dL (14.0-18.0); Immature Granulocyte Percent A 0.6 % (0-0.5); Lymphocytes Absolute Auto 1.80 K/mm3 (0.9-3.2); Mean Corpuscular HGB Conc 32.2 g/dl (32-36); Mean Corpuscular Hemoglobin 32.4 pg (26-34); Mean Corpuscular Volume 100.7 fl (80-100); Nucleated Red Blood Cells Absolute Auto 0.000 K/mm3 (0.0-0.012); Nucleated Red Blood Cells Perc 0.0 % (0.0-0.2); Platelet Count Result 273 k/mm3 (150-375); Red Blood Count 2.96 M/mm3 (4.6-6.20); White Blood Count 8.6 K/mm3 (4.5-10.0)
[2025-01-11] VITALS (13 sets, daily range): BP systolic 126–153; BP diastolic 74–92; PULSE 109–118; RESP 17–28; O2SAT 94–100
[2025-01-11 00:04] LABS: INR 1.0; Prothrombin Time 13.8 Seconds (11.1-14.7)
[2025-01-11 00:05] LABS: Partial Thromboplastin Time 35.6 Seconds (22.3-36.8)
[2025-01-11 00:21] LABS: Alanine Aminotransferase 30 U/L (6-50); Albumin Level 3.7 g/dL (3.5-5.1); Alkaline Phosphatase 88 U/L (38-126); Anion Gap 5 mmol/L (4-12); Aspartate Amino Transferase 47 U/L (17-59); Bilirubin,Total 0.5 mg/dL (0.2-1.3); Blood Urea Nitrogen 8 mg/dL (9-20); Calcium 9.1 mg/dL (8.4-10.2); Carbon Dioxide 28 mmol/L (22-30); Chloride 100 mmol/L (98-107); Estimated CRCL calculation 125 ml/min; Estimated Glomerular Filt Rate > 60; Glucose 109 mg/dL (65-110); Lipase 131 U/L (23-300); Potassium 3.9 mmol/L (3.4-5.0); Sodium 133 mmol/L (137-145); Total Protein 6.7 g/dL (6.3-8.2)
--- OUTSIDE RECORDS SUMMARY | 2025-01-11 00:21 | XMS_ITS | Clinical Summary ---
Author Organization [facility] Address [address] [facility], [place] [address] Phone Care Team Providers Care Armored Service Technician Name Role Phone Ivette Barba APRN, DIRECTOR OF PERSONNEL Primary Care Pro vider Allergies No known active allergies Medications buPROPion, Smoking Deter, (ZYBAN) 150 MG TABLET SR 12 HR Take 150 mg by mouth 2 times daily. Active diazePAM (VALIUM) 5 MG Tablet Take 5 mg by mouth every 8 hours as needed. Active famotidine (PEPCID) 20 MG Tablet Take 20 mg by mouth 2 times daily. Active [place]-3 Fatty Acids (FISH OIL PO) Take by [...] Comments Blood Pressure 120/70 06/27/2021 1:33 PM HAND GLUER AND SLICER Pulse 66 06/27/2021 1:33 PM HAND GLUER AND SLICER Temperature 36.6 C (97.9 F) 06/27/2021 1:33 PM HAND GLUER AND SLICER Respiratory Rate 16 06/27/2021 1:33 PM HAND GLUER AND SLICER Oxygen Saturation 97% 06/27/2021 1:33 PM HAND GLUER AND SLICER Inhaled Oxygen Concentration - - Weight 78.1 kg (172 lb 1.6 oz) 06/27/2021 1:33 P M HAND GLUER AND SLICER Height 180.3 cm (5' 11) 06/27/2021 1:33 PM HAND GLUER AND SLICER Body Mass Index 24 06/27/2021 1:33 PM HAND GLUER AND SLICER Plan of Treatment Health Maintenance Due Date [...] age to complete this topic Insurance MEDICAID [place] Care Teams Armored Service Technician Relationship Specialty Start Date End Date Ivette Barba, LAY OUT MAKER, DIRECTOR OF PERSONNEL [address] [place], [place] [id number] PCP - General Certified Nurse Practitioner 06/09/21
--- OUTSIDE RECORDS SUMMARY | 2025-01-11 00:21 | XMS_ITS | Clinical Summary ---
Author Organization [facility] [employer] Address [address] [facility] [place] [address] Care Team Providers Care Inspector Outside Steam Distribution Name Role Phone Ivette Barba APRN-COBOL DEVELOPER Primary Care Provider Source Comments [facility],non-owned Affiliates and Associated Physician Practices is amultiple site organization consisting of ambulatory clinics and hospital sitesin [place], [place], [place] and [place]. This disclosure is being madepursuant to the Care Everywhere program and may not contain all information available regarding this patient. 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
[2025-01-11 00:36] LABS: Troponin I 0.127 ng/mL (0.000-0.034)
--- NOTE | 2025-01-11 00:58 | ED.SOB ---
HPI - SOB/Dyspnea General Chief Complaint: Shortness of Breath/Dyspnea <Kaci Moreno MD - Last Filed: 01/11/25 07:22> Stated Complaint: SOB, RECENT OPEN HEART SURGERY <Kaci Moreno MD - Last Filed: 01/11/25 07:22> Time Seen by Provider: 01/10/25 23:56 <Kaci Moreno MD - Last Filed: 01/11/25 07:22> History of Present Illness HPI Narrative: Patient presents here reporting he is having chest pain and shortness of breath, had recent CABG, he tells me has been ongoing for days, but the real reason he called ambulance is because he does not want to be at the care home. He came here yesterday for the same and, symptoms are not different from yesterday, he got sent back and he is very upset about it. <Kaci Moreno MD - Last Filed: 01/11/25 07:22> Related Data Home Medications: Home Medications ?Medication ?Instructions ?Recorded ?Confirmed ?Last Taken ?Type trazodone 100 mg tablet 100 mg PO HS 11/10/22 12/18/24 12/12/24 21:00 History 100 mg calcium 100 mg capsule 100 mg PO DAILY 06/19/23 12/18/24 12/12/24 17:00 History 100 mg multivitamin (Daily Multi-Vitamin 1 tablet PO DAILY 03/13/24 12/18/24 12/12/24 17:00 History tablet) 1 tablet aripiprazole 2 mg tablet 2 mg PO DAILY 09/08/24 12/18/24 12/12/24 17:00 History 2 mg vitamin B complex-folic acid 0.4 1 tablet PO DAILY 09/08/24 12/18/24 12/12/24 17:00 History mg tablet (B Complex 1 (with folic 1 tablet acid)) albuterol sulfate 90 mcg/actuation 2 puff inhalation Q6H PRN 12/13/24 12/18/24 12/13/24 09:00 History aerosol inhaler shortness of breath or wheezing 3 puff cholecalciferol (vitamin D3) 125 5,000 unit PO DAILY 12/13/24 12/18/24 12/12/24 17:00 History mcg (5,000 unit) capsule 5,000 unit <Kaci Moreno MD - Last Filed: 01/11/25 07:22> Allergies/Adverse Reactions: Allergies Allergy/AdvReac Type Severity Reaction Status Date / Time No Known Allergies Allergy Verified 12/18/24 17:16 <Kaci Moreno MD - Last Filed: 01/11/25 07:22> Review of Systems Review of Systems: All systems reviewed & are unremarkable except as noted in HPI and below <Lebron Roa MD - Last Filed: 01/11/25 17:06> [facility] Past Medical History Medical History: Medical History Ischemic cardiomyopathy EF is low as 30 to 35% in June 2023; improved to 60 to 65% on echo obtained in August 2023. Mitral valve regurgitation COPD with emphysema Coronary artery disease Non-STEMI (non-ST elevated myocardial infarction) Pneumonia Hypertension Chronic hyponatremia Thoracic compression fracture Gastroesophageal reflux disease Osteoporosis Heavy alcohol use Anxiety and depression has previously undergone ECT treatments Hypercholesteremia Former smoker <Kaci Moreno MD - Last Filed: 01/11/25 07:22> Surgical History Surgical History: Surgical History History of cataract extraction History of coronary artery stent placement (06/2023) stents to the LM into LAD and proximal to mid LAD History of tonsillectomy <Kaci Moreno MD - Last Filed: 01/11/25 07:22> Family History Family History: Family History Father Aneurysm Grandparent Black lung <Kaci Moreno MD - Last Filed: 01/11/25 07:22> Social History Social History: Social History Social History: Surrogate medical decision maker: Valeriano Laguna, sibling. Code status: Modified code, no intubation. Smoking packs per day: 1.5 Smoking cigarettes per day: 30.0 Years smoked: 42 Smoking pack-years: 63.00 Smoking status: Former smoker Tobacco type: cigarettes Second hand tobacco smoke exposure: No Smoking end date: 06/11/19 Alcohol intake: current Drinks per week: 6 Alcohol use details: wine Substance use: current Substance use type: marijuana Last use: Sunday Do You Feel Safe in your Home?: Yes Lack of Transportation: No Lack of Food: Never True Current Housing: I Have Housing Concerned About Future Housing: No Difficulty Paying Gas/Electric Bills: No Difficulty Paying for Meds: No Currently Unemployed: No Education: Master's Degree or Higher Difficulty w/ Childcare or Family Care: No Living arrangements: alone Additional living arrangements comments: Lives alone in [place]. 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 Spiritual care concerns: No <Kaci Moreno MD - Last Filed: 01/11/25 07:22> Exam Narrative: APPEARANCE: Well appearing, no pain, no distress, well-nourished. HEAD: normocephalic, atraumatic. EYES: PERRLA/EOMI, conjunctivae clear. NOSE: Normal no drainage EARS:TMS clear with good light reflex. THROAT: Pharynx clear, no exudate. NECK: Supple. No adenopathy, no masses. RESPIRATORY: Airway patent, respirations nonlabored. Clear to auscultation bilaterally, no rales, rhonchi, wheezing. CARDIOVASCULAR: Regular rate and rhythm without murmurs rubs or gallops. ABDOMINAL: Soft, nontender, nondistended, normal bowel sounds MUSCULOSKELETAL: Moves all extremities. Strength/ROM intact, No edema, No calf tenderness. NEURO: Alert. Cranial nerves II through XII intact. SKIN: Warm, dry. Normal Color <Lebron Roa MD - Last Filed: 01/11/25 17:06> Course Course Emergency Course: Patient care was signed out to me by the overnight physician with CTA pending. Patient was complaining of permit chest pain. Patient is currently afebrile with no leukocytosis and hemoglobin of 9.6 which is similar to his baseline. INR is 1.0. Patient did have elevated troponins that were plateaued. Overnight physician did discuss this with [facility] Cardiology and they felt the patient was cleared from a cardiology standpoint. Patient was negative influenza RSV and for COVID. CTA was negative for pulmonary embolism. Patient is dissatisfied with his current care facility but he was evaluated emergency department yesterday and had a long discussion with care coordination and there are no other additional options for placement for him at this time due to insurance and financial constraints. Patient will be discharged back to his care facility. <Lebron Roa MD - Last Filed: 01/11/25 17:06> Vital Signs Vital signs: Vital Signs Temperature 98.3 F 01/10/25 23:32 Pulse Rate 118 H 01/10/25 23:32 Respiratory Rate 31 H 01/10/25 23:32 Blood Pressure 133/93 H 01/10/25 23:32 Pulse Oximetry 97 01/10/25 23:32 Oxygen Delivery Nasal Cannula 01/10/25 23:32 Oxygen Flow Rate 3 01/10/25 23:32 Temperature 98.3 F 01/10/25 23:32 Pulse Rate 118 H 01/11/25 08:18 Respiratory Rate 26 H 01/11/25 08:18 Blood Pressure 127/84 01/11/25 08:18 Pulse Oximetry 100 01/11/25 08:18 Oxygen Delivery Nasal Cannula 01/10/25 23:41 Oxygen Flow Rate 2 01/10/25 23:41 <Kaci Moreno MD - Last Filed: 01/11/25 07:22> Vital Signs Temperature 98.3 F 01/10/25 23:32 Pulse Rate 118 H 01/10/25 23:32 Respiratory Rate 31 H 01/10/25 23:32 Blood Pressure 133/93 H 01/10/25 23:32 Pulse Oximetry 97 01/10/25 23:32 Oxygen Delivery Nasal Cannula 01/10/25 23:32 Oxygen Flow Rate 3 01/10/25 23:32 Temperature 98.3 F 01/10/25 23:32 Pulse Rate 118 H 01/11/25 08:18 Respiratory Rate 26 H 01/11/25 08:18 Blood Pressure 127/84 01/11/25 08:18 Pulse Oximetry 100 01/11/25 08:18 Oxygen Delivery Nasal Cannula 01/10/25 23:41 Oxygen Flow Rate 2 01/10/25 23:41 <Lebron Roa MD - Last Filed: 01/11/25 17:06> MDM - SOB/Dyspnea MDM Narrative Medical decision making narrative: Patient presents here reporting he is having chest pain and shortness of breath, had recent CABG, he tells me has been ongoing for days, but the real reason he called ambulance is because he does not want to be at the care home. He came here yesterday for the same and, symptoms are not different from yesterday, he got sent back and he is very upset about it. He is resting comfortably in no distress, he was on 2 L oxygen baseline is currently 98%, heart rate slightly elevated at 109. EKG obtained on my independent interpretation does not show any signs ischemia or arrhythmia. He does have an elevated troponin, however does seem in line with his CABG done several days ago, but I did call [facility], cardiology and spoke with Dr. Childress; he felt that this elevation of troponin was appropriate given his recent surgery. When I discussed with patient I did not have any reason to hold him in the emergency room, he got very upset, stating that he will not go back to the care home. He is demanding to go to [facility]. He is still slightly persistently tachypneic and tachycardic though slightly improved after the fluids, so I will obtain CT PE to rule out PE. Signed out pending imaging. <Kaci Moreno MD - Last Filed: 01/11/25 07:22> Lab Data Result diagrams: 01/10/25 23:44 01/10/25 23:44 <Kaci Moreno MD - Last Filed: 01/11/25 07:22> Labs: Lab Results 01/10/25 01/11/25 01/11/25 Range/Units 23:44 02:25 05:54 WBC 8.6 (4.5-10.0) K/mm3 RBC 2.96 L (4.6-6.20) M/mm3 Hgb 9.6 L (14.0-18.0) g/dL Hct 29.8 L (42.0-52.0) % MCV 100.7 H (80-100) fl MCH 32.4 (26-34) pg MCHC 32.2 (32-36) g/dl RDW 15.1 H (11.5-14.5) % Plt Count 273 (150-375) k/mm3 MPV 8.7 (7.4-10.4) fl Immature Gran % (Auto) 0.6 H (0-0.5) % Neut % (Auto) 66.1 (45.5-73.1) % Lymph % (Auto) 21.0 (18.3-44.2) % Sampson % (Auto) 9.2 H (2.6-8.5) % Eos % (Auto) 2.6 (0-4.4) % Baso % (Auto) 0.5 (0.2-1.2) % Lymph # (Auto) 1.80 (0.9-3.2) K/mm3 Sampson # (Auto) 0.8 H (0.1-0.6) K/mm3 Eos # (Auto) 0.2 (0-0.3) K/mm3 Baso # (Auto) 0.0 (0.0-0.1) K/mm3 Abs Immat Gran (auto) 0.05 H (0.00-0.031) K/mm3 Absolute Neuts (auto) 5.7 (1.3-6.7) K/mm3 Absolute Nucleated RBC 0.000 (0.0-0.012) K/mm3 Nucleated RBC % 0.0 (0.0-0.2) % PT 13.8 (11.1-14.7) Seconds INR 1.0 APTT 35.6 (22.3-36.8) Seconds Sodium 133 L (137-145) mmol/L Potassium 3.9 (3.4-5.0) mmol/L Chloride 100 (98-107) mmol/L Carbon Dioxide 28 (22-30) mmol/L Anion Gap 5 (4-12) mmol/L BUN 8 L (9-20) mg/dL Creatinine 0.55 L (0.7-1.3) mg/dL Estim Creat Clear Calc 125 ml/min Estimated GFR > 60 (59 - ) Glucose 109 (65-110) mg/dL Calcium 9.1 (8.4-10.2) mg/dL Total Bilirubin 0.5 (0.2-1.3) mg/dL AST 47 (17-59) U/L ALT 30 (6-50) U/L Alkaline Phosphatase 88 (38-126) U/L Troponin I 0.127 H* 0.138 H* 0.134 H* (0.000-0.034) ng/mL Total Protein 6.7 (6.3-8.2) g/dL Albumin 3.7 (3.5-5.1) g/dL Lipase 131 (23-300) U/L Influenza A (RT-PCR) Negative (Negative) Influenza B (RT-PCR) Negative (Negative) RSV (RT-PCR) Negative (Negative) SARS-CoV-2 RNA (RT-PCR) Negative (Negative) <Kaci Moreno MD - Last Filed: 01/11/25 07:22> Lab Results 01/10/25 01/11/25 01/11/25 Range/Units 23:44 02:25 05:54 WBC 8.6 (4.5-10.0) K/mm3 RBC 2.96 L (4.6-6.20) M/mm3 Hgb 9.6 L (14.0-18.0) g/dL Hct 29.8 L (42.0-52.0) % MCV 100.7 H (80-100) fl MCH 32.4 (26-34) pg MCHC 32.2 (32-36) g/dl RDW 15.1 H (11.5-14.5) % Plt Count 273 (150-375) k/mm3 MPV 8.7 (7.4-10.4) fl Immature Gran % (Auto) 0.6 H (0-0.5) % Neut % (Auto) 66.1 (45.5-73.1) % Lymph % (Auto) 21.0 (18.3-44.2) % Sampson % (Auto) 9.2 H (2.6-8.5) % Eos % (Auto) 2.6 (0-4.4) % Baso % (Auto) 0.5 (0.2-1.2) % Lymph # (Auto) 1.80 (0.9-3.2) K/mm3 Sampson # (Auto) 0.8 H (0.1-0.6) K/mm3 Eos # (Auto) 0.2 (0-0.3) K/mm3 Baso # (Auto) 0.0 (0.0-0.1) K/mm3 Abs Immat Gran (auto) 0.05 H (0.00-0.031) K/mm3 Absolute Neuts (auto) 5.7 (1.3-6.7) K/mm3 Absolute Nucleated RBC 0.000 (0.0-0.012) K/mm3 Nucleated RBC % 0.0 (0.0-0.2) % PT 13.8 (11.1-14.7) Seconds INR 1.0 APTT 35.6 (22.3-36.8) Seconds Sodium 133 L (137-145) mmol/L Potassium 3.9 (3.4-5.0) mmol/L Chloride 100 (98-107) mmol/L Carbon Dioxide 28 (22-30) mmol/L Anion Gap 5 (4-12) mmol/L BUN 8 L (9-20) mg/dL Creatinine 0.55 L (0.7-1.3) mg/dL Estim Creat Clear Calc 125 ml/min Estimated GFR > 60 (59 - ) Glucose 109 (65-110) mg/dL Calcium 9.1 (8.4-10.2) mg/dL Total Bilirubin 0.5 (0.2-1.3) mg/dL AST 47 (17-59) U/L ALT 30 (6-50) U/L Alkaline Phosphatase 88 (38-126) U/L Troponin I 0.127 H* 0.138 H* 0.134 H* (0.000-0.034) ng/mL Total Protein 6.7 (6.3-8.2) g/dL Albumin 3.7 (3.5-5.1) g/dL Lipase 131 (23-300) U/L Influenza A (RT-PCR) Negative (Negative) Influenza B (RT-PCR) Negative (Negative) RSV (RT-PCR) Negative (Negative) SARS-CoV-2 RNA (RT-PCR) Negative (Negative) <Lebron Roa MD - Last Filed: 01/11/25 17:06> Discharge Plan Discharge Clinical Impression: Chest pain <Kaci Moreno MD - Last Filed: 01/11/25 07:22> Patient Disposition: NH Fdc/Asst Living <Kaci Moreno MD - Last Filed: 01/11/25 07:22> Condition: Stable <Kaci Moreno MD - Last Filed: 01/11/25 07:22> Instructions: Antibiotic Form <Kaci Moreno MD - Last Filed: 01/11/25 07:22> Additional Instructions: Continue to have close follow-up with Cardiology. <Kaci Moreno MD - Last Filed: 01/11/25 07:22> Patient Language: German <Kaci Moreno MD - Last Filed: 01/11/25 07:22> Prescriptions: No Action trazodone 100 mg tablet 100 mg PO HS vitamin B complex-folic acid [B Complex 1 (with folic acid)] 0.4 mg tablet 1 tablet PO DAILY alendronate 70 mg tablet 70 mg PO WEEKLY Qty: 12 2RF Rx Instructions: Takes on Sunday omeprazole 20 mg capsule,delayed release(DR/EC) 20 mg PO DAILY Qty: 90 2RF aripiprazole 2 mg tablet 2 mg PO DAILY losartan 25 mg tablet 12.5 mg PO DAILY Qty: 90 3RF furosemide 20 mg tablet 20 mg PO QAM Qty: 30 5RF multivitamin [Daily Multi-Vitamin] Tablet 1 tablet PO DAILY aspirin 81 mg tablet,delayed release (DR/EC) 81 mg PO DAILY@0800 Qty: 90 3RF cholecalciferol (vitamin D3) 125 mcg (5,000 unit) capsule 5,000 unit PO DAILY albuterol sulfate 90 mcg/actuation HFA aerosol inhaler 2 puff INHALATION Q6H PRN (Reason: shortness of breath or wheezing) benzonatate 100 mg Capsule 100 mg PO TID PRN (Reason: Cough) Qty: 30 0RF guaifenesin [Mucus Relief ER] 600 mg Tablet Extended Release 12hr 600 mg PO Q12HR Qty: 30 0RF calcium 100 mg Capsule 100 mg PO DAILY Trelegy Ellipta 100-62.5-25 mcg blister with device 1 inh inhalation QAM Qty: 60 11RF Rx Instructions: rinse and spit albuterol sulfate 1.25 mg/3 mL solution for nebulization 1.25 mg inhalation Q6H PRN (Reason: shortness of breath or wheezing) Qty: 360 2RF Brilinta 90 mg tablet 90 mg PO Q12HR Qty: 180 2RF Ohtuvayre 3 mg/2.5 mL suspension for nebulization 2.5 ml inhalation QAM AND QPM Qty: 150 5RF Rx Instructions: This will replace Daliresp (roflumilast) carvedilol 6.25 mg tablet See Rx Instructions .ROUTE .COMPLEX Qty: 60 5RF Dose Instruction: TAKE 1 TABLET BY MOUTH EVERY 12 HOURS Rx Instructions: TAKE 1 TABLET BY MOUTH EVERY 12 HOURS atorvastatin 80 mg tablet See Rx Instructions .ROUTE .COMPLEX Qty: 30 0RF Dose Instruction: TAKE 1 TABLET BY MOUTH AT BEDTIME Rx Instructions: TAKE 1 TABLET BY MOUTH AT BEDTIME <Kaci Moreno MD - Last Filed: 01/11/25 07:22> Follow-up/Referrals: Dieudonne Posada MD [Primary Care Provider] - <Kaci Moreno MD - Last Filed: 01/11/25 07:22>
[2025-01-11] MEDS: LACTATED RINGERS 1,000 ML 999 ML IV CONT (01:18)
--- NOTE | 2025-01-11 02:11 | ECG_ITS ---
Test Date: 2025-01-11 02:16:11 Measurements Intervals [place] Rate: 113 P: 66 [place]: 176 QRS: 83 QRSD: 86 T: 68 QT: 307 QTc: 421 Interpretive Statements SINUS TACHYCARDIA LOW QRS VOLTAGE IN PRECORDIAL LEADS BORDERLINE ST-T WAVE ABNORMALITY- INFERIOR LEADS BASELINE ARTIFACT- I, II, III, AVL, V3 ABNORMAL ECG Compared to ECG 01/10/2025 23:47:03 NO SIGNIFICANT CHANGE Electronically Signed On 01-11-2025 08:19:34 CDT by Zion Freedman D.O.
[2025-01-11 02:59] LABS: Troponin I 0.138 ng/mL (0.000-0.034)
[2025-01-11 03:06] LABS: Influenza A QL RT-PCR Negative (Negative); Influenza B QL RT-PCR Negative (Negative); RSV RNA, RT-PCR Negative (Negative); SARS-CoV-2 RNA PCR Negative (Negative)
--- NOTE | 2025-01-11 05:40 | ECG_ITS ---
Test Date: 2025-01-11 05:50:44 Measurements Intervals [place] Rate: 113 P: 61 [place]: 162 QRS: 80 QRSD: 97 T: 64 QT: 326 QTc: 448 Interpretive Statements SINUS TACHYCARDIA NONSPECIFIC T-WAVE ABNORMALITY- INF/HIGH LAT LEADS BASELINE ARTIFACT- I, AVL, V1 ABNORMAL ECG Compared to ECG 01/11/2025 02:16:11 NO SIGNIFICANT CHANGE Electronically Signed On 01-11-2025 08:22:09 CDT by Zion Freedman D.O.
[2025-01-11] MEDS: oxyCODONE/ACETAMINOPHEN (*CRX) 5-325 MG TABLET 1 TABLET PO (06:06)
[2025-01-11] MEDS: LIDOCAINE 5% PATCH 1 PATCH TRANSDERM (06:07)
[2025-01-11 06:34] LABS: Troponin I 0.134 ng/mL (0.000-0.034)
== END 2025-01-11 09:05 ==
PROVIDERS: Emergency Provider Emergency Medicine; PCP Emergency Medicine
DX: R07.9 Chest pain, unspecified (principal); Z20.822 Contact with and (suspected) exposure to COVID-19; I25.5 Ischemic cardiomyopathy; I34.0 Nonrheumatic mitral (valve) insufficiency; I25.2 Old myocardial infarction; I25.10 Atherosclerotic heart disease of native coronary artery without angina pectoris; I10 Essential (primary) hypertension; J43.9 Emphysema, unspecified; E78.00 Pure hypercholesterolemia, unspecified; E87.1 Hypo-osmolality and hyponatremia; K21.9 Gastro-esophageal reflux disease without esophagitis; M81.0 Age-related osteoporosis without current pathological fracture; F41.9 Anxiety disorder, unspecified; F32.A Depression, unspecified; Z95.5 Presence of coronary angioplasty implant and graft; Z95.1 Presence of aortocoronary bypass graft; Z87.01 Personal history of pneumonia (recurrent); Z87.891 Personal history of nicotine dependence; Z98.49 Cataract extraction status, unspecified eye; R00.0 Tachycardia, unspecified; I49.1 Atrial premature depolarization; R94.31 Abnormal electrocardiogram [ECG] [EKG]
CPT/HCPCS: 36415; 71045; 71275; 80053; 83690; 84484; 85025; 85610; 85730; 87637; 93005; 96360; 99284; A9270; J7120; Q9967

== ENCOUNTER 2025-02-11 12:40 | Outpatient (CLI) | payer OTHER, SELFPAY ==
[2025-02-11 12:45] VITALS: PULSE 90; O2SAT 95
[2025-02-11 12:50] VITALS: PULSE 100; O2SAT 88
[2025-02-11 12:55] VITALS: PULSE 95; O2SAT 91
[2025-02-11 13:10] VITALS: PULSE 95; O2SAT 94
--- NOTE | 2025-02-11 13:21 | HOMEO2EVAL ---
Evaluation was performed at [facility] Home Oxygen Evaluation RC: Home Oxygen (O2) Evaluation Start: 02/11/25 13:15 Freq: Status: Active Protocol: RPE Activity Type Activity Date Activity User E-sign Co-sign Detail Recorded Client Recorded Date Recorded By Document 02/11/25 12:45 PK [email or web address] 02/11/25 13:20 PK Document 02/11/25 12:50 PK [email or web address] 02/11/25 13:20 PK Document 02/11/25 12:55 [facility] [email or web address] 02/11/25 13:20 [facility] Document 02/11/25 13:10 [facility] [email or web address] 02/11/25 13:20 [facility] 02/11/25 02/11/25 02/11/25 12:45 12:50 12:55 Home O2 Evaluation [Oxygen] -Test Phase Resting Exercise Exercise -Oxygen Delivery Room Air Room Air Nasal Cannula -Oxygen Flow Rate (L/min) 1 [Pulse Oximetry] -Pulse Oximetry (90-100 %) 95 88 L 91 [Pulse Rate] -Pulse Rate (60-100 beats/min) 90 100 95 [Evaluation] -Activity Tolerance Good [Charges] -Evaluation Charges O2 Evaluation by Pulmonary 02/11/25 13:10 Home O2 Evaluation [Oxygen] -Test Phase Resting -Oxygen Delivery Room Air -Oxygen Flow Rate (L/min) [Pulse Oximetry] -Pulse Oximetry (90-100 %) 94 [Pulse Rate] -Pulse Rate (60-100 beats/min) 95 [Evaluation] -Activity Tolerance [Charges] -Evaluation Charges
--- OUTSIDE RECORDS SUMMARY | 2025-02-11 13:49 | XMS_ITS | Clinical Summary ---
Author Organization [facility] Address [address] [facility] [place] [address] Phone Care Team Providers Care Box Blank Machine Feeder Name Role Phone Ivette Barba APRN, WAREHOUSE RECEIVER Primary Care Pro vider Allergies No known active allergies Medications buPROPion, Smoking Deter, (ZYBAN) 150 MG TABLET SR 12 HR Take 150 mg by mouth 2 times daily. Active diazePAM (VALIUM) 5 MG Tablet Take 5 mg by mouth every 8 hours as needed. Active famotidine (PEPCID) 20 MG Tablet Take 20 mg by mouth 2 times daily. Active [place]-3 Fatty Acids (FISH OIL PO) Take by [...] Comments Blood Pressure 120/70 06/27/2021 1:33 PM FRIT MAKER Pulse 66 06/27/2021 1:33 PM FRIT MAKER Temperature 36.6 C (97.9 F) 06/27/2021 1:33 PM FRIT MAKER Respiratory Rate 16 06/27/2021 1:33 PM FRIT MAKER Oxygen Saturation 97% 06/27/2021 1:33 PM FRIT MAKER Inhaled Oxygen Concentration - - Weight 78.1 kg (172 lb 1.6 oz) 06/27/2021 1:33 P M FRIT MAKER Height 180.3 cm (5' 11) 06/27/2021 1:33 PM FRIT MAKER Body Mass Index 24 06/27/2021 1:33 PM FRIT MAKER Plan of Treatment Health Maintenance Due [...] years 1-dose series) 2022 Influenza Immunization (#1) 2025 04/14/2019, 1 07/30/2017 SARS-COV-2 Immunization ( season) 2025 03/13/2022, 03/30/2021, 09/20/2020, Additional history exists Hepatitis [...] age to complete this topic Insurance MEDICAID [place] Care Teams Box Blank Machine Feeder Relationship Specialty Start Date End Date Ivette Barba, ASSISTANT PROFESSOR SURGICAL TECHNOLOGY, WAREHOUSE RECEIVER [address] [place], [place] [address] PCP - General Certified Nurse Practitioner 06/09/21
--- OUTSIDE RECORDS SUMMARY | 2025-02-11 13:49 | XMS_ITS | Clinical Summary ---
Author Organization [facility] [employer] Address [address] [place] [address] Care Team Providers Care Cycle Repairer Name Role Phone Ivette Barba APRN-FIRER KILN Primary Care Provider Source Comments [facility] [employer],non-owned Affiliates and Associated Physician Practices is amultiple site organization consisting of ambulatory clinics and hospital sitesin [place], [place], [place] and [place]. This disclosure is being madepursuant to the Care Everywhere program and may not contain all information available regarding this patient. 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
== END 2025-02-11 12:41 | disposition home or self-care (01) ==
PROVIDERS: PCP Emergency Medicine; Visit Provider Nurse Practitioner Family
DX: J43.9 Emphysema, unspecified (principal)
CPT/HCPCS: 94618

== ENCOUNTER 2025-02-26 14:17 | Emergency (ER) | payer OTHER, SELFPAY ==
--- OUTSIDE RECORDS SUMMARY | 2025-02-26 14:22 | XMS_ITS | Clinical Summary ---
Author Organization [facility] Address [address] [facility] [place] [address] Phone Care Team Providers Care Architectural Technician Name Role Phone Ivette Barba APRN, TUBE KNITTER Primary Care Pro vider Allergies No known active allergies Medications buPROPion, Smoking Deter, (ZYBAN) 150 MG TABLET SR 12 HR Take 150 mg by mouth 2 times daily. Active diazePAM (VALIUM) 5 MG Tablet Take 5 mg by mouth every 8 hours as needed. Active famotidine (PEPCID) 20 MG Tablet Take 20 mg by mouth 2 times daily. Active [place]-3 Fatty Acids (FISH OIL PO) Take by [...] Blood Pressure 120/70 06/27/2021 1:33 PM HAND FLESHER Pulse 66 06/27/2021 1:33 PM HAND FLESHER Temperature 36.6 C (97.9 F) 06/27/2021 1:33 PM HAND FLESHER Respiratory Rate 16 06/27/2021 1:33 PM HAND FLESHER Oxygen Saturation 97% 06/27/2021 1:33 PM HAND FLESHER Inhaled Oxygen Concentration - - Weight 78.1 kg (172 lb 1.6 oz) 06/27/2021 1:33 P M HAND FLESHER Height 180.3 cm (5' 11) 06/27/2021 1:33 PM HAND FLESHER Body Mass Index 24 06/27/2021 1:33 PM HAND FLESHER Plan of Treatment Health Maintenance Due Date [...] age to complete this topic Insurance MEDICAID [place] Care Teams Architectural Technician Relationship Specialty Start Date End Date Ivette Barba, GENERATION TECHNOLOGIST, TUBE KNITTER [address] [place], [place] [id number] PCP - General Certified Nurse Practitioner 06/09/21
--- OUTSIDE RECORDS SUMMARY | 2025-02-26 14:22 | XMS_ITS | Clinical Summary ---
Author Organization [facility] [employer] Address [address] [place] [address] Care Team Providers Care Service Tester Name Role Phone Ivette Barba APRN-TROUBLE LOCATER Primary Care Provider Source Comments [facility] [employer],non-owned Affiliates and Associated Physician Practices is amultiple site organization consisting of ambulatory clinics and hospital sitesin [place], [place], [place] and [place]. This disclosure is being madepursuant to the Care Everywhere program and may not contain all information available regarding this patient. Last updated 18.[employer] [facility] [employer] Allergies No known active allergies Medications * [...] on file Legal Sex Male 12:54 PM [employer] Gender Identity Not on file Sexual Orientation [...] 2012 ZOSTER VACCINE (1 of 2) 2012 DEPRESSION SCREENING 06/11/2024 COVID-19 VACCINE (1 - 2023-2 5 season) 2025 INFLUENZA VACCINE (#1) 2025 Respiratory Syncytial Virus [...] [facility] Care Teams Service Tester Relationship Specialty Start Date End Date Ivette Barba, SPECIAL DEPUTY SHERIFF-TROUBLE LOCATER [address] [place] [address] PCP - General 11/10/21
[2025-02-26 14:23] VITALS: BP 150/94; PULSE 97; RESP 14; TEMP 36.7; O2SAT 98
--- NOTE | 2025-02-26 14:27 | ECG_ITS ---
Test Date: 2025-02-26 15:58:44 Measurements Intervals [place] Rate: 99 P: 65 [place]: 178 QRS: 92 QRSD: 92 T: 81 QT: 343 QTc: 440 Interpretive Statements SINUS RHYTHM WITH OCCASIONAL VENTRICULAR PREMATURE COMPLEXES BORDERLINE RIGHT AXIS DEVIATION [QRS AXIS > 90] ABNORMAL ECG Compared to ECG 01/11/2025 05:50:44 Ventricular premature complex(es) now present Sinus tachycardia no longer present Electronically Signed On 02-26-2025 17:59:59 CDT by Cesario Alvarado M.D.
--- NOTE | 2025-02-26 14:28 | ED_ITS ---
HPI - Psych General Chief Complaint: Psychiatric Symptoms <Priti Melchor SENIOR DATA WAREHOUSE ARCHITECT - Last Filed: 02/26/25 19:13> Stated Complaint: SI <Priti Melchor APRN - Last Filed: 02/26/25 19:13> Time Seen by Provider: 02/26/25 14:17 <Priti Melchor APRN - Last Filed: 02/26/25 19:13> History of Present Illness HPI Narrative: Patient is a 64-year-old male who presents to the ER with suicidal ideation. He reports he had a plan to shoot himself and he owns a gun. Patient reports he started experiencing symptoms a couple of months ago, but they have gotten worse over the past 24 hours. He reports he went to his mom's house, who was worried about him, so she called EMS. Patient door sys a history of emphysema (stage IV), depression, alcoholism, cardiac bypass surgery. He reports he uses oxygen at night. Patient also reports he has been drinking approximately a quarts of red wine every night before bed. He endorses a history of psychiatric illness but reports ?nothing has helped in the past, including ECT. Patient denies any chest pain, shortness of breath, recent fevers, or increased wheezing. <Priti Melchor APRN - Last Filed: 02/26/25 19:13> Related Data Home Medications: Home Medications ?Medication ?Instructions ?Recorded ?Confirmed ?Last Taken ?Type multivitamin (Daily Multi-Vitamin 1 tablet PO DAILY 02/26/25 02/25/25 History tablet) albuterol sulfate 90 mcg/actuation 2 puff inhalation Q 4H PRN 01/13/25 02/26/25 02/25/25 History aerosol inhaler shortness of breath or wheez ing clopidogrel 75 mg tablet 75 mg PO DAILY 01/13/2502/0902/25/25 History fluticasone furoate 100 1 inh inhalation DAILY 01/1302/26/25 02/25/25 History mcg/actuation blister powder for inhalation methocarbamol 500 mg tablet 1,000 mg PO TID 01/13/25 0 02/26/25 02/25/25 History potassium chloride 20 mEq 20 meq PO DAILY 0802/25/25 History tablet,extended release (K-Tab) furosemide 20 mg tablet (Lasix) 20 mg PO DAILY 02/26/25 02/25/25 History cholecalciferol (vitamin D3) 125 125 mcg PO DAILY 02/0902/26/25 02/25/25 History mcg (5,000 unit) capsule fluticasone fur. 100 mcg-umeclid 1 inh inhalation KADEN Y 02/23/25 02/26/25 02/25/25 History 62.5 mcg-vilant 25 mcg inhalat.powder (Trelegy Ellipta) guaifenesin 600 mg tablet, 600 mg PO BID 02/23/2502/0902/25/25 History extended release 12 hr (Mucinex) isosorbide mononitrate 30 mg 30 mg PO DAILY 02/23/25 0 02/27/25 02/25/25 History tablet,extended release 24 hr albuterol sulfate 1.25 mg/3 mL 1.25 mg inhalation Q4-6 H PRN 02/24/25 02/26/25 02/25/25 History solution for nebulization shortness of breath or wheez ing calcium carbonate 600 mg PO DAILY 02/24/2502/25/25 History cholecalciferol (vitamin D3) 125 125 mcg PO DAILY 02/0902/26/25 02/25/25 History mcg (5,000 unit) capsule multivitamin with minerals 1 tablet PO DAILY 02/24/25 02/26/25 02/25/25 History (Hair,Skin and Nails tablet) vitamin B complex-folic acid 0.4 1 tablet PO DAILY 02/26/25 02/25/25 History mg tablet <Priti Melchor APRN - Last Filed: 02/26/25 19:13> Allergies/Adverse Reactions: Allergies Allergy/AdvReac Type Severity Reaction Status Date / Time No Known Allergies Allergy Verified 02/26/25 16:24 <Priti Melchor APRN - Last Filed: 02/26/25 19:13> Review of Systems 2 Review of Systems: All systems reviewed & are unremarkable except as noted in HPI and below <Priti Melchor APRN - Last Filed: 02/26/25 19:13> COUNT INCLUDES THE [facility] Past Medical History Medical History: Medical History Ischemic cardiomyopathy EF is low as 30 to 35% in June 2023; improved to 60 to 65% on echo obtained in August 2023. Mitral valve regurgitation COPD with emphysema Coronary artery disease Non-STEMI (non-ST elevated myocardial infarction) Pneumonia Hypertension Chronic hyponatremia Thoracic compression fracture Gastroesophageal reflux disease Osteoporosis Heavy alcohol use Anxiety and depression has previously undergone ECT treatments Hypercholesteremia Former smoker <Priti Melchor APRN - Last Filed: 02/26/25 19:13> Surgical History Surgical History: Surgical History History of mitral valve replacement S/P triple vessel bypass History of cataract extraction History of coronary artery stent placement (06/2023) stents to the LM into LAD and proximal to mid LAD History of tonsillectomy <Priti Melchor APRN - Last Filed: 02/26/25 19:13> Family History Family History: Family History Father Aneurysm Grandparent Black lung <Priti Melchor APRN - Last Filed: 02/26/25 19:13> Social History Social History: Social History Social History: Surrogate medical decision maker: Valeriano Laguna, sibling. Code status: Modified code, no intubation. Smoking packs per day: 1.5 Smoking cigarettes per day: 30.0 Years smoked: 42 Smoking pack-years: 63.00 Smoking status: Former smoker Tobacco type: cigarettes Second hand tobacco smoke exposure: No Smoking end date: 06/11/19 Alcohol intake: current Alcohol use details: not for the last 2 months Substance use: former Substance use type: does not use Last use: Sunday Do You Feel Safe in your Home?: Yes Lack of Transportation: No Lack of Food: Never True Current Housing: I Have Housing Concerned About Future Housing: No Difficulty Paying Gas/Electric Bills: No Difficulty Paying for Meds: No Currently Unemployed: No Education: Master's Degree or Higher Difficulty w/ Childcare or Family Care: No Living arrangements: alone Additional living arrangements comments: Lives alone in [place]. 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 Spiritual care concerns: No <Priti Melchor APRN - Last Filed: 02/26/25 19:13> Exam 2 Narrative: GENERAL:Ill appearing, well-nourished, non-toxic, in no acute distress. HEAD: Normocephalic, atraumatic. NECK: Supple. No adenopathy, no masses. RESPIRATORY: Airway patent, respirations nonlabored. Clear to auscultation bilaterally, no rales, rhonchi, wheezing. CARDIOVASCULAR: Regular rate and rhythm without murmurs, rubs, or gallops. Peripheral pulses 2+ and equal bilaterally. ABDOMINAL: Soft, nontender, nondistended, no hepatosplenomegaly. Normoactive BS. MUSCULOSKELETAL: Moves all extremities. Strength/ROM intact without gross deformities. SKIN: Warm, dry, pallor. No rashes. NEURO: A&O X3. Speech clear. Cranial nerves II-XII intact. No ataxic movements. PSYCHIATRIC: Tearful <Priti Melchor APRN - Last Filed: 02/26/25 19:13> Course Reevaluation(s) Reevaluation #1: Patient's morning meds were ordered and patient was provided some Ativan for anxiolysis. Patient did receive placement and transport and patient was well-appearing at time of transport. <Lebron Roa MD - Last Filed: 02/27/25 17:48> Vital Signs Vital signs: Vital Signs Temperature 98.0 F 02/26/25 14:23 Pulse Rate 97 02/26/25 14:23 Respiratory Rate 14 02/26/25 14:23 Blood Pressure 150/94 H 02/26/25 14:23 Pulse Oximetry 98 02/26/25 14:23 Oxygen Delivery Room Air 02/26/25 14:23 Temperature 98.7 F 02/27/25 15:27 Pulse Rate 100 02/27/25 15:27 Respiratory Rate 18 02/27/25 15:27 Blood Pressure 151/100 H 02/27/25 15:27 Pulse Oximetry 97 02/27/25 15:27 Oxygen Delivery Room Air 02/26/25 14:23 <Priti Melchor APRN - Last Filed: 02/26/25 19:13> Vital Signs Temperature 98.0 F 02/26/25 14:23 Pulse Rate 97 02/26/25 14:23 Respiratory Rate 14 02/26/25 14:23 Blood Pressure 150/94 H 02/26/25 14:23 Pulse Oximetry 98 02/26/25 14:23 Oxygen Delivery Room Air 02/26/25 14:23 Temperature 98.7 F 02/27/25 15:27 Pulse Rate 100 02/27/25 15:27 Respiratory Rate 18 02/27/25 15:27 Blood Pressure 151/100 H 02/27/25 15:27 Pulse Oximetry 97 02/27/25 15:27 Oxygen Delivery Room Air 02/26/25 14:23 <Aria Israel PA-C - Last Filed: 02/27/25 00:45> Vital Signs Temperature 98.0 F 02/26/25 14:23 Pulse Rate 97 02/26/25 14:23 Respiratory Rate 14 02/26/25 14:23 Blood Pressure 150/94 H 02/26/25 14:23 Pulse Oximetry 98 02/26/25 14:23 Oxygen Delivery Room Air 02/26/25 14:23 Temperature 98.7 F 02/27/25 15:27 Pulse Rate 100 02/27/25 15:27 Respiratory Rate 18 02/27/25 15:27 Blood Pressure 151/100 H 02/27/25 15:27 Pulse Oximetry 97 02/27/25 15:27 Oxygen Delivery Room Air 02/26/25 14:23 <Lebron Roa MD - Last Filed: 02/27/25 17:48> Vital Signs Temperature 98.0 F 02/26/25 14:23 Pulse Rate 97 02/26/25 14:23 Respiratory Rate 14 02/26/25 14:23 Blood Pressure 150/94 H 02/26/25 14:23 Pulse Oximetry 98 02/26/25 14:23 Oxygen Delivery Room Air 02/26/25 14:23 Temperature 98.7 F 02/27/25 15:27 Pulse Rate 100 02/27/25 15:27 Respiratory Rate 18 02/27/25 15:27 Blood Pressure 151/100 H 02/27/25 15:27 Pulse Oximetry 97 02/27/25 15:27 Oxygen Delivery Room Air 02/26/25 14:23 <Kaci Moreno MD - Last Filed: 02/27/25 19:02> MDM - Psych MDM Narrative Medical decision making narrative: Patient is a 64-year-old male who presents to the ER with suicidal ideation. He reports he had a plan to shoot himself and he owns a gun. Patient reports he started experiencing symptoms a couple of months ago, but they have gotten worse over the past 24 hours. He reports he went to his mom's house, who was worried about him, so she called EMS. Patient door sys a history of emphysema (stage IV), depression, alcoholism, cardiac bypass surgery. He reports he uses oxygen at night. Patient also reports he has been drinking approximately a quarts of red wine every night before bed. He endorses a history of psychiatric illness but reports ?nothing has helped in the past, including ECT. Patient denies any chest pain, shortness of breath, recent fevers, or increased wheezing. Labs Ordered: CBC, CMP, TSH, COVID/flu/RSV, ethanol, Tylenol level Imaging Ordered: None necessary Medications Ordered: None necessary Results: Patient's CBC indicates a RBC of 4.37, hemoglobin of 13.4, hematocrit of 39.7%. His chemistry indicates a sodium of 135, carbon dioxide of 31, BUN is 7, creatinine is 0.51. Patient's TSH was within normal limits. His urinalysis indicates 1+ protein, 2+ ketones, trace leukocytes, 3-5 rbcs. His UDS was positive for cannabinoids. Patient's alcohol level was negative. Diagnosis: Suicidal ideation Consults: Psychiatry (intake) 1630-patient is medically cleared for psychiatric intake evaluation. 1914- Care signed out to Aria Israel PA-C, pending psychiatric placement. <Priti Melchor APRN - Last Filed: 02/26/25 19:13> Patient is a 64-year-old male who presents to the ER with suicidal ideation. He reports he had a plan to shoot himself and he owns a gun. Patient reports he started experiencing symptoms a couple of months ago, but they have gotten worse over the past 24 hours. He reports he went to his mom's house, who was worried about him, so she called EMS. Patient door sys a history of emphysema (stage IV), depression, alcoholism, cardiac bypass surgery. He reports he uses oxygen at night. Patient also reports he has been drinking approximately a quarts of red wine every night before bed. He endorses a history of psychiatric illness but reports ?nothing has helped in the past, including ECT. Patient denies any chest pain, shortness of breath, recent fevers, or increased wheezing. Labs Ordered: CBC, CMP, TSH, COVID/flu/RSV, ethanol, Tylenol level Imaging Ordered: None necessary Medications Ordered: None necessary Results: Patient's CBC indicates a RBC of 4.37, hemoglobin of 13.4, hematocrit of 39.7%. His chemistry indicates a sodium of 135, carbon dioxide of 31, BUN is 7, creatinine is 0.51. Patient's TSH was within normal limits. His urinalysis indicates 1+ protein, 2+ ketones, trace leukocytes, 3-5 rbcs. His UDS was positive for cannabinoids. Patient's alcohol level was negative. Diagnosis: Suicidal ideation Consults: Psychiatry (intake) 163-patient is medically cleared for psychiatric intake evaluation. 1914- Care signed out to Aria Israel PA-C, pending psychiatric placement. RG - Care signed out to myself at shift change. Patient resting comfortably. Pending inpatient psychiatric bed placement. PM meds ordered. Patient was accepted to [facility]. Will not have a bed until the morning. Resting comfortably. No events. Care signed out to Dr. Moreno at shift change. <Aria Israel PA-C - Last Filed: 02/27/25 00:45> Patient is a 64-year-old male who presents to the ER with suicidal ideation. He reports he had a plan to shoot himself and he owns a gun. Patient reports he started experiencing symptoms a couple of months ago, but they have gotten worse over the past 24 hours. He reports he went to his mom's house, who was worried about him, so she called EMS. Patient door sys a history of emphysema (stage IV), depression, alcoholism, cardiac bypass surgery. He reports he uses oxygen at night. Patient also reports he has been drinking approximately a quarts of red wine every night before bed. He endorses a history of psychiatric illness but reports ?nothing has helped in the past, including ECT. Patient denies any chest pain, shortness of breath, recent fevers, or increased wheezing. Labs Ordered: CBC, CMP, TSH, COVID/flu/RSV, ethanol, Tylenol level Imaging Ordered: None necessary Medications Ordered: None necessary Results: Patient's CBC indicates a RBC of 4.37, hemoglobin of 13.4, hematocrit of 39.7%. His chemistry indicates a sodium of 135, carbon dioxide of 31, BUN is 7, creatinine is 0.51. Patient's TSH was within normal limits. His urinalysis indicates 1+ protein, 2+ ketones, trace leukocytes, 3-5 rbcs. His UDS was positive for cannabinoids. Patient's alcohol level was negative. Diagnosis: Suicidal ideation Consults: Psychiatry (intake) 163-patient is medically cleared for psychiatric intake evaluation. 1914- Care signed out to Aria Israel PA-C, pending psychiatric placement. - Care signed out to myself at shift change. Patient resting comfortably. Pending inpatient psychiatric bed placement. PM meds ordered. Patient was accepted to [facility]. Will not have a bed until the morning. Resting comfortably. No events. Care signed out to Dr. Moreno at shift change. 0700: Still waiting for bed avail. Signed out at shift change. No issues overnight. <Kaci Moreno MD - Last Filed: 02/27/25 19:02> Differential Diagnosis Differential diagnosis: Likely suicidal ideation, bipolar disorder, depression and acute anxiety < Priti Melchor APRN - Last Filed: 02/26/25 19:13> Lab Data Attestation: I reviewed the patient's lab results. <Priti Melchor APRN - Last Filed: 02/26/25 19:13> Result diagrams: 02/26/25 15:34 02/26/25 15:34 <Priti Melchor APRN - Last Filed: 02/26/25 19:13> Labs: Lab Results 02/26/25 02/26/25 Range/Units 14:54 15:34 WBC 8.2 (4.5-10.0) K/mm3 RBC 4.37 L (4.6-6.20) M/mm3 Hgb 13.4 L D (14.0-18.0) g/dL Hct 39.7 L (42.0-52.0) % MCV 90.8 (80-100) fl MCH 30.7 (26-34) pg MCHC 33.8 (32-36) g/dl RDW 13.0 (11.5-14.5) % Plt Count 218 (150-375) k/mm3 MPV 8.2 (7.4-10.4) fl Immature Gran % (Auto) 0.4 (0-0.5) % Neut % (Auto) 59.4 (45.5-73.1) % Lymph % (Auto) 28.5 (18.3-44.2) % [place] % (Auto) 8.7 H (2.6-8.5) % Eos % (Auto) 2.3 (0-4.4) % Baso % (Auto) 0.7 (0.2-1.2) % Lymph # (Auto) 2.32 (0.9-3.2) K/mm3 [place] # (Auto) 0.7 H (0.1-0.6) K/mm3 Eos # (Auto) 0.2 (0-0.3) K/mm3 Baso # (Auto) 0.1 (0.0-0.1) K/mm3 Abs Immat Gran (auto) 0.03 (0.00-0.031) K/mm3 Absolute Neuts (auto) 4.8 (1.3-6.7) K/mm3 Absolute Nucleated RBC 0.000 (0.0-0.012) K/mm3 Nucleated RBC % 0.0 (0.0-0.2) % Sodium 135 L (137-145) mmol/L Potassium 3.8 (3.4-5.0) mmol/L Chloride 99 (98-107) mmol/L Carbon Dioxide 31 H (22-30) mmol/L Anion Gap 5 (4-12) mmol/L BUN 7 L (9-20) mg/dL Creatinine 0.51 L (0.7-1.3) mg/dL Estim Creat Clear Calc 125 ml/min Estimated GFR > 60 (59 - ) Glucose 89 (65-110) mg/dL Calcium 9.1 (8.4-10.2) mg/dL Total Bilirubin 0.6 (0.2-1.3) mg/dL AST 29 (17-59) U/L ALT 15 (6-50) U/L Alkaline Phosphatase 109 (38-126) U/L Total Protein 7.3 (6.3-8.2) g/dL Albumin 4.2 (3.5-5.1) g/dL TSH 0.738 (0.465-4.680) uIU/mL Urine Color Yellow (Yellow) Urine Appearance Clear (Clear) Urine pH 7.5 (5.0-9.0) Ur Specific [place] 1.020 (1.001-1.035) Urine Protein 1+ H (Negative) mg/dL Urine Glucose (UA) Negative (Negative) mg/dL Urine Ketones 2+ H (Negative) mg/dL Ur Blood (Man) Negative (Negative) Urine Nitrate Negative (Negative) Urine Bilirubin Negative (Negative) Urine Urobilinogen 1.0 (<2.0) mg/dL Leukocyte Esterase Rfl Trace H (Negative) JOSE/UL Urine RBC 3-5 H (0-2) /hpf Urine WBC 0-5 (0-3) /hpf Ur Squamous Epith Cells None seen (Few) /hpf Urine Bacteria None seen /hpf Urine Casts 0-2 Urine Opiates Screen Negative (Negative) Urine Methadone Screen Negative (Negative) Acetaminophen < 10 L (10-30) ug/mL Ur Barbiturates Screen Negative (Negative) Ur Phencyclidine Scrn Negative (Negative) Ur Amphetamine Screen Negative (Negative) U Benzodiazepines Scrn Negative (Negative) Urine Cocaine Screen Negative (Negative) U Cannabinoids Screen Positive A (Negative) Ethyl Alcohol < 10 (<10) mg/dL Influenza A (RT-PCR) Negative (Negative) Influenza B (RT-PCR) Negative (Negative) RSV (RT-PCR) Negative (Negative) SARS-CoV-2 RNA (RT-PCR) Negative (Negative) <Priti Melchor, SENIOR DATA WAREHOUSE ARCHITECT - Last Filed: 02/26/25 19:13> Lab Results 02/26/25 02/26/25 Range/Units 14:54 15:34 WBC 8.2 (4.5-10.0) K/mm3 RBC 4.37 L (4.6-6.20) M/mm3 Hgb 13.4 L D (14.0-18.0) g/dL Hct 39.7 L (42.0-52.0) % MCV 90.8 (80-100) fl MCH 30.7 (26-34) pg MCHC 33.8 (32-36) g/dl RDW 13.0 (11.5-14.5) % Plt Count 218 (150-375) k/mm3 MPV 8.2 (7.4-10.4) fl Immature Gran % (Auto) 0.4 (0-0.5) % Neut % (Auto) 59.4 (45.5-73.1) % Lymph % (Auto) 28.5 (18.3-44.2) % [place] % (Auto) 8.7 H (2.6-8.5) % Eos % (Auto) 2.3 (0-4.4) % Baso % (Auto) 0.7 (0.2-1.2) % Lymph # (Auto) 2.32 (0.9-3.2) K/mm3 [place] # (Auto) 0.7 H (0.1-0.6) K/mm3 Eos # (Auto) 0.2 (0-0.3) K/mm3 Baso # (Auto) 0.1 (0.0-0.1) K/mm3 Abs Immat Gran (auto) 0.03 (0.00-0.031) K/mm3 Absolute Neuts (auto) 4.8 (1.3-6.7) K/mm3 Absolute Nucleated RBC 0.000 (0.0-0.012) K/mm3 Nucleated RBC % 0.0 (0.0-0.2) % Sodium 135 L (137-145) mmol/L Potassium 3.8 (3.4-5.0) mmol/L Chloride 99 (98-107) mmol/L Carbon Dioxide 31 H (22-30) mmol/L Anion Gap 5 (4-12) mmol/L BUN 7 L (9-20) mg/dL Creatinine 0.51 L (0.7-1.3) mg/dL Estim Creat Clear Calc 125 ml/min Estimated GFR > 60 (59 - ) Glucose 89 (65-110) mg/dL Calcium 9.1 (8.4-10.2) mg/dL Total Bilirubin 0.6 (0.2-1.3) mg/dL AST 29 (17-59) U/L ALT 15 (6-50) U/L Alkaline Phosphatase 109 (38-126) U/L Total Protein 7.3 (6.3-8.2) g/dL Albumin 4.2 (3.5-5.1) g/dL TSH 0.738 (0.465-4.680) uIU/mL Urine Color Yellow (Yellow) Urine Appearance Clear (Clear) Urine pH 7.5 (5.0-9.0) Ur Specific [place] 1.020 (1.001-1.035) Urine Protein 1+ H (Negative) mg/dL Urine Glucose (UA) Negative (Negative) mg/dL Urine Ketones 2+ H (Negative) mg/dL Ur Blood (Man) Negative (Negative) Urine Nitrate Negative (Negative) Urine Bilirubin Negative (Negative) Urine Urobilinogen 1.0 (<2.0) mg/dL Leukocyte Esterase Rfl Trace H (Negative) JOSE/UL Urine RBC 3-5 H (0-2) /hpf Urine WBC 0-5 (0-3) /hpf Ur Squamous Epith Cells None seen (Few) /hpf Urine Bacteria None seen /hpf Urine Casts 0-2 Urine Opiates Screen Negative (Negative) Urine Methadone Screen Negative (Negative) Acetaminophen < 10 L (10-30) ug/mL Ur Barbiturates Screen Negative (Negative) Ur Phencyclidine Scrn Negative (Negative) Ur Amphetamine Screen Negative (Negative) U Benzodiazepines Scrn Negative (Negative) Urine Cocaine Screen Negative (Negative) U Cannabinoids Screen Positive A (Negative) Ethyl Alcohol < 10 (<10) mg/dL Influenza A (RT-PCR) Negative (Negative) Influenza B (RT-PCR) Negative (Negative) RSV (RT-PCR) Negative (Negative) SARS-CoV-2 RNA (RT-PCR) Negative (Negative) <Aria Israel PA-C - Last Filed: 02/27/25 00:45> Lab Results 02/26/25 02/26/25 Range/Units 14:54 15:34 WBC 8.2 (4.5-10.0) K/mm3 RBC 4.37 L (4.6-6.20) M/mm3 Hgb 13.4 L D (14.0-18.0) g/dL Hct 39.7 L (42.0-52.0) % MCV 90.8 (80-100) fl MCH 30.7 (26-34) pg MCHC 33.8 (32-36) g/dl RDW 13.0 (11.5-14.5) % Plt Count 218 (150-375) k/mm3 MPV 8.2 (7.4-10.4) fl Immature Gran % (Auto) 0.4 (0-0.5) % Neut % (Auto) 59.4 (45.5-73.1) % Lymph % (Auto) 28.5 (18.3-44.2) % [place] % (Auto) 8.7 H (2.6-8.5) % Eos % (Auto) 2.3 (0-4.4) % Baso % (Auto) 0.7 (0.2-1.2) % Lymph # (Auto) 2.32 (0.9-3.2) K/mm3 [place] # (Auto) 0.7 H (0.1-0.6) K/mm3 Eos # (Auto) 0.2 (0-0.3) K/mm3 Baso # (Auto) 0.1 (0.0-0.1) K/mm3 Abs Immat Gran (auto) 0.03 (0.00-0.031) K/mm3 Absolute Neuts (auto) 4.8 (1.3-6.7) K/mm3 Absolute Nucleated RBC 0.000 (0.0-0.012) K/mm3 Nucleated RBC % 0.0 (0.0-0.2) % Sodium 135 L (137-145) mmol/L Potassium 3.8 (3.4-5.0) mmol/L Chloride 99 (98-107) mmol/L Carbon Dioxide 31 H (22-30) mmol/L Anion Gap 5 (4-12) mmol/L BUN 7 L (9-20) mg/dL Creatinine 0.51 L (0.7-1.3) mg/dL Estim Creat Clear Calc 125 ml/min Estimated GFR > 60 (59 - ) Glucose 89 (65-110) mg/dL Calcium 9.1 (8.4-10.2) mg/dL Total Bilirubin 0.6 (0.2-1.3) mg/dL AST 29 (17-59) U/L ALT 15 (6-50) U/L Alkaline Phosphatase 109 (38-126) U/L Total Protein 7.3 (6.3-8.2) g/dL Albumin 4.2 (3.5-5.1) g/dL TSH 0.738 (0.465-4.680) uIU/mL Urine Color Yellow (Yellow) Urine Appearance Clear (Clear) Urine pH 7.5 (5.0-9.0) Ur Specific [place] 1.020 (1.001-1.035) Urine Protein 1+ H (Negative) mg/dL Urine Glucose (UA) Negative (Negative) mg/dL Urine Ketones 2+ H (Negative) mg/dL Ur Blood (Man) Negative (Negative) Urine Nitrate Negative (Negative) Urine Bilirubin Negative (Negative) Urine Urobilinogen 1.0 (<2.0) mg/dL Leukocyte Esterase Rfl Trace H (Negative) JOSE/UL Urine RBC 3-5 H (0-2) /hpf Urine WBC 0-5 (0-3) /hpf Ur Squamous Epith Cells None seen (Few) /hpf Urine Bacteria None seen /hpf Urine Casts 0-2 Urine Opiates Screen Negative (Negative) Urine Methadone Screen Negative (Negative) Acetaminophen < 10 L (10-30) ug/mL Ur Barbiturates Screen Negative (Negative) Ur Phencyclidine Scrn Negative (Negative) Ur Amphetamine Screen Negative (Negative) U Benzodiazepines Scrn Negative (Negative) Urine Cocaine Screen Negative (Negative) U Cannabinoids Screen Positive A (Negative) Ethyl Alcohol < 10 (<10) mg/dL Influenza A (RT-PCR) Negative (Negative) Influenza B (RT-PCR) Negative (Negative) RSV (RT-PCR) Negative (Negative) SARS-CoV-2 RNA (RT-PCR) Negative (Negative) <Lebron Roa MD - Last Filed: 02/27/25 17:48> Lab Results 02/26/25 02/26/25 Range/Units 14:54 15:34 WBC 8.2 (4.5-10.0) K/mm3 RBC 4.37 L (4.6-6.20) M/mm3 Hgb 13.4 L D (14.0-18.0) g/dL Hct 39.7 L (42.0-52.0) % MCV 90.8 (80-100) fl MCH 30.7 (26-34) pg MCHC 33.8 (32-36) g/dl RDW 13.0 (11.5-14.5) % Plt Count 218 (150-375) k/mm3 MPV 8.2 (7.4-10.4) fl Immature Gran % (Auto) 0.4 (0-0.5) % Neut % (Auto) 59.4 (45.5-73.1) % Lymph % (Auto) 28.5 (18.3-44.2) % [place] % (Auto) 8.7 H (2.6-8.5) % Eos % (Auto) 2.3 (0-4.4) % Baso % (Auto) 0.7 (0.2-1.2) % Lymph # (Auto) 2.32 (0.9-3.2) K/mm3 [place] # (Auto) 0.7 H (0.1-0.6) K/mm3 Eos # (Auto) 0.2 (0-0.3) K/mm3 Baso # (Auto) 0.1 (0.0-0.1) K/mm3 Abs Immat Gran (auto) 0.03 (0.00-0.031) K/mm3 Absolute Neuts (auto) 4.8 (1.3-6.7) K/mm3 Absolute Nucleated RBC 0.000 (0.0-0.012) K/mm3 Nucleated RBC % 0.0 (0.0-0.2) % Sodium 135 L (137-145) mmol/L Potassium 3.8 (3.4-5.0) mmol/L Chloride 99 (98-107) mmol/L Carbon Dioxide 31 H (22-30) mmol/L Anion Gap 5 (4-12) mmol/L BUN 7 L (9-20) mg/dL Creatinine 0.51 L (0.7-1.3) mg/dL Estim Creat Clear Calc 125 ml/min Estimated GFR > 60 (59 - ) Glucose 89 (65-110) mg/dL Calcium 9.1 (8.4-10.2) mg/dL Total Bilirubin 0.6 (0.2-1.3) mg/dL AST 29 (17-59) U/L ALT 15 (6-50) U/L Alkaline Phosphatase 109 (38-126) U/L Total Protein 7.3 (6.3-8.2) g/dL Albumin 4.2 (3.5-5.1) g/dL TSH 0.738 (0.465-4.680) uIU/mL Urine Color Yellow (Yellow) Urine Appearance Clear (Clear) Urine pH 7.5 (5.0-9.0) Ur Specific [place] 1.020 (1.001-1.035) Urine Protein 1+ H (Negative) mg/dL Urine Glucose (UA) Negative (Negative) mg/dL Urine Ketones 2+ H (Negative) mg/dL Ur Blood (Man) Negative (Negative) Urine Nitrate Negative (Negative) Urine Bilirubin Negative (Negative) Urine Urobilinogen 1.0 (<2.0) mg/dL Leukocyte Esterase Rfl Trace H (Negative) JOSE/UL Urine RBC 3-5 H (0-2) /hpf Urine WBC 0-5 (0-3) /hpf Ur Squamous Epith Cells None seen (Few) /hpf Urine Bacteria None seen /hpf Urine Casts 0-2 Urine Opiates Screen Negative (Negative) Urine Methadone Screen Negative (Negative) Acetaminophen < 10 L (10-30) ug/mL Ur Barbiturates Screen Negative (Negative) Ur Phencyclidine Scrn Negative (Negative) Ur Amphetamine Screen Negative (Negative) U Benzodiazepines Scrn Negative (Negative) Urine Cocaine Screen Negative (Negative) U Cannabinoids Screen Positive A (Negative) Ethyl Alcohol < 10 (<10) mg/dL Influenza A (RT-PCR) Negative (Negative) Influenza B (RT-PCR) Negative (Negative) RSV (RT-PCR) Negative (Negative) SARS-CoV-2 RNA (RT-PCR) Negative (Negative) <Kaci Moreno MD - Last Filed: 02/27/25 19:02> Discharge Plan Discharge Clinical Impression: Suicidal ideation <Priti Melchor APRN - Last Filed: 02/26/25 19:13> Patient Disposition: Psychiatric [facility]osp <Priti Melchor APRN - Last Filed: 02/26/25 19:13> Condition: Serious <Priti Melchor APRN - Last Filed: 02/26/25 19:13> Patient Language: Greek <Priti Melchor APRN - Last Filed: 02/26/25 19:13> Prescriptions: No Action alendronate 70 mg tablet 70 mg PO WEEKLY Qty: 12 2RF Rx Instructions: Takes on Sunday dexlansoprazole [Dexilant] 30 mg capsule,biphase delayed releas 30 mg PO DAILY Qty: 90 2RF furosemide [Lasix] 20 mg tablet 20 mg PO DAILY isosorbide mononitrate 30 mg tablet extended release 24 hr 30 mg PO DAILY cholecalciferol (vitamin D3) 125 mcg (5,000 unit) capsule 125 mcg PO DAILY guaifenesin [Mucinex] 600 mg tablet extended release 12hr 600 mg PO BID Trelegy Ellipta 100-62.5-25 mcg blister with device 1 inh inhalation DAILY multivitamin [Daily Multi-Vitamin] Tablet 1 tablet PO DAILY aspirin 81 mg tablet,delayed release (DR/EC) 81 mg PO DAILY@0800 Qty: 90 3RF Ohtuvayre 3 mg/2.5 mL suspension for nebulization 2.5 ml inhalation QAM AND QPM Qty: 150 5RF Rx Instructions: This will replace Daliresp (roflumilast) atorvastatin 80 mg tablet See Rx Instructions .ROUTE .COMPLEX Qty: 30 0RF Dose Instruction: TAKE 1 TABLET BY MOUTH AT BEDTIME Rx Instructions: TAKE 1 TABLET BY MOUTH AT BEDTIME clopidogrel 75 mg tablet 75 mg PO DAILY fluticasone furoate 100 mcg/actuation blister with device 1 inh inhalation DAILY methocarbamol 500 mg tablet 1,000 mg PO TID potassium chloride [K-Tab] 20 mEq tablet extended release 20 meq PO DAILY albuterol sulfate 90 mcg/actuation HFA aerosol inhaler 2 puff INHALATION Q4H PRN (Reason: shortness of breath or wheezing) metoprolol succinate 100 mg tablet extended release 24 hr See Rx Instructions .ROUTE .COMPLEX Qty: 30 5RF Dose Instruction: TAKE 1 TABLET BY MOUTH EVERY DAY Rx Instructions: TAKE 1 TABLET BY MOUTH EVERY DAY albuterol sulfate 1.25 mg/3 mL solution for nebulization 1.25 mg inhalation Q4-6H PRN (Reason: shortness of breath or wheezing) calcium carbonate 600 mg calcium (1,500 mg) tablet 600 mg PO DAILY Hair,Skin and Nails Tablet 1 tablet PO DAILY cholecalciferol (vitamin D3) 125 mcg (5,000 unit) capsule 125 mcg PO DAILY vitamin B complex-folic acid 0.4 mg tablet 1 tablet PO DAILY <Priti Melchor APRN - Last Filed: 02/26/25 19:13> Follow-up/Referrals: Dieudonne Posada MD [Primary Care Provider, Internal Medicine] <Priti Melchor, ZAINA - Last Filed: 02/26/25 19:13>
[2025-02-26 14:39] VITALS: BP 150/94; PULSE 96; RESP 15; TEMP 36.7; O2SAT 98
[2025-02-26] MEDS: LORazepam (*CRX) 1 MG TABLET PO (14:44)
[2025-02-26 15:11] LABS: Add Urine Microscopic? YES; Appearance Urine Clear (Clear); Glucose Urine UA Negative (Negative); Leukocyte Esterase Ur Trace LEU/UL (Negative); Nitrate Urine Negative (Negative); Non Pathogenic Casts 0-2; Specific Grav Ur 1.020 (1.001-1.035)
[2025-02-26 15:49] LABS: Hematocrit 39.7 % (42.0-52.0); Hemoglobin 13.4 g/dL (14.0-18.0); Immature Granulocyte Percent A 0.4 % (0-0.5); Lymphocytes Absolute Auto 2.32 K/mm3 (0.9-3.2); Mean Corpuscular HGB Conc 33.8 g/dl (32-36); Mean Corpuscular Hemoglobin 30.7 pg (26-34); Mean Corpuscular Volume 90.8 fl (80-100); Nucleated Red Blood Cells Absolute Auto 0.000 K/mm3 (0.0-0.012); Nucleated Red Blood Cells Perc 0.0 % (0.0-0.2); Platelet Count Result 218 k/mm3 (150-375); Red Blood Count 4.37 M/mm3 (4.6-6.20); White Blood Count 8.2 K/mm3 (4.5-10.0)
[2025-02-26 15:52] LABS: Cannabinoid Screen Urine Positive (Negative)
[2025-02-26 15:59] LABS: Acetaminophen < 10 ug/mL (10-30); Alanine Aminotransferase 15 U/L (6-50); Albumin Level 4.2 g/dL (3.5-5.1); Alkaline Phosphatase 109 U/L (38-126); Anion Gap 5 mmol/L (4-12); Aspartate Amino Transferase 29 U/L (17-59); Bilirubin,Total 0.6 mg/dL (0.2-1.3); Blood Urea Nitrogen 7 mg/dL (9-20); Calcium 9.1 mg/dL (8.4-10.2); Carbon Dioxide 31 mmol/L (22-30); Chloride 99 mmol/L (98-107); Estimated CRCL calculation 125 ml/min; Estimated Glomerular Filt Rate > 60; Glucose 89 mg/dL (65-110); Potassium 3.8 mmol/L (3.4-5.0); Sodium 135 mmol/L (137-145); Total Protein 7.3 g/dL (6.3-8.2)
[2025-02-26 16:25] LABS: Influenza A QL RT-PCR Negative (Negative); Influenza B QL RT-PCR Negative (Negative); RSV RNA, RT-PCR Negative (Negative); SARS-CoV-2 RNA PCR Negative (Negative)
[2025-02-26 16:29] LABS: Thyroid Stimulating Hormone 0.738 uIU/mL (0.465-4.680)
[2025-02-26 21:04] VITALS: BP 133/85; PULSE 100; RESP 16; O2SAT 95
[2025-02-26 22:34] VITALS: BP 148/92; PULSE 100; PULSE 83; RESP 18; O2SAT 95
[2025-02-26] MEDS: IPRATROPIUM 0.5 MG/ALBUTEROL SULFATE 2.5 MG AMPUL.NEB 3 ML INHALATION (22:34)
[2025-02-26] MEDS: CLOPIDOGREL BISULFATE 75 MG TABLET PO (23:23)
[2025-02-27 08:54] VITALS: BP 139/91; PULSE 100; RESP 20; TEMP 36.4; O2SAT 96
[2025-02-27] MEDS: FUROSEMIDE 20 MG TABLET PO (09:41)
[2025-02-27] MEDS: METOPROLOL SUCCINATE EXT REL 100 MG TABCR PO (09:42)
[2025-02-27] MEDS: CLOPIDOGREL BISULFATE 75 MG TABLET PO (09:42)
--- NOTE | 2025-02-27 10:15 | PC.NURSE ---
[facility] called back with update on pt transfer. States she contacted [facility] and they report that they do not have enough staffing to sit with pt since he wears O2 at night and do not know when staffing will be available. Ifeoma with [facility] states she will contact [facility]
--- NOTE | 2025-02-27 10:42 | PC.NURSE ---
Colleen with [facility] called back stating pt declined by [facility]. States pt is on waitilist at [facility] requests chart to be faxed over. Pt chart faxed to [facility] at [phone].
--- NOTE | 2025-02-27 11:31 | PC.NURSE ---
Colleen with [facility] called back stating [facility] requesting chart, information faxed to [phone].
--- NOTE | 2025-02-27 12:08 | PC.NURSE ---
Patient asking for Ativan for Anxiety-Dr Roa made aware
[2025-02-27] MEDS: LORazepam (*CRX) 1 MG TABLET PO (12:12)
--- NOTE | 2025-02-27 12:28 | PC.NURSE ---
Voluntary/Involuntary paperwork faxed to [facility] at their request
[2025-02-27 12:30] VITALS: BP 148/100; PULSE 94; RESP 18; TEMP 36.7; O2SAT 98
--- NOTE | 2025-02-27 14:21 | PC.NURSE ---
1350-Received call from [facility]-spoke with Iris, patient accepted to [facility]
--- NOTE | 2025-02-27 14:24 | PC.NURSE ---
Attempted to call report-receiving Nurse not available and will call back
--- NOTE | 2025-02-27 15:09 | PC.NURSE ---
1500--Report to Sharon [facility] at [facility] in [place]
[2025-02-27 15:27] VITALS: BP 151/100; PULSE 100; RESP 18; TEMP 37.1; O2SAT 97
== END 2025-02-27 15:36 ==
PROVIDERS: Registered Nurse; Emergency Provider Physician Assistant; PCP Emergency Medicine
DX: R45.851 Suicidal ideations (principal); Z11.52 Encounter for screening for COVID-19; J43.9 Emphysema, unspecified; I25.5 Ischemic cardiomyopathy; I34.0 Nonrheumatic mitral (valve) insufficiency; I25.10 Atherosclerotic heart disease of native coronary artery without angina pectoris; I25.2 Old myocardial infarction; I10 Essential (primary) hypertension; E87.1 Hypo-osmolality and hyponatremia; E78.00 Pure hypercholesterolemia, unspecified; K21.9 Gastro-esophageal reflux disease without esophagitis; M81.0 Age-related osteoporosis without current pathological fracture; F41.9 Anxiety disorder, unspecified; F10.20 Alcohol dependence, uncomplicated; Y90.0 Blood alcohol level of less than 20 mg/100 ml; F32.A Depression, unspecified; Z95.2 Presence of prosthetic heart valve; Z95.1 Presence of aortocoronary bypass graft; Z95.5 Presence of coronary angioplasty implant and graft; Z87.01 Personal history of pneumonia (recurrent); Z87.891 Personal history of nicotine dependence; Z98.49 Cataract extraction status, unspecified eye; Z79.82 Long term (current) use of aspirin; Z79.02 Long term (current) use of antithrombotics/antiplatelets; Z79.899 Other long term (current) drug therapy
CPT/HCPCS: 36415; 80053; 80143; 80307; 81001; 82077; 84443; 85025; 87637; 93005; 94640; 99285; A9270

== ENCOUNTER 2025-03-11 10:38 | Emergency (ER) | payer OTHER, SELFPAY ==
--- NOTE | ~2025-03-11 | XR_ITS ---
Examination: XR chest 2V Clinical History: pleuritic pain, cough, sore throat and chest pain for 5 days Comparison: 01/11/2025 Technique: PA and Lateral Findings: Cardiomediastinal silhouette normal size and configuration. Lungs clear. No acute bony abnormality. Osteopenia. IMPRESSION: 1. No acute cardiopulmonary findings. Reviewed, dictated and finalized at location R.
[2025-03-11 10:52] VITALS: BP 93/72; PULSE 87; RESP 16; TEMP 36.4; O2SAT 97
--- NOTE | 2025-03-11 11:27 | ED.GENADULT ---
HPI - General Adult General Chief complaint: Upper Respiratory Infection Stated complaint: lung pain, sore throat, shortness of breath Source: patient Mode of arrival: ambulatory Limitations: no limitations History of Present Illness HPI narrative: Pt is a 64 y/o male presenting with c/o URI sx. Sx reported include sore throat, cough, congestion, lung pain with coughing. Sx began 5 days ago. Also reports continued soreness to postop CABG site. States he is Rx supplemental O2 via [place] to use with exertion. Denies hemoptysis, lower extremity edema, CP. States his biggest complaint is his sore throat which is resolved with throat lozenges. No additional complaints. Related Data Home Medications ?Medication ?Instructions ?Recorded ?Confirmed ?Last Taken ?Type multivitamin (Daily Multi-Vitamin 1 tablet PO DAILY 03/13/24 02/26/25 02/25/25 History tablet) albuterol sulfate 90 mcg/actuation 2 puff inhalation Q4H PRN 01/13/25 02/26/25 02/25/25 History aerosol inhaler shortness of breath or wheezing furosemide 20 mg tablet (Lasix) 20 mg PO DAILY 02/18/25 02/26/25 02/25/25 History fluticasone fur. 100 mcg-umeclid 1 inh inhalation DAILY 02/23/25 02/26/25 02/25/25 History 62.5 mcg-vilant 25 mcg inhalat.powder (Trelegy Ellipta) isosorbide mononitrate 30 mg 30 mg PO DAILY 02/23/25 02/27/25 02/25/25 History tablet,extended release 24 hr albuterol sulfate 1.25 mg/3 mL 1.25 mg inhalation Q4-6H PRN 02/24/25 02/26/25 02/25/25 History solution for nebulization shortness of breath or wheezing multivitamin with minerals 1 tablet PO DAILY 02/24/25 02/26/25 02/25/25 History (Hair,Skin and Nails tablet) folic acid 1 mg tablet 1 mg PO DAILY 03/06/25 Unknown History hydroxyzine HCl 50 mg tablet 50 mg PO DAILY PRN 03/06/25 Unknown History oxcarbazepine 300 mg tablet 300 mg PO BID 03/06/25 Unknown History pantoprazole 40 mg tablet,delayed 40 mg PO DAILY 03/06/25 Unknown History release thiamine HCl (vitamin B1) 100 mg 100 mg PO DAILY 03/06/25 Unknown History tablet trazodone 50 mg tablet 50 mg PO QHS 03/06/25 Unknown History Allergies Allergy/AdvReac Type Severity Reaction Status Date / Time No Known Allergies Allergy Verified 03/11/25 10:42 Review of Systems Review of Systems: CONSTITUTIONAL: Denies body aches, fever, chills, or sweats. EYES: Denies visual changes, redness, or discharge. ENT: Reports sore throat, congestion, denies rhinorrhea or otalgia. CARDIOVASCULAR: Denies chest pain, palpitations, or edema. RESPIRATORY: Reports cough, dyspnea. GASTROINTESTINAL: Denies abdominal pain, nausea, vomiting, or diarrhea. GENITOURINARY: Denies dysuria or hematuria. SKIN: reports pain to CABG scar, denies rash, itching MUSCULOSKELETAL: Denies back pain, joint pain, or myalgia. NEUROLOGIC: Denies headache, numbness, tingling, or weakness. PSYCH: Denies depression or anxiety. All systems reviewed & are unremarkable except as noted in HPI and below PMFSH Past Medical History Medical History Ischemic cardiomyopathy EF is low as 30 to 35% in June 2023; improved to 60 to 65% on echo obtained in August 2023. Mitral valve regurgitation COPD with emphysema Coronary artery disease Non-STEMI (non-ST elevated myocardial infarction) Pneumonia Hypertension Chronic hyponatremia Thoracic compression fracture Gastroesophageal reflux disease Osteoporosis Heavy alcohol use Anxiety and depression has previously undergone ECT treatments Hypercholesteremia Former smoker Surgical History Surgical History History of mitral valve replacement S/P triple vessel bypass History of cataract extraction History of coronary artery stent placement (06/2023) stents to the LM into LAD and proximal to mid LAD History of tonsillectomy Family History Family History Father Aneurysm Grandparent Black lung Social History Social History Social History: Surrogate medical decision maker: Valeriano Luz Elena, sibling. Code status: Modified code, no intubation. Smoking packs per day: 1.5 Smoking cigarettes per day: 30.0 Years smoked: 42 Smoking pack-years: 63.00 Smoking status: Former smoker Tobacco type: cigarettes Second hand tobacco smoke exposure: No Smoking end date: 06/11/19 Alcohol intake: current Alcohol use details: not for the last 2 months Substance use: former Substance use type: does not use Last use: Sunday Do You Feel Safe in your Home?: Yes Lack of Transportation: No Lack of Food: Never True Current Housing: I Have Housing Concerned About Future Housing: No Difficulty Paying Gas/Electric Bills: No Difficulty Paying for Meds: No Currently Unemployed: No Education: Master's Degree or Higher Difficulty w/ Childcare or Family Care: No Living arrangements: alone Additional living arrangements comments: Lives alone in [place]. 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 Spiritual care concerns: No Exam Narrative: GENERAL: Well-appearing, well-nourished, and in no acute distress. HEAD: Normocephalic, atraumatic. EYES: EOMI. No redness or drainage. Conjunctivae normal. ENT: Mucous membranes pink and moist. Nares clear. No rhinorrhea. TMs normal bilaterally. Throat normal, tonsils are surgically absent. Uvula midline. NECK: Normal AROM. Supple. No lymphadenopathy. CHEST: No respiratory distress. Clear to auscultation. HEART: Regular rate and rhythm. No murmur appreciated. Normal peripheral pulses. ABDOMEN: Soft, nontender, nondistended, normal active bowel sounds. MUSCULOSKELETAL: No bony tenderness. EXTREMITIES: Normal range of motion. No edema. SKIN: Warm, dry, no rash. Capillary refill normal. Normal skin turgor. Vertical mediastinal post op scar noted without evidence of infection, dehiscence--it is mildly TTP NEURO: No focal deficits. Alert and oriented x3. Gait steady. PSYCH: Normal affect. No signs of depression or anxiety. Course Course Level of Care: Express Care Visit Vital Signs Vital signs: Vital Signs Temperature 97.6 F 03/11/25 10:52 Pulse Rate 87 03/11/25 10:52 Respiratory Rate 16 03/11/25 10:52 Blood Pressure 93/72 L 03/11/25 10:52 Pulse Oximetry 97 03/11/25 10:52 Temperature 97.6 F 03/11/25 10:52 Pulse Rate 87 03/11/25 10:52 Respiratory Rate 16 03/11/25 10:52 Blood Pressure 93/72 L 03/11/25 10:52 Pulse Oximetry 97 03/11/25 10:52 Medical Decision Making MDM Narrative Medical decision making narrative: I offered to transfer patient to ER for further diagnostic work up of his SOB however, he declined stating that his biggest complaint is his sore throat. Going to cover patient with Doxy + augmentin due to extensive pulmonary hx with strict f/u PCP and strict go to ER precautions discussed at length. Vital Signs Vital Signs: Vital Signs Temperature 97.6 F 03/11/25 10:52 Pulse Rate 87 03/11/25 10:52 Respiratory Rate 16 03/11/25 10:52 Blood Pressure 93/72 L 03/11/25 10:52 Pulse Oximetry 97 03/11/25 10:52 Temperature 97.6 F 03/11/25 10:52 Pulse Rate 87 03/11/25 10:52 Respiratory Rate 16 03/11/25 10:52 Blood Pressure 93/72 L 03/11/25 10:52 Pulse Oximetry 97 03/11/25 10:52 Lab Data Lab results reviewed: Yes I reviewed the patient's lab results. Labs: Lab Results 03/11/25 Range/Units 11:43 POC Influenza A Ag Negative (Negative) POC Influenza B Ag Negative (Negative) POC SARS CoV-2 Ag Negative (Negative) POC Grp A Strep Screen Negative (Negative) Imaging Data Attestation: I personally reviewed and interpreted this imaging study as follows: My impression: NAD Radiologist's impression: NAD Discharge Plan Discharge Clinical Impression: Breath shortness, Pain in surgical scar Upper respiratory infection Qualifiers: URI type: unspecified URI Qualified Code(s): J06.9 - Acute upper respiratory infection, unspecified Pharyngitis Qualifiers: Pharyngitis/tonsillitis etiology: unspecified etiology Qualified Code(s): J02.9 - Acute pharyngitis, unspecified Cough Qualifiers: Cough type: acute Qualified Code(s): R05.1 - Acute cough Patient Disposition: Home Condition: Stable Instructions: Antibiotic Form, Viral Syndrome (ED) Additional Instructions: Go straight to ER should your symptoms become worse or should any new symptoms develop Patient Language: Eritrean Prescriptions: New doxycycline hyclate 100 mg capsule 100 mg PO DAILY Qty: 14 0RF amoxicillin-pot clavulanate 875-125 mg tablet 1 tablet PO Q12H Qty: 14 0RF No Action alendronate 70 mg tablet 70 mg PO WEEKLY Qty: 12 2RF Rx Instructions: Takes on Sunday furosemide [Lasix] 20 mg tablet 20 mg PO DAILY isosorbide mononitrate 30 mg tablet extended release 24 hr 30 mg PO DAILY Trelegy Ellipta 100-62.5-25 mcg blister with device 1 inh inhalation DAILY multivitamin [Daily Multi-Vitamin] Tablet 1 tablet PO DAILY folic acid 1 mg tablet 1 mg PO DAILY trazodone 50 mg tablet 50 mg PO QHS thiamine HCl (vitamin B1) 100 mg tablet 100 mg PO DAILY hydroxyzine HCl 50 mg tablet 50 mg PO DAILY PRN oxcarbazepine 300 mg tablet 300 mg PO BID pantoprazole 40 mg tablet,delayed release (DR/EC) 40 mg PO DAILY albuterol sulfate 90 mcg/actuation HFA aerosol inhaler 2 puff INHALATION Q4H PRN (Reason: shortness of breath or wheezing) metoprolol succinate 100 mg tablet extended release 24 hr See Rx Instructions .ROUTE .COMPLEX Qty: 30 5RF Dose Instruction: TAKE 1 TABLET BY MOUTH EVERY DAY Rx Instructions: TAKE 1 TABLET BY MOUTH EVERY DAY albuterol sulfate 1.25 mg/3 mL solution for nebulization 1.25 mg inhalation Q4-6H PRN (Reason: shortness of breath or wheezing) Hair,Skin and Nails Tablet 1 tablet PO DAILY atorvastatin 80 mg tablet See Rx Instructions .ROUTE .COMPLEX Qty: 30 5RF Dose Instruction: TAKE 1 TABLET BY MOUTH AT BEDTIME Rx Instructions: TAKE 1 TABLET BY MOUTH AT BEDTIME clopidogrel 75 mg tablet See Rx Instructions .ROUTE .COMPLEX Qty: 30 5RF Dose Instruction: TAKE 1 TABLET(75 MG) BY MOUTH DAILY Rx Instructions: TAKE 1 TABLET(75 MG) BY MOUTH DAILY potassium chloride 20 mEq tablet,ER particles/crystals See Rx Instructions .ROUTE .COMPLEX Qty: 90 0RF Dose Instruction: TAKE 1 TABLET(20 MEQ) BY MOUTH DAILY Rx Instructions: TAKE 1 TABLET(20 MEQ) BY MOUTH DAILY Follow-up/Referrals: Dieudonne Posada MD [Primary Care Provider, Internal Medicine] - 03/12/25 Time of Disposition: 12:01
[2025-03-11 11:46] LABS: EDCOVIDSCREEN Negative (Negative); EDINFLUASCREEN Negative (Negative); EDINFLUBSCREEN Negative (Negative); EDSTREPNEGPOS1 Negative (Negative)
== END 2025-03-11 12:09 | disposition home or self-care (01) ==
PROVIDERS: Emergency Provider Registered Nurse; PCP Emergency Medicine
DX: R06.02 Shortness of breath (principal); G89.18 Other acute postprocedural pain; J06.9 Acute upper respiratory infection, unspecified; J02.9 Acute pharyngitis, unspecified; R05.1 Acute cough; Z20.822 Contact with and (suspected) exposure to COVID-19; I25.5 Ischemic cardiomyopathy; J44.9 Chronic obstructive pulmonary disease, unspecified; I25.10 Atherosclerotic heart disease of native coronary artery without angina pectoris; I25.2 Old myocardial infarction; I10 Essential (primary) hypertension; K21.9 Gastro-esophageal reflux disease without esophagitis; M81.0 Age-related osteoporosis without current pathological fracture; E78.00 Pure hypercholesterolemia, unspecified; F41.9 Anxiety disorder, unspecified; F32.A Depression, unspecified; Z95.5 Presence of coronary angioplasty implant and graft; Z95.2 Presence of prosthetic heart valve; Z87.891 Personal history of nicotine dependence
CPT/HCPCS: 71046; 87081; 87426; 87804; 87880; 99213; G0463

== ENCOUNTER 2025-04-10 10:52 | Emergency (ER) | payer OTHER, SELFPAY ==
--- NOTE | ~2025-04-10 | CT_ITS ---
EXAMINATION: CT chest abdomen pelvis wo con DATE: 04/10/2025 13:19 INDICATION: Back pain post fall TECHNIQUE: Computed tomography (CT) of the chest, abdomen, and pelvis was performed with 100 mL Omnipaque-350 intravenous contrast. Automated exposure control and iterative reconstruction technique were employed. The dose-length product was 344.71 mGy-cm. COMPARISON: CT dated 01/11/2025 and 06/19/2024 FINDINGS: CHEST CT: Moderate emphysema. Interval decrease in size of a now very small posterior layering left pleural effusion with mild dependent atelectasis at the posterior basilar left lower lobe. There are 2 small regions with new septal line thickening in the left and right upper lobes which is most likely infectious or inflammatory in etiology. Chronic linear band of discoid atelectasis/scarring in the posterior right lower lobe. No interval change since 06/17/2023 in a likely benign 4 mm nodule left upper lobe. No pulmonary edema or right-sided pleural effusion. Heart size is normal. Atherosclerotic coronary artery calcifications. Again seen are changes of prior median sternotomy, mitral valve repair and possible coronary artery bypass grafting. There has also been stenting along the left anterior descending coronary artery. Thoracic aorta is normal in caliber. No pathologically enlarged thoracic lymphadenopathy. Mild thoracic spondylosis with chronic mild anterior wedging of a few mid and lower thoracic vertebral bodies. Minimally displaced acute appearing fracture of the posterior lateral left eighth rib. ABDOMEN/PELVIS CT: Liver, gallbladder, spleen, pancreas and bilateral adrenal glands are normal. The lateral nonobstructing nephrolithiasis with 2 stones in the upper pole the right kidney measuring up to 3 mm and 2 stones in the lower pole the left kidney, the larger measuring 6 mm. Stool and dependently layering fluid throughout the colon consistent with nonspecific diarrhea. Small bowel and appendix are normal. Bladder is normal. No free intraperitoneal gas or fluid. No pathologically enlarged abdominal or pelvic lymphadenopathy. Mild lumbar spondylosis. IMPRESSION: 1. Minimally displaced fracture of the posterolateral left eighth rib. 2. Decrease in size of a now very small left pleural effusion with unchanged mild dependent atelectasis in the left lower lobe. 3. Moderate emphysema with new small regions of peripheral septal line thickening in the bilateral upper lobes which are most likely infectious/inflammatory in etiology. 4. Bilateral nonobstructing nephrolithiasis. 5. Stool and small amount of fluid scattered throughout the otherwise normal colon consistent with nonspecific diarrhea. Reviewed, dictated and finalized at location A. IMPRESSION: 1. Minimally displaced fracture of the posterolateral left eighth rib. 2. Decrease in size of a now very small left pleural effusion with unchanged mi ld dependent atelectasis in the left lower lobe. 3. Moderate emphysema with new small regions of peripheral septal line thickeni ng in the bilateral upper lobes which are most likely infectious/inflammatory i n etiology. 4. Bilateral nonobstructing nephrolithiasis. 5. Stool and small amount of fluid scattered throughout the otherwise normal co isela consistent with nonspecific diarrhea.
[2025-04-10 10:55] VITALS: BP 124/83; PULSE 94; RESP 14; TEMP 36.9; O2SAT 95
--- OUTSIDE RECORDS SUMMARY | 2025-04-10 11:15 | XMS_ITS | Clinical Summary ---
Author Organization [employer] [facility] Address [address] [facility] [place] [address] Care Team Providers Care In Flight Refueling System Repairer Name Role Phone Dieudonne Posada MD Primary Care Provider Source Comments [facility],non-owned Affiliates and Associated Physician Practices is amultiple site organization consisting of ambulatory clinics and hospital sitesin [place], [place], [place] and [place]. This disclosure is being madepursuant to the Care Everywhere program and may not contain all information available regarding this patient. Last updated 18.[facility] Allergies No known active allergies Medications * This document contains information received from the source organization and may not represent a complete record from that organization. * Be aware that medications may not be up to date on this document. Alwaysverify current medications with the patient. albuterol HFA (PROVENTIL; VENTOLIN; PROAIR) 108 (90 Base) MCG/ACT inhalerIndications :Asthma,Bronchospa sm Inhale 2 (two) puffs by mouth every 4 hours as needed Active isosorbide mononitrate CR 24hr (Imdur) 30 MG tabletIndications: Stable Angina Pectoris Take 1 (one) tablet by mouth once daily 02/24/20 25 Active furosemide (Lasix) 20 MG tabletIndications: Hypertension Take 1 (one) tablet by mouth once daily 02/19/20 25 Active potassium chloride ER (K-TAB) 20 MEQ tabletIndications: Hypokalemia Take 1 (one) tablet by mouth once daily 01/14/20 25 Active alendronate (Fosamax) 70 MG tabletIndications: Osteopenia Take 1 (one) tablet by mouth every 7 days (once a week) before meal 09/09/19 25 Active clopidogrel (plaVIX) 75 MG tabletIndications: Thromboembolic Disease Prophylaxis Take 1 (one) tablet by mouth once daily 01/14/20 25 Active Trelegy Ellipta 100-62.5-25 MCG/ACT inhalerIndications :Asthma,Chronic Obstructive Pulmonary Disease Inhale 1 (one) puff by mouth once daily 01/26/20 25 Active albuterol (Accuneb) 1.25 MG/3ML nebulizer solutionIndication s:Bronchospasm Inhale 3 mL by mouth every 6 hours as needed 01/20/20 25 Active atorvastatin (Lipitor) 80 MG tabletIndications: Hyperlipidemia Use 1 (one) tablet as instructed at bedtime 12/17/19 25 Active metoprolol succinate XL 24hr (Toprol XL) 100 MG tabletIndications: Hypertension Take 1 (one) tablet by mouth once daily 02/25/20 25 Active hydrOXYzine HCl (Atarax) 50 MG tabletIndications: Anxiety Take 1 (one) tablet by mouth once daily as needed Reasons: Feeling Anxious 14 tablet 1 03/04/20 25 Active OXcarbazepine (Trileptal) 300 MG tabletIndications: Manic Phase of Bipolar Mood Disorder Take 1 (one) tablet by mouth 2 times daily for 7 days Reasons: Manic Phase of Manic-Depressi on 14 tablet 3 03/04/20 25 Active traZODone (Desyrel) 50 MG tabletIndications: Major Depressive Disorder Take 1 (one) tablet by mouth nightly as needed for Insomnia Reasons: Major Depressive Disorder 7 tablet 3 03/04/20 25 Active pantoprazole EC (Protonix) 40 MG tabletIndications: Heartburn,Stress Ulcer Take 1 (one) tablet by mouth once daily for 30 days Reasons: Heartburn, 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 30 tablet 03/04/20 25 Active thiamine (Vitamin B-1) 100 MG tabletIndications: Thiamine Deficiency Take 1 (one) tablet by mouth once daily for 30 days Reasons: Deficiency of Vitamin B1 30 tablet 03/04/20 25 025 folic acid (Folvite) 1 MG tabletIndications: Wernicke's Encephalopathy Take 1 (one) tablet by mouth once daily for 30 days Reasons: 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 Date Type Department Care Team Description 03/01/2025 Travel from Last 3 Months Social History Tobacco Use Types Packs/Day Years Used Date Smoking Tobacco: Former Cigarettes Smokeless Tobacco: Former Tobacco Cessation:Counseling Given: No Alcohol Use Standard Drinks/Week Comments Yes 0 (1 standard drink = 0.6 oz pur e alcohol) 1 quart of red wine AUDIT-C Answer Date Recorded Q1: How often do you have a drink containing alcohol? 4 or more times a week 02/27/2025 Q2: How many drinks containi ng alcohol do you have on a typical day when you are drinking? 10 or more Q3: How often do you have si x or more drinks on one occasion? Daily or almost daily 02/27/2025 Overall Financial Resource Strain (CARDIA) Answe r Date Recorded How hard is it for you to pa y for the very basics like food, housing, medical care, and heating? Patient declined 02/27/2025 [facility] - Occupational Stress Questionnaire Answer Date Recorded Do you feel stress - tense, restless, nervous, or anxious, or unable to sleep at night because your mind is troubled all the time - these days? Patient declined 02/27/2025 Hunger Vital Sign Answer Date Recorded Within the past 12 months, y ou worried that your food would run out before you got the money to buy more. Patient declined Within the past 12 months, t he food you bought just didn't last and you didn't have money to get more. Patient declined PRAPARE - Transportation Answer Date Re corded In the past 12 months, has l ack of transportation kept you from medical appointments or from getting medications? Patient declined 02/27/2025 In the past 12 months, has l ack of transportation kept you from meetings, work, or from getting things needed for daily living? Patient declined 02/27/2025 Housing Stability Vital Sign Answer Jose G e Recorded In the last 12 months, was t here a time when you were not able to pay the mortgage or rent on time? Patient declined 02/28/20 25 In the past 12 months, how m any times have you moved where you were living? 0 02/27/2025 At any time in the past 12 m [facility], were you homeless or living in a care home (including now)? 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 Gender Identity Not on file Sexual Orientation Not on file Last Filed Vital Signs Vital Sign Reading Time Taken Comments Blood Pressure 107/70 03/04/2025 9:33 AM CDT Pulse 80 03/04/2025 9:33 AM CDT Temperature 36.5 C (97.7 F) 03/04/2025 9:33 AM CDT Respiratory Rate 20 03/04/2025 9:33 AM CDT Oxygen Saturation 94% 03/04/2025 9:33 AM CDT Inhaled Oxygen Concentration 21% 03/03/2025 8 :41 PM CDT Weight 67.2 kg (148 lb 3.2 oz) 02/27/2025 5:21 P M CDT Height 180.3 cm (5' 11) 02/27/2025 5:21 PM CDT Body Mass Index 20.67 02/27/2025 5:21 PM CDT Plan of Treatment Health Maintenance Due Date Last Done Comments COLON MONITORING 1962 COLONOSCOPY - COLON CA SCREENING 1962 CT COLONOGRAPHY - COLON CA SCREENING 1962 FIT - COLON CA SCREENING 1962 FLEX SIG - COLON CA SCREENING 1962 HIV SCREENING 1977 HEPATITIS C SCREENING 03/30/1980 DTAP/TDAP/TD VACCINES (1 - Tdap) 1981 PNEUMOCOCCAL VACCINE 50+ (1 of 2 - PCV) 1981 ZOSTER VACCINE (1 of 2) 2012 Respiratory Syncytial Virus (RSV) Vaccine Pt: or over 60 yrs (1 - Risk 60-74 years 1-dose series) 2022 COLOGUARD (AGES 45-75) - COL ON CA SCREENING 08/17/2023 08/16/2020 Colorectal Cancer Screening 08/17/2023 COVID-19 VACCINE (2 - 2024-2 6 season) 2025 09/20/2020 INFLUENZA VACCINE (#1) 2025 HEPATITIS B VACCINE Aged Out No [...] on patient's age to complete this topic Medical Devices Implanted Type Area Manager Of Revenue Device Identifier Shelf Expiration Date Model / Serial / Lot Bone Bone Mouth Procedures Procedure Name Priority Date/Time Associated Diagnosis Comments OXCARBAZEPINE BLOOD Routine 03/04/2025 9 :55 AM CDT COMPREHENSIVE METABOLIC PANEL STAT 03/02/2025 6:07 PM CDT LIPID PROFILE Routine 03/02/2025 6:10 AM CDT HEMOGLOBIN A1C Routine 03/02/2025 6:10 AM CDT from Last 3 Months Results * OXCARBAZEPINE BLOOD (03/04/2025 9:55 AM CDT) [facility] Oxcarbazepine Metabolite 12.1 10.0 - 35.0 ug/mL 03/06/2025 2:28 PM CDT [facility] ([facility]) Comment: INTERPRETIVE INFORMATION: Oxcarbazepine Metabolite, Serum Therapeutic Range: 10.0 - 35.0 ug/mL Toxic Range: >=40.0 ug/mL This test measures monohydroxyoxcarbazepine (MHD). Adverse effects may include dizziness, fatigue, nausea, headache, somnolence, ataxia, and tremor. Performed By: [facility] [address] [place] [id number] City Constable: Julián Erazo MD, PhD CLIA Number: [id number] Blood BLOOD SPECIMEN / Unknown Lab Venipuncture / Unknown 03/04/2025 9:55 AM CDT 03/04/2025 9:59 AM CDT Lucia Coronado EXTRACTOR PULLER-MANAGER IMMUNOLOGY LAB - CHEMISTRY ORDERAB LES Final Result [facility] ([facility]) [address] [place] [address] * (ABNORMAL) COMPREHENSIVE METABOLIC PANEL (03/02/2025 6:07 PM CDT) Glucose 133(H) 70 - 125 mg/dL 03/02/2025 6:28 PM CDT [facility] Sodium 136 136 - 145 mmol/L 03/02/2025 6:28 PM CDT [facility] Potassium 4.1 3.4 - 5.1 mmol/L 03/02/2025 6:28 PM T [facility] Chloride 99 98 - 107 mmol/L 03/02/2025 6:28 PM CDT [facility] CO2 28 22 - 29 mmol/L 03/02/2025 6:28 PM T [facility] Calcium 9.15 8.4 - 10.2 mg/dL 03/02/2025 6:28 PM CDT [facility] Anion Gap 9 6 - 16 mmol/L 03/02/2025 6:28 PM T [facility] BUN 13.1 8.4 - 25.7 mg/dL 03/02/2025 6:28 PM T [facility] Creatinine 0.63(L) 0.72 - 1.25 mg/dL 03/02/2025 6:28 PM T [facility] Alkaline Phosphatase 97 40 - 150 U/L 03/02/2025 6:28 PM CDT [facility] ALT 11 7 - 42 U/L 03/02/2025 6:28 PM CDT [facility] AST 15 5 - 34 U/L 03/02/2025 6:28 PM CDT [facility] Protein Total 6.8 6.4 - 8.3 gm/dL 03/02/2025 6:28 PM T [facility] Albumin 3.8 3.1 - 4.5 gm/dL 03/02/2025 6:28 PM CDT [facility] Globulin Total 3.0 2.6 - 4.0 gm/dL 03/02/2025 6:28 PM CDT [facility] Albumin/Globulin Ratio 1.3 0.9 - 1.6 03/02/2025 6:28 PM CDT [facility] Bilirubin Total 0.2 0.2 - 1.2 mg/dL 03/02/2025 6:28 PM CDT [facility] eGFR >90 >90 mL/min/1.7 3m2 03/02/2025 6:28 PM CDT [facility] Comment:Estimated Glomerular Filtration Rate (eGFR) calculated using the CKD-EPI Creatinine Equation (2020), per the National Kidney Foundation and [place] Society of Nephrology recommendations. Blood BLOOD SPECIMEN / Unknown Venipuncture / Unknown 03/02/2025 6:07 PM CDT 03/02/2025 6:11 PM CDT Lucia Coronado EXTRACTOR PULLER-MANAGER IMMUNOLOGY LAB - CHEMISTRY ORDERAB LES Final Result Performing Organization Address City/State/[facility] Co de Phone Number [facility] [address] * HEMOGLOBIN A1C (03/02/2025 6:10 AM CDT) [facility] Hemoglobin A1c 4.9 4.2 - 5.6 % 03/02/2025 6:35 AM CDT [facility] Estimated Average Glucose 94 mg/dL 03/02/2025 6:35 AM CDT [facility] Blood BLOOD SPECIMEN / Unknown Lab Venipuncture / Unknown 03/02/2025 6:10 AM CDT 03/02/2025 6:15 AM CDT Narrative [facility] - 03/02/2025 6:35 AM CDT HbA1c Interpretation: Normal: < 5.7% Pre-diabetes: 5.7-6.4% Diabetes: Equal to or greater than 6.5% Test results diagnostic of diabetes should be repeated for confirmation. Treatment target values recommended by ADA and other clinical organizations should be used to evaluate metabolic control in patients. This test should not replace glucose testing for patients with Type 1 diabetes, pediatric patients, or women. Falsely low HbA1c results may be observed in patients with clinical conditions that shorten erythrocyte life span or decrease mean erythrocyte age such as the presence of unstable hemoglobin variants, elevated hemoglobin F level or other causes of hemolytic anemia. HbA1c may not accurately reflect glycemic control when clinical conditions that affect erythrocyte survival are present. Severe Iron deficiency anemia may yield falsely high results. Hemoglobin A1c assay should not be used to diagnose or monitor diabetes in patients with malignancy, recent blood transfusion, chronic kidney or liver disease. This method may yield falsely low results when hemoglobin (HbF) exceeds 5% in the specimen. The Rosenberg Alinity assay for the measurement of HbA1c is a National Glycohemoglobin Standardization Program (NGSP) certified method. us Kieran Mendoza MD LAB - CHEMISTRY ORDERABLES F inal Result [facility] [address] [place], [place] [id number] [place] [address] * LIPID PROFILE (03/02/2025 6:10 AM CDT) [facility] Cholesterol 132 <200 mg/dL 03/02/2025 6:39 AM T [facility] Triglycerides 99 <150 mg/dL 03/02/2025 6:39 AM T [facility] HDL Cholesterol 47 >40 mg/dL 5 6:39 AM T [facility] Chol HDL Ratio 2.8 1.0 - 6.0 03/02/2025 6:39 AM T [facility] LDL Calculated 65 65 - 130 mg/dL 03/02/2025 6:39 AM T [facility] Comment:LDL is calculated us ing the Friedewald equation. VLDL Calculated 20 <=30 mg/dL 5 6:39 AM T [facility] Blood BLOOD SPECIMEN / Unknown Lab Venipuncture / Unknown 03/02/2025 6:10 AM CDT 03/02/2025 6:15 AM CDT Narrative [facility] - 03/02/2025 6:39 AM CDT Lipid Profile Comment: CHOLESTEROL LEVEL..................CLINICAL INTERPRETATION LESS THAN 200 MG/DL..............................DESIRABLE 200-239 MG/DL..............................BORDERLINE HIGH GREATER THAN 240 MG/DL................................HIGH LDL-CHOLESTEROL LEVEL..............CLINICAL INTERPRETATION LESS THAN 100 MG/DL................................OPTIMAL 100-129 MG/DL.................................NEAR OPTIMAL GREATER THAN 160 MG/DL...........................HIGH RISK HDL RISK LEVEL GREATER THEN 60 MG/DL............................DECREASED 40-60 MG/DL........................................AVERAGE LESS THAN 40 MG/DL...............................INCREASED TRIGLYCERIDE LEVEL..................CLINICAL INTERPRETATION LESS THAN 150 MG/DL...............................DESIRABLE 150-199 MG/DL...............................BORDERLINE HIGH 200-499 MG/DL..........................................HIGH GREATER THAN 500..................................VERY HIGH THE NATIONAL CHOLESTEROL EDUCATION PROGRAM HAS SET THE ABOVE GUIDELINES (REFERANCE VALUES) FOR CHOLESTEROL AND HDL. RISK ASSOCIATED WITH CHOLESTEROL/HDL RATIOS RISK....................MALE RATIO.............FEMALE RATIO 1/2 AVERAGE.................<3.4.......................<3.3 LOW RISK.................... 4.0 ...................... 3.8 AVERAGE..................... 5.0 ...................... 4.5 2X AVERAGE.................. 9.5 ...................... 7.0 3X AVERAGE...................>23........................>11 Kieran Mendoza MD LAB - CHEMISTRY ORDERABLES F inal Result Performing Organization Address City/State/[facility] Co de Phone Number [facility] [address] [place] [address], [facility] from Last 3 Months Insurance [facility] Advance Directives * Full Code (Latest Code Status on File) Date Activated Date Inactivated Comments 02/27/2025 5:08 PM 03/04/2025 4:03 PM Care Teams In Flight Refueling System Repairer Relationship Specialty Start Date End Date Dieudonne Posada MD [address] [place] [id number] PCP - General Internal Medicine 02/27/25
--- OUTSIDE RECORDS SUMMARY | 2025-04-10 11:15 | XMS_ITS | Clinical Summary ---
Author Organization [facility] Address [address] [facility] [place] [address] Phone Care Team Providers Care Sports Apparel Internship Name Role Phone Ivette Barba APRN, CUT OFF SAW OPERATOR Primary Care Pro vider Allergies No known active allergies Medications buPROPion, Smoking Deter, (ZYBAN) 150 MG TABLET SR 12 HR Take 150 mg by mouth 2 times daily. Active diazePAM (VALIUM) 5 MG Tablet Take 5 mg by mouth every 8 hours as needed. Active famotidine (PEPCID) 20 MG Tablet Take 20 mg by mouth 2 times daily. Active [place]-3 Fatty Acids (FISH OIL PO) Take by [...] Comments Blood Pressure 120/70 06/27/2021 1:33 PM AIRPORT OPERATIONS CREW MEMBER Pulse 66 06/27/2021 1:33 PM AIRPORT OPERATIONS CREW MEMBER Temperature 36.6 C (97.9 F) 06/27/2021 1:33 PM AIRPORT OPERATIONS CREW MEMBER Respiratory Rate 16 06/27/2021 1:33 PM AIRPORT OPERATIONS CREW MEMBER Oxygen Saturation 97% 06/27/2021 1:33 PM AIRPORT OPERATIONS CREW MEMBER Inhaled Oxygen Concentration - - Weight 78.1 kg (172 lb 1.6 oz) 06/27/2021 1:33 P M AIRPORT OPERATIONS CREW MEMBER Height 180.3 cm (5' 11) 06/27/2021 1:33 PM AIRPORT OPERATIONS CREW MEMBER Body Mass Index 24 06/27/2021 1:33 PM AIRPORT OPERATIONS CREW MEMBER Plan of Treatment Health Maintenance Due Date [...] age to complete this topic Insurance MEDICAID [place] Care Teams Sports Apparel Internship Relationship Specialty Start Date End Date Ivette Barba, CUTTER BARREL DRUM, CUT OFF SAW OPERATOR [address] [place], [place] [address] PCP - General Certified Nurse Practitioner 06/09/21
--- NOTE | 2025-04-10 12:17 | ED.FALL ---
HPI - Fall General Chief Complaint: Fall Stated Complaint: rib pain Time Seen by Provider: 04/10/25 12:12 Source: patient and EMS Mode of arrival: EMS Related Data Home Medications ?Medication ?Instructions ?Recorded ?Confirmed ?Last Taken ?Type albuterol sulfate 90 mcg/actuation 2 puff inhalation Q4H PRN 01/13/25 02/26/25 02/25/25 History aerosol inhaler shortness of breath or wheezing furosemide 20 mg tablet (Lasix) 20 mg PO DAILY 02/18/25 02/26/25 02/25/25 History fluticasone fur. 100 mcg-umeclid 1 inh inhalation DAILY 02/23/25 02/26/25 02/25/25 History 62.5 mcg-vilant 25 mcg inhalat.powder (Trelegy Ellipta) albuterol sulfate 1.25 mg/3 mL 1.25 mg inhalation Q4-6H PRN 02/24/25 02/26/25 02/25/25 History solution for nebulization shortness of breath or wheezing multivitamin with minerals 1 tablet PO DAILY 02/24/25 02/26/25 02/25/25 History (Hair,Skin and Nails tablet) hydroxyzine HCl 50 mg tablet 50 mg PO DAILY PRN 03/06/25 Unknown History oxcarbazepine 300 mg tablet 300 mg PO BID 03/06/25 Unknown History aspirin 81 mg tablet,delayed 81 mg PO DAILY 03/12/25 Unknown History release calcium carbonate 600 mg PO DAILY 03/12/25 Unknown History cholecalciferol (vitamin D3) 125 125 mcg PO DAILY 03/12/25 Unknown History mcg (5,000 unit) capsule ensifentrine 3 mg/2.5 mL 2.5 ml inhalation BID 03/12/25 Unknown History suspension for nebulization (Ohtuvayre) vahszstd-gpt-fpmvw acid 0.4 1 tablet PO DAILY 03/12/25 Unknown History mg-lycopene 300 mcg-lutein 250 mcg tablet (Centrum Silver) vitamin B complex-vitamin C-folic 1 tablet PO DAILY 03/12/25 Unknown History acid 1 mg tablet Allergies Allergy/AdvReac Type Severity Reaction Status Date / Time No Known Allergies [facility]ergy Verified 04/10/25 11:00 [facility] Past Medical History Medical History Ischemic cardiomyopathy EF is low as 30 to 35% in June 2023; improved to 60 to 65% on echo obtained in August 2023. Mitral valve regurgitation COPD with emphysema Coronary artery disease Non-STEMI (non-ST elevated myocardial infarction) Pneumonia Hypertension Chronic hyponatremia Thoracic compression fracture Gastroesophageal reflux disease Osteoporosis Heavy alcohol use Anxiety and depression has previously undergone ECT treatments Hypercholesteremia Former smoker Surgical History Surgical History History of mitral valve replacement S/P triple vessel bypass History of cataract extraction History of coronary artery stent placement (06/2023) stents to the LM into LAD and proximal to mid LAD History of tonsillectomy Family History Family History Father Aneurysm Grandparent Black lung Social History Social History Social History: Surrogate medical decision maker: Valeriano Laguna, sibling. Code status: Modified code, no intubation. Smoking packs per day: 1.5 Smoking cigarettes per day: 30.0 Years smoked: 42 Smoking pack-years: 63.00 Smoking status: Former smoker Tobacco type: cigarettes Second hand tobacco smoke exposure: No Smoking end date: 06/11/19 Alcohol intake: current Alcohol use details: not for the last 2 months Substance use: former Substance use type: does not use Last use: Sunday Do You Feel Safe in your Home?: Yes Lack of Transportation: No Lack of Food: Never True Current Housing: I Have Housing Concerned About Future Housing: No Difficulty Paying Gas/Electric Bills: No Difficulty Paying for Meds: No Currently Unemployed: No Education: Master's Degree or Higher Difficulty w/ Childcare or Family Care: No Living arrangements: alone Additional living arrangements comments: Lives alone in [place]. 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 Spiritual care concerns: No Course Vital Signs Vital signs: Vital Signs Temperature 36.9 C 04/10/25 10:55 Pulse Rate 94 04/10/25 10:55 Respiratory Rate 14 04/10/25 10:55 Blood Pressure 124/83 04/10/25 10:55 Pulse Oximetry 95 04/10/25 10:55 Oxygen Delivery Room Air 04/10/25 10:55 Temperature 36.9 C 04/10/25 10:55 Pulse Rate 94 10/31/25 10:55 Respiratory Rate 14 04/10/25 10:55 Blood Pressure 124/83 04/10/25 10:55 Pulse Oximetry 95 04/10/25 10:55 Oxygen Delivery Room Air 04/10/25 10:55 Discharge Plan Discharge Patient Language: Welsh Prescriptions: No Action doxycycline hyclate 100 mg capsule 100 mg PO DAILY Qty: 14 0RF amoxicillin-pot clavulanate 875-125 mg tablet 1 tablet PO Q12H Qty: 14 0RF alendronate 70 mg tablet 70 mg PO WEEKLY Qty: 12 2RF Rx Instructions: Takes on Sunday furosemide [Lasix] 20 mg tablet 20 mg PO DAILY Trelegy Ellipta 100-62.5-25 mcg blister with device 1 inh inhalation DAILY hydroxyzine HCl 50 mg tablet 50 mg PO DAILY PRN oxcarbazepine 300 mg tablet 300 mg PO BID albuterol sulfate 90 mcg/actuation HFA aerosol inhaler 2 puff INHALATION Q4H PRN (Reason: shortness of breath or wheezing) metoprolol succinate 100 mg tablet extended release 24 hr See Rx Instructions .ROUTE .COMPLEX Qty: 30 5RF Dose Instruction: TAKE 1 TABLET BY MOUTH EVERY DAY Rx Instructions: TAKE 1 TABLET BY MOUTH EVERY DAY albuterol sulfate 1.25 mg/3 mL solution for nebulization 1.25 mg inhalation Q4-6H PRN (Reason: shortness of breath or wheezing) Hair,Skin and Nails Tablet 1 tablet PO DAILY atorvastatin 80 mg tablet See Rx Instructions .ROUTE .COMPLEX Qty: 30 5RF Dose Instruction: TAKE 1 TABLET BY MOUTH AT BEDTIME Rx Instructions: TAKE 1 TABLET BY MOUTH AT BEDTIME clopidogrel 75 mg tablet See Rx Instructions .ROUTE .COMPLEX Qty: 30 5RF Dose Instruction: TAKE 1 TABLET(75 MG) BY MOUTH DAILY Rx Instructions: TAKE 1 TABLET(75 MG) BY MOUTH DAILY potassium chloride 20 mEq tablet,ER particles/crystals See Rx Instructions .ROUTE .COMPLEX Qty: 90 0RF Dose Instruction: TAKE 1 TABLET(20 MEQ) BY MOUTH DAILY Rx Instructions: TAKE 1 TABLET(20 MEQ) BY MOUTH DAILY Centrum Silver 0.4 mg-300 mcg- 250 mcg tablet 1 tablet PO DAILY aspirin 81 mg tablet,delayed release (DR/EC) 81 mg PO DAILY calcium carbonate 600 mg calcium (1,500 mg) tablet 600 mg PO DAILY B complex-vitamin C-folic acid 1 mg tablet 1 tablet PO DAILY cholecalciferol (vitamin D3) 125 mcg (5,000 unit) capsule 125 mcg PO DAILY Ohtuvayre 3 mg/2.5 mL suspension for nebulization 2.5 ml inhalation BID guaifenesin [Mucinex] 600 mg tablet extended release 12hr 600 mg PO BID Qty: 30 0RF dexlansoprazole 30 mg capsule,biphase delayed releas 30 mg PO DAILY Qty: 90 2RF Follow-up/Referrals: Dieudonne Posada MD [Primary Care Provider, Internal Medicine]
--- OUTSIDE RECORDS SUMMARY | 2025-04-10 12:38 | XMS_ITS | Clinical Summary ---
Author Organization [facility] Address [address] [facility], [place] [address] Phone Care Team Providers Care Circus Train Supervisor Name Role Phone Ivette Barba APRN, ADMINISTRATIVE DIETITIAN Primary Care Pro vider Allergies No known active allergies Medications buPROPion, Smoking Deter, (ZYBAN) 150 MG TABLET SR 12 HR Take 150 mg by mouth 2 times daily. Active diazePAM (VALIUM) 5 MG Tablet Take 5 mg by mouth every 8 hours as needed. Active famotidine (PEPCID) 20 MG Tablet Take 20 mg by mouth 2 times daily. Active [place]-3 Fatty Acids (FISH OIL PO) Take by [...] Comments Blood Pressure 120/70 06/27/2021 1:33 PM MACHINE WELDER Pulse 66 06/27/2021 1:33 PM MACHINE WELDER Temperature 36.6 C (97.9 F) 06/27/2021 1:33 PM MACHINE WELDER Respiratory Rate 16 06/27/2021 1:33 PM MACHINE WELDER Oxygen Saturation 97% 06/27/2021 1:33 PM MACHINE WELDER Inhaled Oxygen Concentration - - Weight 78.1 kg (172 lb 1.6 oz) 06/27/2021 1:33 P M MACHINE WELDER Height 180.3 cm (5' 11) 06/27/2021 1:33 PM MACHINE WELDER Body Mass Index 24 06/27/2021 1:33 PM MACHINE WELDER Plan of Treatment Health Maintenance Due Date [...] age to complete this topic Insurance MEDICAID [place] Care Teams Circus Train Supervisor Relationship Specialty Start Date End Date Ivette Barba, LEGAL PROCESS SPECIALIST, ADMINISTRATIVE DIETITIAN [address] [place], [place] [id number] PCP - General Certified Nurse Practitioner 06/09/21
--- OUTSIDE RECORDS SUMMARY | 2025-04-10 12:38 | XMS_ITS | Clinical Summary ---
Author Organization [employer] Address [address] [facility] [place] [address] Care Team Providers Care Nurse Practitioner Home Assessments Name Role Phone Dieudonne Posada MD Primary Care Provider [phone] Source Comments [employer],non-owned Affiliates and Associated Physician Practices is amultiple site organization consisting of ambulatory clinics and hospital sitesin [place], [place], [place] and [place]. This disclosure is being madepursuant to the Care Everywhere program and may not contain all information available regarding this patient. Last updated 18.[employer] Allergies No known active allergies Medications * [...] medical care, and heating? Patient declined 02/27/2025 [facility] [place] of Occupat ional Health - Occupational Stress [...] any time in the past 12 m [facility], were you homeless or living in a long-term (including now)? 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 Gender Identity Not on file Sexual Orientation [...] this topic Medical Devices Implanted Type Area Supervisor Shuttle Preparation Device Identifier Shelf Expiration Date Model / Serial / Lot Bone Bone Mouth Procedures Procedure Name Priority Date/Time Associated Diagnosis Comments OXCARBAZEPINE BLOOD Routine 03/04/2025 9 :55 AM CDT COMPREHENSIVE METABOLIC PANEL STAT 03/02/2025 6:07 PM CDT LIPID PROFILE Routine 03/02/2025 6:10 AM CDT HEMOGLOBIN A1C Routine 03/02/2025 6:10 AM CDT from Last 3 Months Results * OXCARBAZEPINE BLOOD (03/04/2025 9:55 AM CDT) [facility] Oxcarbazepine Metabolite 12.1 10.0 - 35.0 ug/mL 03/06/2025 2:28 PM CDT [facility] ([facility]) Comment: INTERPRETIVE INFORMATION: Oxcarbazepine Metabolite, Serum Therapeutic Range: 10.0 - 35.0 ug/mL Toxic Range: >=40.0 ug/mL This test measures monohydroxyoxcarbazepine (MHD). Adverse effects may include dizziness, fatigue, nausea, headache, somnolence, ataxia, and tremor. Performed By: [facility] [address] [place] [id number] Data Collection Technician: Julián Erazo MD, PhD CLIA Number: [id number] Blood BLOOD SPECIMEN / Unknown Lab Venipuncture / Unknown 03/04/2025 9:55 AM CDT 03/04/2025 9:59 AM CDT Lucia Coronado PUPIL PERSONNEL SERVICES DIRECTOR-INTEGRATED MARKETING MANAGER LAB - CHEMISTRY ORDERAB LES Final Result [facility] ([facility]) [address] [place] [address] * (ABNORMAL) COMPREHENSIVE METABOLIC PANEL (03/02/2025 6:07 PM CDT) Glucose 133(H) 70 - 125 mg/dL 03/02/2025 6:28 PM CDT [facility] Sodium 136 136 - 145 mmol/L 03/02/2025 6:28 PM CDT [facility] Potassium 4.1 3.4 - 5.1 mmol/L 03/02/2025 6:28 PM T [facility] Chloride 99 98 - 107 mmol/L 03/02/2025 6:28 PM CDT [facility] CO2 28 22 - 29 mmol/L 03/02/2025 6:28 PM T [facility] Calcium 9.15 8.4 - 10.2 mg/dL 03/02/2025 6:28 PM CDT [facility] Anion Gap 9 6 - 16 mmol/L 03/02/2025 6:28 PM T [facility] BUN 13.1 8.4 - 25.7 mg/dL 03/02/2025 6:28 PM T [facility] Creatinine 0.63(L) 0.72 - 1.25 mg/dL 03/02/2025 6:28 PM T [facility] Alkaline Phosphatase 97 40 - 150 U/L 03/02/2025 6:28 PM CDT [facility] ALT 11 7 - 42 U/L 03/02/2025 6:28 PM CDT [facility] AST 15 5 - 34 U/L 03/02/2025 6:28 PM CDT [facility] Protein Total 6.8 6.4 - 8.3 gm/dL 03/02/2025 6:28 PM T [facility] Albumin 3.8 3.1 - 4.5 gm/dL 03/02/2025 6:28 PM CDT [facility] Globulin Total 3.0 2.6 - 4.0 gm/dL 03/02/2025 6:28 PM CDT [facility] Albumin/Globulin Ratio 1.3 0.9 - 1.6 03/02/2025 6:28 PM CDT [facility] Bilirubin Total 0.2 0.2 - 1.2 mg/dL 03/02/2025 6:28 PM CDT [facility] eGFR >90 >90 mL/min/1.7 3m2 03/02/2025 6:28 PM CDT [facility] Comment:Estimated Glomerular Filtration Rate (eGFR) calculated using the CKD-EPI Creatinine Equation (2020), per the National Kidney Foundation and [place] Society of Nephrology recommendations. Blood BLOOD SPECIMEN / Unknown Venipuncture / Unknown 03/02/2025 6:07 PM CDT 03/02/2025 6:11 PM CDT Lucia Coronado PUPIL PERSONNEL SERVICES DIRECTOR-INTEGRATED MARKETING MANAGER LAB - CHEMISTRY ORDERAB LES Final Result Performing Organization Address City/State/[facility] Co de Phone Number [facility] [address] * HEMOGLOBIN A1C (03/02/2025 6:10 AM CDT) [facility] Hemoglobin A1c 4.9 4.2 - 5.6 % 03/02/2025 6:35 AM CDT [facility] Estimated Average Glucose 94 mg/dL 03/02/2025 6:35 AM CDT [facility] Blood BLOOD SPECIMEN / Unknown Lab Venipuncture / Unknown 03/02/2025 6:10 AM CDT 03/02/2025 6:15 AM CDT Narrative [facility] - 03/02/2025 6:35 AM CDT [...] LAB - CHEMISTRY ORDERABLES F inal Result [facility] [address] [place], [place] [id number] [place] [address] * LIPID PROFILE (03/02/2025 6:10 AM CDT) [facility] Cholesterol 132 <200 mg/dL 03/02/2025 6:39 AM T [facility] Triglycerides 99 <150 mg/dL 03/02/2025 6:39 AM T [facility] HDL Cholesterol 47 >40 mg/dL 5 6:39 AM T [facility] Chol HDL Ratio 2.8 1.0 - 6.0 03/02/2025 6:39 AM T [facility] LDL Calculated 65 65 - 130 mg/dL 03/02/2025 6:39 AM T [facility] Comment:LDL is calculated us ing the Friedewald equation. VLDL Calculated 20 <=30 mg/dL 5 6:39 AM T [facility] Blood BLOOD SPECIMEN / Unknown Lab Venipuncture / Unknown 03/02/2025 6:10 AM CDT 03/02/2025 6:15 AM CDT Narrative [facility] - 03/02/2025 6:39 AM CDT [...] ORDERABLES F inal Result Performing Organization Address City/State/[facility] Co de Phone Number [facility] [address] [place] [address], [facility] from Last 3 Months Insurance [facility] Advance Directives * Full Code (Latest Code Status on File) Date Activated Date Inactivated Comments 02/27/2025 5:08 PM 03/04/2025 4:03 PM Care Teams Nurse Practitioner Home Assessments Relationship Specialty Start Date End Date Dieudonne Posada MD [address] [place] [id number] PCP - General Internal Medicine 02/27/25
--- NOTE | 2025-04-10 12:55 | ED.FALL ---
HPI - Fall General Chief Complaint: Fall Stated Complaint: rib pain Time Seen by Provider: 04/10/25 12:12 Source: patient and EMS Mode of arrival: EMS Limitations: no limitations History of Present Illness HPI Narrative: 65 years old white male came to the ED by ambulance complaining of tripping on his oxygen to and falling aneurysm wall a against the bed 7 days ago complaining of left chest pain, left abdominal pain. Worse with movement, breathing or any activities. Patient was not able to take gval-ime-axdpazx medication, lives alone, have no access to any medications. History of hypertension hyperlipidemia COPD CABG mitral valve replacement he smokes cigarettes drink alcohol and denies drug use. Related Data Home Medications ?Medication ?Instructions ?Recorded ?Confirmed ?Last Taken ?Type albuterol sulfate 90 mcg/actuation 2 puff inhalation Q4H PRN 01/13/25 02/26/25 02/25/25 History aerosol inhaler shortness of breath or wheezing furosemide 20 mg tablet (Lasix) 20 mg PO DAILY 02/18/25 02/26/25 02/25/25 History fluticasone fur. 100 mcg-umeclid 1 inh inhalation DAILY 02/23/25 02/26/25 02/25/25 History 62.5 mcg-vilant 25 mcg inhalat.powder (Trelegy Ellipta) albuterol sulfate 1.25 mg/3 mL 1.25 mg inhalation Q4-6H PRN 02/24/25 02/26/25 02/25/25 History solution for nebulization shortness of breath or wheezing multivitamin with minerals 1 tablet PO DAILY 02/24/25 02/26/25 02/25/25 History (Hair,Skin and Nails tablet) hydroxyzine HCl 50 mg tablet 50 mg PO DAILY PRN 03/06/25 Unknown History oxcarbazepine 300 mg tablet 300 mg PO BID 03/06/25 Unknown History aspirin 81 mg tablet,delayed 81 mg PO DAILY 03/12/25 Unknown History release calcium carbonate 600 mg PO DAILY 03/12/25 Unknown History cholecalciferol (vitamin D3) 125 125 mcg PO DAILY 03/12/25 Unknown History mcg (5,000 unit) capsule ensifentrine 3 mg/2.5 mL 2.5 ml inhalation BID 03/12/25 Unknown History suspension for nebulization (Ohtuvayre) chyizhnj-vxe-zbqqj acid 0.4 1 tablet PO DAILY 03/12/25 Unknown History mg-lycopene 300 mcg-lutein 250 mcg tablet (Centrum Silver) vitamin B complex-vitamin C-folic 1 tablet PO DAILY 03/12/25 Unknown History acid 1 mg tablet Allergies Allergy/AdvReac Type Severity Reaction Status Date / Time No Known Allergies Allergy Verified 04/10/25 11:00 Review of Systems Review of Systems: All systems reviewed & are unremarkable except as noted in HPI and below PMFSH Past Medical History Medical History Ischemic cardiomyopathy EF is low as 30 to 35% in June 2023; improved to 60 to 65% on echo obtained in August 2023. Mitral valve regurgitation COPD with emphysema Coronary artery disease Non-STEMI (non-ST elevated myocardial infarction) Pneumonia Hypertension Chronic hyponatremia Thoracic compression fracture Gastroesophageal reflux disease Osteoporosis Heavy alcohol use Anxiety and depression has previously undergone ECT treatments Hypercholesteremia Former smoker Surgical History Surgical History History of mitral valve replacement S/P triple vessel bypass History of cataract extraction History of coronary artery stent placement (06/2023) stents to the LM into LAD and proximal to mid LAD History of tonsillectomy Family History Family History Father Aneurysm Grandparent Black lung Social History Social History Social History: Surrogate medical decision maker: Valeriano Laguna, sibling. Code status: Modified code, no intubation. Smoking packs per day: 1.5 Smoking cigarettes per day: 30.0 Years smoked: 42 Smoking pack-years: 63.00 Smoking status: Former smoker Tobacco type: cigarettes Second hand tobacco smoke exposure: No Smoking end date: 06/11/19 Alcohol intake: current Alcohol use details: not for the last 2 months Substance use: former Substance use type: does not use Last use: Sunday Do You Feel Safe in your Home?: Yes Lack of Transportation: No Lack of Food: Never True Current Housing: I Have Housing Concerned About Future Housing: No Difficulty Paying Gas/Electric Bills: No Difficulty Paying for Meds: No Currently Unemployed: No Education: Master's Degree or Higher Difficulty w/ Childcare or Family Care: No Living arrangements: alone Additional living arrangements comments: Lives alone in [place]. 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 Spiritual care concerns: No Exam Narrative: General appearance: Well-developed, well-nourished Skin: Normal color Head: Normocephalic, nontraumatic Eyes: Clear conjunctiva ENT: Oropharynx normal, ears normal, nose normal Neck: Supple, nontender Chest and respiratory: Airway patent, no respiratory distress, no accessory muscle use diffuse tenderness left mid axillary line, no bruises Heart: Regular rate/rhythm Abdomen: Soft, moderate tenderness left abdomen with quite a bit of bruises at the mid axillary line of left abdomen no organomegaly, quiet bowel sounds Vascular: Normal peripheral pulses, normal capillary refill. Musculoskeletal: Normal range of motion, nontender back Neurologic: Alert and oriented ?3, PU[employer] is normal as tested, no gross motor deficit Course Vital Signs Vital signs: Vital Signs Temperature 36.9 C 04/10/25 10:55 Pulse Rate 94 04/10/25 10:55 Respiratory Rate 14 04/10/25 10:55 Blood Pressure 124/83 04/10/25 10:55 Pulse Oximetry 95 04/10/25 10:55 Oxygen Delivery Room Air 04/10/25 10:55 Temperature 36.9 C 04/10/25 10:55 Pulse Rate 94 04/10/25 10:55 Respiratory Rate 14 04/10/25 10:55 Blood Pressure 124/83 04/10/25 10:55 Pulse Oximetry 95 04/10/25 10:55 Oxygen Delivery Room Air 04/10/25 10:55 MDM - Fall MDM Narrative Medical decision making narrative: Patient came with a fall causing left chest and left abdominal pain 7 days ago Vital signs are stable Physical examination consistent with tenderness left chest and left abdomen mid axillary line with bruises of the abdomen Differential diagnosis include rib fracture, hemothorax, pneumothorax, splenic injury, contusion Blood workup today includes CBC, CMP, PT PTT CT chest abdomen and pelvis with IV contrast showed Differential Diagnosis Differential diagnosis: Likely other (As above) Medical Records Attestation: I reviewed the patient's medical records. Lab Data Attestation: I reviewed the patient's lab results. Imaging Data Radiologist's impression: Impressions Chest/Abdomen/Pelvis CT 04/10/25 13:20 IMPRESSION: 1. Minimally displaced fracture of the posterolateral left eighth rib. 2. Decrease in size of a now very small left pleural effusion with unchanged mild dependent atelectasis in the left lower lobe. 3. Moderate emphysema with new small regions of peripheral septal line thickening in the bilateral upper lobes which are most likely infectious/inflammatory in etiology. 4. Bilateral nonobstructing nephrolithiasis. 5. Stool and small amount of fluid scattered throughout the otherwise normal colon consistent with nonspecific diarrhea. Critical Care Time Critical Care Time Critical Care Time: No Discharge Plan Discharge Clinical Impression: Fracture of left eighth rib Patient Disposition: Home Condition: Guarded Prognosis Instructions: Rib Fracture (ED) Additional Instructions: RETURN IF SYMPTOMS ARE WORSENING , CALL YOUR FAMILY PHYSICIAN FOR APPOINTMENT, TAKE TYLENOL, IBUPROFEN NEEDED FOR ACHES AND PAIN, CONTINUE HOME MEDICATIONS. Patient Language: Burkinan Prescriptions: No Action doxycycline hyclate 100 mg capsule 100 mg PO DAILY Qty: 14 0RF amoxicillin-pot clavulanate 875-125 mg tablet 1 tablet PO Q12H Qty: 14 0RF alendronate 70 mg tablet 70 mg PO WEEKLY Qty: 12 2RF Rx Instructions: Takes on Sunday furosemide [Lasix] 20 mg tablet 20 mg PO DAILY Trelegy Ellipta 100-62.5-25 mcg blister with device 1 inh inhalation DAILY hydroxyzine HCl 50 mg tablet 50 mg PO DAILY PRN oxcarbazepine 300 mg tablet 300 mg PO BID albuterol sulfate 90 mcg/actuation HFA aerosol inhaler 2 puff INHALATION Q4H PRN (Reason: shortness of breath or wheezing) metoprolol succinate 100 mg tablet extended release 24 hr See Rx Instructions .ROUTE .COMPLEX Qty: 30 5RF Dose Instruction: TAKE 1 TABLET BY MOUTH EVERY DAY Rx Instructions: TAKE 1 TABLET BY MOUTH EVERY DAY albuterol sulfate 1.25 mg/3 mL solution for nebulization 1.25 mg inhalation Q4-6H PRN (Reason: shortness of breath or wheezing) Hair,Skin and Nails Tablet 1 tablet PO DAILY atorvastatin 80 mg tablet See Rx Instructions .ROUTE .COMPLEX Qty: 30 5RF Dose Instruction: TAKE 1 TABLET BY MOUTH AT BEDTIME Rx Instructions: TAKE 1 TABLET BY MOUTH AT BEDTIME clopidogrel 75 mg tablet See Rx Instructions .ROUTE .COMPLEX Qty: 30 5RF Dose Instruction: TAKE 1 TABLET(75 MG) BY MOUTH DAILY Rx Instructions: TAKE 1 TABLET(75 MG) BY MOUTH DAILY potassium chloride 20 mEq tablet,ER particles/crystals See Rx Instructions .ROUTE .COMPLEX Qty: 90 0RF Dose Instruction: TAKE 1 TABLET(20 MEQ) BY MOUTH DAILY Rx Instructions: TAKE 1 TABLET(20 MEQ) BY MOUTH DAILY Centrum Silver 0.4 mg-300 mcg- 250 mcg tablet 1 tablet PO DAILY aspirin 81 mg tablet,delayed release (DR/EC) 81 mg PO DAILY calcium carbonate 600 mg calcium (1,500 mg) tablet 600 mg PO DAILY B complex-vitamin C-folic acid 1 mg tablet 1 tablet PO DAILY cholecalciferol (vitamin D3) 125 mcg (5,000 unit) capsule 125 mcg PO DAILY Ohtuvayre 3 mg/2.5 mL suspension for nebulization 2.5 ml inhalation BID guaifenesin [Mucinex] 600 mg tablet extended release 12hr 600 mg PO BID Qty: 30 0RF dexlansoprazole 30 mg capsule,biphase delayed releas 30 mg PO DAILY Qty: 90 2RF Follow-up/Referrals: Dieudonne Posada MD [Primary Care Provider, Internal Medicine]
--- NOTE | 2025-04-10 14:00 | PC.NURSE ---
Pt had one unsuccessful attempt for blood draw for ED RN and one unsuccessful IV attempt in ambulance en route. Pt declining any more needle sticks. made aware.
--- NOTE | 2025-04-10 14:49 | PC.NURSE ---
Pt declined lab work to be drawn and also when asked if he could provide urine specimen, pt stated No I cant do that, I am dehydrated, I need water. aware, fluid orders placed.
[2025-04-10] MEDS: SODIUM CHLORIDE 0.9% IV 1,000 ML 999 ML IV CONT (14:59)
[2025-04-10 16:30] VITALS: BP 153/103; PULSE 96; RESP 20; O2SAT 97
== END 2025-04-10 16:49 | disposition home or self-care (01) ==
PROVIDERS: Emergency Provider Emergency Medicine; PCP Emergency Medicine
DX: S22.32XA Fracture of one rib, left side, initial encounter for closed fracture (principal); J43.9 Emphysema, unspecified; I10 Essential (primary) hypertension; I34.0 Nonrheumatic mitral (valve) insufficiency; I25.10 Atherosclerotic heart disease of native coronary artery without angina pectoris; I25.5 Ischemic cardiomyopathy; I25.2 Old myocardial infarction; E87.1 Hypo-osmolality and hyponatremia; E78.00 Pure hypercholesterolemia, unspecified; M81.0 Age-related osteoporosis without current pathological fracture; F41.9 Anxiety disorder, unspecified; F32.A Depression, unspecified; Z87.01 Personal history of pneumonia (recurrent); Z95.1 Presence of aortocoronary bypass graft; Z95.5 Presence of coronary angioplasty implant and graft; Z95.2 Presence of prosthetic heart valve; Z87.891 Personal history of nicotine dependence; Z98.49 Cataract extraction status, unspecified eye; N20.0 Calculus of kidney; Z79.02 Long term (current) use of antithrombotics/antiplatelets; Z79.82 Long term (current) use of aspirin; Z79.899 Other long term (current) drug therapy; W18.09XA Striking against other object with subsequent fall, initial encounter
CPT/HCPCS: 71250; 74176; 96360; 99284; J7030

== ENCOUNTER 2025-06-08 12:06 | Outpatient (CLI) | payer OTHER, SELFPAY ==
--- OUTSIDE RECORDS SUMMARY | 2025-06-08 12:31 | XMS_ITS | Clinical Summary ---
Author Organization [facility] Address [address] [facility], [place] [address] Phone Care Team Providers Care Lead Software Development Engineer Name Role Phone Ivette Barba APRN, SECRETARY TO THE VICE PRESIDENT Primary Care Pro vider Allergies No known active allergies Medications buPROPion, Smoking Deter, (ZYBAN) 150 MG TABLET SR 12 HR Take 150 mg by mouth 2 times daily. Active diazePAM (VALIUM) 5 MG Tablet Take 5 mg by mouth every 8 hours as needed. Active famotidine (PEPCID) 20 MG Tablet Take 20 mg by mouth 2 times daily. Active [place]-3 Fatty Acids (FISH OIL PO) Take by [...] Comments Blood Pressure 120/70 06/27/2021 1:33 PM ANTHROPOLOGY FACULTY MEMBER Pulse 66 06/27/2021 1:33 PM ANTHROPOLOGY FACULTY MEMBER Temperature 36.6 C (97.9 F) 06/27/2021 1:33 PM ANTHROPOLOGY FACULTY MEMBER Respiratory Rate 16 06/27/2021 1:33 PM ANTHROPOLOGY FACULTY MEMBER Oxygen Saturation 97% 06/27/2021 1:33 PM ANTHROPOLOGY FACULTY MEMBER Inhaled Oxygen Concentration - - Weight 78.1 kg (172 lb 1.6 oz) 06/27/2021 1:33 P M ANTHROPOLOGY FACULTY MEMBER Height 180.3 cm (5' 11) 06/27/2021 1:33 PM ANTHROPOLOGY FACULTY MEMBER Body Mass Index 24 06/27/2021 1:33 PM ANTHROPOLOGY FACULTY MEMBER Plan of Treatment Health Maintenance Due Date Last Done Comments Hepatitis C Virus (HCV) Screening 1962 TdaP Immunization 1962 Pneumococcal Immunization (50+ years) (1 of 2 - PCV) 1981 Cologuard 2007 Colonoscopy 2007 Colorectal Cancer Screening 2007 Immunochemical Fecal Occult Blood 2007 Respiratory Syncytial Virus (RSV) Immunization (Adult) (1 - Risk 50-74 years 1-dose series) 2012 Zoster Immunization (1 of 2) 2012 Influenza Immunization (#1) 2025 04/14/2019, 1 07/30/2017 SARS-COV-2 Immunization ( season) 2025 03/13/2022, 03/30/2021, 09/20/2020, Additional history exists Varicella Immunization Discontinued 09/28/2015, 2015 Hepatitis B Immunization Aged Out No longer eligible based on patient's age to complete this topic Human Papillomavirus (HPV) Immunization (No Doses Required) Completed Meningococcal Immunization (ACWY) Aged Out No longer eligible based on patient's age to complete this topic Rotavirus Immunization Aged Out No lo nger eligible based on patient's age to complete this topic Insurance [place]ICA[place] Care Teams Lead Software Development Engineer Relationship Specialty Start Date End Date Ivette Barba, ZAINA, SECRETARY TO THE VICE PRESIDENT [address] [place], [place] [id number] PCP - General Certified Nurse Practitioner 06/09/21
--- OUTSIDE RECORDS SUMMARY | 2025-06-08 12:31 | XMS_ITS | Clinical Summary ---
Author Organization [facility] Address [address] [place] [address] Care Team Providers Care Supervisor Shuttle Fitting Name Role Phone Dieudonne Posada MD Primary Care Provider [phone] Source Comments [facility],non-owned Affiliates and Associated Physician Practices is amultiple site organization consisting of ambulatory clinics and hospital sitesin [place], [place], [place] and [place]. This disclosure is being madepursuant to the Care Everywhere program and may not contain all information available regarding this patient. Last updated 18.[facility] Allergies No known active allergies Medications * This document contains information received from the source organization and may not represent a complete record from that organization. * Be aware that medications may not be up to date on this document. Alwaysverify current medications with the patient. albuterol HFA (PROVENTIL; VENTOLIN; PROAIR) 108 (90 Base) MCG/ACT inhalerIndicatio ns:Asthma,Bronch ospasm Inhale 2 (two) puffs by mouth every 4 hours as needed Active isosorbide mononitrate CR 24hr (Imdur) 30 MG tabletIndication s:Stable Angina Pectoris Take 1 (one) tablet by mouth once daily 5 Active furosemide (Lasix) 20 MG tabletIndication s:Hypertension Take 1 (one) tablet by mouth once daily 5 Active potassium chloride ER (K-TAB) 20 MEQ tabletIndication s:Hypokalemia Take 1 (one) tablet by mouth once daily 5 Active alendronate (Fosamax) 70 MG tabletIndication s:Osteopenia Take 1 (one) tablet by mouth every 7 days (once a week) before meal 5 Active clopidogrel (plaVIX) 75 MG tabletIndication s:Thromboembolic Disease Prophylaxis Take 1 (one) tablet by mouth once daily 5 Active Trelegy Ellipta 100-62.5-25 MCG/ACT inhalerIndicatio ns:Asthma,Chroni c Obstructive Pulmonary Disease Inhale 1 (one) puff by mouth once daily 5 Active albuterol (Accuneb) 1.25 MG/3ML nebulizer solutionIndicati ons:Bronchospasm Inhale 3 mL by mouth every 6 hours as needed 5 Active atorvastatin (Lipitor) 80 MG tabletIndication s:Hyperlipidemia Use 1 (one) tablet as instructed at bedtime 5 Active metoprolol succinate XL 24hr (Toprol XL) 100 MG tabletIndication s:Hypertension Take 1 (one) tablet by mouth once daily 5 Active hydrOXYzine HCl (Atarax) 50 MG tabletIndication s:Anxiety Take 1 (one) tablet by mouth once daily as needed Reasons: Feeling Anxious 14 tablet 1 5 Active OXcarbazepine (Trileptal) 300 MG tabletIndication s:Manic Phase of Bipolar Mood Disorder Take 1 (one) tablet by mouth 2 times daily for 7 days Reasons: Manic Phase of Manic-Depressio n 14 tablet 3 5 Active traZODone (Desyrel) 50 MG tabletIndication s:Major Depressive Disorder Take 1 (one) tablet by mouth nightly as needed for Insomnia Reasons: Major Depressive Disorder 7 tablet 3 5 Active pantoprazole EC (Protonix) 40 MG tabletIndication s:Heartburn,Stre ss Ulcer Take 1 (one) tablet by mouth once daily for 30 days Reasons: Heartburn, 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 Patient declined 02/27/2025 [facility] [place] [facility] - Occupational Stress [...] any time in the past 12 m [facility], were you homeless or living in a prison (including now)? 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 Gender Identity Not on file Sexual Orientation [...] 50+ (1 of 2 - PCV) 1981 Respiratory Syncytial Virus (RSV) Vaccine Pt: or over 60 yrs (1 - Risk 50-74 years 1-dose series) 2012 ZOSTER VACCINE (1 of 2) 2012 COLOGUARD (AGES 45-75) - COL ON CA [...] this topic Medical Devices Implanted Type Area Dental Instrument Maker Device Identifier Shelf Expiration Date Model / Serial / Lot [employer] M[employer] Insurance [facility] Advance Directives * Full Code (Latest Code Status on File) Date Activated Date Inactivated Comments 02/27/2025 5:08 PM 03/04/2025 4:03 PM Care Teams Supervisor Shuttle Fitting Relationship Specialty Start Date End Date Dieudonne Posada MD [address] [place], [place] [phone] PCP - General Internal Medicine 02/27/25
[2025-06-08 13:55] LABS: Alanine Aminotransferase 25 U/L (6-50); Albumin Level 4.6 g/dL (3.5-5.1); Alkaline Phosphatase 114 U/L (38-126); Anion Gap 3 mmol/L (4-12); Aspartate Amino Transferase 87 U/L (17-59); Bilirubin,Total 0.8 mg/dL (0.2-1.3); Blood Urea Nitrogen 17 mg/dL (9-20); Calcium 9.5 mg/dL (8.4-10.2); Carbon Dioxide 34 mmol/L (22-30); Chloride 100 mmol/L (98-107); Cholesterol 159 mg/dL (0-200); Estimated Glomerular Filt Rate > 60; Glucose 105 mg/dL (65-110); HDL Direct 54 mg/dL; Potassium 4.6 mmol/L (3.4-5.0); Sodium 137 mmol/L (137-145); Total Protein 7.8 g/dL (6.3-8.2); Triglycerides 148 mg/dL (<150)
== END 2025-06-08 12:07 | disposition home or self-care (01) ==
LOC: ANHGOSHLAB 12:06
PROVIDERS: PCP Emergency Medicine; Visit Provider Emergency Medicine
DX: E78.5 Hyperlipidemia, unspecified (principal); E55.9 Vitamin D deficiency, unspecified
CPT/HCPCS: 36415; 80053; 80061; 82306